=== PATIENT | female | born 1960 | race Caucasian/White ===

== ENCOUNTER 2018-05-27 09:40 | Emergency (ER) | payer OTHER, SELFPAY ==
[2018-05-27 09:40] VITALS: BP 164/82; PULSE 57; RESP 18; TEMP 36.4; O2SAT 99; BMI 40.3
--- NOTE | 2018-05-27 10:07 | ED.VISSUMM ---
- ER Visit Summary Date of Service: 05/27/18 Chief Complaint: Fall and closed head injury History of Present Illness: The patient is a 57 F walking up steps at work tripped and fell forward nor glass door striking with her head. She denies any LOC. She is not on blood thinners. She denies other injuries. She denies any significant headache or neck pain. Work wanted her to be checked out. Physical Examination: Well-appearing middle-aged female. Vital signs are stable afebrile. HEENT exam pupils round reactive light. Extra motions are intact. No facial trauma. There is no hematoma or laceration to her scalp. It is not tender. She struck it on the left top part of her head and there is no signs of trauma. C-spine nontender normal range of motion. Trachea midline. Lungs clear to auscultation bilaterally. Chest wall nontender. Heart regular rate and rhythm no murmur. Abdomen soft nontender normal bowel sounds. No peritoneal signs. Pelvic girdle intact. She is moving all 4 extremities. They are neurovascularly intact. Nontender. Normal range of motion. 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 Dorsi plantar flexion intact. Back is nontender. Spine is nontender. Neurologic exam is normal. GCS of 15. She can stand and ambulate without any difficulty. Fingertip to nose and heel bloom all within normal limits. Test Results: None patient meets no criteria at this time to need any type of brain imaging. Emergency Department Course and Treatment: Head injury instructions. Treatment Plan: Discharge. Head injury instructions. Patient deferred any Tylenol or Motrin at this time. Disposition: Discharge Impression: Fall at work Closed head injury Worker's comp This note was generated with [employer] dictation software. It may contain incorrect words, spelling, and punctuation that were not noted in review of the chart prior to signing ED Disposition - Plan for ED Patient: Chief Complaint: Fall
--- NOTE | 2018-05-27 10:10 | ED.DCSUM_ITS ---
- ER Visit Summary Date of Service: 05/27/18 Chief Complaint: Fall and closed head injury History of Present Illness: The patient is a 57 F walking up steps at work tripped and fell forward nor glass door striking with her head. She denies any LOC. She is not on blood thinners. She denies other injuries. She denies any significant headache or neck pain. Work wanted her to be checked out. Physical Examination: Well-appearing middle-aged female. Vital signs are stable afebrile. HEENT exam pupils round reactive light. Extra motions are intact. No facial trauma. There is no hematoma or laceration to her scalp. It is not tender. She struck it on the left top part of her head and there is no signs of trauma. C-spine nontender normal range of motion. Trachea midline. Lungs clear to auscultation bilaterally. Chest wall nontender. Heart regular rate and rhythm no murmur. Abdomen soft nontender normal bowel sounds. No peritoneal signs. Pelvic girdle intact. She is moving all 4 extremities. They are neurovascularly intact. Nontender. Normal range of motion. 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 Dorsi plantar flexion intact. Back is nontender. Spine is nontender. Neurologic exam is normal. GCS of 15. She can stand and ambulate without any difficulty. Fingertip to nose and heel bloom all within normal limits. Test Results: None patient meets no criteria at this time to need any type of brain imaging. Emergency Department Course and Treatment: Head injury instructions. Treatment Plan: Discharge. Head injury instructions. Patient deferred any Tylenol or Motrin at this time. Disposition: Discharge Impression: Fall at work Closed head injury Worker's comp This note was generated with [employer] dictation software. It may contain incorrect words, spelling, and punctuation that were not noted in review of the chart prior to signing ED Disposition - Plan for ED Patient: Chief Complaint: Fall
--- NOTE | 2018-05-27 10:10 | ED.DEP ---
ED Disposition - Plan for ED Patient: Disposition: Home or Assisted Living Chief Complaint: Fall Instructions: ED Mechanical Fall, ED Head Injury Closed Referrals: [facility] [GROUP OF PHYSICIANS] - Additional Instructions: Ice to all sore areas. Tylenol and Motrin for pain. Return if severe headache, vomiting or not acting herself.
== END 2018-05-27 10:36 | disposition home or self-care (01) ==
PROVIDERS: Emergency Provider Emergency Medicine; Family Provider Student in an Organized Health Care Education/Training Program; PCP Student in an Organized Health Care Education/Training Program
DX: S09.90XA Unspecified injury of head, initial encounter (principal); R40.2410 Glasgow coma scale score 13-15, unspecified time; W01.0XXA Fall on same level from slipping, tripping and stumbling without subsequent striking against object, initial encounter; Y93.01 Activity, walking, marching and hiking; Y92.9 Unspecified place or not applicable; I10 Essential (primary) hypertension; M19.90 Unspecified osteoarthritis, unspecified site; Z79.899 Other long term (current) drug therapy
CPT/HCPCS: 99282

== ENCOUNTER 2018-05-29 16:57 | Emergency (ER) | payer OTHER, SELFPAY ==
[2018-05-29 16:59] VITALS: BP 174/96; PULSE 58; RESP 16; TEMP 36.1; BMI 40.6
--- NOTE | 2018-05-29 19:11 | ED.VISSUMM ---
- ER Visit Summary Date of Service: 05/29/18 Chief Complaint: Head injury History of Present Illness: The patient is a 57 F who presents with a headache. She had a head injury 2 days ago. She slipped while walking up steps and hit her head into a door. She notes that this broke the door. There was no loss of consciousness. No amnesia. Since that time she complains of increased headache and blurry vision. She currently rates her pain a 7 out of 10. It is aching in nature. No vomiting. She is not anticoagulated. She became more concerned due to her worsening symptoms and returned requesting imaging. Physical Examination: Afebrile blood pressure 174/96 vitals otherwise normal No neck tenderness Heart regular rate and rhythm Lungs are clear Active full range of motion ?4 Alert and oriented with a GCS of 15 no focal or lateralizing neurological deficits Test Results: CT the head is normal Emergency Department Course and Treatment: I explained the patient that my clinical suspicion for skull fracture or intracranial hemorrhage is very low. I did advise that her symptoms are consistent with a concussion. She is requesting CT imaging. We did discuss risks and benefits of obtaining imaging including radiation exposure risk. She wishes to proceed. CT of the head is normal. She was advised on supportive care. She was instructed on signs and symptoms to monitor for, conditions under which to return to the emergency department. She discharged home in good condition. Treatment Plan: [] Disposition: Discharge Impression: Closed head injury with concussion This note was generated with [employer] dictation software. It may contain incorrect words, spelling, and punctuation that were not noted in review of the chart prior to signing ED Disposition - Plan for ED Patient: Chief Complaint: Head Injury Referrals: Ted Monroe DO [Primary Care Provider] -
--- NOTE | 2018-05-29 19:13 | ED.DEP ---
ED Disposition - Plan for ED Patient: Chief Complaint: Head Injury Instructions: ED Head Injury Closed, ED Concussion Referrals: Ted Monroe DO [Primary Care Provider] -
[2018-05-29 19:26] VITALS: BP 152/106; PULSE 55; RESP 18; O2SAT 96
== END 2018-05-29 19:26 | disposition home or self-care (01) ==
LOC: ED 17:54
PROVIDERS: Emergency Provider Emergency Medicine; Family Provider Student in an Organized Health Care Education/Training Program; PCP Student in an Organized Health Care Education/Training Program
DX: S06.0X0A Concussion without loss of consciousness, initial encounter (principal); R40.2410 Glasgow coma scale score 13-15, unspecified time; W01.0XXA Fall on same level from slipping, tripping and stumbling without subsequent striking against object, initial encounter; Y93.01 Activity, walking, marching and hiking; Y92.9 Unspecified place or not applicable; I10 Essential (primary) hypertension; Z86.39 Personal history of other endocrine, nutritional and metabolic disease; Z79.899 Other long term (current) drug therapy
CPT/HCPCS: 70450; 99282

== ENCOUNTER → 2018-09-13 06:58 | Outpatient (CLI) | payer OTHER, SELFPAY ==
--- NOTE | 2018-09-13 07:03 | CT_ITS ---
STUDY: CT ABDOMEN AND PELVIS WITH AND WITHOUT CONTRAST REASON FOR EXAM: Female, 58 years old. Microscopic hematuria and urinary urgency. RADIATION DOSAGE (If Supplied By Facility): CTDIvol = ( 30.17 ) mGy, DLP = ( 4190.57 ) mGycm TECHNIQUE: Transaxial images were obtained from the dome of the diaphragm to the symphysis pubis without oral contrast. 100 ml of Isovue 300 contrast was administered. Sagittal and coronal images were reconstructed. Individualized dose optimization techniques were used for this CT. COMPARISON: None. FINDINGS: The visualized lung bases are unremarkable. The visualized portions of the heart are within normal limits. There is decreased attenuation of the liver consistent with steatosis. Normal gallbladder and extrahepatic biliary system. Normal spleen. Normal pancreas. Normal bilateral adrenal glands. Normal right kidney. There is moderate cortical atrophy of the left kidney, consistent with chronic medical renal disease. Nonobstructive tiny calculus is seen in the mid pole calyx of the left kidney. Subcentimeter cyst in the lower pole of the left kidney. There is a 7.3 mm calculus in the distal portion of the left ureter just proximal to the left ureterovesical junction. Normal visualized stomach. Normal small intestine. Moderate amount of fecal material is seen in the colon. The appendix is visualized and appears normal. Normal abdominal aorta. Normal inferior vena cava. Normal retroperitoneum. The urinary bladder is only partially filled with contrast. There is a small umbilical hernia containing fat. Normal osseous structures. CT/CT Abd/Pelvis W/WO Contrast IMPRESSION: Moderate atrophy of the left kidney. 7.3 mm calculus in the distal portion of the left ureter just proximal to the ureterovesical junction. Diffuse fatty infiltration of the liver. Electronically Signed: Joe Lucero MD at 11:13 EST Tel [phone], Service support ,
== END ==
PROVIDERS: Family Provider Student in an Organized Health Care Education/Training Program; PCP Student in an Organized Health Care Education/Training Program; Referring Provider Urology; Visit Provider Urology
DX: R31.29 Other microscopic hematuria (principal)
CPT/HCPCS: 74178; Q9967; A4216

== ENCOUNTER 2018-09-27 11:24 | Day surgery (SDC) | payer OTHER, SELFPAY ==
[2018-09-23 12:43] LABS: Hematocrit 41.4 % (37-47); Hemoglobin 14.1 g/dl (12.0-15.0); Mean Corp Hgb Conc 34.1 g/gl (32-36); Mean Corpuscular Hgb 29.4 pg (27.0-32.0); Mean Corpuscular Volume 86.4 fL (81-99); Mean Platelet Vol. 11.4 fl (6.2-12.0); Platelet Count 174 K/mm3 (150-450); RBC Distribution Width CV 12.6 % (11.6-14.6); RBC Distribution Width SD 39.4 fl (35.1-43.9); Red Blood Count 4.79 M/mm3 (4.2-5.4); White Blood Count 7.2 K/mm3 (4.4-11.0)
[2018-09-23 12:56] LABS: Scan Indicated on CBC? Y/N NO
[2018-09-23 13:09] LABS: Prothrombin Time (Protime)PT. 13.1 SECONDS (11.7-14.9)
[2018-09-23 13:10] LABS: Partial Thromboplast Time 29.5 Seconds (24.1-36.2)
[2018-09-23 14:05] LABS: Pregnancy, Serum, hCG Quali. NEGATIVE Negative (0-9 Nonpreg)
[2018-09-27] VITALS (7 sets, daily range): BP systolic 125–144; BP diastolic 70–85; PULSE 55–65; RESP 14–18; TEMP 36.1–37.3; O2SAT 78–98; BMI 40.6
--- NOTE | 2018-09-27 12:47 | DCINST_ITS ---
You will use the following diet at home:: No restrictions Your food should be the consistency of: Regular Discharge Activity: Return to Normal Activity, May Drive, May not drive while taking narcotic pain medications., May Shower Return to work on:: 09/28/18 May shower in (days): 0 May resume sexual activity in: 3 weeks Call your doctor if your incision/area has: Sudden Increased Bleeding, Foul Smelling Discharge Call your doctor if you observe: Fever of 101 or Higher, Inability to urinate, Inability to have a bowel movement, Using more than one pad per hour, Shortness of breath, Chest pain, Calf discomfort, Uncontrolled pain Cleanse incision/area with: Soap & Water Allergies/Adverse Reactions: Allergies No Known Allergies Allergy (Verified 09/26/18 14:00) Medications to take at Discharge Celecoxib [Celebrex] 200 mg PO DAILY 10/10/13 Hydrochlorothiazide 12.5 mg PO DAILY 05/29/18 Metoprolol Succinate [Toprol Xl] 100 mg PO QHS 05/29/18 cholecalciferol (vitamin D3) 2,000 unit tablet 5,000 unit PO DAILY 90 Days #90 06/03/18 Estrogens, Conjugated [Premarin] 1 dose VAGINAL QODAY 09/26/18 Fluoxetine [Prozac] 20 mg PO DAILY 09/26/18 Multivitamins,Ther W-Minerals [Multivitamin With Minerals] 1 tablet PO DAILY 09/26/18 Ibuprofen 600 mg PO 4X/DAY #30 tab 09/27/18 The following prescriptions were given: Ibuprofen 600 mg PO 4X/DAY #30 tab Primary Care Physician: Ted Monroe DO [Primary Care Provider] - Test Results: Test results from this visit will be discussed in further detail at your follow- up appointment, if applicable. Please Follow Up With: Oh Irizarry MD When: one to two weeks Proposed Discharge Date: 09/27/18
--- NOTE | 2018-09-27 12:47 | PCM.OPRPT ---
Problem List (1) Postmenopausal bleeding Status: Chronic Report of Operation Date of Procedure: 09/27/18 Pre-Operative Diagnosis: Postmenopausal bleeding Post-Operative Diagnosis: Same Surgery/Procedure Performed:: Hysteroscopy, Dilation and Curettage, Endometrial polypectomy Description of Surgical Findings:: Normal appearing cervix. Uterine cavity normal contour. Lining not thickened except for small polyp located near fundus posteriorly postal superintendent: None Type of Anesthesia:: General Anesthesiologist: Darren Rodriguez Special Medications: none Specimen's removed: Endometrial curettings/polyp Drains: none Estimated Blood Loss (mL): 10cc Fluids Replaced: 500cc LR Description of Procedure: Ramona was taken to the OR with IV running. She was given two grams of Cefotetan intravenously for surgical prophylaxis. General anesthesia with LMA introduced without complication. She was then prepped and draped in the dorsal lithotomy position. The bladder was drained with a red rubber catheter. A weighted speculum was placed in the posterior vagina and the anterior lip of the cervix identified and grasped anteriorly with a single toothed tenaculum. The uterus sounded to 8 cm. The cervix was then serially dilated to 27 albanian. The hysteroscope was then placed into the endometrial cavity and findings were as mentioned above. A sharp curettage was then performed. Polyp forceps were used to dislodge the polyp. The hysteroscope was reintroduced to ensure complete removal of the polyp. All instruments were then removed from the vagina. Hemostasis was good. The remainder of the case was performed by Dr. Mccabe. Please see her dictation for the remainder of the case. Grafts/Implants Used: none - Complications none - Admit VTE Documentation VTE Present on Admission: No VTE Mechan Device Prophylaxis: SCD's VTE Pharm Prophylaxis ordered?: No
--- NOTE | 2018-09-27 12:52 | OP.PCM_ITS ---
Problem List (1) Postmenopausal bleeding Status: Chronic Report of Operation Date of Procedure: 09/27/18 Pre-Operative Diagnosis: Postmenopausal bleeding Post-Operative Diagnosis: Same Surgery/Procedure Performed:: Hysteroscopy, Dilation and Curettage, Endometrial polypectomy Description of Surgical Findings:: Normal appearing cervix. Uterine cavity normal contour. Lining not thickened except for small polyp located near fundus posteriorly professor of pathology: None Type of Anesthesia:: General Anesthesiologist: Darren Rodriguez Special Medications: none Specimen's removed: Endometrial curettings/polyp Drains: none Estimated Blood Loss (mL): 10cc Fluids Replaced: 500cc LR Description of Procedure: Ramona was taken to the OR with IV running. She was given two grams of Cefotetan intravenously for surgical prophylaxis. General anesthesia with LMA introduced without complication. She was then prepped and draped in the dorsal lithotomy position. The bladder was drained with a red rubber catheter. A weighted speculum was placed in the posterior vagina and the anterior lip of the cervix identified and grasped anteriorly with a single toothed tenaculum. The uterus sounded to 8 cm. The cervix was then serially dilated to 27 pashto. The hysteroscope was then placed into the endometrial cavity and findings were as mentioned above. A sharp curettage was then performed. Polyp forceps were used to dislodge the polyp. The hysteroscope was reintroduced to ensure complete removal of the polyp. All instruments were then removed from the vagina. Hemostasis was good. The remainder of the case was performed by Dr. Mccabe. Please see her dictation for the remainder of the case. Grafts/Implants Used: none - Complications none - Admit VTE Documentation VTE Present on Admission: No VTE Mechan Device Prophylaxis: SCD's VTE Pharm Prophylaxis ordered?: No
--- NOTE | 2018-09-27 13:05 | EMB_PTH ---
PATIENT: DECLAN VILLEGAS LOC: [facility] [place][id number] AGE/SX: 58/F ROOM: RE09/27/[address]: Dr. Berenice Mccabe MD : [id number] BED: DIS: 09/27/2018 SPEC #: [id number] RECD: 09/27/18 15:05 STATUS: RODRÍGUEZ REQ #: [id number] MARU: 09/27/18 13:[address]: Berenice Mccabe DEPT: SURGICAL PATHOLOGY RECD BY: Rayshawn Ren ENTERED: 09/28/18 10:18 SP TYPE: ENDOM BX/C OTHR DR: MD Dr. Ted Martins, Tissues: A - Endometrium, NOS B - CALCULI Procedures: Surgery Specimen Level I Surgery Specimen Level IV HEADER OPERATION: Hysteroscopy, dilation and curettage, polypectomy PRE-OP DIAGNOSIS: Postmenopausal bleeding TISSUE SUBMITTED: A - Endometrial curettings, B - Calculi for analysis MICROSCOPIC DIAGNOSIS A. Endometrium, curettings: Polypoid fragment of endometrium with mild disorder. Strips of benign superficial glandular and squamous mucosa. B. Left ureteral calculus, removal: Fragments of unremarkable calculi (gross diagnosis only). AM:bev 09/29/18 COMMENT A. The specimen may represent fragments of an endometrial polyp. B. The calculus is submitted in its entirety for chemical stone analysis. The results from this study will be reported separately. MICROSCOPIC DESCRIPTION Slides are reviewed. GROSS DESCRIPTION A - Received in fixative is one container labeled with the patient's name and designated endometrial curettings. The specimen consists of multiple irregular fragments of red-giles soft tissue that in aggregate measure 2.5 x 1.5 x 0.1 cm. The specimen is totally submitted in one cassette. B - Received in fixative is one container labeled with the patient's name and designated left ureteral stone. The specimen consists of two irregular dark giles calculi that in aggregate measure 0.5 x 0.3 x 0.2 cm. The calculi are submitted in their entirety for chemical stone analysis. / AM:bev 09/28/18 TC: 5 CPT: 27458, 01114
--- NOTE | 2018-09-27 14:53 | DCINST_ITS ---
Discharge Diet: No Restrictions Discharge Activity: Return to Normal Activity, May Drive, May not drive while taking narcotic pain medications., May Shower Return to work on:: 09/28/18 May shower in (days): 0 May resume sexual activity in: 3 weeks Call your doctor if your incision/area has: Sudden Increased Bleeding, Foul Smelling Discharge Call your doctor if you observe: Fever of 101 or Higher, Inability to urinate, Inability to have a bowel movement, Using more than one pad per hour, Shortness of breath, Chest pain, Calf discomfort, Uncontrolled pain Cleanse incision/area with: Soap & Water Allergies/Adverse Reactions: Allergies No Known Allergies Allergy (Verified 09/26/18 14:00) Medications to take at Discharge Celecoxib [Celebrex] 200 mg PO DAILY 10/10/13 Hydrochlorothiazide 12.5 mg PO DAILY 05/29/18 Metoprolol Succinate [Toprol Xl] 100 mg PO QHS 05/29/18 cholecalciferol (vitamin D3) 2,000 unit tablet 5,000 unit PO DAILY 90 Days #90 06/03/18 Estrogens, Conjugated [Premarin] 1 dose VAGINAL QODAY 09/26/18 Fluoxetine [Prozac] 20 mg PO DAILY 09/26/18 Multivitamins,Ther W-Minerals [Multivitamin With Minerals] 1 tablet PO DAILY 09/26/18 Ibuprofen 600 mg PO 4X/DAY #30 tab 09/27/18 The following prescriptions were given: Ibuprofen 600 mg PO 4X/DAY #30 tab Primary Care Physician: Ted Monroe DO [Primary Care Provider] - Test Results: Test results from this visit will be discussed in further detail at your follow- up appointment, if applicable. Please Follow Up With: Berenice Mccabe MD When: 4 weeks, call for appt Proposed Discharge Date: 09/27/18
--- NOTE | 2018-09-27 14:56 | PCM.OPRPT ---
Problem List (1) Left ureteral calculus Status: Acute Report of Operation Date of Procedure: 09/27/18 Pre-Operative Diagnosis: left ureteral calculus Post-Operative Diagnosis: Same Surgery/Procedure Performed:: Cystoscopy, left ureteroscopy holmium laser lithotripsy, stone basket extraction, left ureteral stent insertion Description of Surgical Findings:: Large impacted left distal ureteral calculus. Laser lithotripsy with stone basket extraction, followed by ureteroscopy to the proximal left ureter. Ureteral stent 6 x 24 cm. No complication. Type of Anesthesia:: General Anesthesiologist: Darren Rodriguez Special Medications: none Specimen's removed: Ureteral stone fragments Drains: none Estimated Blood Loss (mL): 5cc Description of Procedure: The patient is a 58-year-old female seen in the office for lower abdominal pain, frequency, urgency. I identified microscopic hematuria and evaluated with CT scan revealing a large 1 cm distal left ureteral calculus with atrophic left kidney. After discussing all the risks benefits and alternatives we agreed to proceed with surgical intervention. She was taken to the operating room and placed on the operating room table. Anesthesia monitored the head, neck, airway, IV access, vital signs throughout the case. Once anesthesia was appropriately administered the patient was prepped and draped in usual sterile fashion. Dr. Irizarry performed a D&C and hysteroscopy. At his conclusion I took over the procedure. I recleansed to the perineum including the urethral meatus. A cystourethroscopy was then performed revealing no evidence of mucosal abnormality. A 0.035 Glidewire was then inserted through the left ureteral orifice into the renal pelvis without difficulty. Fluoroscopic visualization confirmed appropriate placement. Using a semirigid ureteroscope, ureteroscopy was performed to the level of the stone. The stone was then fragmented into several small pieces many of which were basketed into the bladder and several were sent for analysis. The ureteral mucosa was significantly edematous likely due to the size and the fact that the stone was impacted. At this time following removal of the stone, ureteroscopy was performed all the way to the level of the proximal ureter as seen on fluoroscopy. No further stones were identified. At this time the guidewire was used to place a 6 x 24 cm double-J ureteral stent. There was curling achieved in the renal pelvis as well as the urinary bladder. The patient's bladder was emptied and the case was terminated. There were no complications. String was not left on the stent. Grafts/Implants Used: 6fr 24cm double J stent - Complications none - Admit VTE Documentation VTE Present on Admission: Yes VTE Mechan Device Prophylaxis: SCD's VTE Pharm Prophylaxis ordered?: No Reason prophylaxis not ordered:: Treatment Not Indicated
[2018-10-10 12:05] LABS: Ca Oxalate, Monohydrate 75 % (.); Calcium Phosphate 20 % (.)
--- OUTSIDE RECORDS SUMMARY | 2018-12-29 20:22 | XMS RPT_ITS ---
:1960 Author Organization OHIP Care Team Providers Name Role Phone DEIDRE GUERRERO Attending Unavailable DEIDRE GUERRERO Referring Unavailable PADMINI SPAULDING ([employer] SPECIALIST) Referring Unavailable PADMINI SPAULDING ([employer]RE[employer] SPECIALIST) Attending Unavailable PADMINI SPAULDING ([employer]RE[employer] SPECIALIST) Referring Unavailable PADMINI SPAULDING ([employer] DIRECTION SPECIALIST) Referring Unavailable JASSON PADMINI L ([employer] DIRECTION SPECIALIST) Referring Unavailable TARA OLVERA (PA) Attending Unavailable PADMINI SPAULDING ([employer] DIRECTION SPECIALIST) Referring Unavailable PADMINI SPAULDING ([employer]RECTION SPECIALIST) Attending Unavailable PADMINI SPAULDING ([employer]RE[employer] SPECIALIST) Referring Unavailable JESSIE OCASIO ([employer]RECTION SPECIALIST) Attending Unavailable MONROE, TED L Attending Unavailable JESSIE OCASIO ([facility]) Attending Unavailable JESISE OCASIO ([employer]RE[employer] SPECIALIST) Referring Unavailable PADMINI SPAULDING ([employer] DIRECTION SPECIALIST) Referring Unavailable MONROE, TED L Referring Unavailable MONROE, TED L Attending Unavailable MONROE, TED L Referring Unavailable MONROE, TED L Referring Unavailable MONROE, TED L Referring Unavailable MONROE, TED L Referring Unavailable MONROE, TED L Attending Unavailable MONROE, TED L Referring Unavailable Berenice Mccabe Attending Unavailable Berenice Mccabe Referring Unavailable Monroe, Ted Primary Care Unavailable Oh Irizarry Consulting Unavailable Shar Genao Attending Unavailable Shar Genao Referring Unavailable Monroe, Ted Primary Care Unavailable Monroe, Ted Primary Care Unavailable Luis Olvera Attending Unavailable Mendel Yost Attending Unavailable Monroe, Ted Referring Unavailable Monroe, Ted Primary Care Unavailable Berenice Mccabe Attending Unavailable Berenice Mccabe Referring Unavailable Monroe, Ted Primary Care Unavailable PROBLEMS PROBLEMS DATE TYPE CONDITION / CODE ATTENDING STATUS SOURCE 09/27/2018 Unknown N95.0 - Berenice Mccabe Active [facility] bleeding / Hospital N95.0(ICD-10) Repository 09/02/2018 Active Encounter for NA Active [facility] screening mammogram [facility] for malignant [place] neoplasm of breast / Repository Z12.31(ICD-10) 08/24/2018 Active Unspecified NA Active [facility] menopausal and [facility] perimenopausal [place] disorder / Repository N95.9(ICD-10) 08/24/2018 Active Postmenopausal NA Active [facility] bleeding / [facility] N95.0(ICD-10) [place] Repository 04/12/2018 Active Other urethritis / NA Active [facility] N34.2(ICD-10) [facility] [place] Repository 08/22/2018 Active Dysuria / NA Active [facility] R30.0(ICD-10) [facility] [place] Repository 08/22/2018 Active Pain in right knee / NA Active [facility] M25.561(ICD-10) [facility] [place] Repository 08/22/2018 Active Other chronic pain / NA Active [facility] G89.29(ICD-10) [facility] [place] Repository 08/22/2018 Active Unspecified injury NA Active [facility] of right lower leg, [facility] initial encounter / [place] S89.91XA(ICD-10) Repository 08/13/2018 Active Encounter for NA Active [facility] immunization / [facility] Z23(ICD-10) [place] Repository 04/12/2018 Active Other fatigue / NA Active [facility] R53.83(ICD-10) [facility] Main [place] Repository 04/12/2018 Active Deficiency of other NA Active [facility] specified B group [facility] vitamins / [place] E53.8(ICD-10) Repository 04/12/2018 Active Vitamin D NA Active [facility] deficiency, [facility] unspecified / [place] E55.9(ICD-10) Repository 06/03/2018 Unknown S09.90XA - Mendel Yost Active [place] Unspecified injury Community of head, initial Hospital encounter / Repository S09.90XA(ICD-10) 12/27/2015 Active Pure NA Active [facility] hypercholesterolemia [facility] , unspecified / [place] E78.00(ICD-10) Repository 04/15/2015 Active Impaired fasting NA Active [facility] glucose / [facility] R73.01(ICD-10) [place] Repository PROCEDURES PROCEDURES No Procedure Records FoundRESULTS RESULTS OBSOLETE Observed: 10/31/2018 Status: COMPLETED Source: [place] 12:00 AM [facility] REPOSITORY Refill (FAMPWS) RAMONA VILLEGAS ([id number]) 1960 F Date Time Provider Department 10/31/18 TED MONROE FAMPWS During your visit today, we recorded the following information about you: Tank Lucas LPN 10/31/2018 10:07 AM Signed Patient has been identified by name and date of : Yes Pharmacy phones for refill(s): Pending Prescriptions Disp Refills FLUOXETINE 20 MG CAPSULE 90 capsule 3 Sig: Take 1 capsule by mouth once daily. BOGDAN: No HYDROCHLOROTHIAZIDE 12.5 MG CAPSULE 90 capsule 3 Sig: Take 1 capsule by mouth once daily. BOGDAN: No Date of last office visit in primary care: 09/13/18 Last 2 Encounter Wt Readings: Date: Wt: 09/13/2018 113.4 kg (250 lb) 08/22/2018 115.2 kg (254 lb) Previous labs/tests for medication: Not applicable Please advise. Thank you. Tank Lucas LPN Allergies As of Date: 10/31/2018 (No Known Allergies) Date Reviewed: 09/13/2018 Reviewed by: Tank Lucas LPN - Fully Assessed Reason for Visit: Refill Request [94] Visit Diagnoses:Anxiety [F41.9] Essential hypertension [I10] Order(s):FLUoxetine (PROZAC) 20 mg capsuleTake 1 capsule by mouth once daily.Disp: 90 capsuleRfl: 3 Hydrochlorothiazide 12.5 mg capsuleTake 1 capsule by mouth once daily.Disp: 90 capsuleRfl: 3 Prescriptions as of 10/31/2018 Sig: FLUOXETINE 20 MG CAPSULE Take 1 capsule by mouth once * HYDROCHLOROTHIAZIDE 12.5 MG C* Take 1 capsule by mouth once * MIRABEGRON ER 50 MG TABLET,EX* Take 50 mg by mouth. CONJUGATED ESTROGENS 0.625 MG* 1 finger- tip sized applicati* CHOLECALCIFEROL (VITAMIN D3) * Take 1 capsule by mouth once * METOPROLOL SUCCINATE ER 100 M* TAKE 1 TABLET DAILY CELECOXIB 200 MG CAPSULE TAKE 1 CAPSULE DAILY CPAP Mask refitting when eligible,* CPAP 1 Device daily at bedtime. Au* PREDNISONE 10 MG TABLET Take 60mg x 3 days, 40mg x 3 * CPAP AutoPAP 10-20 cmH2O, suitable* Problem List As Of Date 10/31/2018 Noted Resolved Hypertension [I10] INVALID FOR* Anxiety [F41.9] INVALID FOR* ZEYNEP (obstructive sleep apnea) [G47.33] INVALID FOR* More... Obesity [E66.9] INVALID FOR* Hypersomnia [G47.10] INVALID FOR* Hypercholesterolemia [E78.00] INVALID FOR* Elevated serum creatinine [R79.89] INVALID FOR* Elevated fasting glucose [R73.01] INVALID FOR* Essential hypertension [I10] INVALID FOR* Urethritis [N34.2] INVALID FOR* Perimenopausal disorder [N95.9] INVALID FOR* Vitamin D deficiency [E55.9] INVALID FOR* Low vitamin B12 level [E53.8] INVALID FOR* Fatigue [R53.83] INVALID FOR* Post-menopausal bleeding [N95.0] INVALID FOR* Postmenopausal symptoms [N95.9] INVALID FOR* Injury of right knee [S89.91XA] INVALID FOR* Chronic pain of right knee [M25.561, G89.29] INVALID FOR* Dysuria [R30.0] INVALID FOR* Microhematuria [R31.29] INVALID FOR* Endometrial thickening on ultrasound [R93.89] INVALID FOR* Prescriptions ordered this encounter Disp Refills Start End FLUOXETINE 20 MG CAPSULE 90 c* 3 10/31/2018 Route: ORAL Sig: Take 1 capsule by mouth once daily. HYDROCHLOROTHIAZIDE 12.5 MG CAPSULE 90 c* 3 10/31/2018 Route: ORAL Sig: Take 1 capsule by mouth once daily. Medications Discontinued During This Encounter FLUoxetine (PROZAC) 20 mg capsule 90 c* 3 01/11/2018 10/31/2018 Route: ORAL Sig: Take 1 capsule by mouth once daily. Disc: Reason for discontinue is not on file. Hydrochlorothiazide 12.5 mg capsule 90 c* 3 08/25/2017 10/31/2018 Route: ORAL Sig: Take 1 capsule by mouth once daily. Disc: Reason for discontinue is not on file. Encounter Status:Closed by TED MONROE DO on 10/31/18 OPERATIVE REPORT Observed: 09/27/2018 Status: F Source: [place] 3:03 PM [facility] REPOSITORY [facility] Medical Records Department [address] [place] [address] Operative Report 09/27/18 1456 MR#: [id number] Acct: [id number] Name: RAMONA VILLEGAS Rep #: [id number] : 1960 58 From: Berenice Mccabe MD PCP: Ted Hinkle DO Status: REG SD Y Location: [place] [address] Problem List (1) Left ureteral calculus Status: Acute Report of Operation Date of Procedure: 09/27/18 Pre-Operative Diagnosis: left ureteral calculus Post-Operative Diagnosis: Same Surgery/Procedure Performed:: Cystoscopy, left ureteroscopy holmium laser lithotripsy, stone basket extraction, left ureteral stent insertion Description of Surgical Findings:: Large impacted left distal ureteral calculus. Laser lithotripsy with stone basket extraction, followed by ureteroscopy to the proximal left ureter. Ureteral stent 6 x 24 cm. No complication. Type of Anesthesia:: General Anesthesiologist: Darren Rodriguez Special Medications: none Specimen's removed: Ureteral stone fragments Drains: none Estimated Blood Loss (mL): 5cc Description of Procedure: The patient is a 58-year-old female seen in the office for lower abdominal pain, frequency, urgency. I identified microscopic hematuria and evaluated with CT scan revealing a large 1 cm distal left ureteral calculus with atrophic left kidney. After discussing all the risks benefits and alternatives we agreed to proceed with surgical intervention. She was taken to the operating room and placed on the operating room table. Anesthesia monitored the head, neck, airway, IV access, vital signs throughout the case. Once anesthesia was appropriately administered the patient was prepped and draped in usual sterile fashion. Dr. Irizarry performed a D AND C and hysteroscopy. At his conclusion I took over the procedure. I recleansed to the perineum including the urethral meatus. A cystourethroscopy was then performed revealing no evidence of mucosal abnormality. A 0.035 Glidewire was then inserted through the left ureteral orifice into the renal pelvis without difficulty. Fluoroscopic visualization confirmed appropriate placement. Using a semirigid ureteroscope, ureteroscopy was performed to the level of the stone. The stone was then fragmented into several small pieces many of which were basketed into the bladder and several were sent for analysis. The ureteral mucosa was significantly edematous likely due to the size and the fact that the stone was impacted. At this time following removal of the stone, ureteroscopy was performed all the way to the level of the proximal ureter as seen on fluoroscopy. No further stones were identified. At this time the guidewire was used to place a 6 x 24 cm double-J ureteral stent. There was curling achieved in the renal pelvis as well as the urinary bladder. The patient's bladder was emptied and the case was terminated. There were no complications. String was not left on the stent. Grafts/Implants Used: 6fr 24cm double J stent - Complications none - Admit VTE Documentation VTE Present on Admission: Yes VTE Mechan Device Prophylaxis: SCD's VTE Pharm Prophylaxis ordered?: No Reason prophylaxis not ordered:: Treatment Not Indicated 09/27/18 8279 <Electronically signed by Berenice Mccabe MD> Date Berenice Mccabe MD CC: Oh Irizarry MD; Berenice Mccabe MD; Ted Hinkle DO Signed DISCHARGE INSTRUCTION Observed: 09/27/2018 Status: F Source: [place] 2:53 PM [facility] REPOSITORY [facility] Medical Records Department [address] [place] [address] Instructions for Home/Discharge Instructions 09/27/18 1452 MR#: [id number] Acct: [id number] Name: RAMONA VILLEGAS Rep #: [id number] : 1960 58 From: Berenice Mccabe MD PCP: Ted Hinkle DO Status: REG SDC Discharge Diet: No Restrictions Discharge Activity: Return to Normal Activity, May Drive, May not drive while taking narcotic pain medications., May Shower Return to work on:: 09/28/18 May shower in (days): 0 May resume sexual activity in: 3 weeks Call your doctor if your incision/area has: Sudden Increased Bleeding, Foul Smelling Discharge Call your doctor if you observe: Fever of 101 or Higher, Inability to urinate, Inability to have a bowel movement, Using more than one pad per hour, Shortness of breath, Chest pain, Calf discomfort, Uncontrolled pain Cleanse incision/area with: Soap AND Water Allergies/Adverse Reactions: Allergies No Known Allergies Allergy (Verified 09/26/18 14:00) Medications to take at Discharge Celecoxib [Celebrex] 200 mg PO DAILY 10/10/13 Hydrochlorothiazide 12.5 mg PO DAILY 05/29/18 Metoprolol Succinate [Toprol Xl] 100 mg PO QHS 05/29/18 cholecalciferol (vitamin D3) 2,000 unit tablet 5,000 unit PO DAILY 90 Days #90 06/03/18 Estrogens, Conjugated [Premarin] 1 dose VAGINAL QODAY 09/26/18 Fluoxetine [Prozac] 20 mg PO DAILY 09/26/18 Multivitamins,Ther W-Minerals [Multivitamin With Minerals] 1 tablet PO DAILY 09/26/18 Ibuprofen 600 mg PO 4X/DAY #30 tab 09/27/18 The following prescriptions were given: Ibuprofen 600 mg PO 4X/DAY #30 tab Primary Care Physician: Ted Monroe DO [Primary Care Provider] - Test Results: Test results from this visit will be discussed in further detail at your follow-up appointment, if applicable. Please Follow Up With: Berenice Mccabe MD When: 4 weeks, call for appt Proposed Discharge Date: 09/27/18 09/27/18 1453 <Electronically signed by Berenice Mccabe MD> Date Berenice Mccabe MD CC: Oh Irizarry MD; Ted Hinkle DO CALCULI, URINARY W / Collected: 09/27/2018 Status: F Source: [place] 2:40 PM [facility] REPOSITORY Order Comment: Comments: Left Ureteral Stone TYPE CODE TESTS RESULT OUT OF RANGE REFERENCE UNITS LAB L3650.0200 . Normal COLOR Brown LAB L3650.0300 . mm Normal SIZE Comment Result Comment: Specimen received as fragments. LAB L3650.0400 . mg Normal WEIGHT 50.5 LAB L3650.0500 . Normal . Comment Result Comment: Percentage (Represents the % composition) LAB L3650.0600 . % CA OXAL DIHYDR 05 Normal LAB L3650.0700 . % CA OXAL 75 Normal [place] LAB L3650.0800 . % CA PHOSPHATE 20 Normal LAB L3650.0900 . MAG NONI PHOS Test not Normal performed LAB L3650.1000 . URIC ACID Test not Normal performed LAB L3650.1100 . URIC ACID Test not Normal DIHYD performed LAB L3650.1200 . AMM ACID URATE Test not Normal performed LAB L3650.1300 . NA ACID URATE Test not Normal performed LAB L3650.1400 . CA HYDROG PHOS Test not Normal performed LAB L3650.1500 . CYSTINE Test not Normal performed LAB L3650.1600 . CHOLESTEROL Test not Normal performed LAB L3650.1700 . CA Test not Normal BILIRUBINATE performed LAB L3650.1800 . CA CARBONATE Test not Normal performed LAB L3650.1900 . TRIAMTERENE Test not Normal performed LAB L3650.2000 . NEWBERYITE Test not Normal performed LAB L3650.2100 . DRIED BLOOD Test not Normal performed LAB L3650.2200 . CELL MATERIAL Test not Normal performed LAB L3650.2250 . NIDUS No Nidus Normal visualized LAB L3650.2325 . SHELL Test not Normal performed LAB L3650.2350 . SURFACE Test not Normal CRYSTAL performed LAB L3650.2400 . COMMENT Test not Normal performed LAB L3650.2500 . COMMENT Test not Normal performed LAB L3650.2600 . PHOTO Comment Normal Result Comment: Photograph will follow under separate cover. LAB L3650.2700 . Normal COMMENT Comment Result Comment: Physician questions regarding Calculi Analysis contact [employer] at: [phone]. LAB L3650.2800 . Normal COMMENT Comment Result Comment: Calculi report with photograph will follow via computer, mail or [employer] delivery. LAB L3650.2900 . Normal Disclaimer Comment Result Comment: This test was developed and its performance characteristics determined by [facility]. It has not been cleared or approved by the Food and Drug Administration. Performed at: [address] [id number] [employer]addle Dyeing Machine Operator: Chen Johnson MD, Phone: [phone] Performed By: #### L3650.0100 #### [facility] (refer to report for specific site) refer to report for address and phone number OPERATIVE REPORT Observed: 09/27/2018 Status: F Source: [place] 1:33 PM [facility] REPOSITORY [facility] Medical Records Department [address] [place] [address] Operative Report 09/27/18 1247 MR#: [id number] Acct: [id number] Name: RAMONA VILLEGAS Rep #: [id number] : 1960 58 From: Oh Irizarry MD PCP: Ted Hinkle DO Status: REG [place] Y Location: [place] [address] Problem List (1) Postmenopausal bleeding Status: Chronic Report of Operation Date of Procedure: 09/27/18 Pre-Operative Diagnosis: Postmenopausal bleeding Post-Operative Diagnosis: Same Surgery/Procedure Performed:: Hysteroscopy, Dilation and Curettage, Endometrial polypectomy Description of Surgical Findings:: Normal appearing cervix. Uterine cavity normal contour. Lining not thickened except for small polyp located near fundus posteriorly marina porter: None Type of Anesthesia:: General Anesthesiologist: Darren Rodriguez Special Medications: none Specimen's removed: Endometrial curettings/polyp Drains: none Estimated Blood Loss (mL): 10cc Fluids Replaced: 500cc LR Description of Procedure: Ramona was taken to the OR with IV running. She was given two grams of Cefotetan intravenously for surgical prophylaxis. General anesthesia with LMA introduced without complication. She was then prepped and draped in the dorsal lithotomy position. The bladder was drained with a red rubber catheter. A weighted speculum was placed in the posterior vagina and the anterior lip of the cervix identified and grasped anteriorly with a single toothed tenaculum. The uterus sounded to 8 cm. The cervix was then serially dilated to 27 romansh. The hysteroscope was then placed into the endometrial cavity and findings were as mentioned above. A sharp curettage was then performed. Polyp forceps were used to dislodge the polyp. The hysteroscope was reintroduced to ensure complete removal of the polyp. All instruments were then removed from the vagina. Hemostasis was good. The remainder of the case was performed by Dr. Mccabe. Please see her dictation for the remainder of the case. Grafts/Implants Used: none - Complications none - Admit VTE Documentation VTE Present on Admission: No VTE Mechan Device Prophylaxis: SCD's VTE Pharm Prophylaxis ordered?: No 09/27/18 1333 <Electronically signed by Oh Irizarry MD> Date Oh Irizarry MD CC: Oh Irizarry MD; Berenice Mccabe MD; Ted Hinkle DO Signed ENDOMETRIAL BX/CURETTINGS Observed: 09/27/2018 Status: F Source: [place] 1:05 PM [facility] REPOSITORY Patient: RAMONA VILLEGAS : 1960 (58/F) Acct Num: [id number] Phys: Berenice Mccabe MD Unit Num: [id number] Loc: [place] Specimen: [id number] Received: 09/27/18 - 1505 Spec Type: ENDOM BX/C TISSUES 1 TISSUES: A. Endometrium, NOS B. CALCULI COMMENT A. The specimen may represent fragments of an endometrial polyp. B. The calculus is submitted in its entirety for chemical stone analysis. The results from this study will be reported separately. GROSS DESCRIPTION A - Received in fixative is one container labeled with the patient's name and designated endometrial curettings. The specimen consists of multiple irregular fragments of red-giles soft tissue that in aggregate measure 2.5 x 1.5 x 0.1 cm. The specimen is totally submitted in one cassette. B - Received in fixative is one container labeled with the patient's name and designated left ureteral stone. The specimen consists of two irregular dark giles calculi that in aggregate measure 0.5 x 0.3 x 0.2 cm. The calculi are submitted in their entirety for chemical stone analysis. / AM:bev 09/28/18 TC: 5 CPT: 27065, 06016 HEADER OPERATION: Hysteroscopy, dilation and curettage, polypectomy PRE-OP DIAGNOSIS: Postmenopausal bleeding TISSUE SUBMITTED: A - Endometrial curettings, B - Calculi for analysis MICROSCOPIC DESCRIPTION Slides are reviewed. MICROSCOPIC DIAGNOSIS A. Endometrium, curettings: Polypoid fragment of endometrium with mild disorder. Strips of benign superficial glandular and squamous mucosa. B. Left ureteral calculus, removal: Fragments of unremarkable calculi (gross diagnosis only). AM:bev 09/29/18 Signed Derrick Love DO 09/29/18 <signature on file> Performed By: #### PEMB #### [facility] [address] [place], [address] DISCHARGE INSTRUCTION Observed: 09/27/2018 Status: F Source: [place] 12:47 PM [facility] REPOSITORY [facility] Medical Records Department [address] [facility] [place] [address] Instructions for Home/Discharge Instructions 09/27/18 1244 MR#: [id number] Acct: [id number] Name: RAMONA VILLEGAS Rep #: [id number] : 1960 58 From: Oh Irizarry MD PCP: Ted Hinkle DO Status: REG [place] You will use the following diet at home:: No restrictions Your food should be the consistency of: Regular Discharge Activity: Return to Normal Activity, May Drive, May not drive while taking narcotic pain medications., May Shower Return to work on:: 09/28/18 May shower in (days): 0 May resume sexual activity in: 3 weeks Call your doctor if your incision/area has: Sudden Increased Bleeding, Foul Smelling Discharge Call your doctor if you observe: Fever of 101 or Higher, Inability to urinate, Inability to have a bowel movement, Using more than one pad per hour, Shortness of breath, Chest pain, Calf discomfort, Uncontrolled pain Cleanse incision/area with: Soap AND Water Allergies/Adverse Reactions: Allergies No Known Allergies Allergy (Verified 09/26/18 14:00) Medications to take at Discharge Celecoxib [Celebrex] 200 mg PO DAILY 10/10/13 Hydrochlorothiazide 12.5 mg PO DAILY 05/29/18 Metoprolol Succinate [Toprol Xl] 100 mg PO QHS 05/29/18 cholecalciferol (vitamin D3) 2,000 unit tablet 5,000 unit PO DAILY 90 Days #90 06/03/18 Estrogens, Conjugated [Premarin] 1 dose VAGINAL QODAY 09/26/18 Fluoxetine [Prozac] 20 mg PO DAILY 09/26/18 Multivitamins,Ther W-Minerals [Multivitamin With Minerals] 1 tablet PO DAILY 09/26/18 Ibuprofen 600 mg PO 4X/DAY #30 tab 09/27/18 The following prescriptions were given: Ibuprofen 600 mg PO 4X/DAY #30 tab Primary Care Physician: Ted Monroe DO [Primary Care Provider] - Test Results: Test results from this visit will be discussed in further detail at your follow-up appointment, if applicable. Please Follow Up With: Oh Irizarry MD When: one to two weeks Proposed Discharge Date: 09/27/18 09/27/18 1247 <Electronically signed by Oh Irizarry MD> Date Oh Irizarry MD CC: Oh Irizarry MD; Ted Hinkle DO TYPE AND SCREEN Collected: 09/27/2018 Status: F Source: [place] 12:17 PM [facility] REPOSITORY Order Comment: Reason for Type AND Screen/Red Cells: SURGERY Surgery Date: 09/27/18 Time: 1200 Other - use comments: . Type of Surgery: OTHER TYPE CODE TESTS RESULT OUT OF RANGE REFERENCE UNITS LAB B10.0800 O Normal BLOOD TYPE GEL POSITIVE LAB B100.4000 Normal Antibody NEGATIVE Screen Performed By: #### B101.7450 #### [facility] [address], [address] CBC-COMPLETE BLOOD CNT Collected: 09/23/2018 Status: F Source: [place] NO DIFF 12:04 PM [facility] REPOSITORY TYPE CODE TESTS RESULT OUT OF RANGE REFERENCE UNITS LAB L100.1000 4.4-11.0 K/mm3 Normal WBC 7.2 LAB L100.1200 4.2-5.4 M/mm3 Normal RBC 4.79 LAB L100.1300 12.0-15.0 g/dl Normal HGB 14.1 LAB L100.1400 37-47 % Normal HCT 41.4 LAB L100.1500 81-99 fL Normal MCV 86.4 LAB L100.1600 27.0-32.0 pg Normal MCH 29.4 LAB L100.1700 32-36 g/gl Normal MCHC 34.1 LAB L100.1810 11.6-14.6 % Normal RDW CV 12.6 LAB L100.1820 35.1-43.9 fl Normal RDW SD 39.4 LAB L100.1900 150-450 K/mm3 Normal PLT 174 LAB L100.2000 6.2-12.0 fl Normal MPV 11.4 Performed By: #### L100.0500 #### [facility] [address] [place], [place], [address] PROTHROMBIN TIME W/INR Collected: 09/23/2018 Status: F Source: [place] 12:04 PM [facility] REPOSITORY TYPE CODE TESTS RESULT OUT OF RANGE REFERENCE UNITS LAB L300.4150 11.7-14.9 SECONDS Normal PROTIME 13.1 LAB L300.4200 Normal INR 1.0 Performed By: #### L300.3900, L300.4310 #### [facility] [address], [address] PARTIAL THROMBOPLAST Collected: 09/23/2018 Status: F Source: [place] TIME 12:04 PM [facility] REPOSITORY TYPE CODE TESTS RESULT OUT OF RANGE REFERENCE UNITS LAB L300.4310 24.1-36.2 Seconds Normal PTT 29.5 Performed By: #### L300.3900, L300.4310 #### [facility] [address] [place], [address] ,SERUM,HCG QUALI. Collected: Status: F Source: [place] 09/23/2018 12:04 PM [facility] REPOSITORY TYPE CODE TESTS RESULT OUT OF REFERENCE UNITS RANGE LAB L700.7000 0-9 Nonpreg Negative Normal HCGSQUAL NEGATIVE LAB L700.6700 =>Qualitative mIU/mL Normal HCG Qual 2 triggr Performed By: #### L700.6800 #### [facility] [address] [place], [address] PROGRESS Observed: 09/13/2018 Status: COMPLETED Source: [place] 12:07 PM [facility] REPOSITORY O ID: [id number] Author: Ted Monroe Service: (none) Author Type: Physician Type: Progress Notes Filed: 09/13/2018 12:09 PM Note Text: CC: Ramona Villegas is a 58 year old female who presents to the office for follow up HPI: Seen in office 3 weeks ago, at that time: HTN, has been well controlled, no concerns, denies any chest pains or dyspnea or dizziness/LH ? HPL, not on statin therapy, was trying to diet control ? Cholesterol, Total Date Value Ref Range Status 11/22/2017 247 (H) <200 mg/dL Final Comment: <200 mg/dL, Desirable 200-239 mg/dL, Borderline high >239 mg/dL, High ? HDL Cholesterol Date Value Ref Range Status 11/22/2017 51 >39 mg/dL Final Comment: 40-59 mg/dL, Acceptable >59 mg/dL, High: Negative risk factor for coronary heart disease <40 mg/dL, Low: Positive risk factor for coronary heart disease ? LDL Cholesterol Date Value Ref Range Status 11/22/2017 154 (H) <100 mg/dL Final Comment: <100 mg/dL, Optimal 100-129 mg/dL, Near optimal/above optimal 130-159 mg/dL, Borderline high 160-189 mg/dL, High >189 mg/dL, Very high Secondary prevention optimal LDL Cholesterol levels are recommended to be < 70 mg/dL ? Triglyceride Date Value Ref Range Status 11/22/2017 209 (H) <150 mg/dL Final Comment: <150 mg/dL, Normal 150-199 mg/dL, Borderline high 200-499 mg/dL, High >499 mg/dL, Very high ? ? Urinary urgency and frequency and pelvic pressure, mostly discomfort at area of urethra when urinating. symptoms x several months, thought improved with antibiotic given this summer and now present again, No fevers or chills or flank pain, no hx of kidney stones. ? Does admit to one day of bleeding vaginal that occurred 2 months ago, did not notify anyone in the office, bright red blood x 1 day, resolved. Did not get evaluated for this. No other symptoms. ? Right knee pain, started after a trip and fall that occurred in May, mostly right over the knee cap area medially by description, mostly with prolonged standing or walking up steps, no obvious swelling, area was bruised when tripped and fell going up steps and landed against knee cap area. No routine use of ice or heat or NSAIDs ? ZEYNEP, use of CPAP ? Anxiety, stable, use of Prozac as prescribed. No new changes Currently She has seen Urologist Dr. Mccabe and has been ordered CT kidney which she had today as well as order for Cystoscopy to evaluate her urinary urgency and pressure symptoms as well as microscopic hematuria. She also has been seen by Production Checker Dr. Irizarry at [place] [facility] office and will have an upcoming [facility] procedure for thickened endometrial lining that is present to further evaluate PAST MEDICAL HISTORY Diagnosis Date - Anxiety - Arthritis - Hypercholesteraemia - Hypertension - ZEYNEP (obstructive sleep apnea) 11/15/2013 [facility] for AutoPAP - Overweight(278.02) - Post-menopausal PAST SURGICAL HISTORY Procedure Laterality Date - COLONOSCOP W/ OR W/O BRSH SPEC 09/04/2013 Colonoscopy- 3 small polyps - COLONOSCOPY N/A 11/09/2016 Current Outpatient Prescriptions: mirabegron (MYRBETRIQ) 50 mg Tb24 Take 50 mg by mouth. conjugated estrogens (PREMARIN) vaginal cream 1 finger- tip sized application every other evening Cholecalciferol, Vitamin D3, 5,000 unit cap Take 1 capsule by mouth once daily. metoprolol succinate ER (TOPROL XL) 100 mg Tb24 TAKE 1 TABLET DAILY celecoxib (CELEBREX) 200 mg capsule TAKE 1 CAPSULE DAILY FLUoxetine (PROZAC) 20 mg capsule Take 1 capsule by mouth once daily. Hydrochlorothiazide 12.5 mg capsule Take 1 capsule by mouth once daily. CPAP AutoPAP 10-20 cmH2O, suitable mask, humidity, filters, chin strap. Lifetime supplies. Dx: 327.23. compliance rpt to Dr. Miller in 6 wks. CPAP Mask refitting when eligible, suitable mask per pt preference, chin strap, head gear, humidity, tubing, lifetime supplies. G47.33 Obstructive Sleep Apnea CPAP 1 Device daily at bedtime. Auto PAP with Settings 10- 20 cm H2O, suitable mask per pt preference, chin strap, head gear, humidity, tubing, lifetime supplies. G47.33 Obstructive Sleep Apnea. Current machine broken beyond repair. predniSONE (DELTASONE) 10 mg tablet Take 60mg x 3 days, 40mg x 3 days, 20mg x 3 days, 10mg x 3 days. Take with food. No current facility-administered medications for this visit. ALLERGIES No Known Allergies Social History Marital status: Single Spouse name: Years of education: Number of children: Social History Main Topics Smoking status: Never Smoker Smokeless tobacco: Never Used Alcohol use: Yes Comment: occasionally Drug use: No Social History Narrative Goes by Olesya DAVIS: See HPI PE: BP 120/60 Pulse 56 Temp (Src) 97.5 (Right Tympanic) Resp 20 Wt 250 lb (113.4kg) LMP 07/25/2015 Gen: AANDOX3, NAD, non-toxic appearing HEENT: PERRLA, EOMs intact b/l, nares without drainage, pharynx without erythema, exudate, lesions, or drainage. Uvula midline. Neck: No LAD, no thyromegaly, no meningismus. CV: RRR, no murmur Lungs: CTA b/l, no wheezing Skin: No rashes, lesions, or wounds on exposed skin. ASSESSMENT/PLAN: 1. Urethritis - ICD9: 597.80, ICD10: N34.2 (primary diagnosis) - follow up with testing per Dr. Mccabe Urologist 2. Microhematuria - ICD9: 599.72, ICD10: R31.29 - see above 3. Endometrial thickening on ultrasound - ICD9: 793.5, ICD10: R93.89 - f/u with [employer] for [facility] for next steps Ted Monroe DO Return if no improvement. Follow up with Ted Monroe DO. Discussed risks, benefits, alternatives, and potential side effects of medications. Patient/Guardian expressed understanding and agreed with the plan. See patient instructions. Ted Monroe DO [address] [place] [address] CNOV Observed: 09/13/2018 Status: COMPLETED Source: [place] 9:00 AM [facility] REPOSITORY Office Visit (FAMPWS) RAMONA VILLEGAS ([id number]) 1960 F Date Time Provider Department 09/13/18 9:00 AM TED MONROEWS During your visit today, we recorded the following information about you: Temperature Pulse Respiration Blood pressure 97.5 degrees 56/minute 20/minute 120/60 Weight 113.4 kg Ted Monroe DO 09/13/2018 9:41 AM Signed Interstitial cystitis diagnosis- potassium instillation into bladder. Celebrex - off of this for 5 days before [facility] with Dr. Mini Monroe DO 09/13/2018 12:09 PM Signed CC: Ramona Henrik Villegas is a 58 year old female who presents to the office for follow up HPI: Seen in office 3 weeks ago, at that time: HTN, has been well controlled, no concerns, denies any chest pains or dyspnea or dizziness/LH ? HPL, not on statin therapy, was trying to diet control ? Cholesterol, Total Date Value Ref Range Status 11/22/2017 247 (H) <200 mg/dL Final Comment: <200 mg/dL, Desirable 200-239 mg/dL, Borderline high >239 mg/dL, High ? HDL Cholesterol Date Value Ref Range Status 11/22/2017 51 >39 mg/dL Final Comment: 40-59 mg/dL, Acceptable >59 mg/dL, High: Negative risk factor for coronary heart disease <40 mg/dL, Low: Positive risk factor for coronary heart disease ? LDL Cholesterol Date Value Ref Range Status 11/22/2017 154 (H) <100 mg/dL Final Comment: <100 mg/dL, Optimal 100-129 mg/dL, Near optimal/above optimal 130-159 mg/dL, Borderline high 160-189 mg/dL, High >189 mg/dL, Very high Secondary prevention optimal LDL Cholesterol levels are recommended to be < 70 mg/dL ? Triglyceride Date Value Ref Range Status 11/22/2017 209 (H) <150 mg/dL Final Comment: <150 mg/dL, Normal 150-199 mg/dL, Borderline high 200-499 mg/dL, High >499 mg/dL, Very high ? ? Urinary urgency and frequency and pelvic pressure, mostly discomfort at area of urethra when urinating. symptoms x several months, thought improved with antibiotic given this summer and now present again, No fevers or chills or flank pain, no hx of kidney stones. ? Does admit to one day of bleeding vaginal that occurred 2 months ago, did not notify anyone in the office, bright red blood x 1 day, resolved. Did not get evaluated for this. No other symptoms. ? Right knee pain, started after a trip and fall that occurred in May, mostly right over the knee cap area medially by description, mostly with prolonged standing or walking up steps, no obvious swelling, area was bruised when tripped and fell going up steps and landed against knee cap area. No routine use of ice or heat or NSAIDs ? ZEYNEP, use of CPAP ? Anxiety, stable, use of Prozac as prescribed. No new changes Currently She has seen Urologist Dr. Mccabe and has been ordered CT kidney which she had today as well as order for Cystoscopy to evaluate her urinary urgency and pressure symptoms as well as microscopic hematuria. She also has been seen by Production Checker Dr. Irizarry at [place] [facility] office and will have an upcoming [facility] procedure for thickened endometrial lining that is present to further evaluate PAST MEDICAL HISTORY Diagnosis Date - Anxiety - Arthritis - Hypercholesteraemia - Hypertension - ZEYNEP (obstructive sleep apnea) 11/15/2013 [facility] for AutoPAP - Overweight(278.02) - Post-menopausal PAST SURGICAL HISTORY Procedure Laterality Date - COLONOSCOP W/ OR W/O BRSH SPEC 09/04/2013 Colonoscopy- 3 small polyps - COLONOSCOPY N/A 11/09/2016 Current Outpatient Prescriptions: mirabegron (MYRBETRIQ) 50 mg Tb24 Take 50 mg by mouth. conjugated estrogens (PREMARIN) vaginal cream 1 finger- tip sized application every other evening Cholecalciferol, Vitamin D3, 5,000 unit cap Take 1 capsule by mouth once daily. metoprolol succinate ER (TOPROL XL) 100 mg Tb24 TAKE 1 TABLET DAILY celecoxib (CELEBREX) 200 mg capsule TAKE 1 CAPSULE DAILY FLUoxetine (PROZAC) 20 mg capsule Take 1 capsule by mouth once daily. Hydrochlorothiazide 12.5 mg capsule Take 1 capsule by mouth once daily. CPAP AutoPAP 10-20 cmH2O, suitable mask, humidity, filters, chin strap. Lifetime supplies. Dx: 327.23. compliance rpt to Dr. Miller in 6 wks. CPAP Mask refitting when eligible, suitable mask per pt preference, chin strap, head gear, humidity, tubing, lifetime supplies. G47.33 Obstructive Sleep Apnea CPAP 1 Device daily at bedtime. Auto PAP with Settings 10- 20 cm H2O, suitable mask per pt preference, chin strap, head gear, humidity, tubing, lifetime supplies. G47.33 Obstructive Sleep Apnea. Current machine broken beyond repair. predniSONE (DELTASONE) 10 mg tablet Take 60mg x 3 days, 40mg x 3 days, 20mg x 3 days, 10mg x 3 days. Take with food. No current facility-administered medications for this visit. ALLERGIES No Known Allergies Social History Marital status: Single Spouse name: Years of education: Number of children: Social History Main Topics Smoking status: Never Smoker Smokeless tobacco: Never Used Alcohol use: Yes Comment: occasionally Drug use: No Social History Narrative Goes by Olesya ROS: See HPI PE: BP 120/60 Pulse 56 Temp (Src) 97.5 (Right Tympanic) Resp 20 Wt 250 lb (113.4kg) LMP 07/25/2015 Gen: AANDOX3, NAD, non-toxic appearing HEENT: PERRLA, EOMs intact b/l, nares without drainage, pharynx without erythema, exudate, lesions, or drainage. Uvula midline. Neck: No LAD, no thyromegaly, no meningismus. CV: RRR, no murmur Lungs: CTA b/l, no wheezing Skin: No rashes, lesions, or wounds on exposed skin. ASSESSMENT/PLAN: 1. Urethritis - ICD9: 597.80, ICD10: N34.2 (primary diagnosis) - follow up with testing per Dr. Mccabe Urologist 2. Microhematuria - ICD9: 599.72, ICD10: R31.29 - see above 3. Endometrial thickening on ultrasound - ICD9: 793.5, ICD10: R93.89 - f/u with [employer] for [facility] for next steps Ted Monroe DO Return if no improvement. Follow up with Ted Monroe DO. Discussed risks, benefits, alternatives, and potential side effects of medications. Patient/Guardian expressed understanding and agreed with the plan. See patient instructions. Ted Monroe DO [address] [place] [address] Referring Provider: TED MONROE [[id number]] Allergies As of Date: 09/13/2018 (No Known Allergies) Date Reviewed: 09/13/2018 Reviewed by: Tank Lucas LPN - Fully Assessed Reason for Visit: Follow Up [171] Cmt: 5 months Primary Visit Diagnosis:Urethritis [N34.2] Other Visit Diagnoses:Microhematuria [R31.29] Endometrial thickening on ultrasound [R93.89] Prescriptions as of 09/13/2018 Sig: MIRABEGRON ER 50 MG TABLET,EX* Take 50 mg by mouth. CONJUGATED ESTROGENS 0.625 MG* 1 finger- tip sized applicati* CHOLECALCIFEROL (VITAMIN D3) * Take 1 capsule by mouth once * METOPROLOL SUCCINATE ER 100 M* TAKE 1 TABLET DAILY CELECOXIB 200 MG CAPSULE TAKE 1 CAPSULE DAILY FLUOXETINE 20 MG CAPSULE Take 1 capsule by mouth once * HYDROCHLOROTHIAZIDE 12.5 MG C* Take 1 capsule by mouth once * CPAP AutoPAP 10-20 cmH2O, suitable* CPAP Mask refitting when eligible,* CPAP 1 Device daily at bedtime. Au* PREDNISONE 10 MG TABLET Take 60mg x 3 days, 40mg x 3 * Problem List As Of Date 09/13/2018 Noted Resolved Hypertension [I10] INVALID FOR* Anxiety [F41.9] INVALID FOR* ZEYNEP (obstructive sleep apnea) [G47.33] INVALID FOR* More... Obesity [E66.9] INVALID FOR* Hypersomnia [G47.10] INVALID FOR* Hypercholesterolemia [E78.00] INVALID FOR* Elevated serum creatinine [R79.89] INVALID FOR* Elevated fasting glucose [R73.01] INVALID FOR* Essential hypertension [I10] INVALID FOR* Urethritis [N34.2] INVALID FOR* Perimenopausal disorder [N95.9] INVALID FOR* Vitamin D deficiency [E55.9] INVALID FOR* Low vitamin B12 level [E53.8] INVALID FOR* Fatigue [R53.83] INVALID FOR* Post-menopausal bleeding [N95.0] INVALID FOR* Postmenopausal symptoms [N95.9] INVALID FOR* Injury of right knee [S89.91XA] INVALID FOR* Chronic pain of right knee [M25.561, G89.29] INVALID FOR* Dysuria [R30.0] INVALID FOR* Microhematuria [R31.29] INVALID FOR* Endometrial thickening on ultrasound [R93.89] INVALID FOR* Other instructions from your clinician: Interstitial cystitis diagnosis- potassium instillation into bladder. Celebrex - off of this for 5 days before [facility] with Dr. Morse Encounter Status:Closed by TED MONROE DO on 09/13/18 CT ABD/PELVIS W/WO Observed: 09/13/2018 Status: F Source: [place] CONTR[place] 7:03 AM [facility] REPOSITORY [facility] Imaging Services [address] [place], [place] [address] [address] CT Abd/Pelvis W/WO Contrast MR#: [id number] Acct: [id number] Name: RAMONA VILLEGAS Rep #: [id number] : 1960 F 58 From: Joe Lucero MD PCP: Ted Hinkle, DO Status: REG CLI Study: CT Abd/Pelvis W/WO Contrast Date of Exam: 09/13/18 Exam# [id number] Ordering Dr: Berenice Mccabe MD STUDY: CT ABDOMEN AND PELVIS WITH AND WITHOUT CONTRAST REASON FOR EXAM: Female, 58 years old. Microscopic hematuria and urinary urgency. RADIATION DOSAGE (If Supplied By Facility): CTDIvol = ( 30.17 ) mGy, DLP = ( 4190.57 ) mGycm TECHNIQUE: Transaxial images were obtained from the dome of the diaphragm to the symphysis pubis without oral contrast. 100 ml of Isovue 300 contrast was administered. Sagittal and coronal images were reconstructed. Individualized dose optimization techniques were used for this CT. COMPARISON: None. FINDINGS: The visualized lung bases are unremarkable. The visualized portions of the heart are within normal limits. There is decreased attenuation of the liver consistent with steatosis. Normal gallbladder and extrahepatic biliary system. Normal spleen. Normal pancreas. Normal bilateral adrenal glands. Normal right kidney. There is moderate cortical atrophy of the left kidney, consistent with chronic medical renal disease. Nonobstructive tiny calculus is seen in the mid pole calyx of the left kidney. Subcentimeter cyst in the lower pole of the left kidney. There is a 7.3 mm calculus in the distal portion of the left ureter just proximal to the left ureterovesical junction. Normal visualized stomach. Normal small intestine. Moderate amount of fecal material is seen in the colon. The appendix is visualized and appears normal. Normal abdominal aorta. Normal inferior vena cava. Normal retroperitoneum. The urinary bladder is only partially filled with contrast. There is a small umbilical hernia containing fat. Normal osseous structures. CT/CT Abd/Pelvis W/WO Contrast IMPRESSION: Moderate atrophy of the left kidney. 7.3 mm calculus in the distal portion of the left ureter just proximal to the ureterovesical junction. Diffuse fatty infiltration of the liver. Electronically Signed: Joe Lucero MD at 11:13 EST Tel [phone], Service support , CC: Berenice Mccabe MD; Ted Hinkle DO 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: Signed CNCO Observed: 09/02/2018 Status: COMPLETED Source: [place] 10:31 AM [facility] REPOSITORY HNO ID: [id number] Author: Mammography Coordinator Service: (none) Author Type: Physician Type: Letter Filed: 09/05/2018 11:31 PM Note Text: September 02, 2018 PID: [id number] Ramona Villegas [address] [place] [address] Dear Ms. Villegas, We are pleased to inform you that the results of your recent breast imaging exam on 09/02/2018 are normal. Your mammogram demonstrates that you have dense breast tissue, which could hide abnormalities. Dense breast tissue, in and of itself, is a relatively common condition. Therefore, this information is not provided to cause undue concern; rather, it is to raise your awareness and promote discussion with your health care provider regarding the presence of dense breast tissue in addition to other risk factors. Early detection of cancer is very important. We also understand recommendations regarding breast cancer screening are controversial. Please discuss with your primary care provider which strategy is best for you and whether a mammogram is right for you. Your imaging studies and report will be kept on file at [facility] as part of your permanent medical record and are available for your continuing care. Thank you for allowing us to help in meeting your health care needs. Sincerely, Dr. Jade Interpreting Radiologist [facility] (Normal over 40) [facility] SCREENING Observed: 09/02/2018 Status: F Source: [place] 9:44 AM [facility] REPOSITORY * * *Final Report* * * DATE OF EXAM: Sep 02 2018 9:44AM [facility] 0581 - [facility] SCREENING / PROCEDURE REASON: Visit for screening mammogram * * * * Physician Interpretation * * * * RESULT: #[id number] - [facility] SCREENING BILATERAL DIGITAL SCREENING MAMMOGRAM WITH CAD: 09/02/2018 HISTORY: Screening Mammogram - patient reports NO breast symptoms /priors available for comparison. RESULT: TECHNIQUE: The study was acquired using full field digital technology and interpreted from soft copy. Current study was also evaluated with a Computer Aided Detection (CAD). Comparison is made to exams dated: 08/25/2017 mammogram, 08/02/2013 mammogram - [facility], 02/09/2011 mammogram, and 09/19/2008 mammogram. The tissue of both breasts is heterogeneously dense. This may lower the sensitivity of mammography. There are benign calcifications in the left breast. No significant masses, calcifications, or other findings are seen in either breast. There has been no significant interval change. IMPRESSION: There is no mammographic evidence of malignancy. A 1 year screening mammogram is recommended. Vern Jade M.D. pt/colette:09/02/2018 10:31:42 Director Of Conservation(s): Carolynn Cochran RT(R)(M), [facility] letter sent: Normal over 40 Mammogram BI-RADS: 2 Benign finding Multiple national specialty organizations have released breast cancer screening guidelines for women at average risk for developing breast cancer - guidelines that are based on both evidence and opinion, yet differ on when to start and how often to screen for breast cancer. With representation from Breast Imaging, Internal Medicine, Women's Health, Family Medicine, and Medical/Surgical Oncology, the [facility] has carefully reviewed the data and reached the following consensus: 1) All women should engage in shared decision-making with their providers to decide when to start and how often to screen; 2) All women should have the opportunity to start screening mammography at age 40; 3) For women ages 45-55, we recommend annual screening mammograms; 4) For women ages 55 and over, we support both the transition from an annual to a biennial interval if this aligns more with patient's values and preferences, or continuation with annual screening; 5) All women should discuss with their providers when to stop screening mammograms. 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: Colette Transcribe Date/Time: Sep 02 2018 9:25A Dictated by: VERN JADE MD This examination was interpreted and the report reviewed and electronically signed by: VERN JADE MD on Sep 02 2018 10:31AM EST [id number] PROGRESS Observed: 09/02/2018 Status: COMPLETED Source: [place] 9:23 AM [facility] REPOSITORY HNO ID: [id number] Author: Sherron Ray Service: (none) Author Type: (none) Type: Progress Notes Filed: 09/02/2018 9:24 AM Note Text: Radiology Service Progress Note PATIENT NAME: Ramona Villegas DATE OF SERVICE: September 02, 2018 TIME: 9:23 AM PATIENT IDENTITY VERIFICATION COMPLETED USING TWO (2) METHODS: Patient confirmed name verbally and Date of . PATIENT GENDER DATA: Female. status: : No status: NO. PATIENT RELEVANT IMPLANT DATA REVIEWED: Not Applicable RADIOLOGY DEPARTMENT: [facility] PERIPHERAL IV DATA: Not applicable SIGNED BY: Sherron Ray September 02, 2018 9:23 AM PROGRESS Observed: 09/02/2018 Status: COMPLETED Source: [place] 9:22 AM [facility] REPOSITORY HNO ID: [id number] Author: Veronica Slade Service: (none) Author Type: County Manager Type: Progress Notes Filed: 09/02/2018 9:22 AM Note Text: Radiology Service Progress Note PATIENT NAME: Ramona Villegas DATE OF SERVICE: September 02, 2018 TIME: 9:22 AM PATIENT IDENTITY VERIFICATION COMPLETED USING TWO (2) METHODS: Patient confirmed name verbally and Date of . PATIENT GENDER DATA: Female. status: : No status: N/A PATIENT RELEVANT IMPLANT DATA REVIEWED: Not Applicable RADIOLOGY DEPARTMENT: Ultrasound PERIPHERAL IV DATA: Not applicable SIGNED BY: VERONICA SLADE RDMS Ankit September 02, 2018 9:22 AM US FEMALE PELVIS Observed: 09/02/2018 Status: F Source: [place] 9:21 AM [facility] REPOSITORY * * *Final Report* * * DATE OF EXAM: Sep 02 2018 9:21AM [facility] [id number] - US FEMALE PELVIS [employer]SNanole[employer] LTD / PROCEDURE REASON: multiple diagnoses * * * * Physician Interpretation * * * * EXAMINATION: TRANSVAGINAL AND LIMITED TRANSABDOMINAL PELVIC ULTRASOUND CLINICAL HISTORY: Postmenopausal bleeding TECHNIQUE: Sonography of the pelvis was performed by transvaginal and transabdominal (limited) techniques. Images were obtained and stored in a permanent archive. MQ: [id number] COMPARISON: None LIMITATIONS: Shadowing from bowel gas and patient body habitus RESULT: Uterus size: 8.4 x 7.0 x 4.8 cm -Orientation: Anteverted -Myometrium: Normal sonographic appearance. No focal masses -Endometrial echo complex: 9.5 mm transvaginally -Cervix: normal Right ovary: Not visualized. No adnexal masses. Left ovary: Not visualized. No adnexal masses Pelvis free fluid: None. IMPRESSION: No acute pelvic process. 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: [employer] Transcribe Date/Time: Sep 02 2018 12:25P Dictated by : TANNA RYAN MD This examination was interpreted and the report reviewed and electronically signed by: TANNA RYAN MD on Sep 02 2018 12:28PM EST [id number] US FEMALE PELVIS Observed: 09/02/2018 Status: F [facility] REPOSITORY * * *Final Report* * * DATE OF EXAM: Sep 02 2018 9:21AM WRU [id number] - US FEMALE PELVIS TRANSVAG / PROCEDURE REASON: multiple diagnoses * * * * Physician Interpretation * * * * EXAMINATION: TRANSVAGINAL AND LIMITED TRANSABDOMINAL PELVIC ULTRASOUND CLINICAL HISTORY: Postmenopausal bleeding TECHNIQUE: Sonography of the pelvis was performed by transvaginal and transabdominal (limited) techniques. Images were obtained and stored in a permanent archive. MQ: UFP_1 COMPARISON: None LIMITATIONS: Shadowing from bowel gas and patient body habitus RESULT: Uterus size: 8.4 x 7.0 x 4.8 cm -Orientation: Anteverted -Myometrium: Normal sonographic appearance. No focal masses -Endometrial echo complex: 9.5 mm transvaginally -Cervix: normal Right ovary: Not visualized. No adnexal masses. Left ovary: Not visualized. No adnexal masses Pelvis free fluid: None. IMPRESSION: No acute pelvic process. 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: [employer] Transcribe Date/Time: Sep 02 2018 12:25P Dictated by : TANNA RYAN MD This examination was interpreted and the report reviewed and electronically signed by: TANNA RYAN MD on Sep 02 2018 12:28PM EST [id number] PROGRESS Observed: 08/24/2018 Status: COMPLETED Source: [place] 6:54 AM [facility] REPOSITORY HNO ID: [id number] Author: Ted Monroe Service: (none) Author Type: Physician Type: Progress Notes Filed: 08/24/2018 7:01 AM Note Text: CC: Ramona Villegas is a 57 year old female who presents to the office for follow up HPI: HTN, has been well controlled, no concerns, denies any chest pains or dyspnea or dizziness/LH HPL, not on statin therapy, was trying to diet control Cholesterol, Total Date Value Ref Range Status 11/22/2017 247 (H) <200 mg/dL Final Comment: <200 mg/dL, Desirable 200-239 mg/dL, Borderline high >239 mg/dL, High HDL Cholesterol Date Value Ref Range Status 11/22/2017 51 >39 mg/dL Final Comment: 40-59 mg/dL, Acceptable >59 mg/dL, High: Negative risk factor for coronary heart disease <40 mg/dL, Low: Positive risk factor for coronary heart disease LDL Cholesterol Date Value Ref Range Status 11/22/2017 154 (H) <100 mg/dL Final Comment: <100 mg/dL, Optimal 100-129 mg/dL, Near optimal/above optimal 130-159 mg/dL, Borderline high 160-189 mg/dL, High >189 mg/dL, Very high Secondary prevention optimal LDL Cholesterol levels are recommended to be < 70 mg/dL Triglyceride Date Value Ref Range Status 11/22/2017 209 (H) <150 mg/dL Final Comment: <150 mg/dL, Normal 150-199 mg/dL, Borderline high 200-499 mg/dL, High >499 mg/dL, Very high Urinary urgency and frequency and pelvic pressure, mostly discomfort at area of urethra when urinating. symptoms x several months, thought improved with antibiotic given this summer and now present again, No fevers or chills or flank pain, no hx of kidney stones. Does admit to one day of bleeding vaginal that occurred 2 months ago, did not notify anyone in the office, bright red blood x 1 day, resolved. Did not get evaluated for this. No other symptoms. Right knee pain, started after a trip and fall that occurred in May, mostly right over the knee cap area medially by description, mostly with prolonged standing or walking up steps, no obvious swelling, area was bruised when tripped and fell going up steps and landed against knee cap area. No routine use of ice or heat or NSAIDs ZEYNEP, use of CPAP Anxiety, stable, use of Prozac as prescribed. No new changes PAST MEDICAL HISTORY Diagnosis Date - Anxiety - Arthritis - Hypercholesteraemia - Hypertension - ZEYNEP (obstructive sleep apnea) 11/15/2013 [facility] - Overweight(278.02) - Post-menopausal PAST SURGICAL HISTORY Procedure Laterality Date - COLONOSCOP W/ OR W/O [facility] SPEC 09/04/2013 Colonoscopy- 3 small polyps - COLONOSCOPY N/A 11/09/2016 Current Outpatient Prescriptions: conjugated estrogens (PREMARIN) vaginal cream 1 finger- tip sized application every other evening metoprolol succinate ER (TOPROL XL) 100 mg Tb24 TAKE 1 TABLET DAILY celecoxib (CELEBREX) 200 mg capsule TAKE 1 CAPSULE DAILY FLUoxetine (PROZAC) 20 mg capsule Take 1 capsule by mouth once daily. Hydrochlorothiazide 12.5 mg capsule Take 1 capsule by mouth once daily. ciprofloxacin HCl (CIPRO) 500 mg tablet Take 1 tablet by mouth twice daily for 10 days. Cholecalciferol, Vitamin D3, 5,000 unit cap Take 1 capsule by mouth once daily. CPAP Mask refitting when eligible, suitable mask per pt preference, chin strap, head gear, humidity, tubing, lifetime supplies. G47.33 Obstructive Sleep Apnea CPAP 1 Device daily at bedtime. Auto PAP with Settings 10- 20 cm H2O, suitable mask per pt preference, chin strap, head gear, humidity, tubing, lifetime supplies. G47.33 Obstructive Sleep Apnea. Current machine broken beyond repair. predniSONE (DELTASONE) 10 mg tablet Take 60mg x 3 days, 40mg x 3 days, 20mg x 3 days, 10mg x 3 days. Take with food. CPAP AutoPAP 10-20 cmH2O, suitable mask, humidity, filters, chin strap. Lifetime supplies. Dx: 327.23. compliance rpt to Dr. Miller in 6 wks. No current facility-administered medications for this visit. ALLERGIES No Known Allergies Social History Marital status: Single Spouse name: Years of education: Number of children: Social History Main Topics Smoking status: Never Smoker Smokeless tobacco: Never Used Alcohol use: Yes Comment: occasionally Drug use: No Social History Narrative Goes by Olesya SUSAN: See HPI PE: BP 136/86 Pulse 60 Temp (Src) 98 (Temporal Artery) Resp 20 Wt 254 lb (115.2kg) LMP 07/25/2015 Gen: AANDOX3, NAD, non-toxic appearing HEENT: PERRLA, EOMs intact b/l, nares without drainage, pharynx without erythema, exudate, lesions, or drainage. Uvula midline. Neck: No LAD, no thyromegaly, no meningismus. CV: RRR, no murmur Lungs: CTA b/l, no wheezing Skin: No rashes, lesions, or wounds on exposed skin. No edema, normal pulses Abd: obese, no CVA TTP, normal BS, no obvious masses Right knee with TTP over medial patella, otherwise normal exam, no swelling or skin color changes ASSESSMENT/PLAN: 1. Essential hypertension - ICD9: 401.9, ICD10: I10 (primary diagnosis) - good control - Continue current medication(s) - Encouraged dietary sodium restriction/DASH diet - Recommended regular aerobic exercise. - Recommend home blood pressure monitoring, to bring results in on next visit - Goal of BP <130/80 2. Visit for screening mammogram - ICD9: V76.12, ICD10: Z12.31 - Set up for mammogram, yearly mammogram recommended - Encouraged monthly BSE - JERALD SCREENING 3. Urethritis - ICD9: 597.80, ICD10: N34.2 - labs and Urine as ordered, chronic intermittent, needs to see Urologist for further work up - URINE CULTURE - URINALYSIS WITH MICROSCOPIC - CONSULT TO UROLOGY 4. Dysuria - ICD9: 788.1, ICD10: R30.0 - labs and Urine as ordered, chronic intermittent, needs to see Urologist for further work up - URINE CULTURE - URINALYSIS WITH MICROSCOPIC - CONSULT TO UROLOGY 5. Chronic pain of right knee - ICD9: 719.46, 338.29, ICD10: M25.561, G89.29 - xray as ordered, ice and NSAIDs as d/w her today - XR KNEE GENERAL 4V AP BOTH/PA BOTH/LAT/MERC RT 6. Injury of right knee, initial encounter - ICD9: 959.7, ICD10: S89.91XA - see above, occurred months ago - XR KNEE GENERAL 4V AP BOTH/PA BOTH/LAT/MERC RT 7. Vitamin D deficiency - ICD9: 268.9, ICD10: E55.9 - CHOLECALCIFEROL (VITAMIN D3) 5,000 UNIT CAPSULE 8. Postmenopausal symptoms - ICD9: 627.9, ICD10: N95.9 - she refuses pelvic examination today, US pelvis/uterus as ordered, 1 day of post menopausal bleeding several months ago - US FEMALE PELVIS TRANSABD LTD - US FEMALE PELVIS TRANSVAG 9. Post-menopausal bleeding - ICD9: 627.1, ICD10: N95.0 - she refuses pelvic examination today, US pelvis/uterus as ordered, 1 day of post menopausal bleeding several months ago - US FEMALE PELVIS TRANSABD LTD - US FEMALE PELVIS TRANSVAG 10. Fatigue, unspecified type - ICD9: 780.79, ICD10: R53.83 - labs as above 11. Hypercholesterolemia - ICD9: 272.0, ICD10: E78.00 - to be determined upon return of lab results - Encouraged following a low fat, low cholesterol diet. - Discussed the benefits of regular aerobic exercise and weight loss. 12. ZEYNEP (obstructive sleep apnea) - ICD9: 327.23, ICD10: G47.33 - continue CPAP 13. Anxiety - ICD9: 300.00, ICD10: F41.9 - continue Prozac Ted Monroe DO Return if no improvement. Follow up with Ted Monroe DO. Discussed risks, benefits, alternatives, and potential side effects of medications. Patient/Guardian expressed understanding and agreed with the plan. See patient instructions. Ted Monroe DO [address] [place] [address] URINALYSIS WITH Collected: 08/22/2018 Status: F Source: [facility] 3:51 PM [facility] REPOSITORY TYPE CODE TESTS RESULT OUT OF RANGE REFERENCE UNITS LAB UCOL Yellow Color Abnormal Aleisha Alert LAB [facility] Clear Clarity Clear LAB UGLUC Negative mg/dL Glucose, Urine Negative LAB UBIL Negative Bilirubin, Urine Negative LAB UKET Negative Ketones, Abnormal Urine Trace Alert LAB [facility] 1.005-1.030 Specific [place], Ur 1.025 LAB UHGB Negative Abnormal Hemoglobin/Blood, 1+ Alert Ur LAB UPH 4.5-8.0 pH 5.0 LAB UPROT Negative mg/dL Protein, Abnormal Urine 30 Alert LAB UUROB Normal Urobilinogen Normal LAB UNITR Negative Nitrites Abnormal Positive Alert LAB ULKEST Negative Leukest Negative LAB UCOM Comments SEE COMMENT Result Comment: N/A LAB [facility] Urine SEE Reinaldo Comment COMMENT Result Comment: Result rechecked. LAB UWBC 0-5 /HPF WBC 0-5 LAB URBC 0-3 /HPF Abnormal RBC Alert 11-25 LAB UEPI /HPF Epithelial Cells SEE COMMENT Result Comment: Few Squamous Epithelial Cells LAB UCRYS 0 /HPF Abnormal Alert Crystals SEE COMMENT Result Comment: Moderate Calcium Oxalate Crystal Performed By: #### UAWMIC #### [facility] [employer] [address] [place], [place] [address] Observed: 08/22/2018 Status: F Source: [place] URINE CULTURE 3:51 PM [facility] REPOSITORY Sp. Request/Comment: - Best Practice Alert: To ensure optimal transport conditions and accurate culture results transfer urine specimens to lemus top C and S preservative tube. Culture Result - 10,000 - <50,000 CFU/ml Normal urogenital sarah Performed By: #### URCUL #### [facility] [employer] [address] [place], [place] [address] XR KNEE 4V AP/PA Observed: 08/22/2018 Status: F Source: [place] BOTH+LAT/SEDRICK RT 10:29 AM [facility] REPOSITORY * * *Final Report* * * DATE OF EXAM: Aug 22 2018 10:29AM WOX [id number] - XR KNEE 4V AP/PA BOTH+LAT/SEDRICK RT / PROCEDURE REASON: multiple diagnoses * * * * Physician Interpretation * * * * EXAMINATION: XR KNEE 4V AP/PA BOTH+LAT/SEDRICK RT HISTORY: Pt. states Rt anterior knee pain for 1+ months after a fall. Chronic pain of right knee Chronic pain of right knee Injury of right knee, initial encounter . TECHNIQUE: XR KNEE 4V AP/PA BOTH+LAT/SEDRICK RT Laterality: RIGHT Number of different views (projections): 4 M: XB_1 COMPARISON: There are no prior knee studies for comparison RESULT: Standing frontal radiographs of the bilateral knees with bilateral PA flexion views, sunrise views and a lateral view the right knee show no acute osseous, articular or soft tissue process. Joint spaces are reasonably preserved and there is no abnormal joint fluid. Mild patellar spurring is noted bilaterally with preservation of the patellofemoral joint spaces.. IMPRESSION: No acute process. No significant degenerative change. Mild patellar spurring with preservation of the patellofemoral joint spaces. 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: [employer] Transcribe Date/Time: Aug 22 2018 11:12A Dictated by : TANNA RYAN MD This examination was interpreted and the report reviewed and electronically signed by: TANNA RYAN MD on Aug 22 2018 11:15AM EST [id number] PROGRESS Observed: 08/22/2018 Status: COMPLETED Source: [place] 10:17 AM [facility] REPOSITORY HNO ID: [id number] Author: Jr Beltran () Graciela De Dios Service: (none) Author Type: Form Setter Helper Type: Progress Notes Filed: 08/22/2018 10:30 AM Note Text: Radiology Service Progress Note PATIENT NAME: Ramona Villegas DATE OF SERVICE: August 22, 2018 TIME: 10:17 AM PATIENT IDENTITY VERIFICATION COMPLETED USING TWO (2) METHODS: Patient confirmed name verbally and Date of . PATIENT GENDER DATA: Female. status: : No status: NO. PATIENT RELEVANT IMPLANT DATA REVIEWED: Not Applicable RADIOLOGY DEPARTMENT: General X-ray: Exam(s) Completed: Lower Extremity X-Ray(s): Knee, AP / Lat / Tunne / Merchant Right and Wt. Bearing: PERIPHERAL IV DATA: Not applicable SIGNED BY: RT Humberto August 22, 2018 10:17 AM CNOV Observed: 08/22/2018 Status: COMPLETED Source: [place] 9:00 AM [facility] REPOSITORY Office Visit (FAMPWS) RAMONA VILLEGAS ([id number]) 1960 F Date Time Provider Department 08/22/18 9:00 AM JACKLYN TED Young BAINPWS During your visit today, we recorded the following information about you: Temperature Pulse Respiration Blood pressure 98 degrees 60/minute 20/minute 136/86 Weight 115.2 kg Ted Vidal Monroe, 08/22/2018 9:38 AM Addendum Hormone therapy - COMPUTER GAME TESTER UROLOGIST Berenice Mccabe MD [address] [place] [address] Ted Vidal Monroe, DO 08/24/2018 7:01 AM Signed CC: Ramona Villegas is a 57 year old female who presents to the office for follow up HPI: HTN, has been well controlled, no concerns, denies any chest pains or dyspnea or dizziness/LH HPL, not on statin therapy, was trying to diet control Cholesterol, Total Date Value Ref Range Status 11/22/2017 247 (H) <200 mg/dL Final Comment: <200 mg/dL, Desirable 200-239 mg/dL, Borderline high >239 mg/dL, High HDL Cholesterol Date Value Ref Range Status 11/22/2017 51 >39 mg/dL Final Comment: 40-59 mg/dL, Acceptable >59 mg/dL, High: Negative risk factor for coronary heart disease <40 mg/dL, Low: Positive risk factor for coronary heart disease LDL Cholesterol Date Value Ref Range Status 11/22/2017 154 (H) <100 mg/dL Final Comment: <100 mg/dL, Optimal 100-129 mg/dL, Near optimal/above optimal 130-159 mg/dL, Borderline high 160-189 mg/dL, High >189 mg/dL, Very high Secondary prevention optimal LDL Cholesterol levels are recommended to be < 70 mg/dL Triglyceride Date Value Ref Range Status 11/22/2017 209 (H) <150 mg/dL Final Comment: <150 mg/dL, Normal 150-199 mg/dL, Borderline high 200-499 mg/dL, High >499 mg/dL, Very high Urinary urgency and frequency and pelvic pressure, mostly discomfort at area of urethra when urinating. symptoms x several months, thought improved with antibiotic given this summer and now present again, No fevers or chills or flank pain, no hx of kidney stones. Does admit to one day of bleeding vaginal that occurred 2 months ago, did not notify anyone in the office, bright red blood x 1 day, resolved. Did not get evaluated for this. No other symptoms. Right knee pain, started after a trip and fall that occurred in May, mostly right over the knee cap area medially by description, mostly with prolonged standing or walking up steps, no obvious swelling, area was bruised when tripped and fell going up steps and landed against knee cap area. No routine use of ice or heat or NSAIDs ZEYNEP, use of CPAP Anxiety, stable, use of Prozac as prescribed. No new changes PAST MEDICAL HISTORY Diagnosis Date - Anxiety - Arthritis - Hypercholesteraemia - Hypertension - ZEYNEP (obstructive sleep apnea) 11/15/2013 [facility] - Overweight(278.02) - Post-menopausal PAST SURGICAL HISTORY Procedure Laterality Date - COLONOSCOP W/ OR W/O [facility] SPEC 09/04/2013 Colonoscopy- 3 small polyps - COLONOSCOPY N/A 11/09/2016 Current Outpatient Prescriptions: conjugated estrogens (PREMARIN) vaginal cream 1 finger- tip sized application every other evening metoprolol succinate ER (TOPROL XL) 100 mg Tb24 TAKE 1 TABLET DAILY celecoxib (CELEBREX) 200 mg capsule TAKE 1 CAPSULE DAILY FLUoxetine (PROZAC) 20 mg capsule Take 1 capsule by mouth once daily. Hydrochlorothiazide 12.5 mg capsule Take 1 capsule by mouth once daily. ciprofloxacin HCl (CIPRO) 500 mg tablet Take 1 tablet by mouth twice daily for 10 days. Cholecalciferol, Vitamin D3, 5,000 unit cap Take 1 capsule by mouth once daily. CPAP Mask refitting when eligible, suitable mask per pt preference, chin strap, head gear, humidity, tubing, lifetime supplies. G47.33 Obstructive Sleep Apnea CPAP 1 Device daily at bedtime. Auto PAP with Settings 10- 20 cm H2O, suitable mask per pt preference, chin strap, head gear, humidity, tubing, lifetime supplies. G47.33 Obstructive Sleep Apnea. Current machine broken beyond repair. predniSONE (DELTASONE) 10 mg tablet Take 60mg x 3 days, 40mg x 3 days, 20mg x 3 days, 10mg x 3 days. Take with food. CPAP AutoPAP 10-20 cmH2O, suitable mask, humidity, filters, chin strap. Lifetime supplies. Dx: 327.23. compliance rpt to Dr. Miller in 6 wks. No current facility-administered medications for this visit. ALLERGIES No Known Allergies Social History Marital status: Single Spouse name: Years of education: Number of children: Social History Main Topics Smoking status: Never Smoker Smokeless tobacco: Never Used Alcohol use: Yes Comment: occasionally Drug use: No Social History Narrative Goes by Olesya DAVIS: See HPI PE: BP 136/86 Pulse 60 Temp (Src) 98 (Temporal Artery) Resp 20 Wt 254 lb (115.2kg) LMP 07/25/2015 Gen: AANDOX3, NAD, non-toxic appearing HEENT: PERRLA, EOMs intact b/l, nares without drainage, pharynx without erythema, exudate, lesions, or drainage. Uvula midline. Neck: No LAD, no thyromegaly, no meningismus. CV: RRR, no murmur Lungs: CTA b/l, no wheezing Skin: No rashes, lesions, or wounds on exposed skin. No edema, normal pulses Abd: obese, no CVA TTP, normal BS, no obvious masses Right knee with TTP over medial patella, otherwise normal exam, no swelling or skin color changes ASSESSMENT/PLAN: 1. Essential hypertension - ICD9: 401.9, ICD10: I10 (primary diagnosis) - good control - Continue current medication(s) - Encouraged dietary sodium restriction/DASH diet - Recommended regular aerobic exercise. - Recommend home blood pressure monitoring, to bring results in on next visit - Goal of BP <130/80 2. Visit for screening mammogram - ICD9: V76.12, ICD10: Z12.31 - Set up for mammogram, yearly mammogram recommended - Encouraged monthly BSE - JERALD SCREENING 3. Urethritis - ICD9: 597.80, ICD10: N34.2 - labs and Urine as ordered, chronic intermittent, needs to see Urologist for further work up - URINE CULTURE - URINALYSIS WITH MICROSCOPIC - CONSULT TO UROLOGY 4. Dysuria - ICD9: 788.1, ICD10: R30.0 - labs and Urine as ordered, chronic intermittent, needs to see Urologist for further work up - URINE CULTURE - URINALYSIS WITH MICROSCOPIC - CONSULT TO UROLOGY 5. Chronic pain of right knee - ICD9: 719.46, 338.29, ICD10: M25.561, G89.29 - xray as ordered, ice and NSAIDs as d/w her today - XR KNEE GENERAL 4V AP BOTH/PA BOTH/LAT/MERC RT 6. Injury of right knee, initial encounter - ICD9: 959.7, ICD10: S89.91XA - see above, occurred months ago - XR KNEE GENERAL 4V AP BOTH/PA BOTH/LAT/MERC RT 7. Vitamin D deficiency - ICD9: 268.9, ICD10: E55.9 - CHOLECALCIFEROL (VITAMIN D3) 5,000 UNIT CAPSULE 8. Postmenopausal symptoms - ICD9: 627.9, ICD10: N95.9 - she refuses pelvic examination today, US pelvis/uterus as ordered, 1 day of post menopausal bleeding several months ago - US FEMALE PELVIS TRANSABD LTD - US FEMALE PELVIS TRANSVAG 9. Post-menopausal bleeding - ICD9: 627.1, ICD10: N95.0 - she refuses pelvic examination today, US pelvis/uterus as ordered, 1 day of post menopausal bleeding several months ago - US FEMALE PELVIS TRANSABD LTD - US FEMALE PELVIS TRANSVAG 10. Fatigue, unspecified type - ICD9: 780.79, ICD10: R53.83 - labs as above 11. Hypercholesterolemia - ICD9: 272.0, ICD10: E78.00 - to be determined upon return of lab results - Encouraged following a low fat, low cholesterol diet. - Discussed the benefits of regular aerobic exercise and weight loss. 12. ZEYNEP (obstructive sleep apnea) - ICD9: 327.23, ICD10: G47.33 - continue CPAP 13. Anxiety - ICD9: 300.00, ICD10: F41.9 - continue Prozac Ted Monroe DO Return if no improvement. Follow up with Ted Monroe DO. Discussed risks, benefits, alternatives, and potential side effects of medications. Patient/Guardian expressed understanding and agreed with the plan. See patient instructions. Ted Monroe DO [address] [place] [address] Referring Provider: SELF [200] Allergies As of Date: 08/22/2018 (No Known Allergies) Date Reviewed: 08/22/2018 Reviewed by: Tank Lucas LPN - Fully Assessed Reason for Visit: Follow Up [171] Primary Visit Diagnosis:Essential hypertension [I10] Other Visit Diagnoses:Visit for screening mammogram [Z12.31] Urethritis [N34.2] Dysuria [R30.0] Chronic pain of right knee [M25.561, G89.29] Injury of right knee, initial encounter [S89.91XA] Vitamin D deficiency [E55.9] Postmenopausal symptoms [N95.9] Post-menopausal bleeding [N95.0] Fatigue, unspecified type [R53.83] Hypercholesterolemia [E78.00] ZEYNEP (obstructive sleep apnea) [G47.33] Anxiety [F41.9] Order(s):JERALD SCREENING [[id number]] Order #: [id number] FUTURE conjugated estrogens (PREMARIN) vaginal cream1 finger- tip sized application every other eveningDisp: 3 TubeRfl: 3 URINE CULTURE [SQURCUL] Order #: [id number] FUTURE URINALYSIS WITH MICROSCOPIC [SQUAWMIC] Order #: [id number]. #:[id number] CONSULT TO UROLOGY [9097] Order #: [id number]: 1 XR KNEE GENERAL 4V AP BOTH/PA BOTH/LAT/MERC RT [[id number]] Order #: [id number] FUTURE Cholecalciferol, Vitamin D3, 5,000 unit capTake 1 capsule by mouth once daily.Disp: 90 capsuleRfl: 3 FEMALE PELVIS TRANSABD LTD [[id number]] Order #: [id number] FUTURE FEMALE PELVIS TRANSVAG [[id number]] Order #: [id number] FUTURE ciprofloxacin HCl (CIPRO) 500 mg tabletTake 1 tablet by mouth twice daily for 10 days.Disp: 20 tabletRfl: 0 Prescriptions as of 08/22/2018 Sig: CONJUGATED ESTROGENS 0.625 MG* 1 finger- tip sized applicati* METOPROLOL SUCCINATE ER 100 M* TAKE 1 TABLET DAILY CELECOXIB 200 MG CAPSULE TAKE 1 CAPSULE DAILY FLUOXETINE 20 MG CAPSULE Take 1 capsule by mouth once * HYDROCHLOROTHIAZIDE 12.5 MG C* Take 1 capsule by mouth once * CIPROFLOXACIN 500 MG TABLET Take 1 tablet by mouth twice * CHOLECALCIFEROL (VITAMIN D3) * Take 1 capsule by mouth once * CPAP Mask refitting when eligible,* CPAP 1 Device daily at bedtime. Au* PREDNISONE 10 MG TABLET Take 60mg x 3 days, 40mg x 3 * CPAP AutoPAP 10-20 cmH2O, suitable* Problem List As Of Date 08/22/2018 Noted Resolved Hypertension [I10] INVALID FOR* Anxiety [F41.9] INVALID FOR* ZEYNEP (obstructive sleep apnea) [G47.33] INVALID FOR* More... Obesity [E66.9] INVALID FOR* Hypersomnia [G47.10] INVALID FOR* Hypercholesterolemia [E78.00] INVALID FOR* Elevated serum creatinine [R79.89] INVALID FOR* Elevated fasting glucose [R73.01] INVALID FOR* Essential hypertension [I10] INVALID FOR* Urethritis [N34.2] INVALID FOR* Perimenopausal disorder [N95.9] INVALID FOR* Vitamin D deficiency [E55.9] INVALID FOR* Low vitamin B12 level [E53.8] INVALID FOR* Fatigue [R53.83] INVALID FOR* Other instructions from your clinician: Hormone therapy - COMPUTER GAME TESTER UROLOGIST Berenice Mccabe MD [address] [place] [address] Prescriptions ordered this encounter Disp Refills Start End CONJUGATED ESTROGENS 0.625 MG/GRAM V* 3 Tu* 3 08/22/2018 Si finger- tip sized application every other evening CHOLECALCIFEROL (VITAMIN D3) 5,000 U* 90 c* 3 08/22/2018 Route: ORAL Sig: Take 1 capsule by mouth once daily. CIPROFLOXACIN 500 MG TABLET 20 t* 0 08/23/2018 09/02/2018 Route: ORAL Sig: Take 1 tablet by mouth twice daily for 10 days. Medications Discontinued During This Encounter conjugated estrogens (PREMARIN) vagi* 1 Tu* 3 12/24/2017 08/22/2018 Si finger- tip sized application every other evening Disc: Reason for discontinue is not on file. cholecalciferol (VITAMIN D3) 2,000 u* 90 t* 3 11/26/2017 08/22/2018 Route: ORAL Sig: Take 1 tablet by mouth once daily. Disc: Reason for discontinue is not on file. Encounter Status:Closed by TED MONROE DO on 08/24/18 CNNURSE Observed: 08/13/2018 Status: COMPLETED Source: [facility] 8:40 AM [facility] REPOSITORY Nurse Visit (CORWST) RAMONA VILLEGAS ([id number]) 1960 F Date Time Provider Department 08/13/18 8:40 AM [facility] During your visit today, we recorded the following information about you: Chelo Avina CMA, J CARLOS 08/13/2018 8:46 AM Signed 57 year old female here for INACTIVATED INFLUENZA VACCINE. 3222-3191 Season Patient is identified by name and date of : Yes [] CONTRAINDICATIONS color enhanced section Age less than 6 months? No Allergy to eggs, chicken, chicken feathers, or chicken dander? No Allergy to thimerosal (a preservative) or formaldehyde, gelatin? No History of severe reaction to any vaccine component or a previous dose of influenza vaccination? No History of Guillain-[place] Syndrome within 6 weeks after a previous influenza vaccine? No Patient is not moderately or severely ill? No Current temperature greater or equal to 100.4F? No History of Bone Marrow Transplant prior 6 months or solid organ transplant in the past 3 months ? No History of fainting after a prior injection or medical procedure? No- ? If patient has fainted in the past, the CDC recommends sitting or lying down for 15 minutes after the vaccination. [] VERIFICATION color enhanced section Was the answer Yes for any of the above contraindications? No contraindications present. Acceptable to proceed with vaccine. Patient/guardian agrees the above answers are true to the best of their knowledge? Yes Flu vaccine information sheet given? Yes See immunization activity in [facility] for details of immunizations adminstered today. Patient age: [age] year old For The 8137-2808 Flu Season 6-35 months old: Fluzone 0.25 ml - IM (Preservative Free) 3 years of age: Fluzone 0.5 ml - IM (Preservative Free) 3 years and older: Fluzone 0.5 ml- IM-(with Preservatives) 65+ years old: 2-49 years old Fluzone High-Dose 0.5 ml - IM (Preservative Free) FLUMIST- intranasal REMEMBER: If patient is less than 9 years of age and this is the first vaccine of Influenza to be received in any flu season, they should receive a second dose in one months time. Referring Provider: SELF [200] Allergies As of Date: 08/13/2018 (No Known Allergies) Date Reviewed: 05/05/2018 Reviewed by: Jessie (Wafer Fab Operator) Amarjit - Fully Assessed Reason for Visit: Imm/Inj [58] Cmt: Flu Vaccine Primary Visit Diagnosis:Need for vaccination [Z23] Order(s):INFLUENZA VACCINE QUADRIVALENT AGE 3 YRS PLUS + IM [[id number]] Order #: [id number] Prescriptions as of 08/13/2018 Sig: METOPROLOL SUCCINATE ER 100 M* TAKE 1 TABLET DAILY CELECOXIB 200 MG CAPSULE TAKE 1 CAPSULE DAILY CPAP Mask refitting when eligible,* CPAP 1 Device daily at bedtime. Au* PREDNISONE 10 MG TABLET Take 60mg x 3 days, 40mg x 3 * FLUOXETINE 20 MG CAPSULE Take 1 capsule by mouth once * CONJUGATED ESTROGENS 0.625 MG* 1 finger- tip sized applicati* CHOLECALCIFEROL (VITAMIN D3) * Take 1 tablet by mouth once d* HYDROCHLOROTHIAZIDE 12.5 MG C* Take 1 capsule by mouth once * CPAP AutoPAP 10-20 cmH2O, suitable* Problem List As Of Date 08/13/2018 Noted Resolved Hypertension [I10] INVALID FOR* Anxiety [F41.9] INVALID FOR* ZEYNEP (obstructive sleep apnea) [G47.33] INVALID FOR* More... Obesity [E66.9] INVALID FOR* Hypersomnia [G47.10] INVALID FOR* Hypercholesterolemia [E78.00] INVALID FOR* Elevated serum creatinine [R79.89] INVALID FOR* Elevated fasting glucose [R73.01] INVALID FOR* Essential hypertension [I10] INVALID FOR* Urethritis [N34.2] INVALID FOR* Perimenopausal disorder [N95.9] INVALID FOR* Vitamin D deficiency [E55.9] INVALID FOR* Low vitamin B12 level [E53.8] INVALID FOR* Fatigue [R53.83] INVALID FOR* Encounter Status:Closed by CHELO AVINA CMA on 08/13/18 PROGRESS Observed: 08/09/2018 Status: COMPLETED Source: [place] 4:25 PM [facility] [place] REPOSITORY O ID: [id number] Author: Chelo Gillis) J CARLOS Avina Service: (none) Author Type: Work Station Support Specialist Type: Progress Notes Filed: 08/13/2018 8:46 AM Note Text: 57 year old female here for INACTIVATED INFLUENZA VACCINE. 3143-1403 Season Patient is identified by name and date of : Yes [] CONTRAINDICATIONS color enhanced section Age less than 6 months? No Allergy to eggs, chicken, chicken feathers, or chicken dander? No Allergy to thimerosal (a preservative) or formaldehyde, gelatin? No History of severe reaction to any vaccine component or a previous dose of influenza vaccination? No History of Guillain-[place] Syndrome within 6 weeks after a previous influenza vaccine? No Patient is not moderately or severely ill? No Current temperature greater or equal to 100.4F? No History of Bone Marrow Transplant prior 6 months or solid organ transplant in the past 3 months ? No History of fainting after a prior injection or medical procedure? No- ? If patient has fainted in the past, the CDC recommends sitting or lying down for 15 minutes after the vaccination. [] VERIFICATION color enhanced section Was the answer Yes for any of the above contraindications? No contraindications present. Acceptable to proceed with vaccine. Patient/guardian agrees the above answers are true to the best of their knowledge? Yes Flu vaccine information sheet given? Yes See immunization activity in [facility] for details of immunizations adminstered today. Patient age: [age] year old For The 1211-6304 Flu Season 6-35 months old: Fluzone 0.25 ml - IM (Preservative Free) 3 years of age: Fluzone 0.5 ml - IM (Preservative Free) 3 years and older: Fluzone 0.5 ml- IM-(with Preservatives) 65+ years old: 2-49 years old Fluzone High-Dose 0.5 ml - IM (Preservative Free) FLUMIST- intranasal REMEMBER: If patient is less than 9 years of age and this is the first vaccine of Influenza to be received in any flu season, they should receive a second dose in one months time. VITAMIN B6 PLASMA Collected: 08/06/2018 Status: F Source: [place] 11:10 AM [facility] REPOSITORY TYPE CODE TESTS RESULT OUT OF REFERENCE UNITS RANGE LAB VITB6 20.0-125.0 nmol/L Vitamin B6 40.7 Plasma Result Comment: (NOTE) INTERPRETIVE INFORMATION: Vitamin B6 (Pyridoxal 5-Phosphate) Pyridoxal 5'-phosphate measured in a specimen collected following an 8-hour or overnight fast accurately indicates vitamin B6 nutritional status. Non-fasting specimen concentration reflects recent vitamin intake. Test developed and characteristics determined by [facility]. See Compliance Statement B: [employer]/ Performed by [facility], [address] [place] [id number] [email or web address], Franck Chavarria MD, Lab. Director Performed By: #### VITB6 #### [facility] [address] [place] [phone] VITAMIN D 25 HYDROXY Collected: 08/03/2018 Status: F Source: [place] 3:23 PM [facility] REPOSITORY TYPE CODE TESTS RESULT OUT OF REFERENCE UNITS RANGE LAB VITD 31.0-80.0 ng/mL Low Vitamin D 25 21.2 Hydroxy Result Comment: Classification of 25 [place] Vitamin D status: Insufficiency/Moderate Deficiency: < or = 30 ng/mL Sufficiency/Optimal Levels: 31 to 80 ng/mL Toxicity: > 100 ng/mL Test performed by chemiluminescent immunoassay. Performed By: #### VITD, CBC, B12, PROG, TSH, FTESTO, MMA #### [place] [address] [place] [phone] #### VITB2 #### [address] [address] [phone] CBC Collected: 08/03/2018 Status: F Source: [place] 3:23 PM [facility] REPOSITORY TYPE CODE TESTS RESULT OUT OF REFERENCE UNITS RANGE LAB WBC 3.70-11.00 k/uL WBC 9.25 LAB RBC 3.90-5.20 m/uL RBC 4.69 LAB HGB 11.5-15.5 g/dL Hemoglobin 14.1 LAB HCT 36.0-46.0 % Hematocrit 41.2 LAB MCV 80.0-100.0 fL MCV 87.8 LAB MCH 26.0-34.0 pG MCH 30.1 LAB MCHC 30.5-36.0 g/dL MCHC 34.2 LAB RDWCV 11.5-15.0 % RDW-CV 12.8 LAB PLTCT 150-400 k/uL Platelet Count 182 LAB MPV 9.0-12.7 fL MPV 12.6 LAB ABSNUC <0.01 k/uL Absolute nRBC <0.01 Performed By: #### VITD, CBC, B12, PROG, TSH, FTESTO, MMA #### [place] [address] [place] [address] #### VITB2 #### [address] [phone] VITAMIN B12 Collected: 08/03/2018 Status: F Source: [place] 3:23 PM [facility] REPOSITORY TYPE CODE TESTS RESULT OUT OF REFERENCE UNITS RANGE LAB B12 232-1245 pg/mL Vitamin B12 344 Performed By: #### VITD, CBC, B12, PROG, TSH, FTESTO, MMA #### [place] [address] [place] [address] #### VITB2 #### [facility] [address] [place] [address] [phone] PROGESTERONE Collected: 08/03/2018 Status: F Source: [place] 3:23 PM [facility] REPOSITORY TYPE CODE TESTS RESULT OUT OF REFERENCE UNITS RANGE LAB PROG ng/mL Progesterone 0.3 Result Comment: Menstrual Cycle Progesterone Reference Ranges: Follicular:<1.0 ng/mL Ovulation:<12.1 ng/mL Luteal:1.8 to 23.9 ng/mL Progesterone Reference Ranges vary by gestational period: First Trimester:11.0 to 44.3 ng/mL Second Trimester:25.4 to >60.0 ng/mL Third Trimester:58.7 to >60.0 ng/mL Post menopausal Progesterone:<0.5 ng/mL Reference: 1. Progesterone (Progesterone III) [package insert V 1.0 [place]]. [employer], [place], [place]. July 2015. Performed By: #### VITD, CBC, B12, PROG, TSH, FTESTO, MMA #### [facility] [address] [place] [phone] #### VITB2 #### [address] [address] [phone] TSH Collected: 08/03/2018 Status: F Source: [place] 3: [facility] REPOSITORY TYPE CODE TESTS RESULT OUT OF RANGE REFERENCE UNITS LAB TSH 0.400-5.500 uU/mL TSH 1.400 Performed By: #### VITD, CBC, B12, PROG, TSH, FTESTO, MMA #### [place] [address] [place] [phone] #### VITB2 #### [facility] [address] [place] [address] [phone] FREE TESTOSTERONE Collected: 08/03/2018 Status: F Source: [place] 3:23 PM [facility] REPOSITORY TYPE CODE TESTS RESULT OUT OF REFERENCE UNITS RANGE LAB TESTO <40 ng/dL Testosterone 33 LAB FREE 0.8-2.3 % Free High Testosterone % 2.7 LAB FRTSTO 1.8-10.4 pg/mL Free Testosterone 9.0 Result Comment: This test was developed and its performance characteristics determined by [facility] ([facility]). It has not been cleared or approved by the FDA. [facility] is regulated under CLIA as qualified to perform high-complexity testing. This test is used for clinical purposes. It should not be regarded as investigational or for research. Performed By: #### VITD, CBC, B12, PROG, TSH, FTESTO, MMA #### [facility] [address] [place] [phone] #### VITB2 #### [address] [address] [phone] METHYLMALONIC ACID Collected: 08/03/2018 Status: F Source: [place] 3:23 PM [facility] REPOSITORY TYPE CODE TESTS RESULT OUT OF REFERENCE UNITS RANGE LAB MMA 79-376 nmol/L Methylmalonic High Acid 874 Result Comment: This test was developed and its performance characteristics determined by [facility] ([facility]). It has not been cleared or approved by the FDA. [facility] is regulated under CLIA as qualified to perform high-complexity testing. This test is used for clinical purposes. It should not be regarded as investigational or for research. Performed By: #### VITD, CBC, B12, PROG, TSH, FTESTO, MMA #### [place] [address] [place] [address] #### VITB2 #### [facility] [address] [address] [phone] VITAMIN B2 Collected: 08/03/2018 Status: F Source: [place] 3:23 PM [facility] REPOSITORY TYPE CODE TESTS RESULT OUT OF REFERENCE UNITS RANGE LAB VITB2 5-50 nmol/L Vitamin B2 6 Result Comment: (NOTE) INTERPRETIVE INFORMATION: Vitamin B2, Plasma Test developed and characteristics determined by [facility]. See Compliance Statement B: [employer]/[facility] Performed by [facility], [address] [place] [address] [phone] [email or web address], Franck Chavarria MD, Lab. Director Performed By: #### VITD, CBC, B12, PROG, TSH, FTESTO, MMA #### [facility] [address] [place], [place] [address] #### VITB2 #### [facility] [address] [place] [address] [phone] URGENT CARE VISIT Observed: 06/03/2018 Status: F Source: [place] 5:23 PM [facility] REPOSITORY [facility] [address] [place] [address] [address] [place] [address] OFFICE VISIT Date of Service: 06/03/18 MR#: [id number] Acct: [id number] Name: RAMONA VILLEGAS Rep #: [id number] : 1960 Provider: Mendel CONLEY Age/Sex: 57/F Location: [email or web address] Status: Signed Intake Vital Signs06/03/18 Height 5 ft 6 in Intake Visit Reasons: ED follow up Allergies No Known Allergies Allergy (Verified 06/03/18 16:54) Medications Celecoxib [Celebrex] 200 mg PO DAILY 10/10/13 [History Confirmed 06/03/18] Hydrochlorothiazide [Hydrochlorothiazide] 12.5 mg PO DAILY 05/29/18 [History Confirmed 06/03/18] Metoprolol Succinate [Toprol Xl] 100 mg PO DAILY 05/29/18 [History Confirmed 06/03/18] cholecalciferol (vitamin D3) 2,000 unit tablet PO 90 Days #90 06/03/18 [History Confirmed 06/03/18] PFSH Medical History Arthritis (Acute) Back pain (Acute) Fatigue (Acute) Migraines (Acute) HTN (hypertension) (Chronic) Social History Smoking Status: Never smoker HPI HPI Details: RAMONA VILLEGAS, is a 57 F who presents to the office today for follow-up of a work-related injury which occurred on 05/27/2018. On that date the patient was seen at [facility] ED after falling up a set of stairs and hitting her head on a door. She was diagnosed with a closed head injury. Patient states that her headaches have improved and are nearly completely remedied with Tylenol. She denies any loss of consciousness, syncopal/near syncopal episodes or vision change. She denies any neck pain or stiffness or other associated symptoms. ROS Const Constitutional: No chills, fever(s), fatigue or abnormal sleep pattern Eyes Eyes: No blurry vision or change in vision Musc Musculoskeletal: No back pain, abnormal walking, numbness, stiffness or tingling Skin Skin: No wounds or lesions Neuro Neurology: No behavioral changes, confusion, abnormal walking, numbness or tingling Psych Psychiatric: No behavioral changes, No confusion, No abnormal sleep pattern Endo Endocrine: No fatigue Exam Const General: cooperative, healthy appearing Eyes General: appearance normal, both eyes and all related structures Visual Murphy: normal visual murphy by confrontation Alignment and Position: alignment normal Eyelids: eyelids normal Conjunctivae: conjunctivae normal Pupils: PERRL EOM: EOM intact bilaterally Neck Neck: normal visual inspection, full ROM Skin General: no rashes or lesions noted Neuro General: alert, CN's II-XI intact bilaterally Cognition: normal cognition Speech: speech normal Gait: normal gait Motor: muscle tone normal throughout Sensory Exam: no sensory deficits noted Psych Appearance: grossly normal Mental Status: mental status grossly normal Assessment AND Plan Problems 1. Injury of head, initial encounter S09.90XA Status Acute Plan [employer] 14 filled out releasing patient back to work today without restrictions. Advised to continue with Tylenol as needed for headaches. Advised of potential red flags and when appropriate report to the ED. Advised she no longer needs to follow-up with this office unless she should have an exacerbation of symptoms or new concerns. Coding Level of Care Code Off vis,new,level 3 Diagnoses Injury of head, initial encounter S09.90XA Encounter type: initial encounter 06/03/18 1723 <Electronically signed by Mendel CONLEY> Date Mendel Graciaigner Signature: Date (if applicable) CC: DISCHARGE INSTRUCTION Observed: 05/29/2018 Status: F Source: [place] 7:14 PM [facility] REPOSITORY [facility] Medical Records Department [address] [place] [address] Discharge Instruction 05/29/181912 MR#: [id number] Acct: [id number] Name: RAMONA VILLEGAS Rep #: [id number] : 1960 57 From: Luis Olvera MD PCP: Ted Hinkle DO Status: REG ER ED Disposition - Plan for ED Patient: Chief Complaint: Head Injury Instructions: ED Head Injury Closed, ED Concussion Referrals: Ted Monroe DO [Primary Care Provider] - What to do if you have Problems For any increased pain, shortness of breath, bleeding, nausea or vomiting, chest pain, or any unexpected problems, contact your Primary Care Provider. Call [facility] ([phone]) or report to the closest Emergency Room. Call 911 if necessary. 05/29/181913 <Electronically signed by Luis Olvera MD> Date Luis Olvera MD Cosigner Signature (If Indicated): Date CC: Ted Hinkle DO EMERGENCY DEPARTMENT Observed: 05/29/2018 Status: F Source: [place] 7:13 PM [facility] REPOSITORY [facility] Medical Records Department [address] [place] [address] Emergency Department Summary 05/29/181910 MR#: [id number] Acct: [id number] Name: RAMONA VILLEGAS Rep #: [id number] : 1960 57 From: Luis Olvera MD PCP: Ted Hinkle DO Status: REG ER - ER Visit Summary Date of Service: 05/29/18 Chief Complaint: Head injury History of Present Illness: The patient is a 57 F who presents with a headache. She had a head injury 2 days ago. She slipped while walking up steps and hit her head into a door. She notes that this broke the door. There was no loss of consciousness. No amnesia. Since that time she complains of increased headache and blurry vision. She currently rates her pain a 7 out of 10. It is aching in nature. No vomiting. She is not anticoagulated. She became more concerned due to her worsening symptoms and returned requesting imaging. Physical Examination: Afebrile blood pressure 174/96 vitals otherwise normal No neck tenderness Heart regular rate and rhythm Lungs are clear Active full range of motion 4 Alert and oriented with a GCS of 15 no focal or lateralizing neurological deficits Test Results: CT the head is normal Emergency Department Course and Treatment: I explained the patient that my clinical suspicion for skull fracture or intracranial hemorrhage is very low. I did advise that her symptoms are consistent with a concussion. She is requesting CT imaging. We did discuss risks and benefits of obtaining imaging including radiation exposure risk. She wishes to proceed. CT of the head is normal. She was advised on supportive care. She was instructed on signs and symptoms to monitor for, conditions under which to return to the emergency department. She discharged home in good condition. Treatment Plan: [] Disposition: Discharge Impression: Closed head injury with concussion This note was generated with [employer] dictation software. It may contain incorrect words, spelling, and punctuation that were not noted in review of the chart prior to signing ED Disposition - Plan for ED Patient: Chief Complaint: Head Injury Referrals: Ted Monroe, DO [Primary Care Provider] - What to do if you have Problems For any increased pain, shortness of breath, bleeding, nausea or vomiting, chest pain, or any unexpected problems, contact your Primary Care Provider. Call [facility] ([phone]) or report to the closest Emergency Room. Call 911 if necessary. 05/29/181912 <Electronically signed by Luis Olvera MD> Date Luis Olvera MD Cosigner Signature (If Indicated): Date CC: Ted Hinkle DO BRAIN/HEAD WITHOUT Observed: 05/29/2018 Status: F Source: [place] CONTR[place] 6:03 PM [facility] REPOSITORY [facility] Imaging Services [address] [place] [address] Brain/Head without Contrast MR#: [id number] Acct: [id number] Name: RAMONA VILLEGAS Rep #: [id number] : 1960 F 57 From: Maryse Anderson MD PCP: Ted Hinkle DO Status: REG ER Study: Brain/Head without Contrast Date of Exam: 05/29/18 Exam# [id number] Ordering Dr: Luis Olvera MD STUDY: CT BRAIN WITHOUT CONTRAST REASON FOR EXAM: Female, 57 years old. Concussion. RADIATION DOSAGE (If Supplied By Facility): CTDIvol = ( 44.99 ) mGy, DLP = ( 745.49 ) mGycm TECHNIQUE: Transaxial CT imaging of the brain was performed without administration of intravenous contrast material. Individualized dose optimization techniques were used for this CT. COMPARISON: None. FINDINGS: Normal soft tissue structures. Normal calvarium. Normal size ventricles and extra-axial spaces for the patient's age. Normal white matter tracts of the cerebral hemispheres. Normal basal ganglia and thalami. Normal brainstem. Normal cerebellum. There is no intracranial hemorrhage. There are no findings of an acute ischemic infarction. Normal visualized paranasal sinuses. CT/Brain/Head without Contrast IMPRESSION: Normal unenhanced CT scan of the brain. Electronically Signed: Maryse Anderson MD at 18:59 EDT Tel , Service support , CC: Ted Hinkle DO; Luis Olvera MD 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: Signed EMERGENCY DEPARTMENT Observed: 05/27/2018 Status: F Source: [place] 4:35 PM [facility] REPOSITORY [facility] Medical Records Department [address] [place] [address] Emergency Department Summary 05/27/18 1007 MR#: [id number] Acct: [id number] Name: RAMONA VILLEGAS Rep #: [id number] : 1960 57 From: Shar Genao MD PCP: Ted Hinkle DO Status: DEP ER - ER Visit Summary Date of Service: 05/27/18 Chief Complaint: Fall and closed head injury History of Present Illness: The patient is a 57 F walking up steps at work tripped and fell forward nor glass door striking with her head. She denies any LOC. She is not on blood thinners. She denies other injuries. She denies any significant headache or neck pain. Work wanted her to be checked out. Physical Examination: Well-appearing middle-aged female. Vital signs are stable afebrile. HEENT exam pupils round reactive light. Extra motions are intact. No facial trauma. There is no hematoma or laceration to her scalp. It is not tender. She struck it on the left top part of her head and there is no signs of trauma. C-spine nontender normal range of motion. Trachea midline. Lungs clear to auscultation bilaterally. Chest wall nontender. Heart regular rate and rhythm no murmur. Abdomen soft nontender normal bowel sounds. No peritoneal signs. Pelvic girdle intact. She is moving all 4 extremities. They are neurovascularly intact. Nontender. Normal range of motion. Normal layout designer strength. Dorsi plantar flexion intact. Back is nontender. Spine is nontender. Neurologic exam is normal. GCS of 15. She can stand and ambulate without any difficulty. Fingertip to nose and heel bloom all within normal limits. Test Results: None patient meets no criteria at this time to need any type of brain imaging. Emergency Department Course and Treatment: Head injury instructions. Treatment Plan: Discharge. Head injury instructions. Patient deferred any Tylenol or Motrin at this time. Disposition: Discharge Impression: Fall at work Closed head injury Worker's comp This note was generated with [employer] dictation software. It may contain incorrect words, spelling, and punctuation that were not noted in review of the chart prior to signing ED Disposition - Plan for ED Patient: Chief Complaint: Fall What to do if you have Problems For any increased pain, shortness of breath, bleeding, nausea or vomiting, chest pain, or any unexpected problems, contact your Primary Care Provider. Call [facility] ([phone]) or report to the closest Emergency Room. Call 911 if necessary. 05/27/181634 <Electronically signed by Shar Genao MD> Date Shar Genao MD Cosigner Signature (If Indicated): Date CC: Ted Hinkle DO DISCHARGE INSTRUCTION Observed: 05/27/2018 Status: F Source: [place] 4:35 PM [facility] RE[facility]ITORY [facility] Medical Records Department [address] [place] [address] Discharge Instruction 05/27/18 1010 MR#: [id number] Acct: [id number] Name: RAMONA VILLEGAS Rep #: [id number] : 1960 57 From: Shar Genao MD PCP: Ted Hinkle DO Status: [facility] ED Disposition - Plan for ED Patient: Disposition: Home or Assisted Living Chief Complaint: Fall Instructions: ED Mechanical Fall, ED Head Injury Closed Referrals: [facility] [GROUP OF PHYSICIANS] - Additional Instructions: Ice to all sore areas. Tylenol and Motrin for pain. Return if severe headache, vomiting or not acting herself. What to do if you have Problems For any increased pain, shortness of breath, bleeding, nausea or vomiting, chest pain, or any unexpected problems, contact your Primary Care Provider. Call [facility] ([phone]) or report to the closest Emergency Room. Call 911 if necessary. 05/27/18 1637 <Electronically signed by Shar Genao MD> Date Shar Garcia Signature (If Indicated): Date CC: Ted Hinkle DO PROGRESS Observed: 05/05/2018 Status: COMPLETED Source: [place] 3:51 PM [facility] REPOSITORY HNO ID: [id number] Author: Shelley Montgomery LPN Service: (none) Author Type: (none) Type: Progress Notes Filed: 05/05/2018 4:14 PM Note Text: will send recall letter to follow up in 1 year . CNOV Observed: 05/05/2018 Status: COMPLETED Source: [place] 3:00 PM [facility] REPOSITORY Office Visit ([place]) RAMONA VILLEGAS ([id number]) 1960 F Date Time Provider Department 05/05/18 3:00 PM JESSIE OCASIO (FIONA) DANYELLE During your visit today, we recorded the following information about you: Pulse Respiration Blood pressure 60/minute 16/minute 122/58 Jessie Ocasio APRN.CNP 05/05/2018 4:21 PM Addendum Reason for Today's [facility] Visit at [place]: JORDYN 03/02/18 Plan: - Will start Auto CPAP 10-20 cmH2O with a Full face mask. - I will have a prescription sent to a [place] (durable medical equipment) company [employer] who will be calling you in the next 1-2 weeks or so. Please call them directly or us if you do not hear from them in this time frame. - You should be eligible for new supplies approximately every 3-6 months, depending on your insurance coverage. - If your mask doesn't fit well, call the [place] company before 30 days are up to get a new mask without an additional charge. - Insurance requires regular usage and periodic office follow ups for PAP therapy, to continue to cover supplies. ? [facility] REQUIREMENTS: - Your insurance requires a [id number] follow up visit within a 31-90 day period after starting CPAP. - Your insurance requires compliance with CPAP, which is at least 4 hours per night for 70% of the time. This must be done over a 30 day period and must occur within the initial 31-90 day period after starting CPAP. - Your insurance also requires at least yearly follow ups to continue to pay for CPAP supplies. ? ? Follow up in 2 month(s). ? ? ? This visit occurred of a group-based Shared Medical Activity, which included brief education and facilitated group interaction principally to enhance the understanding of and compliance with PAP therapy. This education emphasizes the benefits to daily functioning (Reduced Sleepiness, Improved Energy, Reduced Fatigue, and Reduced Irritability) that may accrue to many patients, but especially emphasizes the importance of adverse cardiovascular and metabolic outcomes (Heart attacks, strokes, hypertension, and worsening diabetes) that compliance to PAP therapy is intended to forestall or delay. This activity is directed at problems pertinent to CPAP mask therapy, and includes DME providers who were also available for immediate contact and intervention. ? ? eJssie Ocasio CNP SLEEP APNEA Sleep apnea type : ZEYNEP, Treatment : PAP therapy DME: [facility] [place] PAP History: Uses AutoPAP for 7 nights per week. Current PAP settin-20 cm H2O. Difficulties with AutoPAP: None Objective PAP compliance data: 04/05/18 to 05/04/18 Compliance download: 98%% >=4 hours 90/95th percentile pressure: 12.5 Leaks 68.0, residual AHI 4.4 Mask type: Full face mask Mask issues: Air leak Uses chin strap: No Uses ramp function: Yes Uses humidity: Yes There is a perceived benefit by the patient: No daytime sleepiness, cannot sleep or function without therapy Observers report abolition of snoring and respiratory events with AutoPAP use. ALLERGIES No Known Allergies PAST MEDICAL HISTORY Diagnosis Date - Anxiety - Arthritis - Hypercholesteraemia - Hypertension - ZEYNEP (obstructive sleep apnea) 11/15/2013 [facility] for AutoPAP - Overweight(278.02) - Post-menopausal PAST SURGICAL HISTORY Procedure Laterality Date - COLONOSCOP W/ OR W/O [facility] SPEC 09/04/2013 Colonoscopy- 3 small polyps - COLONOSCOPY N/A 11/09/2016 ACTIVE PROBLEM LIST Hypertension Anxiety Zeynep (Obstructive Sleep Apnea) Obesity Hypersomnia Hypercholesterolemia Elevated Serum Creatinine Elevated Fasting Glucose Essential Hypertension Urethritis Perimenopausal Disorder Vitamin D Deficiency Low Vitamin B12 Level Fatigue ? Diagnostic Conclusions: Obstructive Sleep Apnea Other conditions targeted directly or indirectly by intervention: hypersomnia, HTN, HLD, anxiety and obesity ? Self-reports: Reports a leak that is not bothersome to use Doing well on therapy with nightly use and perceived benefits Shared with the group positive aspects of using PAP therapy Actions Taken Reviewed reasons for treating sleep apnea in group format Individual review of patient's ZEYNEP status and treatment regimen. Reviewed compliance report Reviewed mask liner, different options available Provided REMZZZ mask liner sample Reviewed other mask options- Air fit F 20 may be suitable Education materials provided ? Objective Data Compliance: Machine-downloaded PAP compliance data: see above Healthy appearing, good comprehension, normal gait, speech logical and goal directed Pleasant demeanor and attire appropriate to season ? Vital signs: BP 122/58 (BP Site: Right Arm, BP Position: Sitting, BP Cuff Size: Large Adult) Pulse 60 Resp 16 LMP 07/25/2015 Plan: - Continue Auto CPAP at 10-20 cmH2O. - Order sent for supplies and new mask when eligible - Remember to clean your mask and equipment regularly, as directed. - You should be eligible for new supplies approximately every 3-6 months, depending on your insurance coverage. Contact your Durable Medical Equipment (DME) company for new supplies as needed. Follow up in 1 year(s). This visit occurred of a group-based Shared Medical Activity, which included brief education and facilitated group interaction principally to enhance the understanding of and compliance with PAP therapy. This education emphasizes the benefits to daily functioning (Reduced Sleepiness, Improved Energy, Reduced Fatigue, and Reduced Irritability) that may accrue to many patients, but especially emphasizes the importance of adverse cardiovascular and metabolic outcomes (Heart attacks, strokes, hypertension, and worsening diabetes) that compliance to PAP therapy is intended to forestall or delay. This activity is directed at problems pertinent to CPAP mask therapy, and includes DME providers who were also available for immediate contact and intervention. Jessie Montgomery LPN 05/05/2018 4:14 PM Signed will send recall letter to follow up in 1 year . Jessie Ocasio APRN.FIONA 05/05/2018 4:25 PM Signed Addended by: JESSIE OCASIO on: 05/05/2018 04:25 PM Modules accepted: Orders Jessie Ocasio APRN.CNP 05/05/2018 4:26 PM Signed Addended by: JESSIE OCASIO on: 05/05/2018 04:26 PM Modules accepted: Orders, SmartSet Referring Provider: JESSIE OCASIO) [[id number]] Allergies As of Date: 05/05/2018 (No Known Allergies) Date Reviewed: 05/05/2018 Reviewed by: Jessie Barr) Amarjit - Fully Assessed Reason for Visit: Established Patient [175] Cmt: compliance follow up Primary Visit Diagnosis:ZEYNEP (obstructive sleep apnea) [G47.33] Other Visit Diagnosis:Essential hypertension [I10] Order(s):CPAPMask refitting when eligible, suitable mask per pt preference, chin strap, head gear, humidity, tubing, lifetime supplies. G47.33 Obstructive Sleep ApneaDisp: 1 DeviceRfl: 0 Prescriptions as of 05/05/2018 Sig: CPAP Mask refitting when eligible,* CPAP 1 Device daily at bedtime. Au* PREDNISONE 10 MG TABLET Take 60mg x 3 days, 40mg x 3 * FLUOXETINE 20 MG CAPSULE Take 1 capsule by mouth once * CONJUGATED ESTROGENS 0.625 MG* 1 finger- tip sized applicati* CHOLECALCIFEROL (VITAMIN D3) * Take 1 tablet by mouth once d* HYDROCHLOROTHIAZIDE 12.5 MG C* Take 1 capsule by mouth once * CELECOXIB 200 MG CAPSULE Take 1 capsule by mouth once * METOPROLOL SUCCINATE ER 100 M* Take 1 tablet by mouth once d* CPAP AutoPAP 10-20 cmH2O, suitable* Problem List As Of Date 05/05/2018 Noted Resolved Hypertension [I10] INVALID FOR* Anxiety [F41.9] INVALID FOR* ZEYNEP (obstructive sleep apnea) [G47.33] INVALID FOR* More... Obesity [E66.9] INVALID FOR* Hypersomnia [G47.10] INVALID FOR* Hypercholesterolemia [E78.00] INVALID FOR* Elevated serum creatinine [R79.89] INVALID FOR* Elevated fasting glucose [R73.01] INVALID FOR* Essential hypertension [I10] INVALID FOR* Urethritis [N34.2] INVALID FOR* Perimenopausal disorder [N95.9] INVALID FOR* Vitamin D deficiency [E55.9] INVALID FOR* Low vitamin B12 level [E53.8] INVALID FOR* Fatigue [R53.83] INVALID FOR* Prescriptions ordered this encounter Disp Refills Start End CPAP 1 De* 0 05/05/2018 Class: Print RX Sig: Mask refitting when eligible, suitable mask per pt preference, chin strap, head gear, humidity, tubing, lifetime supplies. G47.33 Obstructive Sleep Apnea Encounter Status:Closed by JESSIE OCASIO on 05/05/18 PROGRESS Observed: 05/05/2018 Status: COMPLETED Source: [place] 12:21 PM [facility] REPOSITORY HNO ID: [id number] Author: Jessie (Wafer Fab Operator) Amarjit Service: (none) Author Type: Nurse Practitioner Type: Progress Notes Filed: 05/05/2018 4:21 PM Note Text: Reason for Today's [facility] Clinic Visit at [place]: JORDYN 03/02/18 Plan: - Will start Auto CPAP 10-20 cmH2O with a Full face mask. - I will have a prescription sent to a [place] ([place] medical [employer]) company - [employer] who will be calling you in the next 1-2 weeks or so. Please call them directly or us if you do not hear from them in this time frame. - You should be eligible for new supplies approximately every 3-6 months, depending on your insurance coverage. - If your mask doesn't fit well, call the [employer] company before 30 days are up to get a new mask without an additional charge. - Insurance requires regular usage and periodic office follow ups for PAP therapy, to continue to cover supplies. ? CMS REQUIREMENTS: - Your insurance requires a [id number] follow up visit within a 31-90 day period after starting CPAP. - Your insurance requires compliance with CPAP, which is at least 4 hours per night for 70% of the time. This must be done over a 30 day period and must occur within the initial 31-90 day period after starting CPAP. - Your insurance also requires at least yearly follow ups to continue to pay for CPAP supplies. ? ? Follow up in 2 month(s). ? ? ? This visit occurred of a group-based Shared Medical Activity, which included brief education and facilitated group interaction principally to enhance the understanding of and compliance with PAP therapy. This education emphasizes the benefits to daily functioning (Reduced Sleepiness, Improved Energy, Reduced Fatigue, and Reduced Irritability) that may accrue to many patients, but especially emphasizes the importance of adverse cardiovascular and metabolic outcomes (Heart attacks, strokes, hypertension, and worsening diabetes) that compliance to PAP therapy is intended to forestall or delay. This activity is directed at problems pertinent to CPAP mask therapy, and includes DME providers who were also available for immediate contact and intervention. ? ? Jessie Ocasio CNP SLEEP APNEA Sleep apnea type : ZEYNEP, Treatment : PAP therapy DME: [facility] [place] PAP History: Uses AutoPAP for 7 nights per week. Current PAP settin-20 cm H2O. Difficulties with AutoPAP: None Objective PAP compliance data: 04/05/18 to 05/04/18 Compliance download: 98%% >=4 hours 90/95th percentile pressure: 12.5 Leaks 68.0, residual AHI 4.4 Mask type: Full face mask Mask issues: Air leak Uses chin strap: No Uses ramp function: Yes Uses humidity: Yes There is a perceived benefit by the patient: No daytime sleepiness, cannot sleep or function without therapy Observers report abolition of snoring and respiratory events with AutoPAP use. ALLERGIES No Known Allergies PAST MEDICAL HISTORY Diagnosis Date - Anxiety - Arthritis - Hypercholesteraemia - Hypertension - ZEYNEP (obstructive sleep apnea) 11/15/2013 [facility] for AutoPAP - Overweight(278.02) - Post-menopausal PAST SURGICAL HISTORY Procedure Laterality Date - COLONOSCOP W/ OR W/O [facility] SPEC 09/04/2013 Colonoscopy- 3 small polyps - COLONOSCOPY N/A 11/09/2016 ACTIVE PROBLEM LIST Hypertension Anxiety Zeynep (Obstructive Sleep Apnea) Obesity Hypersomnia Hypercholesterolemia Elevated Serum Creatinine Elevated Fasting Glucose Essential Hypertension Urethritis Perimenopausal Disorder Vitamin D Deficiency Low Vitamin B12 Level Fatigue ? Diagnostic Conclusions: Obstructive Sleep Apnea Other conditions targeted directly or indirectly by intervention: hypersomnia, HTN, HLD, anxiety and obesity ? Self-reports: Reports a leak that is not bothersome to use Doing well on therapy with nightly use and perceived benefits Shared with the group positive aspects of using PAP therapy Actions Taken Reviewed reasons for treating sleep apnea in group format Individual review of patient's ZEYNEP status and treatment regimen. Reviewed compliance report Reviewed mask liner, different options available Provided REMZZZ mask liner sample Reviewed other mask options- Air fit F 20 may be suitable Education materials provided ? Objective Data Compliance: Machine-downloaded PAP compliance data: see above Healthy appearing, good comprehension, normal gait, speech logical and goal directed Pleasant demeanor and attire appropriate to season ? Vital signs: BP 122/58 (BP Site: Right Arm, BP Position: Sitting, BP Cuff Size: Large Adult) Pulse 60 Resp 16 LMP 07/25/2015 Plan: - Continue Auto CPAP at 10-20 cmH2O. - Order sent for supplies and new mask when eligible - Remember to clean your mask and equipment regularly, as directed. - You should be eligible for new supplies approximately every 3-6 months, depending on your insurance coverage. Contact your Durable Medical Equipment (DME) company for new supplies as needed. Follow up in 1 year(s). This visit occurred of a group-based Shared Medical Activity, which included brief education and facilitated group interaction principally to enhance the understanding of and compliance with PAP therapy. This education emphasizes the benefits to daily functioning (Reduced Sleepiness, Improved Energy, Reduced Fatigue, and Reduced Irritability) that may accrue to many patients, but especially emphasizes the importance of adverse cardiovascular and metabolic outcomes (Heart attacks, strokes, hypertension, and worsening diabetes) that compliance to PAP therapy is intended to forestall or delay. This activity is directed at problems pertinent to CPAP mask therapy, and includes DME providers who were also available for immediate contact and intervention. Jessie Ocasio CNP PROGRESS Observed: 04/12/2018 Status: COMPLETED Source: [place] 9:42 AM [facility] REPOSITORY O ID: [id number] Author: Ted Monroe Service: (none) Author Type: Physician Type: Progress Notes Filed: 04/12/2018 9:46 AM Note Text: CC: Ramona Villegas is a 57 year old female who presents to the office for follow up. HPI: Fatigue, seems to be consistently severe, difficulty with feeling motivated to do much, doesn't feel depressed or anxious, no chest pains or dyspnea, but does often feel worn out. Hx of low normal vitamin B12, hx of vitamin d deficiency- taking a 2,000 IU supplement. No hx of cardiac disease in the past HPL, long standing Cholesterol, Total Date Value Ref Range Status 11/22/2017 247 (H) <200 mg/dL Final Comment: <200 mg/dL, Desirable 200-239 mg/dL, Borderline high >239 mg/dL, High HDL Cholesterol Date Value Ref Range Status 11/22/2017 51 >39 mg/dL Final Comment: 40-59 mg/dL, Acceptable >59 mg/dL, High: Negative risk factor for coronary heart disease <40 mg/dL, Low: Positive risk factor for coronary heart disease LDL Cholesterol Date Value Ref Range Status 11/22/2017 154 (H) <100 mg/dL Final Comment: <100 mg/dL, Optimal 100-129 mg/dL, Near optimal/above optimal 130-159 mg/dL, Borderline high 160-189 mg/dL, High >189 mg/dL, Very high Secondary prevention optimal LDL Cholesterol levels are recommended to be < 70 mg/dL Triglyceride Date Value Ref Range Status 11/22/2017 209 (H) <150 mg/dL Final Comment: <150 mg/dL, Normal 150-199 mg/dL, Borderline high 200-499 mg/dL, High >499 mg/dL, Very high ZEYNEP, wearing CPAP faithfully each night and for intermittent naps HTN, well controlled, taking medications as prescribed urethritis, use of estrogen, estrogen deficiency post menopausal, intermittent discomfort, no other symptoms PAST MEDICAL HISTORY Diagnosis Date - Anxiety - Arthritis - Hypercholesteraemia - Hypertension - ZEYNEP (obstructive sleep apnea) 11/15/2013 on CPAP - Overweight(278.02) - Post-menopausal PAST SURGICAL HISTORY Procedure Laterality Date - COLONOSCOP W/ OR W/O [facility] SPEC 09/04/2013 Colonoscopy- 3 small polyps - COLONOSCOPY N/A 11/09/2016 Current Outpatient Prescriptions: FLUoxetine (PROZAC) 20 mg capsule Take 1 capsule by mouth once daily. conjugated estrogens (PREMARIN) vaginal cream 1 finger- tip sized application every other evening cholecalciferol (VITAMIN D3) 2,000 unit tablet Take 1 tablet by mouth once daily. Hydrochlorothiazide 12.5 mg capsule Take 1 capsule by mouth once daily. celecoxib (CELEBREX) 200 mg capsule Take 1 capsule by mouth once daily. metoprolol succinate ER (TOPROL XL) 100 mg Tb24 Take 1 tablet by mouth once daily. CPAP AutoPAP 10-20 cmH2O, suitable mask, humidity, filters, chin strap. Lifetime supplies. Dx: 327.23. compliance rpt to Dr. Miller in 6 wks. nitrofurantoin monohydrate and macrocrystal (MACROBID) 100 mg capsule Take 1 capsule by mouth twice daily with meals for 5 days. CPAP 1 Device daily at bedtime. Auto PAP with Settings 10- 20 cm H2O, suitable mask per pt preference, chin strap, head gear, humidity, tubing, lifetime supplies. G47.33 Obstructive Sleep Apnea. Current machine broken beyond repair. predniSONE (DELTASONE) 10 mg tablet Take 60mg x 3 days, 40mg x 3 days, 20mg x 3 days, 10mg x 3 days. Take with food. No current facility-administered medications for this visit. ALLERGIES No Known Allergies Social History Marital status: Single Spouse name: Years of education: Number of children: Social History Main Topics Smoking status: Never Smoker Smokeless tobacco: Never Used Alcohol use: Yes Comment: occasionally Drug use: No Social History Narrative Goes by Olesya ROS: See HPI PE: BP 130/80 Pulse 60 Temp (Src) 98.2 (Left Tympanic) Resp 16 Wt 248 lb (112.5kg) LMP 07/25/2015 Gen: AANDOX3, NAD, non-toxic appearing HEENT: PERRLA, EOMs intact b/l, wearing glasses, nares without drainage, pharynx without erythema, exudate, lesions, or drainage. Uvula midline. Neck: No LAD, no thyromegaly, no meningismus. CV: RRR, no murmur, normal s1s2 Lungs: CTA b/l, no wheezing Skin: No rashes, lesions, or wounds on exposed skin. Trace leg edema ASSESSMENT/PLAN: 1. Fatigue, unspecified type - ICD9: 780.79, ICD10: R53.83 (primary diagnosis) - labs as below, continue CPAP, if not improved then would recommend stress testing and echo due to concerns for possibility of cardiac related symptoms with HTN and HPL as well. - VITAMIN D 25 HYDROXY - VITAMIN B12 BLOOD - VITAMIN B6/PYRIDOXIN - VITAMIN B2/RIBOFLAV - METHYLMALONIC ACID - CBC - TSH BLD 2. Low vitamin B12 level - ICD9: 266.2, ICD10: E53.8 - recheck labs as ordered - VITAMIN B12 BLOOD - VITAMIN B6/PYRIDOXIN - VITAMIN B2/RIBOFLAV - METHYLMALONIC ACID 3. Vitamin D deficiency - ICD9: 268.9, ICD10: E55.9 - restart supplement, recheck labs - VITAMIN D 25 HYDROXY 4. Perimenopausal disorder - ICD9: 627.9, ICD10: N95.9 - recheck labs, okay for prn Macrobid - PROGESTERONE BLD - TESTOSTERONE, FREE AND TOTAL - NITROFURANTOIN MONOHYDRATE AND MACROCRYSTAL 100 MG ORAL CAP 5. Urethritis - ICD9: 597.80, ICD10: N34.2 - see above, f/u in office prn, continue topical estrogen - NITROFURANTOIN MONOHYDRATE AND MACROCRYSTAL 100 MG ORAL CAP 6. Hypercholesterolemia - ICD9: 272.0, ICD10: E78.00 - suboptimal control - Encouraged following a low fat, low cholesterol diet. - Discussed the benefits of regular aerobic exercise and weight loss. 7. Essential hypertension - ICD9: 401.9, ICD10: I10 - good control - Continue current medication(s) - Encouraged dietary sodium restriction/DASH diet - Recommended regular aerobic exercise. - Recommend home blood pressure monitoring, to bring results in on next visit - Goal of BP <130/80 8. ZEYNEP (obstructive sleep apnea) - ICD9: 327.23, ICD10: G47.33 - continue CPAP 9. Anxiety - ICD9: 300.00, ICD10: F41.9 - stable on Prozac, no new symptoms Ted Monroe DO Return if no improvement. Follow up with Ted Monroe DO. To ER if develops chest pain, shortness of breath, Discussed risks, benefits, alternatives, and potential side effects of medications. Patient/Guardian expressed understanding and agreed with the plan. See patient instructions. Ted Monroe DO [address] [place] [address] CNOV Observed: 04/12/2018 Status: COMPLETED Source: [place] 9:00 AM [facility] REPOSITORY [facility] RAM[facility] VIL[facility] ([id number]) 1960 F Date Time Provider Department 04/12/18 9:00 AM [facility] During your visit today, we recorded the following information about you: Temperature Pulse Respiration Blood pressure 98.2 degrees 60/minute 16/minute 130/80 Weight 112.5 kg Ted Monroe DO 04/12/2018 9:46 AM Signed CC: Ramona Villegas is a 57 year old female who presents to the office for follow up. HPI: Fatigue, seems to be consistently severe, difficulty with feeling motivated to do much, doesn't feel depressed or anxious, no chest pains or dyspnea, but does often feel worn out. Hx of low normal vitamin B12, hx of vitamin d deficiency- taking a 2,000 IU supplement. No hx of cardiac disease in the past HPL, long standing Cholesterol, Total Date Value Ref Range Status 11/22/2017 247 (H) <200 mg/dL Final Comment: <200 mg/dL, Desirable 200-239 mg/dL, Borderline high >239 mg/dL, High HDL Cholesterol Date Value Ref Range Status 11/22/2017 51 >39 mg/dL Final Comment: 40-59 mg/dL, Acceptable >59 mg/dL, High: Negative risk factor for coronary heart disease <40 mg/dL, Low: Positive risk factor for coronary heart disease LDL Cholesterol Date Value Ref Range Status 11/22/2017 154 (H) <100 mg/dL Final Comment: <100 mg/dL, Optimal 100-129 mg/dL, Near optimal/above optimal 130-159 mg/dL, Borderline high 160-189 mg/dL, High >189 mg/dL, Very high Secondary prevention optimal LDL Cholesterol levels are recommended to be < 70 mg/dL Triglyceride Date Value Ref Range Status 11/22/2017 209 (H) <150 mg/dL Final Comment: <150 mg/dL, Normal 150-199 mg/dL, Borderline high 200-499 mg/dL, High >499 mg/dL, Very high ZEYNEP, wearing CPAP faithfully each night and for intermittent naps HTN, well controlled, taking medications as prescribed urethritis, use of estrogen, estrogen deficiency post menopausal, intermittent discomfort, no other symptoms PAST MEDICAL HISTORY Diagnosis Date - Anxiety - Arthritis - Hypercholesteraemia - Hypertension - ZEYNEP (obstructive sleep apnea) 11/15/2013 on CPAP - Overweight(278.02) - Post-menopausal PAST SURGICAL HISTORY Procedure Laterality Date - COLONOSCOP W/ OR W/O [facility] SPEC 09/04/2013 Colonoscopy- 3 small polyps - COLONOSCOPY N/A 11/09/2016 Current Outpatient Prescriptions: FLUoxetine (PROZAC) 20 mg capsule Take 1 capsule by mouth once daily. conjugated estrogens (PREMARIN) vaginal cream 1 finger- tip sized application every other evening cholecalciferol (VITAMIN D3) 2,000 unit tablet Take 1 tablet by mouth once daily. Hydrochlorothiazide 12.5 mg capsule Take 1 capsule by mouth once daily. celecoxib (CELEBREX) 200 mg capsule Take 1 capsule by mouth once daily. metoprolol succinate ER (TOPROL XL) 100 mg Tb24 Take 1 tablet by mouth once daily. CPAP AutoPAP 10-20 cmH2O, suitable mask, humidity, filters, chin strap. Lifetime supplies. Dx: 327.23. compliance rpt to Dr. Miller in 6 wks. nitrofurantoin monohydrate and macrocrystal (MACROBID) 100 mg capsule Take 1 capsule by mouth twice daily with meals for 5 days. CPAP 1 Device daily at bedtime. Auto PAP with Settings 10- 20 cm H2O, suitable mask per pt preference, chin strap, head gear, humidity, tubing, lifetime supplies. G47.33 Obstructive Sleep Apnea. Current machine broken beyond repair. predniSONE (DELTASONE) 10 mg tablet Take 60mg x 3 days, 40mg x 3 days, 20mg x 3 days, 10mg x 3 days. Take with food. No current facility-administered medications for this visit. ALLERGIES No Known Allergies Social History Marital status: Single Spouse name: Years of education: Number of children: Social History Main Topics Smoking status: Never Smoker Smokeless tobacco: Never Used Alcohol use: Yes Comment: occasionally Drug use: No Social History Narrative Goes by Olesya DAVIS: See HPI PE: BP 130/80 Pulse 60 Temp (Src) 98.2 (Left Tympanic) Resp 16 Wt 248 lb (112.5kg) LMP 07/25/2015 Gen: AANDOX3, NAD, non-toxic appearing HEENT: PERRLA, EOMs intact b/l, wearing glasses, nares without drainage, pharynx without erythema, exudate, lesions, or drainage. Uvula midline. Neck: No LAD, no thyromegaly, no meningismus. CV: RRR, no murmur, normal s1s2 Lungs: CTA b/l, no wheezing Skin: No rashes, lesions, or wounds on exposed skin. Trace leg edema ASSESSMENT/PLAN: 1. Fatigue, unspecified type - ICD9: 780.79, ICD10: R53.83 (primary diagnosis) - labs as below, continue CPAP, if not improved then would recommend stress testing and echo due to concerns for possibility of cardiac related symptoms with HTN and HPL as well. - VITAMIN D 25 HYDROXY - VITAMIN B12 BLOOD - VITAMIN B6/PYRIDOXIN - VITAMIN B2/RIBOFLAV - METHYLMALONIC ACID - CBC - TSH BLD 2. Low vitamin B12 level - ICD9: 266.2, ICD10: E53.8 - recheck labs as ordered - VITAMIN B12 BLOOD - VITAMIN B6/PYRIDOXIN - VITAMIN B2/RIBOFLAV - METHYLMALONIC ACID 3. Vitamin D deficiency - ICD9: 268.9, ICD10: E55.9 - restart supplement, recheck labs - VITAMIN D 25 HYDROXY 4. Perimenopausal disorder - ICD9: 627.9, ICD10: N95.9 - recheck labs, okay for prn Macrobid - PROGESTERONE BLD - TESTOSTERONE, FREE AND TOTAL - NITROFURANTOIN MONOHYDRATE AND MACROCRYSTAL 100 MG ORAL CAP 5. Urethritis - ICD9: 597.80, ICD10: N34.2 - see above, f/u in office prn, continue topical estrogen - NITROFURANTOIN MONOHYDRATE AND MACROCRYSTAL 100 MG ORAL CAP 6. Hypercholesterolemia - ICD9: 272.0, ICD10: E78.00 - suboptimal control - Encouraged following a low fat, low cholesterol diet. - Discussed the benefits of regular aerobic exercise and weight loss. 7. Essential hypertension - ICD9: 401.9, ICD10: I10 - good control - Continue current medication(s) - Encouraged dietary sodium restriction/DASH diet - Recommended regular aerobic exercise. - Recommend home blood pressure monitoring, to bring results in on next visit - Goal of BP <130/80 8. ZEYNEP (obstructive sleep apnea) - ICD9: 327.23, ICD10: G47.33 - continue CPAP 9. Anxiety - ICD9: 300.00, ICD10: F41.9 - stable on Prozac, no new symptoms Ted Monroe DO Return if no improvement. Follow up with Ted Monroe DO. To ER if develops chest pain, shortness of breath, Discussed risks, benefits, alternatives, and potential side effects of medications. Patient/Guardian expressed understanding and agreed with the plan. See patient instructions. Ted Monroe DO [address] [place] [address] Allergies As of Date: 04/12/2018 (No Known Allergies) Date Reviewed: 04/12/2018 Reviewed by: Tank Lucas LPN - Fully Assessed Reason for Visit: Follow Up [171] Cmt: 3 months Primary Visit Diagnosis:Fatigue, unspecified type [R53.83] Other Visit Diagnoses:Low vitamin B12 level [E53.8] Vitamin D deficiency [E55.9] Perimenopausal disorder [N95.9] Urethritis [N34.2] Hypercholesterolemia [E78.00] Essential hypertension [I10] ZEYNEP (obstructive sleep apnea) [G47.33] Anxiety [F41.9] Order(s):VITAMIN D 25 HYDROXY [SQVITD] Order #: [id number] FUTURE VITAMIN B12 BLOOD [SQB12] Order #: [id number] FUTURE VITAMIN B6/PYRIDOXIN [SQVITB6] Order #: [id number] FUTURE VITAMIN B2/RIBOFLAV [SQVITB2] Order #: [id number] FUTURE METHYLMALONIC ACID [SQMMA] Order #: [id number] FUTURE CBC [SQCBC] Order #: [id number] FUTURE TSH BLD [SQTSH] Order #: [id number] FUTURE PROGESTERONE BLD [SQPROG] Order #: [id number] FUTURE TESTOSTERONE, FREE AND TOTAL [SQFTESTO] Order #: [id number] FUTURE nitrofurantoin monohydrate and macrocrystal (MACROBID) 100 mg capsuleTake 1 capsule by mouth twice daily with meals for 5 days.Disp: 10 capsuleRfl: 3 Prescriptions as of 04/12/2018 Sig: FLUOXETINE 20 MG CAPSULE Take 1 capsule by mouth once * CONJUGATED ESTROGENS 0.625 MG* 1 finger- tip sized applicati* CHOLECALCIFEROL (VITAMIN D3) * Take 1 tablet by mouth once d* HYDROCHLOROTHIAZIDE 12.5 MG C* Take 1 capsule by mouth once * CELECOXIB 200 MG CAPSULE Take 1 capsule by mouth once * METOPROLOL SUCCINATE ER 100 M* Take 1 tablet by mouth once d* CPAP AutoPAP 10-20 cmH2O, suitable* NITROFURANTOIN MONOHYDRATE AND * Take 1 capsule by mouth twice* CPAP 1 Device daily at bedtime. Au* PREDNISONE 10 MG TABLET Take 60mg x 3 days, 40mg x 3 * Medication notes this encounter PREDNISONE 10 MG TABLET >> Tank Lucas LPN 04/12/2018 8:58 AM >> TANK LUCAS LPN e Apr 12, 2018 8:58 AM Finished Problem List As Of Date 04/12/2018 Noted Resolved Hypertension [I10] INVALID FOR* Anxiety [F41.9] INVALID FOR* ZEYNEP (obstructive sleep apnea) [G47.33] INVALID FOR* More... Obesity [E66.9] INVALID FOR* Hypersomnia [G47.10] INVALID FOR* Hypercholesterolemia [E78.00] INVALID FOR* Elevated serum creatinine [R79.89] INVALID FOR* Elevated fasting glucose [R73.01] INVALID FOR* Essential hypertension [I10] INVALID FOR* Urethritis [N34.2] INVALID FOR* Perimenopausal disorder [N95.9] INVALID FOR* Vitamin D deficiency [E55.9] INVALID FOR* Low vitamin B12 level [E53.8] INVALID FOR* Fatigue [R53.83] INVALID FOR* Prescriptions ordered this encounter Disp Refills Start End NITROFURANTOIN MONOHYDRATE AND MACROCR* 10 c* 3 04/12/2018 04/17/2018 Class: Print RX Route: ORAL Sig: Take 1 capsule by mouth twice daily with meals for 5 days. Encounter Status:Closed by TED MONROE DO on 04/12/18 CNOV Observed: 03/02/2018 Status: COMPLETED Source: [place] 3:00 PM [facility] REPOSITORY Office Visit ([facility]) RAMONA VILLEGAS ([id number]) 1960 F Date Time Provider Department 03/02/18 3:00 PM JESSIE OCASIO CNP During your visit today, we recorded the following information about you: Pulse Blood pressure 60/minute 129/83 Jessie Ocasio APRN.CNP 03/02/2018 4:20 PM Signed Reason for Today's [facility] Clinic Visit at [place]: PAP machine broken beyond repair. [facility] does not service this type of machine ([employer]) and they told her because the poor quality of machine she qualifies for a new machine. SLEEP APNEA Sleep apnea type : ZEYNEP, Most Recent Apnea-Hypopnea Index (AHI): severe per pt Treatment : PAP therapy DME: [facility] ([facility]) PAP History: Uses AutoPAP 7 nights per week. Current PAP settin-20 cm H2O. Difficulties with AutoPAP: None Objective PAP compliance data: not able to download, machine broken beyond repair Mask type: full face mask Mask issues: nasal dryness Uses humidity: Yes There is a perceived benefit by the patient: More alert, does not fall asleep during the day, does not snore, and overall refreshed with therapy. Observers report abolition of snoring with AutoPAP use. ALLERGIES No Known Allergies PAST MEDICAL HISTORY Diagnosis Date - Anxiety - Arthritis - Hypercholesteraemia - Hypertension - ZEYNEP (obstructive sleep apnea) 11/15/2013 on CPAP - Overweight(278.02) - Post-menopausal PAST SURGICAL HISTORY Procedure Laterality Date - COLONOSCOP W/ OR W/O BRSH SPEC 09/04/2013 Colonoscopy- 3 small polyps - COLONOSCOPY N/A 11/09/2016 ACTIVE PROBLEM LIST Hypertension Anxiety Zeynep (Obstructive Sleep Apnea) Obesity Hypersomnia Hypercholesterolemia Elevated Serum Creatinine Elevated Fasting Glucose ? Diagnostic Conclusions: Obstructive Sleep Apnea Other conditions targeted directly or indirectly by intervention: hypersomnia, HTN, HLD, anxiety and obesity ? Self-reports: Has been on therapy for 10 years Uses when she naps Has a [employer] PAP machine and it is broken beyond repair [facility] does not service this type of machine and states because the poor quality she qualifies for a new machine Reports many benefits from therapy as listed above and cannot sleep without it Reports dry nose and mouth Actions Taken Reviewed reasons for treating sleep apnea in group format Individual review of patient's ZEYNEP status and treatment regimen. Unable to review download, machine broken beyond repair Provided list of common PAP issues and resolutions ? Objective Data Compliance: Machine-downloaded PAP compliance data: Unable to review download, machine broken beyond repair Healthy appearing, good comprehension, normal gait, speech logical and goal directed Pleasant demeanor and attire appropriate to season ? Vital signs: BP 129/83 (BP Site: Left Arm, BP Position: Sitting, BP Cuff Size: Large Adult) Pulse 60 LMP 07/25/2015 SpO2 97% ? Plan: - Will start Auto CPAP 10-20 cmH2O with a Full face mask. - I will have a prescription sent to a [place] [employer] company - [facility] who will be calling you in the next 1-2 weeks or so. Please call them directly or us if you do not hear from them in this time frame. - You should be eligible for new supplies approximately every 3-6 months, depending on your insurance coverage. - If your mask doesn't fit well, call the [employer] [place] company before 30 days are up to get a new mask without an additional charge. - Insurance requires regular usage and periodic office follow ups for PAP therapy, to continue to cover supplies. CMS REQUIREMENTS: - Your insurance requires a [id number] follow up visit within a 31-90 day period after starting CPAP. - Your insurance requires compliance with CPAP, which is at least 4 hours per night for 70% of the time. This must be done over a 30 day period and must occur within the initial 31-90 day period after starting CPAP. - Your insurance also requires at least yearly follow ups to continue to pay for CPAP supplies. Follow up in 2 month(s). This visit occurred of a group-based Shared Medical Activity, which included brief education and facilitated group interaction principally to enhance the understanding of and compliance with PAP therapy. This education emphasizes the benefits to daily functioning (Reduced Sleepiness, Improved Energy, Reduced Fatigue, and Reduced Irritability) that may accrue to many patients, but especially emphasizes the importance of adverse cardiovascular and metabolic outcomes (Heart attacks, strokes, hypertension, and worsening diabetes) that compliance to PAP therapy is intended to forestall or delay. This activity is directed at problems pertinent to CPAP mask therapy, and includes DME providers who were also available for immediate contact and intervention. Jessie Tompkins Ma 03/02/2018 2:48 PM Signed Patient presents with: [facility] Gerri Tompkins Ma 03/03/2018 7:54 AM Signed Order for new/replacement device and OV notes from 03/02/18 faxed to DME; [facility] fax #[phone] phone# [phone]. Patient to have machine DL at [facility] for compliance. Confirmed and filed. Gerri Tompkins Ma Referring Provider: SELF [200] Allergies As of Date: 03/02/2018 (No Known Allergies) Date Reviewed: 03/02/2018 Reviewed by: Gerri Tompkins Ma - Fully Assessed Reason for Visit: [facility] [Other] Primary Visit Diagnosis:ZEYNEP (obstructive sleep apnea) [G47.33] Other Visit Diagnosis:Hypertension, unspecified type [I10] Order(s):CPAP1 Device daily at bedtime. Auto PAP with Settings 10-20 cm H2O, suitable mask per pt preference, chin strap, head gear, humidity, tubing, lifetime supplies. G47.33 Obstructive Sleep Apnea. Current machine broken beyond repair.Disp: 1 DeviceRfl: 0 Prescriptions as of 03/02/2018 Sig: PREDNISONE 10 MG TABLET Take 60mg x 3 days, 40mg x 3 * FLUOXETINE 20 MG CAPSULE Take 1 capsule by mouth once * CONJUGATED ESTROGENS 0.625 MG* 1 finger- tip sized applicati* CHOLECALCIFEROL (VITAMIN D3) * Take 1 tablet by mouth once d* HYDROCHLOROTHIAZIDE 12.5 MG C* Take 1 capsule by mouth once * CELECOXIB 200 MG CAPSULE Take 1 capsule by mouth once * METOPROLOL SUCCINATE ER 100 M* Take 1 tablet by mouth once d* CPAP AutoPAP 10-20 cmH2O, suitable* CPAP 1 Device daily at bedtime. Au* Problem List As Of Date 03/02/2018 Noted Resolved Hypertension [I10] INVALID FOR* Anxiety [F41.9] INVALID FOR* ZEYNEP (obstructive sleep apnea) [G47.33] INVALID FOR* More... Obesity [E66.9] INVALID FOR* Hypersomnia [G47.10] INVALID FOR* Hypercholesterolemia [E78.00] INVALID FOR* Elevated serum creatinine [R79.89] INVALID FOR* Elevated fasting glucose [R73.01] INVALID FOR* Visit Notes: >> Gerri Tompkins Ma Wed March 02, 2018 2:47 PM Status: Signed Patient presents with: [facility] clinic >> Gerri Tompkins Ma Jennifer March 03, 2018 7:52 AM Status: Signed Order for new/replacement device and OV notes from 03/02/18 faxed to DME; [facility] Ch[facility] fax #[phone] phone# [phone]. Patient to have machine DL at [facility] for compliance. Confirmed and filed. Gerri Tompkins Ma Prescriptions ordered this encounter Disp Refills Start End CPAP 1 De* 0 03/02/2018 Class: Print RX Route: OTHER Si Device daily at bedtime. Auto PAP with Settings 10- 20 cm H2O, suitable mask per pt preference, chin strap, head gear, humidity, tubing, lifetime supplies. G47.33 Obstructive Sleep Apnea. Current machine broken beyond repair. Encounter Status:Closed by JESSIE OCASIO on 03/02/18 PROGRESS Observed: 03/02/2018 Status: COMPLETED Source: [place] 2:43 PM [facility] REPOSITORY HNO ID: [id number] Author: Jessie (Fiona) Amarjit Service: (none) Author Type: Nurse Practitioner Type: Progress Notes Filed: 03/02/2018 4:20 PM Note Text: Reason for Today's [facility] Clinic Visit at [place]: PAP machine broken beyond repair. [facility] does not service this type of machine ([employer]) and they told her because the poor quality of machine she qualifies for a new machine. SLEEP APNEA Sleep apnea type : ZEYNEP, Most Recent Apnea-Hypopnea Index (AHI): severe per pt Treatment : PAP therapy DME: [facility] ([facility]) PAP History: Uses AutoPAP 7 nights per week. Current PAP settin-20 cm H2O. Difficulties with AutoPAP: None Objective PAP compliance data: not able to download, machine broken beyond repair Mask type: full face mask Mask issues: nasal dryness Uses humidity: Yes There is a perceived benefit by the patient: More alert, does not fall asleep during the day, does not snore, and overall refreshed with therapy. Observers report abolition of snoring with AutoPAP use. ALLERGIES No Known Allergies PAST MEDICAL HISTORY Diagnosis Date - Anxiety - Arthritis - Hypercholesteraemia - Hypertension - ZEYNEP (obstructive sleep apnea) 11/15/2013 on CPAP - Overweight(278.02) - Post-menopausal PAST SURGICAL HISTORY Procedure Laterality Date - COLONOSCOP W/ OR W/O BRSH SPEC 09/04/2013 Colonoscopy- 3 small polyps - COLONOSCOPY N/A 11/09/2016 ACTIVE PROBLEM LIST Hypertension Anxiety Zeynep (Obstructive Sleep Apnea) Obesity Hypersomnia Hypercholesterolemia Elevated Serum Creatinine Elevated Fasting Glucose ? Diagnostic Conclusions: Obstructive Sleep Apnea Other conditions targeted directly or indirectly by intervention: hypersomnia, HTN, HLD, anxiety and obesity ? Self-reports: Has been on therapy for 10 years Uses when she naps Has a [employer] PAP machine and it is broken beyond repair [facility] does not service this type of machine and states because the poor quality she qualifies for a new machine Reports many benefits from therapy as listed above and cannot sleep without it Reports dry nose and mouth Actions Taken Reviewed reasons for treating sleep apnea in group format Individual review of patient's ZEYNEP status and treatment regimen. Unable to review download, machine broken beyond repair Provided list of common PAP issues and resolutions ? Objective Data Compliance: Machine-downloaded PAP compliance data: Unable to review download, machine broken beyond repair Healthy appearing, good comprehension, normal gait, speech logical and goal directed Pleasant demeanor and attire appropriate to season ? Vital signs: BP 129/83 (BP Site: Left Arm, BP Position: Sitting, BP Cuff Size: Large Adult) Pulse 60 LMP 07/25/2015 SpO2 97% ? Plan: - Will start Auto CPAP 10-20 cmH2O with a Full face mask. - I will have a prescription [facility] [employer] [facility] will be [facility] you in the next 1-2 weeks or so. Please call them directly or us if you do not hear from them in this time frame. - You should be eligible for new supplies approximately every 3-6 months, depending on your insurance coverage. - If your mask doesn't fit well, call the [employer] [place] company before 30 days are up to get a new mask without an additional charge. - Insurance requires regular usage and periodic office follow ups for PAP therapy, to continue to cover supplies. CMS REQUIREMENTS: - Your insurance requires a [id number] follow up visit within a 31-90 day period after starting CPAP. - Your insurance requires compliance with CPAP, which is at least 4 hours per night for 70% of the time. This must be done over a 30 day period and must occur within the initial 31-90 day period after starting CPAP. - Your insurance also requires at least yearly follow ups to continue to pay for CPAP supplies. Follow up in 2 month(s). This visit occurred of a group-based Shared Medical Activity, which included brief education and facilitated group interaction principally to enhance the understanding of and compliance with PAP therapy. This education emphasizes the benefits to daily functioning (Reduced Sleepiness, Improved Energy, Reduced Fatigue, and Reduced Irritability) that may accrue to many patients, but especially emphasizes the importance of adverse cardiovascular and metabolic outcomes (Heart attacks, strokes, hypertension, and worsening diabetes) that compliance to PAP therapy is intended to forestall or delay. This activity is directed at problems pertinent to CPAP mask therapy, and includes DME providers who were also available for immediate contact and intervention. Jessie Ocasio CNP PROGRESS Observed: 01/11/2018 Status: COMPLETED Source: [place] 9:02 AM [facility] REPOSITORY HNO ID: [id number] Author: Padmini Vidal (Wafer [employer] Operator) Jasson Service: (none) Author Type: Nurse Practitioner Type: Progress Notes Filed: 01/11/2018 9:08 AM Note Text: HPI/CC: Ramona Villegas is a 57 year old female who presents for 6 week follow up. Was seen in Urology and Dx with atrophic vaginosis. Started on AZO and topical estrogen with progressive improvement of symptoms. Continues to struggle with mood. Currently taking 10mg Prozac daily w/o SE. Reports new symptom of upper back and left arm numbness and tingling x 2 weeks. No injury but may have over strained it while opening a can. Was seen in for the same and given Flexeril. Flexeril was only slightly helpful but made patient feel out of it. ROS as above, otherwise non-contributory. Reviewed PMHx, PSHx, social Hx, medications and allergies. PHYSICAL EXAMINATION: BP 130/80 Pulse 60 Resp 12 Wt 114.3 kg (252 lb) LMP 07/25/2015 BMI 40.67 kg/m2 General appearance: Well appearing, alert, in no acute distress, well-hydrated, well nourished. Skin: Skin color, texture, turgor normal, no suspicious rashes or lesions Back: Normal exam Lungs: Lungs clear to auscultation. No wheezing, rhonchi, rales Heart: RRR without murmur, gallop, or rubs. No ectopy Ext: LUE with FROM, no pain. No edema in LE bilaterally, no joint deformities ASSESSMENT/PLAN: 1. Upper back pain - ICD9: 724.5, ICD10: M54.9 (primary diagnosis) 2. Numbness and tingling - ICD9: 782.0, ICD10: R20.0, R20.2 - PREDNISONE 10 MG TABLET 3. Anxiety - ICD9: 300.00, ICD10: F41.9 - FLUOXETINE 20 MG CAPSULE- increased from 10 mg to 20 mg - f/u in 3 months Padmini Spaulding APRN.CNP CNOV Observed: 01/11/2018 Status: COMPLETED Source: [place] 8:40 AM [facility] REPOSITORY [facility]IL[facility] ([id number]) 1960 F Date Time Provider Department 01/11/18 8:40 AM PADMINI SPAULDING ([facility]) [facility] During your visit today, we recorded the following information about you: Pulse Respiration Blood pressure Weight 60/minute 12/minute 130/80 114.3 kg Padmini Spaulding APRN.CNP 01/11/2018 9:08 AM Signed HPI/CC: Ramona Villegas is a 57 year old female who presents for 6 week follow up. Was seen in Urology and Dx with atrophic vaginosis. Started on AZO and topical estrogen with progressive improvement of symptoms. Continues to struggle with mood. Currently taking 10mg Prozac daily w/o SE. Reports new symptom of upper back and left arm numbness and tingling x 2 weeks. No injury but may have over strained it while opening a can. Was seen in UC for the same and given Flexeril. Flexeril was only slightly helpful but made patient feel ANDquot;out of itANDquot;. ROS as above, otherwise non-contributory. Reviewed PMHx, PSHx, social Hx, medications and allergies. PHYSICAL EXAMINATION: BP 130/80 Pulse 60 Resp 12 Wt 114.3 kg (252 lb) LMP 07/25/2015 BMI 40.67 kg/m2 General appearance: Well appearing, alert, in no acute distress, well-hydrated, well nourished. Skin: Skin color, texture, turgor normal, no suspicious rashes or lesions Back: Normal exam Lungs: Lungs clear to auscultation. No wheezing, rhonchi, rales Heart: RRR without murmur, gallop, or rubs. No ectopy Ext: LUE with FROM, no pain. No edema in LE bilaterally, no joint deformities ASSESSMENT/PLAN: 1. Upper back pain - ICD9: 724.5, ICD10: M54.9 (primary diagnosis) 2. Numbness and tingling - ICD9: 782.0, ICD10: R20.0, R20.2 - PREDNISONE 10 MG TABLET 3. Anxiety - ICD9: 300.00, ICD10: F41.9 - FLUOXETINE 20 MG CAPSULE- increased from 10 mg to 20 mg - f/u in 3 months Padmini Spaulding APRN.[facility] Referring Provider: PADMNII SPAULDING ([facility]) [[id number]] Allergies As of Date: 01/11/2018 (No Known Allergies) Date Reviewed: 01/11/2018 Reviewed by: Lili Grider LPN - Fully Assessed Reason for Visit: Recheck [92] Cmt: 6 week follow up Primary Visit Diagnosis:Upper back pain [M54.9] Other Visit Diagnoses:Numbness and tingling [R20.0, R20.2] Anxiety [F41.9] Order(s):predniSONE (DELTASONE) 10 mg tabletTake 60mg x 3 days, 40mg x 3 days, 20mg x 3 days, 10mg x 3 days. Take with food.Disp: 39 tabletRfl: 0 FLUoxetine (PROZAC) 20 mg capsuleTake 1 capsule by mouth once daily.Disp: 90 capsuleRfl: 3 Prescriptions as of 01/11/2018 Sig: FLUOXETINE 20 MG CAPSULE Take 1 capsule by mouth once * CONJUGATED ESTROGENS 0.625 MG* 1 finger- tip sized applicati* CHOLECALCIFEROL (VITAMIN D3) * Take 1 tablet by mouth once d* HYDROCHLOROTHIAZIDE 12.5 MG C* Take 1 capsule by mouth once * CELECOXIB 200 MG CAPSULE Take 1 capsule by mouth once * METOPROLOL SUCCINATE ER 100 M* Take 1 tablet by mouth once d* CPAP AutoPAP 10-20 cmH2O, suitable* PREDNISONE 10 MG TABLET Take 60mg x 3 days, 40mg x 3 * Problem List As Of Date 01/11/2018 Noted Resolved Hypertension [I10] INVALID FOR* Anxiety [F41.9] INVALID FOR* ZEYNEP (obstructive sleep apnea) [G47.33] INVALID FOR* More... Obesity [E66.9] INVALID FOR* Hypersomnia [G47.10] INVALID FOR* Hypercholesterolemia [E78.00] INVALID FOR* Elevated serum creatinine [R79.89] INVALID FOR* Elevated fasting glucose [R73.01] INVALID FOR* Prescriptions ordered this encounter Disp Refills Start End PREDNISONE 10 MG TABLET 39 t* 0 01/11/2018 Sig: Take 60mg x 3 days, 40mg x 3 days, 20mg x 3 days, 10mg x 3 days. Take with food. FLUOXETINE 20 MG CAPSULE 90 c* 3 01/11/2018 Route: ORAL Sig: Take 1 capsule by mouth once daily. Medications Discontinued During This Encounter buPROPion XL (WELLBUTRIN XL) 150 mg * 90 t* 3 07/27/2017 01/11/2018 Route: ORAL Sig: Take 1 tablet by mouth once daily. Disc: Reason for discontinue is not on file. FLUoxetine (PROZAC) 10 mg capsule 30 c* 3 11/25/2017 01/11/2018 Route: ORAL Sig: Take 1 capsule by mouth once daily. Disc: Reason for discontinue is not on file. potassium chloride (K-TAB) 10 mEq ta* 30 t* 0 04/15/2017 01/11/2018 Sig: TAKE 1 TABLET DAILY WITH BREAKFAST Disc: Reason for discontinue is not on file. cyclobenzaprine (FLEXERIL) 10 mg tab* 15 t* 0 01/02/2018 01/11/2018 Route: ORAL Sig: Take 1 tablet by mouth three times daily as needed for Muscle Spasm for up to 5 days. Disc: Reason for discontinue is not on file. Encounter Status:Closed by PADMINI SPAULDING CNP on 01/11/18 PROGRESS Observed: 01/02/2018 Status: COMPLETED Source: [place] 9:55 AM [facility] REPOSITORY HNO ID: [id number] Author: Olesya (Fiona) SHEELA Pickett.FIONA Service: (none) Author Type: Nurse Practitioner Type: Progress Notes Filed: 01/02/2018 10:13 AM Note Text: Subjective HPI Ramona Villegas is a 57 year old female who presents with a stiff left shoulder for the past 5 days. She woke up with the pain and stiffness, has used heat and ice at home, and has been taking celebrex and tylenol at home. She states the pain is getting worse and now radiating down her left arm. She rates the pain an 8/ 10 and cannot sleep due to pain. She has some tingling in the left upper arm. Review of Systems Constitutional: Negative. Negative for chills, diaphoresis and fever. Cardiovascular: Negative. Negative for chest pain. Gastrointestinal: Negative. Negative for nausea and vomiting. Musculoskeletal: Positive for neck pain. Negative for falls. Neurological: Positive for tingling (left upper arm). BP 130/80 Pulse 76 Temp 36.2 ?C (97.2 ?F) (Left Tympanic) Resp 18 Wt 114.3 kg (252 lb) LMP 07/25/2015 BMI 40.67 kg/m2 PAST MEDICAL HISTORY Diagnosis Date - Anxiety - Arthritis - Hypercholesteraemia - Hypertension - ZEYNEP (obstructive sleep apnea) 11/15/2013 on CPAP - Overweight(278.02) - Post-menopausal PAST SURGICAL HISTORY Procedure Laterality Date - COLONOSCOP W/ OR W/O [facility] SPEC 09/04/2013 Colonoscopy- 3 small polyps - COLONOSCOPY N/A 11/09/2016 ALLERGIES Review of patient's allergies indicates no known allergies. MEDICATIONS conjugated estrogens (PREMARIN) vaginal cream 1 finger- tip sized application every other evening cholecalciferol (VITAMIN D3) 2,000 unit tablet Take 1 tablet by mouth once daily. FLUoxetine (PROZAC) 10 mg capsule Take 1 capsule by mouth once daily. Hydrochlorothiazide 12.5 mg capsule Take 1 capsule by mouth once daily. buPROPion XL (WELLBUTRIN XL) 150 mg 24 hr tablet Take 1 tablet by mouth once daily. celecoxib (CELEBREX) 200 mg capsule Take 1 capsule by mouth once daily. metoprolol succinate ER (TOPROL XL) 100 mg Tb24 Take 1 tablet by mouth once daily. potassium chloride (K-TAB) 10 mEq tablet TAKE 1 TABLET DAILY WITH BREAKFAST CPAP AutoPAP 10-20 cmH2O, suitable mask, humidity, filters, chin strap. Lifetime supplies. Dx: 327.23. compliance rpt to Dr. Miller in 6 wks. FAMILY HISTORY Problem Relation Age of Onset - Arthritis Mother - Hypertension Mother - Hypertension Father - Heart Father - Cancer Father melanoma - Lipids Father - Hypertension Maternal Grandmother - Hypertension Maternal Grandfather - Cancer Maternal Grandmother uterine - Hypertension Paternal Grandmother - Osteoporosis Paternal Grandmother - Osteoporosis Paternal Grandfather - Breast Cancer Paternal Grandmother Social History Substance Use Topics - Smoking status: Never Smoker - Smokeless tobacco: Never Used - Alcohol use Yes Comment: occasionally Objective Physical Exam Constitutional: She is well-developed, well-nourished, and in no distress. HENT: Head: Normocephalic and atraumatic. Neck: Decreased range of motion (due to muscle stiffness) present. Cardiovascular: Normal rate, regular rhythm and normal heart sounds. Pulmonary/Chest: Effort normal and breath sounds normal. No respiratory distress. She has no wheezes. She has no rales. Musculoskeletal: Left shoulder: She exhibits tenderness and pain. She exhibits normal range of motion, no bony tenderness, no swelling, no effusion, no crepitus, no deformity, normal pulse and normal strength. Arms: Neurological: She is alert. Skin: Skin is warm and dry. No rash noted. No erythema. Nursing note and vitals reviewed. ASSESSMENT/PLAN: 1. Muscle spasm - ICD9: 728.85, ICD10: M62.838 - CYCLOBENZAPRINE 10 MG TABLET - MASSAGE THERAPY - continue Celbrex - recommend heat application TID - Follow-up with your PCP in 3-5 days if symptoms have not improved or sooner if symptoms worsen - Discussed red flags and need for immediate medical evaluation if any occur. - Discussed supportive care treatment with fluids, rest and analgesia. - Discussed expected course of illness Olesya Pickett APRN.[employer]IST CNOV Observed: 01/02/2018 Status: COMPLETED Source: [place] 9:45 AM [facility] REPOSITORY Office Visit (UCWSTR) RAMONA VILLEGAS ([id number]) 1960 F Date Time Provider Department 01/02/18 9:45 AM OLESYA PICKETT) [facility] During your visit today, we recorded the following information about you: Temperature Pulse Respiration Blood pressure 97.2 degrees 76/minute 18/minute 130/80 Weight 114.3 kg Olesya Pickett APRN.XIMENA MONROY 01/02/2018 10:13 AM Signed Subjective HPI Ramona Villegas is a 57 year old female who presents with a stiff left shoulder for the past 5 days. She woke up with the pain and stiffness, has used heat and ice at home, and has been taking celebrex and tylenol at home. She states the pain is getting worse and now radiating down her left arm. She rates the pain an 8/ 10 and cannot sleep due to pain. She has some tingling in the left upper arm. Review of Systems Constitutional: Negative. Negative for chills, diaphoresis and fever. Cardiovascular: Negative. Negative for chest pain. Gastrointestinal: Negative. Negative for nausea and vomiting. Musculoskeletal: Positive for neck pain. Negative for falls. Neurological: Positive for tingling (left upper arm). BP 130/80 Pulse 76 Temp 36.2 ?C (97.2 ?F) (Left Tympanic) Resp 18 Wt 114.3 kg (252 lb) LMP 07/25/2015 BMI 40.67 kg/m2 PAST MEDICAL HISTORY Diagnosis Date - Anxiety - Arthritis - Hypercholesteraemia - Hypertension - ZEYNEP (obstructive sleep apnea) 11/15/2013 on CPAP - Overweight(278.02) - Post-menopausal PAST SURGICAL HISTORY Procedure Laterality Date - COLONOSCOP W/ OR W/O [facility] SPEC 09/04/2013 Colonoscopy- 3 small polyps - COLONOSCOPY N/A 11/09/2016 ALLERGIES Review of patient's allergies indicates no known allergies. MEDICATIONS conjugated estrogens (PREMARIN) vaginal cream 1 finger- tip sized application every other evening cholecalciferol (VITAMIN D3) 2,000 unit tablet Take 1 tablet by mouth once daily. FLUoxetine (PROZAC) 10 mg capsule Take 1 capsule by mouth once daily. Hydrochlorothiazide 12.5 mg capsule Take 1 capsule by mouth once daily. buPROPion XL (WELLBUTRIN XL) 150 mg 24 hr tablet Take 1 tablet by mouth once daily. celecoxib (CELEBREX) 200 mg capsule Take 1 capsule by mouth once daily. metoprolol succinate ER (TOPROL XL) 100 mg Tb24 Take 1 tablet by mouth once daily. potassium chloride (K-TAB) 10 mEq tablet TAKE 1 TABLET DAILY WITH BREAKFAST CPAP AutoPAP 10-20 cmH2O, suitable mask, humidity, filters, chin strap. Lifetime supplies. Dx: 327.23. compliance rpt to Dr. Miller in 6 wks. FAMILY HISTORY Problem Relation Age of Onset - Arthritis Mother - Hypertension Mother - Hypertension Father - Heart Father - Cancer Father melanoma - Lipids Father - Hypertension Maternal Grandmother - Hypertension Maternal Grandfather - Cancer Maternal Grandmother uterine - Hypertension Paternal Grandmother - Osteoporosis Paternal Grandmother - Osteoporosis Paternal Grandfather - Breast Cancer Paternal Grandmother Social History Substance Use Topics - Smoking status: Never Smoker - Smokeless tobacco: Never Used - Alcohol use Yes Comment: occasionally Objective Physical Exam Constitutional: She is well-developed, well-nourished, and in no distress. HENT: Head: Normocephalic and atraumatic. Neck: Decreased range of motion (due to muscle stiffness) present. Cardiovascular: Normal rate, regular rhythm and normal heart sounds. Pulmonary/Chest: Effort normal and breath sounds normal. No respiratory distress. She has no wheezes. She has no rales. Musculoskeletal: Left shoulder: She exhibits tenderness and pain. She exhibits normal range of motion, no bony tenderness, no swelling, no effusion, no crepitus, no deformity, normal pulse and normal strength. Arms: Neurological: She is alert. Skin: Skin is warm and dry. No rash noted. No erythema. Nursing note and vitals reviewed. ASSESSMENT/PLAN: 1. Muscle spasm - ICD9: 728.85, ICD10: M62.838 - CYCLOBENZAPRINE 10 MG TABLET - MASSAGE THERAPY - continue Celbrex - recommend heat application TID - Follow-up with your PCP in 3-5 days if symptoms have not improved or sooner if symptoms worsen - Discussed red flags and need for immediate medical evaluation if any occur. - Discussed supportive care treatment with fluids, rest and analgesia. - Discussed expected course of illness XIMENA Roca APRN.CNP, APRN.CNP 01/02/2018 10:05 AM Signed Muscle spasm: Recommend muscle relaxant as prescribed, heat application three times daily, and massage therapy. Referring Provider: SELF [[id number]] Allergies As of Date: 01/02/2018 (No Known Allergies) Date Reviewed: 01/02/2018 Reviewed by: Olesya (Fiona) XIMENA Pickett - Fully Assessed Reason for Visit: stiff neck [Other] Primary Visit Diagnosis:Muscle spasm [M62.838] Order(s):cyclobenzaprine (FLEXERIL) 10 mg tabletTake 1 tablet by mouth three times daily as needed for Muscle Spasm for up to 5 days.Disp: 15 tabletRfl: 0 MASSAGE THERAPY [[id number]] Order #: [id number] Prescriptions as of 01/02/2018 Sig: CYCLOBENZAPRINE 10 MG TABLET Take 1 tablet by mouth three * CONJUGATED ESTROGENS 0.625 MG* 1 finger- tip sized applicati* CHOLECALCIFEROL (VITAMIN D3) * Take 1 tablet by mouth once d* FLUOXETINE 10 MG CAPSULE Take 1 capsule by mouth once * HYDROCHLOROTHIAZIDE 12.5 MG C* Take 1 capsule by mouth once * BUPROPION XL 150 MG TAB Take 1 tablet by mouth once d* CELECOXIB 200 MG CAPSULE Take 1 capsule by mouth once * METOPROLOL SUCCINATE ER 100 M* Take 1 tablet by mouth once d* POTASSIUM CHLORIDE ER 10 MEQ * TAKE 1 TABLET DAILY WITH LOY* CPAP AutoPAP 10-20 cmH2O, suitable* Problem List As Of Date 01/02/2018 Noted Resolved Hypertension [I10] INVALID FOR* Anxiety [F41.9] INVALID FOR* ZEYNEP (obstructive sleep apnea) [G47.33] INVALID FOR* More... Obesity [E66.9] INVALID FOR* Hypersomnia [G47.10] INVALID FOR* Hypercholesterolemia [E78.00] INVALID FOR* Elevated serum creatinine [R79.89] INVALID FOR* Elevated fasting glucose [R73.01] INVALID FOR* Other instructions from your clinician: Muscle spasm: Recommend muscle relaxant as prescribed, heat application three times daily, and massage therapy. Prescriptions ordered this encounter Disp Refills Start End CYCLOBENZAPRINE 10 MG TABLET 15 t* 0 01/02/2018 01/07/2018 Route: ORAL Sig: Take 1 tablet by mouth three times daily as needed for Muscle Spasm for up to 5 days. Encounter Status:Closed by OLESYA PICKETT on 01/02/18 PROGRESS Observed: 12/24/2017 Status: COMPLETED Source: [place] 3:09 PM [facility] [place] REPOSITORY HNO ID: [id number] Author: Tara Steele) [place] Service: (none) Author Type: Physician Jackscrew Worker Type: Progress Notes Filed: 12/24/2017 6:44 PM Note Text: [facility] PATIENT INFO: Ramona Villegas 57 year old PCP: Ted Monroe DO Referred by: Padmini Spaulding ([facility]) Consult: A consultation requested by Padmini Spaulding ([facility]) for an opinion regarding Urinary urgency and frequency My final recommendations communicated back to the requesting physician by way of shared Medical record. CHIEF COMPLAINT: Urinary urgency and frequency HPI: This is a 57 year old female, who has Urinary urgency and frequency , which started in 2014, and involves the Urine, Bladder Patient states this moderate in severity and moderate in quality, and is happening constantly Aggravating factors: No , Alleviating Factors: No . And the patient denies having Fever, Chills, Rigors, Nausea and Vomiting VOIDING SYMPTOMS: NTF: 0-1 Times Small Amounts DTF: Q 30 min to 1 HOURS FOS: Average Hesitancy: No Straining: No Intermittency: No Urgency: Yes Frequency: Yes Dysuria: Yes Gross Hematuria: No U/A Dipstick Positive Blood - Only No Incomplete Voiding: Yes Double Voiding: No Post Void Dribbling: No Incontinence: No REVIEW OF SYSTEMS: General: General: Well developed, well nourished. No acute distress HEENT: Negative for sore throat, difficulty swallowing. Negative for frequent or significant headaches, changes in vision or hearing. Cardiovascular: No history of cardiovascular symtoms or problems. No history of angina, CHF, OK, cardiac surgery of stents. Respiratory: Negative for current cough, dyspnea. No hx of pneumonia in the past six weeks Gastrointestinal: No history of GERD, PUD, abd pain, difficulty swallowing, GI bleed. Renal: Negative for renal failure and No history of dialysis Musculoskeletal: Negative for joint pain or swelling, back pain or muscle pain. Skin: Negative for lesions, rash and itching. Psychological: No history of psychiatric symptoms or problems. Neurologic: No history of TIA's, stroke, SHE[employer]ING SUPERVISOR tumor, impaired sensorium, hemiplegia, paraplegia or quadriplegia. No neurological symptoms or problems. Hematology/Oncology: No history of bleeding or clotting disorder. Pt is not taking anti-coagulation or platelet medications. No history of hematological symptoms or problems. Endocrine: No history of endocrinological symtoms or problems No history of DM; has not taken steroids w/in past 30 days. Negative for excessive sweating, thirst or hunger PHYSICAL EXAMINATION: General Appearance/ Constitutional: Well developed, well nourished, and in no apparent distress HEENT: Not examined Neck: Lymph Nodes: Not examined Cardiac: Normal Breast: Not examined Pulmonary: Ascultation: Normal Effort: Normal GI: Soft and Non-tender Peripheral Vascular: Not examined Extremities: Cyanosis absent, Clubbing absent and Edema absent Skin: Normal Neurologic: Grossly non-focal, Alert and oriented and Affect appropriate [facility] Recurrent UTI Step Prevention Program: Takes 6 months before it is fully ineffect! This is not a treatment program for each time you may get a breakthrough infection in the future or while you are waiting for the prevention program to take effect over the next 6 months. Your primary care team will treat any breakthrough infections or provide refills for any of my suggestions below. The following is the recommended treatment to PREVENT recurrent urinary tract infections. 1) Topical estrogen cream for atrophic vaginitis: estrace cream fingertip application every other night 2) Probiotics: take any brand once daily: Try the brand Align but change brands every 6 months 3) A good bowel regimen to promote a BM each day or by every 3rd day 4) For break through infections over the next 6 months, use a 3 day course of Macrobid in which you use 1 pill 2 x a day for 3 days; if symptoms persists and you think you have a UTI, contact your PCP provider. 5) You may use AZO as directed as an OTC bladder pain relief when you have a breakthrough UTI; I think aspirin or Motrin/Aleve OTC is useful as well during an active infection Patient Information: Topical estrogen cream is recommended to restore the vaginal epithelium to its pre menopausal state. With a decrease in estrogen after menopause, the vaginal environment changes. This can lead to increased itchiness, dryness, and irritation. The environment becomes more basic/alkaline to a pH of 6.0 to 7.5. Normally the pH level is around 3.5 to 4.5. A different bacterial sarah then begins to colonize the vagina which can lead to increased urinary tract infections. In order to re- establish the good bacteria sarah, it is important to get the vaginal epithelium back to its pre menopausal state. This can be done with topical estrogen cream. A pea sized amount on the tip of the finger used every other night can do this. It takes about six months for the environment to become hospitable to good bacteria. During this time your doctor may or may not also prescribe a low dose daily antibiotic to decrease your chance of infections. Side effects of topical estrogen use include breast tenderness, vaginal bleeding or spotting, nonphysiologic discharge, vaginal irritation, burning and itching. If you have a history of deep vein thrombosis, pulmonary embolism, uterine cancer or estrogen receptor positive breast cancer, you may want to discuss this with your doctor prior to starting topical estrogen use. Histology slides of vaginal epithelium without estrogen then with estrogen supplementation. Epi stands for epithelium. Progress and Prospects in Treating Postmenopausal Vaginal atrophy. Clinical pharmacology AND Therapeutics, Vol 89 Number 1, October 2010 Probiotics also helps in re-establishing the good bacteria in the vaginal sarah. Numerous probiotics are available over the counter to use. This can also help with establishing a good bowel regimen. Given the bowel's close proximity to both the vagina and urethra/bladder, it is important to have regular bowel movements to decrease voiding symptoms and also decrease the risk of urinary tract infections. A good bowel regimen help with decreasing colonic sarah in the perineal area. This can be done with stool softeners available over the counter to gentle laxatives such as miralax. We would suggest avoiding fdc use of laxatives though and if you would like a consult with gastroenterology for additional evaluation please ask. Along with these three strategies to prevent recurrent infections, your doctor may add additional strategies tailored to your situation. We are commonly asked whether taking cranberry extract will prevent urinary tract infections. Based on the most recent [place] Review evaluating cranberries and the prevention of urinary tract infections, there is no clear evidence to suggest that cranberries effectively prevents urinary tract infections. Supplements with cranberry extracts have not been studied in a standardized fashion to suggest a benefit to using these daily. As such, we do not include using cranberry extract as part of our regimen to decreasing recurrent urinary tract infections. ADDITIONAL DATA REVIEWED: Most recent imaging Most recent labs Results for orders placed or performed in visit on 12/24/17 UA DIP, URINE (POC) Result Value Ref Range GLUCOSE UA (POCT) Negative Neg mg/dL BILIRUBIN UA (POCT) Negative Neg KETONE UA (POCT) Negative Neg mg/dL SPECIFIC GRAVITY UA (POCT) 1.025 1.005 - 1.030 HEMOGLOBIN/BLOOD UA (POCT) Small (A) Neg PH UA (POCT) 6.5 4.5 - 8 PROTEIN UA (POCT) Negative Neg mg/dL UROBILINOGEN UA (POCT) 0.2 Normal(<1.1) E.U./dL NITRITE UA (POCT) Negative Neg LEUKOCYTES UA (POCT) Negative Neg COLOR UA (POCT) Yellow CLARITY UA (POCT) Clear RADIOLOGY: N/A Risk of complication and/or Morbidity or Mortality: LOW DISEASE SPECIFICITY: Diagnosis: Atrophic Vaginitis Acuity: Chronic Severity: Mild Anatomic Site: Bladder, Laterality: N/A Urethra, Laterality: Not applicable Vagina, Laterality: N/A Underlying Condition/Causal Agent: Primary Associated Conditions/Manifestations: S/p Hysterectomy and decreased Estrogen IMPRESSION / PLAN: > History of Urinary urgency and Frequency > Negative for UTI - ve culture > Lots of Pressure not really painful > s/p Hysterectomy > Possible atrophic Vaginitis > Trial of UTI Prevention protocol as above > Rx for Premarin escripted > AZO ok I spent approximately 40 minutes in this visit, with more than 50% of the time devoted to patient discussion, counseling, review of records and/or coordination of care. ANNE Maynard, [place], PAYuki PATEL Observed: 12/24/2017 Status: COMPLETED Source: [place] 2:30 PM [facility] REPOSITORY Office Visit (UROLWS) RAMONA VILLEGAS ([id number]) 1960 F Date Time Provider Department 12/24/17 2:30 PM TARA OLVERA) [facility] During your visit today, we recorded the following information about you: Pulse Blood pressure Weight Height 64/minute 144/78 114.8 kg 1.676 m JARVIS Cain 12/24/2017 6:44 PM Signed [facility] PATIENT INFO: Ramona Villegas 57 year old PCP: Ted Monroe DO Referred by: Padmini Spaulding ([facility]) Consult: A consultation requested by Padmini Spaulding ([facility]) for an opinion regarding Urinary urgency and frequency My final recommendations communicated back to the requesting physician by way of shared Medical record. CHIEF COMPLAINT: Urinary urgency and frequency HPI: This is a 57 year old female, who has Urinary urgency and frequency , which started in 2014, and involves the Urine, Bladder Patient states this moderate in severity and moderate in quality, and is happening constantly Aggravating factors: No , Alleviating Factors: No . And the patient denies having Fever, Chills, Rigors, Nausea and Vomiting VOIDING SYMPTOMS: NTF: 0-1 Times Small Amounts DTF: Q 30 min to 1 HOURS FOS: Average Hesitancy: No Straining: No Intermittency: No Urgency: Yes Frequency: Yes Dysuria: Yes Gross Hematuria: No U/A Dipstick Positive Blood - Only No Incomplete Voiding: Yes Double Voiding: No Post Void Dribbling: No Incontinence: No REVIEW OF SYSTEMS: General: General: Well developed, well nourished. No acute distress HEENT: Negative for sore throat, difficulty swallowing. Negative for frequent or significant headaches, changes in vision or hearing. Cardiovascular: No history of cardiovascular symtoms or problems. No history of angina, CHF, OK, cardiac surgery of stents. Respiratory: Negative for current cough, dyspnea. No hx of pneumonia in the past six weeks Gastrointestinal: No history of GERD, PUD, abd pain, difficulty swallowing, GI bleed. Renal: Negative for renal failure and No history of dialysis Musculoskeletal: Negative for joint pain or swelling, back pain or muscle pain. Skin: Negative for lesions, rash and itching. Psychological: No history of psychiatric symptoms or problems. Neurologic: No history of TIA's, stroke, [employer] SU[employer]VISOR tumor, impaired sensorium, hemiplegia, paraplegia or quadriplegia. No neurological symptoms or problems. Hematology/Oncology: No history of bleeding or clotting disorder. Pt is not taking anti-coagulation or platelet medications. No history of hematological symptoms or problems. Endocrine: No history of endocrinological symtoms or problems No history of DM; has not taken steroids w/in past 30 days. Negative for excessive sweating, thirst or hunger PHYSICAL EXAMINATION: General Appearance/ Constitutional: Well developed, well nourished, and in no apparent distress HEENT: Not examined Neck: Lymph Nodes: Not examined Cardiac: Normal Breast: Not examined Pulmonary: Ascultation: Normal Effort: Normal GI: Soft and Non-tender Peripheral Vascular: Not examined Extremities: Cyanosis absent, Clubbing absent and Edema absent Skin: Normal Neurologic: Grossly non-focal, Alert and oriented and Affect appropriate [facility] Recurrent UTI Step Prevention Program: Takes 6 months before it is fully ineffect! This is not a treatment program for each time you may get a breakthrough infection in the future or while you are waiting for the prevention program to take effect over the next 6 months. Your primary care team will treat any breakthrough infections or provide refills for any of my suggestions below. The following is the recommended treatment to PREVENT recurrent urinary tract infections. 1) Topical estrogen cream for atrophic vaginitis: estrace cream fingertip application every other night 2) Probiotics: take any brand once daily: Try the brand Align but change brands every 6 months 3) A good bowel regimen to promote a BM each day or by every 3rd day 4) For break through infections over the next 6 months, use a 3 day course of Macrobid in which you use 1 pill 2 x a day for 3 days; if symptoms persists and you think you have a UTI, contact your PCP provider. 5) You may use AZO as directed as an OTC bladder pain relief when you have a breakthrough UTI; I think aspirin or Motrin/Aleve OTC is useful as well during an active infection Patient Information: Topical estrogen cream is recommended to restore the vaginal epithelium to its pre menopausal state. With a decrease in estrogen after menopause, the vaginal environment changes. This can lead to increased itchiness, dryness, and irritation. The environment becomes more basic/alkaline to a pH of 6.0 to 7.5. Normally the pH level is around 3.5 to 4.5. A different bacterial sarah then begins to colonize the vagina which can lead to increased urinary tract infections. In order to re-establish the good bacteria sarah, it is important to get the vaginal epithelium back to its pre menopausal state. This can be done with topical estrogen cream. A pea sized amount on the tip of the finger used every other night can do this. It takes about six months for the environment to become hospitable to good bacteria. During this time your doctor may or may not also prescribe a low dose daily antibiotic to decrease your chance of infections. Side effects of topical estrogen use include breast tenderness, vaginal bleeding or spotting, nonphysiologic discharge, vaginal irritation, burning and itching. If you have a history of deep vein thrombosis, pulmonary embolism, uterine cancer or estrogen receptor positive breast cancer, you may want to discuss this with your doctor prior to starting topical estrogen use. Histology slides of vaginal epithelium without estrogen then with estrogen supplementation. Epi stands for epithelium. Progress and Prospects in Treating Postmenopausal Vaginal atrophy. Clinical pharmacology ANDamp; Therapeutics, Vol 89 Number 1, October 2010 Probiotics also helps in re-establishing the good bacteria in the vaginal sarah. Numerous probiotics are available over the counter to use. This can also help with establishing a good bowel regimen. Given the bowel's close proximity to both the vagina and urethra/bladder, it is important to have regular bowel movements to decrease voiding symptoms and also decrease the risk of urinary tract infections. A good bowel regimen help with decreasing colonic sarah in the perineal area. This can be done with stool softeners available over the counter to gentle laxatives such as miralax. We would suggest avoiding ocean transportation intermediary use of laxatives though and if you would like a consult with gastroenterology for additional evaluation please ask. Along with these three strategies to prevent recurrent infections, your doctor may add additional strategies tailored to your situation. We are commonly asked whether taking cranberry extract will prevent urinary tract infections. Based on the most recent [place] Review evaluating cranberries and the prevention of urinary tract infections, there is no clear evidence to suggest that cranberries effectively prevents urinary tract infections. Supplements with cranberry extracts have not been studied in a standardized fashion to suggest a benefit to using these daily. As such, we do not include using cranberry extract as part of our regimen to decreasing recurrent urinary tract infections. ADDITIONAL DATA REVIEWED: Most recent imaging Most recent labs Results for orders placed or performed in visit on 12/24/17 UA DIP, URINE (POC) Result Value Ref Range GLUCOSE UA (POCT) Negative Neg mg/dL BILIRUBIN UA (POCT) Negative Neg KETONE UA (POCT) Negative Neg mg/dL SPECIFIC GRAVITY UA (POCT) 1.025 1.005 - 1.030 HEMOGLOBIN/BLOOD UA (POCT) Small (A) Neg PH UA (POCT) 6.5 4.5 - 8 PROTEIN UA (POCT) Negative Neg mg/dL UROBILINOGEN UA (POCT) 0.2 Normal(ANDlt;1.1) E.U./dL NITRITE UA (POCT) Negative Neg LEUKOCYTES UA (POCT) Negative Neg COLOR UA (POCT) Yellow CLARITY UA (POCT) Clear RADIOLOGY: N/A Risk of complication and/or Morbidity or Mortality: LOW DISEASE SPECIFICITY: Diagnosis: Atrophic Vaginitis Acuity: Chronic Severity: Mild Anatomic Site: Bladder, Laterality: N/A Urethra, Laterality: Not applicable Vagina, Laterality: N/A Underlying Condition/Causal Agent: Primary Associated Conditions/Manifestations: S/p Hysterectomy and decreased Estrogen IMPRESSION / PLAN: ANDgt; History of Urinary urgency and Frequency ANDgt; Negative for UTI - ve culture ANDgt; Lots of Pressure not really painful ANDgt; s/p Hysterectomy ANDgt; Possible atrophic Vaginitis ANDgt; Trial of UTI Prevention protocol as above ANDgt; Rx for Premarin escripted ANDgt; AZO ok I spent approximately 40 minutes in this visit, with more than 50% of the time devoted to patient discussion, counseling, review of records and/or coordination of care. Tara Olvera, NGAS, MT, PA-C Referring Provider: PADMINI SPAULDING ([facility]) [[id number]] Allergies As of Date: 12/24/2017 (No Known Allergies) Date Reviewed: 12/24/2017 Reviewed by: Maryse Gould Ma - Fully Assessed Reason for Visit: New Patient [172] Urinary Frequency [1086] Primary Visit Diagnosis:Atrophic vaginitis [N95.2] Other Visit Diagnosis:Urinary frequency [R35.0] Order(s):UA DIP, URINE (POC) [8490913] Order #: [id number] #:[id number] conjugated estrogens (PREMARIN) vaginal cream1 finger- tip sized application every other eveningDisp: 1 TubeRfl: 3 Prescriptions as of 12/24/2017 Sig: CHOLECALCIFEROL (VITAMIN D3) * Take 1 tablet by mouth once d* FLUOXETINE 10 MG CAPSULE Take 1 capsule by mouth once * HYDROCHLOROTHIAZIDE 12.5 MG C* Take 1 capsule by mouth once * CELECOXIB 200 MG CAPSULE Take 1 capsule by mouth once * METOPROLOL SUCCINATE ER 100 M* Take 1 tablet by mouth once d* CPAP AutoPAP 10-20 cmH2O, suitable* CONJUGATED ESTROGENS 0.625 MG* 1 finger- tip sized applicati* BUPROPION XL 150 MG TAB Take 1 tablet by mouth once d* POTASSIUM CHLORIDE ER 10 MEQ * TAKE 1 TABLET DAILY WITH LOY* Problem List As Of Date 12/24/2017 Noted Resolved Hypertension [I10] INVALID FOR* Anxiety [F41.9] INVALID FOR* ZEYNPE (obstructive sleep apnea) [G47.33] INVALID FOR* More... Obesity [E66.9] INVALID FOR* Hypersomnia [G47.10] INVALID FOR* Hypercholesterolemia [E78.00] INVALID FOR* Elevated serum creatinine [R79.89] INVALID FOR* Elevated fasting glucose [R73.01] INVALID FOR* Prescriptions ordered this encounter Disp Refills Start End CONJUGATED ESTROGENS 0.625 MG/GRAM V* 1 Tu* 3 12/24/2017 12/24/2017 Route: VAGINAL Sig: Use 0.5 g vaginally once daily. CONJUGATED ESTROGENS 0.625 MG/GRAM V* 1 Tu* 3 12/24/2017 Si finger- tip sized application every other evening Medications Discontinued During This Encounter conjugated estrogens (PREMARIN) vagi* 1 Tu* 3 12/24/2017 12/24/2017 Route: VAGINAL Sig: Use 0.5 g vaginally once daily. Disc: Reason for discontinue is not on file. Disposition: Return in about 3 months (around 03/26/2018). Follow-up and Disposition History Recorded Encounter Status:Closed by TARA OLVERA PA-C on 12/24/17 PROGRESS Observed: 11/25/2017 Status: COMPLETED Source: [place] 9:57 [facility] REPOSITORY HNO ID: [id number] Author: Padmini Vidal (Wafer Fab Operator) FIONA Spaulding Service: (none) Author Type: Nurse Practitioner Type: Progress Notes Filed: 11/25/2017 10:12 AM Note Text: HPI/CC: Ramona Villegas is a 57 year old female who presents for F/U 3 Month. Continues to have lower abdominal pressure that worsens at HS, + urinary frequency since Nov. Was seen by COMPUTER GAME TESTER w/u completed. Recommended elimination diet for interstitial cystitis. BP: reports elevated BP at home. Taking BP almost daily. Denies CP,SOB, palpitations, headaches, change in urination, blurred vision, dizziness, lightheadedness. BPs at home [id number] DBP 61-94. Concerned that her BP cuff may not be correct. Anxiety: Continues to have decreased energy. Taking all meds at HS. Denies SE of medications. ROS as above, otherwise non-contributory. Reviewed labs with patient: Component Latest Ref Rng AND Units 11/22/2017 Protein, Total 6.3 - 8.0 g/dL 7.4 Albumin 3.9 - 4.9 g/dL 4.2 Calcium 8.5 - 10.2 mg/dL 8.5 Bilirubin, Total 0.2 - 1.3 mg/dL 0.7 Alkaline Phosphatase 32 - 117 U/L 84 AST 13 - 35 U/L 23 Glucose 74 - 99 mg/dL 92 BUN 7 - 21 mg/dL 16 Creatinine 0.58 - 0.96 mg/dL 1.14 (H) Sodium 136 - 144 mmol/L 144 Potassium 3.7 - 5.1 mmol/L 3.3 (L) Chloride 97 - 105 mmol/L 103 CO2 22 - 30 mmol/L 25 Anion Gap 9 - 18 mmol/L 16 ALT 7 - 38 U/L 28 eGFR- 60 eGFR-All Other Races . 49 Cholesterol, Total <200 mg/dL 247 (H) Triglyceride <150 mg/dL 209 (H) HDL Cholesterol >39 mg/dL 51 LDL Cholesterol <100 mg/dL 154 (H) Non HDL Cholesterol <130 mg/dL 196 (H) Fasting Time hrs 4 VLDL Cholesterol <30 mg/dL 42 (H) TC:HDL Ratio <5.10 4.84 LDL:HDL Ratio <2.54 3.02 (H) Hemoglobin A1C 4.3 - 5.6 % 5.2 Estimated Average Glucose mg/dL 103 Reviewed PMHx, PSHx, social Hx, medications and allergies. PHYSICAL EXAMINATION: BP 110/70 (BP Site: Left Arm, BP Position: Sitting, BP Cuff Size: Large Adult) Pulse 60 Resp 18 Wt 113.9 kg (251 lb) LMP 07/25/2015 BMI 40.51 kg/m2 General appearance: Well appearing, alert, in no acute distress, well-hydrated, well nourished., Obese Skin: Skin color, texture, turgor normal, no suspicious rashes or lesions ASSESSMENT/PLAN: 1. Anxiety - ICD9: 300.00, ICD10: F41.9 (primary diagnosis) - FLUOXETINE 10 MG CAPSULE- change from paxil to prozac 2. Urinary frequency - ICD9: 788.41, ICD10: R35.0 3. Interstitial cystitis - ICD9: 595.1, ICD10: N30.10 - CONSULT TO UROLOGY 4. Essential hypertension - ICD9: 401.9, ICD10: I10 - suboptimal control - Recommended regular aerobic exercise. - Recommend home blood pressure monitoring, to bring results in on next visit - Needs NV for BP cuff validation - Goal of BP <140/90 5. Fatigue, unspecified type - ICD9: 780.79, ICD10: R53.83 - VITAMIN D 25 HYDROXY - TSH BLD - T4 FREE/FREE THYROX - T3 BLD - f/u in 4-6 weeks Padmini Spaulding CNP VITAMIN D 25 HYDROXY Collected: 11/25/2017 Status: F Source: [place] 9:29 AM [facility] REPOSITORY TYPE CODE TESTS RESULT OUT OF REFERENCE UNITS RANGE LAB VITD 31.0-80.0 ng/mL Low Vitamin D 25 22.7 Hydroxy Result Comment: Classification of 25 [place] Vitamin D status: Insufficiency/Moderate Deficiency: < or = 30 ng/mL Sufficiency/Optimal Levels: 31 to 80 ng/mL Toxicity: > 100 ng/mL Test performed by chemiluminescent immunoassay. Performed By: #### VITD, FT4, T3, TSH #### [facility] [address] [place], [place] [address] FREE T4 Collected: 11/25/2017 Status: F Source: [place] 9:29 AM [facility] REPOSITORY TYPE CODE TESTS RESULT OUT OF RANGE REFERENCE UNITS LAB FT4 0.9-1.7 ng/dL Free T4 1.0 Performed By: #### VITD, FT4, T3, TSH #### [facility] [address] [place], [place] [address] T3 Collected: 11/25/2017 Status: F Source: [facility] 9:29 AM [facility] REPOSITORY TYPE CODE TESTS RESULT OUT OF RANGE REFERENCE UNITS LAB T3 79-165 ng/dL T3 85 Performed By: #### VITD, FT4, T3, TSH #### [facility] [address] [place], [place] [address] TSH Collected: 11/25/2017 Status: F Source: [place] 9:29 AM [facility] REPOSITORY TYPE CODE TESTS RESULT OUT OF RANGE REFERENCE UNITS LAB TSH 0.400-5.500 uU/mL TSH 1.550 Performed By: #### VITD, FT4, T3, TSH #### [place] [address] COMP METABOLIC PANEL Collected: 11/22/2017 Status: F Source: [place] 5:25 PM [facility] REPOSITORY TYPE CODE TESTS RESULT OUT OF REFERENCE UNITS RANGE LAB TP 6.3-8.0 g/dL Protein, Total 7.4 LAB ALB 3.9-4.9 g/dL Albumin 4.2 LAB CA 8.5-10.2 mg/dL Calcium, Total 8.5 LAB TBIL 0.2-1.3 mg/dL Bilirubin, Total 0.7 LAB ALKP 32-117 U/L Alkaline Phosphatase 84 LAB AST 13-35 U/L AST 23 LAB GLU 74-99 mg/dL Glucose 92 Result Comment: The [place] Diabetes Association (ADA) provides guidance for cutoff values for fasting glucose and random glucose. The ADA defines fasting as no caloric intake for at least 8 hours. Fas ting plasma glucose results between 100 to 125 mg/dL indicate increased risk for diabetes (prediabetes). Fasting plasma glucose results greater than or equal to 126 mg/dL meet the criteria for diagnosis of diabetes. In the absence of unequivocal hyperglycemia, results should be confirmed by repeat testing. In a patient with classic symptoms of hyperglycemia or hyperglycemic crisis, random plasma glucose results greater than or equal to 200 mg/dL meet the criteria for diagnosis of diabetes. Reference: Standards of Medical Care in Diabetes 2016, [place] Diabetes Association. Diabetes Care. 2016.39(Suppl 1). LAB BUN 7-21 mg/dL BUN 16 LAB CRET 0.58-0.96 mg/dL Creatinine High 1.14 LAB NA 136-144 mmol/L Sodium 144 LAB K 3.7-5.1 mmol/L Low Potassium 3.3 LAB CL 97-105 mmol/L Chloride 103 LAB CO2 22-30 mmol/L CO2 25 LAB AGAP 9-18 mmol/L Anion Gap 16 LAB ALT 7-38 U/L ALT 28 LAB GFRAA eGFR- Amer. 60 LAB GFRNAA . eGFR-All Other Races 49 Result Comment: eGFR (Estimated GFR) Units of measure: mL/min/1.73 meters squared eGFR is derived from the reexpressed MDRD Study equation using the following parameters: serum creatinine, age, gender and race. The creatinine assay has been calibrated to be traceable to IDMS. An eGFR <60 mL/min/1.73m2 for >3 months is consistent with chronic kidney disease. Refer to KDOQI guidelines for clinical interpretation. In patients with unstable renal function, e.g. those with acute kidney injury, the eGFR may not accurately reflect actual GFR. Performed By: #### CMP, LIPB, HBA1C #### [facility] [address] [place], [place] [address] LIPID PANEL, BASIC Collected: 11/22/2017 Status: F Source: [place] 5:25 PM [facility] REPOSITORY TYPE CODE TESTS RESULT OUT OF REFERENCE UNITS RANGE LAB CHOL <200 mg/dL Cholesterol High 247 Result Comment: <200 mg/dL, Desirable 200-239 mg/dL, Borderline high >239 mg/dL, High LAB TRIGLY <150 mg/dL Triglyceride High 209 Result Comment: <150 mg/dL, Normal 150-199 mg/dL, Borderline high 200-499 mg/dL, High >499 mg/dL, Very high LAB HDL >39 mg/dL HDL-Cholesterol 51 Result Comment: 40-59 mg/dL, Acceptable >59 mg/dL, High: Negative risk factor for coronary heart disease <40 mg/dL, Low: Positive risk factor for coronary heart disease LAB LDL <100 mg/dL LDL-Cholesterol High 154 Result Comment: <100 mg/dL, Optimal 100-129 mg/dL, Near optimal/above optimal 130-159 mg/dL, Borderline high 160-189 mg/dL, High >189 mg/dL, Very high Secondary prevention optimal LDL Cholesterol levels are recommended to be < 70 mg/dL LAB NONHDL <130 mg/dL Non HDL High Cholesterol 196 Result Comment: <130 mg/dL, Optimal 130-159 mg/dL, Near optimal/above optimal 160-189 mg/dL, Borderline high 190-219 mg/dL, High >219 mg/dL, Very high Secondary prevention optimal non HDL Cholesterol levels are recommended to be < 100 mg/dL LAB FT hrs Fasting Time 4 LAB VLDL <30 mg/dL High VLDL Cholesterol 42 LAB TCHDL <5.10 TC:HDL Ratio 4.84 LAB LDLHDL <2.54 High LDL:HDL Ratio 3.02 Result Comment: Reference: 1. National Cholesterol Education Program ATP III Guideline At-A-Glance Quick Desk Reference: National Heart, Lung, and Blood Gordon. National Institutes of Health. 2001: NIH Publication No. 01-3305. 2. An International Atherosclerosis Society position paper: global recommendations for the management of dyslipidemia: executive summary, Atherosclerosis. 2014: 232(2):410-413. Performed By: #### CMP, LIPB, HBA1C #### [facility] [address] [place] [address] HEMOGLOBIN A1C Collected: 11/22/2017 Status: F Source: [place] 5:25 PM [facility] REPOSITORY TYPE CODE TESTS RESULT OUT OF REFERENCE UNITS RANGE LAB HGBA1C 4.3-5.6 % Hemoglobin A1c 5.2 LAB HBA0 mg/dL Est. Average Glucose 103 Result Comment: eAG: (Estimated average glucose) is a calculated value from HgbA1c and is medical field representative of the average blood glucose level in the last 2-3 month period. Performed By: #### CMP, LIPB, HBA1C #### [facility] [address] [place], [place] [address] SURGICAL PATHOLOGY Observed: 11/03/2017 Status: F Source: [place] 10:37 AM [facility] REPOSITORY Specimen originated from [facility] Specimen #: [id number] Submitting Physician: DEIDRE WILSON MD FINAL DIAGNOSIS Endometrium, biopsy - Segments of benign superficial endometrial epithelium. - Segments of benign endocervix with squamous metaplasia. Sanam Holley M.D. (Electronic Signature) SPECIMEN SUBMITTED A: ENDOMETRIAL, BIOPSY CLINICAL DATA thickened endometrium GROSS DESCRIPTION A. Received in formalin are multiple giles, soft feathery segments of tissue aggregating to 2.2 x 1.0 x 0.1 cm. Totally submitted in one cassette. Gross examination performed at [facility], [address] [place] [address] MM 11/03/2017 10:28:55 PM Date of Report: 11/04/2017 Date of Procedure: 11/03/2017 Date of Receipt: 11/03/2017 Submitted by: DEIDRE WILSON MD Location: [facility] Diagnostic interpretation performed at [facility], [address] [place] [address]. CNOV Observed: 11/03/2017 Status: COMPLETED Source: [place] 10:20 AM [facility] REPOSITORY Office Visit (WOOB) RAMONA VILLEGAS ([id number]) 1960 F Date Time Provider Department 11/03/17 10:20 AM DEIDRE GUERRERO WOKEIRA During your visit today, we recorded the following information about you: Blood pressure Weight 134/90 112.9 kg Deidre Nickerson MD 11/03/2017 10:37 AM Signed Ramona Villegas is a 57 year old female who presents today for an endometrial biopsy for thickening of endometrial lining pelvic pain test: n/a UNIVERSAL PROTOCOL / SAFETY CHECKLIST Procedure to be performed: EMB Sign in Communication: Completed Time Out: Team Confirms the Correct Patient, Correct Procedure, Correct Site and Site Marking, Correct Position (if applicable), Prep and Dry Time (if applicable). Time: 10:32 Affirmation of Time Out: YES Sign Out Discussion: Completed PROCEDURE: EXTERNAL GENITALIA: Normal in appearance without lesions VAGINA: Normal in appearance without lesions BIOPSY: Speculum placed into the vagina with excellent visualization of the cervix. Cervix cleaned with betadine. Uterus sounded to 8.5 cm. Pipelle inserted into the uterus without difficulty and endometrial biopsy obtained. Specimen labeled and sent to pathology. Hemostasis achieved. Procedure Summary: Patient tolerated procedure well. ASSESSMENT: thickening of endometrial lining, pelvic pain PLAN: Specimens labeled and sent to Pathology. Will notify patient of results in 1-2 weeks. MD Mer Barnard Ma 11/03/2017 10:16 AM Signed YOUR RECOVERY After your biopsy you may have: ? Vaginal bleeding (less than a normal menstrual period) ? Mild cramping Do NOT put anything in the vagina for 1 week after your endometrial biopsy. This includes: ? tampons ? douches ? and refraining from having sexual intercourse If you have any discomfort, you may take an over the counter pain medication (motrin, advil, ibuprofen, tylenol, etc). If this does not relieve your discomfort, contact the office. It is okay to wear a sanitary pad until the discharge and spotting stops. RISKS Although problems seldom occur with endometrial biopsies, there can be some complications. You may feel faint during and shortly after the procedure as well as have some bleeding after the procedure. There is also a risk of infection after the procedure. These complications are rare and can be easily treated. You should contact you doctor is you have any of the following: ? Heavy bleeding (more than your normal period) ? Bleeding with clots ? Severe abdominal pain ? Fever (more than 100.4F) ? Foul smelling vaginal discharge RESULTS We will have the results of your biopsy in 1-2 weeks. If you do not hear the results of your biopsy after 2 weeks, please contact the office for the results. If you have any additional questions or concerns please do not hesitate to contact the office. Referring Provider: DEIDRE GUERRERO [[id number]] Allergies As of Date: 11/03/2017 (No Known Allergies) Date Reviewed: 11/03/2017 Reviewed by: Mer Falcon Ma - Fully Assessed Reason for Visit: Endometrial Biopsy [7501] Primary Visit Diagnosis:Thickened endometrium [R93.8] Order(s):ENDOMETRIAL BIOPSY [[id number]] Order #: [id number] SURGICAL PATHOLOGY [[id number]] Order #: [id number] Prescriptions as of 11/03/2017 Sig: PAROXETINE 10 MG TABLET TAKE 1 TABLET DAILY (TAPERING* MISOPROSTOL 200 MCG TABLET Take 2 tab PO night before pr* PAROXETINE 10 MG TABLET Take 1 tablet by mouth once d* HYDROCHLOROTHIAZIDE 12.5 MG C* Take 1 capsule by mouth once * BUPROPION XL 150 MG TAB Take 1 tablet by mouth once d* CELECOXIB 200 MG CAPSULE Take 1 capsule by mouth once * METOPROLOL SUCCINATE ER 100 M* Take 1 tablet by mouth once d* POTASSIUM CHLORIDE ER 10 MEQ * TAKE 1 TABLET DAILY WITH LOY* CPAP AutoPAP 10-20 cmH2O, suitable* Problem List As Of Date 11/03/2017 Noted Resolved Hypertension [I10] INVALID FOR* Anxiety [F41.9] INVALID FOR* ZEYNEP (obstructive sleep apnea) [G47.33] INVALID FOR* More... Obesity [E66.9] INVALID FOR* Hypersomnia [G47.10] INVALID FOR* Hypercholesterolemia [E78.00] INVALID FOR* Elevated serum creatinine [R79.89] INVALID FOR* Elevated fasting glucose [R73.01] INVALID FOR* Other instructions from your clinician: YOUR RECOVERY After your biopsy you may have: ? Vaginal bleeding (less than a normal menstrual period) ? Mild cramping Do NOT put anything in the vagina for 1 week after your endometrial biopsy. This includes: ? tampons ? douches ? and refraining from having sexual intercourse If you have any discomfort, you may take an over the counter pain medication (motrin, advil, ibuprofen, tylenol, etc). If this does not relieve your discomfort, contact the office. It is okay to wear a sanitary pad until the discharge and spotting stops. RISKS Although problems seldom occur with endometrial biopsies, there can be some complications. You may feel faint during and shortly after the procedure as well as have some bleeding after the procedure. There is also a risk of infection after the procedure. These complications are rare and can be easily treated. You should contact you doctor is you have any of the following: ? Heavy bleeding (more than your normal period) ? Bleeding with clots ? Severe abdominal pain ? Fever (more than 100.4F) ? Foul smelling vaginal discharge RESULTS We will have the results of your biopsy in 1-2 weeks. If you do not hear the results of your biopsy after 2 weeks, please contact the office for the results. If you have any additional questions or concerns please do not hesitate to contact the office. Encounter Status:Closed by DEIDRE WILSON MD on 11/03/17 PROGRESS Observed: 11/03/2017 Status: COMPLETED Source: [place] 10:16 AM [facility] REPOSITORY O ID: [id number] Author: Deidre Wilson Service: (none) Author Type: Physician Type: Progress Notes Filed: 11/03/2017 10:37 AM Note Text: Ramona Villegas is a 57 year old female who presents today for an endometrial biopsy for thickening of endometrial lining pelvic pain test: n/a UNIVERSAL PROTOCOL / SAFETY CHECKLIST Procedure to be performed: EMB Sign in Communication: Completed Time Out: Team Confirms the Correct Patient, Correct Procedure, Correct Site and Site Marking, Correct Position (if applicable), Prep and Dry Time (if applicable). Time: 10:32 Affirmation of Time Out: YES Sign Out Discussion: Completed PROCEDURE: EXTERNAL GENITALIA: Normal in appearance without lesions VAGINA: Normal in appearance without lesions BIOPSY: Speculum placed into the vagina with excellent visualization of the cervix. Cervix cleaned with betadine. Uterus sounded to 8.5 cm. Pipelle inserted into the uterus without difficulty and endometrial biopsy obtained. Specimen labeled and sent to pathology. Hemostasis achieved. Procedure Summary: Patient tolerated procedure well. ASSESSMENT: thickening of endometrial lining, pelvic pain PLAN: Specimens labeled and sent to Pathology. Will notify patient of results in 1-2 weeks. Deirde Nickerson MD ALLERGIES ALLERGIES DATE TYPE / CODE NAME / CODE REACTION SEVERITY SOURCE 09/26/2018 Drug No Known Unknown [facility] Allergy/416 Allergies/[id number] Hospital [id number](SNOM 0388(RXNORM) Repository ED CT) Drug NO KNOWN [facility] Class/17348 ALLERGIES [place] 1003(SNOMED Repository CT) ENCOUNTERS ENCOUNTERS ADMIT/DISCHARGE ACCOUNT ADMITTING ENCOUNTER LOCATION SOURCE NUMBER CLASS 09/27/2018/09/27/20 [id number] Ambulatory [address] ing:SDCRoom: Repository AC07 09/13/2018/09/14/20 [id number] Ambulatory [address] [place] Repository 09/13/2018 [id number] Ambulatory [facility] ing:CT Repository 09/02/2018/09/02/20 [id number] Ambulatory [address] [place] Repository 09/02/2018/09/02/20 [id number] Ambulatory [address] [place] Repository 08/22/2018/08/22/20 [id number] Ambulatory [address] [place] Repository 08/22/2018/08/22/20 [id number] Ambulatory [address] [place] Repository 08/22/2018/08/24/20 [id number] Ambulatory [address] [place] Repository 08/13/2018/09/03/20 [id number] Ambulatory [address] [place] Repository 08/06/2018/08/06/20 [id number] Ambulatory [address] [place] Repository 08/03/2018/08/03/20 [id number] Ambulatory [place] [facility] [place] Repository 06/03/2018/06/03/20 [id number] Ambulatory B[place]Building:[place] Repository 05/29/2018/05/29/20 [id number] Emergency [address] ing:ED Repository 05/27/2018/05/27/20 [id number] Emergency [address] ing:ED Repository 05/05/2018/05/06/20 [id number] Ambulatory [address] [place] Repository 04/12/2018/04/14/20 [id number] Ambulatory [address] [place] Repository 03/02/2018/03/04/20 [id number] Ambulatory [address] [place] Repository 01/11/2018/01/13/20 [id number] Ambulatory [address] [place] Repository 01/02/2018/01/03/20 [id number] Ambulatory [address] [place] Repository 12/24/2017/03/02/20 [id number] Ambulatory [address] [place] Repository 12/04/2017/12/04/19 [id number] Ambulatory [address] [place] Repository 11/25/2017/11/25/19 [id number] Ambulatory [address] [place] Repository 11/25/2017/11/25/19 [id number] Ambulatory [address] [place] Repository 11/22/2017/11/22/19 [id number] Ambulatory [address] Repository 11/03/2017/11/16/19 [id number] Ambulatory [address] Repository PAYERS PAYERS ENCOUNTER GUARANTOR PAYER SUBSCRIBER SOURCE 09/27/2018 RAMONA Porter Primary RAMONA J Oswaldo [id number] Insurance:[employer]ES[employer]P YODERDOB: [facility] Number: [id number] [place], [place] [id number] Repository [id number]: [phone]) Date:3864-35-33AK [phone] () [address] [place] [address]MA: 09/27/2018 Secondary NOT GIVENUNK [place] Insurance:SELF PAY [facility] Number: Effective Repository Date:2018-09-21 09/13/2018 RAMONA Porter Primary RAMONA J [place] [id number] [facility]: [facility] Number: [id number] [place], [place] [id number] Repository [address]Itd: ([phone]) Date:0478-28-41XG [phone] () [address] [place] [address]TI: 09/13/2018 Secondary NOT GIVENUNK Oswaldo Insurance:SELF PAY [facility] Number: Effective Repository Date:2018-09-07 06/03/2018 RAMONA J Primary RAMONA J [place] [id number] Insurance:[employer] YODERDOB: [facility] [id number] [place], [place] Number: Repository [id number]: [phone] [id number] [phone] (HP) Date:0464-81-33EJ [address], [place] [address]SX: 06/03/2018 Secondary NOT GIVENUNK [place] Insurance:SELF PAY [facility] Number: Effective Repository Date:2018-06-02 05/29/2018 RAMONA J Primary RAMONA J [place] [id number] Insurance:[employer] YODERDOB: [facility] [id number] [place], [place] Number: Repository [id number]: [phone] [id number] [phone] (HP) Date:6174-77-83DM [address]DUBLAYNEWest [place], [place] [address]ON: 05/29/2018 Secondary NOT GIVENUNK [place] Insurance:SELF PAY [facility] Number: Effective Repository Date:2018-05-29 05/27/2018 RAMONA J Primary RAMONA J [place] [id number] Insurance:[employer] YODERDOB: [facility] [id number] [place], [place] Number: Repository [id number]: [phone] [id number] [phone] (HP) Date:9692-84-44CU [address]UB[place], [place] [address]JH: 05/27/2018 Secondary NOT GIVENUNK Oswaldo Insurance:SELF PAY [facility] Number: Effective Repository Date:2018-05-27
== END 2018-09-27 17:39 | disposition home or self-care (01) ==
LOC: SDC 11:25 → AC 11:27
PROVIDERS: Obstetrics & Gynecology; Family Provider Student in an Organized Health Care Education/Training Program; PCP Student in an Organized Health Care Education/Training Program; Referring Provider Urology; Visit Provider Urology
PROC: 0TJ98ZZ Inspection of Ureter, Via Natural or Artificial Opening Endoscopic (ICD-10-PCS; CPT 52352; principal; 2018-09-27 12:55)
PROC: 0UDB8ZZ Extraction of Endometrium, Via Natural or Artificial Opening Endoscopic (ICD-10-PCS; CPT 58558; 2018-09-27 12:55)
DX: N95.0 Postmenopausal bleeding (principal); N20.1 Calculus of ureter; F41.9 Anxiety disorder, unspecified; F32.9 Major depressive disorder, single episode, unspecified; Z79.899 Other long term (current) drug therapy; I10 Essential (primary) hypertension; M19.90 Unspecified osteoarthritis, unspecified site; R39.15 Urgency of urination
CPT/HCPCS: 52356; 58558; 36415; 76000; 82360; 84703; 85027; 85610; 85730; 86850; 86900; 88300; 88305; J7120; C1769; C2617; J2405

== ENCOUNTER → 2019-05-24 | Outpatient (CLI) | payer OTHER, SELFPAY ==
[2018-09-27 11:50] VITALS: BMI 40.6
--- NOTE | 2019-05-24 06:48 | CT_ITS ---
STUDY: CT ABDOMEN AND PELVIS WITHOUT CONTRAST REASON FOR EXAM: Female, 58 years old. History of kidney stones. Lithotripsy on the left. Back pain x3 weeks RADIATION DOSAGE (If Supplied By Facility): CTDIvol = ( 26.73 ) mGy, DLP = ( 1409.08 ) mGycm TECHNIQUE: Transaxial images were obtained from the dome of the diaphragm to the symphysis pubis without oral contrast, and without intravenous contrast. Sagittal and coronal images were reconstructed. Individualized dose optimization techniques were used for this CT. COMPARISON: September 13, 2018 FINDINGS: The visualized lung bases are unremarkable. The visualized portions of the heart are within normal limits. There is decreased attenuation of the liver consistent with steatosis. Normal gallbladder and extrahepatic biliary system. Normal spleen. Normal pancreas. Normal bilateral adrenal glands. Normal right kidney. There is moderate cortical atrophy of the left kidney, consistent with chronic medical renal disease. No evidence of obstruction or stones bilaterally There is a small hiatal hernia. Normal small intestine. Normal colon. The appendix is visualized and appears normal. Normal abdominal aorta. Normal inferior vena cava. Normal retroperitoneum. Normal urinary bladder. Normal visualized uterus. There is a small umbilical hernia containing fat. There are diffuse degenerative changes of the visualized lumbar spine. CT/Abdomen/Pelvis without Cont IMPRESSION: Moderate atrophy of the left kidney, unchanged from exam in 2018. No evidence of stones or hydronephrosis bilaterally. Electronically Signed: Adam Steel DO at 13:55 EDT Tel , Service support ,
== END | disposition home or self-care (01) ==
LOC: CT 06:45
PROVIDERS: Family Provider Student in an Organized Health Care Education/Training Program; PCP Student in an Organized Health Care Education/Training Program; Referring Provider Urology; Visit Provider Urology
DX: N20.0 Calculus of kidney (principal)
CPT/HCPCS: 74176

== ENCOUNTER → 2020-04-18 16:04 | Outpatient (CLI) | payer OTHER, SELFPAY ==
[2018-09-27 11:50] VITALS: BMI 40.6
== END ==
PROVIDERS: PCP Student in an Organized Health Care Education/Training Program; Referring Provider Urology; Visit Provider Urology
DX: R30.0 Dysuria (principal)
CPT/HCPCS: 87086; 87088

== ENCOUNTER → 2020-09-12 | Outpatient (CLI) | payer OTHER, SELFPAY ==
[2018-09-27 11:50] VITALS: BMI 40.6
[2020-09-18 15:52] LABS: HPV Reflexed? NOT INDICATED
== END | disposition home or self-care (01) ==
LOC: LABSPEC 14:44
PROVIDERS: PCP Student in an Organized Health Care Education/Training Program; Visit Provider Obstetrics & Gynecology
DX: Z12.4 Encounter for screening for malignant neoplasm of cervix (principal)
CPT/HCPCS: 88175; G0145

== ENCOUNTER → 2023-04-28 | Outpatient (CLI) | payer OTHER, SELFPAY ==
[2023-05-03 13:13] LABS: HPV APTIMA, High Risk Negative (Negative)
== END | disposition home or self-care (01) ==
LOC: LABSPEC 15:45
PROVIDERS: PCP Student in an Organized Health Care Education/Training Program; Visit Provider Obstetrics & Gynecology
DX: Z12.4 Encounter for screening for malignant neoplasm of cervix (principal)
CPT/HCPCS: 87624; 88175; G0145

== ENCOUNTER 2023-11-15 17:52 | Observation (INO) | payer OTHER, SELFPAY ==
[2023-11-15 17:54] VITALS: BP 157/67; PULSE 62; RESP 18; TEMP 37.4; O2SAT 99
--- NOTE | 2023-11-15 18:00 | RAD_ITS ---
RAD/Knee 3 Views IMPRESSION: No acute abnormalities. Minimal, patellofemoral compartment predominant, tricompartmental degenerative arthrosis of the knee. Electronically Signed: Luis More MD at 18:36 EST ,
--- OUTSIDE RECORDS SUMMARY | 2023-11-15 21:45 | XMS RPT_ITS | CCD ---
Author Name Unknown Address [address] [facility] [address] [place] [address] Organization [facility] Care Team Providers Care Interior Design Faculty Member Name Role Phone Ted Monroe DO Primary Care Provider [phone] Ted Monroe DO Primary Care Provider Ismael JOHNSON MD, Jacoby Unavailable PROVIDER, UNKNOWN Referring Unavailable PROVIDER, UNKNOWN Primary Care Unavailable PROVIDER, UNKNOWN Primary Care Unavailable PROVIDER, UNKNOWN Referring Unavailable PROVIDER, UNKNOWN Primary Care Unavailable PROVIDER, UNKNOWN Referring Unavailable HARPER LOPEZ Referring Unavailable TED MONROE Primary Care Unavailable MASCI, ANDREW A Referring Unavailable JESSICA ANDREW A Attending Unavailable TED MONROE Primary Care Unavailable TED MONROE Primary Care Unavailable TED MONROE Referring Unavailable CORWIN DUPREE Attending Unavailable TED MONROE Primary Care Unavailable TED MONROE Referring Unavailable CORWIN DUPREE Attending Unavailable TED MONROE Primary Care Unavailable HAREPR LOPEZ Referring Unavailable MARIA VICTORIA CAMILO Attending Unavailable TED MONROE Primary Care Unavailable JACOBY GUEVARA MD Referring Unavailable JACOBY GUEVARA MD Attending Unavailable MONROETED SILVERMAN Primary Care Unavailable LESLEE, MARIA VICTORIA Referring Unavailable MONROETED SILVERMAN Primary Care Unavailable LESLEE, MARIA VICTORIA Referring Unavailable TED MONROE Primary Care Unavailable TED MONROE Primary Care Unavailable KEYANNA RAMIREZ Referring Unavailable TED MONROE Primary Care Unavailable KEYANNA RAMIREZ Referring Unavailable JM MCGUIRE Referring Unavailable TED MONROE Primary Care Unavailable DOUGLAS CAMILOCY Referring Unavailable TED MONROE Primary Care Unavailable HARPER LOPEZ Attending Unavailable TED MONROE Primary Care Unavailable TED MONROE Primary Care Unavailable DIANNE ALVARENGA Referring Unavailable JOHN, HARPER A Referring Unavailable JACOBY GUEVARA MD Attending Unavailable MONROE, TED Vidal Primary Care Unavailable JOHN, HARPER A Referring Unavailable MASCI, ANDREW Beltran Attending Unavailable MONROETED Primary Care Unavailable ROBLEDO, AMPARO Referring Unavailable MONROE, TED Vidal Primary Care Unavailable ROBLEDO, AMPARO Attending Unavailable MONROE, TED Vidal Primary Care Unavailable MARIA VICTORIA CAMILO Attending Unavailable MONROETED Primary Care Unavailable STANLEY PRESCOTT Referring Unavailable MONROE, TED Vidal Primary Care Unavailable MONROETED Primary Care Unavailable MONROETED Referring Unavailable MASCANDREW Wong Referring Unavailable MASCANDREW Wong Attending Unavailable MONROETED Primary Care Unavailable MASCI, ANDREW Beltran Referring Unavailable MONROE, TED Vidal Primary Care Unavailable MONROE, TED Vidal Primary Care Unavailable CORWIN DUPREE Referring Unavailable MONROE, TED Vidal Primary Care Unavailable CORWIN DUPREE Attending Unavailable MONROETED Primary Care Unavailable MONROETED Referring Unavailable MONROETED Primary Care Unavailable MARIA VICTORIA CAMILO Referring Unavailable MONROETED Primary Care Unavailable JOHN, HARPER A Attending Unavailable MONROETED Referring Unavailable MONROETED Primary Care Unavailable SARAH LINK Attending Unavailable JOHN, HARPER A Referring Unavailable MONROE, TED Vidal Primary Care Unavailable MARIA VICTORIA CAMILO Referring Unavailable JOHN, HARPER A Attending Unavailable JOHN, HARPER A Admitting Unavailable Medications Current Medications Medication Drug Class(es) Dates Sig (Normalized) Sig (Original) CPAP/BIPAP/OTHER (20 sources) Start: 12-31-2022 End: 05-17-2050 CPAP/BIPAP/OTHER Type .CPAPSettings into a note to see current settings/supplies/DM E information. 1 Each 0 12/31/2022 05/17/2050 Active Completed/Discontinued Medications Medication Drug Class(es) Dates Sig (Normalized) Sig (Original) amitriptyline hydrochloride 10 mg oral tablet (18 sources) Tricyclic Antidepressant Start: 06-04-2021 take 1 tablet by mouth once daily at bedtime amitriptyline (ELAVIL) 10 mg tablet Indications: Chronic mixed headache syndrome , Tension headache Take 1 tablet by mouth daily at bedtime. 90 tablet 1 06/04/2021 Active Problems Active Problems Problem Classification Problem Date Documented Date Episodic/Chronic Anxiety disorders (20 sources) Anxiety; Translations: [Anxiety disorder, unspecified] Onset: 3 08-01-2013 Chronic Cancer of breast (20 sources) Malignant neoplasm of upper-outer quadrant of female breast; Translations: [Malignant neoplasm of upper-outer quadrant of left female breast] Onset: 3 08-27-2023 Chronic Coagulation and hemorrhagic disorders (1 source) Hemorrhagic condition, unspecified; Translations: [Bleeding diathesis (HCC)] Onset: 4 Episodic Disorders of lipid metabolism (20 sources) Hypercholesterolemia; Translations: [Pure hypercholesterolemia, unspecified] Onset: 5 12-27-2015 Chronic Essential hypertension (20 sources) Hypertensive disorder; Translations: [Essential (primary) hypertension] Onset: 3 08-01-2013 Chronic Headache; including migraine (20 sources) Tension-type headache; Translations: [Tension-type headache, unspecified, not intractable] Onset: 1 06-04-2021 Chronic Menopausal disorders (20 sources) Perimenopausal disorder; Translations: [Unspecified menopausal and perimenopausal disorder] Onset: 8 04-12-2018 Chronic Miscellaneous mental health disorders (1 source) Not getting enough sleep; Translations: [Insufficient sleep syndrome] Chronic Nonmalignant breast conditions (20 sources) Mammographic microcalcification of breast; Translations: [Mammographic microcalcification found on diagnostic imaging of breast] Onset: 3 08-11-2023 Episodic Nutritional deficiencies (20 sources) Vitamin D deficiency; Translations: [Vitamin D deficiency, unspecified] Onset: 8 04-12-2018 Chronic Other injuries and conditions due to external causes (1 source) Other injury of unspecified body region, initial encounter; Translations: [Hematoma] Onset: 3 Episodic Other nervous system disorders (1 source) Other acute postprocedural pain; Translations: [Acute postoperative pain] Onset: 3 Episodic Other nutritional; endocrine; and metabolic disorders (20 sources) Obesity; Translations: [Obesity, unspecified] Onset: 4 11-15-2013 Chronic Other nutritional; endocrine; and metabolic disorders (6 sources) Severe obesity; Translations: [Morbid (severe) obesity due to excess calories] Onset: 4 09-20-2023 Chronic Other nutritional; endocrine; and metabolic disorders (1 source) Morbid (severe) obesity due to excess calories; Translations: [Class 3 severe obesity due to excess calories with serious comorbidity and body mass index (BMI) of 45.0 to 49.9 in adult (HCC)] Onset: 3 Chronic Other nutritional; endocrine; and metabolic disorders (1 source) Body mass index (BMI) 45.0-49.9, adult; Translations: [Class 3 severe obesity due to excess calories with serious comorbidity and body mass index (BMI) of 45.0 to 49.9 in adult (HCC)] Onset: 3 Chronic Other screening for suspected conditions (not mental disorders or infectious disease) (20 sources) Endometrium thickened; Translations: [Abnormal findings on diagnostic imaging of other specified body structures] Onset: 8 09-13-2018 Chronic Other screening for suspected conditions (not mental disorders or infectious disease) (20 sources) Patient encounter status; Translations: [Encounter for screening for malignant neoplasm of colon] Onset: 5 Episodic Residual codes; unclassified (20 sources) Obstructive sleep apnea syndrome; Translations: [Obstructive sleep apnea (adult) (pediatric)] Onset: 4 03-01-2018 Chronic Residual codes; unclassified (20 sources) Hypersomnia; Translations: [Hypersomnia, unspecified] Onset: 4 11-15-2013 Chronic Residual codes; unclassified (2 sources) Obstructive sleep apnea (adult) (pediatric); Translations: [Obstructive sleep apnea (adult) (pediatric)] Onset: 8 Chronic Residual codes; unclassified (1 source) Sleep deprivation; Translations: [Sleep deprivation] Episodic Residual codes; unclassified (1 source) At risk of lymphedema; Translations: [Other specified personal risk factors, not elsewhere classified] 09-04-2023 Episodic Residual codes; unclassified (5 sources) Estrogen receptor positive status [ER+]; Translations: [Malignant neoplasm of upper-outer quadrant of left breast in female, estrogen receptor positive (HCC) (HCC)] Onset: 3 Episodic Secondary malignancies (2 sources) Secondary and unspecified malignant neoplasm of axilla and upper limb lymph nodes; 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)] Onset: 4 Chronic Spondylosis; intervertebral disc disorders; other back problems (20 sources) Cervical spondylosis; Translations: [Other spondylosis with myelopathy, cervical region] Onset: 1 06-04-2021 Chronic Unclassified (1 source) Headaches; Translations: [Headaches] Onset: 3 Past or Other Problems Problem Classification Problem Date Documented Da te Episodic/Chronic Diabetes mellitus without complication (20 sources) Hyperglycemia; Translations: [Impaired fasting glucose] Onset: 04-15-2015 04-15-2015 Episodic Genitourinary symptoms and ill-defined conditions (20 sources) Dysuria; Translations: [Dysuria] Onset: 08-24-2018 08-24-2018 Episodic Headache; including migraine (20 sources) Chronic mixed headache syndrome; Translations: [Other headache syndrome] Onset: 06-04-2021 06-04-2021 Episodic Malaise and fatigue (20 sources) Fatigue; Translations: [Other fatigue] Onset: 04-12-2018 04-12-2018 Episodic Nutritional deficiencies (20 sources) Decreased vitamin B12 level; Translations: [Deficiency of other specified B group vitamins] Onset: 04-12-2018 04-12-2018 Episodic Other injuries and conditions due to external causes (20 sources) Injury of right knee; Translations: [Unspecified injury of right lower leg, initial encounter] Onset: 08-24-2018 08-24-2018 Episodic Other non-traumatic joint disorders (20 sources) Pain in right knee; Translations: [Pain in joint, lower leg] Onset: 08-24-2018 08-24-2018 Episodic Urinary tract infections (20 sources) Urethritis; Translations: [Other urethritis] Onset: 04-12-2018 04-12-2018 Episodic Results Test Name Value Interpretation Reference Range Facil ity Vital Signs Date Time Vital Sign Value Performing Clinician Faci lity 09-20-2023 13:58-0500 Body height 167.6 cm [facility] 1 Work Phone: [facility] 09-20-2023 13:58-0500 Body temperature 97.11 [degF] Pacc 1 Work Phone: [facility] 09-20-2023 13:58-0500 Body weight 130.64 kg Pacc 1 Work Phone: [facility] 09-20-2023 13:58-0500 Diastolic blood pressure 72 mm[Hg] Pacc 1 Work Phone: [facility] 09-20-2023 13:58-0500 Heart rate 64 /min Pacc 1 Work Phone: [facility] 09-20-2023 13:58-0500 Respiratory rate 16 /min Pacc 1 Work Phone: [facility] 09-20-2023 13:58-0500 SaO2% (BldA) [Mass fraction] 94 % Pacc 1 Work Phone: [facility] 09-20-2023 13:58-0500 Systolic blood pressure 128 mm[Hg] Pacc 1 Work Phone: [facility] 09-20-2023 09:37-0500 Body temperature 97.59 [degF] Jacoby Guevara MD, MD Work Phone: [facility] 09-20-2023 09:37-0500 Body weight 130.86 kg Jacoby Guevara MD, MD Work Phone: [facility] 09-20-2023 09:37-0500 Diastolic blood pressure 76 mm[Hg] Jacoby Guevara MD, MD Work Phone: [facility] 09-20-2023 09:37-0500 Heart rate 52 /min Jacoby Guevara MD, MD Work Phone: [facility] 09-20-2023 09:37-0500 Respiratory rate 15 /min Jacoby Guevara MD, MD Work Phone: [facility] 09-20-2023 09:37-0500 SaO2% (BldA) [Mass fraction] 96 % Jacoby Guevara MD, MD Work Phone: [facility] 09-20-2023 09:37-0500 Systolic blood pressure 137 mm[Hg] Jacoby Guevara MD, MD Work Phone: [facility] 08-27-2023 13:00-0500 Body weight 130.3 kg Harper Lopez DO Work Phone: [facility] 03-23-2022 11:32-0400 Diastolic blood pressure 71 mm[Hg] Corwin Dupree MD Work Phone: [facility] 03-23-2022 11:32-0400 Heart rate 54 /min Corwin Dupree MD Work Phone: [facility] 03-23-2022 11:32-0400 Respiratory rate 16 /min Corwin Dupree MD Work Phone: [facility] 03-23-2022 11:32-0400 SaO2% (BldA) [Mass fraction] 95 % Corwin Dupree MD Work Phone: [facility] 03-23-2022 11:32-0400 Systolic blood pressure 133 mm[Hg] Corwin Dupree MD Work Phone: [facility] 03-23-2022 09:56-0400 Body temperature 98.49 [degF] Corwin Dupree MD Work Phone: [facility] 03-23-2022 09:56-0400 Body weight 120.2 kg Corwin Dupree MD Work Phone: [facility] Encounters Encounter Date Encounter Type Care Provider Facility Start: 11-09-2023 End: 11-09-2023 ambulatory ANDREW LOPEZ Facility:[facility] Start: 11-03-2023 ambulatory UNKNOWN PROVIDER Facili ty:[facility] Start: 11-03-2023 ambulatory UNKNOWN PROVIDER Facili ty:[facility] Start: 11-01-2023 End: 11-01-2023 ambulatory MARIA VICTORIA CAMILO Facility:[facility] Start: 10-28-2023 End: 10-28-2023 ambulatory JACOBY GUEVARA MD Facility:[facility] Start: 10-20-2023 End: 10-20-2023 ambulatory HARPER LOPEZ Facility:[facility] Start: 10-19-2023 End: 10-20-2023 ambulatory ANDREW Devin QUEZADAJudith Facility:[facility] Start: 10-13-2023 End: 10-13-2023 ambulatory MARIA VICTORIA DURONN Facility:[facility] Start: 10-07-2023 End: 10-10-2023 ambulatory TED Young MONROE Facility:[facility] Start: 09-30-2023 End: 09-30-2023 ambulatory Sanam Brenda MADDOX Work Phone: [facility] Procedures Date Procedure Procedure Detail Performing Clinician Start: 10-08-2023 Antibody screen TED MONROE Plan of Treatment Date Care Activity Detail Author Start: 03-23-2032 Colonoscopy COLONOSCOPY [facility] Start: 03-23-2032 COLORECTAL CANCER SCREENING COLORECTAL CANCER SCREENING [facility] Start: 03-23-2032 Screening for malign ant neoplasm of colon [facility] Start: 08-02-2029 Urine microalbumin profile [facility] Start: 04-28-2028 PAP TESTING PAP TESTING [facility] Start: 04-28-2028 Screening for malign ant neoplasm of cervix Pap Testing [facility] Start: 11-14-2027 Lipid 1996 panel - S dharmesh or Plasma Lipid Screening [facility] Start: 11-14-2027 Lipid panel Lipid Screening [facility] Start: 11-14-2027 LIPID SCREEN LIPID SCREEN [facility] Start: 03-23-2027 Colonoscopy COLONOSCOPY [facility] Start: 03-23-2027 COLORECTAL CANCER SCREENING COLORECTAL CANCER SCREENING [facility] Start: 09-23-2026 Diabetes Screening Diabetes Screenin g [facility] Start: 09-20-2026 Diabetes Screening Diabetes Screenin g [facility] Start: 05-22-2026 LIPID SCREEN LIPID SCREEN [facility] Start: 11-14-2025 DIABETES SCREEN DIABETES SCREEN [facility] Start: 11-14-2025 Diabetes Screening Diabetes Screenin g [facility] Start: 09-12-2025 PAP TESTING PAP TESTING [facility] Start: 09-20-2024 BP Controlled (<130/80) BP Controlle d (<130/80) [facility] Start: 08-03-2024 Mammography Mammogram Screening [facility] Start: 08-03-2024 Screening for malign ant neoplasm of breast Mammogram Screening [facility] Start: 07-02-2024 Mammography Mammogram Screening [facility] Start: 05-22-2024 DIABETES SCREEN DIABETES SCREEN [facility] Start: 12-03-2023 ANNUAL PCP TEAM STOCK ANALYST JAZMINE DISEASE VISIT ANNUAL PCP TEAM CHRONIC DISEASE VISIT [facility] Start: 12-03-2023 BP CONTROLLED (<130/80) BP CONTROLLE D (<130/80) [facility] Start: 12-03-2023 COVID-19 VACCINE (4 - Booster for Pfizer series) COVID-19 VACCINE (4 - Booster for Pfizer series) [facility] Immunizations Immunization Date Immunization Notes Care Provider Jeri aceves 08-24-2019 influenza virus vaccine, unspecified formulation Milly Hodge [employer]ING WORKER.[facility] Work Phone: [facility] 08-02-2019 tetanus toxoid, redu asif diphtheria toxoid, and acellular pertussis vaccine, adsorbed Beth Maguire CASING WORKER.[employer] Work Phone: [facility] 08-13-2018 influenza, injectabl e, quadrivalent, contains preservative Beth Maguire CASING WORKER.[employer] Work Phone: [facility] 07-27-2017 influenza, injectabl e, quadrivalent, contains preservative Beth Maguire CASING WORKER.[employer] Work Phone: [facility] 2016 tetanus toxoid, redu asif diphtheria toxoid, and acellular pertussis vaccine, adsorbed Beth Maguire CASING WORKER.[employer] Work Phone: [facility] 08-11-2016 influenza, injectabl e, quadrivalent, contains preservative Beth Maguire CASING WORKER.[employer] Work Phone: [facility] 07-06-2013 influenza virus vaccine, unspecified formulation Beth Maguire CASING WORKER.[facility] Work Phone: [facility] Work Phone: Payers Date Payer Category Payer Unknown [id number] 2020 Unknown [facility] [employer] [id number] 2020-Present [phone] [address] [place] [address] PPO [id number] 2020 Unknown [id number] Social History Date Type Detail Facility Tobacco smoking stat [facility] Never smoked tobacco [facility] Work Phone: Start: 02-11-2022 End: 09-20-2023 Alcohol intake Current drinker of alcohol (finding) [facility] Start: 05-31-2021 End: 12-03-2022 History SDOH Alcohol Frequency 2 [facility] Start: 05-31-2021 End: 12-03-2022 History SDOH Alcohol Std Drinks 1 [facility] Start: 05-31-2021 End: 12-03-2022 History SDOH Social Connections Phone 5 [facility] Start: 05-31-2021 History SDOH Social Connections Get Together 4 [facility] Start: 05-31-2021 End: 12-03-2022 History SDOH Physical Activity DPW 0 [facility] Start: 05-15-2020 Education 18 [facility] Start: 1960 Sex Assigned At Female [facility] Start: 01-30-2022 End: 05-08-2022 Exposure to SARS-CoV-2 (event) Not sure [facility] Start: 11-12-2022 End: 12-03-2022 History SDOH Social Connections Get Together 3 [facility] Start: 12-03-2022 End: 08-11-2023 History of Social function [facility] Start: 12-03-2022 End: 08-11-2023 Social connection and isolation panel [facility] Do you belong to any clubs or organizations such as gnosticism groups, unions, fraternal or athletic groups, or school groups? Yes [facility] Are you now , , , , never or living with a partner? [facility] How often to you hav e a drink containing alcohol? Monthly or less [facility] How many standard dr inks containing alcohol do you have on a typical day? 1 or 2 [facility] How often do you hav e 6 or more drinks on 1 occasion? Never [facility] How hard is it for y ou to pay for the very basics like food, housing, medical care, and heating Not hard at all [facility] Do you feel stress - tense, restless, nervous, or anxious, or unable to sleep at night because your mind is troubled all the time - these days [OSQ] Only a little [facility] (I/We) worried wheth er (my/our) food would run out before (I/we) got money to buy more. Never true [facility] In the past 12 month s, was there a time when you were not able to pay the mortgage or rent on time? No [facility] Start: 03-10-2019 Gender identity Identifies as female gender (finding) [facility] Start: 03-10-2019 Sexual orientation Heterosexual (finding) [facility] Start: 08-27-2023 Alcohol Comment rare [facility] Medical Equipment Procedure Code Equipment Code Equipment Origin al Text Equipment Identifier Dates Start: 06-17-2021 End: 01-25-2023 Clinical Notes 02-11-2022 to 11-09-2023 Sanam Eller LPN - 09/30/2023 10:43 AM Keyanna Taylor APRN.CNP - 09/20/2023 2:15 PM ESTPatient InstructionsStJacquelin almaguer RN - 09/20/2023 9:39 AM ESTPatient Instructions Note Date & Type Note Facility 11-09-2023 Note HNO ID: [id number] Author: ANDREW LOPEZ, DO Service: ? Author Type: Physician Type: Progress Notes Filed: 11/09/2023 11:26 Note Text: Oncologic problem(s): 1) Breast cancer. 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 ; CPAP), elevated fasting glucose, prior low vitamin B12 (home B12 injections monthly) and recent diagnosis of breast cancer. Patient had screening mammogram 07/02/2023. On that study she was observed to have asymmetry in the left breast upper outer quadrant. There are also new calcifications in the right breast upper inner quadrant posterior depth. Diagnostic mammogram and ultrasound 07/06/2023 identified a 2 and half centimeter spiculated mass in the left breast at 1:00 located 3 cm from the nipple. The lymph nodes appeared normal. Underwent core needle biopsy. Pathology: A. Left breast, core biopsy: -Invasive ductal carcinoma with lobular features, provisional Rhiannon grade 1-2 (of 3), measuring almost 12 mm in this sampling. Estrogen Receptor (ER) Positive 91-100 % Stain intensity: moderate to strong Progesterone Receptor (NC) Positive 51-60 % Stain intensity: moderate to strong HER2 (ERBB2) IMMUNOHISTOCHEMISTRY ASSAY Interpretation: NEGATIVE for HER2 (ERBB2) Expression Score: 1+ Underwent stereotactic breast biopsy of right breast 08/13/2023. Pathology: A. Right breast, upper inner, calcifications, stereotactic-guided core needle biopsy with stoplight clip placement: - Breast tissue with usual ductal hyperplasia, microcysts, apocrine metaplasia, columnar cell change, and stromal fibrosis. - Microcalcifications present within the glands. MRI Breasts 09/16/2023: IMPRESSION: KNOWN BIOPSY PROVEN MALIGNANCY 1. 2.8 cm spiculated enhancing mass in the 1:00 middle depth left breast at site of biopsy-proven malignancy. There are two 5-6 mm satellite enhancing foci from the dominant mass by approximately 6-7 mm each, suspicious for adjacent satellite enhancing foci, which would increase the total measurement to approximately 3.8 cm. 2. 5 mm enhancing focus in the lateral retroareolar left breast is indeterminate. If the patient is considering breast conservation therapy, second look ultrasound would be recommended to further evaluate and facilitate possible ultrasound guided biopsy. If not seen sonographically, an MRI guided biopsy would be recommended/should be attempted, although the close proximity to the nipple may be challenging. 3. No MRI evidence of malignancy in the right breast. Small postbiopsy hematoma in the upper inner right breast at site of recent benign stereotactic biopsy of calcifications. 4. No lymphadenopathy. Presents for ongoing oncologic management. Interim history: Underwent left simple mastectomy along with sentinel lymph node mapping and biopsy on 10/07/2023. Pathology: A. Breast, left, mastectomy: ---Invasive ductal carcinoma, Rhiannon grade 2 (of 3), situated in the upper-inner quadrant, and measuring 35 mm in greatest dimension. ---Ductal carcinoma in-situ (DCIS), high and intermediate nuclear grades, with comedo necrosis. ---No definitive lymph-vascular invasion. ---The nipple and overlying skin are negative for carcinoma. ---The background breast shows biopsy site change, atypical lobular hyperplasia (ALH), flat epithelial atypia (FEA), fibroadenomatoid nodules, and fibrocystic changes including columnar cell change/hyperplasia. ---Microcalcifications are present within invasive carcinoma, DCIS, and benign breast. ---The final surgical margins are negative for carcinoma by greater than 2 mm. ---Please see synoptic template below. B. Lymph nodes, left, sentinel biopsy: ---Metastatic mammary carcinoma in multiple (3 of 4) lymph nodes. The largest metastatic focus measures 15 mm in greatest dimension. Extranodal extension into soft tissue is present, measuring 6 mm in greatest dimension. [3] C. Breast, left, lateral margin, excision: ---Negative for carcinoma. Synoptic Report INVASIVE CARCINOMA OF THE BREAST: Resection 8th Edition - Protocol posted: 12/30/2022 INVASIVE CARCINOMA OF THE BREAST: EXCISION - All Specimens SPECIMEN Procedure Total mastectomy Specimen Laterality Left TUMOR Tumor Site Upper inner quadrant Histologic Type Invasive carcinoma of no special type (ductal) Histologic Grade (Burket Histologic Score) Glandular (Acinar) / Tubular Differentiation Score 3 Nuclear Pleomorphism Score 2 Mitotic Rate Score 1 Overall Grade Grade 2 (scores of 6 or 7) Tumor Size Greatest dimension of largest invasive focus (Millimeters): 35 mm Tumor Focality Single focus of invasive carcinoma Ductal Carc (more content not included)... [facility] 11-03-2023 Note HNO ID: [id number] Author: MICHA HOYOS CNMT Service: Radiology Author Type: Technologist Type: Progress Notes Filed: 11/03/2023 11:01 Note Text: RADIOLOGY SERVICE PROGRESS NOTE SERVICE DATE: 11/03/2023 SERVICE TIME: 11:00 AM PATIENT IDENTITY VERIFICATION COMPLETED USING TWO (2) STANDARD IDENTIFIERS: Name and Date of confirmed by patient verbally and Name and Date of confirmed by identification band FALL SCREENING: Has the patient had 2 falls in the last year or 1 fall with injury or currently using an Ambulatory Assistive Device (Walker, Cane, Wheelchair, Crutches, etc.)? No PATIENT GENDER DATA: .female : No ALLERGIES: Reviewed and unchanged MEDICATIONS REVIEWED: Not applicable PATIENT RELEVANT IMPLANT DATA REVIEWED: Not Applicable CREATININE: Creatinine Date Value Ref Range Status 10/09/2023 1.40 (H) 0.58 - 0.96 mg/dL Final 10/08/2023 1.93 (H) 0.58 - 0.96 mg/dL Final 10/07/2023 1.53 (H) 0.58 - 0.96 mg/dL Final Estimated Glomerular Filtration Rate Date Value Ref Range Status 10/09/2023 43 (L) >=60 mL/min/1.73m? Final Comment: Estimated Glomerular Filtration Rate (eGFR) is calculated using the 2020 CKD-EPI creatinine equation. This equation utilizes serum creatinine, sex, and age as parameters. The creatinine assay has traceable calibration to isotope dilution-mass spectrometry. Refer to KDIGO guidelines for clinical interpretation. In patients with unstable renal function, e.g. those with acute kidney injury, the eGFR may not accurately reflect actual GFR. eGFR- Date Value Ref Range Status 05/22/2021 >60 Final P.O.C.T. RESULTS: N/A November 03, [address] PERFORMED: No IV SITE: Ambulatory: A peripheral IV was started in the Right hand with a Angio cath: 22 gauge. POST EXAM PIV STATUS: Discontinued PROCEDURE TYPE: NM INJECT: Whole Body Bone Scan. 22 mCi Tc99m MDP. No other medications given.. ADMINISTRATION TIME: 10:15 PATIENT DISCHARGED TO: Ambulatory patient, left MA department area. A Diagnostic radioactive procedure has taken place, with no further precautions necessary other than routine body substance precautions. More information regarding radiation safety can be found using this link: [email or web address] SIGNATURE: SUN Restrepo PATIENT NAME: Ramona Villegas DATE: November 03, 2023 TIME: 11:00 AM PAGER/CONTACT #: [facility] 11-01-2023 Note HNO ID: [id number] Author: JOY HUNT RT(R) Service: ? Author Type: Casket Coverer Type: Progress Notes Filed: 11/01/2023 13:44 Note Text: Radiology Service Progress Note DATE OF SERVICE: November 01, 2023 TIME: 1:44 PM PATIENT IDENTITY VERIFICATION COMPLETED USING TWO (2) STANDARD IDENTIFIERS: Name and Date of confirmed by patient verbally. FALL SCREENING: Has the patient had 2 falls in the last year or 1 fall with injury or currently using an Ambulatory Assistive Device (Walker, Cane, Wheelchair, Crutches, etc.)? No PATIENT GENDER DATA: Female. status: : No status: NO. PATIENT RELEVANT IMPLANT DATA REVIEWED: Yes ALLERGIES: Reviewed and unchanged CONTRAST ALLERGY: NO. EXAM: CT -CONTRAST INDUCED NEPHROPATHY RISK FACTORS: Patient age > 60 years CREATININE: Creatinine Date Value Ref Range Status 10/09/2023 1.40 (H) 0.58 - 0.96 mg/dL Final 10/08/2023 1.93 (H) 0.58 - 0.96 mg/dL Final 10/07/2023 1.53 (H) 0.58 - 0.96 mg/dL Final Estimated Glomerular Filtration Rate Date Value Ref Range Status 10/09/2023 43 (L) >=60 mL/min/1.73m? Final Comment: Estimated Glomerular Filtration Rate (eGFR) is calculated using the 2020 CKD-EPI creatinine equation. This equation utilizes serum creatinine, sex, and age as parameters. The creatinine assay has traceable calibration to isotope dilution-mass spectrometry. Refer to KDIGO guidelines for clinical interpretation. In patients with unstable renal function, e.g. those with acute kidney injury, the eGFR may not accurately reflect actual GFR. eGFR- Date Value Ref Range Status 05/22/2021 >60 Final P.O.C.T. RESULTS: POC done: Yes, See Lab Tab November 01, 2023 TREATMENT: N/A PERIPHERAL IV DATA: Ambulatory: A peripheral IV was started in the Right antecubital site with a Angio cath: 22 gauge. RADIOLOGY DEPARTMENT: CT; Exam(s) Completed: Chest Abdomen Pelvis SIGNATURE: RT Katarina(R) PATIENT NAME: Ramona Villegas DATE: November 01, 2023 TIME: 1:44 PM [facility] 10-29-2023 Note HNO ID: [id number] Author: JACOBY GUEVARA MD Service: ? Author Type: Physician Type: Progress Notes Filed: 10/29/2023 15:11 Note Text: Radiation Oncology - Follow Up Note PATIENT NAME: Ramona Villegas PATIENT DIAGNOSIS: Stage IB, pT2 pN2a (sn), grade 2 invasive ductal carcinoma of the left breast s/p left mastectomy and sentinel node biopsy. Positive extranodal extension. It's ER positive (91-100%, moderate to strong), NC positive (51-60%, moderate to strong) and Her2 1+. INTERVAL HISTORY: I saw her last month for newly diagnosed left breast cancer. Since then, she underwent left mastectomy and sentinel node biopsy on 10/07/23. Pathology showed grade 2 invasive ductal carcinoma in the upper inner quadrant measuring 35 mm. There was no LVI. There was high grade DCIS component with comedo necrosis. Surgical margins were negative with the closest margin greater than 2 mm. 3/4 sentinel nodes were involved with macrometastasis with the largest foci measuring 15 mm and positive extranodal extension into the soft tissue measuring 6 mm. She had hematoma after surgery requiring evacuation of hematoma on the same day. She is here to discuss radiation treatment. ALLERGIES No Known Allergies MEDICATIONS: PNV/ferrous sulfate/folic acid ( MULTIVIT WITH IRON ORAL) Take by mouth. acetaminophen (TYLENOL ORAL) Take by mouth. rosuvastatin (CRESTOR) 10 mg tablet Take 1 tablet by mouth daily at bedtime. FLUoxetine (PROZAC) 20 mg capsule Take 1 capsule by mouth once daily. hydroCHLOROthiazide 25 mg tablet take 1 tablet daily celecoxib (CELEBREX) 200 mg capsule Take 1 capsule by mouth once daily. metoprolol succinate ER (TOPROL XL) 100 mg Take 1 tablet by mouth once daily. Cholecalciferol, Vitamin D3, 125 mcg (5,000 unit) cap Take 1 capsule by mouth once daily. amLODIPine (NORVASC) 2.5 mg tablet Take 1 tablet by mouth once daily. cyanocobalamin 1,000 mcg/mL Inject 1 mL intramuscularly once every month. iv contrast (will be provided with radiology test) CT ABD/PEL -Inject, intravenously, once for 1 dose.No IV access, insert saline lock prior to the beginning of sedation, infusion, injection of imaging exam. Discontinue saline lock post exam. If Pt. has a central line or IVAD, may access for administration according to line specific nursing protocol. Once exam is complete flush line and de-access according to line specific nursing protocol in the CT contrast administration guidelines link. iv contrast (will be provided with radiology test) CT Chest W -Inject, intravenously, once for 1 dose.No IV access, insert saline lock prior to the beginning of sedation, infusion, injection of imaging exam. Discontinue saline lock post exam. If Pt. has a central line or IVAD, may access for administration according to line specific nursing protocol. Once exam is complete flush line and de-access according to line specific nursing protocol in the CT contrast administration guidelines link. Syringe with Needle, Safety 3 mL 23 gauge x 1 1 Each once every month. With B-12 injections [place] CPAP/BIPAP/OTHER Type .CPAPSettings into a note to see current settings/supplies/DME information. naproxen (NAPROSYN) 500 mg tablet Take 1 tablet by mouth twice daily as needed (for pain/inflammation). Take with food. (Patient not taking: Reported on 10/28/2023) CPAP/BIPAP/OTHER Type .CPAPSettings into a note to see current settings/supplies/DME information. CPAP Mask refitting when eligible, suitable mask per pt preference, chin strap, head gear, humidity, tubing, lifetime supplies. G47.33 Obstructive Sleep Apnea CPAP 1 Device daily at bedtime. Auto PAP with Settings 10-20 cm H2O, suitable mask per pt preference, chin strap, head gear, humidity, tubing, lifetime supplies. G47.33 Obstructive Sleep Apnea. Current machine broken beyond repair. CPAP AutoPAP 10-20 cmH2O, suitable mask, humidity, filters, chin strap. Lifetime supplies. Dx: 327.23. compliance rpt to Dr. Miller in 6 wks. PHYSICAL EXAM: VS: BP 134/77 Pulse (!) 56 Temp 36.1 ?C (96.9 ?F) (Temporal) Resp 16 Wt 128.6 kg (283 lb 8 oz) LMP 07/25/2015 BMI 45.76 kg/m? KPS: 90 General Appearance: Alert and oriented. No acute distress. ASSESSMENT AND PLAN: 63 year old woman with stage IB, pT2 pN2a (sn), grade 2 invasive ductal carcinoma of the left breast s/p left mastectomy and sentinel node biopsy. Positive extranodal extension. It's ER positive (91-100%, moderate to strong), NC positive (51-60%, moderate to strong) and Her2 1+. I recommend postmastectomy radiation treatment to the left chest wall and regional lymphatics as she has multiple positive nodes with extranodal extension. I understand that there will be tumor board discussion on indication of full axillary node dissection. She will also have staging scans and Oncotype DX testing. I explained the rationale, benefits, alternative management options and (more content not included)... [facility] 10-28-2023 Note HNO ID: [id number] Author: GLADYS MESSINA MD Service: ? Author Type: Physician Type: Progress Notes Filed: 10/29/2023 06:57 Note Text: The below documentation is based on a tumor board discussion amongst the multidisciplinary team and should NOT be used for insurance verification or coverage purposes or interpreted as the final plan of care: Date of Presentation: October 28, 2023 Presenter: Dr. Harper Lopez Team Members: Andrew Lopez MD and Ismael Dozier MD Primary reason for presentation: discussion of pt presentation / treatment options Anatomic stage: pathological prognostic stage IB ([id number]) invasive ductal carcinoma with ER+, NC+, HER2 negative status. Pathway discussed: Yes Clinical trial discussion: Yes, not applicable for pt presentation Genetics discussions: Yes, testing applicable / testing not completed: pending genetic counseling on 12/28/2023 Supportive services discussion: Yes, referrals to be considered: none Discussion / recommendations: After review and discussion of patient presentation, the following thoughts / recommendations were made. 63 year old lady with Pathological prognostic stage IB ([id number]) invasive ductal carcinoma with ER+, NC+, HER2 negative status Bleeding issues requiring evacuation mastectomy site hematoma 10/08/2023 and 2 PRBC transfusion support High BMI 45.76 increases risk for lymphedema 1) agree with staging CT CAP scans and bone scan 2) Oncotype Dx testing and consider Ki-67 3) decision on proceeding versus omitting axillary lymph node dissection pending at this time while awaiting Oncotype Dx testing and systemic imaging 4) adjuvant radiation therapy 5) adjuvant systemic therapy based on pending tests 6) adjuvant endocrine therapy This abstract and interpretation of the conversation at tumor board has been completed by Galdys Messina MD. The final recommendations / treatment plan will be made by the patient's primary health care team and patient, after full discussion as appropriate. [facility] 10-20-2023 Note HNO ID: [id number] Author: MARIA VICTORIA CAMILO PA-C Service: ? Author Type: Physician Loin Puller Type: Progress Notes Filed: 10/20/2023 15:27 Note Text: BREAST CANCER POST OPERATIVE FOLLOW-UP SERVICE DATE: 10/20/23 SURGERY DATE: 10/07/23 POSTOPERATIVE VISIT #1 SUBJECTIVE: Ramona Villegas is a 63 year old year old female who is s/p a LEFT simple mastectomy, LEFT sentinel lymph node mapping and biopsy performed by Dr. Lopez (Breast Surgeon) on 10/07/2024. Unfortunately, surgery was followed by evacuation of left sided breast hematoma on 10/08/2024. She was seen for a drain check last week with serous drainage in one of the two drains. She reports > 30ml of daily drainage output from the one of the drains for the past 2 days, but states the other drain is without any drainage at all. She denies any redness, bruising, swelling or discharge from the incision. She denies any fever or chills. Pain of the surgical site is reported as minimal and intermittent.. Patient followed-up with Dr. Lopez (Medical Oncologist) yesterday and discussed the pathology finding. OBJECTIVE: PHYSICAL EXAM: BREAST EXAMINATION: The patient was examined in the upright position. LEFT breast surgically absent, with resolving ecchymosis noted. No hematoma. No dominant chest wall masses, no skin changes. Two RODERICK drains in place. One drain removed without complications. Patient tolerated well. Second drain remains intact with serosanguineous fluid noted in bulb. The horizontal incision is healing well. C/D/I LEFT axilla no palpable lymphadenopathy, no evidence of lymphedema, and good range of motion. Regional Lymph Nodes: There is no concerning supraclavicular, infraclavicular or cervical lymphadenopathy. SURGICAL PATHOLOGY: FINAL DIAGNOSIS A. Breast, left, mastectomy: ---Invasive ductal carcinoma, Rhiannon grade 2 (of 3), situated in the upper-inner quadrant, and measuring 35 mm in greatest dimension. ---Ductal carcinoma in-situ (DCIS), high and intermediate nuclear grades, with comedo necrosis. ---No definitive lymph-vascular invasion. ---The nipple and overlying skin are negative for carcinoma. ---The background breast shows biopsy site change, atypical lobular hyperplasia (ALH), flat epithelial atypia (FEA), fibroadenomatoid nodules, and fibrocystic changes including columnar cell change/hyperplasia. ---Microcalcifications are present within invasive carcinoma, DCIS, and benign breast. ---The final surgical margins are negative for carcinoma by greater than 2 mm. ---Please see synoptic template below. B. Lymph nodes, left, sentinel biopsy: ---Metastatic mammary carcinoma in multiple (3 of 4) lymph nodes. The largest metastatic focus measures 15 mm in greatest dimension. Extranodal extension into soft tissue is present, measuring 6 mm in greatest dimension. [3] C. Breast, left, lateral margin, excision: ---Negative for carcinoma. Block for additional Biomarkers/Molecular studies A7 Synoptic Report INVASIVE CARCINOMA OF THE BREAST: Resection 8th Edition - Protocol posted: 12/30/2022 INVASIVE CARCINOMA OF THE BREAST: EXCISION - All Specimens SPECIMEN Procedure Total mastectomy Specimen Laterality Left TUMOR Tumor Site Upper inner quadrant Histologic Type Invasive carcinoma of no special type (ductal) Histologic Grade (Burket Histologic Score) Glandular (Acinar) / Tubular Differentiation Score 3 Nuclear Pleomorphism Score 2 Mitotic Rate Score 1 Overall Grade Grade 2 (scores of 6 or 7) Tumor Size Greatest dimension of largest invasive focus (Millimeters): 35 mm Tumor Focality Single focus of invasive carcinoma Ductal Carcinoma In Situ (DCIS) Present Negative for extensive intraductal component (EIC) Nuclear Grade Grade III (high) Necrosis Present, central (expansive comedo necrosis) Lobular Carcinoma In Situ (LCIS) Not identified Lymphatic and / or Vascular Invasion Not identified Dermal Lymphatic and / or Vascular Invasion Not identified Microcalcifications Present in DCIS Present in invasive carcinoma Present in non-neoplastic tissue Treatment Effect in the Breast No known presurgical therapy MARGINS Margin Status for Invasive Carcinoma All margins negative for invasive carcinoma Distance from Invasive Carcinoma to Closest Margin Greater than: 2 mm Margin Status for DCIS All margins negative for DCIS Distance from DCIS to Closest Margin Greater than: 2 mm REGIONAL LYMPH NODES Regional Lymph Node Status Tumor present in regional lymph node(s) Number of Lymph Nodes with Macrometastases 3 Number of Lymph Nodes with Micrometastases 0 Size of Largest [place] Metastatic Deposit 15 mm Extranodal Extension Present, greater than 2 mm Amount 6 mm Total Number of Lymph Nodes Examined (sentinel and non-sentinel) 4 Number of [place] Nodes Examined 4 pTNM CLASSIFICAT (more content not included)... [facility] 10-19-2023 Note HNO ID: [id number] Author: ANDREW LOPEZ, DO Service: ? Author Type: Physician Type: Progress Notes Filed: 10/19/2023 13:21 Note Text: Oncologic problem(s): 1) Breast cancer. 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 ; CPAP), elevated fasting glucose, prior low vitamin B12 (home B12 injections monthly) and recent diagnosis of breast cancer. Patient had screening mammogram 07/02/2023. On that study she was observed to have asymmetry in the left breast upper outer quadrant. There are also new calcifications in the right breast upper inner quadrant posterior depth. Diagnostic mammogram and ultrasound 07/06/2023 identified a 2 and half centimeter spiculated mass in the left breast at 1:00 located 3 cm from the nipple. The lymph nodes appeared normal. Underwent core needle biopsy. Pathology: A. Left breast, core biopsy: -Invasive ductal carcinoma with lobular features, provisional Burket grade 1-2 (of 3), measuring almost 12 mm in this sampling. Estrogen Receptor (ER) Positive 91-100 % Stain intensity: moderate to strong Progesterone Receptor (NC) Positive 51-60 % Stain intensity: moderate to strong HER2 (ERBB2) IMMUNOHISTOCHEMISTRY ASSAY Interpretation: NEGATIVE for HER2 (ERBB2) Expression Score: 1+ Underwent stereotactic breast biopsy of right breast 08/13/2023. Pathology: A. Right breast, upper inner, calcifications, stereotactic-guided core needle biopsy with stoplight clip placement: - Breast tissue with usual ductal hyperplasia, microcysts, apocrine metaplasia, columnar cell change, and stromal fibrosis. - Microcalcifications present within the glands. MRI Breasts 09/16/2023: IMPRESSION: KNOWN BIOPSY PROVEN MALIGNANCY 1. 2.8 cm spiculated enhancing mass in the 1:00 middle depth left breast at site of biopsy-proven malignancy. There are two 5-6 mm satellite enhancing foci from the dominant mass by approximately 6-7 mm each, suspicious for adjacent satellite enhancing foci, which would increase the total measurement to approximately 3.8 cm. 2. 5 mm enhancing focus in the lateral retroareolar left breast is indeterminate. If the patient is considering breast conservation therapy, second look ultrasound would be recommended to further evaluate and facilitate possible ultrasound guided biopsy. If not seen sonographically, an MRI guided biopsy would be recommended/should be attempted, although the close proximity to the nipple may be challenging. 3. No MRI evidence of malignancy in the right breast. Small postbiopsy hematoma in the upper inner right breast at site of recent benign stereotactic biopsy of calcifications. 4. No lymphadenopathy. Presents for ongoing oncologic management. Interim history: Underwent left simple mastectomy along with sentinel lymph node mapping and biopsy on 10/07/2023. Pathology: A. Breast, left, mastectomy: ---Invasive ductal carcinoma, Rhiannon grade 2 (of 3), situated in the upper-inner quadrant, and measuring 35 mm in greatest dimension. ---Ductal carcinoma in-situ (DCIS), high and intermediate nuclear grades, with comedo necrosis. ---No definitive lymph-vascular invasion. ---The nipple and overlying skin are negative for carcinoma. ---The background breast shows biopsy site change, atypical lobular hyperplasia (ALH), flat epithelial atypia (FEA), fibroadenomatoid nodules, and fibrocystic changes including columnar cell change/hyperplasia. ---Microcalcifications are present within invasive carcinoma, DCIS, and benign breast. ---The final surgical margins are negative for carcinoma by greater than 2 mm. ---Please see synoptic template below. B. Lymph nodes, left, sentinel biopsy: ---Metastatic mammary carcinoma in multiple (3 of 4) lymph nodes. The largest metastatic focus measures 15 mm in greatest dimension. Extranodal extension into soft tissue is present, measuring 6 mm in greatest dimension. [12/12] C. Breast, left, lateral margin, excision: ---Negative for carcinoma. Synoptic Report INVASIVE CARCINOMA OF THE BREAST: Resection 8th Edition - Protocol posted: 12/30/2022 INVASIVE CARCINOMA OF THE BREAST: EXCISION - All Specimens SPECIMEN Procedure Total mastectomy Specimen Laterality Left TUMOR Tumor Site Upper inner quadrant Histologic Type Invasive carcinoma of no special type (ductal) Histologic Grade (Burket Histologic Score) Glandular (Acinar) / Tubular Differentiation Score 3 Nuclear Pleomorphism Score 2 Mitotic Rate Score 1 Overall Grade Grade 2 (scores of 6 or 7) Tumor Size Greatest dimension of largest invasive focus (Millimeters): 35 mm Tumor Focality Single focus of invasive carcinoma Ductal Carc (more content not included)... [facility] 10-13-2023 Note HNO ID: [id number] Author: Maria Victoria Camilo PA-C Service: ? Author Type: Physician Loin Puller Type: Progress Notes Filed: 10/13/2023 11:25 AM Note Text: REASON FOR TODAY'S VISIT: Drain check HISTORY of PRESENT ILLNESS: Ramona Villegas is a 63 year old female who is s/p a left mastectomy performed on 10/07/2023. She returned to the OR for concerns of possible active bleeding on 10/08/2023. She was discharge home on 10/10/2023 She is here today concerned that one of the drain may not be working, but reports has had daily drainage for the second drain. Review of records shows a total of 515 cc on 10/11/2023 and 430 cc on 10/12/2023 and 170 cc overnight. Her son report he has been taking her vitals which have remained stable. She reports being tired in the morning, but this improves through out the day. No SOB, fever/chills, malaise, shortness of breath noted. Pain level is 3/10. Using OTC medications and continues taking antibiotic as prescribed. EXAMINATION: GEN alert and orientated, well nourished, calm Regional Lymph Nodes There is no concerning supraclavicular, infraclavicular or cervical lymphadenopathy. BREASTS: The patient was examined in the upright and supine position. LEFT breast surgically absent. Soft, resolving ecchymosis noted. Incision well approximated without sign of infection. C/D/I. Two RODERICK drains intact. Scant amount of dark blood in one drain with the other RODERICK bulb containing dark blood changing to serosanguineous fluid in tubing. No dominant masses, no NAC,. LEFT axilla no palpable axillary lymphadenopathy ABD soft, non-distended, non-tender, no organomegaly EXT ambulated independently, good ROM of upper extremities, no evidence of lymphedema IMPRESSION: Ramona Villegas is a 63 year old female who is s/p a left mastectomy performed on 10/07/2023. She returned to the OR for concerns of possible active bleeding on 10/08/2023. She was discharge home on 10/10/2023 Slowly healing,one drain patent PLAN: Reviewed case with Dr. Prado (Breast Surgeon). Patient will continue to use the MINERVA wrap as advised daily. Will continue with the antibiotics as prescribed Instructions were reviewed regarding the signs and symptoms of infection, seroma/hematoma development and wound management. The patient will continue to observe this area and contact the office with updates. Ms. Villegas will follow-up with us next week as scheduled (sooner if needed). She has our names and numbers to stay in touch if there are any questions, concerns or problems. Maria Victoria Camilo PA-C cc: Dr. Lopez (Breast Surgeon) Ted Monroe [address] [place] [address] [facility] 10-10-2023 Note HNO ID: [id number] Author: Valente Jesus Service: Pharmacy Author Type: ? Type: Plan of Care Filed: 10/13/2023 11:12 AM Note Text: PHARMACY BEDSIDE DELIVERY SERVICE Patient Name: Ramona Villegas The marked outpatient medications were filled at [facility] pharmacy and picked up at the pharmacy Medication List START taking these medications cefADROxil 500 mg capsule Commonly known as: DURICEF Take 1 capsule by mouth two times a day for 10 days. CONTINUE taking these medications amLODIPine 2.5 mg tablet Commonly known as: NORVASC Take 1 tablet by mouth once daily. celecoxib 200 mg capsule Commonly known as: CeleBREX Take 1 capsule by mouth once daily. Cholecalciferol (Vitamin D3) 125 mcg (5,000 unit) Cap Take 1 capsule by mouth once daily. CPAP AutoPAP 10-20 cmH2O, suitable mask, humidity, filters, chin strap. Lifetime supplies. Dx: 327.23. compliance rpt to Dr. Miller in 6 wks. CPAP 1 Device daily at bedtime. Auto PAP with Settings 10-20 cm H2O, suitable mask per pt preference, chin strap, head gear, humidity, tubing, lifetime supplies. G47.33 Obstructive Sleep Apnea. Current machine broken beyond repair. CPAP Mask refitting when eligible, suitable mask per pt preference, chin strap, head gear, humidity, tubing, lifetime supplies. G47.33 Obstructive Sleep Apnea CPAP/BIPAP/OTHER Type .CPAPSettings into a note to see current settings/supplies/DME information. CPAP/BIPAP/OTHER Type .CPAPSettings into a note to see current settings/supplies/DME information. cyanocobalamin 1,000 mcg/mL Inject 1 mL intramuscularly once every month. FLUoxetine 20 mg capsule Commonly known as: PROzac Take 1 capsule by mouth once daily. hydroCHLOROthiazide 25 mg tablet take 1 tablet daily metoprolol succinate ER 100 mg Commonly known as: TOPROL XL Take 1 tablet by mouth once daily. naproxen 500 mg tablet Commonly known as: NAPROSYN Take 1 tablet by mouth twice daily as needed (for pain/inflammation). Take with food. rosuvastatin 10 mg tablet Commonly known as: CRESTOR Take 1 tablet by mouth daily at bedtime. Syringe with Needle, Safety 3 mL 23 gauge x 1 1 Each once every month. With B-12 injections Luerlock You might also be taking other medications not listed above. If you have questions about any of your other medications, talk to the person who prescribed them or your Primary Care Provider. ASK your doctor about these medications oxyCODONE IR 5 mg immediate release tablet Commonly known as: ROXICODONE Take 1 tablet by mouth every 6 hours as needed for pain for up to 3 days. Ask about: Should I take this medication? Valente Jesus PAGER: [phone] October 13, 2023 11:11 AM [facility] 10-10-2023 Note HNO ID: [id number] Author: Shakir Ji MD Service: General Surgery Author Type: Resident Type: Progress Notes Filed: 10/10/2023 11:28 AM Note Text: GENERAL SURGERY PROGRESS NOTE NAME: Ramona Villegas 10/10/2023 7:50 AM 2 Days Post-Op Interval: 1u pRBC transfusion States she feels much better after transfusion, no further episodes of orthostasis Normotensive, Afebrile Hgb stable this AM at 8.1 JPs with 50 cc total dark thin old bloody output Pain well controlled Tolerating diet AANDP: Ramona Villegas is a 63 year old female with history of ZEYNEP, HTN, left breast CA who is s/p left simple mastectomy and sentinel lymph node mapping on 10/07. Course complicated by left breast hematoma now 2 Days Post-Op s/p left breast re-exploration and hematoma evacuation. Clinically stable and doing well after transfusion. PLAN - Orthostatics this AM - negative study - Repeat CBC this afternoon if symptomatic - Multimodal pain control - Regular diet, HLIV - Strict I/Os, monitor drain output - Please keep left arm elevated at all times - Dispo: home today if asymptomatic from anemia perspective Shakir Ji MD General Surgery PGY-2 [facility] (General Surgery) pager: [phone] Between 6p-6a or Sat/Sun, please page general surgery national sales trainer [phone] On exam: BP 139/56 Pulse 69 Temp 36.7 ?C (98.1 ?F) (Oral) Resp 20 Ht 167.6 cm (5' 6 ) LMP 07/25/2015 SpO2 95% BMI 46.48 kg/m? Gen: NAD CV: extremities warm and well perfused, pulse regular Pulm: no increased work of breathing on CPAP Non labored breathing Incisions: Well approximated, no evidence of hematoma. Some jaqueline-incisional ecchymosis. RODERICK x2 in place both SS Labs: CBC, BMP, MG, PHOS Recent Labs 10/10/23 0545 10/09/23 1427 10/09/23 0707 10/08/23 1535 10/08/23 0258 10/07/23 2215 10/07/23 2157 10/07/23 1150 09/23/23 1313 WBC 12.10* 15.21* 11.93* 12.44* < > -- < > -- -- HB 8.1* 8.5* 8.4* 8.8* < > -- < > -- -- HCT 23.9* 25.1* 24.9* 25.5* < > -- < > -- -- PLT 126* 143* 128* 139* < > -- < > -- -- NA -- -- 138 135* -- 136 -- -- 139 K -- -- 3.7 3.6* -- 3.4* -- 3.3* 3.3* CHLOR -- -- 103 100 -- 99 -- -- 102 CO2 -- -- 23 22 -- 20* -- -- 31* BUN -- -- 24* 27* -- 17 -- -- 14 CREAT -- -- 1.40* 1.93* -- 1.53* -- -- 1.14* GLUC -- -- 164* 129* -- 205* -- -- 90 CA -- -- 7.6* 7.8* -- 8.2* -- -- 9.6 < > = values in this interval not displayed. Liver Function, Amylase, AND Lipase Recent Labs 10/09/23 0707 10/08/23 1535 10/08/23 0055 10/07/23 2215 09/20/23 1445 TPROT 5.1* 5.3* -- 6.0* 7.2 ALB 3.1* 3.2* -- 3.6* 4.4 ALT 9 13 -- 21 27 AST 18 20 -- 24 21 ALKPHOS 40 43 -- 59 89 TBILI 0.8 0.8 -- 1.3 1.5* LACT -- -- 2.6* -- -- Coags Recent Labs 10/08/23 1535 INR 1.0 Cardiac Enzymes Intake and Output: Date 10/09/23 07 - 10/10/23 0659 10/10/23 07 - 10/11/23 0659 Shift 1355-6494 9397-4107 9203-3691 24 Hour Total 8247-0774 4195-3091 2529-4181 24 Hour Total INTAKE PO 504 675 0356 PO 600 065 7920 IV 950 950 Volume (mL) (lactated ringers iv infusion) 950 950 Shift Total 6427 561 2417 OUTPUT Urine 850 810 488 8584 Void (ml) 550 766 244 9498 Output ([REMOVED] Indwelling Urinary Catheter 10/08/23 1736 Greco 16 Fr 10/09/23 0739) 300 300 Tubes 392 50 40 482 Drain/Tube Output (Drain/Tube 10/08/23 1833 Eliazar Steve Left Lower Breast Drain #1) 0 0 0 0 Drain/Tube Output (Drain/Tube 10/08/23 1833 Eliazar Steve Left Lateral;Lower Breast Drain #2) 392 50 40 482 Shift Total 1242 061 061 4379 Weight (kg) Current Medications: Current Facility-Administered Medications Medication Dose Route Frequency NaCl 0.9% iv flush bag 20 mL INTRAVENOUS PRN acetaminophen 650 mg tab(s) (TYLENOL) 650 mg ORAL q 6 H PRN HYDROcodone 5 mg - acetaminophen 325 mg tablet (NORCO) 1 tablet ORAL q 6 H PRN morphine 2 mg injection 2 mg INTRAVENOUS q 4 H PRN ondansetron 4 mg tab(s) (ZOFRAN) 4 mg ORAL q 6 H PRN Or ondansetron (PF) 4 mg injection (ZOFRAN) 4 mg INTRAVENOUS q 6 H PRN metoprolol succinate ER 100 mg tab(s) (TOPROL XL) 100 mg ORAL DAILY FLUoxetine 20 mg cap(s) (PROzac) 20 mg ORAL DAILY lactated ringers iv infusion 50 mL/hr INTRAVENOUS CONTINUOUS white petrolatum-mineral oil ophthalmic ointment (Soothe Lubricant Eye Night Time Ointment) BOTH EYES PRN *A review of daily goals, interventions, and plan of care with the multidisciplinary team and patient has been conducted. The patient?s concerns have been addressed and he/she agrees to proceed with today?s plan of care. [facility] 10-09-2023 Note HNO ID: [id number] Author: Paulette Jade MD Service: General Surgery Author Type: Resident Type: Plan of Care Filed: 10/09/2023 8:14 PM Note Text: Plan of care: The follow-up patient's hemoglobin was stable at 8.5 at 2:27 p.m.. However the patient was still complaining of orthostatic hypotension, patient felt dizzy and lightheaded when she was trying to get to the bathroom. Urine output 550 following removal of Greco earlier today. So the decision was to transfuse 1 more unit of packed RBCs. Plan discussed with Dr. Lopez and Dr. Murphy (PGY 5 senior resident) Paulette Jade MD General Surgery Resident, PGY-1 [facility] 10-09-2023 Note HNO ID: [id number] Author: Brice Rivas MD Service: General Surgery Author Type: Fellow Type: Progress Notes Filed: 10/09/2023 9:21 AM Note Text: BREAST SURGICAL ONCOLOGY POSTOP PROGRESS NOTE SERVICE DATE: 10/09/2023 SERVICE TIME: 08:32 SUBJECTIVE: No acute events overnight. Yesterday patient returned to the OR for evacuation of left chest wall hematoma with washout. She tolerated the procedure well. She was also given 1 unit pRBC's for hypotensive episodes associated with her drop in hgb. This am patient is overall doing well- pain is well controlled, BP and UOP improved and no recurrent episodes of lightheadedness. Greco catheter was removed this am. No PO intake since OR but waiting for breakfast. Drain OP overnight about 80 ml but was able to milk the drain and an additional 180 mL was evacuated. Once this was removed, the drain OP slowed significantly. OBJECTIVE: BP: 122/47 Temp: 36.6 ?C (97.9 ?F) Temp src: Axillary Pulse: 80 Resp: 21 O2 Therapy: Continuous Positive Airway Pressure SpO2: 95 % Output by Drain (mL) 10/07/23 0700 - 10/07/23 1459 10/07/23 1500 - 10/07/23 2259 10/07/23 2300 - 10/08/23 0659 10/08/23 0700 - 10/08/23 1459 10/08/23 1500 - 10/08/23 2259 10/08/23 2300 - 10/09/23 0659 10/09/23 0700 - 10/09/23 0858 Patient has no LDAs of requested type attached. Gen: In bed, daughter at bedside, NAD HEENT: EOMI CVS: RRR RESP: no labored breathing, O2 SAT 95% RA CHEST: Left chest wall incision c/d/I with skin glue, no hematoma, no seroma, flaps viable, echymosis over the left upper outer flap towards the shoulder as seen previously, Cesar drain x [address]- with dark brown OP (stained from surgicel powder) -daily OP 260 mL ABD: soft : voiding well EXT: SCD's BLE ASSESSMENT: POD#2 s/p Left breast simple mastectomy and SLNB for IDC complicated but LEFT chest hematoma, POD #1 s/p take-back for hematoma evacuation and washout PLAN: Regular diet as tolerated Continue IV fluids until discharge. BUN/Cr down trending 27/1.9>24/1.4 Encouraged ample water intake for the first few days after discharge. Hgb 8.4 this am (from 8.8 pre-op) s/p 1 unit pRBC. Repeat this afternoon to confirm stability after OR. UOP improved overnight, now > .5mL/kg/hr. Greco catheter removed, trial void Continue multimodal pain control, limit narcotic use. Ice pack to left chest operative site Continue to monitor drain OP volume and character, maintain bulb suction Drain teaching Empiric IV Ancef, transition to PO Duricef after discharge SCD's OOB / Walk in halls as tolerated / Incentive spirometer Dispo: Likely d/c this afternoon if able to void, tolerate PO and repeat hgb demonstrates stability. SIGNATURE: Brice Rivas MD PATIENT NAME: Ramona Villegas DATE: October 09, 2023 TIME: 8:51 AM PAGER/CONTACT #: [phone] ETX#[id number] [facility] 10-09-2023 Note HNO ID: [id number] Author: Shakir Ji MD Service: General Surgery Author Type: Resident Type: Progress Notes Filed: 10/09/2023 9:21 AM Note Text: GENERAL SURGERY PROGRESS NOTE NAME: Ramona Villegas 10/09/2023 8:47 AM 1 Day Post-Op Interval: S/p left breast hematoma evacuation Has remained normotensive since surgery Hgb stable this AM JPs with 300cc SS with clots Pain well controlled AANDP: Ramona Villegas is a 63 year old female with history of ZEYNEP, HTN, left breast CA who is s/p left simple mastectomy and sentinel lymph node mapping on 10/07. Course complicated by left breast hematoma now 1 Day Post-Op s/p left breast re-exploration and hematoma evacuation. Clinically stable and doing well. PLAN - f/u PM labs - Multimodal pain control - Regular diet, will HLIV if tolerating - Strict I/Os, monitor drain output - Please keep left arm elevated at all times - Dispo: Possibly home today if tolerating diet and labs stable *Discussed with staff Dr. John Ji MD General Surgery PGY-2 [facility] (General Surgery) pager: [phone] Between 6p-6a or Sat/Sun, please page general surgery national sales trainer [phone] On exam: BP (!) 122/47 Pulse 80 Temp 36.6 ?C (97.9 ?F) (Axillary) Resp 21 Ht 167.6 cm (5' 6 ) LMP 07/25/2015 SpO2 95% BMI 46.48 kg/m? Gen: NAD CV: extremities warm and well perfused, pulse regular Pulm: no increased work of breathing on CPAP Non labored breathing Incisions: Well approximated, no evidence of hematoma. Some jaqueline-incisional ecchymosis. RODERICK x2 in place both SS Labs: CBC, BMP, MG, PHOS Recent Labs 10/09/23 0707 10/08/23 1535 10/08/23 1016 10/08/23 0258 10/07/235 10/07/23 2157 10/07/23 1150 09/23/23 1313 WBC -- 12.44* 12.31* 14.23* -- 19.66* -- -- HB -- 8.8* 8.7* 10.3* -- 11.9 -- -- HCT -- 25.5* 25.4* 30.3* -- 34.8* -- -- PLT -- 139* 141* 148* -- 224 -- -- NA 138 135* -- -- 136 -- -- 139 K 3.7 3.6* -- -- 3.4* -- 3.3* 3.3* CHLOR 103 100 -- -- 99 -- -- 102 CO2 23 22 -- -- 20* -- -- 31* BUN 24* 27* -- -- 17 -- -- 14 CREAT 1.40* 1.93* -- -- 1.53* -- -- 1.14* GLUC 164* 129* -- -- 205* -- -- 90 CA 7.6* 7.8* -- -- 8.2* -- -- 9.6 Liver Function, Amylase, AND Lipase Recent Labs 10/09/23 0707 10/08/23 1535 10/08/23 0055 10/07/23 2215 09/20/23 1445 TPROT 5.1* 5.3* -- 6.0* 7.2 ALB 3.1* 3.2* -- 3.6* 4.4 ALT 9 13 -- 21 27 AST 18 20 -- 24 21 ALKPHOS 40 43 -- 59 89 TBILI 0.8 0.8 -- 1.3 1.5* LACT -- -- 2.6* -- -- Coags Recent Labs 10/08/23 1535 INR 1.0 Cardiac Enzymes Intake and Output: Date 10/08/23 07 - 10/09/23 0659 10/09/23 07 - 10/10/23 0659 Shift 9408-9912 1151-7691 8038-9729 24 Hour Total 7776-6690 2205-0122 8250-8665 24 Hour Total INTAKE IV 3118 897 7998 950 950 Volume (mL) (lactated ringers 1,000 mL iv bolus) 1000 1000 Volume (mL) (ceFAZolin iv piggyback 2 g in D5W (iso-osmotic) 100 mL (ANCEF)) 100 100 Volume (mL) (lactated ringers iv infusion) 500 500 Volume (mL) (NaCl 0.9% iv infusion) 200 200 Volume (mL) (lactated ringers iv infusion) 950 950 Blood Products 350 350 Infusion Complete Volume (mL) (RBC Transfusion Instruction) 350 350 Shift Total 1100 1050 2150 950 950 OUTPUT Urine 200 7670 286 8282 300 300 Void (ml) 200 200 OR Urine Output 600 600 Output ([REMOVED] Indwelling Urinary Catheter 10/08/23 1736 Greco 16 Fr 10/09/23 0739) 508 364 6439 300 300 Tubes 310 75 385 260 260 Drain/Tube Output ([REMOVED] Drain/Tube 10/07/23 1532 [facility] Cesar Left Lower Breast Drain #1 10/08/23 174) 130 130 Drain/Tube Output ([REMOVED] Drain/Tube 10/07/23 1532 [facility] Cesar Left Breast Drain #2 10/08/23 174) 180 180 Drain/Tube Output (Drain/Tube 10/08/23 183 Eliazar Steve Left Lower Breast Drain #1) 15 15 0 0 Drain/Tube Output (Drain/Tube 10/08/23 1833 Eliazar Steve Left Lateral;Lower Breast Drain #2) 60 60 260 260 Blood 50 50 Estimated Blood loss 50 50 Shift Total 510 1053 222 3577 560 560 Weight (kg) Current Medications: Current Facility-Administered Medications Medication Dose Route Frequency NaCl 0.9% iv flush bag 20 mL INTRAVENOUS PRN acetaminophen 650 mg tab(s) (TYLENOL) 650 mg ORAL q 6 H PRN HYDROcodone 5 mg - acetaminophen 325 mg tablet (NORCO) 1 tablet ORAL q 6 H PRN morphine 2 mg injection 2 mg INTRAVENOUS q 4 H PRN ondansetron 4 mg tab(s) (ZOFRAN) 4 mg ORAL q 6 H PRN Or ondansetron (PF) 4 mg injection (ZOFRAN) 4 mg INTRAVENOUS q 6 H PRN metoprolol succinate ER 100 mg tab(s) (TOPROL XL) 100 mg ORAL DAILY FLUoxetine 20 mg cap(s) (PROzac) 20 mg ORAL DAILY ceFAZolin iv piggyback 2 g in D5W (iso-osmotic) 100 mL (ANCEF) 2 g INTRAVENOUS ONCE lactated ringers iv infusion 100 mL/hr INTRAVENOUS CONTINUOUS potassium chloride 40 mEq oral powder (KLOR-CON) 40 mEq ORAL ONCE *A review of daily goals, interventions, and plan of care with the multidisc (more content not included)... [facility] 10-08-2023 Note HNO ID: [id number] Author: Janie Castro APRN.AIR REDUCTION EQUIPMENT OPERATOR Service: Anesthesiology Author Type: Nurse Car Park Attendant Type: Anesthesia Procedure Notes Filed: 10/08/2023 5:47 PM Note Text: ANESTHESIOLOGY PROCEDURE NOTE PIV General Information Procedure Start Time/Medication Administration: 10/08/2023 5:39 PM Patient Location: OR Staffing Anesthesiologist: Sarah Jameson MD Performed by: anesthesiologist Preparation Sterility Preparation: hand hygiene performed prior to procedure, surgical cap used, mask used, skin prep agent completely dried prior to procedure Site Prep: Chloraprep Procedure Details Indication: need for IV access Needle Size/Type: 20 gauge angiocath Orientation: Left Location: Wrist Imaging Guidance Used: No SIGNATURE: Janie Floyd APRN.AIR REDUCTION EQUIPMENT OPERATOR PATIENT NAME: Ramona Villegas DATE: October 08, 2023 TIME: 5:47 PM CSN: [id number] [facility] 10-08-2023 Note HNO ID: [id number] Author: Janie Castro APRN.AIR REDUCTION EQUIPMENT OPERATOR Service: Anesthesiology Author Type: Nurse Car Park Attendant Type: Anesthesia Procedure Notes Filed: 10/08/2023 5:47 PM Note Text: ANESTHESIOLOGY PROCEDURE NOTE Airway General Information Procedure Start Time/Medication Administration: 10/08/2023 5:35 PM Patient location during procedure: OR Staffing AIR REDUCTION EQUIPMENT OPERATOR: Janie Castro APRN.AIR REDUCTION EQUIPMENT OPERATOR Performed by: ALIYA Indications and Patient Condition Indications for airway management: anesthesia Preoxygenated: yes anesthesia circuit Patient position: sniffing Method: asleep Difficult Mask: No Final Airway Details Final airway type: endotracheal airway Final Endotracheal Airway: ETT Cuffed: yes Successful intubation technique: direct laryngoscopy Devices used: Glidescope (poor neck ROM. short TMD. thick neck) Endotracheal tube insertion site: oral Blade size: #4 ETT size (mm): 7.5 Measured from: lips Measurement (cm): 22 Placement verified by: capnometry Cormack-Lehane Classification: grade I - full view of glottis Number of attempts at approach: 1 Airway not difficult SIGNATURE: Janie Floyd APRN.AIR REDUCTION EQUIPMENT OPERATOR PATIENT NAME: Ramona Villegas DATE: October 08, 2023 TIME: 5:46 PM CSN: [id number] [facility] 10-08-2023 Note HNO ID: [id number] Author: Harper Lopez DO Service: General Surgery Author Type: Physician Type: Progress Notes Filed: 10/08/2023 5:03 PM Note Text: I saw the patient this morning at 8:00a m when the resident called to state she had RODERICK output that was concerning. Events of overnight noted. Patient seen and examined. Mastectomy site at that time with a small amout of fluctuance medially. Wrapped with MINERVA wrap Ice applied. Labs noted. Vitals stable She has been monitored throughout the day. Low UOP. RODERICK drains noted EXAM now LEFT mastectomy site with moderate amount of fluctuance now. Discussed with patient and family. Will return to OR for hematoma washout and evaluation of potential bleeding site. Will transfuse 1 unit PRBC (Hg 14 to 8.8) pt symptomatic. Harper Lopez DO Breast Surgeon [facility] 10-08-2023 Note HNO ID: [id number] Author: Brice Rivas MD Service: General Surgery Author Type: Fellow Type: Plan of Care Filed: 10/08/2023 12:34 PM Note Text: BREAST SURGERY UPDATE Repeat hgb this morning 8.7 (down from a baseline of 14). Re-examined at bedside. BP improved to 140's. Left chest wall incision intact. Ecchymosis unchanged. Slight increase in swelling. MINERVA wrap replaced with fluff gauze for compression. Able to stand up with assistance without recurrence of lightheadedness as previously described. Patient able to void on the commode 200 mL. Cesar drain OP decreasing although still higher than expected: 90 cc/4 hr dark SS. PLAN: Maintain NPO at this time. Will re-check hgb at 15:00. If hgb continues to downtrend, will re-evaluate for take-back to OR Brice Rivas MD [facility] 10-08-2023 Note Education (BELEN) RAMONA VILLEGAS ([id number]) 1960 F Date Time Provider Department 10/08/23 EMY BURKETT Reason for Visit: Education Of Patient/family [[id number]] During your visit today, we recorded the following information about you: Allergies As of Date: 10/08/2023 (No Known Allergies) Date Reviewed: 10/08/2023 Reviewed by: Tara Hernandez, RN - Fully Assessed Prescriptions as of 10/08/2023 - oxyCODONE IR (ROXICODONE) 5 mg immediate release tablet Take 1 tablet by mouth every 6 hours as needed for pain for up to 3 days. - cefADROxil (DURICEF) 500 mg capsule Take 1 capsule by mouth two times a day for 10 days. - rosuvastatin (CRESTOR) 10 mg tablet Take 1 tablet by mouth daily at bedtime. - FLUoxetine (PROZAC) 20 mg capsule Take 1 capsule by mouth once daily. - hydroCHLOROthiazide 25 mg tablet take 1 tablet daily - Syringe with Needle, Safety 3 mL 23 gauge x 1 1 Each once every month. With B-12 injections Luerlock - CPAP/BIPAP/OTHER Type .CPAPSettings into a note to see current settings/supplies/DME information. - celecoxib (CELEBREX) 200 mg capsule Take 1 capsule by mouth once daily. - metoprolol succinate ER (TOPROL XL) 100 mg Take 1 tablet by mouth once daily. - Cholecalciferol, Vitamin D3, 125 mcg (5,000 unit) cap Take 1 capsule by mouth once daily. - naproxen (NAPROSYN) 500 mg tablet Take 1 tablet by mouth twice daily as needed (for pain/inflammation). Take with food. - amLODIPine (NORVASC) 2.5 mg tablet Take 1 tablet by mouth once daily. - cyanocobalamin 1,000 mcg/mL Inject 1 mL intramuscularly once every month. - CPAP/BIPAP/OTHER Type .CPAPSettings into a note to see current settings/supplies/DME information. - CPAP Mask refitting when eligible, suitable mask per pt preference, chin strap, head gear, humidity, tubing, lifetime supplies. G47.33 Obstructive Sleep Apnea - CPAP 1 Device daily at bedtime. Auto PAP with Settings 10-20 cm H2O, suitable mask per pt preference, chin strap, head gear, humidity, tubing, lifetime supplies. G47.33 Obstructive Sleep Apnea. Current machine broken beyond repair. - CPAP AutoPAP 10-20 cmH2O, suitable mask, humidity, filters, chin strap. Lifetime supplies. Dx: 327.23. compliance rpt to Dr. Miller in 6 wks. Facility-Administered Medications as of 10/08/2023 - lactated ringers 1,000 mL iv bolus - potassium chloride 40 mEq oral powder (KLOR-CON) - NaCl 0.9% iv flush bag - lactated ringers iv infusion - acetaminophen 650 mg tab(s) (TYLENOL) - HYDROcodone 5 mg - acetaminophen 325 mg tablet (NORCO) - morphine 2 mg injection - ondansetron 4 mg tab(s) (ZOFRAN) - ondansetron (PF) 4 mg injection (ZOFRAN) - ceFAZolin iv piggyback 2 g in D5W (iso-osmotic) 100 mL (ANCEF) - metoprolol succinate ER 100 mg tab(s) (TOPROL XL) - amLODIPine 2.5 mg tab(s) (NORVASC) - FLUoxetine 20 mg cap(s) (PROzac) - hydroCHLOROthiazide 25 mg tab(s) Meds Comments as of 09/13/2018: Stephanie haynesn by Dr. Mccabe Encounter Status:Closed by EMY BURKETT on 10/08/23 [facility] 10-08-2023 Note HNO ID: [id number] Author: Emy Burkett RN Service: ? Author Type: Registered Nurse Type: Progress Notes Filed: 10/08/2023 9:16 AM Note Text: Visit made to the bedside, patient resting in bed with daughter at bedside. Dr. Rivas, RN and aide present obtaining vitals. Education provided. Drain pouch provided, patient has gift bag. Patient is aware breast nurse navigator will call patient on Wednesday for post-op follow-up assessment. Emy Burkett RN [facility] 10-08-2023 Note HNO ID: [id number] Author: Raya Sosa MD Service: General Surgery Author Type: Resident Type: Progress Notes Filed: 10/08/2023 2:48 PM Note Text: GENERAL SURGERY PROGRESS NOTE NAME: Ramona Villegas 10/08/2023 2:42 PM 1 Day Post-Op Interval: low blood pressure overnight Steadily downtrending hemoglobin No ecchymosis or evidence of hematoma RODERICK frankly bloody Pain well controlled AANDP: Ramona Villegas is a 63 year old female with history of ZEYNEP, HTN who is now s/p left simple mastectomy and sentinel lymph node mapping on 10/07. PLAN: - NPO - Follow drain output - Serial breast exams to check for hematoma - Vitals q4 - FU CBC at 8am - Continue drains - Possible OR if continues to bleed Discussed with Dr Lopez Signature: Raya Barnett MD General Surgery Resident Date: 10/08/2023 Time: 2:42 PM On exam: BP 147/62 Pulse 80 Temp 36.8 ?C (98.2 ?F) (Oral) Resp 18 Ht 167.6 cm (5' 6 ) LMP 07/25/2015 SpO2 94% BMI 46.48 kg/m? Gen: NAD CV: extremities warm and well perfused, pulse regular Pulm: no increased work of breathing on CPAP Non labored breathing Incisions: clean and dry no ecchymosis or hematoma. RODERICK frankly bloody Labs: CBC, BMP, MG, PHOS Recent Labs 10/08/23 1016 10/08/23 0258 10/07/235 10/07/23 2157 10/07/23 1150 09/23/23 1313 09/20/23 1445 11/14/22 1027 WBC 12.31* 14.23* -- 19.66* -- -- 8.51 8.88 HB 8.7* 10.3* -- 11.9 -- -- 14.1 14.6 HCT 25.4* 30.3* -- 34.8* -- -- 40.5 42.6 PLT 141* 148* -- 224 -- -- 163 195 NA -- -- 136 -- -- 139 139 139 K -- -- 3.4* -- 3.3* 3.3* 2.9* 3.6* CHLOR -- -- 99 -- -- 102 100 102 CO2 -- -- 20* -- -- 31* 26 24 BUN -- -- 17 -- -- 14 18 15 CREAT -- -- 1.53* -- -- 1.14* 1.15* 1.01* GLUC -- -- 205* -- -- 90 125* 103* CA -- -- 8.2* -- -- 9.6 9.9 9.1 Liver Function, Amylase, AND Lipase Recent Labs 10/08/23 0055 10/07/23 2215 09/20/23 1445 11/14/22 1027 05/22/21 0932 TPROT -- 6.0* 7.2 6.9 7.0 ALB -- 3.6* 4.4 4.0 4.1 ALT -- 21 27 19 17 AST -- 24 21 21 21 ALKPHOS -- 59 89 78 69 TBILI -- 1.3 1.5* 0.9 1.1 LACT 2.6* -- -- -- -- Coags No results for input(s): APTT , PT , INR in the last 37563 hours. Cardiac Enzymes Intake and Output: Date 10/07/23 07 - 10/08/23 0659 10/08/23 07 - 10/09/23 0659 Shift 2203-7381 7307-4027 1997-9218 24 Hour Total 4572-7963 4271-3466 9815-3991 24 Hour Total INTAKE IV 210 1000 1210 1100 1100 Volume (mL) (lactated ringers 1,000 mL iv bolus) 1000 1000 Volume (mL) (magnesium sulfate 2 g in NaCl 0.9% 100 mL) 100 100 Volume (mL) (ceFAZolin iv piggyback 2 g in D5W (iso-osmotic) 100 mL (ANCEF)) 110 110 Volume (mL) (ceFAZolin iv piggyback 2 g in D5W (iso-osmotic) 100 mL (ANCEF)) 100 100 Volume (mL) (lactated ringers iv infusion) 200 200 Volume (mL) (lactated ringers iv infusion) 800 800 Shift Total 210 1000 1210 1100 1100 OUTPUT Urine 200 200 Void (ml) 200 200 Tubes 305 180 485 310 310 Drain/Tube Output (Drain/Tube 10/07/23 1532 [facility] Cesar Left Lower Breast Drain #1) 190 70 260 130 130 Drain/Tube Output (Drain/Tube 10/07/[address] [place] [address] Cesar Left Breast Drain #2) 115 110 225 180 180 Blood 30 30 Estimated Blood loss 30 30 Shift Total 335 180 515 510 510 Weight (kg) Current Medications: Current Facility-Administered Medications Medication Dose Route Frequency NaCl 0.9% iv flush bag 20 mL INTRAVENOUS PRN lactated ringers iv infusion 150 mL/hr INTRAVENOUS CONTINUOUS acetaminophen 650 mg tab(s) (TYLENOL) 650 mg ORAL q 6 H PRN HYDROcodone 5 mg - acetaminophen 325 mg tablet (NORCO) 1 tablet ORAL q 6 H PRN morphine 2 mg injection 2 mg INTRAVENOUS q 4 H PRN ondansetron 4 mg tab(s) (ZOFRAN) 4 mg ORAL q 6 H PRN Or ondansetron (PF) 4 mg injection (ZOFRAN) 4 mg INTRAVENOUS q 6 H PRN metoprolol succinate ER 100 mg tab(s) (TOPROL XL) 100 mg ORAL DAILY amLODIPine 2.5 mg tab(s) (NORVASC) 2.5 mg ORAL DAILY FLUoxetine 20 mg cap(s) (PROzac) 20 mg ORAL DAILY hydroCHLOROthiazide 25 mg tab(s) 25 mg ORAL DAILY *A review of daily goals, interventions, and plan of care with the multidisciplinary team and patient has been conducted. The patient?s concerns have been addressed and he/she agrees to proceed with today?s plan of care. [facility] 10-08-2023 Note HNO ID: [id number] Author: Chintan Emery MD Service: General Surgery Author Type: Resident Type: Plan of Care Filed: 10/08/2023 12:51 AM Note Text: General Surgery Plan of Care Paged for BP of 76/50. Evaluated patient at bedside. Was informed by nursing team that earlier in the night, the patient felt light-headed while standing up to go to the bathroom. She sat down which improved her light-headedness but this again worsened when she stood back up. A rapid response was called and the surgery team was not notified. During the rapid response, the patient was given a 500cc bolus after it was noted she had a soft BP with MAP >65. A CBC and CMP were ordered. Hgb was 11.9 from 14.1 two weeks ago. Cr increased to 1.5. Patient no longer feels light-headed because she is lying down but when she sits up she feels light-headed. Her L chest feels sore but is not overly tender. On exam, she has no hematoma and there is minimal bruising. The incision is clean, dry, and intact and the skin is soft. Her drains output is bloody and there has been 230cc and 205cc of output tonight from her two drains. Rechecked blood pressure and it was 87/39 with a normal HR of 73. Ordered a 1L LR bolus, tele, and a CBC recheck for 0200. Will have BP re-checked after bolus is complete. Chintan Emery MD General Surgery Resident, PGY-2 For team paging 6AM-6PM during weekdays: [facility] (Trauma, General Surgery): [phone] [facility] (Bariatrics, HPB) : [phone] [facility]: [phone] [facility]: [phone] [facility]: [phone] For team paging after 6PM or on weekend / holidays: [phone] [facility] 10-07-2023 Note HNO ID: [id number] Author: Digna Noel APRN.AIR REDUCTION EQUIPMENT OPERATOR Service: Nursing Author Type: Nurse Car Park Attendant Type: Anesthesia Procedure Notes Filed: 10/07/2023 2:34 PM Note Text: ANESTHESIOLOGY PROCEDURE NOTE Airway General Information Procedure Start Time/Medication Administration: 10/07/2023 1:57 PM Patient location during procedure: OR Patient identity confirmed: arm band and care steam cleaner Staffing Anesthesiologist: Sarah Jameson MD AIR REDUCTION EQUIPMENT OPERATOR: Digna Noel APRN.AIR REDUCTION EQUIPMENT OPERATOR Performed by: AIR REDUCTION EQUIPMENT OPERATOR Indications and Patient Condition Indications for airway management: anesthesia Preoxygenated: yes anesthesia circuit Patient position: ramp Method: sleep Difficult Mask: No Airway Accessory: oral airway Final Airway Details Final airway type: endotracheal airway Final Endotracheal Airway: ETT Cuffed: yes Successful intubation technique: video laryngoscopy Devices used: Glidescope and intubating stylet Endotracheal tube insertion site: oral Blade size: #4 ETT size (mm): 7.0 Measured from: lips Measurement (cm): 22 Placement verified by: chest auscultation and capnometry Cormack-Lehane Classification: grade IIa - partial view of glottis Number of attempts at approach: 1 Airway not difficult Comments Dentition same as preop SIGNATURE: Digna Noel APRN.AIR REDUCTION EQUIPMENT OPERATOR PATIENT NAME: Ramona Villegas DATE: October 07, 2023 TIME: 2:32 PM CSN: [id number] [facility] 10-07-2023 Note HNO ID: [id number] Author: Michael Mosley, Nuclear Tech Service: Nuclear Medicine Author Type: Casket Coverer Type: Progress Notes Filed: 10/07/2023 2:11 PM Note Text: RADIOLOGY SERVICE PROGRESS NOTE SERVICE DATE: 10/07/2023 SERVICE TIME: 2:09 PM PATIENT IDENTITY VERIFICATION COMPLETED USING TWO (2) STANDARD IDENTIFIERS: Name and Date of confirmed by patient verbally FALL SCREENING: Has the patient had 2 falls in the last year or 1 fall with injury or currently using an Ambulatory Assistive Device (Walker, Cane, Wheelchair, Crutches, etc.)? No PATIENT GENDER DATA: .female : No ALLERGIES: Reviewed and unchanged MEDICATIONS REVIEWED: Yes PATIENT RELEVANT IMPLANT DATA REVIEWED: Yes CREATININE: Creatinine Date Value Ref Range Status 09/23/2023 1.14 (H) 0.58 - 0.96 mg/dL Final 09/20/2023 1.15 (H) 0.58 - 0.96 mg/dL Final 11/14/2022 1.01 (H) 0.58 - 0.96 mg/dL Final Estimated Glomerular Filtration Rate Date Value Ref Range Status 09/23/2023 55 (L) >=60 mL/min/1.73m? Final Comment: Estimated Glomerular Filtration Rate (eGFR) is calculated using the 2020 CKD-EPI creatinine equation. This equation utilizes serum creatinine, sex, and age as parameters. The creatinine assay has traceable calibration to isotope dilution-mass spectrometry. Refer to KDIGO guidelines for clinical interpretation. In patients with unstable renal function, e.g. those with acute kidney injury, the eGFR may not accurately reflect actual GFR. eGFR- Date Value Ref Range Status 05/22/2021 >60 Final P.O.C.T. RESULTS: N/A October 07, [address] PERFORMED: No IV SITE: Ambulatory: Not applicable POST EXAM PIV STATUS: Not applicable PROCEDURE TYPE: NM INJECT: SENTINEL LYMPH NODE INJECTION TO LEFT BREAST BY DR. LOPEZ. 500 microcuries Tc99m Lymphoseek. No other medications given.. ADMINISTRATION TIME: 1400 PATIENT DISCHARGED TO: Ambulatory patient, left NM department area. A Diagnostic radioactive procedure has taken place, with no further precautions necessary other than routine body substance precautions. More information regarding radiation safety can be found using this link: [email or web address] SIGNATURE: Michael Mosley [place] PATIENT NAME: Ramona Villegas DATE: October 07, 2023 TIME: 2:09 PM PAGER/CONTACT #: [facility] 10-07-2023 Note Education ([facility]) RAMONA VILLEGAS ([id number]) 1960 F Date Time Provider Department 10/07/23 EMY BURKETT Reason for Visit: Education Of Patient/family [904] During your visit today, we recorded the following information about you: Allergies As of Date: 10/07/2023 (No Known Allergies) Date Reviewed: 09/30/2023 Reviewed by: Sanam Eller LPN - Fully Assessed Prescriptions as of 10/07/2023 - rosuvastatin (CRESTOR) 10 mg tablet Take 1 tablet by mouth daily at bedtime. - FLUoxetine (PROZAC) 20 mg capsule Take 1 capsule by mouth once daily. - hydroCHLOROthiazide 25 mg tablet take 1 tablet daily - Syringe with Needle, Safety 3 mL 23 gauge x 1 1 Each once every month. With B-12 injections Luerlock - CPAP/BIPAP/OTHER Type .CPAPSettings into a note to see current settings/supplies/DME information. - celecoxib (CELEBREX) 200 mg capsule Take 1 capsule by mouth once daily. - metoprolol succinate ER (TOPROL XL) 100 mg Take 1 tablet by mouth once daily. - Cholecalciferol, Vitamin D3, 125 mcg (5,000 unit) cap Take 1 capsule by mouth once daily. - naproxen (NAPROSYN) 500 mg tablet Take 1 tablet by mouth twice daily as needed (for pain/inflammation). Take with food. - amLODIPine (NORVASC) 2.5 mg tablet Take 1 tablet by mouth once daily. - cyanocobalamin 1,000 mcg/mL Inject 1 mL intramuscularly once every month. - CPAP/BIPAP/OTHER Type .CPAPSettings into a note to see current settings/supplies/DME information. - CPAP Mask refitting when eligible, suitable mask per pt preference, chin strap, head gear, humidity, tubing, lifetime supplies. G47.33 Obstructive Sleep Apnea - CPAP 1 Device daily at bedtime. Auto PAP with Settings 10-20 cm H2O, suitable mask per pt preference, chin strap, head gear, humidity, tubing, lifetime supplies. G47.33 Obstructive Sleep Apnea. Current machine broken beyond repair. - CPAP AutoPAP 10-20 cmH2O, suitable mask, humidity, filters, chin strap. Lifetime supplies. Dx: 327.23. compliance rpt to Dr. Miller in 6 wks. Meds Comments as of 09/13/2018: Stephanie prn by Dr. Mccabe Encounter Status:Closed by EMY BURKETT on 10/07/23 [facility] 10-07-2023 Note HNO ID: [id number] Author: Emy Burkett, RN Service: ? Author Type: Registered Nurse Type: Progress Notes Filed: 10/07/2023 10:57 AM Note Text: BREAST HEALTH NURSE POST-OPERATIVE DISCHARGE INSTRUCTIONS Prior to the patient's discharge from the hospital, the breast health nurse initiated post-op education with the patient. Gift bag was placed in pre-op area, nursing staff will place in patient locker when she arrives. Breast nurse navigator will follow-up tomorrow for post-op follow-up assessment. The patient was given the following: Heart shaped pillow -Yes Meditative book -Yes Support group information -Yes Patient will be contacted by phone to evaluate for further educational and emotional support needs. Emy Burkett RN [facility] 09-30-2023 [facility] RAMONA VILLEGAS ([id number]) 1960 F Date Time Provider Department 09/30/23 SANAM ELLER [facility] Reason for Visit: Patient Education [91] Cmt: LEFT mastectomy with SN bx/mapping Visit Notes: >> Sanam Eller LPN Jennifer Sep 30, 2023 10:43 AM Status: Signed AMBULATORY PATIENT EDUCATION NOTE TOPIC: LEFT mastectomy with SN bx/mapping READINESS TO LEARN COGNITIVE ABILITY: Alert and oriented MOTIVATION TO LEARN: Interested FAMILY SUPPORT: Low - Inconsistent family involvement INSTRUCTION PROVIDED TO: Patient PATIENT LEARNS BEST BY: Multiple Methods FACTORS AFFECTING LEARNING: None PHYSICAL LIMITATIONS AFFECTING LEARNING: None LEARNING RESPONSE DIAGNOSIS: C50.412 METHOD OF INSTRUCTION: Individual instruction Written instruction - handouts Verbal instruction PATIENT / FAMILY RESPONSE: Verbalizes understanding of: DRAIN CARE- Correct procedure to perform drain care INFECTION MANAGEMENT-Signs and symptoms of an infection and importance of contacting the physician MEDICATION PRESCRIBED-Accurate knowledge of prescribed medication prior to discharge MEDICATION ROUTE-Correct route for administration of the prescribed medication MEDICATION SIDE EFFECTS-Side effects associated with the medication that warrant a call to the physician PAIN MANAGEMENT-Effective strategies to manage pain in addition to pain medication PHYSICAL RESTRICTIONS-Physical restrictions and recommendations after discharge from the hospital POST-OPERATIVE INSTRUCTIONS-Correct actions to take to reduce postoperative complications PRE-OPERATIVE INSTRUCTIONS-Correct action to take to follow pre-operative instructions PATIENT SAFETY PRINCIPLES SYMPTOM MANAGEMENT-Correct actions to take to manage symptoms associated with his/her disease/illness VTE prevention measures WORSENING CONDITION-Signs and symptoms of a worsening condition that warrant a call to the physician WOUND CARE-Correct procedure to perform wound care FOLLOW-UP PLAN: Patient instructed to call with any further issues SUPPLEMENTAL MATERIAL: Your Surgical Guide for [facility] REFERRAL (RECOMMENDATION): None Electronically Signed By: Sanam Eller LPN In Department: [facility] Time spent on patient education: 20 minutes. Primary Visit Diagnosis:Malignant neoplasm of upper-outer quadrant of left breast in female, estrogen receptor positive (HCC) (HCC) [C50.412, Z17.0] During your visit today, we recorded the following information about you: Allergies As of Date: 09/30/2023 (No Known Allergies) Date Reviewed: 09/30/2023 Reviewed by: Sanam Eller LPN - Fully Assessed Prescriptions as of 09/30/2023 - rosuvastatin (CRESTOR) 10 mg tablet Take 1 tablet by mouth daily at bedtime. - FLUoxetine (PROZAC) 20 mg capsule Take 1 capsule by mouth once daily. - hydroCHLOROthiazide 25 mg tablet take 1 tablet daily - Syringe with Needle, Safety 3 mL 23 gauge x 1 1 Each once every month. With B-12 injections Luerlock - CPAP/BIPAP/OTHER Type .CPAPSettings into a note to see current settings/supplies/DME information. - celecoxib (CELEBREX) 200 mg capsule Take 1 capsule by mouth once daily. - metoprolol succinate ER (TOPROL XL) 100 mg Take 1 tablet by mouth once daily. - Cholecalciferol, Vitamin D3, 125 mcg (5,000 unit) cap Take 1 capsule by mouth once daily. - naproxen (NAPROSYN) 500 mg tablet Take 1 tablet by mouth twice daily as needed (for pain/inflammation). Take with food. - amLODIPine (NORVASC) 2.5 mg tablet Take 1 tablet by mouth once daily. - cyanocobalamin 1,000 mcg/mL Inject 1 mL intramuscularly once every month. - CPAP/BIPAP/OTHER Type .CPAPSettings into a note to see current settings/supplies/DME information. - CPAP Mask refitting when eligible, suitable mask per pt preference, chin strap, head gear, humidity, tubing, lifetime supplies. G47.33 Obstructive Sleep Apnea - CPAP 1 Device daily at bedtime. Auto PAP with Settings 10-20 cm H2O, suitable mask per pt preference, chin strap, head gear, humidity, tubing, lifetime supplies. G47.33 Obstructive Sleep Apnea. Current machine broken beyond repair. - CPAP AutoPAP 10-20 cmH2O, suitable mask, humidity, filters, chin strap. Lifetime supplies. Dx: 327.23. compliance rpt to Dr. Miller in 6 wks. Meds Comments as of 09/13/2018: Stephanie haynesn by Dr. Mccabe Encounter Status:Closed by SANAM ELLER on 09/30/23 [facility] 09-30-2023 Nurse Note AMBULATORY PATIENT EDUCATION NOTE TOPIC: LEFT mastectomy with SN bx/mapping READINESS TO LEARN COGNITIVE ABILITY: Alert and oriented MOTIVATION TO LEARN: Interested FAMILY SUPPORT: Low - Inconsistent family involvement INSTRUCTION PROVIDED TO: Patient PATIENT LEARNS BEST BY: Multiple Methods FACTORS AFFECTING LEARNING: None PHYSICAL LIMITATIONS AFFECTING LEARNING: None LEARNING RESPONSE DIAGNOSIS: C50.412 METHOD OF INSTRUCTION: Individual instruction Written instruction - handouts Verbal instruction PATIENT / FAMILY RESPONSE: Verbalizes understanding of: DRAIN CARE- Correct procedure to perform drain care INFECTION MANAGEMENT-Signs and symptoms of an infection and importance of contacting the physician MEDICATION PRESCRIBED-Accurate knowledge of prescribed medication prior to discharge MEDICATION ROUTE-Correct route for administration of the prescribed medication MEDICATION SIDE EFFECTS-Side effects associated with the medication that warrant a call to the physician PAIN MANAGEMENT-Effective strategies to manage pain in addition to pain medication PHYSICAL RESTRICTIONS-Physical restrictions and recommendations after discharge from the hospital POST-OPERATIVE INSTRUCTIONS-Correct actions to take to reduce postoperative complications PRE-OPERATIVE INSTRUCTIONS-Correct action to take to follow pre-operative instructions PATIENT SAFETY PRINCIPLES SYMPTOM MANAGEMENT-Correct actions to take to manage symptoms associated with his/her disease/illness VTE prevention measures WORSENING CONDITION-Signs and symptoms of a worsening condition that warrant a call to the physician WOUND CARE-Correct procedure to perform wound care FOLLOW-UP PLAN: Patient instructed to call with any further issues SUPPLEMENTAL MATERIAL: Your Surgical Guide for [facility] REFERRAL (RECOMMENDATION): None Electronically Signed By: Sanam Eller LPN In Department: [facility] Time spent on patient education: 20 minutes. documented in this encounter [facility] 09-20-2023 History and physical note HISTORY AND PHYSICAL EXAMINATION SERVICE DATE: 09/20/2023 SERVICE TIME: 3:26 PM PRIMARY CARE PHYSICIAN: Ted Monroe DO Assessment Patient has the following medical conditions which may affect jaqueline-operative course: Anxiety Assessment: stable on rx per pt Chronic mixed headache syndrome Assessment: otc analgesics as needed Essential hypertension Assessment: controlled on rx Last 14 BP Last 14 Encounter BP Readings: Date: BP: 09/20/2023 128/72 09/20/2023 137/76 09/20/2023 137/76 08/20/2023 146/84 08/03/2023 118/88 12/03/2022 108/64 03/23/2022 133/71 06/04/2021 128/78 06/25/2020 130/76 11/02/2019 132/90 03/17/2019 138/80 09/13/2018 120/60 08/22/2018 136/86 05/05/2018 122/58 Hypercholesterolemia Assessment: c/w statin ZEYNEP (obstructive sleep apnea) Assessment: c/w CPAP, severe per pt, pulse ox will drop when lying prone Osteoarthritis of cervical spine with myelopathy Assessment: on rx, denies any surgical interventions Elevated serum creatinine Assessment: hx Creatinine Date Value Ref Range Status 11/14/2022 1.01 (H) 0.58 - 0.96 mg/dL Final 05/22/2021 1.02 (H) 0.58 - 0.96 mg/dL Final 05/25/2020 1.01 (H) 0.58 - 0.96 mg/dL Final 03/07/2019 1.08 (H) 0.58 - 0.96 mg/dL Final Elevated fasting glucose Assessment: hx, diet controlled Hemoglobin A1C (%) Date Value 11/14/2022 5.1 05/22/2021 5.3 Fatigue Assessment: +chronic Class 3 severe obesity due to excess calories with serious comorbidity and body mass index (BMI) of 45.0 to 49.9 in adult (HCC) Assessment: Body mass index is 46.48 kg/m . Vee Activity Status Index: METS: Climb a flight of stairs or walk up a hill (5.50 METs) DASI Score: 5.5 Patient denies any chest pain or undue shortness of breath with the above physical activity. Clinical Frailty Scale: 3. Well, with treated comorbid disease STOP-Bang Score: Snores loudly Often feels tired, fatigued, or sleepy during the daytime Has been observed to stop breathing or choking/gasping during sleep Has or is being treated for high blood pressure BMI greater than 35 kg/m^2 Patient over 50 years old Has a large neck Non-male patient STOP-Bang Score: 7 [id number] Score: Age: <65 Sex: female CHF history: No Hypertension history: Yes Stroke/TIA/thromboembolism history: No Vascular disease history: No Diabetes history: No [id number] Score: 2 ARISCAT Score: Age: 51-80 Preoperative SpO2: 91-95% Respiratory infection in the last month: No Preoperative anemia: No Surgical incision: peripheral Duration of surgery: 2-3 hrs Emergency procedure: No ARISCAT Score: 27 ANESTHESIA FINDINGS: Intubation History: No history of difficult intubation Significant Anesthesia Considerations: none Airway History: No history of difficult airway I - PHYSICAL EVALUATION AIRWAY Patient intubated: No. Tracheostomy tube not present Mallampati: III. TM distance: >3 FB. Neck ROM: full ROM without neurological symptoms. Mouth opening: adequate. Short neck: no. Thick neck: yes Liao present: no Lip Bite Test: I Microretrognathia/Micronagthia/Rec essed Chin: No DENTAL Dental findings: teeth intact. II - ANESTHESIA PLAN Anesthetic Plan: other Beta Prabhakar Monitoring Plan Post Procedure Analgesic Plan Informed Consent Anesthetic risks, benefits, alternatives, personnel and consent discussed: yes. Patient / Responsible Democrat agrees to proceed: yes Patient / Surrogate agrees to blood products: blood products not planned Discussed the possibility of lip / dental damage: yes REASON FOR VISIT: Ramona Villegas is a 63 year old female who is scheduled for Procedure(s) with comments: MASTECTOMY SIMPLE (Left) INTRAOPERATIVE ID OF SENTINEL LYMPH NODE(S) INCL'D INJECTION OF NON-RAD DYE WHEN PERFORMED (Left) - mapping BIOPSY NODE SENTINEL AXILLARY (Left) - 12:[address] Lopez in OR INJECTION PROCEDURE RADIOACTIVE TRACER FOR IDENTIFICATION OF SENTINEL NODE (Left) at the request of Dr. Harper Lopez for consultation. My final recommendation will be communicated back to the requesting physician by way of shared medical record or letter. Subjective The patient has the following: ACTIVE PROBLEM LIST Hypertension Anxiety Zeynep (Obstructive Sleep Apnea) Class 3 Severe Obesity Due to Excess Calories With Serious Comorbidity and Body Mass Index (Bmi) of 45.0 to 49.9 in Adult (Hcc) Hypersomnia Hypercholesterolemia Elevated Serum Creatinine Elevated Fasting Glucose Essential Hypertension Urethritis Perimenopausal Disorder Vitamin D Deficiency Low Vitamin B12 Level Fatigue Post-Menopausal Bleeding Postmenopausal Symptoms Injury of Right Knee Chronic Pain of Right Knee Dysuria Microhematuria Endometrial Thickening On Ultrasound Osteoarthritis of Cervical Spine With Myelopathy Tension Headache Chronic Mixed Headache Syndrome Wellness Examination Malignant Neoplasm of Upper-Outer Quadrant of Left Breast in Female, Estrogen Receptor Positive (Hcc) Abnormal Mammogram With Microcalcification COVID-19 Immunization Status Overdue - Covid-19 Vaccine () Overdue since 06/11/2023 12/03/2022 Postponed until 12/03/2023 by Vivian Ames LPN (Declined at this time) 07/18/2021 Imm Admin: COVID-19 original vaccine, age 12+ yr, monovalent (PFIZER-BIONTECH - PURPLE TOP) 01/18/2021 Imm Admin: COVID-19 original vaccine, age 12+ yr, monovalent (PFIZER-BIONTECH - PURPLE TOP) Only the first 3 history entries have been loaded, but more history exists. CHIEF COMPLAINT: Pre-op exam HPI: Ramona Villegas is a 63 year old seen for PAC due to scheduled above surgery because of breast cancer. 09/16/2023, Dr. Lopez HISTORY of PRESENT ILLNESS: Ramona Villegas is a 63 year old female who I initially saw in the office 08/27/23 with a LEFT breast 2.5 cm x 2.4 cm x 1.5 cm mass @ 1:00, [address] appear normal. ER+NC+HER2- [id number] RIGHT breast cluster of calcifications upper inner aspect, posterior depth, stereo bx recommended - performed on 09/09/23, benign and concordant - 6 month MMG recommended to demonstrate stability Breast MRI was performed yesterday Patient is here to review the findings and to discuss her surgical options. Presents with her son REVIEW OF SYSTEMS: General: No weight loss, malaise or fevers. Neurological: +chronic fatigue Positive for: headaches (+chronic CURRY's, otc analgesics as needed). Negative for: cerebral palsy, ACCOUNTS RECEIVABLE COLLECTOR tumor, multiple sclerosis, Parkinson's disease, peripheral neuropathy, seizures, TIA and strokes. Respiratory: Positive for: obstructive sleep apnea (severe, oxygen drops when lying prone) and CPAP/BiPAP compliant. Negative for: asthma, COPD, pneumonia within 6 weeks, tobacco use and URI < 2 weeks. Cardiovascular: Positive for: hyperlipidemia (on rx) and hypertension (on rx) Negative for: anticoagulation therapy, arrhythmia, atrial fibrillation, CAD, chest pain, CHF, congenital heart defect, DVT/PE, recent MA, murmur/valvular heart disease, PVD, open heart surgery and valve surgery. GI: No history of GI symptoms or problems. No history of esophageal varices, recent ascites, or ETOH greater than 2 drinks per day. : Positive for: nephrolithiasis (hx stones, s/p lithotripsy). Negative for: urinary incontinence, renal failure and urinary tract infection. CONSUMER LOAN PROCESSOR: Negative for abnormal vaginal bleeding, abnormal vaginal discharge. Endocrine: No history of diabetes. Has not taken steroids within the past 30 days. No history of endocrinological symptoms or problems. Hematology: No history of bleeding or clotting disorder. Patient is not taking anti-coagulation or platelet medications. No history of hematological symptoms or problems. Oncology: See HPI. Musculoskeletal: Positive for: joint pain (generalized). Skin: Negative for lesions, rash and itching. PAST MEDICAL HISTORY Diagnosis Date Anxiety Anxiety Arthritis Hypercholesteraemia Hypertension ZEYNEP (obstructive sleep apnea) 11/15/2013 [facility] [employer] for AutoPAP Overweight(278.02) Post-menopausal PAST SURGICAL HISTORY Procedure Laterality Date COLONOSCOPY N/A 11/09/2016 COLONOSCOPY 03/23/2022 repeat in 5 years COLONOSCOPY FLX DX W/COLLJ SPEC WHEN PFRMD 09/04/2013 Colonoscopy- 3 small polyps HYSTEROSCOPY 09/27/2018 Dr. Oh Irizarry; W/ D&C and endometrial polypectomy PAST SURGICAL HISTORY OF 09/2018 Kidney stones removed PAST SURGICAL HISTORY OF N/A 1984 wisdom teeth extraction FAMILY HISTORY Problem Relation Age of Onset Arthritis Mother Hypertension Mother Hypertension Father Heart Father Lipids Father Melanoma Father No Known Problems Brother Hypertension Maternal Grandmother Uterine Cancer Maternal Grandmother Hypertension Maternal Grandfather Hypertension Paternal Grandmother Osteoporosis Paternal Grandmother Breast Cancer Paternal Grandmother Osteoporosis Paternal Grandfather Multiple Sclerosis Paternal Grandfather Breast Cancer Paternal Aunt Social History Tobacco Use Smoking status: Never Smokeless tobacco: Never Vaping Use Vaping Use: Never used Substance Use Topics Alcohol use: Yes Comment: rare Drug use: No Prior to Admission medications as of 09/20/23 1415 Medication Sig Last Dose Taking rosuvastatin (CRESTOR) 10 mg tablet Take 1 tablet by mouth daily at bedtime. Taking Yes FLUoxetine (PROZAC) 20 mg capsule Take 1 capsule by mouth once daily. Taking Yes hydroCHLOROthiazide 25 mg tablet take 1 tablet daily Taking Yes celecoxib (CELEBREX) 200 mg capsule Take 1 capsule by mouth once daily. Taking Yes metoprolol succinate ER (TOPROL XL) 100 mg Take 1 tablet by mouth once daily. Taking Yes Cholecalciferol, Vitamin D3, 125 mcg (5,000 unit) cap Take 1 capsule by mouth once daily. Taking Yes naproxen (NAPROSYN) 500 mg tablet Take 1 tablet by mouth twice daily as needed (for pain/inflammation). Take with food. Taking Yes amLODIPine (NORVASC) 2.5 mg tablet Take 1 tablet by mouth once daily. Taking Yes cyanocobalamin 1,000 mcg/mL Inject 1 mL intramuscularly once every month. Taking Yes Syringe with Needle, Safety 3 mL 23 gauge x 1 1 Each once every month. With B-12 injections Luerlock CPAP/BIPAP/OTHER Type .CPAPSettings into a note to see current settings/supplies/DME information. CPAP/BIPAP/OTHER Type .CPAPSettings into a note to see current settings/supplies/DME information. CPAP Mask refitting when eligible, suitable mask per pt preference, chin strap, head gear, humidity, tubing, lifetime supplies. G47.33 Obstructive Sleep Apnea CPAP 1 Device daily at bedtime. Auto PAP with Settings 10-20 cm H2O, suitable mask per pt preference, chin strap, head gear, humidity, tubing, lifetime supplies. G47.33 Obstructive Sleep Apnea. Current machine broken beyond repair. CPAP AutoPAP 10-20 cmH2O, suitable mask, humidity, filters, chin strap. Lifetime supplies. Dx: 327.23. compliance rpt to Dr. Miller in 6 wks. Medication Comments documented by Ted Monroe DO on 09/13/2018 at 0939. Uribel prn by Dr. Mccabe ALLERGIES No Known Allergies Objective PHYSICAL EXAM: General: alert and oriented (x3), healthy appearance and morbidly obese. Pertinent negatives noted - not distressed. Skin: normal color, no rash or lesions. HEENT: EOM intact and pupils equal round. Pertinent negatives noted - no carotid bruit. Cardiovascular: regular rate and rhythm, normal S1 and S2, no rub, murmurs, or gallop. Respiratory: normal breath sounds, no wheezes or crackles. No chest wall deformity or tenderness. Abdomen: soft. Pertinent negatives noted - not tender. Extremities: no deformity, no edema or tenderness, no joint swelling or clubbing. Neurological: normal cognition and motor skills. Gait normal. No weakness or sensory deficit. PAIN ASSESSMENT: VITALS: BP 128/72 Pulse 64 Temp (Src) 97.1 (Temporal) Resp 16 Ht 5' 6 (1.68m) Wt 288 lb (130.6kg) SpO2 94% LMP 07/25/2015 BMI 46.51 kg/(m^2). Diagnostic tests reviewed for today's visit: Lab Value Units Date High Low HB 14.1 g/dL 09/20/2023 15.5 11.5 HCT 40.5 % 09/20/2023 46.0 36.0 WBC 8.51 k/uL 09/20/2023 11.00 3.70 PLT 163 k/uL 09/20/2023 400 150 NA No results within date range. K No results within date range. GLUC No results within date range. BUN No results within date range. CREAT No results within date range. PTSEC No results within date range. INR No results within date range. APTT No results within date range. ALT No results within date range. AST No results within date range. TBILI No results within date range. TSH No results within date range. Lab Value Units Date High Low HCGQT No results within date range. UHCG No results within date range. HCG, BODY* No results within date range. Lab Value Units Date High Low ABORHD No results within date range. ABSCREEN No results within date range. Hemoglobin A1C (%) Date Value 11/14/2022 5.1 05/22/2021 5.3 05/25/2020 5.4 03/09/2019 5.2 11/22/2017 5.2 06/06/2016 5.6 No results found for this or any previous visit (from the past 8760 hour(s)). No results found for this or any previous visit (from the past 18088 hour(s)). Prepared for Surgery: optimally prepared for surgery, pending [see comment]. labs CONSULTS: Patient does not require consults for optimization at this time Planned Anesthetic: other anesthesia choice The Following Tests/Procedures Have Been Initiated: Orders Placed This Encounter >CBC + AUTO DIFF Standing Status: Future Number of Occurrences: 1 Standing Expiration Date: 12/20/2023 >CMP Standing Status: Future Number of Occurrences: 1 Standing Expiration Date: 12/20/2023 Instructions Given to Patient: Instructions located in the after visit summary. Patient given verbal and written preop instructions and voices comprehension and compliance. SIGNATURE: Keyanna Ramirez APRN.CNP PATIENT NAME: Ramona Villegas DATE: September 20, 2023 TIME: 2:15 PM PAGER/CONTACT #: documented in this encounter [facility] 09-20-2023 Instructions Keyanna Ramirez APRN.CNP - 09/20/2023 2:15 PM EST PATIENT PREOPERATIVE INSTRUCTIONS Harper Lopez DO has scheduled you for your procedure at this surgery center: [facility]: [phone] --[id number] [address]. Please check in on the 1st floor at registration desk 6. Please read below carefully for your personalized instructions. Dietary Restrictions: - No solid food after midnight. - You may have 12 ounces of clear liquids (water, clear juices such as apple juice or gatorade, carbonated beverages, clear tea, black coffee, jello) until 2 hours before scheduled arrival at facility. No red/purple coloring and no creamer/sugar Medications: Unless instructed differently below, stay on all of your medications until your surgery. If you start any new medications after today's visit, please contact your surgeon. Pre-Surgery Med Instructions Medication Instructions rosuvastatin (CRESTOR) 10 mg tablet Take the day of surgery with a small sip of water FLUoxetine (PROZAC) 20 mg capsule Take the day of surgery with a small sip of water hydroCHLOROthiazide 25 mg tablet Do not take the day of surgery celecoxib (CELEBREX) 200 mg capsule Stop 7 days before surgery metoprolol succinate ER (TOPROL XL) 100 mg Take the day of surgery with a small sip of water Cholecalciferol, Vitamin D3, 125 mcg (5,000 unit) cap Stop 7 days before surgery naproxen (NAPROSYN) 500 mg tablet Stop 7 days before surgery amLODIPine (NORVASC) 2.5 mg tablet Take the day of surgery with a small sip of water cyanocobalamin 1,000 mcg/mL Stop 7 days before surgery If you start any new medications after today's visit, please contact the surgeon's office. Blood Thinning Medications: - Stop NSAIDS (Ibuprofen, Advil, Aleve, Motrin, Celebrex, Mobic, etc.) 7 days before surgery, as directed by your surgeon. - Stop Aspirin 7 days before surgery, as directed by your surgeon. - Stop Vitamin E, ALL multi-vitamins, herbals and dietary supplements 7 days before surgery. - You may take Tylenol (Acetaminophen) or any of your pain medications that do not contain aspirin or NSAIDS as needed. Important Reminders: - Candy, mints, and tobacco products are NOT permitted the morning of surgery. - Hearing aids, dentures and glasses may be worn the morning of surgery. - NO jewelry, body piercings, makeup, hairpins or contacts are to be worn the day of surgery. If you develop symptoms such as a fever, cold, or flu, or have other changes to your health within TWO DAYS of scheduled surgery or the morning of surgery, please contact the surgery center above. Personal Belongings: -Please have photo ID and insurance cards. -If you do not have a copy of advance directives on file with us, please bring a copy with you on the day of surgery. - Leave ALL valuables and money at home or with family members. For Outpatient Procedures: - YOU MUST HAVE A RESPONSIBLE RESEARCH INVESTIGATOR TAKE YOU HOME. A SAFE AND VAULT SERVICE MECHANIC OR STENOTYPIST CANNOT BE MADE A RESPONSIBLE RESEARCH INVESTIGATOR. - We recommend that a responsible person stays with you overnight to take care of you. - You cannot stay in a hotel alone after outpatient surgery. You will not be permitted to have your surgery, if you do not have someone to take care of you. Arrival Time for Surgery: - The Surgery Center or hospital where you are having surgery will call the afternoon before surgery (or Wednesday for Wednesday surgery) with a scheduled arrival time. - If you have not heard by 4 pm, please contact the surgery center above. Please be aware that emergency situations arise, which may delay or change your surgical time. If this happens, we will notify you as soon as possible and regret any inconvenience. If you already have an Advance Directive, please fax a copy to [phone] or email to for it to be added to your chart. If you do not have an Advance Directive, you can find the appropriate form and more information at [email or web address]. We recommend that you complete the Advance Directive form found on the website and bring it with you the day of your surgery. It can be witnessed and scanned into your chart that day. Keaynna Ramirez APRN.CNP documented in this encounter [facility] 09-20-2023 Note HNO ID: [id number] Author: Andrew Lopez, DO Service: ? Author Type: Physician Type: Progress Notes Filed: 09/20/2023 12:21 PM Note Text: Patient referred by Dr. Lopez for breast cacer. The impression and plan will be communicated by way of the shared electronic record or faxed under separate cover letter. 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 ; CPAP), elevated fasting glucose, prior low vitamin B12 (home B12 injections monthly) and recent diagnosis of breast cancer. Patient had screening mammogram 07/02/2023. On that study she was observed to have asymmetry in the left breast upper outer quadrant. There are also new calcifications in the right breast upper inner quadrant posterior depth. Diagnostic mammogram and ultrasound 07/06/2023 identified a 2 and half centimeter spiculated mass in the left breast at 1:00 located 3 cm from the nipple. The lymph nodes appeared normal. Underwent core needle biopsy. Pathology: A. Left breast, core biopsy: -Invasive ductal carcinoma with lobular features, provisional Burket grade 1-2 (of 3), measuring almost 12 mm in this sampling. Estrogen Receptor (ER) Positive 91-100 % Stain intensity: moderate to strong Progesterone Receptor (NC) Positive 51-60 % Stain intensity: moderate to strong HER2 (ERBB2) IMMUNOHISTOCHEMISTRY ASSAY Interpretation: NEGATIVE for HER2 (ERBB2) Expression Score: 1+ Underwent stereotactic breast biopsy of right breast 08/13/2023. Pathology: A. Right breast, upper inner, calcifications, stereotactic-guided core needle biopsy with stoplight clip placement: - Breast tissue with usual ductal hyperplasia, microcysts, apocrine metaplasia, columnar cell change, and stromal fibrosis. - Microcalcifications present within the glands. MRI Breasts 09/16/2023: IMPRESSION: KNOWN BIOPSY PROVEN MALIGNANCY 1. 2.8 cm spiculated enhancing mass in the 1:00 middle depth left breast at site of biopsy-proven malignancy. There are two 5-6 mm satellite enhancing foci from the dominant mass by approximately 6-7 mm each, suspicious for adjacent satellite enhancing foci, which would increase the total measurement to approximately 3.8 cm. 2. 5 mm enhancing focus in the lateral retroareolar left breast is indeterminate. If the patient is considering breast conservation therapy, second look ultrasound would be recommended to further evaluate and facilitate possible ultrasound guided biopsy. If not seen sonographically, an MRI guided biopsy would be recommended/should be attempted, although the close proximity to the nipple may be challenging. 3. No MRI evidence of malignancy in the right breast. Small postbiopsy hematoma in the upper inner right breast at site of recent benign stereotactic biopsy of calcifications. 4. No lymphadenopathy. Dyspnea with stairs. No h/o VTE. PAST MEDICAL HISTORY Diagnosis Date Anxiety Anxiety Arthritis Hypercholesteraemia Hypertension ZEYNEP (obstructive sleep apnea) 11/15/2013 DME [employer] for AutoPAP Overweight(278.02) Post-menopausal PAST SURGICAL HISTORY Procedure Laterality Date COLONOSCOPY N/A 11/09/2016 COLONOSCOPY 03/23/2022 repeat in 5 years COLONOSCOPY FLX DX W/COLLJ SPEC WHEN PFRMD 09/04/2013 Colonoscopy- 3 small polyps HYSTEROSCOPY 09/27/2018 Dr. Oh Irizarry; W/ DANDC and endometrial polypectomy PAST SURGICAL HISTORY OF 09/2018 Kidney stones removed PAST SURGICAL HISTORY OF N/A 1983 wisdom teeth extraction ALLERGIES No Known Allergies Current Outpatient Medications Medication Sig rosuvastatin (CRESTOR) 10 mg tablet Take 1 tablet by mouth daily at bedtime. FLUoxetine (PROZAC) 20 mg capsule Take 1 capsule by mouth once daily. hydroCHLOROthiazide 25 mg tablet take 1 tablet daily CPAP/BIPAP/OTHER Type .CPAPSettings into a note to see current settings/supplies/DME information. celecoxib (CELEBREX) 200 mg capsule Take 1 capsule by mouth once daily. metoprolol succinate ER (TOPROL XL) 100 mg Take 1 tablet by mouth once daily. Cholecalciferol, Vitamin D3, 125 mcg (5,000 unit) cap Take 1 capsule by mouth once daily. naproxen (NAPROSYN) 500 mg tablet Take 1 tablet by mouth twice daily as needed (for pain/inflammation). Take with food. amLODIPine (NORVASC) 2.5 mg tablet Take 1 tablet by mouth once daily. cyanocobalamin 1,000 mcg/mL Inject 1 mL intramuscularly once every month. CPAP/BIPAP/OTHER Type .CPAPSettings into a note to see current settings/supplies/DME information. CPAP Mask refitting when eligible, suitable mask per pt preference, chin strap, head gear, humidity, tubing, lifetime supplies. G47.33 Obstructive Sleep Apnea CPAP 1 Device daily at bedti (more content not included)... [facility] 09-20-2023 Note HNO ID: [id number] Author: Jacoby Guevara MD, MD Service: ? Author Type: Physician Type: Progress Notes Filed: 09/21/2023 2:35 PM Note Text: Radiation Oncology - New Patient/Consult Note PATIENT NAME: Ramona Villegas PATIENT REQUESTING PROVIDER: Dr. Harper Lopez DIAGNOSIS: Stage IB, cT2 cN0, grade 1-2 invasive ductal carcinoma of the left breast. It's ER positive (91-100%, moderate to strong), NC positive (51-60%, moderate to strong) and Her2 1+. HPI: 63 year old female who presents with above diagnosis, for an opinion regarding the role of radiation therapy in the management of the patient's disease. Final recommendations will be communicated back to the requesting physician by way of the shared medical record, or letter to requesting physician via [place] mail. 63 year old woman who had an abnormal screening mammogram on 07/05/23. It showed a focal asymmetry in the left breast upper outer aspect posterior depth and grouped calcifications in the right breast upper inner aspect posterior depth. Diagnostic mammogram and US on 08/03/23 showed a 2.5 cm irregular mass in the left breast at 1 o'clock middle depth highly suggestive of malignancy. US showed a 2.5 cm x 2.4 cm x 1.5 cm irregular solid mass with a spiculated margin in the left breast at 1 o'clock middle depth 3 cm from the nipple.The clustered heterogeneous punctate calcifications in the right breast upper inner aspect posterior depth are at moderate suspicion for malignancy. Core biopsy of the left breast lesion on 08/11/23 showed grade 1-2 invasive ductal carcinoma with lobular features measuring 12 mm in the sampling. It's ER positive (91-100%, moderate to strong), NC positive (51-60%, moderate to strong) and Her2 1+. Stereotactic biopsy of the right breast microcalcification lesion on 09/09/23 showed breast tissue with usual ductal hyperplasia, microcysts, apocrine metaplasia, columnar cell change, and stromal fibrosis. Microcalcifications present within the glands. MRI breasts on 09/16/23 showed a 2.8 cm spiculated enhancing mass in the 1:00 middle depth left breast at site of biopsy-proven malignancy. There are two 5-6 mm satellite enhancing foci from the dominant mass by approximately 6-7 mm each, suspicious for adjacent satellite enhancing foci, which would increase the total measurement to approximately 3.8 cm. 5 mm enhancing focus in the lateral retroareolar left breast is indeterminate. No MRI evidence of malignancy in the right breast. No lymphadenopathy. ALLERGIES No Known Allergies Current Outpatient Medications on File Prior to Visit Medication Sig rosuvastatin (CRESTOR) 10 mg tablet Take 1 tablet by mouth daily at bedtime. FLUoxetine (PROZAC) 20 mg capsule Take 1 capsule by mouth once daily. hydroCHLOROthiazide 25 mg tablet take 1 tablet daily celecoxib (CELEBREX) 200 mg capsule Take 1 capsule by mouth once daily. metoprolol succinate ER (TOPROL XL) 100 mg Take 1 tablet by mouth once daily. Cholecalciferol, Vitamin D3, 125 mcg (5,000 unit) cap Take 1 capsule by mouth once daily. naproxen (NAPROSYN) 500 mg tablet Take 1 tablet by mouth twice daily as needed (for pain/inflammation). Take with food. amLODIPine (NORVASC) 2.5 mg tablet Take 1 tablet by mouth once daily. cyanocobalamin 1,000 mcg/mL Inject 1 mL intramuscularly once every month. Syringe with Needle, Safety 3 mL 23 gauge x 1 1 Each once every month. With B-12 injections Luerlock CPAP/BIPAP/OTHER Type .CPAPSettings into a note to see current settings/supplies/DME information. CPAP/BIPAP/OTHER Type .CPAPSettings into a note to see current settings/supplies/DME information. peg 3350-Electrolytes (GOLYTELY) 236-22.74-6.74 -5.86 gram suspension Refer to printed prep instructions from your provider. tiZANidine HCl 2 mg capsule Take 1 capsule by mouth three times daily as needed. CPAP Mask refitting when eligible, suitable mask per pt preference, chin strap, head gear, humidity, tubing, lifetime supplies. G47.33 Obstructive Sleep Apnea CPAP 1 Device daily at bedtime. Auto PAP with Settings 10-20 cm H2O, suitable mask per pt preference, chin strap, head gear, humidity, tubing, lifetime supplies. G47.33 Obstructive Sleep Apnea. Current machine broken beyond repair. CPAP AutoPAP 10-20 cmH2O, suitable mask, humidity, filters, chin strap. Lifetime supplies. Dx: 327.23. compliance rpt to Dr. Miller in 6 wks. No current facility-administered medications on file prior to visit. PAST MEDICAL HISTORY Diagnosis Date Anxiety Anxiety Arthritis Hypercholesteraemia Hypertension ZEYNEP (obstructive sleep apnea) 11/15/2013 [facility] Overweight(278.02) Post-menopausal Prior radiation therapy, collagen vascular disease, or inflammatory bowel disease: No Any implanted or external electric devices? No status: Post-menopausal. PAST SURGICAL HISTORY Procedure Laterality (more content not included)... [facility] 09-20-2023 Nurse Note Radiation Therapy - Nursing Note (Consult) PATIENT NAME: Ramona Villegas PATIENT September 20, 2023 [facility] FACILITY/LOCATION: [place] Chief Complaint: consult Reason for visit: Consult. Referring physician: Internal provider Dr Lopez Subjective Data: no complaints Additional Data Do you want to see a Hydraulic Boom Operator? No Are you interested in information about fertility? No Status: Post-menopausal Stress Scale: On a scale of 0 to 10, what number best describes how much distress you have experienced in the past week?(0 being no distress and 10 being extreme distress) 1 Social work notified: no SIGNED by: Jacquelin Moseley RN documented in this encounter [facility] 09-20-2023 History of Present illness Narrative Radiation Oncology - New Patient/Consult Note PATIENT NAME: Ramona Villegas PATIENT REQUESTING PROVIDER: Dr. Harper Lopez DIAGNOSIS: Stage IB, cT2 cN0, grade 1-2 invasive ductal carcinoma of the left breast. It's ER positive (91-100%, moderate to strong), NC positive (51-60%, moderate to strong) and Her2 1+. HPI: 63 year old female who presents with above diagnosis, for an opinion regarding the role of radiation therapy in the management of the patient's disease. Final recommendations will be communicated back to the requesting physician by way of the shared medical record, or letter to requesting physician via [place] mail. 63 year old woman who had an abnormal screening mammogram on 07/05/23. It showed a focal asymmetry in the left breast upper outer aspect posterior depth and grouped calcifications in the right breast upper inner aspect posterior depth. Diagnostic mammogram and US on 08/03/23 showed a 2.5 cm irregular mass in the left breast at 1 o'clock middle depth highly suggestive of malignancy. US showed a 2.5 cm x 2.4 cm x 1.5 cm irregular solid mass with a spiculated margin in the left breast at 1 o'clock middle depth 3 cm from the nipple.The clustered heterogeneous punctate calcifications in the right breast upper inner aspect posterior depth are at moderate suspicion for malignancy. Core biopsy of the left breast lesion on 08/11/23 showed grade 1-2 invasive ductal carcinoma with lobular features measuring 12 mm in the sampling. It's ER positive (91-100%, moderate to strong), NC positive (51-60%, moderate to strong) and Her2 1+. Stereotactic biopsy of the right breast microcalcification lesion on 09/09/23 showed breast tissue with usual ductal hyperplasia, microcysts, apocrine metaplasia, columnar cell change, and stromal fibrosis. Microcalcifications present within the glands. MRI breasts on 09/16/23 showed a 2.8 cm spiculated enhancing mass in the 1:00 middle depth left breast at site of biopsy-proven malignancy. There are two 5-6 mm satellite enhancing foci from the dominant mass by approximately 6-7 mm each, suspicious for adjacent satellite enhancing foci, which would increase the total measurement to approximately 3.8 cm. 5 mm enhancing focus in the lateral retroareolar left breast is indeterminate. No MRI evidence of malignancy in the right breast. No lymphadenopathy. ALLERGIES No Known Allergies Current Outpatient Medications on File Prior to Visit Medication Sig rosuvastatin (CRESTOR) 10 mg tablet Take 1 tablet by mouth daily at bedtime. FLUoxetine (PROZAC) 20 mg capsule Take 1 capsule by mouth once daily. hydroCHLOROthiazide 25 mg tablet take 1 tablet daily celecoxib (CELEBREX) 200 mg capsule Take 1 capsule by mouth once daily. metoprolol succinate ER (TOPROL XL) 100 mg Take 1 tablet by mouth once daily. Cholecalciferol, Vitamin D3, 125 mcg (5,000 unit) cap Take 1 capsule by mouth once daily. naproxen (NAPROSYN) 500 mg tablet Take 1 tablet by mouth twice daily as needed (for pain/inflammation). Take with food. amLODIPine (NORVASC) 2.5 mg tablet Take 1 tablet by mouth once daily. cyanocobalamin 1,000 mcg/mL Inject 1 mL intramuscularly once every month. Syringe with Needle, Safety 3 mL 23 gauge x 1 1 Each once every month. With B-12 injections Luerlock CPAP/BIPAP/OTHER Type .CPAPSettings into a note to see current settings/supplies/DME information. CPAP/BIPAP/OTHER Type .CPAPSettings into a note to see current settings/supplies/DME information. peg 3350-Electrolytes (GOLYTELY) 236-22.74-6.74 -5.86 gram suspension Refer to printed prep instructions from your provider. tiZANidine HCl 2 mg capsule Take 1 capsule by mouth three times daily as needed. CPAP Mask refitting when eligible, suitable mask per pt preference, chin strap, head gear, humidity, tubing, lifetime supplies. G47.33 Obstructive Sleep Apnea CPAP 1 Device daily at bedtime. Auto PAP with Settings 10-20 cm H2O, suitable mask per pt preference, chin strap, head gear, humidity, tubing, lifetime supplies. G47.33 Obstructive Sleep Apnea. Current machine broken beyond repair. CPAP AutoPAP 10-20 cmH2O, suitable mask, humidity, filters, chin strap. Lifetime supplies. Dx: 327.23. compliance rpt to Dr. Miller in 6 wks. No current facility-administered medications on file prior to visit. PAST MEDICAL HISTORY Diagnosis Date Anxiety Anxiety Arthritis Hypercholesteraemia Hypertension ZEYNEP (obstructive sleep apnea) 11/15/2013 DME [facility] for AutoPAP Overweight(278.02) Post-menopausal Prior radiation therapy, collagen vascular disease, or inflammatory bowel disease: No Any implanted or external electric devices? No status: Post-menopausal. PAST SURGICAL HISTORY Procedure Laterality Date COLONOSCOPY N/A 11/09/2016 COLONOSCOPY 03/23/2022 repeat in 5 years COLONOSCOPY FLX DX W/COLLJ SPEC WHEN PFRMD 09/04/2013 Colonoscopy- 3 small polyps HYSTEROSCOPY 09/27/2018 Dr. Oh Irizarry; W/ D&C and endometrial polypectomy PAST SURGICAL HISTORY OF 09/2018 Kidney stones removed FAMILY HISTORY Problem Relation Age of Onset Hypertension Father Heart Father Lipids Father Melanoma Father Arthritis Mother Hypertension Mother Hypertension Maternal Grandfather Hypertension Maternal Grandmother Uterine Cancer Maternal Grandmother Osteoporosis Paternal Grandfather Hypertension Paternal Grandmother Osteoporosis Paternal Grandmother Breast Cancer Paternal Grandmother Breast Cancer Paternal Aunt Social History Tobacco Use Smoking status: Never Smokeless tobacco: Never Vaping Use Vaping Use: Never used Substance Use Topics Alcohol use: Yes Comment: rare Drug use: No COMPLETE REVIEW OF SYSTEMS: GENERAL: feeling well without fatigue, no recent change in weight HEENT: denies CURRY, change in hearing or vision, no other ENT complaints NECK: denies swelling or pain in neck RESPIRATORY: no cough, no wheezing or shortness of breath CARDIOVASCULAR: no chest pain, no palpitations GI: normal appetite, tolerating PO well, BMs normal, and no abdominal pain : urination is normal MUSCULOSKELETAL: denies any painful or swollen joints, no muscle aches SKIN: no rash HEMATOLOGY/LYMPHOLOGY: negative for prolonged bleeding, no swollen lymph nodes NEURO: chronic numbness/tingling in arms since neck injury years ago. PHYSICAL EXAM: VS: BP 137/76 Pulse (!) 52 Temp 36.4 C (97.6 F) (Temporal) Resp 15 Wt 130.9 kg (288 lb 8 oz) LMP 07/25/2015 SpO2 96% BMI 46.57 kg/m KPS: 100 General Appearance: Alert and oriented. No acute distress. HEENT: NCAT. Sclera anicteric. EOMI. Neck: Normal ROM. Chest: No respiratory distress. Breasts: There is a 2 cm tender mass deep left upper outer breast. Abdomen: Soft. Nontender. Nondistended. Musculoskeletal: No edema. Normal ROM in extremities. Neuro: Speech fluent. Gait normal. No focal deficits. Skin: No rashes noted Lymphatics: No palpable cervical or supraclavicular or axillary adenopathy. Hematologic: No signs of active bleeding. RADIOLOGY/LABORATORY DATA: see HPI ASSESSMENT AND PLAN: 63 year old woman with stage IB, cT2 cN0, grade 1-2 invasive ductal carcinoma of the left breast. It's ER positive (91-100%, moderate to strong), NC positive (51-60%, moderate to strong) and Her2 1+. I discussed local therapy of early stage breast cancer, breast conserving therapy vs. mastectomy. I also discussed the role of radiation treatment. I explained the rationale, benefits, alternative management options and potential complications of radiation treatment to the patient and she understands. She has chosen to pursue mastectomy and is scheduled on 10/07/23. I will see her next month to go over surgical pathology report with respect to indication of radiation treatment. Thank you very much for allowing us to participate in her care. Signed by: Jacoby Guevara MD cc: Ted Monroe [address] [place] [address] Harper Lopez [id number] [address] [facility] [id number] documented in this encounter [facility] 09-17-2023 Miscellaneous Notes Spoke to patient, confirmed her surgery date and appointments related to her procedure with Dr. Lopez on 10/07 . documented in this encounter [facility] 09-16-2023 Miscellaneous Notes PT calling to inform she would like to proceed with a Mastectomy with the tentative date given of 10/07. She will cancel her biopsy appt on October 20 . Sanam Eller LPN documented in this encounter [facility] 09-16-2023 Note HNO ID: [id number] Author: Harper Lopez, DO Service: ? Author Type: Physician Type: Progress Notes Filed: 09/18/2023 10:06 AM Note Text: REASON FOR TODAY'S VISIT: Patient presents with: Established Patient: regroup HISTORY of PRESENT ILLNESS: Ramona Villegas is a 63 year old female who I initially saw in the office 08/27/23 with a LEFT breast 2.5 cm x 2.4 cm x 1.5 cm mass @ 1:00, [address] appear normal. ER+NC+HER2- [id number] RIGHT breast cluster of calcifications upper inner aspect, posterior depth, stereo bx recommended - performed on 09/09/23, benign and concordant - 6 month MMG recommended to demonstrate stability Breast MRI was performed yesterday Patient is here to review the findings and to discuss her surgical options. Presents with her son IMAGIN09/09/23 Correlation is made to exams dated: 08/03/2023 ultrasound and 08/03/2023 mammogram - [facility]. A stereotactic guided biopsy was performed for the concerning area of grouped calcifications located in the right breast lower inner aspect. This was described on the previous mammography report. The skin was prepped in the usual manner. Local anesthetic was administered to the access site. A skin darlin was made in the breast. The abnormality was approached from the medial aspect using a prone table. A 9 gauge biopsy needle was placed adjacent to the abnormality under computer guidance and confirmatory stereotactic mammography images were obtained to document needle placement. Once the needle was documented to be in the correct location, twelve specimens were obtained using the EyeSpot system. The patient received additional local anesthetic during the procedure. A stop light clip was inserted into the biopsy cavity. A skin closure strip and a sterile dressing were applied to the access site. Post procedure digital mammographic imaging demonstrates the location device at the targeted area. The specimens were sent to the laboratory for pathological analysis. IMPRESSION: STEREOTACTIC GUIDED BIOPSY BENIGN Stereotactic guided biopsy of the area of grouped calcifications in the right breast lower inner aspect with placement of a clip was successful with no apparent post procedure complications. The imaged specimens includes the calcifications. Pathology indicates benign finding. Pathology results are concordant with biopsy findings. A follow-up mammogram in 6 months is recommended to demonstrate stability. SUMMARY: FINAL DIAGNOSIS A. Right breast, upper inner, calcifications, stereotactic-guided core needle biopsy with stoplight clip placement: - Breast tissue with usual ductal hyperplasia, microcysts, apocrine metaplasia, columnar cell change, and stromal fibrosis. - Microcalcifications present within the glands. Electronically signed by Bre Mauricio MD The patient will be notified of the concordant pathology results by the Breast imaging navigator. She should return in six months for imaging follow up. Emma Martinez M.D. BREAST MRI OF BOTH BREASTS: 09/15/2023 HISTORY: Invasive Ductal Carcinoma Of Breast, Female, Left (Hcc). RESULT: Comparison is made to exams dated: 09/09/2023 stereotactic biopsy - [facility], 08/11/2023 mammogram, 08/03/2023 ultrasound, 08/03/2023 mammogram, 07/02/2023 mammogram, and 06/12/2022 mammogram - [facility]. MRI images were obtained with a dedicated breast coil. TECHNIQUE: Axial STIR and axial T1 weighted imaging was carried out follow by axial T1- with fat saturation imaging both before and after IV administration of 20 ml of Dotarem. Subsequently, complex volumetric analysis requiring post processing performed using a semi-automated software Preventiceacad, on an independent workstation by the physician, with images created reviewed and archived. INDICATION: Recent biopsy-proven invasive ductal carcinoma with lobular features in the 1:00 left breast. Recent benign stereotactic biopsy of calcifications in the upper inner right breast. Evaluate extent of disease prior to treatment. FINDINGS: No axillary or internal mammary chain lymphadenopathy. The breast tissue is heterogeneously dense. Mild, symmetric background parenchymal enhancement of the breast tissue bilaterally. The visualized intra-abdominal and intrathoracic soft tissues are unremarkable. There are postbiopsy changes with a small hematoma measuring approximately 2.6 cm in the upper inner right breast, at site of recent benign stereotactic biopsy. No suspicious enhancing masses or areas of abnormal masslike enhancement in the right breast. In the 1:00 middle depth left breast there is a spiculated enhancing mass measuring 2.9 x 2.5 x 2.3 cm on series 100 image 196 and series 10 image 81. This contains a biopsy marking clip and corresponds with the known biopsy-proven malignancy. Located approximately 6 mm anterior and slightly medi (more content not included)... [facility] 09-16-2023 History of Present illness Narrative REASON FOR TODAY'S VISIT: Patient presents with: Established Patient: regroup HISTORY of PRESENT ILLNESS: Ramona Villegas is a 63 year old female who I initially saw in the office 08/27/23 with a LEFT breast 2.5 cm x 2.4 cm x 1.5 cm mass @ 1:00, [address] appear normal. ER+NC+HER2- [id number] RIGHT breast cluster of calcifications upper inner aspect, posterior depth, stereo bx recommended - performed on 09/09/23, benign and concordant - 6 month MMG recommended to demonstrate stability Breast MRI was performed yesterday Patient is here to review the findings and to discuss her surgical options. Presents with her son IMAGIN09/09/23 Correlation is made to exams dated: 08/03/2023 ultrasound and 08/03/2023 mammogram - [facility]. A stereotactic guided biopsy was performed for the concerning area of grouped calcifications located in the right breast lower inner aspect. This was described on the previous mammography report. The skin was prepped in the usual manner. Local anesthetic was administered to the access site. A skin darlin was made in the breast. The abnormality was approached from the medial aspect using a prone table. A 9 gauge biopsy needle was placed adjacent to the abnormality under computer guidance and confirmatory stereotactic mammography images were obtained to document needle placement. Once the needle was documented to be in the correct location, twelve specimens were obtained using the EyeSpot system. The patient received additional local anesthetic during the procedure. A stop light clip was inserted into the biopsy cavity. A skin closure strip and a sterile dressing were applied to the access site. Post procedure digital mammographic imaging demonstrates the location device at the targeted area. The specimens were sent to the laboratory for pathological analysis. IMPRESSION: STEREOTACTIC GUIDED BIOPSY BENIGN Stereotactic guided biopsy of the area of grouped calcifications in the right breast lower inner aspect with placement of a clip was successful with no apparent post procedure complications. The imaged specimens includes the calcifications. Pathology indicates benign finding. Pathology results are concordant with biopsy findings. A follow-up mammogram in 6 months is recommended to demonstrate stability. SUMMARY: FINAL DIAGNOSIS A. Right breast, upper inner, calcifications, stereotactic-guided core needle biopsy with stoplight clip placement: - Breast tissue with usual ductal hyperplasia, microcysts, apocrine metaplasia, columnar cell change, and stromal fibrosis. - Microcalcifications present within the glands. Electronically signed by Bre Mauricio MD The patient will be notified of the concordant pathology results by the Breast imaging navigator. She should return in six months for imaging follow up. Emma Martinez M.D. BREAST MRI OF BOTH BREASTS: 09/15/2023 HISTORY: Invasive Ductal Carcinoma Of Breast, Female, Left (Hcc). RESULT: Comparison is made to exams dated: 09/09/2023 stereotactic biopsy - [facility], 08/11/2023 mammogram, 08/03/2023 ultrasound, 08/03/2023 mammogram, 07/02/2023 mammogram, and 06/12/2022 mammogram - [facility]. MRI images were obtained with a dedicated breast coil. TECHNIQUE: Axial STIR and axial T1 weighted imaging was carried out follow by axial T1- with fat saturation imaging both before and after IV administration of 20 ml of Dotarem. Subsequently, complex volumetric analysis requiring post processing performed using a semi-automated software Preventiceacad, on an independent workstation by the physician, with images created reviewed and archived. INDICATION: Recent biopsy-proven invasive ductal carcinoma with lobular features in the 1:00 left breast. Recent benign stereotactic biopsy of calcifications in the upper inner right breast. Evaluate extent of disease prior to treatment. FINDINGS: No axillary or internal mammary chain lymphadenopathy. The breast tissue is heterogeneously dense. Mild, symmetric background parenchymal enhancement of the breast tissue bilaterally. The visualized intra-abdominal and intrathoracic soft tissues are unremarkable. There are postbiopsy changes with a small hematoma measuring approximately 2.6 cm in the upper inner right breast, at site of recent benign stereotactic biopsy. No suspicious enhancing masses or areas of abnormal masslike enhancement in the right breast. In the 1:00 middle depth left breast there is a spiculated enhancing mass measuring 2.9 x 2.5 x 2.3 cm on series 100 image 196 and series 10 image 81. This contains a biopsy marking clip and corresponds with the known biopsy-proven malignancy. Located approximately 6 mm anterior and slightly medial to the malignancy/dominant mass, there is an additional 6 x 5 x 6 mm small enhancing mass on series 10 image 74 and series 100 image 188. An additional enhancing focus is seen just lateral and inferior to the dominant mass as seen on series 10 image 69 and series 100 image 206 measuring 5 x 5 x 5 mm and from the main mass by approximately 6 to 7 mm. When including these 2 enhancing foci with the dominant mass, this would increase the maximum measurement to approximately 3.8 cm. In the slightly lateral retroareolar left breast, there is a 5 x 4 x 5 mm enhancing focus as seen on series 10 image 58 and series 100 image 204. This is indeterminate. It is from the dominant mass by 5.5 cm. If the patient is considering breast conservation therapy, biopsy would be recommended. The mass demonstrates mostly persistent and partial plateau enhancement kinetics. The enhancing foci demonstrate persistent enhancement kinetics. IMPRESSION IMPRESSION: KNOWN BIOPSY PROVEN MALIGNANCY 1. 2.8 cm spiculated enhancing mass in the 1:00 middle depth left breast at site of biopsy-proven malignancy. There are two 5-6 mm satellite enhancing foci from the dominant mass by approximately 6-7 mm each, suspicious for adjacent satellite enhancing foci, which would increase the total measurement to approximately 3.8 cm. 2. 5 mm enhancing focus in the lateral retroareolar left breast is indeterminate. If the patient is considering breast conservation therapy, second look ultrasound would be recommended to further evaluate and facilitate possible ultrasound guided biopsy. If not seen sonographically, an MRI guided biopsy would be recommended/should be attempted, although the close proximity to the nipple may be challenging. 3. No MRI evidence of malignancy in the right breast. Small postbiopsy hematoma in the upper inner right breast at site of recent benign stereotactic biopsy of calcifications. 4. No lymphadenopathy. Dianne Alvarenga M.D. LIMITED ULTRASOUND OF LEFT BREAST: 09/16/2023 HISTORY: 2nd look ultrasound to evaluate MRI finding in the left lateral retroareolar breast. RESULT: Comparison is made to exam dated: 09/15/2023 breast MRI - [facility]. Color flow and real-time ultrasound of the left breast retroareolar were performed. Armendariz scale images of the real-time examination were reviewed. There is a 0.4 cm x 0.3 cm x 0.5 cm oval mass in the left breast at 3 o'clock in the retroareolar region. This oval mass is hypoechoic. This correlates with breast MRI findings. Color flow imaging demonstrates that there is increased vascularity. A benign cyst/focally dilated duct is visualized at the 12 o'clock axis, subareolar region. IMPRESSION: SUSPICIOUS FINDING - BIOPSY SHOULD BE CONSIDERED The 0.4 cm x 0.3 cm x 0.5 cm oval mass in the left breast has a differential diagnosis of a papilloma and is suspicious of malignancy. An ultrasound guided biopsy is recommended. This finding likely corresponsd to the enhancing focus in the lateral retroareolar left breast described on the MRI dated 09/15/2023. Post-biopsy T1-weighted MRI is recommended to confirm clip correlation. PATHOLOGY: 09/09/2023 FINAL DIAGNOSIS A. Right breast, upper inner, calcifications, stereotactic-guided core needle biopsy with stoplight clip placement: - Breast tissue with usual ductal hyperplasia, microcysts, apocrine metaplasia, columnar cell change, and stromal fibrosis. - Microcalcifications present within the glands. EXAMINATION: GEN alert and orientated, well nourished, calm Regional Lymph Nodes There is no concerning supraclavicular, infraclavicular or cervical lymphadenopathy. BREASTS: The patient was examined in the upright and supine position. RIGHT breast soft, ecchymosis from recent bx RIGHT axilla no palpable axillary lymphadenopathy LEFT breast soft, no dominant masses, nipple everted, no discharge, no skin changes LEFT axilla no palpable axillary lymphadenopathy ABD soft, non-distended, non-tender, no organomegaly EXT ambulated independently, good ROM of upper extremities, no evidence of lymphedema IMPRESSION: Ramona Villegas is a 63 year old female who I initially saw in the office 08/27/23 with a LEFT breast 2.9 cm IDC @ 1:00, 3 cm FN, at least 2 satellite lesions giving to span of disease 3.8 cm in size. There is also a 5 mm intraductal mass @ 3:00 retroareolar - bx has been recommended. LN appear normal. ER+NC+HER2- [id number] PLAN: We reviewed the imaging and recommendation for a biopsy of the area (likely papilloma). Reviewed lumpectomy and radiation and span of disease. Also discussed mastectomy with or without reconstruction. She states she will discuss her options given this new information on her MRI and ultrasound today with her son and daughter and get back to me. She would like surgery on 10/07/23 She has our names and numbers to stay in touch if she has any questions, concerns or problems in the interim. Harper Lopez DO Breast Surgeon Future Appointments Date Time Provider Department Center 09/20/2023 9:30 AM Jacoby Guevara MD, RADTWS [facility] 09/20/2023 11:10 AM Andrew Lopez DO HEMAWS [facility] 10/20/2023 12:30 PM PROCEDURE MAMMO MAIN RADMN [facility] 12/28/2023 10:45 AM Dianne Toledo [facility] 12/28/2023 2:40 PM Ted Monroe DO [facility] cc: Ted Monroe [address] [place] [address] documented in this encounter [facility] 09-16-2023 Nurse Note Regroup Did patient bring outside records to appt today? : No Last mammogram on: 08/03/23 bilateral Results: see report Is the patient active on MyChart Yes Electronically Signed By: Sanam Eller LPN In Department: [facility] REVIEW OF PATIENT HISTORY: OB History T2 L2 SAB0 IAB0 Ectopic0 Multiple0 Live Births0 FAMILY HISTORY Problem Relation Age of Onset Hypertension Father Heart Father Lipids Father Melanoma Father Arthritis Mother Hypertension Mother Hypertension Maternal Grandfather Hypertension Maternal Grandmother Uterine Cancer Maternal Grandmother Osteoporosis Paternal Grandfather Hypertension Paternal Grandmother Osteoporosis Paternal Grandmother Breast Cancer Paternal Grandmother Breast Cancer Paternal Aunt PAST MEDICAL HISTORY Diagnosis Date Anxiety Anxiety Arthritis Hypercholesteraemia Hypertension ZEYNEP (obstructive sleep apnea) 11/15/2013 DME [facility] for AutoPAP Overweight(278.02) Post-menopausal PAST SURGICAL HISTORY Procedure Laterality Date COLONOSCOPY N/A 11/09/2016 COLONOSCOPY 03/23/2022 repeat in 5 years COLONOSCOPY FLX DX W/COLLJ SPEC WHEN PFRMD 09/04/2013 Colonoscopy- 3 small polyps HYSTEROSCOPY 09/27/2018 Dr. Oh Irizarry; W/ D&C and endometrial polypectomy PAST SURGICAL HISTORY OF 09/2018 Kidney stones removed Social History Tobacco Use Smoking status: Never Smokeless tobacco: Never Vaping Use Vaping Use: Never used Substance Use Topics Alcohol use: Yes Comment: rare Drug use: No documented in this encounter [facility] 09-15-2023 Note HNO ID: [id number] Author: Sandra Bennett RT(R) Service: Radiology Author Type: Technologist Type: Progress Notes Filed: 09/15/2023 11:10 AM Note Text: Radiology Service Progress Note DATE OF SERVICE: September 15, 2023 TIME: 11:09 AM PATIENT IDENTITY VERIFICATION COMPLETED USING TWO (2) STANDARD IDENTIFIERS: Name and Date of confirmed by patient verbally and Name and Date of confirmed by identification band. FALL SCREENING: Has the patient had 2 falls in the last year or 1 fall with injury or currently using an Ambulatory Assistive Device (Walker, Cane, Wheelchair, Crutches, etc.)? No PATIENT GENDER DATA: Female. status: : No status: NO. PATIENT RELEVANT IMPLANT DATA REVIEWED: Yes ALLERGIES: Reviewed and unchanged CONTRAST ALLERGY: NO. EXAM: MRI - CONTRAST TYPE: GROUP II PERIPHERAL IV DATA: Ambulatory: A peripheral IV was started in the Right hand with a Angio cath: 22 gauge. RADIOLOGY DEPARTMENT: MR; Exam(s) Completed: Chest: Breast SIGNATURE: RT Diane(R) PATIENT NAME: Ramona Villegas DATE: September 15, 2023 TIME: 11:09 AM [facility] 09-15-2023 History of Present illness Narrative Radiology Service Progress Note DATE OF SERVICE: September 15, 2023 TIME: 11:09 AM PATIENT IDENTITY VERIFICATION COMPLETED USING TWO (2) STANDARD IDENTIFIERS: Name and Date of confirmed by patient verbally and Name and Date of confirmed by identification band. FALL SCREENING: Has the patient had 2 falls in the last year or 1 fall with injury or currently using an Ambulatory Assistive Device (Walker, Cane, Wheelchair, Crutches, etc.)? No PATIENT GENDER DATA: Female. status: : No status: NO. PATIENT RELEVANT IMPLANT DATA REVIEWED: Yes ALLERGIES: Reviewed and unchanged CONTRAST ALLERGY: NO. EXAM: MRI - CONTRAST TYPE: GROUP II PERIPHERAL IV DATA: Ambulatory: A peripheral IV was started in the Right hand with a Angio cath: 22 gauge. RADIOLOGY DEPARTMENT: MR; Exam(s) Completed: Chest: Breast SIGNATURE: RT Diane(R) PATIENT NAME: Ramona Villegas DATE: September 15, 2023 TIME: 11:09 AM documented in this encounter [facility] 09-13-2023 Miscellaneous Notes Called patient to notify the breast pathology results were benign per Dr. Martinez. Informed patient a 6 month follow up is recommended. Also to continue follow up with Dr. Lopez. Patient agrees with the plan. documented in this encounter [facility] 09-09-2023 Note HNO ID: [id number] Author: Destiney Mckinney, RT(R) Service: ? Author Type: Technologist Type: Patient Education Filed: 09/09/2023 10:31 AM Note Text: Written post procedure instructions were given to the patient. [facility] 09-08-2023 Miscellaneous Notes Spoke with pt and scheduled both apts as directed Per Dr. Guevara Telephone Enouncter: Jacoby Guevara MD, Wstr Hem/Onc Psr 46 minutes ago (8:59 AM) Please schedule her for consult with me. She may prefer to come in on the same day when she sees medical oncology (Please see Dr. Lopez's phone note). Dx is breast cancer and referring physician is Dr. Harper Lopez. Thanks! When patient calls, please schedule with both Dr. Lopez & Dr. Guevara. Harper Emerson 1st attempt: LM & sent MC due to pt's vm requesting a text Dr. Lopez referring this patient for new diagnosis of breast cancer. Next new with either me or Dr. Eduardo. Andrew Lopez DO documented in this encounter [facility] 09-06-2023 Miscellaneous Notes Patient has been identified by name and date of : Yes Requested Prescriptions Pending Prescriptions Disp Refills rosuvastatin (CRESTOR) 10 mg tablet 90 tablet 0 Sig: Take 1 tablet by mouth daily at bedtime. RX INSTRUCTIONS: Patient aware RX will be sent to pharmacy. No need to notify patient. J CARLOS Tijerina 11/2022 Aug 1312/2022 Last refill: 06/2023 documented in this encounter [facility] 09-06-2023 Miscellaneous Notes Images from the original note were not included. Jacoby Guevara MD, MD Wstr Hem/Onc Psr 46 minutes ago (8:59 AM) Please schedule her for consult with me. She may prefer to come in on the same day when she sees medical oncology (Please see Dr. Lopez's phone note). Dx is breast cancer and referring physician is Dr. Harper Lopez. Thanks! Please see TE under Dr. Lopez. Harper Emerson documented in this encounter [facility] 08-27-2023 Note HNO ID: [id number] Author: Sarah Link MD Service: ? Author Type: Physician Type: Progress Notes Filed: 08/27/2023 3:03 PM Note Text: Assessment interrupted by medical provider, unable to complete nursing assessment. Itzel Hanna MA [facility] 08-27-2023 Note HNO ID: [id number] Author: Sarah Link MD Service: ? Author Type: Physician Type: Progress Notes Filed: 08/27/2023 3:03 PM Note Text: BREAST RECONSTRUCTION EVALUATION CC: Ramona Villegas is a 62 year old that presents today for breast reconstruction evaluation. HPI: Pt referred by Dr Lopez re: left breast reconstruction s/p left breast cancer Prior breast procedures: Mammogram in Jul and then left breast biopsy on 08/11 Results [facility] by means of stereotactic core biopsy of Left breast on. The pathology report showed Infiltrating Ductal Carcinoma Grade I- II, ER positive, NC positive, HER2 non-amplified. Still unsure of lumpectomy vs mastectomy. Waiting on MRI results. This still needs to be scheduled. Radiation Therapy: Unknown Chemotherapy: unknown PAIN : No: 0 on a scale of 0 to 10 Bra Size: C Desired Bra Size: happy with her current size OB HISTORY: Para: 2 : Patient did breastfeed: approximate length of time 14 months for each child Plan for future pregnancies: No HISTORY OF BREAST DISEASE: No patient history of previous breast disease FAMILY HISTORY OF BREAST CANCER: Yes: paternal grandmother and paternal aunt PMH: PAST MEDICAL HISTORY Diagnosis Date Anxiety Anxiety Arthritis Hypercholesteraemia Hypertension ZEYNEP (obstructive sleep apnea) 11/15/2013 DME [facility] for AutoPAP Overweight(278.02) Post-menopausal PSH: PAST SURGICAL HISTORY Procedure Laterality Date COLONOSCOPY N/A 11/09/2016 COLONOSCOPY 03/23/2022 repeat in 5 years COLONOSCOPY FLX DX W/COLLJ SPEC WHEN PFRMD 09/04/2013 Colonoscopy- 3 small polyps HYSTEROSCOPY 09/27/2018 Dr. Oh Irizarry; W/ DANDC and endometrial polypectomy PAST SURGICAL HISTORY OF 09/2018 Kidney stones removed MEDS: Current Outpatient Medications on File Prior to Visit Medication Sig FLUoxetine (PROZAC) 20 mg capsule Take 1 capsule by mouth once daily. hydroCHLOROthiazide 25 mg tablet take 1 tablet daily rosuvastatin (CRESTOR) 10 mg tablet Take 1 tablet by mouth daily at bedtime. Syringe with Needle, Safety 3 mL 23 gauge x 1 1 Each once every month. With B-12 injections Luerlock CPAP/BIPAP/OTHER Type .CPAPSettings into a note to see current settings/supplies/DME information. celecoxib (CELEBREX) 200 mg capsule Take 1 capsule by mouth once daily. metoprolol succinate ER (TOPROL XL) 100 mg Take 1 tablet by mouth once daily. Cholecalciferol, Vitamin D3, 125 mcg (5,000 unit) cap Take 1 capsule by mouth once daily. naproxen (NAPROSYN) 500 mg tablet Take 1 tablet by mouth twice daily as needed (for pain/inflammation). Take with food. amLODIPine (NORVASC) 2.5 mg tablet Take 1 tablet by mouth once daily. cyanocobalamin 1,000 mcg/mL Inject 1 mL intramuscularly once every month. CPAP/BIPAP/OTHER Type .CPAPSettings into a note to see current settings/supplies/DME information. peg 3350-Electrolytes (GOLYTELY) 236-22.74-6.74 -5.86 gram suspension Refer to printed prep instructions from your provider. tiZANidine HCl 2 mg capsule Take 1 capsule by mouth three times daily as needed. CPAP Mask refitting when eligible, suitable mask per pt preference, chin strap, head gear, humidity, tubing, lifetime supplies. G47.33 Obstructive Sleep Apnea CPAP 1 Device daily at bedtime. Auto PAP with Settings 10-20 cm H2O, suitable mask per pt preference, chin strap, head gear, humidity, tubing, lifetime supplies. G47.33 Obstructive Sleep Apnea. Current machine broken beyond repair. CPAP AutoPAP 10-20 cmH2O, suitable mask, humidity, filters, chin strap. Lifetime supplies. Dx: 327.23. compliance rpt to Dr. Miller in 6 wks. No current facility-administered medications on file prior to visit. 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 Back Exam: no scar; latissimus dorsi muscle function appears to be intact Abdominal Exam: soft, non-tender, obese, BS+, non-distended Breast Exam: Extremity Lymphedema n/a Asymmetry: L>R slightly Masses: none palpable Axillary Lymphadenopathy: no Scars: none Note: measurements are in centimeters SN to NIPPLE: R: 29 L: 29 WIDTH: R: 19 L: 19 MIDLINE to NIPPLE: R: 14 L: 15 IMF to NIPPLE: R: 10 L: 11 PTOSIS: R: Grade III L: Grade III MEDIALLY DISPLACED NIPPLE: None Appoximate Implant Size: 600 cc Type of Implant: Tissue Stock Worker And Deliverer Assessment: She is a candidate for left breast oncoplastic reduction or implant based via tissue belt fixer to permanent implant She is also considering only a left breast lumpectomy or mastectomy with no additional reconstruction Both reconstruction options were reviewed with the patient - including no plastics reconstruction Ph (more content not included)... [facility] 08-27-2023 Note HNO ID: [id number] Author: Harper Lopez, DO Service: ? Author Type: Physician Type: Progress Notes Filed: 09/04/2023 5:25 AM Note Text: NEW BREAST CANCER - INITIAL SURGICAL VISIT SERVICE DATE: 08/27/2023 REFERRING PROVIDER: Dr. King Monroe [address] [facility] [place] [address] Consult requested for an opinion regarding the evaluation and treatment of breast cancer. My final impression and recommendations will be communicated back to the requesting physician by way of the shared medical record or letter via US mail. SUBJECTIVE: REASON FOR TODAY'S VISIT: Breast Cancer Evaluation HISTORY of PRESENT ILLNESS: Ramona Villegas is a 62 year old female who presents for an evaluation of a new diagnosis of LEFT breast cancer. She had a screening MMG 07/02/23 which identified a developing new asymmetry in the LEFT breast upper outer quadrant. Also new calcifications in her RIGHT breast upper inner posterior depth. Diagnostic MMG and US 07/06/23 identified a 2.5 cm spiculated mass in the LEFT breast @ 1:00, [address] appeared normal. Core bx performed by Dr. Dupree showed showed Infiltrating Ductal Carcinoma with lobular features, Grade I- II, ER positive, NC positive, HER2 non-amplified. RIGHT breast calcifications scheduled for stereo bx on 09/09/23 She has a BMI for 46 Non-smoker Last HgA1c 5.1 Presents with her daughter today to learn about her treatment and surgical options PAST MEDICAL HISTORY: PAST MEDICAL HISTORY Diagnosis Date Anxiety Anxiety Arthritis Hypercholesteraemia Hypertension ZEYNEP (obstructive sleep apnea) 11/15/2013 DME [facility] for AutoPAP Overweight(278.02) Post-menopausal PAST SURGICAL HISTORY: PAST SURGICAL HISTORY Procedure Laterality Date COLONOSCOPY N/A 11/09/2016 COLONOSCOPY 03/23/2022 repeat in 5 years COLONOSCOPY FLX DX W/COLLJ SPEC WHEN PFRMD 09/04/2013 Colonoscopy- 3 small polyps HYSTEROSCOPY 09/27/2018 Dr. Oh Irizarry; W/ NIKKI and endometrial polypectomy PAST SURGICAL HISTORY OF 09/2018 Kidney stones removed OBSTETRIC RELATED HISTORY: Patient did breast feed. Age at of First Child: 30 years of age. Age at Onset of Menses: 15 years of age. Age at Menopause: 61 years of age. Ovaries: both intact Uterus: intact P: 2 Patient's last menstrual period was 10/11/20 Exogenous Hormone Use: Oral Contraceptives Estrogen Progesterone FAMILY HISTORY: FAMILY HISTORY Problem Relation Age of Onset Hypertension Father Heart Father Lipids Father Melanoma Father Arthritis Mother Hypertension Mother Hypertension Maternal Grandfather Hypertension Maternal Grandmother Uterine Cancer Maternal Grandmother Osteoporosis Paternal Grandfather Hypertension Paternal Grandmother Osteoporosis Paternal Grandmother Breast Cancer Paternal Grandmother Breast Cancer Paternal Aunt The patient is not of Ashkenazic Ancestry. 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 Social History Tobacco Use Smoking status: Never Smokeless tobacco: Never Vaping Use Vaping Use: Never used Substance Use Topics Alcohol use: Yes Comment: rare Drug use: No ACTIVE PROBLEM LIST Malignant Neoplasm of Upper-Outer Quadrant of Left Breast in Female, Estrogen Receptor Positive (Hcc) - 08/27/2023 Abnormal Mammogram With Microcalcification - 08/27/2023 Comment: RIGHT Osteoarthritis of Cervical Spine With Myelopathy - 06/04/2021 Tension Headache - 06/04/2021 Chronic Mixed Headache Syndrome - 06/04/2021 Wellness Examination - 06/04/2021 Microhematuria - 09/13/2018 Endometrial Thickening On Ultrasound - 09/13/2018 Post-Menopausal Bleeding - 08/24/2018 Postmenopausal Symptoms - 08/24/2018 Injury of Right Knee - 08/24/2018 Chronic Pain of Right Knee - 08/24/2018 Dysuria - 08/24/2018 Essential Hypertension - 04/12/2018 Urethritis - 04/12/2018 Perimenopausal Disorder - 04/12/2018 Vitamin D Deficiency - 04/12/2018 Low Vitamin B12 Level - 04/12/2018 Fatigue - 04/12/2018 Elevated Serum Creatinine - 04/15/2015 Elevated Fasting Glucose - 04/15/2015 Hypercholesterolemia - 04/08/2015 Zeynep (Obstructive Sleep Apnea) - 11/15/2013 Comment: CHAVO Chacon fax #[phone] phone# [phone] PSG done 2005 - AHI 38.4 Titration done 2006 - reports scanned into Epic Obesity - 11/15/2013 Hypersomnia - 11/15/2013 Hypertension - 08/01/2013 Anxiety - 08/01/2013 CURRENT MEDICATIONS: FLUoxetine (PROZAC) 20 mg capsule Take 1 capsule by mouth once daily. hydroCHLOROthiazide 25 mg tablet take 1 tablet daily rosuvastatin (CRESTOR) 10 mg tablet Take 1 tablet by mouth daily at bedtime. Syringe with Needle, Safety 3 mL 23 gauge x 1 1 Each once every month. With B-12 injections Luerlock CPAP/BIPAP/OTH (more content not included)... [facility] 08-27-2023 History of Present illness Narrative Assessment interrupted by medical provider, unable to complete nursing assessment. Itzel Hanna MA Images from the original note were not included. BREAST RECONSTRUCTION EVALUATION CC: Ramona Villegas is a 62 year old that presents today for breast reconstruction evaluation. HPI: Pt referred by Dr Lopez re: left breast reconstruction s/p left breast cancer Prior breast procedures: Mammogram in Jul and then left breast biopsy on 08/11 Results [facility] by means of stereotactic core biopsy of Left breast on. The pathology report showed Infiltrating Ductal Carcinoma Grade I- II, ER positive, NC positive, HER2 non-amplified. Still unsure of lumpectomy vs mastectomy. Waiting on MRI results. This still needs to be scheduled. Radiation Therapy: Unknown Chemotherapy: unknown PAIN : No: 0 on a scale of 0 to 10 Bra Size: C Desired Bra Size: happy with her current size OB HISTORY: Para: 2 : Patient did breastfeed: approximate length of time 14 months for each child Plan for future pregnancies: No HISTORY OF BREAST DISEASE: No patient history of previous breast disease FAMILY HISTORY OF BREAST CANCER: Yes: paternal grandmother and paternal aunt PMH: PAST MEDICAL HISTORY Diagnosis Date Anxiety Anxiety Arthritis Hypercholesteraemia Hypertension ZEYNEP (obstructive sleep apnea) 11/15/2013 DME [facility] for AutoPAP Overweight(278.02) Post-menopausal PSH: PAST SURGICAL HISTORY Procedure Laterality Date COLONOSCOPY N/A 11/09/2016 COLONOSCOPY 03/23/2022 repeat in 5 years COLONOSCOPY FLX DX W/COLLJ SPEC WHEN PFRMD 09/04/2013 Colonoscopy- 3 small polyps HYSTEROSCOPY 09/27/2018 Dr. Oh Irizarry; W/ D&C and endometrial polypectomy PAST SURGICAL HISTORY OF 09/2018 Kidney stones removed MEDS: Current Outpatient Medications on File Prior to Visit Medication Sig FLUoxetine (PROZAC) 20 mg capsule Take 1 capsule by mouth once daily. hydroCHLOROthiazide 25 mg tablet take 1 tablet daily rosuvastatin (CRESTOR) 10 mg tablet Take 1 tablet by mouth daily at bedtime. Syringe with Needle, Safety 3 mL 23 gauge x 1 1 Each once every month. With B-12 injections Luerlock CPAP/BIPAP/OTHER Type .CPAPSettings into a note to see current settings/supplies/DME information. celecoxib (CELEBREX) 200 mg capsule Take 1 capsule by mouth once daily. metoprolol succinate ER (TOPROL XL) 100 mg Take 1 tablet by mouth once daily. Cholecalciferol, Vitamin D3, 125 mcg (5,000 unit) cap Take 1 capsule by mouth once daily. naproxen (NAPROSYN) 500 mg tablet Take 1 tablet by mouth twice daily as needed (for pain/inflammation). Take with food. amLODIPine (NORVASC) 2.5 mg tablet Take 1 tablet by mouth once daily. cyanocobalamin 1,000 mcg/mL Inject 1 mL intramuscularly once every month. CPAP/BIPAP/OTHER Type .CPAPSettings into a note to see current settings/supplies/DME information. peg 3350-Electrolytes (GOLYTELY) 236-22.74-6.74 -5.86 gram suspension Refer to printed prep instructions from your provider. tiZANidine HCl 2 mg capsule Take 1 capsule by mouth three times daily as needed. CPAP Mask refitting when eligible, suitable mask per pt preference, chin strap, head gear, humidity, tubing, lifetime supplies. G47.33 Obstructive Sleep Apnea CPAP 1 Device daily at bedtime. Auto PAP with Settings 10-20 cm H2O, suitable mask per pt preference, chin strap, head gear, humidity, tubing, lifetime supplies. G47.33 Obstructive Sleep Apnea. Current machine broken beyond repair. CPAP AutoPAP 10-20 cmH2O, suitable mask, humidity, filters, chin strap. Lifetime supplies. Dx: 327.23. compliance rpt to Dr. Miller in 6 wks. No current facility-administered medications on file prior to visit. 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 Back Exam: no scar; latissimus dorsi muscle function appears to be intact Abdominal Exam: soft, non-tender, obese, BS+, non-distended Breast Exam: Extremity Lymphedema n/a Asymmetry: L>R slightly Masses: none palpable Axillary Lymphadenopathy: no Scars: none Note: measurements are in centimeters SN to NIPPLE: R: 29 L: 29 WIDTH: R: 19 L: 19 MIDLINE to NIPPLE: R: 14 L: 15 IMF to NIPPLE: R: 10 L: 11 PTOSIS: R: Grade III L: Grade III MEDIALLY DISPLACED NIPPLE: None Appoximate Implant Size: 600 cc Type of Implant: Tissue Stock Worker And Deliverer Assessment: She is a candidate for left breast oncoplastic reduction or implant based via tissue belt fixer to permanent implant She is also considering only a left breast lumpectomy or mastectomy with no additional reconstruction Both reconstruction options were reviewed with the patient - including no plastics reconstruction Photographs have been taken and will be sent to the insurance company as necessary. Plan: The patient is still considering her options and has not chosen from the reconstruction options listed Our plan will be coordinated with Dr. Lopez She will contact our office with her decision on reconstruction Follow up after decision on reconstruction This visit lasted for more than 30 minutes and greater than 50% of the visit was involved in the discussion of the options for treatment. Consultation requested by Dr. Lopez for an opinion regarding breast reconstruction. My final recommendations will be communicated back to the requesting physician by way of shared Medical record or letter to requesting physician via [place] mail. The patient was seen with Dr. Link who performed the Review of Systems and Past/Family/Social History. I have reviewed these and agree with her findings. The History and Physical as taken by me are documented above and/or dictated below. By signing my name below, I, Nitza Bundy, attest that this documentation has been prepared under the direction and in the presence of Dr. Link Electronically signed, Makeda Bhagat August 27, 2023 2:55 PM Provider Attestation: ISarah MD, personally performed the services described in this documentation. All medical record entries made by the [email or web address] were at my direction and in my presence. I have reviewed the chart and discharge instructions (if applicable) and agree that the record reflects my personal performance and is accurate and complete. Dr. Sarah Link MD August 27, 2023 3:03 PM documented in this encounter [facility] 08-27-2023 History of Present illness Narrative NEW BREAST CANCER - INITIAL SURGICAL VISIT SERVICE DATE: 08/27/2023 REFERRING PROVIDER: Dr. King Monroe [address] [facility] [place] [address] Consult requested for an opinion regarding the evaluation and treatment of breast cancer. My final impression and recommendations will be communicated back to the requesting physician by way of the shared medical record or letter via US mail. SUBJECTIVE: REASON FOR TODAY'S VISIT: Breast Cancer Evaluation HISTORY of PRESENT ILLNESS: Ramona Villegas is a 62 year old female who presents for an evaluation of a new diagnosis of LEFT breast cancer. She had a screening MMG 07/02/23 which identified a developing new asymmetry in the LEFT breast upper outer quadrant. Also new calcifications in her RIGHT breast upper inner posterior depth. Diagnostic MMG and US 07/06/23 identified a 2.5 cm spiculated mass in the LEFT breast @ 1:00, [address] appeared normal. Core bx performed by Dr. Dupree showed showed Infiltrating Ductal Carcinoma with lobular features, Grade I- II, ER positive, NC positive, HER2 non-amplified. RIGHT breast calcifications scheduled for stereo bx on 09/09/23 She has a BMI for 46 Non-smoker Last HgA1c 5.1 Presents with her daughter today to learn about her treatment and surgical options PAST MEDICAL HISTORY: PAST MEDICAL HISTORY Diagnosis Date Anxiety Anxiety Arthritis Hypercholesteraemia Hypertension ZEYNEP (obstructive sleep apnea) 11/15/2013 DME [facility] for AutoPAP Overweight(278.02) Post-menopausal PAST SURGICAL HISTORY: PAST SURGICAL HISTORY Procedure Laterality Date COLONOSCOPY N/A 11/09/2016 COLONOSCOPY 03/23/2022 repeat in 5 years COLONOSCOPY FLX DX W/COLLJ SPEC WHEN PFRMD 09/04/2013 Colonoscopy- 3 small polyps HYSTEROSCOPY 09/27/2018 Dr. Oh Irizarry; W/ D&C and endometrial polypectomy PAST SURGICAL HISTORY OF 09/2018 Kidney stones removed OBSTETRIC RELATED HISTORY: Patient did breast feed. Age at of First Child: 30 years of age. Age at Onset of Menses: 15 years of age. Age at Menopause: 61 years of age. Ovaries: both intact Uterus: intact P: 2 Patient's last menstrual period was 10/11/20 Exogenous Hormone Use: Oral Contraceptives Estrogen Progesterone FAMILY HISTORY: FAMILY HISTORY Problem Relation Age of Onset Hypertension Father Heart Father Lipids Father Melanoma Father Arthritis Mother Hypertension Mother Hypertension Maternal Grandfather Hypertension Maternal Grandmother Uterine Cancer Maternal Grandmother Osteoporosis Paternal Grandfather Hypertension Paternal Grandmother Osteoporosis Paternal Grandmother Breast Cancer Paternal Grandmother Breast Cancer Paternal Aunt The patient is not of Ashkenazic Ancestry. 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 Social History Tobacco Use Smoking status: Never Smokeless tobacco: Never Vaping Use Vaping Use: Never used Substance Use Topics Alcohol use: Yes Comment: rare Drug use: No ACTIVE PROBLEM LIST Malignant Neoplasm of Upper-Outer Quadrant of Left Breast in Female, Estrogen Receptor Positive (Hcc) - 08/27/2023 Abnormal Mammogram With Microcalcification - 08/27/2023 Comment: RIGHT Osteoarthritis of Cervical Spine With Myelopathy - 06/04/2021 Tension Headache - 06/04/2021 Chronic Mixed Headache Syndrome - 06/04/2021 Wellness Examination - 06/04/2021 Microhematuria - 09/13/2018 Endometrial Thickening On Ultrasound - 09/13/2018 Post-Menopausal Bleeding - 08/24/2018 Postmenopausal Symptoms - 08/24/2018 Injury of Right Knee - 08/24/2018 Chronic Pain of Right Knee - 08/24/2018 Dysuria - 08/24/2018 Essential Hypertension - 04/12/2018 Urethritis - 04/12/2018 Perimenopausal Disorder - 04/12/2018 Vitamin D Deficiency - 04/12/2018 Low Vitamin B12 Level - 04/12/2018 Fatigue - 04/12/2018 Elevated Serum Creatinine - 04/15/2015 Elevated Fasting Glucose - 04/15/2015 Hypercholesterolemia - 04/08/2015 Zeynep (Obstructive Sleep Apnea) - 11/15/2013 Comment: [facility] Chacon fax #[phone] phone# [phone] PSG done 2005 - AHI 38.4 Titration done 2006 - reports scanned into Epic Obesity - 11/15/2013 Hypersomnia - 11/15/2013 Hypertension - 08/01/2013 Anxiety - 08/01/2013 CURRENT MEDICATIONS: FLUoxetine (PROZAC) 20 mg capsule Take 1 capsule by mouth once daily. hydroCHLOROthiazide 25 mg tablet take 1 tablet daily rosuvastatin (CRESTOR) 10 mg tablet Take 1 tablet by mouth daily at bedtime. Syringe with Needle, Safety 3 mL 23 gauge x 1 1 Each once every month. With B-12 injections Luerlock CPAP/BIPAP/OTHER Type .CPAPSettings into a note to see current settings/supplies/DME information. celecoxib (CELEBREX) 200 mg capsule Take 1 capsule by mouth once daily. metoprolol succinate ER (TOPROL XL) 100 mg Take 1 tablet by mouth once daily. Cholecalciferol, Vitamin D3, 125 mcg (5,000 unit) cap Take 1 capsule by mouth once daily. naproxen (NAPROSYN) 500 mg tablet Take 1 tablet by mouth twice daily as needed (for pain/inflammation). Take with food. amLODIPine (NORVASC) 2.5 mg tablet Take 1 tablet by mouth once daily. cyanocobalamin 1,000 mcg/mL Inject 1 mL intramuscularly once every month. CPAP/BIPAP/OTHER Type .CPAPSettings into a note to see current settings/supplies/DME information. peg 3350-Electrolytes (GOLYTELY) 236-22.74-6.74 -5.86 gram suspension Refer to printed prep instructions from your provider. tiZANidine HCl 2 mg capsule Take 1 capsule by mouth three times daily as needed. CPAP Mask refitting when eligible, suitable mask per pt preference, chin strap, head gear, humidity, tubing, lifetime supplies. G47.33 Obstructive Sleep Apnea CPAP 1 Device daily at bedtime. Auto PAP with Settings 10-20 cm H2O, suitable mask per pt preference, chin strap, head gear, humidity, tubing, lifetime supplies. G47.33 Obstructive Sleep Apnea. Current machine broken beyond repair. CPAP AutoPAP 10-20 cmH2O, suitable mask, humidity, filters, chin strap. Lifetime supplies. Dx: 327.23. compliance rpt to Dr. Miller in 6 wks. ALLERGIES No Known Allergies REVIEW OF SYSTEMS: GENERAL: No weight loss, malaise or fevers HEENT: Negative for frequent or significant headaches, No changes in hearing or vision RESPIRATORY: Negative for cough, wheezing, or shortness of breath CARDIOVASCULAR: Negative for chest pain, leg swelling, or heart palpitations MUSCULOSKELETAL: Negative for joint pain or swelling, back pain or muscle pain, no upper extremity swelling or lymphedema ABD: no abdominal pain INTEGUMENTARY: Denies Scleroderma or Lupus. Denies chronic skin conditions. BREASTS:She denies any new palpable breast masses, skin changes, nipple discharge, nipple retraction, breast pain or masses in her axilla. All other reviewed and negative other than HPI. OBJECTIVE: PHYSICAL EXAM: Ht: 5'6 Wt: 285 lb BMI: 46 kg/m GENERAL:well-nourished, healthy, alert and oriented x 3, calm SKIN:warm, dry, skin color, texture, turgor normal HEAD/EYES:normocephalic, atraumatic, and anicteric NECK: supple, symmetrical, no thyromegaly RESPIRATORY: Respirations regular & non-labored ABDOMEN: soft, nondistended. No hepatomegaly., No masses MUSCULOSKELETAL: No observed limitations in range of motion of upper extremities. Patient ambulates independently BREASTS: The Patient was examined in the upright and supine positions. Breasts are symmetric. There are no significant fibrocystic changes. Patient's cup size is C/D grade III ptosis RIGHT breast soft, no dominant masses, nipple everted, no discharge, no skin changes RIGHT axilla no palpable axillary lymphadenopathy LEFT breast soft, no dominant masses appreciated on exam, nipple everted, no discharge, no skin changes LEFT axilla no palpable axillary lymphadenopathy Regional Lymph Nodes: There is no concerning supraclavicular, infraclavicular or cervical lymphadenopathy. IMAGING TO DATE: BILATERAL DIGITAL SCREENING MAMMOGRAM WITH CAD: 07/02/2023 HISTORY: Encounter For Screening Mammogram For Malignant Neoplasm Of Breast /Screening Mammogram - patient reports NO breast symptoms /priors available for comparison. RESULT: TECHNIQUE: The study was acquired using full field digital technology and interpreted from soft copy. Current study was also evaluated with a Computer Aided Detection (CAD). Comparison is made to exams dated: 06/12/2022 mammogram, 05/27/2021 mammogram, and 09/02/2018 mammogram - [facility]. The breasts are heterogeneously dense, which may obscure small masses. There are grouped calcifications in the right breast upper inner aspect posterior depth. There is a focal asymmetry in the left breast upper outer aspect posterior depth. No other significant masses or calcifications are seen in either breast. IMPRESSION: INCOMPLETE: NEEDS ADDITIONAL IMAGING EVALUATION The grouped calcifications in the right breast upper inner aspect posterior depth are indeterminate. Magnification views as well as a diagnostic mammogram are recommended. The focal asymmetry in the left breast upper outer aspect posterior depth is indeterminate. Additional views are recommended. BILATERAL DIGITAL DIAGNOSTIC MAMMOGRAM TOMOSYNTHESIS WITH CAD: 08/03/2023 HISTORY: / Call back/abnormal mamm: Right / Call back/abnormal mamm: Left /priors available for comparison Abnormality Of Both Breasts On Screening Mammogram Abnormality Of Both Breasts On Screening Mammogram. RESULT: TECHNIQUE: The study was acquired using full field digital technology and interpreted from soft copy. Digital Breast Tomosynthesis (DBT) images were obtained and used to assist in the interpretation of this examination. Current study was also evaluated with a Computer Aided Detection (CAD). Comparison is made to exams dated: 07/02/2023 mammogram, 06/12/2022 mammogram, and 05/27/2021 mammogram - [facility]. The breasts are heterogeneously dense, which may obscure small masses. There are clustered heterogeneous punctate calcifications in the right breast upper inner aspect posterior depth. There is a 2.5 cm irregular mass with a spiculated margin in the left breast at 1 o'clock middle depth. No other significant masses or calcifications are seen in either breast. IMPRESSION: HIGHLY SUGGESTIVE OF MALIGNANCY - APPROPRIATE ACTION SHOULD BE TAKEN The clustered heterogeneous punctate calcifications in the right breast upper inner aspect posterior depth are at a moderate suspicion for malignancy. A stereotactic biopsy is recommended. The 2.5 cm irregular mass in the left breast at 1 o'clock middle depth is highly suggestive of malignancy. An ultrasound is recommended. LIMITED ULTRASOUND OF LEFT BREAST AND AXILLA: 08/03/2023 RESULT: Comparison is made to exams dated: 07/02/2023 mammogram, 06/12/2022 mammogram, and 05/27/2021 mammogram - [facility]. Color flow and real-time ultrasound of the left breast upper outer quadrant and axilla regions were performed. Armendariz scale images of the real-time examination were reviewed. There is a 2.5 cm x 2.4 cm x 1.5 cm irregular solid mass with a spiculated margin in the left breast at 1 o'clock middle depth 3 cm from the nipple. This irregular solid mass is hypoechoic. This correlates with mammography findings. Color flow imaging demonstrates that there is no vascularity present. No significant abnormalities were seen sonographically in the left axilla. IMPRESSION: HIGHLY SUGGESTIVE OF MALIGNANCY - APPROPRIATE ACTION SHOULD BE TAKEN The 2.5 cm x 2.4 cm x 1.5 cm irregular solid mass in the left breast resembles carcinoma and is highly suggestive of malignancy. PATHOLOGY RESULTS: 08/11/23 FINAL DIAGNOSIS A. Left breast, core biopsy: - Invasive ductal carcinoma with lobular features, provisional Rhiannon grade 1-2 (of 3), measuring almost 12 mm in this sampling BREAST BIOMARKER Breast Biomarkers RESULTS: Estrogen Receptor (ER) Positive 91-100 % Progesterone Receptor (NC) Positive 51-60 % HER2 (ERBB2) IMMUNOHISTOCHEMISTRY ASSAY Interpretation: NEGATIVE for HER2 (ERBB2) Expression Score: 1+ GENETIC TESTING: discussed that consult to be placed. SOZO LEFT arm 0.9 ASSESSMENT: Ramona Villegas is a 62 year old female with a LEFT breast 2.5 cm x 2.4 cm x 1.5 cm mass @ 1:00, [address] appear normal. ER+NC+HER2- [id number] RIGHT breast cluster of calcifications upper inner aspect, posterior depth, stereo bx recommended - scheduled for 09/09/23 PLAN: DIAGNOSIS: (C50.412, Z17.0) Malignant neoplasm of upper-outer quadrant of left breast in female, estrogen receptor positive (HCC) (primary encounter diagnosis) (R92.0) Abnormal mammogram with microcalcification I have examined Ms. Villegas and reviewed the physical findings, imaging and pathology reports with her. A discussion was held with the patient regarding the local-regional, as well as systemic treatment of her Breast Cancer. We discussed role of breast conservation surgery or mastectomy, indications and risks of sentinel lymph node biopsy, possibility of axillary lymph node dissection, breast reconstruction, and role of systemic and radiation therapy. Discussed that on review of her imaging with radiology today, due to breast density and lobular features, suggestion for breast MRI to better delineate the extent of disease. MRI scheduled for 09/15/23 - (first available) REFERRAL(S) for breast cancer treatment planning considerations: Medical oncology consultation (Dr. Lopez), Radiation oncology consultation (Dr. Guevara), plastic surgery (Dr. Link), genetics Discussed indications for radiation if she chose a lumpectomy or had positive lymph nodes - will see rad onc Discussed indications for adjuvant systemic therapy, oncotype, endocrine therapy - will see med onc Discussed indications, pros and cons of sentinel lymph node biopsy. The patient had a basseline L-Dex SOZO measurement which I reviewed today, as noted above in the health record. We reviewed that bioimpedance spectroscopy helps identify the early onset of lymphedema in an arm or leg before patients experience noticeable swelling. Research has shown that 92% of patients with early detection of lymphedema using L-Dex combined with breast rehab intervention do not progress to chronic lymphedema. Whenever possible, patients are tested for baseline L-Dex score before cancer treatment begins and then are reassessed during regular follow-up visits using the SOZO device. If the patient's L-Dex score increases above normal levels, that is a sign that lymphedema is developing and a referral is made to physical therapy for further evaluation and early compression treatment. Lymphedema assessment with the SOZO L-Dex score is recommended to be done at baseline prior to surgery and at follow-up survivorship visits to screen for lymphedema per NCCN guidelines of breast cancer survivorship. Discussed surgical times and recovery times All questions were answered and the patient had no further concerns at this time Ms. Villegas was given our contact information if she has any further questions or concerns. Harper Lopez DO, [facility] Breast Surgeon [facility] Cc: DO Dr. Jessica Tavera Dr., Dr. documented in this encounter [facility] 08-25-2023 Miscellaneous Notes Tristian, Called patient to offer an appointment with Dr. Lopez on 08/27/2023, patient accepted, scheduled. documented in this encounter [facility] 08-25-2023 Miscellaneous Notes Tristian, Received a call from the patient, she recently had a biopsy, and is diagnosed with breast cancer. She was requested by Dr. Dupree to schedule an appointment with us. Patient is scheduled to have a another biopsy on the other breast on 09/09/2023 (per patient, that was the soonest available. Is it OK to schedule the patient before the second biopsy or wait till we have the results. Thank you documented in this encounter [facility] 08-23-2023 Miscellaneous Notes I see that she is referred to the breast surgeons per preference/ recommendations from Dr. Dupree I am familiar with the breast center surgeons and she will have great care Please recommend Ted Monroe DO Images from the original note were not included. Please see pt [employer] message- Ramona Rivera Wstr [facility] My Chart Rx Pool (supporting Ted Monroe DO) 15 hours ago (7:09 PM) [place] After my recent bad mammogram I was sent to a general surgeon for a biopsy, and he plans to meet with me on Wednesday to go over the results. He told me to come with questions. My question for you is, who should I be consulting with? Would a breast surgeon be a better option? What about oncology? Who do you think would be a good fit? I'm feeling a little overwhelmed and could really use some good medical advise and a bit of hand holding. Is this something Dr. Dupree will do? My experience with general surgeons has been rather negative (see ex ). Is Dr Dupree a good option or should I explore others? Any help is appreciated. documented in this encounter [facility] 08-20-2023 Note HNO ID: [id number] Author: Corwin Dupree MD Service: ? Author Type: Physician Type: Progress Notes Filed: 08/20/2023 2:12 PM Note Text: Patient is status post ultrasound-guided needle core biopsy of her left breast for lesion in the upper inner quadrant. Mass on ultrasound is a greatest diameter of 2.5 cm pathology report came back as invasive ductal carcinoma with estrogen and progesterone receptors being positive and HER2/shailesh being negative. Patient also has an area of microcalcifications for which she is going to be getting a stereotactic breast biopsy done on the of this month. Objective:Blood pressure 146/84, pulse 61, temperature 36 ?C (96.8 ?F), temperature source Temporal, resp. rate 16, weight 129.7 kg (286 lb), last menstrual period 07/25/2015, SpO2 96 %. No exam done Assessment:Malignant neoplasm of upper-inner quadrant of left breast in female, estrogen receptor positive (hcc) (primary encounter diagnosis) Plan: I am going to be referring her to the breast surgeons up in [place]. [facility] 08-16-2023 Miscellaneous Notes Turned into KEYONNA Lombardo documented in this encounter [facility] 08-13-2023 Note HNO ID: [id number] Author: Jm Mcguire MD Service: ? Author Type: Physician Type: Progress Notes Filed: 08/13/2023 5:27 PM Note Text: Agree with recommendation for stereotactic biopsy of the heterogeneous calcifications in the right breast upper inner aspect posterior depth. An order has been placed. This is not a billable event. [facility] 08-13-2023 History of Present illness Narrative Agree with recommendation for stereotactic biopsy of the heterogeneous calcifications in the right breast upper inner aspect posterior depth. An order has been placed. This is not a billable event. documented in this encounter [facility] 08-13-2023 Note HNO ID: [id number] Author: Corwin Dupree MD Service: ? Author Type: Physician Type: Progress Notes Filed: 08/13/2023 1:40 PM Note Text: Preoperative diagnosis: Abnormal mammogram to left breast Postoperative diagnosis: The same Procedure: Ultrasound-guided needle core biopsy of abnormal mammogram to left breast Surgeon: Cierra Procedure: Ultrasound of the left breast in the upper outer quadrant revealed the lesion in question. I prepped the skin with Betadine. I injected 1% lidocaine plain. Under ultrasound guidance I directed local down towards the lesion. Under ultrasound guidance 2 needle core biopsies were obtained. Under ultrasound guidance a small titanium clip was placed. Patient tolerated the procedure sterile dressings were applied. [facility] 08-13-2023 History of Present illness Narrative Preoperative diagnosis: Abnormal mammogram to left breast Postoperative diagnosis: The same Procedure: Ultrasound-guided needle core biopsy of abnormal mammogram to left breast Surgeon: Cierra Procedure: Ultrasound of the left breast in the upper outer quadrant revealed the lesion in question. I prepped the skin with Betadine. I injected 1% lidocaine plain. Under ultrasound guidance I directed local down towards the lesion. Under ultrasound guidance 2 needle core biopsies were obtained. Under ultrasound guidance a small titanium clip was placed. Patient tolerated the procedure sterile dressings were applied. UNIVERSAL PROTOCOL / SAFETY CHECKLIST Procedure to be Performed: Ultrasound Guided Needle Core Biopsy left breast Sign In: A Moment of CARE was completed. Personnel directly involved with the procedure wore the appropriate PPE (Personal Protective Equipment). Special equipment: Ultra clip breast biopsy and breast tissue marker. Patient/Surrogate Stated/Verified: PATIENT VERIFIED(optional for EMERGENT procedures): Patient name, Date of , Relevant allergies, and The intended procedure Time Out Communication: Intended patient and procedure match the source documents. Consent documented and matches the intended procedure. Relevant labs, photos, and/or imaging studies have been reviewed. Correct side/site marked and visible. Medications required for procedure verified. No fire risk assessment and interventions applicable. Implant(s) inserted: Correct implant(s) confirmed including size and side. and Expiration date(s) reviewed. Sign Out: SIGN OUT (optional for EMERGENT procedures): All specimen containers correctly labeled. No instruments, equipment or retained foreign bodies applicable. Post-procedure follow-up management communicated and Plan of Care Visit completed when applicable. Jessi Adams RN documented in this encounter [facility] 08-11-2023 Note HNO ID: [id number] Author: Halley Queen, [email or web address] Service: ? Author Type: Casket Coverer Type: Progress Notes Filed: 08/11/2023 1:41 PM Note Text: Radiology Service Progress Note PATIENT NAME: Ramona Villegas DATE OF SERVICE: August 11, 2023 TIME: 1:40 PM PATIENT IDENTITY VERIFICATION COMPLETED USING TWO (2) IDENTIFIERS: Name and Date of confirmed by patient verbally. FALL SCREENING: Has the patient had 2 falls in the last year or 1 fall with injury or currently using an Ambulatory Assistive Device (Walker, Cane, Wheelchair, Crutches, etc.)? No PATIENT GENDER DATA: Female. status: : No status: NO. PATIENT RELEVANT IMPLANT DATA REVIEWED: Not Applicable RADIOLOGY DEPARTMENT: Mammography PERIPHERAL IV DATA: Not applicable SIGNED BY: Halley Queen [email or web address] August 11, 2023 1:40 PM [facility] 08-11-2023 History of Present illness Narrative Radiology Service Progress Note PATIENT NAME: Ramona Villegas DATE OF SERVICE: August 11, 2023 TIME: 1:40 PM PATIENT IDENTITY VERIFICATION COMPLETED USING TWO (2) IDENTIFIERS: Name and Date of confirmed by patient verbally. FALL SCREENING: Has the patient had 2 falls in the last year or 1 fall with injury or currently using an Ambulatory Assistive Device (Walker, Cane, Wheelchair, Crutches, etc.)? No PATIENT GENDER DATA: Female. status: : No status: NO. PATIENT RELEVANT IMPLANT DATA REVIEWED: Not Applicable RADIOLOGY DEPARTMENT: Mammography PERIPHERAL IV DATA: Not applicable SIGNED BY: Halley Queen [employer] Graciela August 11, 2023 1:40 PM documented in this encounter [facility] 08-11-2023 Note HNO ID: [id number] Author: Jessi Adams RN Service: ? Author Type: Registered Nurse Type: Progress Notes Filed: 08/13/2023 1:40 PM Note Text: UNIVERSAL PROTOCOL / SAFETY CHECKLIST Procedure to be Performed: Ultrasound Guided Needle Core Biopsy left breast Sign In: A Moment of CARE was completed. Personnel directly involved with the procedure wore the appropriate PPE (Personal Protective Equipment). Special equipment: Ultra clip breast biopsy and breast tissue marker. Patient/Surrogate Stated/Verified: PATIENT VERIFIED(optional for EMERGENT procedures): Patient name, Date of , Relevant allergies, and The intended procedure Time Out Communication: Intended patient and procedure match the source documents. Consent documented and matches the intended procedure. Relevant labs, photos, and/or imaging studies have been reviewed. Correct side/site marked and visible. Medications required for procedure verified. No fire risk assessment and interventions applicable. Implant(s) inserted: Correct implant(s) confirmed including size and side. and Expiration date(s) reviewed. Sign Out: SIGN OUT (optional for EMERGENT procedures): All specimen containers correctly labeled. No instruments, equipment or retained foreign bodies applicable. Post-procedure follow-up management communicated and Plan of Care Visit completed when applicable. Jessi Adams RN [facility] 08-11-2023 Instructions Jessi Adams RN - 08/11/2023 12:23 PM EDT The following instructions are important for you related to your office visit today with the [facility]. Instructions After OFFICE BASED BREAST BIOPSY Please do not take aspirin or other blood thinners for the next few days. After the procedure, Steri-Strips and a dressing will be placed on your small incision. The dressing may be removed in three to five days after the procedure. The Steri-Strips should be left in place until they fall off, usually 10-14 days. You may shower with the dressing in place, it is waterproof. You may also shower with the Steri-strips in place, just do not scrub over the area. If you have bleeding from the biopsy site, hold pressure with a clean gauze. If the bleeding continues, contact our office immediately. I recommend taking Advil or Tylenol for the discomfort. You should wear a comfortable but somewhat tight fitting bra. If you have significant bruising, an ice pack may improve your discomfort. No tub bathing, swimming or hot tubs. If you note any additional difficulties, questions, or concerns, you should contact our office immediately @ [phone] and ask to be transferred to the General Surgery department. documented in this encounter [facility] 08-05-2023 Miscellaneous Notes Patient was scheduled with general surgery for evaluation of abnormal mammogram. Stanley Prescott PA-C documented in this encounter [facility] 08-03-2023 Note HNO ID: [id number] Author: Corwin Dupree MD Service: ? Author Type: Physician Type: Progress Notes Filed: 08/09/2023 1:14 PM Note Text: HISTORY AND PHYSICAL - BREAST COMPLAINT Ramona Villegas 1960 REFERRING PHYSICIAN: Ted Monroe DO CHIEF COMPLAINT: Abnormal mammogram (primary encounter diagnosis) HPI: The patient is a 62 year old female with a complaint of an abnormal mammogram. The patient had a mammogram with ultrasound on 08/03/23 which demonstrated : IMPRESSION: HIGHLY SUGGESTIVE OF MALIGNANCY - APPROPRIATE ACTION SHOULD BE TAKEN The clustered heterogeneous punctate calcifications in the right breast upper inner aspect posterior depth are at a moderate suspicion for malignancy. A stereotactic biopsy is recommended. The 2.5 cm irregular mass in the left breast at 1 o'clock middle depth is highly suggestive of malignancy. An ultrasound is recommended. The patient denies a history of breast masses. She does perform a self breast exam routinely. She notes no skin changes. She denies nipple discharge. She notes no axillary masses. She notes no family history of breast problems. She notes no significant breast trauma or breast difficulties in the past. The patient is being seen by me today at the request of Dr. Ted Monroe DO for my opinion and advice regarding Abnormal mammogram (primary encounter diagnosis). PAST MEDICAL HISTORY Diagnosis Date Anxiety Anxiety Arthritis Hypercholesteraemia Hypertension ZEYNEP (obstructive sleep apnea) 11/15/2013 [facility] Overweight(278.02) Post-menopausal PAST SURGICAL HISTORY Procedure Laterality Date COLONOSCOPY N/A 11/09/2016 COLONOSCOPY 03/23/2022 repeat in 5 years COLONOSCOPY FLX DX W/COLLJ SPEC WHEN PFRMD 09/04/2013 Colonoscopy- 3 small polyps HYSTEROSCOPY 09/27/2018 Dr. Oh Irizarry; W/ NIKKI and endometrial polypectomy PAST SURGICAL HISTORY OF 09/2018 Kidney stones removed Current Outpatient Medications Medication Sig Dispense Refill hydroCHLOROthiazide 25 mg tablet take 1 tablet daily 90 tablet 1 rosuvastatin (CRESTOR) 10 mg tablet Take 1 tablet by mouth daily at bedtime. 90 tablet 0 FLUoxetine (PROZAC) 20 mg capsule Take 1 capsule by mouth once daily. 90 capsule 0 Syringe with Needle, Safety 3 mL 23 gauge x 1 1 Each once every month. With B-12 injections Luerlock 12 Each 0 CPAP/BIPAP/OTHER Type .CPAPSettings into a note to see current settings/supplies/DME information. 1 Each 0 celecoxib (CELEBREX) 200 mg capsule Take 1 capsule by mouth once daily. 90 capsule 3 metoprolol succinate ER (TOPROL XL) 100 mg Take 1 tablet by mouth once daily. 90 tablet 3 Cholecalciferol, Vitamin D3, 125 mcg (5,000 unit) cap Take 1 capsule by mouth once daily. 90 capsule 3 naproxen (NAPROSYN) 500 mg tablet Take 1 tablet by mouth twice daily as needed (for pain/inflammation). Take with food. 60 tablet 0 amLODIPine (NORVASC) 2.5 mg tablet Take 1 tablet by mouth once daily. 90 tablet 0 cyanocobalamin 1,000 mcg/mL Inject 1 mL intramuscularly once every month. 3 mL 3 CPAP/BIPAP/OTHER Type .CPAPSettings into a note to see current settings/supplies/DME information. 1 Each 0 CPAP Mask refitting when eligible, suitable mask per pt preference, chin strap, head gear, humidity, tubing, lifetime supplies. G47.33 Obstructive Sleep Apnea 1 Device 0 CPAP 1 Device daily at bedtime. Auto PAP with Settings 10-20 cm H2O, suitable mask per pt preference, chin strap, head gear, humidity, tubing, lifetime supplies. G47.33 Obstructive Sleep Apnea. Current machine broken beyond repair. 1 Device 0 CPAP AutoPAP 10-20 cmH2O, suitable mask, humidity, filters, chin strap. Lifetime supplies. Dx: 327.23. compliance rpt to Dr. Miller in 6 wks. 1 Device 0 peg 3350-Electrolytes (GOLYTELY) 236-22.74-6.74 -5.86 gram suspension Refer to printed prep instructions from your provider. (Patient not taking: Reported on 08/03/2023) 4000 mL 0 tiZANidine HCl 2 mg capsule Take 1 capsule by mouth three times daily as needed. (Patient not taking: Reported on 08/03/2023) 30 capsule 1 No current facility-administered medications for this visit. ALLERGIES: Patient has no known allergies. PERSONAL HISTORY: Social History Tobacco Use Smoking status: Never Smokeless tobacco: Never Vaping Use Vaping Use: Never used Substance Use Topics Alcohol use: Yes Comment: occasionally Drug use: No FAMILY HISTORY: FAMILY HISTORY Problem Relation Age of Onset Arthritis Mother Hypertension Mother Hypertension Father Heart Father Cancer Father melanoma Lipids Father Hypertension Maternal Grandmother Cancer Maternal Grandmother uterine Hypertension Maternal Grandfather Hypertension Paternal Grandmother Osteoporosis Paternal Grandmother Breast Cancer Paternal Grandmother Osteoporosis Paternal Grandfather REVIEW OF SYMPTOMS: The review of systems data was entered by the nurse (more content not included)... [facility] 08-03-2023 Note HNO ID: [id number] Author: Veronica Ulloa RDMS Service: ? Author Type: B2B Sales Manager Type: Progress Notes Filed: 08/03/2023 1:26 PM Note Text: Radiology Service Progress Note PATIENT NAME: Ramona Villegas DATE OF SERVICE: August 03, 2023 TIME: 1:25 PM PATIENT IDENTITY VERIFICATION COMPLETED USING TWO (2) IDENTIFIERS: Name and Date of confirmed by patient verbally. FALL SCREENING: Has the patient had 2 falls in the last year or 1 fall with injury or currently using an Ambulatory Assistive Device (Walker, Cane, Wheelchair, Crutches, etc.)? No PATIENT GENDER DATA: Female. status: : No status: NO. PATIENT RELEVANT IMPLANT DATA REVIEWED: Not Applicable RADIOLOGY DEPARTMENT: Ultrasound PERIPHERAL IV DATA: Not applicable SIGNED BY: Veronica Ulloa RDMS RVT August 03, 2023 1:25 PM [facility] 08-03-2023 Note HNO ID: [id number] Author: Darshana White [email or web address] Service: ? Author Type: Casket Coverer Type: Progress Notes Filed: 08/03/2023 9:45 AM Note Text: Radiology Service Progress Note PATIENT NAME: Ramona Villegas DATE OF SERVICE: August 03, 2023 TIME: 8:54 AM PATIENT IDENTITY VERIFICATION COMPLETED USING TWO (2) IDENTIFIERS: Name and Date of confirmed by patient verbally. FALL SCREENING: Has the patient had 2 falls in the last year or 1 fall with injury or currently using an Ambulatory Assistive Device (Walker, Cane, Wheelchair, Crutches, etc.)? No PATIENT GENDER DATA: Female. status: : No status: NO. PATIENT RELEVANT IMPLANT DATA REVIEWED: Not Applicable RADIOLOGY DEPARTMENT: Mammography PERIPHERAL IV DATA: Not applicable SIGNED BY: Eddie Powers August 03, 2023 8:54 AM [facility] 08-03-2023 History of Present illness Narrative Radiology Service Progress Note PATIENT NAME: Ramona Villegas DATE OF SERVICE: August 03, 2023 TIME: 1:25 PM PATIENT IDENTITY VERIFICATION COMPLETED USING TWO (2) IDENTIFIERS: Name and Date of confirmed by patient verbally. FALL SCREENING: Has the patient had 2 falls in the last year or 1 fall with injury or currently using an Ambulatory Assistive Device (Walker, Cane, Wheelchair, Crutches, etc.)? No PATIENT GENDER DATA: Female. status: : No status: NO. PATIENT RELEVANT IMPLANT DATA REVIEWED: Not Applicable RADIOLOGY DEPARTMENT: Ultrasound PERIPHERAL IV DATA: Not applicable SIGNED BY: Veronica Ulloa RDMS RVT August 03, 2023 1:25 PM documented in this encounter [facility] 08-03-2023 History of Present illness Narrative Radiology Service Progress Note PATIENT NAME: Ramona Villegas DATE OF SERVICE: August 03, 2023 TIME: 8:54 AM PATIENT IDENTITY VERIFICATION COMPLETED USING TWO (2) IDENTIFIERS: Name and Date of confirmed by patient verbally. FALL SCREENING: Has the patient had 2 falls in the last year or 1 fall with injury or currently using an Ambulatory Assistive Device (Walker, Cane, Wheelchair, Crutches, etc.)? No PATIENT GENDER DATA: Female. status: : No status: NO. PATIENT RELEVANT IMPLANT DATA REVIEWED: Not Applicable RADIOLOGY DEPARTMENT: Mammography PERIPHERAL IV DATA: Not applicable SIGNED BY: Josefina Powerso Graciela August 03, 2023 8:54 AM documented in this encounter [facility] 07-22-2023 Miscellaneous Notes The following approved medication requests have been transmitted electronically. Requested Prescriptions Signed Prescriptions Disp Refills hydroCHLOROthiazide 25 mg tablet 90 tablet 1 Sig: take 1 tablet daily Authorizing Provider: SHAR BOLANOS MD Patient last visit 12/03/2022 Follow up appointment scheduled 12/28/2023 Xena Dawson Ma documented in this encounter [facility] 07-02-2023 Note HNO ID: [id number] Author: Darshana White Mammo Tech Service: ? Author Type: Casket Coverer Type: Progress Notes Filed: 07/02/2023 8:27 AM Note Text: Radiology Service Progress Note PATIENT NAME: Ramona Villegas DATE OF SERVICE: July 02, 2023 TIME: 8:09 AM PATIENT IDENTITY VERIFICATION COMPLETED USING TWO (2) IDENTIFIERS: Name and Date of confirmed by patient verbally. FALL SCREENING: Has the patient had 2 falls in the last year or 1 fall with injury or currently using an Ambulatory Assistive Device (Walker, Cane, Wheelchair, Crutches, etc.)? No PATIENT GENDER DATA: Female. status: : No status: NO. PATIENT RELEVANT IMPLANT DATA REVIEWED: Not Applicable RADIOLOGY DEPARTMENT: Mammography PERIPHERAL IV DATA: Not applicable SIGNED BY: Eddie Powers July 02, 2023 8:09 AM [facility] 07-02-2023 Miscellaneous Notes Patient active MyChart. Patient notified via [employer] message to the previous [employer] message. Kimberly Rosas MA Called and left a detailed voicemail notifying patient of providers message. Hospital phone number was left for patient to call and either set up exam with Dr Monroe or get a referral to [facility]. Padmini Guidry, RN I am okay with helping manage her Pap/pelvic exams or she can be seen by [facility], whichever she is more comfortable. Not sure when she is due for her next pap etc Ted Monroe DO Due to [place] [facility] closing., patient is transferring [facility] records to [facility]. Is patient to establish with a [facility] or okay to follow PCP? Please advise & place referral if needed to establish with specialty. Kimberly Rosas MA documented in this encounter [facility] 07-02-2023 History of Present illness Narrative Radiology Service Progress Note PATIENT NAME: Ramona Villegas DATE OF SERVICE: July 02, 2023 TIME: 8:09 AM PATIENT IDENTITY VERIFICATION COMPLETED USING TWO (2) IDENTIFIERS: Name and Date of confirmed by patient verbally. FALL SCREENING: Has the patient had 2 falls in the last year or 1 fall with injury or currently using an Ambulatory Assistive Device (Walker, Cane, Wheelchair, Crutches, etc.)? No PATIENT GENDER DATA: Female. status: : No status: NO. PATIENT RELEVANT IMPLANT DATA REVIEWED: Not Applicable RADIOLOGY DEPARTMENT: Mammography PERIPHERAL IV DATA: Not applicable SIGNED BY: Eddie Powers July 02, 2023 8:09 AM documented in this encounter [facility] 06-23-2023 Miscellaneous Notes Patient phones requesting refills as follows: Requested Prescriptions Pending Prescriptions Disp Refills rosuvastatin (CRESTOR) 10 mg tablet 90 tablet 0 Sig: Take 1 tablet by mouth daily at bedtime. BAHMAN-2/23/23 Labs-11/14/22 NOV-12/28/23 Please review and advise. Sherron Villegas LPN documented in this encounter [facility] 05-25-2023 Miscellaneous Notes Mammogram ordered. Danilo order pended Mignon Lombardo documented in this encounter [facility] 03-11-2023 Miscellaneous Notes Bahman--12/03/22 Nov--nothing scheduled Last refill--12/03/22 90 with 0 refills Last refill--11/14/22 documented in this encounter [facility] 01-27-2023 Miscellaneous Notes [facility]. Amparo Robledo APRN.SAFETY SPEC Patient phones requesting refills as follows: Requested Prescriptions Pending Prescriptions Disp Refills Syringe with Needle, Safety 3 mL 23 gauge x 1 12 Each 0 Si Each once every month. With B-12 injections Luerlock BAHMAN-12/03/22 Labs-11/17/22 NOV-none Please review and advise. Sherron Villegas LPN documented in this encounter [facility] 01-25-2023 Miscellaneous Notes Patient phones requesting refills as follows: Requested Prescriptions Pending Prescriptions Disp Refills hydroCHLOROthiazide 25 mg tablet 30 tablet 0 Sig: Take 1 tablet by mouth once daily. BAHMAN-12/03/22 Labs-11/14/22 NOV-none Please review and advise. Sherron Villegas LPN Patient comment: ge from [facility]: Order Placed: Jan 22, 2023 Shipment has been canceled and will not be sent to you Prescription Icon Hydrochlorothiazide Tabs 25 mg 30 qty 30-day supply Rx Number [id number]# [id number] Prescription details Prescriber: Amparo Greene New Fill Canceled Alert Icon Your prescriber is requesting that you call their office before we fill your HYDROCHLOROTHIAZIDE TABS 25MG prescription. Please contact your prescriber to discuss and ask them to e - prescrib documented in this encounter [facility] 01-01-2023 Miscellaneous Notes Faxed order, office notes, demographics, and sleep study to: DME name: [facility] fax: [phone] DME ph: documented in this encounter [facility] 12-31-2022 Miscellaneous Notes Orders faxed to [facility] in [place] via [employer]. Cassidy Gordon LPN Order completed per request. Order pended for Auto Pap. Please review and advise. Thank you. NORBERT Baldwin TC to patient with results, verbalized understanding, states she has been using [facility] in [place] and would like orders sent there. fax #[phone] Cassidy Gordon LPN ----- Message from Jefry Bertrand Jr., MD sent at 12/25/2022 9:10 PM EDT ----- Please let pt know that we would like to order her an autopap device based on results of sleep study. If ok with this, we can then place order. As I may be out of the office, please advise LINSEY that what is needed is an Auto PAP 15-20 cmH2O with humidity and small res med mirage quattro full face mask with lifetime supplies. Jefry Bertrand MD documented in this encounter [facility] 12-30-2022 Miscellaneous Notes TC to pt and she states she already received this information. See TE dated 12/28/22. Veronica Robison LPN ----- Message from Jefry Bertrand Jr., MD sent at 12/25/2022 9:10 PM EDT ----- Please let pt know that we would like to order her an autopap device based on results of sleep study. If ok with this, we can then place order. As I may be out of the office, please advise LINSEY that what is needed is an Auto PAP 15-20 cmH2O with humidity and small res med mirage quattro full face mask with lifetime supplies. Jefry Bertrand MD documented in this encounter [facility] 12-21-2022 Note HNO ID: [id number] Author: Naima DuttonT Service: ? Author Type: ? Type: Progress Notes Filed: 12/21/2022 6:37 AM Note Text: Sleep Study Check-In Documentation Date: December 21, 2022 Name: Ramona Villegas Patient was accompanied by Self. Location: [place] Latex allergy: No Tape allergy: No Current medications were reviewed with the patient:Yes Sleep aid taken by patient for the sleep study: Independence of sleep aid: Not Applicable Procedure was explained to the patient and all questions were answered. PAP treatment discussed and shown to patient: Yes If PAP used enter mask info: Mask Name Mirage Quattro Air Make Resmed MaskTypeFull Face Mask SizeSmall Chin Sharp Used No ------- Knowledge Program (KP): KP was not completed in Ring by patient and accepted Study type: PAP titration Adverse Event: No (If yes create a new abstract) Comments: Patient was advised to follow up with their ordering provider regarding test results Naima Fong-Ankit [facility] 12-21-2022 History of Present illness Narrative Sleep Study Check-In Documentation Date: December 21, 2022 Name: Ramona Villegas Patient was accompanied by Self. Location: [place] Latex allergy: No Tape allergy: No Current medications were reviewed with the patient:Yes Sleep aid taken by patient for the sleep study: Independence of sleep aid: Not Applicable Procedure was explained to the patient and all questions were answered. PAP treatment discussed and shown to patient: Yes If PAP used enter mask info: Mask Name Mirage Quattro Air Make Resmed MaskTypeFull Face Mask SizeSmall Chin Sharp Used No Knowledge Program (KP): KP was not completed in Ring by patient and accepted Study type: PAP titration Adverse Event: No (If yes create a new abstract) Comments: Patient was advised to follow up with their ordering provider regarding test results Naima Perezummie Poly-T documented in this encounter [facility] 12-10-2022 Miscellaneous Notes The following approved medication requests have been transmitted electronically. Requested Prescriptions Signed Prescriptions Disp Refills Syringe with Needle, Safety 3 mL 23 gauge x 1 12 Each 0 Si Each once every month. With B-12 injections Luerlock Authorizing Provider: AMPARO ROBLEDO APRN.ELIANA Hermes from [facility] calls and states that with syringe with Needle safety 3 mL 23 gauge x 1 prescription order provider must clarify which needle (Integra, eclipse or luerlock). Can just resend prescription with new clarification. Harper Archibald RN documented in this encounter [facility] 12-03-2022 Note HNO ID: [id number] Author: Amparo Robledo APRN.ELIANA Service: ? Author Type: Nurse Practitioner Type: Progress Notes Filed: 12/03/2022 3:29 PM Note Text: Chief Complaint Patient presents with: Physical HPI Ramona Villegas is a 62 year old female who presents here today for Above Complaints.. Olesya is an established patient of Dr. Fer DO. She is a new patient to me today. Concerns today.. HTN -- Amlodipin 2.5 mg daily, metorprolol 100 mg daily, and HCTZ 25 mg daily. She states compliant with current blood pressure medication(s). She does not check BP at home. She denies chest pain, shortness of breath, palpitations, dizziness, leg edema, headaches, or vision changes. Last 14 Encounter BP Readings: Date: BP: 12/03/2022 108/64 03/23/2022 133/71 06/04/2021 128/78 06/25/2020 130/76 11/02/2019 132/90 03/17/2019 138/80 09/13/2018 120/60 08/22/2018 136/86 05/05/2018 122/58 04/12/2018 130/80 03/02/2018 129/83 01/11/2018 130/80 01/02/2018 130/80 12/24/2017 144/78 Anxiety/depression -- Prozac 20 mg daily. Stable. Well controlled. Notices a huge difference when she forgets to take it for a day or two. Tension headaches -- Elavil daily --- not taking this anymore. Did not seem to help. Has tizanidine prn but tries to save this for back pain when needed. Has relief with ibuprofen normally. Reports headaches have worsened since recent COVID infection 2-3 weeks ago. Osteoarthritis -- Celebrex daily and tizanidine prn. Stable. Well controlled. Recent lab work drawn on 11/14 and reviewed. HLD -- No current medication regimen. Willing to start statin. Tries to watch diet but admits she is not able to change diet much more. Component Latest Ref Rng AND Units 05/25/2020 05/22/2021 11/14/2022 Cholesterol, Total <200 mg/dL 236 (H) 243 (H) 261 (H) Triglyceride <150 mg/dL 181 (H) 215 (H) 153 (H) HDL Cholesterol >39 mg/dL 44 38 (L) 46 LDL Cholesterol <100 mg/dL 156 (H) 162 (H) 184 (H) Non HDL Cholesterol <130 mg/dL 192 (H) 205 (H) 215 (H) Fasting Time hrs 12 12 14 VLDL Cholesterol <30 mg/dL 36 (H) 43 (H) 31 (H) TC:HDL Ratio <5.10 5.36 (H) 6.39 (H) 5.67 (H) LDL:HDL Ratio <2.54 3.55 (H) 4.26 (H) 4.00 (H) Past medical history, appointments, medications, allergies reviewed. Previous Medical History PAST MEDICAL HISTORY Diagnosis Date Anxiety Anxiety Arthritis Hypercholesteraemia Hypertension ZEYNEP (obstructive sleep apnea) 11/15/2013 [facility] for AutoP[facility] Overweight(278.02) Post-menopausal Previous Surgical History PAST SURGICAL HISTORY Procedure Laterality Date COLONOSCOPY N/A 11/09/2016 COLONOSCOPY 03/23/2022 repeat in 5 years COLONOSCOPY FLX DX W/COLLJ SPEC WHEN PFRMD 09/04/2013 Colonoscopy- 3 small polyps HYSTEROSCOPY 09/27/2018 Dr. Oh Irizarry; W/ NIKKI and endometrial polypectomy PAST SURGICAL HISTORY OF 09/2018 Kidney stones removed Family History FAMILY HISTORY Problem Relation Age of Onset Arthritis Mother Hypertension Mother Hypertension Father Heart Father Cancer Father melanoma Lipids Father Hypertension Maternal Grandmother Cancer Maternal Grandmother uterine Hypertension Maternal Grandfather Hypertension Paternal Grandmother Osteoporosis Paternal Grandmother Breast Cancer Paternal Grandmother Osteoporosis Paternal Grandfather Patient Allergies ALLERGIES No Known Allergies Current Medications Current Outpatient Medications on File Prior to Visit Medication Sig FLUoxetine (PROZAC) 20 mg capsule Take 1 capsule by mouth once daily. hydroCHLOROthiazide (HYDRODIURIL, ESIDRIX) 25 mg tablet TAKE 1 TABLET DAILY celecoxib (CELEBREX) 200 mg capsule Take 1 capsule by mouth once daily. Syringe with Needle, Safety 3 mL 23 gauge x 1 1 Each once every month. With B-12 injections metoprolol succinate ER (TOPROL XL) 100 mg Take 1 tablet by mouth once daily. Cholecalciferol, Vitamin D3, 125 mcg (5,000 unit) cap Take 1 capsule by mouth once daily. cyanocobalamin 1,000 mcg/mL Inject 1 mL intramuscularly once every month. CPAP/BIPAP/OTHER Type .CPAPSettings into a note to see current settings/supplies/DME information. peg 3350-Electrolytes (GOLYTELY) 236-22.74-6.74 -5.86 gram suspension Refer to printed prep instructions from your provider. amLODIPine (NORVASC) 5 mg tablet TAKE 1 TABLET DAILY WITH BREAKFAST amitriptyline (ELAVIL) 10 mg tablet Take 1 tablet by mouth daily at bedtime. tiZANidine HCl 2 mg capsule Take 1 capsule by mouth three times daily as needed. CPAP Mask refitting when eligible, suitable mask per pt preference, chin strap, head gear, humidity, tubing, lifetime supplies. G47.33 Obstructive Sleep Apnea CPAP 1 Device daily at bedtime. Auto PAP with Settings 10-20 cm H2O, suitable mask per pt preference, chin strap, head gear, humidity, tubing, lifetime supplies. G47.33 Obstructive Sleep Apnea. Current machine broken beyond repair. CPAP AutoPAP 10-20 cmH2O (more content not included)... [facility] 11-13-2022 Miscellaneous Notes Patient active MyChart. Patient notified via Rem[employer]At message. Kimberly Rosas MA Will proceed with in lab titration. Jefry Bertrand MD documented in this encounter [facility] 11-09-2022 Miscellaneous Notes FLUoxetine (PROZAC) 20 mg capsule [Amparo Robledo] Patient Comment: Prescription runs out the same time as sceduled appointment, but I worry about a break while waiting for the mail. Can I have a stop-gap supply prescribed? documented in this encounter [facility] 11-02-2022 History of Present illness Narrative Sleep Study Check-In Documentation Date: November 02, 2022 Name: Ramona Villegas Comments: HST was returned in working order with all sleep questionnaires Diana Liz PSS Nomad# [id number] Mail out date:10/26/22 [employer] Shipping #:[id number] [employer] Return #:[id number] October 26, 2022 An order has been received for Home Sleep Apnea Test (HSAT) from [facility] Staff/[employer] Staff Orders. Visit prep complete - Please refer to the sleep study order (under procedures tab) for protocol details and special instructions. The sleep study is scheduled for 10/27/22. Insurance: Payor: [facility] / Plan: [place] [employer] / Product Type: PPO / Payer/Plan Subscr Sex Relation Sub. Ins. ID Effective Group Num 1. [employer] RAMONA WINN 1960 Female Self [id number] 10/11/21 [address], [facility] [address] Maddi Fleming documented in this encounter [facility] 10-19-2022 Miscellaneous Notes Please clarify as to why this order was not completed through the [facility] sleep dept. Jefry Bertrand MD Clarified with [facility], needs new HSAT order. Pended new order. Please file. Kimberly Rosas MA documented in this encounter [facility] 10-15-2022 Miscellaneous Notes Pt notified of such. Lab orders placed. Please let patient know. Thank you, Amparo De Leon APRN.CNP Spoke with pt we booked a physical appointment for November she is asking if you could place labs so she can do them prior. PCP team has not seen patient in over 1.5 years. Needs routine appointment. Will refill x 1 month only right now until appointment is scheduled. Thank you, Amparo De Leon APRN.CNP The following approved medication requests have been transmitted electronically. Requested Prescriptions Signed Prescriptions Disp Refills hydroCHLOROthiazide (HYDRODIURIL, ESIDRIX) 25 mg tablet 30 tablet 0 Sig: TAKE 1 TABLET DAILY Authorizing Provider: AMPARO DE LEON APRN.ELIANA Patient has been identified by name and date of : Yes,Patient phones for refill(s): Requested Prescriptions Pending Prescriptions Disp Refills hydroCHLOROthiazide (HYDRODIURIL, ESIDRIX) 25 mg tablet [Pharmacy Med Name: HYDROCHLOROTHIAZIDE TABS 25MG] 90 tablet 3 Sig: TAKE 1 TABLET DAILY Date of last office visit in primary care: 06/04/21 Last 2 Encounter Wt Readings: Date: Wt: 03/23/2022 120.2 kg (264 lb 15.9 oz) 06/04/2021 120.2 kg (265 lb) Previous labs/tests for medication: Not applicable Please advise. Thank you. Jeannie Turk LPN documented in this encounter [facility] 10-15-2022 Miscellaneous Notes Another phone note with med refill was sent to schedule for appt needed. Patient needs appt Ted Monroe DO Patient phones requesting refills as follows: Patient comment: Last time [facility] let me know they didn't have the particular kind of syringe you prescribed and to request something else. Requested Prescriptions Pending Prescriptions Disp Refills Syringe with Needle, Safety 3 mL 23 gauge x 1 12 Each 0 Si Each once every month. With B-12 injections BAHMAN-06/04/21 Labs-05/22/21 NOV-none Please review and advise. Sherron Villegas LPN documented in this encounter [facility] 06-12-2022 Miscellaneous Notes June 12, 2022 PID: [id number] Ramona Villegas [address] [place] [address] Dear Ms. Villegas, We are pleased to inform you that the results of your recent breast imaging exam on 06/12/2022 are normal. Your mammogram demonstrates that you [...] report will be kept on file at [facility] as part of your permanent medical record and are available for your continuing care. Thank you for allowing us to help in meeting your health care needs. Sincerely, Dr. Aguilar Interpreting Radiologist [facility] (Normal over 40) documented in this encounter [facility] 05-25-2022 Miscellaneous Notes The following approved medication requests have been transmitted electronically. Requested Prescriptions Signed Prescriptions Disp Refills metoprolol succinate ER (TOPROL XL) 100 mg 90 tablet 3 Sig: Take 1 tablet by mouth once daily. Authorizing Provider: AMPARO DE LEON Cholecalciferol, Vitamin D3, 125 mcg (5,000 unit) cap 90 capsule 3 Sig: Take 1 capsule by mouth once daily. Authorizing Provider: AMPARO DE LEON APRN.SAFETY SPEC Last Office Visit: 06/04/2021 Future Office Visit: Non3 Last Medication Refill: Cholecalciferol 06/04/2021 90 cap 3 refill Metoprolol 06/04/2021 90 cap 3 refill Date of Last Labs: 05/31/2021 documented in this encounter [facility] 05-04-2022 Miscellaneous Notes Patient phones requesting refills as follows: Pending Prescriptions Disp Refills CYANOCOBALAMIN (VIT B-12) 1,000 MCG/ML INJECTION SOLUTION 3 mL 3 Sig: Inject 1 mL intramuscularly once every month. BOGDAN: No BAHMAN-06/04/21 NOV-05/22/21 NOV-none med filled 07/08/21 Please review and advise. Sherron Villegas LPN documented in this encounter [facility] 03-30-2022 Miscellaneous Notes Please call patient - colonoscopy was normal - I recommend repeat colonoscopy in 10 years - her last two were normal. Please change colonoscopy screening from 5 to 10 years Beth Maguire APRN.SAFETY SPEC documented in this encounter [facility] 03-25-2022 Instructions Madonna Romero MD - 03/25/2022 11:56 AM EDT Continue PAP Therapy - Continue Auto CPAP at 10-20 cmH2O. -We ordered a home sleep test to evaluate your sleep apnea and to qualify you for CPAP supplies. Please make sure you make an appointment for your home sleep test and we will send a new order to your DME company for new supplies and a new machine as soon as we have the results back. -Please make sure you sleep 7 to 9 hours every day and avoid taking naps during the weekends so he can build enough sleep pressure to sleep nearly at night. - Remember to clean your mask and equipment regularly, as directed. - You should be eligible for new supplies approximately every 3-6 months, depending on your insurance coverage. Contact your Durable Medical Equipment (DME) company for new supplies as needed. - Follow up in [address] Bertrand or our sleep nurse practitioner. documented in this encounter [facility] 03-24-2022 Note HNO ID: [id number] Author: Jefry Bertrand Jr., MD Service: ? Author Type: Physician Type: Progress Notes Filed: 04/06/2022 11:45 AM Note Text: [facility] New Patient Evaluation PATIENT NAME: Ramona Villegas DATE OF SERVICE: March 24, 2022 CONSULTING PROVIDER: Ted Monroe [address] [facility] [address] REASON FOR CONSULT: Ted Monroe sends the patient for an opinion about sleep apnea. My findings and recommendations will be transmitted electronically via shared medical record to the consulting provider. HPI: Ramona Villegas is a 61 year old female with past medical history of morbid obesity, hypertension, hypercholesterolemia, anxiety, obstructive sleep apnea on CPAP treatment since 2005. Previous sleep study: PSG done 08/24/06 before weight gain, had AHI of 31.3, and went to subsequent user of AUtopap at 10-10 cm water. Please refer to records. The patient moved from [place] to [place]. The patient current machine was both in 2013, and her machine from her insurance was broken in 2013 and she bought a new machine [id number]. chine CPAP information: Machine name : Pankaj DME company: [employer] [place] Mask: Fullface mask The patient compliance report was reviewed from Maya Ocasio, our nurse sleep practitioner from the last visit: PAP History: Uses AutoPAP for 7 nights per week. Current PAP settin-20 cm H2O. Difficulties with AutoPAP: None Objective PAP compliance data: 04/05/18 to 05/04/18 Compliance download: 98%%?>=4 hours 90/95th percentile pressure: 12.5 Leaks 68.0,?residual AHI 4.4 ? Mask type: Full face mask Mask issues: Air leak Uses chin strap: No Uses ramp function: Yes Uses humidity: Yes Patient is experiencing some leaks from the mask and also she think that the machine is not working well for her and it has been a while since she had a new machine. The patient is a still using her CPAP machine every night and she cannot sleep without it. Sleep-related history: SLEEP-WAKE SCHEDULE Bedtime: 10-11 PM. She does not have a hard time falling asleep. 15 mins to fall asleep. Once to go bathroom 6:30 AM satisfied with her sleep. Wake time: 6-6:30 AM, with an alarm. After falling asleep: she does not usually wake up during the night. Naps during the weekends, 1-3 hours. On weekends, she maintains the same sleep schedule. 8 hours Average total sleep time (in a 24 hour period): 6 hours. SLEEP-RELATED DETAILS Preferred sleep position: side Breathing disturbances and other behaviors during sleep: snoring, stopping breathing during sleep and moving around a lot. If she is not using the machine Bruxism: No GERD or aspiration: No Waking up with heart pounding or racing: No Anxiety or rumination: No She does not report having an urge to move the legs in the evening (when resting) that is accompanied or caused by uncomfortable and/or unpleasant sensations in the legs. She has not been told that she has leg kicking during sleep. She denies any history of parasomnias. Daytime sleepiness is not a problem. She does not report sleep paralysis or sleep-related hallucinations or cataplexy . 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 Yes, She denies falling asleep or dozing off when driving. She does take naps during the weekends 1 to 2 hours. She does not drink caffeinated beverages. Tea, 4 cups There has not been a recent change in weight. Gained 20 pounds in the last year Patient Questionnaires Sleep Scores PHQ-9 04/12/2018 08/22/2018 03/17/2019 Score 6 9 13 PROMIS Global Health - (T-Scores - the mean of general population = 50. Five points is a clinically meaningful difference.) 03/17/2019 05/15/2020 06/03/2021 Physical T-Score 26.7 32.4 26.7 Mental T-Score 31.3 41.1 41.1 PAST TREATMENTS: None PRIOR SLEEP STUDIES: PSG on 2005. OTHER RELEVANT LABS AND STUDIES: PAST MEDICAL HISTORY Diagnosis Date - Anxiety - Anxiety - Arthritis - Hypercholesteraemia - Hypertension - ZEYNEP (obstructive sleep apnea) 11/15/2013 DME [employer] for AutoPAP - Overweight(278.02) - Post-menopausal PAST SURGICAL HISTORY Procedure Laterality Date - COLONOSCOPY N/A 11/09/2016 - COLONOSCOPY FLX DX W/COLLJ SPEC WHEN PFRMD 09/04/2013 Colonoscopy- 3 small polyps - HYSTEROSCOPY 09/27/2018 Dr. Oh Irizarry; W/ DANDC and endometrial polypectomy - PAST SURGICAL HISTORY OF 09/2018 Kidney stones removed ACTIVE PROBLEM LIST Hypertension Anxiety Zeynep (Obstructive Sleep Apnea) Obesity Hypersomnia Hypercholesterolemia Elevated Serum Creatinine Elevated Fasting Glucose Essential Hypertension Urethritis Perimenopausal Disorder Vitamin D Deficiency Low Vitamin B12 Level Fatigue Post-Menopausal Bleeding Postmenopausal Symptoms Injury of Right (more content not included)... [facility] 03-24-2022 History of Present illness Narrative Images from the original note were not included. [facility] New Patient Evaluation PATIENT NAME: Ramona Villegas DATE OF SERVICE: March 24, 2022 CONSULTING PROVIDER: Ted Monroe [address] [facility] [address] REASON FOR CONSULT: Ted Monroe sends the patient for an opinion about sleep apnea. My findings and recommendations will be transmitted electronically via shared medical record to the consulting provider. HPI: Ramona Villegas is a 61 year old female with past medical history of morbid obesity, hypertension, hypercholesterolemia, anxiety, obstructive sleep apnea on CPAP treatment since 2005. Previous sleep study: PSG done 08/24/06 before weight gain, had AHI of 31.3, and went to subsequent user of AUtopap at 10-10 cm water. Please refer to records. The patient moved from [place] to [place]. The patient current machine was both in 2013, and her machine from her insurance was broken in 2013 and she bought a new machine [id number]. chine CPAP information: Machine name : Sarika DME company: [employer] [place] Mask: Fullface mask The patient compliance report was reviewed from Maya Ocasio, our nurse sleep practitioner from the last visit: PAP History: Uses AutoPAP for 7 nights per week. Current PAP settin-20 cm H2O. Difficulties with AutoPAP: None Objective PAP compliance data: 04/05/18 to 05/04/18 Compliance download: 98%% >=4 hours 90/95th percentile pressure: 12.5 Leaks 68.0, residual AHI 4.4 Mask type: Full face mask Mask issues: Air leak Uses chin strap: No Uses ramp function: Yes Uses humidity: Yes Patient is experiencing some leaks from the mask and also she think that the machine is not working well for her and it has been a while since she had a new machine. The patient is a still using her CPAP machine every night and she cannot sleep without it. Sleep-related history: SLEEP-WAKE SCHEDULE Bedtime: 10-11 PM. She does not have a hard time falling asleep. 15 mins to fall asleep. Once to go bathroom 6:30 AM satisfied with her sleep. Wake time: 6-6:30 AM, with an alarm. After falling asleep: she does not usually wake up during the night. Naps during the weekends, 1-3 hours. On weekends, she maintains the same sleep schedule. 8 hours Average total sleep time (in a 24 hour period): 6 hours. SLEEP-RELATED DETAILS Preferred sleep position: side Breathing disturbances and other behaviors during sleep: snoring, stopping breathing during sleep and moving around a lot. If she is not using the machine Bruxism: No GERD or aspiration: No Waking up with heart pounding or racing: No Anxiety or rumination: No She does not report having an urge to move the legs in the evening (when resting) that is accompanied or caused by uncomfortable and/or unpleasant sensations in the legs. She has not been told that she has leg kicking during sleep. She denies any history of parasomnias. Daytime sleepiness is not a problem. She does not report sleep paralysis or sleep-related hallucinations or cataplexy . 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 Yes, She denies falling asleep or dozing off when driving. She does take naps during the weekends 1 to 2 hours. She does not drink caffeinated beverages. Tea, 4 cups There has not been a recent change in weight. Gained 20 pounds in the last year Patient Questionnaires Sleep Scores PHQ-9 04/12/2018 08/22/2018 03/17/2019 Score 6 9 13 PROMIS Global Health - (T-Scores - the mean of general population = 50. Five points is a clinically meaningful difference.) 03/17/2019 05/15/2020 06/03/2021 Physical T-Score 26.7 32.4 26.7 Mental T-Score 31.3 41.1 41.1 PAST TREATMENTS: None PRIOR SLEEP STUDIES: PSG on 2005. OTHER RELEVANT LABS AND STUDIES: PAST MEDICAL HISTORY Diagnosis Date Anxiety Anxiety Arthritis Hypercholesteraemia Hypertension ZEYNEP (obstructive sleep apnea) 11/15/2013 DME [employer] for AutoPAP Overweight(278.02) Post-menopausal PAST SURGICAL HISTORY Procedure Laterality Date COLONOSCOPY N/A 11/09/2016 COLONOSCOPY FLX DX W/COLLJ SPEC WHEN PFRMD 09/04/2013 Colonoscopy- 3 small polyps HYSTEROSCOPY 09/27/2018 Dr. Oh Irizarry; W/ D&C and endometrial polypectomy PAST SURGICAL HISTORY OF 09/2018 Kidney stones removed ACTIVE PROBLEM LIST Hypertension Anxiety Zeynep (Obstructive Sleep Apnea) Obesity Hypersomnia Hypercholesterolemia Elevated Serum Creatinine Elevated Fasting Glucose Essential Hypertension Urethritis Perimenopausal Disorder Vitamin D Deficiency Low Vitamin B12 Level Fatigue Post-Menopausal Bleeding Postmenopausal Symptoms Injury of Right Knee Chronic Pain of Right Knee Dysuria Microhematuria Endometrial Thickening On Ultrasound Osteoarthritis of Cervical Spine With Myelopathy Tension Headache Chronic Mixed Headache Syndrome Wellness Examination Allergies As of Date: 03/24/2022 (No Known Allergies) Fully Assessed 03/23/2022 CURRENT MEDICATIONS: CPAP/BIPAP/OTHER Type .CPAPSettings into a note to see current settings/supplies/DME information. peg 3350-Electrolytes (GOLYTELY) 236-22.74-6.74 -5.86 gram suspension Refer to printed prep instructions from your provider. amLODIPine (NORVASC) 5 mg tablet TAKE 1 TABLET DAILY WITH BREAKFAST FLUoxetine (PROZAC) 20 mg capsule Take 1 capsule by mouth once daily. hydroCHLOROthiazide (HYDRODIURIL, ESIDRIX) 25 mg tablet TAKE 1 TABLET DAILY cyanocobalamin 1,000 mcg/mL Inject 1 mL intramuscularly once every month. Syringe with Needle, Safety 3 mL 23 gauge x 1 1 Each once every month. With B-12 injections celecoxib (CELEBREX) 200 mg capsule Take 1 capsule by mouth once daily. Cholecalciferol, Vitamin D3, 125 mcg (5,000 unit) cap Take 1 capsule by mouth once daily. metoprolol succinate ER (TOPROL XL) 100 mg Take 1 tablet by mouth once daily. amitriptyline (ELAVIL) 10 mg tablet Take 1 tablet by mouth daily at bedtime. tiZANidine HCl 2 mg capsule Take 1 capsule by mouth three times daily as needed. CPAP Mask refitting when eligible, suitable mask per pt preference, chin strap, head gear, humidity, tubing, lifetime supplies. G47.33 Obstructive Sleep Apnea CPAP 1 Device daily at bedtime. Auto PAP with Settings 10-20 cm H2O, suitable mask per pt preference, chin strap, head gear, humidity, tubing, lifetime supplies. G47.33 Obstructive Sleep Apnea. Current machine broken beyond repair. CPAP AutoPAP 10-20 cmH2O, suitable mask, humidity, filters, chin strap. Lifetime supplies. Dx: 327.23. compliance rpt to Dr. Miller in 6 wks. Prior Hypersomnia/Narcolepsy Medications (20 years) Some values may be hidden. Unless noted otherwise, only the newest values recorded on each date are displayed. Hypersomnia/Narcolepsy Medications No data to display. Prior RLS Medications (last 20 years) Some values may be hidden. Unless noted otherwise, only the newest values recorded on each date are displayed. RLS Medications No data to display. Prior Insomnia Medications (last 20 years) Some values may be hidden. Unless noted otherwise, only the newest values recorded on each date are displayed. Insomnia Medications amitriptyline (ELAVIL) 10 mg tablet Dose: 10 mg AT BEDTIME Starting date: 06/04/2021 (active) FLUoxetine (PROZAC) 10 mg capsule Dose: 10 mg DAILY Starting date: 11/25/2017 Ending date: 01/11/2018 (Discontinued) FLUoxetine (PROZAC) 20 mg capsule Dose: 20 mg DAILY Starting date: 01/11/2018 Ending date: 10/31/2018 (Discontinued) FLUoxetine (PROZAC) 20 mg capsule Dose: 20 mg DAILY Starting date: 10/31/2018 Ending date: 11/21/2019 (Discontinued) FLUoxetine (PROZAC) 20 mg capsule Dose: 20 mg DAILY Starting date: 11/21/2019 Ending date: 10/30/2020 (Discontinued) FLUoxetine (PROZAC) 20 mg capsule Dose: 20 mg DAILY Starting date: 10/30/2020 Ending date: 11/11/2021 (Discontinued) FLUoxetine (PROZAC) 20 mg capsule Dose: 20 mg DAILY Starting date: 11/12/2021 (active) midazolam (PF) injection (VERSED) Dose: Starting date: 07/02/2020 Ending date: 07/02/2020 (Discontinued) midazolam (PF) 1-5 mg injection (VERSED) Dose: 1-5 mg As Directed DOSING DIRECTED BY PHYSICIAN FOR PROCEDURAL SEDATION ONLY Starting date: 03/23/2022 Ending date: 03/23/2022 PARoxetine (PAXIL) 10 mg tablet Dose: 10 mg DAILY TAPERING OFF Starting date: 07/22/2017 Ending date: 07/27/2017 (Discontinued) PARoxetine (PAXIL) 10 mg tablet Dose: 10 mg DAILY TAPERING OFF Starting date: 07/27/2017 Ending date: 07/27/2017 (Discontinued) PARoxetine (PAXIL) 10 mg tablet Dose: 10 mg DAILY TAPERING OFF Starting date: 07/27/2017 Ending date: 08/25/2017 (Discontinued) PARoxetine (PAXIL) 10 mg tablet Dose: 10 mg DAILY Starting date: 08/25/2017 Ending date: 11/25/2017 (Discontinued) PARoxetine (PAXIL) 10 mg tablet Dose: TAKE 1 TABLET DAILY (TAPERING OFF) Starting date: 11/01/2017 Ending date: 11/25/2017 (Discontinued) PARoxetine (PAXIL) 20 mg tablet Dose: 20 mg DAILY Starting date: 08/01/2013 Ending date: 12/04/2013 (Discontinued) PARoxetine (PAXIL) 20 mg tablet Dose: 20 mg DAILY Starting date: 12/04/2013 Ending date: 12/22/2013 (Discontinued) PARoxetine (PAXIL) 20 mg tablet Dose: 20 mg DAILY Starting date: 12/22/2013 Ending date: 10/12/2014 (Discontinued) PARoxetine (PAXIL) 20 mg tablet Dose: 20 mg DAILY Starting date: 10/12/2014 Ending date: 02/27/2015 (Discontinued) PARoxetine (PAXIL) 20 mg tablet Dose: 20 mg DAILY Starting date: 02/27/2015 Ending date: 10/19/2015 (Discontinued) PARoxetine (PAXIL) 20 mg tablet Dose: 20 mg DAILY Starting date: 10/21/2015 Ending date: 01/03/2016 (Discontinued) PARoxetine (PAXIL) 20 mg tablet Dose: 20 mg DAILY Starting date: 01/03/2016 Ending date: 08/11/2016 (Discontinued) PARoxetine (PAXIL) 20 mg tablet Dose: 20 mg DAILY Starting date: 08/12/2016 Ending date: 2016 (Discontinued) PARoxetine (PAXIL) 20 mg tablet Dose: 20 mg DAILY Starting date: 2016 Ending date: 01/31/2017 (Discontinued) PARoxetine (PAXIL) 20 mg tablet Dose: TAKE 1 TABLET DAILY Starting date: 02/02/2017 Ending date: 04/14/2017 (Discontinued) PARoxetine (PAXIL) 20 mg tablet Dose: TAKE 1 TABLET DAILY Starting date: 04/15/2017 Ending date: 05/17/2017 (Discontinued) PARoxetine (PAXIL) 20 mg tablet Dose: 20 mg DAILY TAPERING OFF Starting date: 05/17/2017 Ending date: 07/22/2017 (Discontinued) Medication marked as long-term Review of Systems SOCIAL HISTORY: Social History Tobacco Use Smoking status: Never Smoker Smokeless tobacco: Never Used Substance Use Topics Alcohol use: Yes Comment: occasionally Drug use: No FAMILY HISTORY: FAMILY HISTORY Problem Relation Age of Onset Arthritis Mother Hypertension Mother Hypertension Father Heart Father Cancer Father melanoma Lipids Father Hypertension Maternal Grandmother Cancer Maternal Grandmother uterine Hypertension Maternal Grandfather Hypertension Paternal Grandmother Osteoporosis Paternal Grandmother Breast Cancer Paternal Grandmother Osteoporosis Paternal Grandfather There is no family history of sleep disorders. PHYSICAL EXAMINATION: Vital Signs: LMP 07/25/2015 GENERAL: well appearing, alert, in no acute distress PULMONARY: breathing comfortably on room air , no coughing noted and no wheezing noted SKIN: no rashes, lesions or skin changes IMPRESSION/PLAN: Ramona Villegas is a 61 year old female with past medical history of morbid obesity, hypertension, hypercholesterolemia, anxiety, obstructive sleep apnea on CPAP treatment since 2005. The patient is here today to reestablish care with sleep medicine and to get a new machine since she is experiencing leaks and some issues with her old device that she pulled by herself back in 2013. The patient is also sleeping on average 6 hours and she is doing naps during the day which makes her fatigued and sleepy sometimes during the weekdays. The patient was recommended to continue using her CPAP machine until we get her a new CPAP device. We ordered a new home sleep test to reevaluate the patient sleep apnea since she gained more than 20 pounds in the last 2 years and it has been more than 10 years since she had had a sleep study. We also recommend the patient avoid napping during the day and try to sleep 7 to 9 hours every day so she do not need to take any long naps during the weekends. We also recommend the patient use a nasal mask to minimize the leaks and to make sure that her nasal allergies are well treated so she can tolerate the nasal mask. G47.33 ZEYNEP (obstructive sleep apnea) (primary encounter diagnosis) Z72.820 Sleep deprivation 1. Obstructive sleep apnea: - Continue Auto CPAP at 10-20 cmH2O for with her current device. -We ordered a new home sleep test to reevaluate the patient sleep apnea since she gained 20 pounds in the last few years and it has been more than 10 years since she had her sleep test. -The patient was recommended to use a nasal mask to minimize the leak that she is experiencing at night and she was showed different nasal mask from different companies and was asked to call her DME company to see which meds they will cover for her. - Remember to clean your mask and equipment regularly, as directed. - You should be eligible for new supplies approximately every 3-6 months, depending on your insurance coverage. Contact your Durable Medical Equipment (DME) company for new supplies as needed. 2. Chronic sleep deprivation -The patient was recommended to sleep 7 to 9 hours daily since she is chronically sleep deprived because she sleeps 6 hours only when she is trying to compensate for his sleep loss during the weekend. -The patient was strongly advised against taking naps during the day even during the weekends so she can build enough sleep pressure to sleep easily at night. -The patient was recommended to avoid staying on bed while she is not asleep and limit her sleep only during her time on bed. Follow-up after [address] Bertrand. The plan was discussed with the sleep staff physician Dr. Bertrand. Madonna Romero MD Sleep Fellow [facility] STAFF PHYSICIAN NOTE OF PERSONAL INVOLVEMENT IN CARE I have reviewed the progress note obtained and documented by Madonna Romero MD and I personally participated in the queen components. I have discussed the case and management of the patient's care. The following comments revise or confirm relevant queen components of the note. For this virtual visit, the patient has been identified by name and (N and photo identification as well if available). Those taking part in visit: Patient and Physician and Fellow via [employer]. Consent for this visit received from patient. Patient is a pleasant 61 year old right handed female with past medical history of htn, obesity, anxiety. Known dx of ZEYNEP and on PAP therapy since 2005. The patient underwent PSG in 2005 showing AHI of 31.3. Currently on AutoPAP 10-20 cmH2O with her receiving her last PAP device in 2013. Denies pressure or mask issues. Her current sleep schedule as above does result in some degree of sleep loss. That said pt is avg 6 hours of sleep nightly. No definite s/s of ZEYNEP while using PAP. Of note, pt has gained at least 20 pounds since last study. I do not have an updated PAP data download for review. Exam as above and appears (limited by video) that pt has Kaba IV. Discussed with patient. She is in need of a new PAP device with her's being now 8 years old As it has been even more years since her last sleep study will get HSAT to confirm dx. Goal will then to place patient back on AutoPAP unless severity of ZEYNEP significantly worse than before or significant O2 desaturations. In such case, will encourage an in lab PAP titration to determine appropriate PAP setting to normalize AHI. Discussed with patient: the physiology of OSAS, medical conditions associated with OSAS (DM, HTN, CAD, Depression, Stroke, Headache...) and treatment options (UPPP, Dental appliances, CPAP...). Advised patient to avoid activities that could harm self or others when tired/sleepy, including driving and/or operating heavy machinery. Encouraged weight loss, and continued compliance with other medications. Discussed importance of good sleep hygiene and encouraged pt to avoid naps during the day and thus, consolidate sleep at night. Also encouraged patient to increase sleep times on weekdays and not attempt to compensate for decreased sleep efficiency during weekdays, by sleeping in on weekends.. Pt agrees with plan. Jefry Bertrand MD I spent a total of 35 minutes on the date of the service which included preparing to see the patient, [id number] patient care, completing clinical documentation, obtaining and/or reviewing separately obtained history, performing a medically appropriate examination, counseling and educating the patient/family/caregiver, ordering medications, tests, or procedures, communicating with other HCPs (not separately reported) and communicating results to the patient/family/caregiver. documented in this encounter [facility] 03-23-2022 Miscellaneous Notes We have yet to see the patient in office. Jefry Bertrand MD Called and spoke to Abena with [employer] and she stated that the pt has a [employer] machine and they will need the physical machine to download reports. Pt received her machine 12/08/13 and is eligible for a new machine where it can transmit automatically. Forwarding to provider so that he is aware prior to appt, please advise if there is anything else that I can do. Fortino Parekh CMA Second attempt to reach [facility], on hold for 10+ minutes will try again later. Spoke to Mary with [employer] regarding pt's 30 day CPAP compliance report, awaiting fax. Fortino Parekh CMA documented in this encounter [facility] 03-23-2022 Nurse Note Patient passing flatus at intervals. Patient denies pain or discomfort. Sitting in bed partaking of post-procedure snack. Roselyn Miranda RN Arrived in phase II via cart. Left lateral position. Sedated, but responds to verbal stimuli. Color normal; skin warm and dry. Respirations wnl and unlabored. Abdomen soft and with + bowel sounds in quads X 4. Patient resting comfortably. Dr. Dupree at bedside to review procedure and recommendations. Roselyn Miranda RN documented in this encounter [facility] 03-23-2022 History and physical note NEW VIRTUAL VISIT I had a virtual visit with Ms. Villegas today for evaluation of colon cancer screening. Ms. Villegas has a past medical history of anxiety, arthritis, hypercholesteremia, HTN, ZEYNEP. To walk much colonoscopy History : 09/04/2013 3 small polyps were found : Entire examined colon was normal no specimens were collected repeat colonoscopy 5 years for surveillance recommended HISTORY: The patient denies change in bowel habits,denies black stool, rectal bleeding or abdominal pain. Having a bowel movement daily and denies constipation Lactose seem to bother her little As she is getting older and reports she just will take lactacid if she is going to eat Ice Cream. PAST MEDICAL HISTORY PAST MEDICAL HISTORY Diagnosis Date Anxiety Arthritis Hypercholesteraemia Hypertension ZEYNEP (obstructive sleep apnea) 11/15/2013 [facility] for AutoPAP Overweight(278.02) Post-menopausal PAST SURGICAL HISTORY PAST SURGICAL HISTORY Procedure Laterality Date [facility] Colonoscopy- 3 small polyps COLONOSCOPY N/A 11/09/2016 HYSTEROSCOPY 09/27/2018 Dr. Oh Irizarry; W/ D&C and endometrial polypectomy PAST SURGICAL HISTORY OF 09/2018 Kidney stones removed FAMILY HISTORY FAMILY HISTORY Problem Relation Age of Onset Arthritis Mother Hypertension Mother Hypertension Father Heart Father Cancer Father melanoma Lipids Father Hypertension Maternal Grandmother Cancer Maternal Grandmother uterine Hypertension Maternal Grandfather Hypertension Paternal Grandmother Osteoporosis Paternal Grandmother Breast Cancer Paternal Grandmother Osteoporosis Paternal Grandfather SOCIAL HISTORY Social History Tobacco Use Smoking status: Never Smoker Smokeless tobacco: Never Used Substance Use Topics Alcohol use: Yes Comment: occasionally Drug use: No CURRENT MEDICATIONS Current Outpatient Medications Medication Sig Dispense Refill amLODIPine (NORVASC) 5 mg tablet TAKE 1 TABLET DAILY WITH BREAKFAST 90 tablet 3 FLUoxetine (PROZAC) 20 mg capsule Take 1 capsule by mouth once daily. 90 capsule 3 hydroCHLOROthiazide (HYDRODIURIL, ESIDRIX) 25 mg tablet TAKE 1 TABLET DAILY 90 tablet 3 cyanocobalamin 1,000 mcg/mL Inject 1 mL intramuscularly once every month. 3 mL 3 celecoxib (CELEBREX) 200 mg capsule Take 1 capsule by mouth once daily. 90 capsule 3 Cholecalciferol, Vitamin D3, 125 mcg (5,000 unit) cap Take 1 capsule by mouth once daily. 90 capsule 3 metoprolol succinate ER (TOPROL XL) 100 mg Take 1 tablet by mouth once daily. 90 tablet 3 amitriptyline (ELAVIL) 10 mg tablet Take 1 tablet by mouth daily at bedtime. 90 tablet 1 tiZANidine HCl 2 mg capsule Take 1 capsule by mouth three times daily as needed. 30 capsule 1 Syringe with Needle, Safety 3 mL 23 gauge x 1 1 Each once every month. With B-12 injections 12 Each 0 CPAP Mask refitting when eligible, suitable mask per pt preference, chin strap, head gear, humidity, tubing, lifetime supplies. G47.33 Obstructive Sleep Apnea 1 Device 0 CPAP 1 Device daily at bedtime. Auto PAP with Settings 10-20 cm H2O, suitable mask per pt preference, chin strap, head gear, humidity, tubing, lifetime supplies. G47.33 Obstructive Sleep Apnea. Current machine broken beyond repair. 1 Device 0 CPAP AutoPAP 10-20 cmH2O, suitable mask, humidity, filters, chin strap. Lifetime supplies. Dx: 327.23. compliance rpt to Dr. Miller in 6 wks. 1 Device 0 Current Facility-Administered Medications Medication Dose Route Frequency Provider Last Rate Last Admin cyanocobalamin 1,000 mcg injection 1,000 mcg INTRAMUSCULAR q 4 WEEKS Ted Monroe DO 1,000 mcg at 07/08/21 1108 ALLERGIES ALLERGIES No Known Allergies PHYSICAL FINDINGS OF NOTE: General Normal, healthy, cooperative, in no acute distress Able to interact verbally by video conference Psych ORIENTATION: normal to time place, person and situation Mood/Affect: AFFECT AND MOOD: Normal Head/Neuro Normal size and shape Facial appearance normal Pulmonary respiratory effort normal Abdominal Not performed Skin abnormal lesions not visualized Motor patient seen sitting with Normal appearing strength and coordination IMPRESSION No diagnosis found. RECOMMENDATION: Assessment/Plan (Z12.11) Screening for colon cancer 1. Screening for colon cancer - CONSULT TO GASTROENTEROLOGY - peg 3350-Electrolytes (GOLYTELY) 236-22.74-6.74 -5.86 gram suspension; Refer to printed prep instructions from your provider. Dispense: 4000 mL; Refill: 0 - COLONOSCOPY SCREENING; Future Follow up in office 3 months/PRN. Recommended to please call office/go to ER if fever, chills, chest pain, SOB, diarrhea, nausea, emesis, worsening abdominal pain, dehydration occurs I spent 30 minutes in the visit, with more than 50% of the total [id number]-iv-[id number] time of the visit in counseling / coordination of care. I have confirmed and edited as necessary, the PFSH and ROS obtained by others. Beth Maguire APRN.SAFETY SPEC UPDATED HISTORY AND PHYSICAL EXAMINATION SERVICE DATE: 03/23/2022 SERVICE TIME: 10:41 AM PHYSICAL EXAM MUST BE COMPLETED ON ADMISSION The History and Physical (completed in the past 30 days) has been reviewed and the patient has been examined. The contents accurately reflect the patient's condition with the following additions or revisions since the H&P was completed. Examination indicates no changes. This H&P can be found in the attached. SIGNATURE: Corwin Dupree III, MD PATIENT NAME: Ramona Villegas DATE: March 23, 2022 TIME: 10:41 AM documented in this encounter [facility] 03-23-2022 Miscellaneous Notes NEW VIRTUAL VISIT I had a virtual visit with Ms. Villegas today for evaluation of colon cancer screening. Ms. Villegas has a past medical history of anxiety, arthritis, hypercholesteremia, HTN, ZEYNEP. To walk much colonoscopy History : 09/04/2013 3 small polyps were found : Entire examined colon was normal no specimens were collected repeat colonoscopy 5 years for surveillance recommended HISTORY: The patient denies change in bowel habits,denies black stool, rectal bleeding or abdominal pain. Having a bowel movement daily and denies constipation Lactose seem to bother her little As she is getting older and reports she just will take lactacid if she is going to eat Ice Cream. PAST MEDICAL HISTORY PAST MEDICAL HISTORY Diagnosis Date Anxiety Arthritis Hypercholesteraemia Hypertension ZEYNEP (obstructive sleep apnea) 11/15/2013 [facility] for AutoPAP Overweight(278.02) Post-menopausal PAST SURGICAL HISTORY PAST SURGICAL HISTORY Procedure Laterality Date COLONOSCOP W/ OR W/O [facility] SPEC 09/04/2013 Colonoscopy- 3 small polyps COLONOSCOPY N/A 11/09/2016 HYSTEROSCOPY 09/27/2018 Dr. Oh Irizarry; W/ D&C and endometrial polypectomy PAST SURGICAL HISTORY OF 09/2018 Kidney stones removed FAMILY HISTORY FAMILY HISTORY Problem Relation Age of Onset Arthritis Mother Hypertension Mother Hypertension Father Heart Father Cancer Father melanoma Lipids Father Hypertension Maternal Grandmother Cancer Maternal Grandmother uterine Hypertension Maternal Grandfather Hypertension Paternal Grandmother Osteoporosis Paternal Grandmother Breast Cancer Paternal Grandmother Osteoporosis Paternal Grandfather SOCIAL HISTORY Social History Tobacco Use Smoking status: Never Smoker Smokeless tobacco: Never Used Substance Use Topics Alcohol use: Yes Comment: occasionally Drug use: No CURRENT MEDICATIONS Current Outpatient Medications Medication Sig Dispense Refill amLODIPine (NORVASC) 5 mg tablet TAKE 1 TABLET DAILY WITH BREAKFAST 90 tablet 3 FLUoxetine (PROZAC) 20 mg capsule Take 1 capsule by mouth once daily. 90 capsule 3 hydroCHLOROthiazide (HYDRODIURIL, ESIDRIX) 25 mg tablet TAKE 1 TABLET DAILY 90 tablet 3 cyanocobalamin 1,000 mcg/mL Inject 1 mL intramuscularly once every month. 3 mL 3 celecoxib (CELEBREX) 200 mg capsule Take 1 capsule by mouth once daily. 90 capsule 3 Cholecalciferol, Vitamin D3, 125 mcg (5,000 unit) cap Take 1 capsule by mouth once daily. 90 capsule 3 metoprolol succinate ER (TOPROL XL) 100 mg Take 1 tablet by mouth once daily. 90 tablet 3 amitriptyline (ELAVIL) 10 mg tablet Take 1 tablet by mouth daily at bedtime. 90 tablet 1 tiZANidine HCl 2 mg capsule Take 1 capsule by mouth three times daily as needed. 30 capsule 1 Syringe with Needle, Safety 3 mL 23 gauge x 1 1 Each once every month. With B-12 injections 12 Each 0 CPAP Mask refitting when eligible, suitable mask per pt preference, chin strap, head gear, humidity, tubing, lifetime supplies. G47.33 Obstructive Sleep Apnea 1 Device 0 CPAP 1 Device daily at bedtime. Auto PAP with Settings 10-20 cm H2O, suitable mask per pt preference, chin strap, head gear, humidity, tubing, lifetime supplies. G47.33 Obstructive Sleep Apnea. Current machine broken beyond repair. 1 Device 0 CPAP AutoPAP 10-20 cmH2O, suitable mask, humidity, filters, chin strap. Lifetime supplies. Dx: 327.23. compliance rpt to Dr. Miller in 6 wks. 1 Device 0 Current Facility-Administered Medications Medication Dose Route Frequency Provider Last Rate Last Admin cyanocobalamin 1,000 mcg injection 1,000 mcg INTRAMUSCULAR q 4 WEEKS Ted Monroe, DO 1,000 mcg at 07/08/21 1108 ALLERGIES ALLERGIES No Known Allergies PHYSICAL FINDINGS OF NOTE: General Normal, healthy, cooperative, in no acute distress Able to interact verbally by video conference Psych ORIENTATION: normal to time place, person and situation Mood/Affect: AFFECT AND MOOD: Normal Head/Neuro Normal size and shape Facial appearance normal Pulmonary respiratory effort normal Abdominal Not performed Skin abnormal lesions not visualized Motor patient seen sitting with Normal appearing strength and coordination IMPRESSION No diagnosis found. RECOMMENDATION: Assessment/Plan (Z12.11) Screening for colon cancer 1. Screening for colon cancer - CONSULT TO GASTROENTEROLOGY - peg 3350-Electrolytes (GOLYTELY) 236-22.74-6.74 -5.86 gram suspension; Refer to printed prep instructions from your provider. Dispense: 4000 mL; Refill: 0 - COLONOSCOPY SCREENING; Future Follow up in office 3 months/PRN. Recommended to please call office/go to ER if fever, chills, chest pain, SOB, diarrhea, nausea, emesis, worsening abdominal pain, dehydration occurs I spent 30 minutes in the visit, with more than 50% of the total aifq-vc-dheu time of the visit in counseling / coordination of care. I have confirmed and edited as necessary, the PFSH and ROS obtained by others. Beth Maguire APRN.SAFETY SPEC UPDATED HISTORY AND PHYSICAL EXAMINATION SERVICE DATE: 03/23/2022 SERVICE TIME: 10:40 AM PHYSICAL EXAM MUST BE COMPLETED ON ADMISSION The History and Physical (completed in the past 30 days) has been reviewed and the patient has been examined. The contents accurately reflect the patient's condition with the following additions or revisions since the H&P was completed. Examination indicates no changes. This H&P can be found in the attached. SIGNATURE: Corwin Dupree III, MD PATIENT NAME: Ramona Villegas DATE: March 23, 2022 TIME: 10:40 AM documented in this encounter [facility] 02-13-2022 Miscellaneous Notes Patient is scheduled at [facility] on 03/23/[address] Dupree for a colonoscopy. DX: Screening for colon cancer [Z12.11 (ICD-10-CM)] Verbal and written instructions given. documented in this encounter [facility] 02-11-2022 History of Present illness Narrative NEW VIRTUAL VISIT I had a virtual visit with Ms. Villegas today for evaluation of colon cancer screening. Ms. Villegas has a past medical history of anxiety, arthritis, hypercholesteremia, HTN, ZEYNEP. To walk much colonoscopy History : 09/04/2013 3 small polyps were found : Entire examined colon was normal no specimens were collected repeat colonoscopy 5 years for surveillance recommended HISTORY: The patient denies change in bowel habits,denies black stool, rectal bleeding or abdominal pain. Having a bowel movement daily and denies constipation Lactose seem to bother her little As she is getting older and reports she just will take lactacid if she is going to eat Ice Cream. PAST MEDICAL HISTORY Diagnosis Date Anxiety Arthritis Hypercholesteraemia Hypertension ZEYNEP (obstructive sleep apnea) 11/15/2013 [facility] [employer] for AutoPAP Overweight(278.02) Post-menopausal PAST SURGICAL HISTORY Procedure Laterality Date COLONOSCOP W/ OR W/O [facility] SPEC 09/04/2013 Colonoscopy- 3 small polyps COLONOSCOPY N/A 11/09/2016 HYSTEROSCOPY 09/27/2018 Dr. Oh Irizarry; W/ D&C and endometrial polypectomy PAST SURGICAL HISTORY OF 09/2018 Kidney stones removed FAMILY HISTORY Problem Relation Age of Onset Arthritis Mother Hypertension Mother Hypertension Father Heart Father Cancer Father melanoma Lipids Father Hypertension Maternal Grandmother Cancer Maternal Grandmother uterine Hypertension Maternal Grandfather Hypertension Paternal Grandmother Osteoporosis Paternal Grandmother Breast Cancer Paternal Grandmother Osteoporosis Paternal Grandfather Social History Tobacco Use Smoking status: Never Smoker Smokeless tobacco: Never Used Substance Use Topics Alcohol use: Yes Comment: occasionally Drug use: No Current Outpatient Medications Medication Sig Dispense Refill amLODIPine (NORVASC) 5 mg tablet TAKE 1 TABLET DAILY WITH BREAKFAST 90 tablet 3 FLUoxetine (PROZAC) 20 mg capsule Take 1 capsule by mouth once daily. 90 capsule 3 hydroCHLOROthiazide (HYDRODIURIL, ESIDRIX) 25 mg tablet TAKE 1 TABLET DAILY 90 tablet 3 cyanocobalamin 1,000 mcg/mL Inject 1 mL intramuscularly once every month. 3 mL 3 celecoxib (CELEBREX) 200 mg capsule Take 1 capsule by mouth once daily. 90 capsule 3 Cholecalciferol, Vitamin D3, 125 mcg (5,000 unit) cap Take 1 capsule by mouth once daily. 90 capsule 3 metoprolol succinate ER (TOPROL XL) 100 mg Take 1 tablet by mouth once daily. 90 tablet 3 amitriptyline (ELAVIL) 10 mg tablet Take 1 tablet by mouth daily at bedtime. 90 tablet 1 tiZANidine HCl 2 mg capsule Take 1 capsule by mouth three times daily as needed. 30 capsule 1 Syringe with Needle, Safety 3 mL 23 gauge x 1 1 Each once every month. With B-12 injections 12 Each 0 CPAP Mask refitting when eligible, suitable mask per pt preference, chin strap, head gear, humidity, tubing, lifetime supplies. G47.33 Obstructive Sleep Apnea 1 Device 0 CPAP 1 Device daily at bedtime. Auto PAP with Settings 10-20 cm H2O, suitable mask per pt preference, chin strap, head gear, humidity, tubing, lifetime supplies. G47.33 Obstructive Sleep Apnea. Current machine broken beyond repair. 1 Device 0 CPAP AutoPAP 10-20 cmH2O, suitable mask, humidity, filters, chin strap. Lifetime supplies. Dx: 327.23. compliance rpt to Dr. Miller in 6 wks. 1 Device 0 Current Facility-Administered Medications Medication Dose Route Frequency Provider Last Rate Last Admin cyanocobalamin 1,000 mcg injection 1,000 mcg INTRAMUSCULAR q 4 WEEKS Ted Monroe DO 1,000 mcg at 07/08/21 1108 ALLERGIES No Known Allergies PHYSICAL FINDINGS OF NOTE: General Normal, healthy, cooperative, in no acute distress Able to interact verbally by video conference Psych ORIENTATION: normal to time place, person and situation Mood/Affect: AFFECT AND MOOD: Normal Head/Neuro Normal size and shape Facial appearance normal Pulmonary respiratory effort normal Abdominal Not performed Skin abnormal lesions not visualized Motor patient seen sitting with Normal appearing strength and coordination IMPRESSION No diagnosis found. RECOMMENDATION: Assessment/Plan (Z12.11) Screening for colon cancer 1. Screening for colon cancer - CONSULT TO GASTROENTEROLOGY - peg 3350-Electrolytes (GOLYTELY) 236-22.74-6.74 -5.86 gram suspension; Refer to printed prep instructions from your provider. Dispense: 4000 mL; Refill: 0 - COLONOSCOPY SCREENING; Future Follow up in office 3 months/PRN. Recommended to please call office/go to ER if fever, chills, chest pain, SOB, diarrhea, nausea, emesis, worsening abdominal pain, dehydration occurs I spent 30 minutes in the visit, with more than 50% of the total [id number] time of the visit in counseling / coordination of care. I have confirmed and edited as necessary, the PFSH and ROS obtained by others. Beth Maguire APRN.CNP February 11, 2022 11:21 AM documented in this encounter [facility] 02-11-2022 Instructions Beth Maguire APRN.CNP - 02/11/2022 10:58 AM EDT Images from the original note were not included. Bowel Preparation Instructions for: Golytely, Nulytely, Trilyte or Colyte (polyethylene glycol 3350 and electrolytes) IF YOU DO NOT FOLLOW THESE DIRECTIONS, YOUR COLONOSCOPY WILL BE CANCELLED. [place] Instructions: Your bowel must be empty so that your doctor can clearly view your colon. Follow all of the instructions in this handout EXACTLY as they are written. Do NOT eat any solid food the ENTIRE day before your colonoscopy. Drink only clear liquids. Buy your bowel preparation at least 5 days before your colonoscopy. TRANSPORTATION on the Day of Your Exam A responsible person MUST be present with you at Check In prior to your colonoscopy and REMAIN in the endoscopy area until you are discharged. You are NOT ALLOWED to drive, take a taxi or bus, or leave the Endoscopy Center ALONE. If you do not have a responsible haul truck driver (family member or friend) with you to take you home, your exam cannot be done with sedation and will be cancelled. Please bring a list of all of your current medications, including any Over-the Counter medications with you. Medications If you take insulin, diabetic medications or blood thinners such as Coumadin (warfarin), Plavix (clopidogrel), Ticlid (ticlopidine hydrochloride), Agrylin (anagrelide), Xarelto (Rivaroxaban), Pradaxa (Dabigatran), Eliquis (Apixaban), and Effient (Prasugrel). You MUST call the doctors who orders those medicines for instructions on altering the dosage before your colonoscopy. All other medications should be taken the day of the exam with a sip of water including ASPIRIN. Five (5) Days Before Your Colonoscopy Do NOT take medicines that stop diarrhea - such as Imodium, Kaopectate, or Pepto Bismol. Do NOT take fiber supplements - such as Metamucil, Citrucel, or Perdiem. Do NOT take products that contain iron - such as multi-vitamins (the label lists what is in the products). Do NOT take Vitamin E. Buy the prescription bowel preparation solution at your local pharmacy or drugstore pharmacy. 09/2019 Bowel Preparation Instructions for: Golytely, Nulytely, Trilyte or Colyte (polyethylene glycol 3350 and electrolytes) Three (3) Days Before Your Colonoscopy Do NOT eat high-fiber foods - such as popcorn, beans, seeds (flax, sunflower, quinoa), multigrain bread, nuts, salad/vegetables, or fresh and dried fruit. One (1) Day Before Your Colonoscopy Only drink clear liquids the ENTIRE DAY before your colonoscopy. Do NOT eat any solid foods. Drink at least 8 ounces of clear liquids every hour after waking up. The clear liquids you can drink include: Clear Liquid (NO RED LIQUIDS) DO NOT DRINK Gatorade, Pedialyte or Powerade Clear broth or bouillon Coffee or tea (no milk or non-dairy creamer) Carbonated and non-carbonated soft drinks Chip-Aid or other fruit flavored drinks Strained fruit juices (no pulp) Jell-O, popsicles, hard candy Water Alcohol Milk or non-dairy creamers Noodles or vegetables in soup Juice with pulp Liquid you cannot see through The bowel preparation solution will be consumed in two parts. Mix the solution the evening before your colonoscopy and refrigerate before drinking. You may add the flavor pack that came with the bowel preparation. Do NOT add ice, sugar or any other flavorings to the solution. Part 1 At 6:00 PM - Evening before your colonoscopy Drink an 8-oz glass of bowel preparation every 10 minutes for a total of 8 glasses. You may continue to drink clear liquids until midnight. Part 2 On the day of your colonoscopy you may drink clear liquids up to (three) 3 hours before your procedure. 4 1/2 hours before your colonoscopy Drink an 8-oz glass of bowel preparation every 10 minutes for a total of 8 glasses. Fifteen (15) minutes later, drink an 8-oz glass of clear liquids every 15 minutes for a total of 2 glasses. You may continue to drink clear liquids up to (three) 3 hours before your exam. 3 09/2019 documented in this encounter [facility] Screening for colon cancer Special screening for malignant neoplasms, colon [facility] Diagnosis ZEYNEP (obstructive sleep apnea)- Primary Obstructive sleep apnea (adult) (pediatric) Sleep deprivation Problems related to lack of adequate sleep Behaviorally induced insufficient sleep syndrome Persistent disorder of initiating or maintaining wakefulness [facility] Diagnosis Vitamin B 12 deficiency Other B-complex deficiencies [facility] Diagnosis Essential hypertension Unspecified essential hypertension Vitamin D deficiency Unspecified vitamin D deficiency [facility] Diagnosis Vitamin B 12 deficiency Other B-complex deficiencies [facility] Diagnosis Vitamin D deficiency- Primary Unspecified vitamin D deficiency Essential hypertension Unspecified essential hypertension Wellness examination [facility] Diagnosis ZEYNEP (obstructive sleep apnea)- Primary Obstructive sleep apnea (adult) (pediatric) [facility] Diagnosis Anxiety Anxiety state, unspecified [facility] Diagnosis Obstructive sleep apnea (adult) (pediatric)- Primary [facility] Diagnosis Vitamin B 12 deficiency Other B-complex deficiencies [facility] Diagnosis ZEYNEP (obstructive sleep apnea)- Primary Obstructive sleep apnea (adult) (pediatric) [facility] Diagnosis Vitamin B 12 deficiency Other B-complex deficiencies [facility] Diagnosis Essential hypertension Unspecified essential hypertension [facility] Diagnosis Hyperlipidemia, mixed Mixed hyperlipidemia [facility] Diagnosis Encounter for screening mammogram for malignant neoplasm of breast- Primary Other screening mammogram [facility] Diagnosis Hyperlipidemia, mixed Mixed hyperlipidemia [facility] Diagnosis Essential hypertension Unspecified essential hypertension [facility] Diagnosis Abnormal mammogram- Primary Abnormal mammogram, unspecified Mammographic microcalcification found on diagnostic imaging of breast Mammographic microcalcification documented in this encounter [facility] note* Diagnosis Abnormal finding on radiological examination of breast- Primary Other (abnormal) findings on radiological examination of breast [facility] Diagnosis Abnormal mammogram Abnormal mammogram, unspecified [facility]* Diagnosis Abnormality of both breasts on screening mammogram [facility]* Diagnosis Abnormality of both breasts on screening mammogram [facility]* Diagnosis Encounter for screening mammogram for malignant neoplasm of breast Other screening mammogram [facility] Diagnosis Malignant neoplasm of upper-outer quadrant of left breast in female, estrogen receptor positive (HCC)- Primary [facility]* Diagnosis Invasive ductal carcinoma of breast, female, left (HCC)- Primary [facility]* Diagnosis Malignant neoplasm of upper-outer quadrant of left breast in female, estrogen receptor positive (HCC)- Primary Abnormal mammogram with microcalcification Mammographic microcalcification At risk for lymphedema Other specified conditions influencing health status [facility]* Diagnosis Hyperlipidemia, mixed Mixed hyperlipidemia [facility]* Diagnosis Invasive ductal carcinoma of breast, female, left (HCC) [facility]* Diagnosis Breast disorder- Primary Unspecified breast disorder [facility] Diagnosis Breast disorder- Primary Unspecified breast disorder [facility]* Diagnosis Malignant neoplasm of upper-outer quadrant of left breast in female, estrogen receptor positive (HCC)- Primary [facility]* Diagnosis Malignant neoplasm of upper-outer quadrant of left breast in female, estrogen receptor positive (HCC)- Primary Malignant neoplasm of upper-outer quadrant of left breast in female, estrogen receptor positive (HCC) [facility] Pre-operative examination- Primary Preoperative examination, unspecified Anxiety Anxiety state, unspecified Chronic mixed headache syndrome Other headache syndromes Essential hypertension Unspecified essential hypertension Hypercholesterolemia Pure hypercholesterolemia ZEYNEP (obstructive sleep apnea) Obstructive sleep apnea (adult) (pediatric) Osteoarthritis of cervical spine with myelopathy Elevated serum creatinine Other nonspecific findings on examination of blood Elevated fasting glucose Impaired fasting glucose Fatigue, unspecified type Class 3 severe obesity due to excess calories with serious comorbidity and body mass index (BMI) of 45.0 to 49.9 in adult (HCC) Malignant neoplasm of upper-outer quadrant of left breast in female, estrogen receptor positive (HCC) [facility] Diagnosis Malignant neoplasm of upper-outer quadrant of left breast in female, estrogen receptor positive (HCC) Abnormal mammogram with microcalcification Mammographic microcalcification Malignant neoplasm of upper-outer quadrant of left breast in female, estrogen receptor positive (HCC) [facility] Diagnosis Malignant neoplasm of upper-outer quadrant of left breast in female, estrogen receptor positive (HCC) (HCC)- Primary Malignant neoplasm of upper-outer quadrant of left breast in female, estrogen receptor positive (HCC) (HCC) documented in this encounter [facility] for referral (narrative)* Outpatient Procedure (Routine) - Pending Review Specialty Diagnoses / Procedures Referred By Laila bermudez Referred To Contact [facility] Diagnoses Screening for colon cancer Procedures COLONOSCOPY SCREENING COLONOSCOPY FLX DX W/COLLJ SPEC WHEN Beth Gonzalez APRN.CNP [address] [place] [id number] [facility] [address] [place] [address] Referral ID Status Reason Start Date Expiration Date Visits Requested Visits Authorized [id number] Pending Review Auto-Generat ed Referral 02/11/2022 02/11/2023 1 1 [facility] for referral (narrative)* Outpatient Procedure (Routine) - Closed Specialty Diagnoses / Procedures Referred By Contac t Referred To Contact [facility] Diagnoses Screening for colon cancer Procedures COLONOSCOPY SCREENING COLONOSCOPY SCREENING COLONOSCOPY FLX DX W/COLLJ SPEC WHEN Beth Gonzalez APRN.SAFETY SPEC [address] [place] [address] [facility] [address] [place] [address] Referral ID Status Reason Start Date Expiration Date V isits Requested Visits Authorized [id number] Closed Auto-Generate d Referral OON/Self Pay Override 02/11/2022 02/11/2023 1 1 [facility] for referral (narrative)* Diagnostic Procedure Only (Routine) - Authorized Specialty Diagnoses / Procedures Referred By Contac t Referred To Contact [facility] Diagnoses ZEYNEP (obstructive sleep apnea) Procedures HOME SLEEP APNEA TEST (HSAT) SLEEP STD AIRFLOW HRT RATE&O2 SAT EFFORT Jefry Figueroa Jr., MD [address] [place] [phone] [facility] [address] [place] [id number] Referral ID Status Reason Start Date Expiration Date Visits Requested Visits Authorized [id number] Authorized Auto-Generat ed Referral 10/11/2021 10/10/2022 1 1 T [facility] for referral (narrative)* Diagnostic Procedure Only (Routine) - Pending Review Specialty Diagnoses / Procedures Referred By Contac t Referred To Contact [facility] Diagnoses ZEYNEP (obstructive sleep apnea) Procedures HOME SLEEP APNEA TEST (HSAT) SLEEP STD AIRFLOW HRT RATE&O2 SAT EFFORT Jefry Figueroa Jr., MD [address] [place] [address] [facility] [address] [place] [address] Referral ID Status Reason Start Date Expiration Date Visits Requested Visits Authorized [id number] Pending Review Auto-Generat ed Referral 10/19/2022 10/19/2023 1 1 [facility] for referral (narrative)* Diagnostic Procedure Only (Routine) - Pending Review Specialty Diagnoses / Procedures Referred By Laila bermudez Referred To Contact [facility] Diagnoses Encounter for screening mammogram for malignant neoplasm of breast Procedures DANILO SCREENING SCREENING MAMMOGRAPHY BI 2-VIEW BREAST INC CAD Stanley Prescott PA-C [address] [place] [address] [facility] [address] [place] [address] Referral ID Status Reason Start Date Expiration Date Visits Requested Visits Authorized [id number] Pending Review Auto-Generat ed Referral 05/25/2023 06/22/2024 1 1 [facility] for referral (narrative)* Diagnostic Procedure Only (Routine) - Pending Review Specialty Diagnoses / Procedures Referred By Laila bermudez Referred To Contact [facility] Diagnoses Mammographic microcalcification found on diagnostic imaging of breast Procedures DANILO STEREO BX BREAST RIGHT BX BREAST W/DEVICE 1ST [facility]ES[facility] STEREOTACTIC GUID Corwin Dupree MD [address] [place] [address] [facility] [address] [place] [address] Referral ID Status Reason Start Date Expiration Date Visits Requested Visits Authorized [id number] Pending Review Auto-Generat ed Referral 08/11/2023 09/09/2024 1 1 * Diagnostic Procedure Only (Routine) - Closed Specialty Diagnoses / Procedures Referred By Laila bermudez Referred To Contact [facility] Diagnoses Abnormal mammogram Procedures DANILO DIAGNOSTIC LEFT DIAGNOSTIC MAMMOGRAPHY COMPUTER-AIDED DETCJ UNI Corwin Dupree MD [address] [place] [address] [facility] [address] [place] [address] Referral ID Status Reason Start Date Expiration Date V isits Requested Visits Authorized [id number] Closed Auto-Generate d Referral 08/11/2023 10/10/2023 1 1 [facility] for referral (narrative)* Diagnostic Procedure Only (Routine) - Pending Review Specialty Diagnoses / Procedures Referred By Contac t Referred To Contact [facility] Diagnoses Abnormal finding on radiological examination of breast Procedures DANILO STEREO BX BREAST RIGHT BX BREAST W/DEVICE 1ST [facility] STEREOTACTIC Jm Duff MD [address] [place] [address] [facility] [address] [place] [phone] Referral ID Status Reason Start Date Expiration Date Visits Requested Visits Authorized [id number] Pending Review Auto-Generat ed Referral 08/13/2023 09/11/2024 1 1 [facility] for referral (narrative)* Diagnostic Procedure Only (Routine) - Closed Specialty Diagnoses / Procedures Referred By Contac t Referred To Contact [facility] Diagnoses Abnormal mammogram Procedures DANILO DIAGNOSTIC LEFT DIAGNOSTIC MAMMOGRAPHY COMPUTER-AIDED DETCJ UNI Corwin Dupree MD [address] [place] [address] [facility] [address] [place] [phone] Referral ID Status Reason Start Date Expiration Date V isits Requested Visits Authorized [id number] Closed Auto-Generate d Referral 08/11/2023 10/10/2023 1 1 [facility] for referral (narrative)* Diagnostic Procedure Only (Routine) - Closed Specialty Diagnoses / Procedures Referred By Laila t Referred To Contact [facility] Diagnoses Abnormality of both breasts on screening mammogram Procedures US BREAST LTD LEFT US BREAST UNI REAL TIME WITH IMAGE LIMITED Ted Monroe, [address] [place] [address] [facility] [address] [place] [address] Referral ID Status Reason Start Date Expiration Date V isits Requested Visits Authorized [id number] Closed Auto-Generate d Referral 08/03/2023 10/10/2023 1 1 [facility] for referral (narrative)* Diagnostic Procedure Only (Routine) - Closed Specialty Diagnoses / Procedures Referred By Laila t Referred To Contact [facility] Diagnoses Encounter for screening mammogram for malignant neoplasm of breast Procedures DANILO SCREENING SCREENING MAMMOGRAPHY BI 2-VIEW BREAST INC CAD Stanley Prescott PA-C [address] [place] [address] [facility] [address] [place] [phone] Referral ID Status Reason Start Date Expiration Date V isits Requested Visits Authorized [id number] Closed Auto-Generate d Referral 07/02/2023 10/10/2023 1 1 T [facility] for referral (narrative)* Diagnostic Procedure Only (Routine) - Closed Specialty Diagnoses / Procedures Referred By Laila bermudez Referred To Contact [facility] Diagnoses Breast disorder Procedures US BREAST LTD LEFT US BREAST UNI REAL TIME WITH IMAGE LIMITED Dianne Alvarenga MD [address] [place] [address] [facility] [address] [place] [address] Referral ID Status Reason Start Date Expiration Date Visits Re quested Visits Authorized [id number] Closed 09/16/2023 10/10/2023 [address] [facility] for visit Narrative* Outpatient Procedure (Routine) - Closed Specialty Diagnoses / Procedures Referred By Laila bermudez Referred To Contact [facility] Diagnoses Screening for colon cancer Procedures COLONOSCOPY SCREENING COLONOSCOPY SCREENING COLONOSCOPY FLX DX W/COLLJ SPEC WHEN PFRMD Beth Maguire, SHEELA.SAFETY SPEC [address] [place] [address] [facility] [address] [place] [address] Referral ID Status Reason Start Date Expiration Date V isits Requested Visits Authorized [id number] Closed Auto-Generate d Referral OON/Self Pay Override 02/11/2022 02/11/2023 1 1 [facility] for visit Narrative* Diagnostic Procedure Only (Routine) - Closed Specialty Diagnoses / Procedures Referred By Laila bermudez Referred To Contact Radiology / [facility] Diagnoses mammo scrreen order pend Procedures MAMMOGRAM SCREENING Ted Monroe [address] [place] [address] Radio Mammo [facility] [address] [place] [address] Referral ID Status Reason Start Date Expiration Date Visits Re quested Visits Authorized [id number] Closed 06/12/2022 08/11/2022 1 1 [facility] for visit Narrative* Diagnostic Procedure Only (Routine) - Closed Specialty Diagnoses / Procedures Referred By Laila bermudez Referred To Contact [facility] Diagnoses Abnormal mammogram Procedures DANILO DIAGNOSTIC LEFT DIAGNOSTIC MAMMOGRAPHY COMPUTER-AIDED DETCJ Corwin Nugent MD [address] [place] [address] [facility] [address] [place] [address] Referral ID Status Reason Start Date Expiration Date V isits Requested Visits Authorized [id number] Closed Auto-Generate d Referral 08/11/2023 10/10/2023 1 1 [facility] for visit Narrative* Diagnostic Procedure Only (Routine) - Closed Specialty Diagnoses / Procedures Referred By Laila bermudez Referred To Contact [facility] Diagnoses Abnormality of both breasts on screening mammogram Procedures DANILO DIAGNOSTIC BILATERAL DIAGNOSTIC MAMMOGRAPHY COMPUTER-AIDED DETCJ BI Ted Monroe L, DO [address] [place] [address] [facility] [address] [place] [address] Referral ID Status Reason Start Date Expiration Date V isits Requested Visits Authorized [id number] Closed Auto-Generate d Referral 08/03/2023 10/10/2023 1 1 [facility] Diagnostic Procedure Only (Routine) - Closed Specialty Diagnoses / Procedures Referred By Contsveta t Referred To Contact [facility] Diagnoses Encounter for screening mammogram for malignant neoplasm of breast Procedures DANILO SCREENING SCREENING MAMMOGRAPHY BI 2-VIEW BREAST INC Stanley Mauricio PA-C [address] [place] [address] [facility] [address] [place] [address] Referral ID Status Reason Start Date Expiration Date V isits Requested Visits Authorized [id number] Closed Auto-Generate d Referral 07/02/2023 10/10/2023 1 1 [facility] Advance Directives No Advanced Directives Records FoundDocuments on File Type Date Recorded Patient Media Marketing Specialist Expl anation Advance Directive(s) 07/02/2020 12:48 PM Advance Directive(s) 06/28/2020 12:21 PM Advance Directive(s) 11/09/2016 12:42 PM Documents on File Type Date Recorded Patient Media Marketing Specialist Expl anation Advance Directive(s) 03/23/2022 9:24 AM Advance Directive(s) 07/02/2020 12:48 PM Advance Directive(s) 06/28/2020 12:21 PM Advance Directive(s) 11/09/2016 12:42 PM Documents on File Type Date Recorded Patient Media Marketing Specialist Expl anation Advance Directive(s) 03/23/2022 9:24 AM Advance Directive(s) 07/02/2020 12:48 PM Advance Directive(s) 06/28/2020 12:21 PM Advance Directive(s) 11/09/2016 12:42 PM Medications Administered Section Inactive Administered Medications - up to 3 most recent administrations Medication Order MAR Action Action Date Dose Rate Site diphenhydrAMINE 12.5-50 mg injection (BENADRYL) 12.5-50 mg, INTRAVENOUS, DIRECTED, Starting on 03/23/22 at 1100, Until Wed03/23/22 at 1459, DOSING DIRECTED BY PHYSICIAN FOR PROCEDURAL SEDATION ONLY, Intraprocedure Given 03/23/2022 10:42 AM EDT 50 mg fentaNYL 50 mcg/mL 25-100 mcg injection (SUBLIMAZE) 25-100 mcg, INTRAVENOUS, DIRECTED, Starting on Wed03/23/22 at 1100, Until Wed03/23/22 at 1459, DOSING DIRECTED BY PHYSICIAN FOR PROCEDURAL SEDATION ONLY, Intraprocedure Given 03/23/2022 10:48 AM EDT 50 mcg Summary Purpose Family History No Family History Records FoundNo Family History Records FoundNo Family History Records FoundNo Family History Records Found Reason for Referral Specialty Diagnoses / Procedures [facility] Diagnoses Invasive ductal carcinoma of breast, female, left (HCC) Procedures MRI 3D POST PROCESSING 3D RENDERING W/INTERP&POSTPROC DIFF WORK STATION Maria Victoria Camilo PA-C [address] [place] [id number] [facility]95 Referral ID Status Reason Start Date Expiration Date Visits Requested Visits Authorized [id number] Pending Review Auto-Generat ed Referral 3 09/25/2024 1 1 Specialty Diagnoses / Procedures [facility] Diagnoses Invasive ductal carcinoma of breast, female, left (HCC) Procedures MRI BREAST WO/W IVCON BILATERAL MRI BREAST WITHOUT&WITH CONTRAST W/CAD BILATERAL Maria Victoria Camilo PA-C [address] [place] [phone] [facility] Referral ID Status Reason Start Date Expiration Date Visits Requested Visits Authorized [id number] Pending Review Auto-Generat ed Referral 3 09/25/2024 1 1 Specialty Diagnoses / Procedures [facility] To Contact Diagnoses Malignant neoplasm of upper-outer quadrant of left breast in female, estrogen receptor positive (HCC) Procedures CONSULT TO MEDICAL GENETICS - CANCER MEDICAL GENETICS COUNSELING EACH [address] [place] [address] [place] [phone] [facility] [place] [facility] [place] [phone] Referral ID Status Reason Start Date Expiration Date Visits Requested Visits Authorized [id number] Pending Review PCP Requested Referral Auto-Generate d Referral 3 09/03/2024 1 1 Specialty Diagnoses / Procedures Referred By Contac t Referred To Contact Radiation Oncology Diagnoses Malignant neoplasm of upper-outer quadrant of left breast in female, estrogen receptor positive (HCC) Abnormal mammogram with microcalcification Procedures RAD/ONC CONSULT OFFICE/OUTPATIENT [facility] 60-[place] [address] [place] [address] Referral ID Status Reason Start Date Expiration Date Visits Requested Visits Authorized [id number] Pending Review PCP Requested Referral 3 09/03/2024 1 1 Specialty Diagnoses / Procedures Referred By Contac t Referred To Contact Diagnoses Malignant neoplasm of upper-outer quadrant of left breast in female, estrogen receptor positive (HCC) Abnormal mammogram with microcalcification Procedures CONSULT TO HEMATOLOGY/ONCOLOGY OFFICE/OUTPATIENT [facility] 60-[place] [address] [place] [address] Referral ID Status Reason Start Date Expiration Date Visits Requested Visits Authorized [id number] Pending Review PCP Requested Referral 3 12/03/2023 1 1 Specialty Diagnoses / Procedures Referred By Contac t Referred To Contact [facility] Diagnoses Breast disorder Procedures MRI CLIP PLACEMENT BREAST LEFT PERQ BREAST LOC DEVICE PLACEMT 1ST [place] [address] Referral ID Status Reason Start Date Expiration Date Visits Requested Visits Authorized [id number] Pending Review Auto-Generat ed Referral 09/16/2023 10/15/2024 1 1 Specialty Diagnoses / Procedures Referred By Contac t Referred To Contact [facility] Diagnoses Breast disorder Procedures US BIOPSY BREAST LEFT BX BREAST W/DEVICE 1ST LESION ULTRASOUND Lashell Borjas MD [facility] [address] [place] [address] Referral ID Status Reason Start Date Expiration Date Visits Requested Visits Authorized [id number] Pending Review Auto-Generat ed Referral 09/16/2023 10/15/2024 1 1 Additional Source Comments Source Comments (unrecognize d section and content) In the event this informatio n is protected by the Federal Confidentiality of Alcohol and Drug Abuse Patient Records regulations: The Federal rules restrict any use of the information to criminally investigate or prosecute any alcohol or drug abuse patient.[facility] event this information is protected by the Federal Confidentiality of Alcohol and Drug Abuse Patient Records regulations: The Federal rules restrict any use of the information to criminally investigate or prosecute any alcohol or drug abuse patient.[facility] the event this information is protected by the Federal Confidentiality of Alcohol and Drug Abuse Patient Records regulations: The Federal rules restrict any use of the information to criminally investigate or prosecute any alcohol or drug abuse patient.[facility] the event this information is protected by the Federal Confidentiality of Alcohol and Drug Abuse Patient Records regulations: The Federal rules restrict any use of the information to criminally investigate or prosecute any alcohol or drug abuse patient.[facility] the event this information is protected by the Federal Confidentiality of Alcohol and Drug Abuse Patient Records regulations: The Federal rules restrict any use of the information to criminally investigate or prosecute any alcohol or drug abuse patient.[facility] the event this information is protected by the Federal Confidentiality of Alcohol and Drug Abuse Patient Records regulations: The Federal rules restrict any use of the information to criminally investigate or prosecute any alcohol or drug abuse patient.[facility] the event this information is protected by the Federal Confidentiality of Alcohol and Drug Abuse Patient Records regulations: The Federal rules restrict any use of the information to criminally investigate or prosecute any alcohol or drug abuse patient.[facility] the event this information is protected by the Federal Confidentiality of Alcohol and Drug Abuse Patient Records regulations: The Federal rules restrict any use of the information to criminally investigate or prosecute any alcohol or drug abuse patient.[facility] the event this information is protected by the Federal Confidentiality of Alcohol and Drug Abuse Patient Records regulations: The Federal rules restrict any use of the information to criminally investigate or prosecute any alcohol or drug abuse patient.[facility] the event this information is protected by the Federal Confidentiality of Alcohol and Drug Abuse Patient Records regulations: The Federal rules restrict any use of the information to criminally investigate or prosecute any alcohol or drug abuse patient.[facility] the event this information is protected by the Federal Confidentiality of Alcohol and Drug Abuse Patient Records regulations: The Federal rules restrict any use of the information to criminally investigate or prosecute any alcohol or drug abuse patient.[facility] the event this information is protected by the Federal Confidentiality of Alcohol and Drug Abuse Patient Records regulations: The Federal rules restrict any use of the information to criminally investigate or prosecute any alcohol or drug abuse patient.[facility] the event this information is protected by the Federal Confidentiality of Alcohol and Drug Abuse Patient Records regulations: The Federal rules restrict any use of the information to criminally investigate or prosecute any alcohol or drug abuse patient.[facility] the event this information is protected by the Federal Confidentiality of Alcohol and Drug Abuse Patient Records regulations: The Federal rules restrict any use of the information to criminally investigate or prosecute any alcohol or drug abuse patient.[facility] the event this information is protected by the Federal Confidentiality of Alcohol and Drug Abuse Patient Records regulations: The Federal rules restrict any use of the information to criminally investigate or prosecute any alcohol or drug abuse patient.[facility] the event this information is protected by the Federal Confidentiality of Alcohol and Drug Abuse Patient Records regulations: The Federal rules restrict any use of the information to criminally investigate or prosecute any alcohol or drug abuse patient.[facility] the event this information is protected by the Federal Confidentiality of Alcohol and Drug Abuse Patient Records regulations: The Federal rules restrict any use of the information to criminally investigate or prosecute any alcohol or drug abuse patient.[facility] HospitalIn the event this information is protected by the Federal Confidentiality of Alcohol and Drug Abuse Patient Records regulations: The Federal rules restrict any use of the information to criminally investigate or prosecute any alcohol or drug abuse patient.[facility] HospitalIn the event this information is protected by the Federal Confidentiality of Alcohol and Drug Abuse Patient Records regulations: The Federal rules restrict any use of the information to criminally investigate or prosecute any alcohol or drug abuse patient.[facility] HospitalIn the event this information is protected by the Federal Confidentiality of Alcohol and Drug Abuse Patient Records regulations: The Federal rules restrict any use of the information to criminally investigate or prosecute any alcohol or drug abuse patient.[facility] HospitalIn the event this information is protected by the Federal Confidentiality of Alcohol and Drug Abuse Patient Records regulations: The Federal rules restrict any use of the information to criminally investigate or prosecute any alcohol or drug abuse patient.[facility] HospitalIn the event this information is protected by the Federal Confidentiality of Alcohol and Drug Abuse Patient Records regulations: The Federal rules restrict any use of the information to criminally investigate or prosecute any alcohol or drug abuse patient.[facility] HospitalIn the event this information is protected by the Federal Confidentiality of Alcohol and Drug Abuse Patient Records regulations: The Federal rules restrict any use of the information to criminally investigate or prosecute any alcohol or drug abuse patient.[facility] HospitalIn the event this information is protected by the Federal Confidentiality of Alcohol and Drug Abuse Patient Records regulations: The Federal rules restrict any use of the information to criminally investigate or prosecute any alcohol or drug abuse patient.[facility] HospitalIn the event this information is protected by the Federal Confidentiality of Alcohol and Drug Abuse Patient Records regulations: The Federal rules restrict any use of the information to criminally investigate or prosecute any alcohol or drug abuse patient.[facility] HospitalIn the event this information is protected by the Federal Confidentiality of Alcohol and Drug Abuse Patient Records regulations: The Federal rules restrict any use of the information to criminally investigate or prosecute any alcohol or drug abuse patient.[facility] HospitalIn the event this information is protected by the Federal Confidentiality of Alcohol and Drug Abuse Patient Records regulations: The Federal rules restrict any use of the information to criminally investigate or prosecute any alcohol or drug abuse patient.[facility] HospitalIn the event this information is protected by the Federal Confidentiality of Alcohol and Drug Abuse Patient Records regulations: The Federal rules restrict any use of the information to criminally investigate or prosecute any alcohol or drug abuse patient.[facility] HospitalIn the event this information is protected by the Federal Confidentiality of Alcohol and Drug Abuse Patient Records regulations: The Federal rules restrict any use of the information to criminally investigate or prosecute any alcohol or drug abuse patient.[facility] HospitalIn the event this information is protected by the Federal Confidentiality of Alcohol and Drug Abuse Patient Records regulations: The Federal rules restrict any use of the information to criminally investigate or prosecute any alcohol or drug abuse patient.[facility] HospitalIn the event this information is protected by the Federal Confidentiality of Alcohol and Drug Abuse Patient Records regulations: The Federal rules restrict any use of the information to criminally investigate or prosecute any alcohol or drug abuse patient.[facility] HospitalIn the event this information is protected by the Federal Confidentiality of Alcohol and Drug Abuse Patient Records regulations: The Federal rules restrict any use of the information to criminally investigate or prosecute any alcohol or drug abuse patient.[facility] HospitalIn the event this information is protected by the Federal Confidentiality of Alcohol and Drug Abuse Patient Records regulations: The Federal rules restrict any use of the information to criminally investigate or prosecute any alcohol or drug abuse patient.[facility] HospitalIn the event this information is protected by the Federal Confidentiality of Alcohol and Drug Abuse Patient Records regulations: The Federal rules restrict any use of the information to criminally investigate or prosecute any alcohol or drug abuse patient.[facility] HospitalIn the event this information is protected by the Federal Confidentiality of Alcohol and Drug Abuse Patient Records regulations: The Federal rules restrict any use of the information to criminally investigate or prosecute any alcohol or drug abuse patient.[facility] HospitalIn the event this information is protected by the Federal Confidentiality of Alcohol and Drug Abuse Patient Records regulations: The Federal rules restrict any use of the information to criminally investigate or prosecute any alcohol or drug abuse patient.[facility] HospitalIn the event this information is protected by the Federal Confidentiality of Alcohol and Drug Abuse Patient Records regulations: The Federal rules restrict any use of the information to criminally investigate or prosecute any alcohol or drug abuse patient.[facility] HospitalIn the event this information is protected by the Federal Confidentiality of Alcohol and Drug Abuse Patient Records regulations: The Federal rules restrict any use of the information to criminally investigate or prosecute any alcohol or drug abuse patient.[facility] HospitalIn the event this information is protected by the Federal Confidentiality of Alcohol and Drug Abuse Patient Records regulations: The Federal rules restrict any use of the information to criminally investigate or prosecute any alcohol or drug abuse patient.[facility] HospitalIn the event this information is protected by the Federal Confidentiality of Alcohol and Drug Abuse Patient Records regulations: The Federal rules restrict any use of the information to criminally investigate or prosecute any alcohol or drug abuse patient.[facility] HospitalIn the event this information is protected by the Federal Confidentiality of Alcohol and Drug Abuse Patient Records regulations: The Federal rules restrict any use of the information to criminally investigate or prosecute any alcohol or drug abuse patient.[facility] HospitalIn the event this information is protected by the Federal Confidentiality of Alcohol and Drug Abuse Patient Records regulations: The Federal rules restrict any use of the information to criminally investigate or prosecute any alcohol or drug abuse patient.[facility] HospitalIn the event this information is protected by the Federal Confidentiality of Alcohol and Drug Abuse Patient Records regulations: The Federal rules restrict any use of the information to criminally investigate or prosecute any alcohol or drug abuse patient.[facility] HospitalIn the event this information is protected by the Federal Confidentiality of Alcohol and Drug Abuse Patient Records regulations: The Federal rules restrict any use of the information to criminally investigate or prosecute any alcohol or drug abuse patient.[facility] HospitalIn the event this information is protected by the Federal Confidentiality of Alcohol and Drug Abuse Patient Records regulations: The Federal rules restrict any use of the information to criminally investigate or prosecute any alcohol or drug abuse patient.[facility] HospitalIn the event this information is protected by the Federal Confidentiality of Alcohol and Drug Abuse Patient Records regulations: The Federal rules restrict any use of the information to criminally investigate or prosecute any alcohol or drug abuse patient.[facility] HospitalIn the event this information is protected by the Federal Confidentiality of Alcohol and Drug Abuse Patient Records regulations: The Federal rules restrict any use of the information to criminally investigate or prosecute any alcohol or drug abuse patient.[facility] HospitalIn the event this information is protected by the Federal Confidentiality of Alcohol and Drug Abuse Patient Records regulations: The Federal rules restrict any use of the information to criminally investigate or prosecute any alcohol or drug abuse patient.[facility] HospitalIn the event this information is protected by the Federal Confidentiality of Alcohol and Drug Abuse Patient Records regulations: The Federal rules restrict any use of the information to criminally investigate or prosecute any alcohol or drug abuse patient.[facility] HospitalIn the event this information is protected by the Federal Confidentiality of Alcohol and Drug Abuse Patient Records regulations: The Federal rules restrict any use of the information to criminally investigate or prosecute any alcohol or drug abuse patient.[facility] HospitalIn the event this information is protected by the Federal Confidentiality of Alcohol and Drug Abuse Patient Records regulations: The Federal rules restrict any use of the information to criminally investigate or prosecute any alcohol or drug abuse patient.[facility] HospitalIn the event this information is protected by the Federal Confidentiality of Alcohol and Drug Abuse Patient Records regulations: The Federal rules restrict any use of the information to criminally investigate or prosecute any alcohol or drug abuse patient.[facility] HospitalIn the event this information is protected by the Federal Confidentiality of Alcohol and Drug Abuse Patient Records regulations: The Federal rules restrict any use of the information to criminally investigate or prosecute any alcohol or drug abuse patient.[facility] HospitalIn the event this information is protected by the Federal Confidentiality of Alcohol and Drug Abuse Patient Records regulations: The Federal rules restrict any use of the information to criminally investigate or prosecute any alcohol or drug abuse patient.[facility] HospitalIn the event this information is protected by the Federal Confidentiality of Alcohol and Drug Abuse Patient Records regulations: The Federal rules restrict any use of the information to criminally investigate or prosecute any alcohol or drug abuse patient.[facility] HospitalIn the event this information is protected by the Federal Confidentiality of Alcohol and Drug Abuse Patient Records regulations: The Federal rules restrict any use of the information to criminally investigate or prosecute any alcohol or drug abuse patient.[facility] HospitalIn the event this information is protected by the Federal Confidentiality of Alcohol and Drug Abuse Patient Records regulations: The Federal rules restrict any use of the information to criminally investigate or prosecute any alcohol or drug abuse patient.[facility] HospitalIn the event this information is protected by the Federal Confidentiality of Alcohol and Drug Abuse Patient Records regulations: The Federal rules restrict any use of the information to criminally investigate or prosecute any alcohol or drug abuse patient.[facility] HospitalIn the event this information is protected by the Federal Confidentiality of Alcohol and Drug Abuse Patient Records regulations: The Federal rules restrict any use of the information to criminally investigate or prosecute any alcohol or drug abuse patient.[facility] HospitalIn the event this information is protected by the Federal Confidentiality of Alcohol and Drug Abuse Patient Records regulations: The Federal rules restrict any use of the information to criminally investigate or prosecute any alcohol or drug abuse patient.[facility] HospitalIn the event this information is protected by the Federal Confidentiality of Alcohol and Drug Abuse Patient Records regulations: The Federal rules restrict any use of the information to criminally investigate or prosecute any alcohol or drug abuse patient.[facility] Reason for Visit (unrecogniz ed section and content) Specialty Diagnoses / Procedures Referred By Contact Referred To Contact Gastroenterology / GASTROENTEROLOGY Diagnoses Screening for colon cancer Procedures CONSULT TO GASTROENTEROLOGY OFFICE/OUTPATIENT NEW HIGH MDM 60-74 MINUTES Amparo De Leon APRN.SAFETY SPEC [address] [place] [address] If Gastroenterology Referral ID Status Reason Start Date Expiration Date V isits Requested Visits Authorized [id number] Closed Financial Clearance Not Required Patient Cleared - INN Insurance Found 12/10/2021 10/10/2022 1 1 Reason Comments CPAP Supplies Compliance report Reason Comments Opened In Error Reason Comments New Patient Specialty Diagnoses / Procedures Referred By Laila t Referred To Contact SLEEP DISORDERS Diagnoses ZEYNEP Procedures Consult to Sleep Medicine Ted Monroe, DO [address] [place] [address] Neur Sleep [facility] [address] [place] [address] Referral ID Status Reason Start Date Expiration Date Visits Requested Visits Authorized [id number] Pending Review OON/Self Pay Override 03/04/2022 06/02/2022 1 1 Reason Comments Procedure colonoscopy Reason Onset Date Comments Refill Request 05/02/2022 Reason Onset Date Comments Refill Request 05/25/2022 Reason Onset Date Comments Refill Request 10/12/2022 Reason Comments Refill Request Reason Comments HSAT Check In (Adult) Reason Onset Date Comments Refill Request 11/08/2022 Reason Comments Medication Problem Reason Comments Results Reason Comments PAP Rx Faxed DME: [facility] Reason Onset Date Comments Refill Request 01/25/2023 Refill Request 01/27/2023 Reason Onset Date Comments Refill Request 01/25/2023 Reason Onset Date Comments Refill Request 03/11/2023 Reason Onset Date Comments Refill Request 06/23/2023 Reason Comments Patient Question Reason Comments Procedure Ultrasound Guided Ne edle Core Biopsy left breast Specialty Diagnoses / Procedures Referred By Laila t Referred To Contact General Surgery / GENERAL SURGERY Diagnoses felicitas'd 30 min us left breast bx Procedures SURGERY 30 Self Corwin Dupree MD [address] [place] [address] Referral ID Status Reason Start Date Expiration Date Visits Re quested Visits Authorized [id number] Closed 08/11/2023 10/10/2023 1 1 Reason Comments Radio Imaging Study Comments Reason Comments Radiology US Specialty Diagnoses / Procedures Referred By Laila t Referred To Contact BR IMAGING Diagnoses Abnormality of both breasts on screening mammogram Procedures US BREAST LTD LEFT US BREAST UNI REAL TIME WITH IMAGE LIMITED Ted Monroe, DO [address] [place] [address] [facility] [address] [place] [address] Referral ID Status Reason Start Date Expiration Date V isits Requested Visits Authorized [id number] Closed Auto-Generate d Referral 08/03/2023 10/10/2023 1 1 Reason Comments Appointment Reason Comments Appointment Documentation purpos e. Reason Comments Well Child Reason Onset Date Comments Refill Request 09/04/2023 Reason Comments Radiology MRI Specialty Diagnoses / Procedures Referred By Contac t Referred To Contact MR IMAGING Diagnoses Invasive ductal carcinoma of breast, female, left (HCC) Procedures MRI BREAST WO/W IVCON BILATERAL MRI BREAST WITHOUT&WITH CONTRAST W/CAD BILATERAL Maria Victoria Camilo PA-C [address] [place] [address] [place] [address] Referral ID Status Reason Start Date Expiration Date V isits Requested Visits Authorized [id number] Closed Auto-Generate d Referral 09/15/2023 10/10/2023 1 1 Reason Comments Breast Problem Reason Comments Schedule Surgery Reason Comments Established Patient regroup Reason Comments Consult Specialty Diagnoses / Procedures Referred By Contac t Referred To Contact Radiation Oncology Diagnoses Malignant neoplasm of upper-outer quadrant of left breast in female, estrogen receptor positive (HCC) Abnormal mammogram with microcalcification Procedures RAD/ONC CONSULT OFFICE/OUTPATIENT [facility] 60-[place] [address] [place] [address] Referral ID Status Reason Start Date Expiration Date Visits Requested Visits Authorized [id number] Pending Review PCP Requested Referral 3 09/03/2024 1 1 Reason Comments Patient Education LEFT mastectomy with SN bx/mapping Care Teams (unrecognized sec tion and content) Interior Design Faculty Member Relationship Specialty Start Date End Date Ted Monroe DO [address] [place], [place] [address] PCP - General Family Practice 01/24/14 Interior Design Faculty Member Relationship Specialty Start Date End Date Ted Monroe DO [address] [place] [address] PCP - General Family Practice 01/24/14 Interior Design Faculty Member Relationship Specialty Start Date End Date Ted Monroe, DO [address] [place] [address] PCP - General Family Practice 01/24/14 Interior Design Faculty Member Relationship Specialty Start Date End Date Ted Monroe, DO [address] [place] [address] PCP - General Family Practice 01/24/14 Interior Design Faculty Member Relationship Specialty Start Date End Date Ted Monroe, DO [address] [place] [address] PCP - General Family Practice 01/24/14 Interior Design Faculty Member Relationship Specialty Start Date End Date Ted Monroe, DO [address] [facility] [place] [address] PCP - General Family Practice 01/24/14 Interior Design Faculty Member Relationship Specialty Start Date End Date Ted Monroe, DO [address] [place] [address] PCP - General Family Practice 01/24/14 Interior Design Faculty Member Relationship Specialty Start Date End Date Ted Monroe, DO [address] [place] [address] PCP - General Family Practice 01/24/14 Interior Design Faculty Member Relationship Specialty Start Date End Date Ted Monroe, DO [address] [place] [address] PCP - General Family Practice 01/24/14 Interior Design Faculty Member Relationship Specialty Start Date End Date Ted Monroe, DO [address] [place] [address] PCP - General Family Practice 01/24/14 Interior Design Faculty Member Relationship Specialty Start Date End Date Ted Monroe, DO [address] [place] [address] PCP - General Family Medicine 01/24/14 Interior Design Faculty Member Relationship Specialty Start Date End Date Ted Monroe, DO [address] [place] [address] PCP - General Family Medicine 01/24/14 Interior Design Faculty Member Relationship Specialty Start Date End Date Ted Monroe, DO [address] [place] [address] PCP - General Family Medicine 01/24/14 Interior Design Faculty Member Relationship Specialty Start Date End Date Ted Monroe, DO [address] [place] [address] PCP - General Family Medicine 01/24/14 Interior Design Faculty Member Relationship Specialty Start Date End Date Ted Monroe, DO [address] [place] [address] PCP - General Family Medicine 01/24/14 Interior Design Faculty Member Relationship Specialty Start Date End Date Ted Monroe, DO [address] [place] [address] PCP - General Family Medicine 01/24/14 Interior Design Faculty Member Relationship Specialty Start Date End Date Ted Monroe, DO [address] [place] [address] PCP - General Family Medicine 01/24/14 Interior Design Faculty Member Relationship Specialty Start Date End Date Ted Monroe, DO [address] [place] [address] PCP - General Family Medicine 01/24/14 Interior Design Faculty Member Relationship Specialty Start Date End Date Ted Monroe, DO [address] [place] [address] PCP - General Family Medicine 01/24/14 Interior Design Faculty Member Relationship Specialty Start Date End Date Ted Monroe DO [address] [place] [address] PCP - General Family Medicine 01/24/14 Interior Design Faculty Member Relationship Specialty Start Date End Date Ted Monroe DO [address] [place] [address] PCP - General Family Medicine 01/24/14 Interior Design Faculty Member Relationship Specialty Start Date End Date Ted Monroe DO [address] [place] [address] PCP - General Family Medicine 01/24/14 Interior Design Faculty Member Relationship Specialty Start Date End Date Ted Monroe DO [address] [place] [address] PCP - General Family Medicine 01/24/14 Interior Design Faculty Member Relationship Specialty Start Date End Date Ted Monroe DO [address] [place] [address] PCP - General Family Medicine 01/24/14 Interior Design Faculty Member Relationship Specialty Start Date End Date eTd Monroe DO [address] [place] [address] PCP - General Family Medicine 01/24/14 Interior Design Faculty Member Relationship Specialty Start Date End Date Ted Monroe DO [address] [place] [address] PCP - General Family Medicine 01/24/14 Interior Design Faculty Member Relationship Specialty Start Date End Date Ted Monroe DO [address] [place] [address] PCP - General Family Medicine 01/24/14 Interior Design Faculty Member Relationship Specialty Start Date End Date Ted Monroe, [address] [place] [address] PCP - General Family Medicine 01/24/14 Interior Design Faculty Member Relationship Specialty Start Date End Date Ted Monroe, [address] [place] [address] PCP - General Family Medicine 01/24/14 Interior Design Faculty Member Relationship Specialty Start Date End Date Ted Monroe, [address] [place] [address] PCP - General Family Medicine 01/24/14 Interior Design Faculty Member Relationship Specialty Start Date End Date Ted Monroe DO [address] [place] [address] PCP - General Family Medicine 01/24/14 Interior Design Faculty Member Relationship Specialty Start Date End Date Ted Monroe DO [address] [place] [address] PCP - General Family Medicine 01/24/14 Interior Design Faculty Member Relationship Specialty Start Date End Date Ted Monroe DO [address] [place] [address] PCP - General Family Medicine 01/24/14 Interior Design Faculty Member Relationship Specialty Start Date End Date Ted Monroe DO [address] [place] [address] PCP - General Family Medicine 01/24/14 Interior Design Faculty Member Relationship Specialty Start Date End Date Ted Monroe, [address] [place] [address] PCP - General Family Medicine 01/24/14 Interior Design Faculty Member Relationship Specialty Start Date End Date Ted Monroe DO [address] [place] [address] PCP - General Family Medicine 01/24/14 Interior Design Faculty Member Relationship Specialty Start Date End Date Ted Monroe DO [address] [place] [address] PCP - General Family Medicine 01/24/14 Interior Design Faculty Member Relationship Specialty Start Date End Date Ted Monroe DO [address] [place] [address] PCP - General Family Medicine 01/24/14 Interior Design Faculty Member Relationship Specialty Start Date End Date Ted Monroe DO [address] [place] [address] PCP - General Family Medicine 01/24/14 Jacoby Guevara MD, [address] [place] [address] Physician Radiation Oncology 09/09/23 Interior Design Faculty Member Relationship Specialty Start Date End Date Ted Monroe DO [address] [place] [address] PCP - General Family Medicine 01/24/14 Jacoby Guevara MD, [address] [place] [address] Physician Radiation Oncology 09/09/23 Interior Design Faculty Member Relationship Specialty Start Date End Date Ted Monroe DO [address] [place] [address] PCP - General Family Medicine 01/24/14 Jacoby Guevara MD, [address] [place] [address] Physician Radiation Oncology 09/09/23 Interior Design Faculty Member Relationship Specialty Start Date End Date Ted Monroe DO [address] [place] [address] PCP - General Family Medicine 01/24/14 Jacoby Guevara MD, [address] [place] [address] Physician Radiation Oncology 09/09/23 Interior Design Faculty Member Relationship Specialty Start Date End Date Ted Monroe DO [address] [place] [address] PCP - General Family Medicine 01/24/14 Jacoby Guevara MD, [address] [place] [address] Physician Radiation Oncology 09/09/23 Interior Design Faculty Member Relationship Specialty Start Date End Date Ted Monroe DO [address] [place] [address] PCP - General Family Medicine 01/24/14 Jacoby Guevara MD, [address] [place] [address] Physician Radiation Oncology 09/09/23 Interior Design Faculty Member Relationship Specialty Start Date End Date Ted Monroe DO [address] [place] [address] PCP - General Family Medicine 01/24/14 Jacoby Guevara MD, [address] [place] [address] Physician Radiation Oncology 09/09/23 Interior Design Faculty Member Relationship Specialty Start Date End Date Ted Monroe DO [address] [place] [address] PCP - General Family Medicine 01/24/14 Jacoby Guevara MD, [address] [place] [address] Physician Radiation Oncology 09/09/23 Interior Design Faculty Member Relationship Specialty Start Date End Date Ted Monroe DO [address] [place] [place] [address] PCP - General Family Medicine 01/24/14 Jacoby Guevara MD, [address] [place] [address] Physician Radiation Oncology 09/09/23 Interior Design Faculty Member Relationship Specialty Start Date End Date Ted Monroe DO [address] [place] [address] PCP - General Family Medicine 01/24/14 Jacoby Guevara MD, [address] [place] [address] Physician Radiation Oncology 09/09/23 Interior Design Faculty Member Relationship Specialty Start Date End Date Ted Monroe DO [address] [facility] [place] [address] PCP - General Family Medicine 01/24/14 Jacoby Guevara MD, [address] [place] [address] Physician Radiation Oncology 09/09/23 INFORMATION SOURCE (unrecogn ized section and content) DATE CREATED AUTHOR AUTHOR'S ORGANIZ ATION 11/04/2023 [facility] DATE CREATED AUTHOR AUTHOR'S ORGANIZ ATION 11/10/2023 [facility] DATE CREATED AUTHOR AUTHOR'S ORGANIZ ATION 11/13/2023 [facility] FOR RECORDS PERTAINING TO PATIENTS WHO ARE OR HAVE BEEN ENROLLED IN A CHEMICAL DEPENDENCY/SUBSTANCEABUSE PROGRAM, SOME INFORMATION MAY BE OMITTED. This clinical summary was aggregated from multiple sources. Caution should be exercised in using it in the provision of clinical care. This summary normalizes information from multiple sources, and as a consequence, information in this document may materially change the coding, format and clinical context of patient data. In addition, data may be omitted in some cases. CLINICAL DECISIONS SHOULD BE BASED ON THE PRIMARY CLINICAL RECORDS. [facility]. provides no warranty or guarantee of the accuracy or completeness of information in this document.
--- NOTE | 2023-11-15 22:04 | ED.VIS.LOWEX ---
HPI History of Present Illness Chief Complaint: Lower Extremity Injury Informant: patient Onset/Context/Timing Onset: Weeks (1) Context: Gradual Onset Timing: Continuous Quality of Pain: Aching Location: behind L knee Current Severity: Severe Maximum Severity: Severe Worsened by: bending, weight bearing Relieved by: rest and remaining still Associated Symptoms Associated Symptoms: Negative for Parasthesia, Weakness or Loss of Funtion Narrative Narrative: Patient states she has been having gradually worsening pain in the left knee/leg for the past week. She states it seemed to start around the time she discontinued Celebrex which she was taking daily for arthritis in the knee. However she states the pain is so severe today that it does not feel like arthritis that is something different. She states the majority of the pain seems to be in the popliteal fossa. It goes up to the distal thigh a little bit, but she has no pain mid thigh or proximal, nor in the lower leg/calf or foot. No numbness. She is concerned about a blood clot because she recently had a mastectomy for breast cancer, this was about 7 weeks ago she had a lot of bleeding and had to have another surgery as a result of this, all of which was done at [facility]. She still has a RODERICK drain in it and it is still draining about 60 or 70 cc/day. She is following with oncology here Dr. Lopez, she states she had some blood work scheduled for tomorrow to check her platelets. She does not have a history of thrombocytopenia but does have a history of bruising easily. She does not take any other antiplatelet or anticoagulant medications. She denies any chest pain or dyspnea even with exertion. No syncope or palpitations. No fevers or chills that she knows of. [facility] Medical History (Updated 11/16/23 @ 07:[address] Rama Su MD) Breast cancer HTN (hypertension) Migraines ZEYNEP (obstructive sleep apnea) Osteoarthritis Home Medications celecoxib 200 mg capsule 200 mg PO DAILY 10/10/13 [History Last Taken 09/21/18] hydrochlorothiazide 12.5 mg capsule 12.5 mg PO DAILY 05/29/18 [History Last Taken Unknown] metoprolol succinate 100 mg tablet,extended release 24 hr 100 mg PO QHS 05/29/18 [History Last Taken 09/26/18 20:30] cholecalciferol (vitamin D3) 50 mcg (2,000 unit) tablet 5,000 unit PO DAILY 90 days ##90 06/03/18 [History Last Taken Unknown] conjugated estrogens 0.625 mg/gram vaginal cream (Premarin) 1 dose vaginal QODAY 09/26/18 [History Last Taken Unknown] fluoxetine 20 mg capsule 20 mg PO DAILY 09/26/18 [History Last Taken Unknown] multivitamin,zr-[id number]-rrmuevsq 27 mg-0.4 mg tablet (Therems-M) 1 tab PO DAILY 09/26/18 [History Last Taken Unknown] ibuprofen 600 mg tablet 600 mg PO 4X/DAY pain or cramping #30 tabs 09/27/18 [Rx Last Taken Unknown] cephalexin 500 mg capsule 500 mg PO TID #30 caps 11/16/23 [Rx Last Taken Unknown] oxycodone-acetaminophen 5 mg-325 mg tablet 1 tab PO Q6H PRN PRN Pain 3 days #12 TABLETS 11/16/23 [Rx Last Taken Unknown] prednisone 20 mg tablet 40 mg (2 x 20 mg) PO DAILY #8 TABLETS 11/16/23 [Rx Last Taken Unknown] Allergy/AdvReac Type Severity Reaction Status Date / Time No Known Allergies Allergy Verified 11/15/23 17:54 Surgical History (Updated 11/16/23 @ 07:[address] Rama Su MD) History of left mastectomy Social History Smoking Status: Never smoker ROS ROS ED Constitutional Constitutional ED: Denies chills or fever(s) Cardiovascular Cardiovascular: Denies leg edema Musculoskeletal Musculoskeletal: Reports extremity pain; Denies neck pain Integumentary Denies Abrasions or rash Neurologic Neurologic: Denies paresthesias or weakness EXAM Physical Exam Const Vital Signs: 11/15/23 17:54 11/16/23 01:00 11/16/23 06:57 Temperature 99.3 F H Temperature Source Temporal Pulse Rate 62 75 56 L Respiratory Rate 18 16 18 Blood Pressure 157/67 H 136/65 H 131/65 H Blood Pressure Mean 97 88 87 Pulse Ox 99 98 95 Oxygen Delivery Method Room Air Room Air Room Air Positive well nourished and well developed General Appearance ED: well developed and NAD Neck full ROM and supple Back/Spine normal ROM and normal to inspection Extremity normal to inspection Extremity Narrative: Possibly mild effusion left knee. No increased warmth or erythema compared to the contralateral knee. No anterior lateral/medial tenderness, but she is tender in the popliteal fossa. There is no palpable cord. There is no edema bilaterally, her legs are symmetric appearing. Short arc range of motion to the left knee is without any pain, but when she gets to about 30-45 degrees she starts having pain and soon thereafter is limited. Extensor mechanism intact without difficulty. All ligaments stable with short endpoints, but there is pain w/ attempting to stress ACL & PCL, which are limited exams due to her inability to bend very far. Bounding distal pulses and foot/dorsalis pedis. All compartments soft and nondistended. Normal inspection of the LLE without signs of infection/cellulitis, although there is very slight erythema in the popliteal fossa but superficial palpation of the skin does not yield tenderness. Straight leg raise is negative yielding no radicular pain or increased pain at all. Mostly just hurts with bending and trying to bear weight. General Extremety ED: Yes weight-bearing difficulty General Extremity: weight-bearing difficulty Neuro oriented x3, no focal motor deficits and no sensory deficits noted Sensorium / Orientation: alert Psych mental status grossly normal and thought process normal Skin no wounds Rashes: no rashes MDM MDM MDM Narrative Medical decision making narrative: Venous eval Doppler ultrasound was obtained and negative for Feliciano's cyst, DVT, or other ultrasound-visible abnormality. She has excellent pulses distally and a warm leg, so I do not think she has an ischemic limb. She has a very mild nonspecific leukocytosis. Her coags and platelets are normal. The rest of her labs are normal except for uric acid which is high, arguing possibly this is gout but is not specific. She has never had gout before. Three-view x-ray series of the left knee is negative for any acute on my interpretation, and radiology was in agreement I reviewed their interpretation. The patient indicates that she absolutely cannot walk on this. She was given some pain medication, and she consented to performing an arthrocentesis which we did but I was only able to get a scant amount of joint fluid. This was sent for cell count and crystals as well as culture, but there was not enough to perform all of this testing. Since I only obtained less than half cc of fluid, she did not have significant improvement of her symptoms, although we discussed that might be a possibility if her knee had a lot of fluid in it, and it did seem like there would be some, as there was slight asymmetry on exam. With only a scant amount of fluid, this makes gout and septic arthritis much less likely. The patient was observed in the ER overnight and allowed to rest/sleep since family left and she did not have a ride home until the AM, and we did not have a clinical reason to admit her. In the end, I think she will end up needing an MRI if the pain does not resolve. Internal derangement such as ACL or PCL or meniscus injury are in the differential, I do not think this is acute ischemic pain or vascular-related, and there is very slight erythema to the back of the knee so I am considering erysipelas/cellulitis as well, but I would expect it to be much more prominent and visible if it had been going on for a week. Crystal-induced arthritis may also be in the differential, but I am not able to get crystals or cell counts tonight because I sent a very small amount of fluid. On that note, we asked the lab what tests they could run with a small amount of fluid that we were able to provide, and the robot technician refused to make that assessment and is leaving the fluid for the morning shift to decide and running no testing tonight (pt seen/tested over public information officer). Because of the postoperative wound and drainage she is having, separate from this problem, she is being asked to avoid NSAIDs, so my plan is to put her on a short course of prednisone to see if that helps her knee, without extending it long enough to affect her operative healing, as well as Keflex to empirically treat the possibility of erysipelas/early cellulitis of the affected area. The patient slept overnight because she did not have a ride home. Upon waking up to get Lobo wrap, crutches, mobilized in addition to initial doses of Keflex and prednisone, she is hurting even worse, she can barely move her leg, she cannot move to even try to stand. She states if it remains still, the pain is better. I reexamined her once again. There is no subcutaneous emphysema, no palpable cords, the erythema I saw earlier is gone, the area is nontender but she has severe pain with any little movement of the leg, with the pain being in the popliteal fossa and proximal calf. Asking hospitalist service to admit for further evaluation. Dr. Su agreeable. After this discussion the patient was helped on the bedside commode, she voluntarily tried to put weight on her leg in order to just mobilize back to the bed, which caused her to have such severe pain that she fell but luckily into the bed and did not injure herself. I reevaluated her, and her exam is unchanged compared with above. Lab Data Attestation: I reviewed the patient's lab results. Labs: Laboratory Results - last 24 hr 11/15/23 11/16/23 22:19 00:34 WBC 11.2 H RBC 4.49 Hgb 12.6 Hct 38.4 MCV 85.5 MCH 28.1 MCHC 32.8 RDW Std Deviation 40.3 RDW Coeff of Danilo 13.0 Plt Count 217 MPV 10.9 PT 13.7 INR 1.1 APTT 24.0 L Sodium 139 Potassium 3.0 L Chloride 105 Carbon Dioxide 24.0 Anion Gap 10 BUN 15 Creatinine 1.15 H Est GFR (MDRD) Af Amer 62 Est GFR (MDRD) Non-Af 51 L BUN/Creatinine Ratio 13.0 Glucose 107 H Uric Acid 7.3 H Calcium 9.5 Fluid Crystals Cancelled Fluid Crystal Source Cancelled Fl Crystal Path Review Cancelled Synovial Source Cancelled Synovial Color Cancelled Synovial Appearance Cancelled Synovial Volume Cancelled Synovial Viscosity Cancelled Synovial WBC Cancelled Synovial RBC Cancelled Synovial Tot Cell Ct Cancelled Synov Polynuclear WBCs Cancelled Synov Mononuclear WBCs Cancelled Synovial Neutrophils Cancelled Synovial Lymphocytes Cancelled Synovial Monocytes Cancelled Synovial Plasma Cells Cancelled Synovial Other Cells Cancelled Synovial Polynuclear % Cancelled Synovial Mononuclear % Cancelled Synovial Path Comment Cancelled Radiography Diagnostic Testing: Clinical Impression(s) from Imaging Studies Knee X-Ray 11/15/23 18:00 IMPRESSION: No acute abnormalities. Minimal, patellofemoral compartment predominant, tricompartmental degenerative arthrosis of the knee. Electronically Signed: Luis More MD at 18:36 EST , Venous Duplex 11/15/23 22:06 IMPRESSION: No sonographic evidence of deep venous thrombosis. Electronically Signed: Luis More MD at 23:05 EST , Management Discussion w/another healthcare provider: Hospitalist Procedures Other Procedures Procedure(s): Arthrocentesis left knee: After informed consent, perform local anesthesia with 1% 1 cc plain lidocaine medial aspect just below the patella, inserted an 18-gauge needle which she tolerated well but only a scant amount of fluid was able to be obtained. dressed w/ bacitracin afterwards. Discharge Plan Triage Chief Complaint: Lower Extremity Injury ED Provider: Bryan Vidal Dx/Rx/DC Orders Clinical Impression: Popliteal pain, Intractable pain, Unable to stand up Prescriptions: New cephalexin 500 mg capsule 500 mg PO TID Qty: 30 0RF prednisone 20 mg tablet 40 mg PO DAILY Qty: 8 0RF oxycodone-acetaminophen [oxycodone-acetaminophen] 5-325 mg tablet 1 tab PO Q6H PRN PRN (Reason: Pain) 3 Days Qty: 12 0RF No Action cholecalciferol (vitamin D3) 2,000 unit tablet 2,000 unit tablet 5,000 unit PO DAILY 90 Days Qty: 90 Patient Comments: celecoxib 200 MG capsule 200 mg PO DAILY Patient Comments: pain metoprolol succinate 100 MG tablet extended release 24 hr 100 mg PO QHS Patient Comments: hydrochlorothiazide 12.5 MG capsule 12.5 mg PO DAILY Patient Comments: conjugated estrogens [Premarin] 1 DOSE cream 1 dose vaginal QODAY fluoxetine 20 MG capsule 20 mg PO DAILY Therems-M 1 TABLET tablet 1 tab PO DAILY ibuprofen 600 MG tablet 600 mg PO 4X/DAY Qty: 30 1RF Primary Care Provider: Ted Monroe Disposition Disposition: Home, Self Care
--- NOTE | 2023-11-15 22:06 | US_ITS ---
INDICATION: POSTERIOR LT KNEE PAIN EXAMINATION: US Venous Duplex LE Unilat / Limited TECHNIQUE: Armendariz scale, pulse wave, and color flow Doppler imaging was performed of the lower extremity venous system. The left greater saphenous, common femoral, femoral, and popliteal veins were interrogated. COMPARISON: None. FINDINGS: There is normal compression, augmentation, and signal throughout the visualized deep lower extremity veins. No mass or fluid collection. US/Venous Duplex Imag/Limited/Uni IMPRESSION: No sonographic evidence of deep venous thrombosis. Electronically Signed: Luis More MD at 23:05 EST ,
[2023-11-15 22:26] LABS: Hematocrit 38.4 % (37-47); Hemoglobin 12.6 g/dL (12.0-15.0); Mean Corp Hgb Conc 32.8 g/dL (32-36); Mean Corpuscular Hgb 28.1 pg (27.0-32.0); Mean Corpuscular Volume 85.5 fL (81-99); Mean Platelet Vol. 10.9 fl (6.2-12.0); Platelet Count 217 K/mm3 (150-450); RBC Distribution Width SD 40.3 fl (35.1-43.9); Red Blood Count 4.49 M/mm3 (4.2-5.4); White Blood Count 11.2 K/mm3 (4.4-11.0)
[2023-11-15 22:43] LABS: International Normalized Ratio 1.1; Prothrombin Time (Protime)PT. 13.7 SECONDS (11.7-14.9)
[2023-11-15 22:55] LABS: Anion Gap 10 (5-15); BUN 15 mg/dL (7-18); Calcium,Total 9.5 mg/dL (8.5-10.1); Chloride 105 mmol/L (98-107); Creatinine, Serum 1.15 mg/dL (0.55-1.02); EST Glomerular Filtration Rate 51 mL/min (>60); Est Glom Filt Rate - Afr Amer 62 mL/min (>60); Glucose 107 mg/dL (74-106); Sodium Level 139 mmol/L (136-145)
[2023-11-16] VITALS (9 sets, daily range): BP systolic 124–139; BP diastolic 58–76; PULSE 56–75; RESP 16–18; TEMP 36.5–36.9; O2SAT 95–99; BMI 45.1
[2023-11-16 00:08] LABS: Uric Acid 7.3 mg/dL (2.6-6.0)
[2023-11-16] MEDS: Oxycodone/Apap 5/325 Tablet PO (01:07)
--- NOTE | 2023-11-16 06:30 | ED.RN ---
Attempted to wrap pt knee with MINERVA. Pt unable to lift leg expressing pain is worse not more than ever. CERTIFIED INDUSTRIAL HYGIENIST helf leg up for this nurse to wrap. Pt stating pain is worse and pain meds did not help much. Attempted to readjust leg/knee but pt expressing it making it worse. Dr. Vidal updated.
[2023-11-16] MEDS: predniSONE 20 MG Tablet 40 MG PO (06:39)
[2023-11-16] MEDS: Cephalexin 250 MG Capsule 500 MG PO (06:39)
--- NOTE | 2023-11-16 07:14 | HP.PCM.HOS_ITS ---
HPI - General General Date of Admission: 11/16/23 Date of Service: 11/16/23 Chief Complaint: Left knee pain, worsening, immobility. HPI Narrative The patient is a 63 y/o F w/ PMHx: Possible CKD stage III unclear subtype, Breast L sided CA s/p recent mastectomy at [facility] with RODERICK drain in place x 7 weeks (draining routinely 60 or 70 cc/day serosanguineous fluid), HTN, HLD, Chronic migraines, ZEYNEP on CPAP, Hx Nephrolithiasis, Anxiety and Depression who presents to the [facility] ED on 11/16/23 with 1 week history of left lower extremity progressively worsening discomfort specifically aching, behind the left knee, worse with weight bearing and being, improved with rest starting immediately after she stopped her celebrex secondary to concern for bleeding issues with thrombocytopenia per her Oncologist Dr. Loepz. She denies any recent fevers or viral type symptoms. She denies any redness or injury to the knee. She note pain with activity attempts 10/10 and severe difficulties even moving the knee. At rest pain is tolerable 2/10, more aching and more severe with movement. Workup in the ED included T99.3, heart rate 62, BP 157/67 with most recent repeat BP 131/65, respiratory rate 18, 99% on room air, CBC with a BC 11.2, hemoglobin 12 .6, platelets 217 without differential, coags with PTT 24 otherwise unremarkable, BMP with potassium 3.0, BUN/creatinine 15/1.15, glucose 107, uric acid 7.3, venous duplex ultrasound of the left lower extremity unremarkable, plain film of the left knee with minimal patellofemoral compartment predominant tricompartmental degenerative arthrosis of the knee with no acute findings otherwise. In the ED patient ministered prednisone 40 mg p.o. x 1, Percocet 1 tablet p.o. x 1, Solu-Medrol 60 mg IV x 1, Keflex 500 mg p.o. x 1. Arthrocentesis performed in the ED and fluid pending upon requested evaluation of patient but minimal fluid was obtained thus lab is uncertain if they will be able to obtain any labs with it; however, ED discussed case with lab and requesting at least culture be obtained. [facility] Medical History (Updated 11/16/23 @ 07:[address] Rama Su MD) Breast cancer, left History of nephrolithiasis HLD (hyperlipidemia) HTN (hypertension) Migraines ZEYNEP on CPAP Osteoarthritis Home Medications celecoxib 200 mg capsule 200 mg PO DAILY 10/10/13 [History Last Taken 09/21/18] hydrochlorothiazide 12.5 mg capsule 12.5 mg PO DAILY 05/29/18 [History Last Taken Unknown] metoprolol succinate 100 mg tablet,extended release 24 hr 100 mg PO QHS 05/29/18 [History Last Taken 09/26/18 20:30] cholecalciferol (vitamin D3) 50 mcg (2,000 unit) tablet 5,000 unit PO DAILY 90 days ##90 06/03/18 [History Last Taken Unknown] conjugated estrogens 0.625 mg/gram vaginal cream (Premarin) 1 dose vaginal QODAY 09/26/18 [History Last Taken Unknown] fluoxetine 20 mg capsule 20 mg PO DAILY 09/26/18 [History Last Taken Unknown] multivitamin,[id number]-htze-[id number] 27 mg-0.4 mg tablet (Therems-M) 1 tab PO DAILY 09/26/18 [History Last Taken Unknown] ibuprofen 600 mg tablet 600 mg PO 4X/DAY pain or cramping #30 tabs 09/27/18 [Rx Last Taken Unknown] cephalexin 500 mg capsule 500 mg PO TID #30 caps 11/16/23 [Rx Last Taken Unknown] oxycodone-acetaminophen 5 mg-325 mg tablet 1 tab PO Q6H PRN PRN Pain 3 days #12 TABLETS 11/16/23 [Rx Last Taken Unknown] prednisone 20 mg tablet 40 mg (2 x 20 mg) PO DAILY #8 TABLETS 11/16/23 [Rx Last Taken Unknown] Allergy/AdvReac Type Severity Reaction Status Date / Time No Known Allergies Allergy Verified 11/15/23 17:54 Family History (Updated 11/16/23 @ 07:[address] Rama Su MD) Mother Dementia Father Skin cancer (melanoma) Heart disease Hypertension CAD (coronary artery disease) Surgical History (Updated 11/16/23 @ 07:[address] Rama Su MD) History of dental surgery History of left mastectomy S/P cystoscopy with ureteral stent placement Social History (Updated 11/16/23 @ 07:[address] Rama Su MD) household members: none Smoking Status: Never smoker alcohol intake: never substance use type: does not use ROS ROS Narrative Admission Review of Systems: CONSTITUTIONAL: No weight loss, fever, chills, + weakness or fatigue. HEENT: Eyes: No visual loss, blurred vision, double vision or yellow sclerae. Ears, Nose, Throat: No hearing loss, sneezing, congestion, runny nose or sore throat. SKIN: No rash or itching, lesions, wounds, + left chest status postmastectomy with RODERICK drain still in place with ongoing serosanguineous drainage. CARDIOVASCULAR: No chest pain, chest pressure or chest discomfort, palpitations, edema, orthopnea, syncopal events. RESPIRATORY: No shortness of breath, cough or sputum, wheezing, hemoptysis. GASTROINTESTINAL: + Decreased oral intake recently. No nausea, vomiting or diarrhea, abdominal pain, melena, BRBPR. GENITOURINARY: No dysuria, frequency, urgency or retention. NEUROLOGICAL: No headache, dizziness, syncope, paralysis, ataxia, numbness or tingling in the extremities, focal weakness, change in bowel or bladder control, seizure. MUSCULOSKELETAL: + muscle, back pain, joint pain or stiffness. HEMATOLOGIC: No anemia. + Easy bleeding/bruising. LYMPHATICS: No enlarged nodes. No history of splenectomy. PSYCHIATRIC: + History of anxiety and depression. ENDOCRINOLOGIC: No reports of sweating, cold or heat intolerance. No polyuria or polydipsia. ALLERGIES: No history of asthma, hives, eczema or rhinitis. Vital Signs Vital Signs Vital Signs: 11/15/23 17:54 11/16/23 01:00 11/16/23 06:57 Temperature 99.3 F H Temperature Source Temporal Pulse Rate 62 75 56 L Respiratory Rate 18 16 18 Blood Pressure 157/67 H 136/65 H 131/65 H Blood Pressure Mean 97 88 87 Pulse Ox 99 98 95 Oxygen Delivery Method Room Air Room Air Room Air Physical Exam Narrative Physical Examination: General: Awake, alert, oriented x 3 and cooperative, seated upright in ED bed, notes knee discomfort improved currently if completely still and at rest. Skin: Normal color, normal turgor, no icterus, no cyanosis except for recent left-sided mastectomy several weeks out, RODERICK drain in place with serosanguineous fluid. HEENT: AT/NC, EOMI, PERRLA, dry MM, no carotid bruits or JVD noted; however difficult exam given thickened neck. Lungs: Mildly diminished, distant, appropriate breath sounds, no rales, ronchi or wheezing. Heart: Mildly bradycardic with regular rhythm; no gallop, rub audible. Abdomen: Soft, morbidly obese, NTTP, ND, distant mildly hyperactive BS, no appreciated HSM however habitus makes evaluation difficult. Extremities: No cyanosis, no clubbing, no marked peripheral edema, notable left knee discomfort with palpation but more so with any range of motion attempts, no evidence of any erythema. Neurological: Patient awake, alert, oriented as noted, cognitive function intact; pupils equally reactive to light and accommodation, cranial nerves II- XII grossly normal, moving all 4 extremities except extremely limited left knee movement given severity of pain, strength accordingly moderately to severely globally decreased. Psychiatric: Affect appears fatigued, no acute evidence of depressive or anxiety feelings but does have underlying history. Results Lab / Micro Data 11/15/23 22:19 11/15/23 22:19 Labs: Laboratory Results - last 24 hr 11/15/23 22:19: WBC 11.2 H, RBC 4.49, Hgb 12.6, Hct 38.4, MCV 85.5, MCH 28.1, MCHC 32.8, RDW Std Deviation 40.3, RDW Coeff of Danilo 13.0, Plt Count 217, MPV 10.9, PT 13.7, INR 1.1, APTT 24.0 L, Sodium 139, Potassium 3.0 L, Chloride 105, Carbon Dioxide 24.0, Anion Gap 10, BUN 15, Creatinine 1.15 H, Est GFR (MDRD) Af Amer 62, Est GFR (MDRD) Non-Af 51 L, BUN/Creatinine Ratio 13.0, Glucose 107 H, Uric Acid 7.3 H, Calcium 9.5 11/16/23 00:34: Fluid Crystals Cancelled, Fluid Crystal Source Cancelled, Fl Crystal Path Review Cancelled, Synovial Source Cancelled, Synovial Color Cancelled, Synovial Appearance Cancelled, Synovial Volume Cancelled, Synovial Viscosity Cancelled, Synovial WBC Cancelled, Synovial RBC Cancelled, Synovial Tot Cell Ct Cancelled, Synov Polynuclear WBCs Cancelled, Synov Mononuclear WBCs Cancelled, Synovial Neutrophils Cancelled, Synovial Lymphocytes Cancelled, Synovial Monocytes Cancelled, Synovial Plasma Cells Cancelled, Synovial Other Cells Cancelled, Synovial Polynuclear % Cancelled, Synovial Mononuclear % Cancelled, Synovial Path Comment Cancelled Imaging Radiology Impression Knee X-Ray 11/15/23 18:00 IMPRESSION: No acute abnormalities. Minimal, patellofemoral compartment predominant, tricompartmental degenerative arthrosis of the knee. Electronically Signed: Luis More MD at 18:36 EST , Venous Duplex 11/15/23 22:06 IMPRESSION: No sonographic evidence of deep venous thrombosis. Electronically Signed: Luis More MD at 23:05 EST , Assessment & Plan Assessment/Plan (1) Intractable pain: PLAN: Plan The patient is a 63 y/o F w/ PMHx: Possible CKD stage III unclear subtype, Breast L sided CA s/p recent mastectomy at [facility] with RODERICK drain in place x 7 weeks (draining routinely 60 or 70 cc/day serosanguineous fluid), HTN, HLD, Chronic migraines, ZEYNEP on CPAP, Hx Nephrolithiasis, Anxiety and Depression who presents to the [facility] ED on 11/16/23 with 1 week history of left lower extremity progressively worsening discomfort specifically aching, behind the left knee, worse with weight bearing and being, improved with rest starting immediately after she stopped her celebrex secondary to concern for bleeding issues with thrombocytopenia per her Oncologist Dr. Lopez. 1. Possible Acute L knee gout versus Acute Inflammatory Arthritis versus Possible Septic joint, Unclear etiology for Acute Left Knee Pain, low suspicion for infectious etiology but still uncertain: Will admit to [facility], maintain on IV Vanc and Cefepime pending culture, ESR and CRP requested, holding further steroids until assure not septic joint given concurrent concerns for gout as noted, plan repeat CBC in AM, continue affected extremity elevation above heart when seated and in bed, DVT US negative, will consult Orthopedic surgery to be cautious, PT/OT/CM consulted to be cautious. 2. Hypokalemia: Admission K+ 3.0, magnesium level requested, supplementation given, repeat level in AM. 3. Left sided breast cancer, unclear specific type: Patient is uncertain of type but states potentially ductal carcinoma, status post recent left mastectomy approximately 7 weeks prior with RODERICK drain in place with ongoing drainage approximately 60 to 70 cc of serosanguineous fluid daily, following with Dr. Fabiana high. She notes intention for further treatment however they are waiting the output from her drain to to melia. 4. Hypertension: Continue home regimen including metoprolol, hydrochlorothiazide, PRN hydralazine. 5. Chronic Kidney Disease Stage III, unclear subtype versus renal insufficiency, unclear given no available trending labs: Admission BUN/Cr 25/10.15, baseline renal function last noted 0.8-0.9 however GFR has decreased but unclear if this is new or chronic as no comparison labs recently, repeat BMP in AM. 6. Anxiety and depression: We will continue patient on fluoxetine regimen. 7. Obesity: Weight loss and lifestyle changes encouraged. 8. Chronic migraines: Per current list not on chronic regimen, if necessary may add. 9. Hyperlipidemia: Per current list on a regimen, defer to outpatient. 10. ZEYNEP: CPAP nightly. 11. DVT prophylaxis: SCDs, hold chemoprophylaxis given recent arthrocentesis and recent bleeding issues reported. 12. CODE status: Patient HCPOA is her children and living will is currently in place. Discussed CODE status at length including difference between FULL code, DNR-CCA and DNR-CC status. Following discussions about the differences in these status, requested Full Code status. Advanced Care Planning Face to Face Time: 16 minutes. Charges/Coding Visit Charges Inpatient E&M: 60126 Init Hosp L2 Procedures Hospitalists Procedures: 69127 Advncd Care Plan 30 Min
--- NOTE | 2023-11-16 07:18 | ED.RN ---
PT WAS ASSISTED TO BEDSIDE COMMODE, CALL LIGHT WAS LAID ON BED NEXT TO PT. AND PT. TOLD TO USE WHEN DONE. PT STATES SHE THOUGHT SHE COULD TRY TO STAND. HEARD YELLING FROM NURSES STATION. NURSES GO IN PT. LAYING SIDEWAYS ACROSS BED, BED SIDE COMMODE DUMPED ON FLOOR.
--- NOTE | 2023-11-16 07:24 | NURSING ---
MED SURG WHITE INTRACTABLE LLE PAIN, INABILITY TO WALK
--- OUTSIDE RECORDS SUMMARY | 2023-11-16 07:47 | XMS RPT_ITS | CCD ---
Author Name Unknown Address [address] [facility] [address] [place] [address] Organization [facility] Care Team Providers Care Load Tester Name Role Phone Ted Monroe DO Primary Care Provider Ted Monroe DO Primary Care Provider Ismael [...] Attending Unavailable TED MONROE Primary Care Unavailable HARPER LOPEZ Referring Unavailable MARIA VICTORIA CAMILO Attending Unavailable TED MONROE Primary Care Unavailable JACOYB GUEVARA MD Referring Unavailable JACOBY GUEVARA MD [...] lity 09-20-2023 13:58-0500 Body height 167.6 cm [facility] 1 Work Phone: [facility] 09-20-2023 13:58-0500 Body temperature 97.11 [degF] Pacc 1 Work Phone: [facility] 09-20-2023 13:58-0500 Body weight 130.64 kg Pacc 1 Work Phone: [facility] 09-20-2023 13:58-0500 Diastolic blood pressure 72 mm[Hg] Pacc 1 Work Phone: [facility] 09-20-2023 13:58-0500 Heart rate 64 /min Pacc 1 Work Phone: [facility] 09-20-2023 13:58-0500 Respiratory rate 16 /min Pacc 1 Work Phone: [facility] 09-20-2023 13:58-0500 SaO2% (BldA) [Mass fraction] 94 % Pacc 1 Work Phone: [facility] 09-20-2023 13:58-0500 Systolic blood pressure 128 mm[Hg] Pacc 1 Work Phone: [facility] 09-20-2023 09:37-0500 Body temperature 97.59 [degF] Jacoby Guevara MD, MD Work Phone: [facility] 09-20-2023 09:37-0500 Body weight 130.86 kg Jacoby Guevara MD, MD Work Phone: [facility] 09-20-2023 09:37-0500 Diastolic blood pressure 76 mm[Hg] Jacoby Guevara MD, MD Work Phone: [facility] 09-20-2023 09:37-0500 Heart rate 52 /min Jacoby Guevara MD, MD Work Phone: [facility] 09-20-2023 09:37-0500 Respiratory rate 15 /min Jacoby Guevara MD, MD Work Phone: [facility] 09-20-2023 09:37-0500 SaO2% (BldA) [Mass fraction] 96 % Jacoby Guevara MD, MD Work Phone: [facility] 09-20-2023 09:37-0500 Systolic blood pressure 137 mm[Hg] Jacoby Guevara MD, MD Work Phone: [facility] 08-27-2023 13:00-0500 Body weight 130.3 kg Harper Lopez DO Work Phone: [facility] 03-23-2022 11:32-0400 Diastolic blood pressure 71 mm[Hg] Corwin Dupree MD Work Phone: [facility] 03-23-2022 11:32-0400 Heart rate 54 /min Corwin Dupree MD Work Phone: [facility] 03-23-2022 11:32-0400 Respiratory rate 16 /min Corwin Dupree MD Work Phone: [facility] 03-23-2022 11:32-0400 SaO2% (BldA) [Mass fraction] 95 % Corwin Dupree MD Work Phone: [facility] 03-23-2022 11:32-0400 Systolic blood pressure 133 mm[Hg] Corwin Dupree MD Work Phone: [facility] 03-23-2022 09:56-0400 Body temperature 98.49 [degF] Corwin Dupree MD Work Phone: [facility] 03-23-2022 09:56-0400 Body weight 120.2 kg Corwin Dupree MD Work Phone: [facility] Encounters Encounter Date Encounter Type Care Provider Facility Start: 11-09-2023 End: 11-09-2023 ambulatory ANDREW LOPEZ Facility:[facility] Start: 11-03-2023 ambulatory UNKNOWN PROVIDER Facili ty:[facility] Start: 11-03-2023 ambulatory UNKNOWN PROVIDER Facili ty:[facility] Start: 11-01-2023 End: 11-01-2023 ambulatory MARIA VICTORIA CAMILO Facility:[facility] Start: 10-28-2023 End: 10-28-2023 ambulatory JACOBY GUEVARA MD Facility:[facility] Start: 10-20-2023 End: 10-20-2023 ambulatory HARPER LOPEZ Facility:[facility] Start: 10-19-2023 End: 10-20-2023 ambulatory ANDREW Devin QUEZADAJudith Facility:[facility] Start: 10-13-2023 End: 10-13-2023 ambulatory MARIA VICTORIA DURONN Facility:[facility] Start: 10-07-2023 End: 10-10-2023 ambulatory TED Young MONROE Facility:[facility] Start: 09-30-2023 End: 09-30-2023 ambulatory Sanam Brenda MADDOX Work Phone: [facility] Procedures Date Procedure Procedure Detail Performing Clinician Start: 10-08-2023 Antibody screen TED MONROE Plan of Treatment Date Care Activity Detail Author Start: 03-23-2032 Colonoscopy COLONOSCOPY [facility] Start: 03-23-2032 COLORECTAL CANCER SCREENING COLORECTAL CANCER SCREENING [facility] Start: 03-23-2032 Screening for malign ant neoplasm of colon [facility] Start: 08-02-2029 Urine microalbumin profile [facility] Start: 04-28-2028 PAP TESTING PAP TESTING [facility] Start: 04-28-2028 Screening for malign ant neoplasm of cervix Pap Testing [facility] Start: 11-14-2027 Lipid 1996 panel - S dharmesh or Plasma Lipid Screening [facility] Start: 11-14-2027 Lipid panel Lipid Screening [facility] Start: 11-14-2027 LIPID SCREEN LIPID SCREEN [facility] Start: 03-23-2027 Colonoscopy COLONOSCOPY [facility] Start: 03-23-2027 COLORECTAL CANCER SCREENING COLORECTAL CANCER SCREENING [facility] Start: 09-23-2026 Diabetes Screening Diabetes Screenin g [facility] Start: 09-20-2026 Diabetes Screening Diabetes Screenin g [facility] Start: 05-22-2026 LIPID SCREEN LIPID SCREEN [facility] Start: 11-14-2025 DIABETES SCREEN DIABETES SCREEN [facility] Start: 11-14-2025 Diabetes Screening Diabetes Screenin g [facility] Start: 09-12-2025 PAP TESTING PAP TESTING [facility] Start: 09-20-2024 BP Controlled (<130/80) BP Controlle d (<130/80) [facility] Start: 08-03-2024 Mammography Mammogram Screening [facility] Start: 08-03-2024 Screening for malign ant neoplasm of breast Mammogram Screening [facility] Start: 07-02-2024 Mammography Mammogram Screening [facility] Start: 05-22-2024 DIABETES SCREEN DIABETES SCREEN [facility] Start: 12-03-2023 ANNUAL PCP TEAM PRODUCE PRODUCTION TEAM MEMBER JAZMINE DISEASE VISIT ANNUAL PCP TEAM CHRONIC DISEASE VISIT [facility] Start: 12-03-2023 BP CONTROLLED (<130/80) BP CONTROLLE D (<130/80) [facility] Start: 12-03-2023 COVID-19 VACCINE (4 - Booster for Pfizer series) COVID-19 VACCINE (4 - Booster for Pfizer series) [facility] Immunizations Immunization Date Immunization Notes Care Provider Jeri aceves 08-24-2019 influenza virus vaccine, unspecified formulation Milly Hodge MEDICAL LAB SPECIALIST.[facility] Work Phone: [facility] 08-02-2019 tetanus toxoid, redu asif diphtheria toxoid, and acellular pertussis vaccine, adsorbed Beth Maguire MEDICAL LAB SPECIALIST.COUNTER CASER Work Phone: [facility] 08-13-2018 influenza, injectabl e, quadrivalent, contains preservative Beth Maguire MEDICAL LAB SPECIALIST.COUNTER CASER Work Phone: [facility] 07-27-2017 influenza, injectabl e, quadrivalent, contains preservative Beth Maguire MEDICAL LAB SPECIALIST.COUNTER CASER Work Phone: [facility] 2016 tetanus toxoid, redu asif diphtheria toxoid, and acellular pertussis vaccine, adsorbed Beth Maguire MEDICAL LAB SPECIALIST.COUNTER CASER Work Phone: [facility] 08-11-2016 influenza, injectabl e, quadrivalent, contains preservative Beth Maguire MEDICAL LAB SPECIALIST.COUNTER CASER Work Phone: [facility] 07-06-2013 influenza virus vaccine, unspecified formulation Beth Maguire MEDICAL LAB SPECIALIST.[facility] Work Phone: [facility] Work Phone: Payers Date Payer Category Payer Unknown [id number] 2020 Unknown [facility] PL[facility] [id number] 2020-Present [phone] [address] [place] [address] PPO [id number] 2020 Unknown [id number] Social History Date Type Detail Facility Tobacco smoking stat [facility] Never smoked tobacco [facility] Work Phone: Start: 02-11-2022 End: 09-20-2023 Alcohol intake Current drinker of alcohol (finding) [facility] Start: 05-31-2021 End: 12-03-2022 History SDOH Alcohol Frequency 2 [facility] Start: 05-31-2021 End: 12-03-2022 History SDOH Alcohol Std Drinks 1 [facility] Start: 05-31-2021 End: 12-03-2022 History SDOH Social Connections Phone 5 [facility] Start: 05-31-2021 History SDOH Social Connections Get Together 4 [facility] Start: 05-31-2021 End: 12-03-2022 History SDOH Physical Activity DPW 0 [facility] Start: 05-15-2020 Education 18 [facility] Start: 1960 Sex Assigned At Female [facility] Start: 01-30-2022 End: 05-08-2022 Exposure to SARS-CoV-2 (event) Not sure [facility] Start: 11-12-2022 End: 12-03-2022 History SDOH Social Connections Get Together 3 [facility] Start: 12-03-2022 End: 08-11-2023 History of Social function [facility] Start: 12-03-2022 End: 08-11-2023 Social connection and isolation panel [facility] Do you belong to any clubs or organizations such as restorationist groups, unions, fraternal or athletic groups, or school groups? Yes [facility] Are you now , , , , never or living with a partner? [facility] How often to you hav e a drink containing alcohol? Monthly or less [facility] How many standard dr inks containing alcohol do you have on a typical day? 1 or 2 [facility] How often do you hav e 6 or more drinks on 1 occasion? Never [facility] How hard is it for y ou to pay for the very basics like food, housing, medical care, and heating Not hard at all [facility] Do you feel stress - tense, restless, nervous, or anxious, or unable to sleep at night because your mind is troubled all the time - these days [OSQ] Only a little [facility] (I/We) worried wheth er (my/our) food would run out before (I/we) got money to buy more. Never true [facility] In the past 12 month s, was there a time when you were not able to pay the mortgage or rent on time? No [facility] Start: 03-10-2019 Gender identity Identifies as female gender (finding) [facility] Start: 03-10-2019 Sexual orientation Heterosexual (finding) [facility] Start: 08-27-2023 Alcohol Comment rare [facility] Medical Equipment Procedure Code Equipment Code Equipment Origin al Text Equipment Identifier Dates Start: 06-17-2021 End: 01-25-2023 Clinical Notes 02-11-2022 to 11-09-2023 Sanam Eller LPN - 09/30/2023 10:43 AM Keyanna Taylor APRN.CNP - 09/20/2023 2:15 PM ESTPatient InstructionsStJacquelin almaguer RN - 09/20/2023 9:39 AM ESTPatient Instructions Note Date & Type Note Facility 11-09-2023 Note HNO ID: [id number] Author: ANDREW LOPEZ, DO Service: ? Author [...] Stain intensity: moderate to strong Progesterone Receptor (AZ) Positive 51-60 % Stain intensity: moderate to [...] of no special type (ductal) Histologic Grade ([place] Histologic Score) Glandular (Acinar) / Tubular Differentiation Score 3 Nuclear Pleomorphism Score 2 Mitotic Rate Score 1 Overall Grade Grade 2 (scores of 6 or 7) Tumor Size Greatest dimension of largest invasive focus (Millimeters): 35 mm Tumor Focality Single focus of invasive carcinoma Ductal Carc (more content not included)... [facility] 11-03-2023 Note HNO ID: [id number] Author: MICHA HOYOS CNMT Service: Radiology Author [...] 10:15 PATIENT DISCHARGED TO: Ambulatory patient, left [place] department area. A Diagnostic radioactive procedure has taken place, with no further precautions necessary other than routine body substance precautions. More information regarding radiation safety can be found using this link: [email or web address] 20Diagnostic%20Nuclear%20Medicine% 20Procedures.pdf SIGNATURE: SUN Restrepo PATIENT NAME: Ramona Villegas DATE: November 03, 2023 TIME: 11:00 AM PAGER/CONTACT #: [facility] 11-01-2023 Note HNO ID: [id number] Author: JOY HUNT RT(R) Service: ? Author Type: Wire Tester Type: Progress Notes Filed: 11/01/2023 13:44 Note [...] DATE: November 01, 2023 TIME: 1:44 PM [facility] 10-29-2023 Note HNO ID: [id number] Author: JACOBY GUEVARA MD Service: ? Author Type: Physician Type: Progress Notes Filed: 10/29/2023 15:11 Note Text: Radiation Oncology - Follow Up Note PATIENT NAME: Ramona Villegas PATIENT DIAGNOSIS: Stage IB, pT2 pN2a (sn), grade 2 invasive ductal carcinoma of the left breast s/p left mastectomy and sentinel node biopsy. Positive extranodal extension. It's ER positive (91-100%, moderate to strong), AZ positive (51-60%, moderate to strong) and Her2 [...] It's ER positive (91-100%, moderate to strong), AZ positive (51-60%, moderate to strong) and Her2 [...] management options and (more content not included)... [facility] 10-28-2023 Note HNO ID: [id number] Author: GLADYS MESSINA MD Service: ? Author [...] options Anatomic stage: pathological prognostic stage IB ([id number]) invasive ductal carcinoma with ER+, AZ+, HER2 negative status. Pathway discussed: Yes Clinical [...] old lady with Pathological prognostic stage IB ([id number]) invasive ductal carcinoma with ER+, AZ+, HER2 negative status Bleeding issues requiring evacuation [...] at tumor board has been completed by Gladys Messina MD. The final recommendations / treatment plan will be made by the patient's primary health care team and patient, after full discussion as appropriate. [facility] 10-20-2023 Note HNO ID: [id number] Author: MARIA VICTORIA CAMILO PA-C Service: ? Author Type: Physician Crate Icer Type: Progress Notes Filed: 10/20/2023 15:27 Note [...] of no special type (ductal) Histologic Grade ([place] Histologic Score) Glandular (Acinar) / Tubular Differentiation [...] Examined (sentinel and non-sentinel) 4 Number of [place] Nodes Examined 4 pTNM CLASSIFICAT (more content not included)... [facility] 10-19-2023 Note HNO ID: [id number] Author: ANDREW LOPEZ, DO Service: ? Author [...] -Invasive ductal carcinoma with lobular features, provisional [place] grade 1-2 (of 3), measuring almost 12 mm in this sampling. Estrogen Receptor (ER) Positive 91-100 % Stain intensity: moderate to strong Progesterone Receptor (AZ) Positive 51-60 % Stain intensity: moderate to [...] of no special type (ductal) Histologic Grade ([place] Histologic Score) Glandular (Acinar) / Tubular Differentiation Score 3 Nuclear Pleomorphism Score 2 Mitotic Rate Score 1 Overall Grade Grade 2 (scores of 6 or 7) Tumor Size Greatest dimension of largest invasive focus (Millimeters): 35 mm Tumor Focality Single focus of invasive carcinoma Ductal Carc (more content not included)... [facility] 10-13-2023 Note HNO ID: [id number] Author: Maria Victoria Camilo PA-C Service: ? Author Type: Physician Crate Icer Type: Progress Notes Filed: 10/13/2023 11:25 AM [...] upper extremities, no evidence of lymphedema IMPRESSION: Rmaona Villegas is a 63 year old female [...] Dr. Lopez (Breast Surgeon) Ted Monroe [address] [place] [address] [facility] 10-10-2023 Note HNO ID: [id number] Author: Valente Jesus Service: Pharmacy Author Type: ? Type: Plan of Care Filed: 10/13/2023 11:12 AM Note Text: PHARMACY BEDSIDE DELIVERY SERVICE Patient Name: Ramona Villegas The marked outpatient medications were filled at [facility] pharmacy and picked up at the [...] I take this medication? Valente Jesus PAGER: [phone] October 13, 2023 11:11 AM [facility] 10-10-2023 Note HNO ID: [id number] Author: Shakir Ji MD Service: General Surgery [...] Surgery PGY-2 Nory Crocker (General Surgery) pager: [phone] Between 6p-6a or Sat/Sun, please page general surgery sap treasury consultant [phone] On exam: BP 139/56 Pulse 69 Temp [...] 0659 10/10/23 07 - 10/11/23 0659 Shift 0675-3945 8874-4526 3413-9763 24 Hour Total 4589-3677 2996-1931 5905-9547 24 Hour Total INTAKE PO 784 693 9498 PO 969 678 5692 IV 950 950 Volume (mL) (lactated ringers iv infusion) 950 950 Shift Total 5753 762 7954 OUTPUT Urine 850 359 750 2564 Void (ml) 550 568 532 7183 Output ([REMOVED] Indwelling Urinary Catheter 10/08/23 1736 Greco 16 Fr 10/09/23 0739) 300 300 Tubes 392 50 40 482 Drain/Tube Output (Drain/Tube 10/08/23 1833 Eliazar Steve Left Lower Breast Drain #1) 0 0 0 0 Drain/Tube Output (Drain/Tube 10/08/23 1833 Eliazar Steve Left Lateral;Lower Breast Drain #2) 392 50 40 482 Shift Total 1242 143 896 6823 Weight (kg) Current Medications: Current Facility-Administered Medications [...] to proceed with today?s plan of care. [facility] 10-09-2023 Note HNO ID: [id number] Author: Paulette Jade MD Service: General Surgery [...] Paulette Jade MD General Surgery Resident, PGY-1 [facility] 10-09-2023 Note HNO ID: [id number] Author: Brice Rivas MD Service: General Surgery [...] 09, 2023 TIME: 8:51 AM PAGER/CONTACT #: [phone] ETX#[id number] [facility] 10-09-2023 Note HNO ID: [id number] Author: Shakir Ji MD Service: General Surgery [...] Dr. John Ji MD General Surgery PGY-2 [facility] (General Surgery) pager: [phone] Between 6p-6a or Sat/Sun, please page general surgery sap treasury consultant [phone] On exam: BP (!) 122/47 Pulse 80 [...] 0659 10/09/23 07 - 10/10/23 0659 Shift 3585-3439 0781-6696 4825-9950 24 Hour Total 1387-9208 0546-4570 2451-2521 24 Hour Total INTAKE IV 2695 640 9603 950 950 Volume (mL) (lactated ringers 1,000 [...] 1050 2150 950 950 OUTPUT Urine 200 4599 544 7898 300 300 Void (ml) 200 200 OR Urine Output 600 600 Output ([REMOVED] Indwelling Urinary Catheter 10/08/23 1736 Greco 16 Fr 10/09/23 0739) 110 986 2362 300 300 Tubes 310 75 385 260 260 Drain/Tube Output ([REMOVED] Drain/Tube 10/07/23 1532 [facility] Cesar Left Lower Breast Drain #1 10/08/23 174) 130 130 Drain/Tube Output ([REMOVED] Drain/Tube 10/07/23 1532 [facility] Cesar Left Breast Drain #2 10/08/23 174) 180 180 Drain/Tube Output (Drain/Tube 10/08/23 183 Eliazar Steve Left Lower Breast Drain #1) 15 15 0 0 Drain/Tube Output (Drain/Tube 10/08/23 1833 Eliazar Steve Left Lateral;Lower Breast Drain #2) 60 60 260 260 Blood 50 50 Estimated Blood loss 50 50 Shift Total 510 5260 125 2784 560 560 Weight (kg) Current Medications: Current [...] with the multidisc (more content not included)... [facility] 10-08-2023 Note HNO ID: [id number] Author: Janie Castro APRN.MANAGER PRINTING Service: Anesthesiology Author Type: Nurse Counter Stitcher Type: Anesthesia Procedure Notes Filed: 10/08/2023 5:47 [...] Imaging Guidance Used: No SIGNATURE: Janie Floyd APRN.MANAGER PRINTING PATIENT NAME: Ramona Villegas DATE: October 08, 2023 TIME: 5:47 PM CSN: [id number] [facility] 10-08-2023 Note HNO ID: [id number] Author: Janie Castro APRN.MANAGER PRINTING Service: Anesthesiology Author Type: Nurse Counter Stitcher Type: Anesthesia Procedure Notes Filed: 10/08/2023 5:47 PM Note Text: ANESTHESIOLOGY PROCEDURE NOTE Airway General Information Procedure Start Time/Medication Administration: 10/08/2023 5:35 PM Patient location during procedure: OR Staffing MANAGER PRINTING: Janie Castro APRN.MANAGER PRINTING Performed by: ALIYA Indications and Patient Condition [...] 1 Airway not difficult SIGNATURE: Janie Floyd APRN.MANAGER PRINTING PATIENT NAME: Ramona Villegas DATE: October 08, 2023 TIME: 5:46 PM CSN: [id number] [facility] 10-08-2023 Note HNO ID: [id number] Author: Harper Lopez DO Service: General Surgery [...] pt symptomatic. Harper Lopez DO Breast Surgeon [facility] 10-08-2023 Note HNO ID: [id number] Author: Brice Rivas MD Service: General Surgery [...] for take-back to OR Brice Rivas MD [facility] 10-08-2023 Note Education (BELEN) RAMONA VILLEGAS ([id number]) 1960 F Date Time Provider Department 10/08/23 EMY BURKETT Reason for Visit: Education Of Patient/family [454] During your visit today, we recorded the [...] Encounter Status:Closed by EMY BURKETT on 10/08/23 [facility] 10-08-2023 Note HNO ID: [id number] Author: Emy Burkett RN Service: ? Author [...] for post-op follow-up assessment. Emy Burkett RN [facility] 10-08-2023 Note HNO ID: [id number] Author: Raya Sosa MD Service: General Surgery [...] 63 year old female with history of ZEYNPE, HTN who is now s/p left simple [...] , PT , INR in the last 51927 hours. Cardiac Enzymes Intake and Output: Date 10/07/23 07 - 10/08/23 0659 10/08/23 07 - 10/09/23 0659 Shift 7048-1095 8037-2374 8932-0563 24 Hour Total 2859-8302 2770-7007 5722-1625 24 Hour Total INTAKE IV 210 1000 [...] 310 310 Drain/Tube Output (Drain/Tube 10/07/23 1532 [facility] Cesar Left Lower Breast Drain #1) 190 70 260 130 130 Drain/Tube Output (Drain/Tube 10/07/[address] [place] [address] Cesar Left Breast Drain #2) 115 110 [...] to proceed with today?s plan of care. [facility] 10-08-2023 Note HNO ID: [id number] Author: Chintan Emery MD Service: General Surgery [...] during weekdays: [facility] (Trauma, General Surgery): [phone] [facility] (Bariatrics, HPB) : [phone] [facility]: [phone] [facility]: [phone] [facility]: [phone] For team paging after 6PM or on weekend / holidays: [phone] [facility] 10-07-2023 Note HNO ID: [id number] Author: Digna Noel APRN.MANAGER PRINTING Service: Nursing Author Type: Nurse Counter Stitcher Type: Anesthesia Procedure Notes Filed: 10/07/2023 2:34 PM Note Text: ANESTHESIOLOGY PROCEDURE NOTE Airway General Information Procedure Start Time/Medication Administration: 10/07/2023 1:57 PM Patient location during procedure: OR 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 Staffing Anesthesiologist: Sarah Jameson MD MANAGER PRINTING: Digna Noel APRN.MANAGER PRINTING Performed by: MANAGER PRINTING Indications and Patient Condition Indications for airway [...] Dentition same as preop SIGNATURE: Digna Noel APRN.MANAGER PRINTING PATIENT NAME: Ramona Villegas DATE: October 07, 2023 TIME: 2:32 PM CSN: [id number] [facility] 10-07-2023 Note HNO ID: [id number] Author: Michael Mosley, Nuclear Tech Service: Nuclear Medicine Author Type: Wire Tester Type: Progress Notes Filed: 10/07/2023 2:11 PM [...] [email or web address]%20Pro tection %[email or web address]-%20Diagnostic%20Nuclear%20Medi cine%20Procedures.pdf SIGNATURE: Michael Mosley [employer] PATIENT NAME: Ramona Villegas DATE: October 07, 2023 TIME: 2:09 PM PAGER/CONTACT #: [facility] 10-07-2023 Note Education (GENSF) RAMONA VILLEGAS ([id number]) 1960 F Date Time Provider Department 10/07/23 [...] Encounter Status:Closed by EMY BURKETT on 10/07/23 [facility] 10-07-2023 Note HNO ID: [id number] Author: Emy Burkett, RN Service: ? Author [...] and emotional support needs. Emy Burkett RN [facility] 09-30-2023 Note [facility] RAM[facility] VILLEGAS ([id number]) 1960 F Date Time Provider Department 09/30/23 SANAM ELLER [facility] Reason for Visit: Patient Education [91] [...] Encounter Status:Closed by SANAM ELLER on 09/30/23 [facility] 09-30-2023 Nurse Note AMBULATORY PATIENT EDUCATION NOTE [...] By: Sanam Eller LPN In Department: [facility] Time spent on patient education: 20 minutes. documented in this encounter [facility] 09-20-2023 History and physical note HISTORY [...] large neck Non-male patient STOP-Bang Score: 7 [id number] Score: Age: <65 Sex: female CHF history: No Hypertension history: Yes Stroke/TIA/thromboembolism history: No Vascular disease history: No Diabetes history: No [id number] Score: 2 ARISCAT Score: Age: 51-80 Preoperative [...] and consent discussed: yes. Patient / Responsible Republican agrees to proceed: yes Patient / Surrogate [...] 1:00, [address] appear normal. ER+AZ+HER2- [id number] RIGHT breast cluster of calcifications upper inner [...] analgesics as needed). Negative for: cerebral palsy, UNDERWRITER SOLICITATION DIRECTOR tumor, multiple sclerosis, Parkinson's disease, peripheral neuropathy, [...] pain, CHF, congenital heart defect, DVT/PE, recent NH, murmur/valvular heart disease, PVD, open heart surgery and valve surgery. GI: No history of GI symptoms or problems. No history of esophageal varices, recent ascites, or ETOH greater than 2 drinks per day. : Positive for: nephrolithiasis (hx stones, s/p lithotripsy). Negative for: urinary incontinence, renal failure and urinary tract infection. ANIMAL BREEDER: Negative for abnormal vaginal bleeding, abnormal vaginal [...] or any previous visit (from the past 07102 hour(s)). Prepared for Surgery: optimally prepared for [...] PM PAGER/CONTACT #: documented in this encounter [facility] 09-20-2023 Instructions Keyanna Ramirez APRN.CNP - 09/20/2023 2:15 PM EST PATIENT PREOPERATIVE INSTRUCTIONS Harper Lopez DO has scheduled you for your procedure at this surgery center: [facility]: [phone] --[id number] [address]. Please check in on the 1st floor [...] Procedures: - YOU MUST HAVE A RESPONSIBLE SAFETY LEADER TAKE YOU HOME. A AUTO HEADLIGHT MECHANIC OR DISTRIBUTION SYSTEMS SUPERINTENDENT CANNOT BE MADE A RESPONSIBLE SAFETY LEADER. - We recommend that a responsible person [...] Advance Directive, please fax a copy to [phone] or email to for it to be [...] and scanned into your chart that day. Keyanna Ramirez APRN.CNP documented in this encounter [facility] 09-20-2023 Note HNO ID: [id number] Author: Andrew Lopez, DO Service: ? Author [...] -Invasive ductal carcinoma with lobular features, provisional [place] grade 1-2 (of 3), measuring almost 12 mm in this sampling. Estrogen Receptor (ER) Positive 91-100 % Stain intensity: moderate to strong Progesterone Receptor (AZ) Positive 51-60 % Stain intensity: moderate to [...] daily at bedti (more content not included)... [facility] 09-20-2023 Note HNO ID: [id number] Author: Jacoby Guevara MD, MD Service: ? Author Type: Physician Type: Progress Notes Filed: 09/21/2023 2:35 PM Note Text: Radiation Oncology - New Patient/Consult Note PATIENT NAME: Ramona Villegas PATIENT REQUESTING PROVIDER: Dr. Harper Lopez DIAGNOSIS: Stage IB, cT2 cN0, grade 1-2 invasive ductal carcinoma of the left breast. It's ER positive (91-100%, moderate to strong), AZ positive (51-60%, moderate to strong) and Her2 [...] It's ER positive (91-100%, moderate to strong), AZ positive (51-60%, moderate to strong) and Her2 [...] Hypertension ZEYNEP (obstructive sleep apnea) [facility] Overweight(278.02) Post-menopausal Prior radiation therapy, collagen vascular disease, or inflammatory bowel disease: No Any implanted or external electric devices? No status: Post-menopausal. PAST SURGICAL HISTORY Procedure Laterality (more content not included)... [facility] 09-20-2023 Nurse Note Radiation Therapy - Nursing Note (Consult) PATIENT NAME: Ramona Villegas PATIENT September 20, 2023 [facility] FACILITY/LOCATION: [place] Chief Complaint: consult Reason for visit: Consult. Referring physician: Internal provider Dr Lopez Subjective Data: no complaints Additional Data Do you want to see a Neckties Painter? No Are you interested in information about fertility? No Status: Post-menopausal Stress Scale: On a scale of 0 to 10, what number best describes how much distress you have experienced in the past week?(0 being no distress and 10 being extreme distress) 1 Social work notified: no SIGNED by: Jacquelin Moseley RN documented in this encounter [facility] 09-20-2023 History of Present illness Narrative Radiation Oncology - New Patient/Consult Note PATIENT NAME: Ramona Villegas PATIENT REQUESTING PROVIDER: Dr. Harper Lopez DIAGNOSIS: Stage IB, cT2 cN0, grade 1-2 invasive ductal carcinoma of the left breast. It's ER positive (91-100%, moderate to strong), AZ positive (51-60%, moderate to strong) and Her2 [...] It's ER positive (91-100%, moderate to strong), AZ positive (51-60%, moderate to strong) and Her2 [...] Hypertension ZEYNEP (obstructive sleep apnea) 11/15/2013 DME [facility] for AutoPAP Overweight(278.02) Post-menopausal Prior radiation therapy, [...] It's ER positive (91-100%, moderate to strong), AZ positive (51-60%, moderate to strong) and Her2 [...] by: Jacoby Guevara MD cc: Ted Monroe [address] [place] [address] Harper Lopez [address] [facility] [address] documented in this encounter [facility] 09-17-2023 Miscellaneous Notes Spoke to patient, confirmed her surgery date and appointments related to her procedure with Dr. Lopez on 10/07 . documented in this encounter [facility] 09-16-2023 Miscellaneous Notes PT calling to inform she would like to proceed with a Mastectomy with the tentative date given of 10/07. She will cancel her biopsy appt on October 20 . Sanam Eller LPN documented in this encounter [facility] 09-16-2023 Note HNO ID: [id number] Author: Harper Lopez, DO Service: ? Author [...] 1:00, [address] appear normal. ER+AZ+HER2- [id number] RIGHT breast cluster of calcifications upper inner aspect, posterior depth, stereo bx recommended - performed on 09/09/23, benign and concordant - 6 month MMG recommended to demonstrate stability Breast MRI was performed yesterday Patient is here to review the findings and to discuss her surgical options. Presents with her son IMAGIN09/09/23 Correlation is made to exams dated: 08/03/2023 ultrasound and 08/03/2023 mammogram - [facility]. A stereotactic guided biopsy was performed for [...] location, twelve specimens were obtained using the Silversky system. The patient received additional local anesthetic [...] to exams dated: 09/09/2023 stereotactic biopsy - [facility], 08/11/2023 mammogram, 08/03/2023 ultrasound, 08/03/2023 mammogram, 07/02/2023 mammogram, and 06/12/2022 mammogram - [facility]. MRI images were obtained with a dedicated breast coil. TECHNIQUE: Axial STIR and axial T1 weighted imaging was carried out follow by axial T1- with fat saturation imaging both before and after IV administration of 20 ml of Dotarem. Subsequently, complex volumetric analysis requiring post processing performed using a semi-automated software Patient-[employer] Institute[employer], on an independent workstation by the physician, [...] and slightly medi (more content not included)... [facility] 09-16-20[facility] History of Present illness Narrative REASON FOR TODAY'S VISIT: Patient presents with: Established Patient: regroup HISTORY of PRESENT ILLNESS: Ramona Villegas is a 63 year old female who I initially saw in the office 08/27/23 with a LEFT breast 2.5 cm x 2.4 cm x 1.5 cm mass @ 1:00, [address] appear normal. ER+AZ+HER2- [id number] RIGHT breast cluster of calcifications upper inner aspect, posterior depth, stereo bx recommended - performed on 09/09/23, benign and concordant - 6 month MMG recommended to demonstrate stability Breast MRI was performed yesterday Patient is here to review the findings and to discuss her surgical options. Presents with her son IMAGIN09/09/23 Correlation is made to exams dated: 08/03/2023 ultrasound and 08/03/2023 mammogram - [facility]. A stereotactic guided biopsy was performed for [...] location, twelve specimens were obtained using the Silversky system. The patient received additional local anesthetic [...] to exams dated: 09/09/2023 stereotactic biopsy - [facility], 08/11/2023 mammogram, 08/03/2023 ultrasound, 08/03/2023 mammogram, 07/02/2023 mammogram, and 06/12/2022 mammogram - [facility]. MRI images were obtained with a dedicated breast coil. TECHNIQUE: Axial STIR and axial T1 weighted imaging was carried out follow by axial T1- with fat saturation imaging both before and after IV administration of 20 ml of Dotarem. Subsequently, complex volumetric analysis requiring post processing performed using a semi-automated software Patient-Centered [employer], on an independent workstation by the physician, [...] bx has been recommended. LN appear normal. ER+AZ+HER2- [id number] PLAN: We reviewed the imaging and recommendation [...] 09/20/2023 9:30 AM Jacoby Guevara MD, RADTWS [facility] 09/20/2023 11:10 AM Andrew Lopez DO HEMAWS [facility] 10/20/2023 12:30 PM PROCEDURE MAMMO MAIN RADMN Mn A Bldg 12/28/2023 10:45 AM Dianne Toledo [facility] GMTAUS Mn CA Bldg 12/28/2023 2:40 PM Ted Monroe DO [facility] cc: Ted Monroe [address] [place] [address] documented in this encounter [facility] 09-16-2023 Nurse Note Regroup Did patient [...] Drug use: No documented in this encounter [facility] 09-15-2023 Note HNO ID: [id number] Author: Sandra Bennett RT(R) Service: Radiology Author [...] DATE: September 15, 2023 TIME: 11:09 AM [facility] 09-15-2023 History of Present illness Narrative Radiology [...] TIME: 11:09 AM documented in this encounter [facility] 09-13-2023 Miscellaneous Notes Called patient to notify the breast pathology results were benign per Dr. Martinez. Informed patient a 6 month follow up is recommended. Also to continue follow up with Dr. Lopez. Patient agrees with the plan. documented in this encounter [facility] 09-09-2023 Note HNO ID: [id number] Author: Destiney Mckinney, RT(R) Service: ? Author Type: Technologist Type: Patient Education Filed: 09/09/2023 10:31 AM Note Text: Written post procedure instructions were given to the patient. [facility] 09-08-2023 Miscellaneous Notes Spoke with pt and [...] Andrew Lopez DO documented in this encounter [facility] 09-06-2023 Miscellaneous Notes Patient has been [...] Last refill: 06/2023 documented in this encounter [facility] 09-06-2023 Miscellaneous Notes Images from the [...] Lopez. Harper Emerson documented in this encounter [facility] 08-27-2023 Note HNO ID: [id number] Author: Sarah Link MD Service: ? Author Type: Physician Type: Progress Notes Filed: 08/27/2023 3:03 PM Note Text: Assessment interrupted by medical provider, unable to complete nursing assessment. Itzel Hanna MA [facility] 08-27-2023 Note HNO ID: [id number] Author: Sarah Link MD Service: ? Author [...] then left breast biopsy on 08/11 Results [facility] by means of stereotactic core biopsy of Left breast on. The pathology report showed Infiltrating Ductal Carcinoma Grade I- II, ER positive, AZ positive, HER2 non-amplified. 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 [facility] 08-27-2023 Note HNO ID: [id number] Author: Harper Lopez, DO Service: ? Author Type: Physician Type: Progress Notes Filed: 09/04/2023 5:25 AM Note Text: NEW BREAST CANCER - INITIAL SURGICAL VISIT SERVICE DATE: 08/27/2023 REFERRING PROVIDER: Dr. King Monroe [address] [facility] [address] Consult requested for an opinion regarding the [...] lobular features, Grade I- II, ER positive, AZ positive, HER2 non-amplified. 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 [facility] 08-27-2023 History of Present illness Narrative [...] then left breast biopsy on 08/11 Results [facility] by means of stereotactic core biopsy of Left breast on. The pathology report showed Infiltrating Ductal Carcinoma Grade I- II, ER positive, AZ positive, HER2 non-amplified. 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 King Monroe [address] [facility] [address] Consult requested for an opinion regarding the [...] lobular features, Grade I- II, ER positive, AZ positive, HER2 non-amplified. 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 The breasts are heterogeneously dense, which may [...] mammogram, 06/12/2022 mammogram, and 05/27/2021 mammogram - [facility]. The breasts are heterogeneously dense, which may [...] mammogram, 06/12/2022 mammogram, and 05/27/2021 mammogram - [facility]. Color flow and real-time ultrasound of the [...] Receptor (ER) Positive 91-100 % Progesterone Receptor (AZ) Positive 51-60 % HER2 (ERBB2) IMMUNOHISTOCHEMISTRY ASSAY Interpretation: NEGATIVE for HER2 (ERBB2) Expression Score: 1+ GENETIC TESTING: discussed that consult to be placed. SOZO LEFT arm 0.9 ASSESSMENT: Ramona Villegas is a 62 year old female with a LEFT breast 2.5 cm x 2.4 cm x 1.5 cm mass @ 1:00, [address] appear normal. ER+AZ+HER2- [id number] RIGHT breast cluster of calcifications upper inner [...] further questions or concerns. Harper Lopez DO, [facility] Breast Surgeon [facility] Cc: DO Dr. Jessica Tavera Dr., Dr. documented in this encounter [facility] 08-25-2023 Miscellaneous Notes Tristian, Called patient to offer an appointment with Dr. Lopez on 08/27/2023, patient accepted, scheduled. documented in this encounter [facility] 08-25-2023 Miscellaneous Notes Tristian, Received a [...] results. Thank you documented in this encounter [facility] 08-23-2023 Miscellaneous Notes I see that she is referred to the breast surgeons per preference/ recommendations from Dr. Dupree I am familiar with the breast center surgeons and she will have great care Please recommend Ted Monroe DO Images from the original note were not included. Please see pt [employer] message- Ramona Rivera Wstr Famp My Chart Rx Pool (supporting Ted Monreo DO) 15 hours ago (7:09 PM) [place] [...] help is appreciated. documented in this encounter [facility] 08-20-2023 Note HNO ID: [id number] Author: Corwin Dupree MD Service: ? Author [...] her to the breast surgeons up in [place]. [facility] 08-16-2023 Miscellaneous Notes Turned into KEYONNA Lombardo documented in this encounter [facility] 08-13-2023 Note HNO ID: [id number] Author: Jm Mcguire MD Service: ? Author Type: Physician Type: Progress Notes Filed: 08/13/2023 5:27 PM Note Text: Agree with recommendation for stereotactic biopsy of the heterogeneous calcifications in the right breast upper inner aspect posterior depth. An order has been placed. This is not a billable event. [facility] 08-13-2023 History of Present illness Narrative Agree with recommendation for stereotactic biopsy of the heterogeneous calcifications in the right breast upper inner aspect posterior depth. An order has been placed. This is not a billable event. documented in this encounter [facility] 08-13-2023 Note HNO ID: [id number] Author: Corwin Dupree MD Service: ? Author [...] tolerated the procedure sterile dressings were applied. [facility] 08-13-2023 History of Present illness Narrative Preoperative [...] Jessi Adams RN documented in this encounter [facility] 08-11-2023 Note HNO ID: [id number] Author: Halley Queen, Geminare[employer] Terracotta Service: ? Author Type: Wire Tester Type: Progress Notes Filed: 08/11/2023 1:41 PM [...] DATA: Not applicable SIGNED BY: Halley Queen [employer] August 11, 2023 1:40 PM [facility] 08-11-2023 History of Present illness Narrative Radiology [...] DATA: Not applicable SIGNED BY: Halley Queen [employer] August 11, 2023 1:40 PM documented in this encounter [facility] 08-11-2023 Note HNO ID: [id number] Author: Jessi Adams RN Service: ? Author [...] Visit completed when applicable. Jessi Adams RN [facility] 08-11-2023 Instructions Jessi Adams RN - 08/11/2023 12:23 PM EDT The following instructions are important for you related to your office visit today with the [facility] General Surgeons. Instructions After OFFICE BASED BREAST [...] you should contact our office immediately @ [phone] and ask to be transferred to the General Surgery department. documented in this encounter [facility] 08-05-2023 Miscellaneous Notes Patient was scheduled with general surgery for evaluation of abnormal mammogram. Stanley Prescott PA-C documented in this encounter [facility] 08-03-2023 Note HNO ID: [id number] Author: Corwin Dupree MD Service: ? Author [...] Hypercholesteraemia Hypertension ZEYNEP (obstructive sleep apnea) 11/15/2013 [facility] for AutoPAP Overweight(278.02) Post-menopausal PAST SURGICAL HISTORY [...] by the nurse (more content not included)... [facility] 08-03-2023 Note HNO ID: [id number] Author: Veronica Ulloa RDMS Service: ? Author Type: Regional Vice President Life Sales Type: Progress Notes Filed: 08/03/2023 1:26 PM [...] RDMS RVT August 03, 2023 1:25 PM [facility] 08-03-2023 Note HNO ID: [id number] Author: Darshana White [employer] Service: ? Author Type: Wire Tester Type: Progress Notes Filed: 08/03/2023 9:45 AM [...] Eddie Powers August 03, 2023 8:54 AM [facility] 08-03-2023 History of Present illness Narrative [...] 2023 1:25 PM documented in this encounter [facility] 08-03-2023 History of Present illness Narrative [...] 2023 8:54 AM documented in this encounter [facility] 07-22-2023 Miscellaneous Notes The following approved medication requests have been transmitted electronically. Requested Prescriptions Signed Prescriptions Disp Refills hydroCHLOROthiazide 25 mg tablet 90 tablet 1 Sig: take 1 tablet daily Authorizing Provider: SHAR BOLANOS MD Patient last visit 12/03/2022 Follow up appointment scheduled 12/28/2023 Xena Dawson Ma documented in this encounter [facility] 07-02-2023 Note HNO ID: [id number] Author: Darshana White Mammo Tech Service: ? Author Type: Wire Tester Type: Progress Notes Filed: 07/02/2023 8:27 AM [...] Eddie Powers July 02, 2023 8:09 AM [facility] 07-02-2023 Miscellaneous Notes Patient active MyChart. Patient notified via [employer] message to the previous [employer] message. Kimberly Rosas MA Called and left a detailed voicemail notifying patient of providers message. Hospital phone number was left for patient to call and either set up exam with Dr Monroe or get a referral to ANIMAL BREEDER. Padmini Guidry, RN I am okay with helping manage her Pap/pelvic exams or she can be seen by ANIMAL BREEDER, whichever she is more comfortable. Not sure when she is due for her next pap etc Ted Monroe DO Due to [facility] closing., patient is transferring [facility] records to [facility]. Is patient to establish with a [facility]IMAL BREEDER or okay to follow PCP? Please advise & place referral if needed to establish with specialty. Kimberly Rosas MA documented in this encounter [facility] 07-02-2023 History of Present illness Narrative [...] 2023 8:09 AM documented in this encounter [facility] 06-23-2023 Miscellaneous Notes Patient phones requesting refills as follows: Requested Prescriptions Pending Prescriptions Disp Refills rosuvastatin (CRESTOR) 10 mg tablet 90 tablet 0 Sig: Take 1 tablet by mouth daily at bedtime. BAHMAN-2/23/23 Labs-11/14/22 NOV-12/28/23 Please review and advise. Sherron Vilelgas LPN documented in this encounter [facility] 05-25-2023 Miscellaneous Notes Mammogram ordered. Danilo order pended Mignon Lombardo documented in this encounter [facility] 03-11-2023 Miscellaneous Notes Bahman--12/03/22 Nov--nothing scheduled Last refill--12/03/22 90 with 0 refills Last refill--11/14/22 documented in this encounter [facility] 01-27-2023 Miscellaneous Notes Resent to [facility]. Amparo Robledo APRN.COUNTER CASER Patient phones requesting refills as follows: Requested Prescriptions Pending Prescriptions Disp Refills Syringe with Needle, Safety 3 mL 23 gauge x 1 12 Each 0 Si Each once every month. With B-12 injections Luerlock BAHMAN-12/03/22 Labs-11/17/22 NOV-none Please review and advise. Sherron Villegas LPN documented in this encounter [facility] 01-25-2023 Miscellaneous Notes Patient phones requesting [...] mg 30 qty 30-day supply Rx Number [id number]# [id number] Prescription details Prescriber: Amparo Greene New Fill Canceled Alert Icon Your prescriber is requesting that you call their office before we fill your HYDROCHLOROTHIAZIDE TABS 25MG prescription. Please contact your prescriber to discuss and ask them to e - prescrib documented in this encounter [facility] 01-01-2023 Miscellaneous Notes Faxed order, office notes, demographics, and sleep study to: DME name: [facility] fax: [phone] DME ph: documented in this encounter [facility] 12-31-2022 Miscellaneous Notes Orders faxed to [facility] [place] via [employer]. Cassidy Gordon LPN Order completed per request. Order pended for Auto Pap. Please review and advise. Thank you. NORBERT Baldwin TC to patient with results, verbalized understanding, states she has been using [facility] in [place] and would like orders sent there. fax #[phone] Cassidy Gordon LPN ----- Message from Jefry [...] Jefry Bertrand MD documented in this encounter [facility] 12-30-2022 Miscellaneous Notes TC to pt [...] Jefry Bertrand MD documented in this encounter [facility] 12-21-2022 Note HNO ID: [id number] Author: Naima DuttonT Service: ? Author Type: ? Type: Progress Notes Filed: 12/21/2022 6:37 AM Note Text: Sleep Study Check-In Documentation Date: December 21, 2022 Name: Ramona Villegas Patient was accompanied by Self. Location: [place] Latex allergy: No Tape allergy: No Current medications were reviewed with the patient:Yes Sleep aid taken by patient for the sleep study: [place] of sleep aid: Not Applicable Procedure was explained to the patient and all questions were answered. PAP treatment discussed and shown to patient: Yes If PAP used enter mask info: Mask Name Mirage Quattro Air Make Resmed MaskTypeFull Face Mask SizeSmall Chin Sharp Used No ------- Knowledge Program (KP): KP was not completed in sciencebite by patient and accepted Study type: PAP titration Adverse Event: No (If yes create a new abstract) Comments: Patient was advised to follow up with their ordering provider regarding test results [facility] 12-21-2022 History of Present illness Narrative Sleep Study Check-In Documentation Date: December 21, 2022 Name: Ramona Villegas Patient was accompanied by Self. Location: [place] Late[place] allergy: No Tape allergy: No Current medications were reviewed with the patient:Yes Sleep aid taken by patient for the sleep study: [place] of sleep aid: Not Applicable Procedure was explained to the patient and all questions were answered. PAP treatment discussed and shown to patient: Yes If PAP used enter mask info: Mask Name Mirage Quattro Air Make Resmed MaskTypeFull Face Mask SizeSmall Chin Sharp Used No Knowledge Program (KP): KP was not completed in sciencebite by patient and accepted Study type: PAP titration Adverse Event: No (If yes create a new abstract) Comments: Patient was advised to follow up with their ordering provider regarding test results Naima Perezummie Poly-T documented in this encounter [facility] 12-10-2022 Miscellaneous Notes The following approved [...] Harper Archibald RN documented in this encounter [facility] 12-03-2022 Note HNO ID: [id number] Author: Amparo Robledo APRN.ELIANA Service: ? Author Type: Nurse Practitioner Type: Progress Notes Filed: 12/03/2022 3:29 PM Note Text: Chief Complaint Patient presents with: Physical HPI Ramona Villegas is a 62 year old female who presents here today for Above Complaints.. Olesya is an established patient of Dr. eFr DO. She is a new patient to [...] Hypercholesteraemia Hypertension ZEYNEP (obstructive sleep apnea) 11/15/2013 [facility] for AutoPAP Overweight(278.02) Post-menopausal Previous Surgical History [...] AutoPAP 10-20 cmH2O (more content not included)... [facility] Miscellaneous Notes Patient active MyChart. Patient notified via SocialTaggt message. Kimberly Rosas MA Will proceed with in lab titration. Jefry Bertrand MD documented in this encounter [facility] 11-09-2022 Miscellaneous Notes FLUoxetine (PROZAC) 20 mg capsule [Amparo Robledo] Patient Comment: Prescription runs out the same time as sceduled appointment, but I worry about a break while waiting for the mail. Can I have a stop-gap supply prescribed? documented in this encounter [facility] 11-02-2022 History of Present illness Narrative Sleep Study Check-In Documentation Date: November 02, 2022 Name: Ramona Villegas Comments: HST was returned in working order with all sleep questionnaires Diana Lzi PSS Nomad# [id number] Mail out date:10/26/22 [employer] Shipping #:[id number] [employer] Return #:[id number] October 26, 2022 An order has been received for Home Sleep Apnea Test (HSAT) from [facility] Staff/Activity Aid Staff Orders. Visit prep complete - Please refer to the sleep study order (under procedures tab) for protocol details and special instructions. The sleep study is scheduled for 10/27/22. Insurance: Payor: [facility] / Plan: [place] P[place] CONNECT GENERIC / Product Type: PPO / Payer/Plan Subscr Sex Relation Sub. Ins. ID Effective Group Num 1. [place] [employer] RAMONA WINN 1960 Female Self [id number] 10/11/21 [address], [place] [address] Maddi Fleming documented in this encounter [facility] 10-19-2022 Miscellaneous Notes Please clarify as to why this order was not completed through the [facility] sleep dept. Jefry Berrtand MD Clarified with Christi Moreland, needs new HSAT order. Pended new order. Please file. Kimberly Rosas MA documented in this encounter [facility] 10-15-2022 Miscellaneous Notes Pt notified of [...] Jeannie Turk LPN documented in this encounter [facility] 10-15-2022 Miscellaneous Notes Another phone note [...] Sherron Villegas LPN documented in this encounter [facility] 06-12-2022 Miscellaneous Notes June 12, 2022 PID: [id number] Ramona Villegas [address] [place] [address] Dear Ms. Villegas, We are pleased to [...] report will be kept on file at [facility] as part of your permanent medical record and are available for your continuing care. Thank you for allowing us to help in meeting your health care needs. Sincerely, Dr. Aguilar Interpreting Radiologist [facility] (Normal over 40) documented in this encounter [facility] 05-25-2022 Miscellaneous Notes The following approved [...] once daily. Authorizing Provider: AMPARO DE LEON APRN.COUNTER CASER Last Office Visit: 06/04/2021 Future Office Visit: Non3 Last Medication Refill: Cholecalciferol 06/04/2021 90 cap 3 refill Metoprolol 06/04/2021 90 cap 3 refill Date of Last Labs: 05/31/2021 documented in this encounter [facility] 05-04-2022 Miscellaneous Notes Patient phones requesting refills as follows: Pending Prescriptions Disp Refills CYANOCOBALAMIN (VIT B-12) 1,000 MCG/ML INJECTION SOLUTION 3 mL 3 Sig: Inject 1 mL intramuscularly once every month. BOGDAN: No BAHMAN-06/04/21 NOV-05/22/21 NOV-none med filled 07/08/21 Please review and advise. Sherron Villegas LPN documented in this encounter [facility] 03-30-2022 Miscellaneous Notes Please call patient - colonoscopy was normal - I recommend repeat colonoscopy in 10 years - her last two were normal. Please change colonoscopy screening from 5 to 10 years Beth Maguire APRN.COUNTER CASER documented in this encounter [facility] 03-25-2022 Instructions Madonna Romero MD - [...] sleep nurse practitioner. documented in this encounter [facility] 03-24-2022 Note HNO ID: [id number] Author: Jefry Bertrand Jr., MD Service: ? Author Type: Physician Type: Progress Notes Filed: 04/06/2022 11:45 AM Note Text: [facility] New Patient Evaluation PATIENT NAME: Ramona Villegas DATE OF SERVICE: March 24, 2022 CONSULTING PROVIDER: Ted Monroe [address] [facility] [address] REASON FOR CONSULT: Ted Monroe sends the [...] refer to records. The patient moved from [place] to [place]. The patient current machine was both in 2013, and her machine from her insurance was broken in 2013 and she bought a new machine [id number]. chine CPAP information: Machine name : Pankaj DME company: [employer] [place] Mask: Fullface mask The patient compliance report [...] - ZEYNEP (obstructive sleep apnea) 11/15/2013 D[facility] [employer] for AutoPAP - Overweight(278.02) - Post-menopausal PAST [...] Injury of Right (more content not included)... [facility] 03-24-2022 History of Present illness Narrative Images from the original note were not included. [facility] New Patient Evaluation PATIENT NAME: Ramona Villegas DATE OF SERVICE: March 24, 2022 CONSULTING PROVIDER: Ted Monroe [address] [facility] [address] REASON FOR CONSULT: Ted Monroe sends the [...] refer to records. The patient moved from [place] to [place]. The patient current machine was both in 2013, and her machine from her insurance was broken in 2013 and she bought a new machine [id number]. chine CPAP information: Machine name : Sarika DME company: [employer] [place] Mask: Fullface mask The patient compliance [...] Dr. Bertrand. Madonna Romero MD Sleep Fellow [facility] STAFF PHYSICIAN NOTE OF PERSONAL INVOLVEMENT [...] visit: Patient and Physician and Fellow via [employer]. Consent for this visit received from patient. [...] which included preparing to see the patient, [id number] patient care, completing clinical documentation, obtaining and/or reviewing separately obtained history, performing a medically appropriate examination, counseling and educating the patient/family/caregiver, ordering medications, tests, or procedures, communicating with other HCPs (not separately reported) and communicating results to the patient/family/caregiver. documented in this encounter [facility] 03-23-2022 Miscellaneous Notes We have yet [...] Fortino Parekh CMA documented in this encounter [facility] 03-23-2022 Nurse Note Patient passing flatus [...] Roselyn Miranda RN documented in this encounter [facility] 03-23-2022 History and physical note NEW [...] Procedure Laterality Date [facility]2013 Colonoscopy- 3 small polyps COLONOSCOPY [...] with more than 50% of the total zxrv-jb-tiff time of the visit in counseling / coordination of care. I have confirmed and edited as necessary, the PFSH and ROS obtained by others. Beth Maguire APRN.COUNTER CASER UPDATED HISTORY AND PHYSICAL EXAMINATION SERVICE DATE: [...] TIME: 10:41 AM documented in this encounter [facility] 03-23-2022 Miscellaneous Notes NEW VIRTUAL VISIT [...] Hypercholesteraemia Hypertension ZEYNEP (obstructive sleep apnea) 11/15/2013 [facility] for AutoPAP Overweight(278.02) Post-menopausal PAST SURGICAL HISTORY PAST SURGICAL HISTORY Procedure Laterality Date COLONOSCOP W/ OR W/O [facility] SPEC 09/04/2013 Colonoscopy- 3 small [...] with more than 50% of the total tiqk-lj-uhrc time of the visit in counseling / coordination of care. I have confirmed and edited as necessary, the PFSH and ROS obtained by others. Beth Maguire APRN.COUNTER CASER UPDATED HISTORY AND PHYSICAL EXAMINATION SERVICE DATE: [...] TIME: 10:40 AM documented in this encounter [facility] 02-13-2022 Miscellaneous Notes Patient is scheduled at [facility] on 03/23/[address] Dupree for a colonoscopy. DX: Screening for colon cancer [Z12.11 (ICD-10-CM)] Verbal and written instructions given. documented in this encounter [facility] 02-11-2022 History of Present illness Narrative [...] with more than 50% of the total dbji-xb-mdvh time of the visit in counseling / coordination of care. I have confirmed and edited as necessary, the PFSH and ROS obtained by others. Beth Maguire APRN.CNP February 11, 2022 11:21 AM documented in this encounter [facility] 02-11-2022 Instructions Beth Maguire APRN.CNP - [...] If you do not have a responsible canal driver (family member or friend) with you [...] exam. 3 09/2019 documented in this encounter [facility] Diagnosis Screening for colon cancer Special screening for malignant neoplasms, colon [facility] Diagnosis ZEYNEP (obstructive sleep apnea)- Primary Obstructive sleep apnea (adult) (pediatric) Sleep deprivation Problems related to lack of adequate sleep Behaviorally induced insufficient sleep syndrome Persistent disorder of initiating or maintaining wakefulness [facility] Diagnosis Vitamin B 12 deficiency Other B-complex deficiencies [facility] Diagnosis Essential hypertension Unspecified essential hypertension Vitamin D deficiency Unspecified vitamin D deficiency [facility] Diagnosis Vitamin B 12 deficiency Other B-complex deficiencies [facility] Diagnosis Vitamin D deficiency- Primary Unspecified vitamin D deficiency Essential hypertension Unspecified essential hypertension Wellness examination [facility] Diagnosis ZEYNEP (obstructive sleep apnea)- Primary Obstructive sleep apnea (adult) (pediatric) [facility] Diagnosis Anxiety Anxiety state, unspecified [facility] Diagnosis Obstructive sleep apnea (adult) (pediatric)- Primary [facility] Diagnosis Vitamin B 12 deficiency Other B-complex deficiencies [facility] in [facility] Diagnosis ZEYNEP (obstructive sleep apnea)- Primary Obstructive sleep apnea (adult) (pediatric) [facility] Diagnosis Vitamin B 12 deficiency Other B-complex deficiencies [facility] Diagnosis Essential hypertension Unspecified essential hypertension [facility] Diagnosis Hyperlipidemia, mixed Mixed hyperlipidemia [facility] Diagnosis Encounter for screening mammogram for malignant neoplasm of breast- Primary Other screening mammogram [facility] Diagnosis Hyperlipidemia, mixed Mixed hyperlipidemia [facility] Diagnosis Essential hypertension Unspecified essential hypertension [facility]* Diagnosis Abnormal mammogram- Primary Abnormal mammogram, unspecified Mammographic microcalcification found on diagnostic imaging of breast Mammographic microcalcification documented in this encounter [facility] note* Diagnosis Abnormal finding on radiological examination of breast- Primary Other (abnormal) findings on radiological examination of breast [facility] Diagnosis Abnormal mammogram Abnormal mammogram, unspecified [facility] Diagnosis Abnormality of both breasts on screening mammogram [facility] Diagnosis Abnormality of both breasts on screening mammogram [facility]* Diagnosis Encounter for screening mammogram for malignant neoplasm of breast Other screening mammogram [facility] Diagnosis Malignant neoplasm of upper-outer quadrant of left breast in female, estrogen receptor positive (HCC)- Primary [facility]* Diagnosis Invasive ductal carcinoma of breast, female, left (HCC)- Primary [facility] Diagnosis Malignant neoplasm of upper-outer quadrant of left breast in female, estrogen receptor positive (HCC)- Primary Abnormal mammogram with microcalcification Mammographic microcalcification At risk for lymphedema Other specified conditions influencing health status [facility]* Diagnosis Hyperlipidemia, mixed Mixed hyperlipidemia [facility]* Diagnosis Invasive ductal carcinoma of breast, female, left (HCC) [facility] Diagnosis Breast disorder- Primary Unspecified breast disorder [facility] Diagnosis Breast disorder- Primary Unspecified breast disorder [facility] Diagnosis Malignant neoplasm of upper-outer quadrant of left breast in female, estrogen receptor positive (HCC)- Primary [facility] Diagnosis Malignant neoplasm of upper-outer quadrant of left breast in female, estrogen receptor positive (HCC)- Primary Malignant neoplasm of upper-outer quadrant of left breast in female, estrogen receptor positive (HCC) [facility] Diagnosis Pre-operative examination- Primary Preoperative [...] receptor positive (HCC) [facility] Diagnosis Malignant neoplasm of upper-outer quadrant of left breast in female, estrogen receptor positive (HCC) Abnormal mammogram with microcalcification Mammographic microcalcification Malignant neoplasm of upper-outer quadrant of left breast in female, estrogen receptor positive (HCC) [facility] Diagnosis Malignant neoplasm of upper-outer quadrant of left breast in female, estrogen receptor positive (HCC) (HCC)- Primary Malignant neoplasm of upper-outer quadrant of left breast in female, estrogen receptor positive (HCC) (HCC) documented in this encounter [facility] for referral (narrative)* Outpatient Procedure (Routine) - Pending Review Specialty Diagnoses / Procedures Referred By Laila bermudez Referred To Contact [facility] Diagnoses Screening for colon cancer Procedures COLONOSCOPY SCREENING COLONOSCOPY FLX DX W/COLLJ SPEC WHEN Beth Gonzalez APRN.CNP [address] [place] [address] [facility] [address] [place] [address] Referral ID Status Reason Start Date Expiration Date Visits Requested Visits Authorized [id number] Pending Review Auto-Generat ed Referral 02/11/2022 02/11/2023 1 1 [facility] for referral (narrative)* Outpatient Procedure (Routine) - Closed Specialty Diagnoses / Procedures Referred By Contac t Referred To Contact [facility] Diagnoses Screening for colon cancer Procedures COLONOSCOPY SCREENING COLONOSCOPY SCREENING COLONOSCOPY FLX DX W/COLLJ SPEC WHEN Beth Gonzalez APRN.COUNTER CASER [address] [place] [address] [facility] [address] [place] [address] Referral ID Status Reason Start Date Expiration Date V isits Requested Visits Authorized [id number] Closed Auto-Generate d Referral OON/Self Pay Override 02/11/2022 02/11/2023 1 1 [facility] for referral (narrative)* Diagnostic Procedure Only (Routine) - Authorized Specialty Diagnoses / Procedures Referred By Contac t Referred To Contact [facility] Diagnoses ZEYNEP (obstructive sleep apnea) Procedures HOME SLEEP APNEA TEST (HSAT) SLEEP STD AIRFLOW HRT RATE&O2 SAT EFFORT Jefry Figueroa Jr., MD [address] [place] [phone] [facility] [address] [place] [address] Referral ID Status Reason Start Date Expiration Date Visits Requested Visits Authorized [id number] Authorized Auto-Generat ed Referral 10/11/2021 10/10/2022 1 1 T [facility] for referral (narrative)* Diagnostic Procedure Only (Routine) - Pending Review Specialty Diagnoses / Procedures Referred By Contac t Referred To Contact [facility] Diagnoses ZEYNEP (obstructive sleep apnea) Procedures HOME SLEEP APNEA TEST (HSAT) SLEEP STD AIRFLOW HRT RATE&O2 SAT EFFORT Jefry Figueroa Jr., MD [address] [place] [address] [facility] [address] [place] [address] Referral ID Status Reason Start Date Expiration Date Visits Requested Visits Authorized [id number] Pending Review Auto-Generat ed Referral 10/19/2022 10/19/2023 1 1 [facility] for referral (narrative)* Diagnostic Procedure Only (Routine) - Pending Review Specialty Diagnoses / Procedures Referred By Laila bermudez Referred To Contact [facility] Diagnoses Encounter for screening mammogram for malignant neoplasm of breast Procedures DANILO SCREENING SCREENING MAMMOGRAPHY BI 2-VIEW BREAST INC CAD Stanley Prescott PA-C [address] [place] [address] [facility] [address] [place] [address] Referral ID Status Reason Start Date Expiration Date Visits Requested Visits Authorized [id number] Pending Review Auto-Generat ed Referral 05/25/2023 06/22/2024 1 1 [facility] for referral (narrative)* Diagnostic Procedure Only (Routine) - Pending Review Specialty Diagnoses / Procedures Referred By Laila bermudez Referred To Contact [facility] Diagnoses Mammographic microcalcification found on diagnostic imaging of breast Procedures DANILO STEREO BX BREAST RIGHT BX BREAST W/DEVICE 1ST [facility] STEREOTACTIC GUID Corwin Dupree MD [address] [place] [address] [facility] [address] [place] [address] Referral ID Status Reason Start Date Expiration Date Visits Requested Visits Authorized [id number] Pending Review Auto-Generat ed Referral 08/11/2023 09/09/2024 1 1 * Diagnostic Procedure Only (Routine) - Closed Specialty Diagnoses / Procedures Referred By Laila bermudez Referred To Contact [facility] Diagnoses Abnormal mammogram Procedures DANILO DIAGNOSTIC LEFT DIAGNOSTIC MAMMOGRAPHY COMPUTER-AIDED DETCJ UNI Corwin Dupree MD [address] [place] [address] [facility] [address] [place] [address] Referral ID Status Reason Start Date Expiration Date V isits Requested Visits Authorized [id number] Closed Auto-Generate d Referral 08/11/2023 10/10/2023 1 1 [facility] for referral (narrative)* Diagnostic Procedure Only (Routine) - Pending Review Specialty Diagnoses / Procedures Referred By Contac t Referred To Contact [facility] Diagnoses Abnormal finding on radiological examination of breast Procedures DANILO STEREO BX BREAST RIGHT BX BREAST W/DEVICE 1ST [facility] STEREOTACTIC Jm Duff MD [address] [place] [address] [facility] [address] [place] [phone] Referral ID Status Reason Start Date Expiration Date Visits Requested Visits Authorized [id number] Pending Review Auto-Generat ed Referral 08/13/2023 09/11/2024 1 1 [facility] for referral (narrative)* Diagnostic Procedure Only (Routine) - Closed Specialty Diagnoses / Procedures Referred By Contac t Referred To Contact [facility] Diagnoses Abnormal mammogram Procedures DANILO DIAGNOSTIC LEFT DIAGNOSTIC MAMMOGRAPHY COMPUTER-AIDED DETCJ UNI Corwin Dupree MD [address] [place] [address] [facility] [address] [place] [phone] Referral ID Status Reason Start Date Expiration Date V isits Requested Visits Authorized [id number] Closed Auto-Generate d Referral 08/11/2023 10/10/2023 1 1 [facility] [facility] ([facility]ative[facility] Diagnostic Procedure Only (Routine) - Closed Specialty Diagnoses / Procedures Referred By Laila t Referred To Contact [facility] Diagnoses Abnormality of both breasts on screening mammogram Procedures US BREAST LTD LEFT US BREAST UNI REAL TIME WITH IMAGE LIMITED Ted Monroe, [address] [place] [address] [facility] [address] [place] [address] Referral ID Status Reason Start Date Expiration Date V isits Requested Visits Authorized [id number] Closed Auto-Generate d Referral 08/03/2023 10/10/2023 1 1 [facility] for referral (narrative)* Diagnostic Procedure Only (Routine) - Closed Specialty Diagnoses / Procedures Referred By Laila t Referred To Contact [facility] Diagnoses Encounter for screening mammogram for malignant neoplasm of breast Procedures DANILO SCREENING SCREENING MAMMOGRAPHY BI 2-VIEW BREAST INC CAD Stanley Prescott PA-C [address] [place] [address] [facility] Imaging [address] [place] [id number] Referral ID Status Reason Start Date Expiration Date V isits Requested Visits Authorized [id number] Closed Auto-Generate d Referral 07/02/2023 10/10/2023 1 1 T [facility] for referral (narrative)* Diagnostic Procedure Only (Routine) - Closed Specialty Diagnoses / Procedures Referred By Laila bermudez Referred To Contact [facility] Diagnoses Breast disorder Procedures US BREAST LTD LEFT US BREAST UNI REAL TIME WITH IMAGE LIMITED Dianne Alvarenga MD [address] [place] [address] [facility] [address] [place] [address] Referral ID Status Reason Start Date Expiration Date Visits Re quested Visits Authorized [id number] Closed 09/16/2023 10/10/2023 1 1 [facility] for visit Narrative* Outpatient Procedure (Routine) - Closed Specialty Diagnoses / Procedures Referred By Laila bermudez Referred To Contact [facility] Diagnoses Screening for colon cancer Procedures COLONOSCOPY SCREENING COLONOSCOPY SCREENING COLONOSCOPY FLX DX W/COLLJ SPEC WHEN PFRMD Beth Maguire, SHEELA.COUNTER CASER [address] [place] [address] [facility] [address] [place] [address] Referral ID Status Reason Start Date Expiration Date V isits Requested Visits Authorized [id number] Closed Auto-Generate d Referral OON/Self Pay Override 02/11/2022 02/11/2023 1 1 [facility] for visit Narrative* Diagnostic Procedure Only (Routine) - Closed Specialty Diagnoses / Procedures Referred By Laila bermudez Referred To Contact Radiology / [facility] Diagnoses mammo scrreen order pend Procedures MAMMOGRAM SCREENING Ted Monroe [address] [place] [address] Radio Mammo [facility] [address] [place] [address] Referral ID Status Reason Start Date Expiration Date Visits Re quested Visits Authorized [id number] Closed 06/12/2022 08/11/2022 1 1 [facility] for visit Narrative* Diagnostic Procedure Only (Routine) - Closed Specialty Diagnoses / Procedures Referred By Laila bermudez Referred To Contact [facility] Diagnoses Abnormal mammogram Procedures DANILO DIAGNOSTIC LEFT DIAGNOSTIC MAMMOGRAPHY COMPUTER-AIDED DETCJ Corwin Nugent MD [address] [place] [address] [facility] [address] [place] [address] Referral ID Status Reason Start Date Expiration Date V isits Requested Visits Authorized [id number] Closed Auto-Generate d Referral 08/11/2023 10/10/2023 1 1 [facility] for visit Narrative* Diagnostic Procedure Only (Routine) - Closed Specialty Diagnoses / Procedures Referred By Laila bermudez Referred To Contact [facility] Diagnoses Abnormality of both breasts on screening mammogram Procedures DANILO DIAGNOSTIC BILATERAL DIAGNOSTIC MAMMOGRAPHY COMPUTER-AIDED DETCJ BI Ted Monroe L, DO [address] [place] [address] [facility] [address] [place] [address] Referral ID Status Reason Start Date Expiration Date V isits Requested Visits Authorized [id number] Closed Auto-Generate d Referral 08/03/2023 10/10/2023 1 1 [facility] Procedure Only (Routine) - Closed Specialty Diagnoses / Procedures Referred By Contsveta t Referred To Contact [facility] Diagnoses Encounter for screening mammogram for malignant neoplasm of breast Procedures DANILO SCREENING SCREENING MAMMOGRAPHY BI 2-VIEW BREAST INC Stanley Mauricio PA-C [address] [place] [address] [facility] [address] [place] [address] Referral ID Status Reason Start Date Expiration Date V isits Requested Visits Authorized [id number] Closed Auto-Generate d Referral 07/02/2023 10/10/2023 1 1 [facility] Advance Directives No Advanced Directives Records FoundDocuments on File Type Date Recorded Patient Slasher Tender Expl anation Advance Directive(s) 07/02/2020 12:48 PM Advance Directive(s) 06/28/2020 12:21 PM Advance Directive(s) 11/09/2016 12:42 PM Documents on File Type Date Recorded Patient Slasher Tender Expl anation Advance Directive(s) 03/23/2022 9:24 AM Advance Directive(s) 07/02/2020 12:48 PM Advance Directive(s) 06/28/2020 12:21 PM Advance Directive(s) 11/09/2016 12:42 PM Documents on File Type Date Recorded Patient Slasher Tender Expl anation Advance Directive(s) 03/23/2022 9:24 AM [...] Referral Specialty Diagnoses / [facility] Diagnoses Invasive ductal carcinoma of breast, female, left (HCC) Procedures MRI 3D POST PROCESSING 3D RENDERING W/INTERP&POSTPROC DIFF WORK STATION Maria Victoria Camilo PA-C [address] [place] [id number] [facility] Referral ID Status Reason Start Date Expiration Date Visits Requested Visits Authorized [id number] Pending Review Auto-Generat ed Referral 3 09/25/2024 1 1 Specialty Diagnoses / [facility] Diagnoses Invasive ductal carcinoma of breast, female, left (HCC) Procedures MRI BREAST WO/W IVCON BILATERAL MRI BREAST WITHOUT&WITH CONTRAST W/CAD BILATERAL Maria Victoria Camilo PA-C [address] [address] [id number] [facility] Referral ID Status Reason Start Date Expiration Date Visits Requested Visits Authorized [id number] Pending Review Auto-Generat ed Referral 3 09/25/2024 1 1 Specialty Diagnoses / Procedures [facility] To Contact Diagnoses Malignant neoplasm of upper-outer quadrant of left breast in female, estrogen receptor positive (HCC) Procedures CONSULT TO MEDICAL GENETICS - CANCER MEDICAL GENETICS COUNSELING EACH [address] [place] [address] [place] [phone] [facility] [place] [facility] [place] [phone] Referral ID Status Reason Start Date Expiration Date Visits Requested Visits Authorized [id number] Pending Review PCP Requested Referral Auto-Generate d Referral 3 09/03/2024 1 1 Specialty Diagnoses / Procedures Referred By Contac t Referred To Contact Radiation Oncology Diagnoses Malignant neoplasm of upper-outer quadrant of left breast in female, estrogen receptor positive (HCC) Abnormal mammogram with microcalcification Procedures RAD/ONC CONSULT OFFICE/OUTPATIENT [facility] 60-[place] [address] [place] [address] Referral ID Status Reason Start Date Expiration Date Visits Requested Visits Authorized [id number] Pending Review PCP Requested Referral 3 09/03/2024 1 1 Specialty Diagnoses / Procedures Referred By Contac t Referred To Contact Diagnoses Malignant neoplasm of upper-outer quadrant of left breast in female, estrogen receptor positive (HCC) Abnormal mammogram with microcalcification Procedures CONSULT TO HEMATOLOGY/ONCOLOGY OFFICE/OUTPATIENT [facility] 60-[place] [address] [place] [address] Referral ID Status Reason Start Date Expiration Date Visits Requested Visits Authorized [id number] Pending Review PCP Requested Referral 3 12/03/2023 1 1 Specialty Diagnoses / Procedures Referred By Contac t Referred To Contact MR IMAGING Diagnoses Breast disorder Procedures MRI CLIP PLACEMENT BREAST LEFT PERQ BREAST LOC DEVICE PLACEMT 1ST LESIO [place] [address] Referral ID Status Reason Start Date Expiration Date Visits Requested Visits Authorized [id number] Pending Review Auto-Generat ed Referral 09/16/2023 10/15/2024 1 1 Specialty Diagnoses / Procedures Referred By Contac t Referred To Contact [facility] Diagnoses Breast disorder Procedures US BIOPSY BREAST LEFT BX BREAST W/DEVICE 1ST LESION ULTRASOUND Lashell Borjas MD [facility] [address] [place] [address] Referral ID Status Reason Start Date Expiration Date Visits Requested Visits Authorized [id number] Pending Review Auto-Generat ed Referral 09/16/2023 10/15/2024 1 1 Additional Source Comments Source Comments (unrecognize d section and content) In the event this informatio n is protected by the Federal Confidentiality of Alcohol and Drug Abuse Patient Records regulations: The Federal rules restrict any use of the information to criminally investigate or prosecute any alcohol or drug abuse patient.[facility] the event this information is protected by the Federal Confidentiality of Alcohol and Drug Abuse Patient Records regulations: The Federal rules restrict any use of the information to criminally investigate or prosecute any alcohol or drug abuse patient.[facility] the event this information is protected by the Federal Confidentiality of Alcohol and Drug Abuse Patient Records regulations: The Federal rules restrict any use of the information to criminally investigate or prosecute any alcohol or drug abuse patient.[facility] the event this information is protected by the Federal Confidentiality of Alcohol and Drug Abuse Patient Records regulations: The Federal rules restrict any use of the information to criminally investigate or prosecute any alcohol or drug abuse patient.[facility] the event this information is protected by the Federal Confidentiality of Alcohol and Drug Abuse Patient Records regulations: The Federal rules restrict any use of the information to criminally investigate or prosecute any alcohol or drug abuse patient.[facility] Hospital[facility] the event this information is protected by the Federal Confidentiality of Alcohol and Drug Abuse Patient Records regulations: The Federal rules restrict any use of the information to criminally investigate or prosecute any alcohol or drug abuse patient.[facility] Hospital[facility] the event this information is protected by the Federal Confidentiality of Alcohol and Drug Abuse Patient Records regulations: The Federal rules restrict any use of the information to criminally investigate or prosecute any alcohol or drug abuse patient.[facility] Hospital[facility] the event this information is protected by the Federal Confidentiality of Alcohol and Drug Abuse Patient Records regulations: The Federal rules restrict any use of the information to criminally investigate or prosecute any alcohol or drug abuse patient.[facility] Hospital[facility] the event this information is protected by the Federal Confidentiality of Alcohol and Drug Abuse Patient Records regulations: The Federal rules restrict any use of the information to criminally investigate or prosecute any alcohol or drug abuse patient.[facility] Hospital[facility] the event this information is protected by the Federal Confidentiality of Alcohol and Drug Abuse Patient Records regulations: The Federal rules restrict any use of the information to criminally investigate or prosecute any alcohol or drug abuse patient.[facility] Hospital[facility] the event this information is protected by the Federal Confidentiality of Alcohol and Drug Abuse Patient Records regulations: The Federal rules restrict any use of the information to criminally investigate or prosecute any alcohol or drug abuse patient.[facility] Hospital[facility] the event this information is protected by the Federal Confidentiality of Alcohol and Drug Abuse Patient Records regulations: The Federal rules restrict any use of the information to criminally investigate or prosecute any alcohol or drug abuse patient.[facility] Hospital[facility] the event this information is protected by the Federal Confidentiality of Alcohol and Drug Abuse Patient Records regulations: The Federal rules restrict any use of the information to criminally investigate or prosecute any alcohol or drug abuse patient.[facility] Hospital[facility] the event this information is protected by the Federal Confidentiality of Alcohol and Drug Abuse Patient Records regulations: The Federal rules restrict any use of the information to criminally investigate or prosecute any alcohol or drug abuse patient.[facility] Hospital[facility] the event this information is protected by the Federal Confidentiality of Alcohol and Drug Abuse Patient Records regulations: The Federal rules restrict any use of the information to criminally investigate or prosecute any alcohol or drug abuse patient.[facility] HospitalIn the event this information is protected by the Federal Confidentiality of Alcohol and Drug Abuse Patient Records regulations: The Federal rules restrict any use of the information to criminally investigate or prosecute any alcohol or drug abuse patient.[facility] HospitalIn the event this information is protected by the Federal Confidentiality of Alcohol and Drug Abuse Patient Records regulations: The Federal rules restrict any use of the information to criminally investigate or prosecute any alcohol or drug abuse patient.[facility] HospitalIn the event this information is protected by the Federal Confidentiality of Alcohol and Drug Abuse Patient Records regulations: The Federal rules restrict any use of the information to criminally investigate or prosecute any alcohol or drug abuse patient.[facility] HospitalIn the event this information is protected by the Federal Confidentiality of Alcohol and Drug Abuse Patient Records regulations: The Federal rules restrict any use of the information to criminally investigate or prosecute any alcohol or drug abuse patient.[facility] HospitalIn the event this information is protected by the Federal Confidentiality of Alcohol and Drug Abuse Patient Records regulations: The Federal rules restrict any use of the information to criminally investigate or prosecute any alcohol or drug abuse patient.[facility] HospitalIn the event this information is protected by the Federal Confidentiality of Alcohol and Drug Abuse Patient Records regulations: The Federal rules restrict any use of the information to criminally investigate or prosecute any alcohol or drug abuse patient.[facility] HospitalIn the event this information is protected by the Federal Confidentiality of Alcohol and Drug Abuse Patient Records regulations: The Federal rules restrict any use of the information to criminally investigate or prosecute any alcohol or drug abuse patient.[facility] HospitalIn the event this information is protected by the Federal Confidentiality of Alcohol and Drug Abuse Patient Records regulations: The Federal rules restrict any use of the information to criminally investigate or prosecute any alcohol or drug abuse patient.[facility] HospitalIn the event this information is protected by the Federal Confidentiality of Alcohol and Drug Abuse Patient Records regulations: The Federal rules restrict any use of the information to criminally investigate or prosecute any alcohol or drug abuse patient.[facility] HospitalIn the event this information is protected by the Federal Confidentiality of Alcohol and Drug Abuse Patient Records regulations: The Federal rules restrict any use of the information to criminally investigate or prosecute any alcohol or drug abuse patient.[facility] HospitalIn the event this information is protected by the Federal Confidentiality of Alcohol and Drug Abuse Patient Records regulations: The Federal rules restrict any use of the information to criminally investigate or prosecute any alcohol or drug abuse patient.[facility] HospitalIn the event this information is protected by the Federal Confidentiality of Alcohol and Drug Abuse Patient Records regulations: The Federal rules restrict any use of the information to criminally investigate or prosecute any alcohol or drug abuse patient.[facility] HospitalIn the event this information is protected by the Federal Confidentiality of Alcohol and Drug Abuse Patient Records regulations: The Federal rules restrict any use of the information to criminally investigate or prosecute any alcohol or drug abuse patient.[facility] HospitalIn the event this information is protected by the Federal Confidentiality of Alcohol and Drug Abuse Patient Records regulations: The Federal rules restrict any use of the information to criminally investigate or prosecute any alcohol or drug abuse patient.[facility] HospitalIn the event this information is protected by the Federal Confidentiality of Alcohol and Drug Abuse Patient Records regulations: The Federal rules restrict any use of the information to criminally investigate or prosecute any alcohol or drug abuse patient.[facility] HospitalIn the event this information is protected by the Federal Confidentiality of Alcohol and Drug Abuse Patient Records regulations: The Federal rules restrict any use of the information to criminally investigate or prosecute any alcohol or drug abuse patient.[facility] HospitalIn the event this information is protected by the Federal Confidentiality of Alcohol and Drug Abuse Patient Records regulations: The Federal rules restrict any use of the information to criminally investigate or prosecute any alcohol or drug abuse patient.[facility] HospitalIn the event this information is protected by the Federal Confidentiality of Alcohol and Drug Abuse Patient Records regulations: The Federal rules restrict any use of the information to criminally investigate or prosecute any alcohol or drug abuse patient.[facility] HospitalIn the event this information is protected by the Federal Confidentiality of Alcohol and Drug Abuse Patient Records regulations: The Federal rules restrict any use of the information to criminally investigate or prosecute any alcohol or drug abuse patient.[facility] HospitalIn the event this information is protected by the Federal Confidentiality of Alcohol and Drug Abuse Patient Records regulations: The Federal rules restrict any use of the information to criminally investigate or prosecute any alcohol or drug abuse patient.[facility] HospitalIn the event this information is protected by the Federal Confidentiality of Alcohol and Drug Abuse Patient Records regulations: The Federal rules restrict any use of the information to criminally investigate or prosecute any alcohol or drug abuse patient.[facility] HospitalIn the event this information is protected by the Federal Confidentiality of Alcohol and Drug Abuse Patient Records regulations: The Federal rules restrict any use of the information to criminally investigate or prosecute any alcohol or drug abuse patient.[facility] HospitalIn the event this information is protected by the Federal Confidentiality of Alcohol and Drug Abuse Patient Records regulations: The Federal rules restrict any use of the information to criminally investigate or prosecute any alcohol or drug abuse patient.[facility] HospitalIn the event this information is protected by the Federal Confidentiality of Alcohol and Drug Abuse Patient Records regulations: The Federal rules restrict any use of the information to criminally investigate or prosecute any alcohol or drug abuse patient.[facility] HospitalIn the event this information is protected by the Federal Confidentiality of Alcohol and Drug Abuse Patient Records regulations: The Federal rules restrict any use of the information to criminally investigate or prosecute any alcohol or drug abuse patient.[facility] HospitalIn the event this information is protected by the Federal Confidentiality of Alcohol and Drug Abuse Patient Records regulations: The Federal rules restrict any use of the information to criminally investigate or prosecute any alcohol or drug abuse patient.[facility] HospitalIn the event this information is protected by the Federal Confidentiality of Alcohol and Drug Abuse Patient Records regulations: The Federal rules restrict any use of the information to criminally investigate or prosecute any alcohol or drug abuse patient.[facility] HospitalIn the event this information is protected by the Federal Confidentiality of Alcohol and Drug Abuse Patient Records regulations: The Federal rules restrict any use of the information to criminally investigate or prosecute any alcohol or drug abuse patient.[facility] HospitalIn the event this information is protected by the Federal Confidentiality of Alcohol and Drug Abuse Patient Records regulations: The Federal rules restrict any use of the information to criminally investigate or prosecute any alcohol or drug abuse patient.[facility] HospitalIn the event this information is protected by the Federal Confidentiality of Alcohol and Drug Abuse Patient Records regulations: The Federal rules restrict any use of the information to criminally investigate or prosecute any alcohol or drug abuse patient.[facility] HospitalIn the event this information is protected by the Federal Confidentiality of Alcohol and Drug Abuse Patient Records regulations: The Federal rules restrict any use of the information to criminally investigate or prosecute any alcohol or drug abuse patient.[facility] HospitalIn the event this information is protected by the Federal Confidentiality of Alcohol and Drug Abuse Patient Records regulations: The Federal rules restrict any use of the information to criminally investigate or prosecute any alcohol or drug abuse patient.[facility] HospitalIn the event this information is protected by the Federal Confidentiality of Alcohol and Drug Abuse Patient Records regulations: The Federal rules restrict any use of the information to criminally investigate or prosecute any alcohol or drug abuse patient.[facility] HospitalIn the event this information is protected by the Federal Confidentiality of Alcohol and Drug Abuse Patient Records regulations: The Federal rules restrict any use of the information to criminally investigate or prosecute any alcohol or drug abuse patient.[facility] HospitalIn the event this information is protected by the Federal Confidentiality of Alcohol and Drug Abuse Patient Records regulations: The Federal rules restrict any use of the information to criminally investigate or prosecute any alcohol or drug abuse patient.[facility] HospitalIn the event this information is protected by the Federal Confidentiality of Alcohol and Drug Abuse Patient Records regulations: The Federal rules restrict any use of the information to criminally investigate or prosecute any alcohol or drug abuse patient.[facility] HospitalIn the event this information is protected by the Federal Confidentiality of Alcohol and Drug Abuse Patient Records regulations: The Federal rules restrict any use of the information to criminally investigate or prosecute any alcohol or drug abuse patient.[facility] HospitalIn the event this information is protected by the Federal Confidentiality of Alcohol and Drug Abuse Patient Records regulations: The Federal rules restrict any use of the information to criminally investigate or prosecute any alcohol or drug abuse patient.[facility] the event this information is protected by the Federal Confidentiality of Alcohol and Drug Abuse Patient Records regulations: The Federal rules restrict any use of the information to criminally investigate or prosecute any alcohol or drug abuse patient.[facility] Hospital[facility] the event this information is protected by the Federal Confidentiality of Alcohol and Drug Abuse Patient Records regulations: The Federal rules restrict any use of the information to criminally investigate or prosecute any alcohol or drug abuse patient.[facility] the event this information is protected by the Federal Confidentiality of Alcohol and Drug Abuse Patient Records regulations: The Federal rules restrict any use of the information to criminally investigate or prosecute any alcohol or drug abuse patient.[facility] HospitalIn the event this information is protected by the Federal Confidentiality of Alcohol and Drug Abuse Patient Records regulations: The Federal rules restrict any use of the information to criminally investigate or prosecute any alcohol or drug abuse patient.[facility] HospitalIn the event this information is protected by the Federal Confidentiality of Alcohol and Drug Abuse Patient Records regulations: The Federal rules restrict any use of the information to criminally investigate or prosecute any alcohol or drug abuse patient.[facility] HospitalIn the event this information is protected by the Federal Confidentiality of Alcohol and Drug Abuse Patient Records regulations: The Federal rules restrict any use of the information to criminally investigate or prosecute any alcohol or drug abuse patient.[facility] HospitalIn the event this information is protected by the Federal Confidentiality of Alcohol and Drug Abuse Patient Records regulations: The Federal rules restrict any use of the information to criminally investigate or prosecute any alcohol or drug abuse patient.[facility] HospitalIn the event this information is protected by the Federal Confidentiality of Alcohol and Drug Abuse Patient Records regulations: The Federal rules restrict any use of the information to criminally investigate or prosecute any alcohol or drug abuse patient.[facility] Reason for Visit (unrecogniz ed section and content) Specialty Diagnoses / Procedures Referred By Contact Referred To Contact Gastroenterology / GASTROENTEROLOGY Diagnoses Screening for colon cancer Procedures CONSULT TO GASTROENTEROLOGY OFFICE/OUTPATIENT NEW HIGH MDM 60-74 MINUTES Amparo De Leon APRN.COUNTER CASER [address] [place] [address] If Gastroenterology Referral ID Status Reason Start Date Expiration Date V isits Requested Visits Authorized [id number] Closed Financial Clearance Not Required Patient Cleared - INN Insurance Found 12/10/2021 10/10/2022 1 1 Reason Comments CPAP Supplies Compliance report Reason Comments Opened In Error Reason Comments New Patient Specialty Diagnoses / Procedures Referred By Laila t Referred To Contact SLEEP DISORDERS Diagnoses ZEYNEP Procedures Consult to Sleep Medicine Ted Monroe, DO [address] [place] [address] Neur Sleep Formerly [facility] [address] [place] [address] Referral ID Status Reason Start Date Expiration Date Visits Requested Visits Authorized [id number] Pending Review OON/Self Pay Override 03/04/2022 06/02/2022 [...] Self Corwin Dupree MD [address] [place] [address] Referral ID Status Reason Start Date Expiration Date Visits Re quested Visits Authorized [id number] Closed 08/11/2023 10/10/2023 1 1 Reason Comments Radio Imaging Study Comments Reason Comments Radiology US Specialty Diagnoses / Procedures Referred By Laial t Referred To Contact BR IMAGING Diagnoses Abnormality of both breasts on screening mammogram Procedures US BREAST LTD LEFT US BREAST UNI REAL TIME WITH IMAGE LIMITED Ted Monroe, DO [address] [place] [address] Br Imaging [address] [place] [address] Referral ID Status Reason Start Date Expiration Date V isits Requested Visits Authorized [id number] Closed Auto-Generate d Referral 08/03/2023 10/10/2023 1 [...] CONTRAST W/CAD BILATERAL Maria Victoria Camilo PA-C [address] [place] [address] [place] [address] Referral ID Status Reason Start Date Expiration Date V isits Requested Visits Authorized [id number] Closed Auto-Generate d Referral 09/15/2023 10/10/2023 1 1 Reason Comments Breast Problem Reason Comments Schedule Surgery Reason Comments Established Patient regroup Reason Comments Consult Specialty Diagnoses / Procedures Referred By Contac t Referred To Contact Radiation Oncology Diagnoses Malignant neoplasm of upper-outer quadrant of left breast in female, estrogen receptor positive (HCC) Abnormal mammogram with microcalcification Procedures RAD/ONC CONSULT OFFICE/OUTPATIENT SELECT AT [place] 60-[place] [address] [place] [address] Referral ID Status Reason Start Date Expiration Date Visits Requested Visits Authorized [id number] Pending Review PCP Requested Referral 3 09/03/2024 1 1 Reason Comments Patient Education LEFT mastectomy with SN bx/mapping Care Teams (unrecognized sec tion and content) Load Tester Relationship Specialty Start Date End Date Ted Monroe DO [address] [place], [place] [address] PCP - General Family Practice 01/24/14 Load Tester Relationship Specialty Start Date End Date Ted Monroe DO [address] [place] [address] PCP - General Family Practice 01/24/14 Load Tester Relationship Specialty Start Date End Date Ted Monroe, DO [address] [place] [address] PCP - General Family Practice 01/24/14 Load Tester Relationship Specialty Start Date End Date Ted Monroe, DO [address] [place] [address] PCP - General Family Practice 01/24/14 Load Tester Relationship Specialty Start Date End Date Ted Monroe, DO [address] [place] [address] PCP - General Family Practice 01/24/14 Load Tester Relationship Specialty Start Date End Date Ted Monroe, DO [address] [place] [address] PCP - General Family Practice 01/24/14 Load Tester Relationship Specialty Start Date End Date Ted Monroe, DO [address] [place] [address] PCP - General Family Practice 01/24/14 Load Tester Relationship Specialty Start Date End Date Ted Monroe, DO [address] [place] [address] PCP - General Family Practice 01/24/14 Load Tester Relationship Specialty Start Date End Date Ted Monroe, DO [address] [place] [address] PCP - General Family Practice 01/24/14 Load Tester Relationship Specialty Start Date End Date Ted Monroe, DO [address] [place] [address] PCP - General Family Practice 01/24/14 Load Tester Relationship Specialty Start Date End Date Ted Monroe, DO [address] [place] [address] PCP - General Family Medicine 01/24/14 Load Tester Relationship Specialty Start Date End Date Ted Monroe, DO [address] [place] [address] PCP - General Family Medicine 01/24/14 Load Tester Relationship Specialty Start Date End Date Ted Monroe, DO [address] [place] [address] PCP - General Family Medicine 01/24/14 Load Tester Relationship Specialty Start Date End Date Ted Monroe, DO [address] [place] [address] PCP - General Family Medicine 01/24/14 Load Tester Relationship Specialty Start Date End Date Ted Monroe, DO [address] [place] [address] PCP - General Family Medicine 01/24/14 Load Tester Relationship Specialty Start Date End Date Ted Monroe, DO [address] [place] [address] PCP - General Family Medicine 01/24/14 Load Tester Relationship Specialty Start Date End Date Ted Monroe, DO [address] [place] [address] PCP - General Family Medicine 01/24/14 Load Tester Relationship Specialty Start Date End Date Ted Monroe, DO [address] [place] [address] PCP - General Family Medicine 01/24/14 Load Tester Relationship Specialty Start Date End Date Ted Monroe, DO [address] [place] [address] PCP - General Family Medicine 01/24/14 Load Tester Relationship Specialty Start Date End Date Ted Monroe DO [address] [facility] [place] [address] PCP - General Family Medicine 01/24/14 Load Tester Relationship Specialty Start Date End Date Ted Monroe DO [address] [facility] [place] [address] PCP - General Family Medicine 01/24/14 Load Tester Relationship Specialty Start Date End Date Ted Monroe DO [address] [facility] [place] [address] PCP - General Family Medicine 01/24/14 Load Tester Relationship Specialty Start Date End Date Ted Monroe DO [address] [place] [address] PCP - General Family Medicine 01/24/14 Load Tester Relationship Specialty Start Date End Date Ted Monroe DO [address] [facility] [place] [address] PCP - General Family Medicine 01/24/14 Load Tester Relationship Specialty Start Date End Date Ted Monroe DO [address] [place] [address] PCP - General Family Medicine 01/24/14 Load Tester Relationship Specialty Start Date End Date Ted Monroe DO [address] [place] [address] PCP - General Family Medicine 01/24/14 Load Tester Relationship Specialty Start Date End Date Ted Monroe DO [address] [place] [address] PCP - General Family Medicine 01/24/14 Load Tester Relationship Specialty Start Date End Date Ted Monroe, [address] [place] [address] PCP - General Family Medicine 01/24/14 Load Tester Relationship Specialty Start Date End Date Ted Monroe, [address] [place] [address] PCP - General Family Medicine 01/24/14 Load Tester Relationship Specialty Start Date End Date Ted Monroe, [address] [place] [address] PCP - General Family Medicine 01/24/14 Load Tester Relationship Specialty Start Date End Date Ted Monroe DO [address] [place] [address] PCP - General Family Medicine 01/24/14 Load Tester Relationship Specialty Start Date End Date Ted Monroe DO [address] [place] [address] PCP - General Family Medicine 01/24/14 Load Tester Relationship Specialty Start Date End Date Ted Monroe DO [address] [place] [address] PCP - General Family Medicine 01/24/14 Load Tester Relationship Specialty Start Date End Date Ted Monroe DO [address] [place] [address] PCP - General Family Medicine 01/24/14 Load Tester Relationship Specialty Start Date End Date Ted Monroe, [address] [place] [address] PCP - General Family Medicine 01/24/14 Load Tester Relationship Specialty Start Date End Date Ted Monroe DO [address] [place] [address] PCP - General Family Medicine 01/24/14 Load Tester Relationship Specialty Start Date End Date Ted Monroe DO [address] [place] [address] PCP - General Family Medicine 01/24/14 Load Tester Relationship Specialty Start Date End Date Ted Monroe DO [address] [place] [address] PCP - General Family Medicine 01/24/14 Load Tester Relationship Specialty Start Date End Date Ted Monroe DO [address] [place] [address] PCP - General Family Medicine 01/24/14 Jacoby Guevara MD, [address] [place] [address] Physician Radiation Oncology 09/09/23 Load Tester Relationship Specialty Start Date End Date Ted Monroe DO [address] [place] [address] PCP - General Family Medicine 01/24/14 Jacoby Guevara MD, [address] [place] [address] Physician Radiation Oncology 09/09/23 Load Tester Relationship Specialty Start Date End Date Ted Monroe DO [address] [place] [address] PCP - General Family Medicine 01/24/14 Jacoby Guevara MD, [address] [place] [address] Physician Radiation Oncology 09/09/23 Load Tester Relationship Specialty Start Date End Date Ted Monroe DO [address] [place] [address] PCP - General Family Medicine 01/24/14 Jacoby Guevara MD, [address] [place] [address] Physician Radiation Oncology 09/09/23 Load Tester Relationship Specialty Start Date End Date Ted Monroe DO [address] [place] [address] PCP - General Family Medicine 01/24/14 Jacoby Guevara MD, [address] [place] [address] Physician Radiation Oncology 09/09/23 Load Tester Relationship Specialty Start Date End Date Ted Monroe DO [address] [place] [address] PCP - General Family Medicine 01/24/14 Jacoby Guevara MD, [address] [place] [address] Physician Radiation Oncology 09/09/23 Load Tester Relationship Specialty Start Date End Date eTd oMnroe DO [address] [place] [address] PCP - General Family Medicine 01/24/14 Jacoby Guevara MD, [address] [place] [address] Physician Radiation Oncology 09/09/23 Load Tester Relationship Specialty Start Date End Date Ted Monroe DO [address] [place] [address] PCP - General Family Medicine 01/24/14 Jacoby Guevara MD, [address] [place] [address] Physician Radiation Oncology 09/09/23 Load Tester Relationship Specialty Start Date End Date Ted Monroe DO [address] [place] [address] PCP - General Family Medicine 01/24/14 Jacoby Guevara MD, [address] [place] [address] Physician Radiation Oncology 09/09/23 Load Tester Relationship Specialty Start Date End Date Ted Monroe DO [address] [place] [address] PCP - General Family Medicine 01/24/14 Jacoby Guevara MD, [address] [place] [address] Physician Radiation Oncology 09/09/23 Load Tester Relationship Specialty Start Date End Date Ted Monroe DO [address] [place] [address] PCP - General Family Medicine 01/24/14 Jacoby Guevara MD, [address] [place] [address] Physician Radiation Oncology 09/09/23 INFORMATION SOURCE (unrecogn ized section and content) DATE CREATED AUTHOR AUTHOR'S ORGANIZ ATION 11/04/2023 [facility] DATE CREATED AUTHOR AUTHOR'S ORGANIZ ATION 11/10/2023 [facility] DATE CREATED AUTHOR AUTHOR'S ORGANIZ ATION 11/13/2023 [facility] FOR RECORDS PERTAINING TO PATIENTS WHO ARE [...] BE BASED ON THE PRIMARY CLINICAL RECORDS. [employer] [facility]. provides no warranty or guarantee of the accuracy or completeness of information in this document.
[2023-11-16 07:52] LABS: Erythrocyte Sedimentation Rate 35 mm/hr (0-30)
[2023-11-16] MEDS: 0.9% Normal Saline (1000mL) 1,000 ML 100 ML IV (09:11)
[2023-11-16 09:21] LABS: Phosphorus 3.5 mg/dL (2.5-4.9)
[2023-11-16] MEDS: Cefepime HCl 2 GM in 0.9% Normal Saline (100mL MB+) 100 ML IV (10:05)
[2023-11-16] MEDS: 0.9% Saline Lock 10 ML Syringe IV (10:05)
[2023-11-16] MEDS: Vancomycin HCl 2,000 MG in 0.9% Normal Saline (500mL Bag) 500 ML 250 MG IV (10:40)
--- NOTE | 2023-11-16 10:52 | PCM.RX.CS ---
Consult Antibiotic Management Pharmacy has been consulted to manage selected antibiotic: Vancomycin Type of Intervention Type of Consult: New start Suspected Infection Suspected Infection: Other (SEPTIC JOINT) Prior Doses of Antibiotics Prior Doses of Antibiotics Received/Current Regimen: Vancomycin 2000 mg IV given 11/16/23 @ 1040 Labs Labs: Sodium 139 mmol/L (136-145) 11/15/23 22:19 Potassium 3.0 mmol/L (3.5-5.1) L 11/15/23 22:19 Chloride 105 mmol/L (98-107) 11/15/23 22:19 Carbon Dioxide 24.0 mmol/L (21.0-32.0) 11/15/23 22:19 Anion Gap 10 (5-15) 11/15/23 22:19 BUN 15 mg/dL (7-18) 11/15/23 22:19 Creatinine 1.15 mg/dL (0.55-1.02) H 11/15/23 22:19 Est GFR (MDRD) Af Amer 62 mL/min (>60) 11/15/23 22:19 Est GFR (MDRD) Non-Af 51 mL/min (>60) L 11/15/23 22:19 BUN/Creatinine Ratio 13.0 RATIO (10-20) 11/15/23 22:19 Glucose 107 mg/dL (74-106) H 11/15/23 22:19 Dosing Weight Weight used for dosin.7 kg Estimated Creatinine Clearance Estimated Creatinine Clearance: ~70 Goal Trough Goal Trough: 15-20 mcg/mL Pharmacy Plan for Drug Dosing Pharmacy Plan for Drug Dosing: Vancomycin 2000 mg IV x 1 given 11/16/23 @ 1040, subsequent dosing 1750 mg PO Q12H. Pharmacy Service will continue to monitor and adjust dosing as required. Follow-Up Labs Follow-Up Labs: Trough: Vancomycin Date/Time Labs Ordered Labs to be done on [date and time ordered]: 11/17/23 @ 2230
--- NOTE | 2023-11-16 12:24 | CON.PCM_ITS ---
Assessment & Plan Assessment/Plan (1) Left knee pain: QUALIFIERS: Chronicity: acute Qualified Code(s): M25.562 - Pain in left knee (2) Gout of left knee: QUALIFIERS: Gout etiology: due to renal impairment Chronicity: acute Qualified Code(s): M10.362 - Gout due to renal impairment, left knee PLAN: Plan Morbidly obese female with history of chronic kidney disease acute onset knee pain without injury. Aspiration performed by the emergency room department low volume aspirate was sent for Gram stain which did not demonstrate any organisms white blood cells, there was insufficient volume to check for crystal analysis, however patient has elevated uric acid, she is able to arc the knee from 0 to 100 degrees without significant pain. Presentation consistent with acute gout left knee. Recommend steroids, pain control. No acute orthopedic surgical intervention warranted here. HPI Consult Data Date of Consult: 11/16/23 HPI Narrative HPI Narrative: DECLAN VILLEGAS, is a 63 F who has known chronic kidney disease who was discontinued on her Celebrex 1 week ago this is about the time when her left knee started to bother her and became present progressively worse. No injury to the left lower extremity no prior problems. She did have an aspiration in the emergency room which did not show any white blood cells or organisms and was very low volume. X-rays were taken and are nonconcerning. She complains of pain mostly in the posterior popliteal fossa she did have a Doppler ultrasound which was negative. [facility] Medical History (Updated 11/16/23 @ 12:[address] Osmin Bo, ) Breast cancer, left History of nephrolithiasis HLD (hyperlipidemia) HTN (hypertension) Migraines ZEYNEP on CPAP Osteoarthritis Home Medications celecoxib 200 mg capsule 200 mg PO DAILY 10/10/13 [History Last Taken 09/21/18] hydrochlorothiazide 12.5 mg capsule 12.5 mg PO DAILY 05/29/18 [History Last Taken Unknown] metoprolol succinate 100 mg tablet,extended release 24 hr 100 mg PO QHS 05/29/18 [History Last Taken 09/26/18 20:30] cholecalciferol (vitamin D3) 50 mcg (2,000 unit) tablet 5,000 unit PO DAILY 90 days ##90 06/03/18 [History Last Taken Unknown] fluoxetine 20 mg capsule 20 mg PO DAILY 09/26/18 [History Last Taken Unknown] multivitamin,sr-ftss-zvksyfgb 27 mg-0.4 mg tablet (Therems-M) 1 tab PO DAILY 09/26/18 [History Last Taken Unknown] ibuprofen 600 mg tablet 600 mg PO 4X/DAY pain or cramping #30 tabs 09/27/18 [Rx Last Taken Unknown] amlodipine 2.5 mg tablet 2.5 mg PO DAILY 11/16/23 [History Last Taken Unknown] cephalexin 500 mg capsule 500 mg PO TID #30 caps 11/16/23 [Rx Last Taken Unknown] cholecalciferol (vitamin D3) 125 mcg (5,000 unit) capsule 125 mcg PO DAILY 11/16/23 [History Last Taken Unknown] oxycodone-acetaminophen 5 mg-325 mg tablet 1 tab PO Q6H PRN PRN Pain 3 days #12 TABLETS 11/16/23 [Rx Last Taken Unknown] prednisone 20 mg tablet 40 mg (2 x 20 mg) PO DAILY #8 TABLETS 11/16/23 [Rx Last Taken Unknown] rosuvastatin 10 mg tablet 10 mg PO QHS 11/16/23 [History Last Taken Unknown] Allergy/AdvReac Type Severity Reaction Status Date / Time No Known Allergies Allergy Verified 11/15/23 17:54 Family History (Updated 11/16/23 @ 07:[address] Rama Su MD) Mother Dementia Father Skin cancer (melanoma) Heart disease Hypertension CAD (coronary artery disease) Surgical History (Updated 11/16/23 @ 07:[address] Rama Su MD) History of dental surgery History of left mastectomy S/P cystoscopy with ureteral stent placement Social History (Updated 11/16/23 @ 07:[address] Rama Su MD) household members: none Smoking Status: Never smoker alcohol intake: never substance use type: does not use Physical Exam Const alert, oriented x3 and no apparent distress General Appearance: cooperative Extremity Extremity Narrative: Left knee she is able to perform straight leg raise off the bed with intact extensor mechanism no tenderness around her quad or patellar tendon no cruciate or collateral ligament instability, there is no joint effusion she does have synovial hypertrophy there is no erythema no calf tenderness no significant swelling in the leg compartments are soft compressible she is neurovascular intact. No significant groin pain with hip range of motion range of motion 0- 100 0 to 90 degrees does not cause significant pain she is able to do this on her own. No significant swelling in the leg. [facility] 11/15/23 22:19 11/15/23 22:19 Labs: Laboratory Results - last 24 hr 11/15/23 22:19: WBC 11.2 H, RBC 4.49, Hgb 12.6, Hct 38.4, MCV 85.5, MCH 28.1, MCHC 32.8, RDW Std Deviation 40.3, RDW Coeff of Danilo 13.0, Plt Count 217, MPV 10.9, ESR 35 H, PT 13.7, INR 1.1, APTT 24.0 L, Sodium 139, Potassium 3.0 L, Chloride 105, Carbon Dioxide 24.0, Anion Gap 10, BUN 15, Creatinine 1.15 H, Est GFR (MDRD) Af Amer 62, Est GFR (MDRD) Non-Af 51 L, BUN/Creatinine Ratio 13.0, Glucose 107 H, Uric Acid 7.3 H, Calcium 9.5, Phosphorus 3.5, Magnesium 2.0, C-React Prot Ext Range 16.60 H 11/16/23 00:34: Fluid Crystals Cancelled, Fluid Crystal Source Cancelled, Fl Crystal Path Review Cancelled, Synovial Source Cancelled, Synovial Color Cancelled, Synovial Appearance Cancelled, Synovial Volume Cancelled, Synovial Viscosity Cancelled, Synovial WBC Cancelled, Synovial RBC Cancelled, Synovial Tot Cell Ct Cancelled, Synov Polynuclear WBCs Cancelled, Synov Mononuclear WBCs Cancelled, Synovial Neutrophils Cancelled, Synovial Lymphocytes Cancelled, Synovial Monocytes Cancelled, Synovial Plasma Cells Cancelled, Synovial Other C ells Cancelled, Synovial Polynuclear % Cancelled, Synovial Mononuclear % Cancelled, Synovial Path Comment Cancelled Micro: Microbiology 11/16/23 00:34 Fluid - Synovial (joint) Gram Stain - Final Imaging Radiology Impression Knee X-Ray 11/15/23 18:00 IMPRESSION: No acute abnormalities. Minimal, patellofemoral compartment predominant, tricompartmental degenerative arthrosis of the knee. Electronically Signed: Luis More MD at 18:36 EST , Venous Duplex 11/15/23 22:06 IMPRESSION: No sonographic evidence of deep venous thrombosis. Electronically Signed: Luis More MD at 23:05 EST ,
--- NOTE | 2023-11-16 15:07 | CASEMGMT ---
Discharge Planning A list of?HH and SNF providers including quality and resource use data and consistent with the patient's preferred geographic region, medical needs, and insurance network was created in [employer] Guide.? This list was provided to the RN ELENA. Linnea Fisher, Discharge Planning Asst.
--- NOTE | 2023-11-16 15:10 | CASEMGMT ---
TOD CM Face to Face with patient for initial transition planning/care coordination assessment. RN CM introduced self and role at [facility]. Patient lying in bed, alert and oriented. Patient willing to participate in assessment and is able to answer all questions appropriately. Care providers, pharmacy, and demographics verified. Patient wishes to discharge home, will monitor progress with therapy. RN CM reviewed therapy eval today with patient requiring min assist x2 to walk 7 feet. RN CM discussed levels of care at discharge and provided SNF and HHC list. Patient states she has no further needs or concerns at this time. CM to follow for discharge planning needs that may arise. PCP: Fer Specialists: Balta, surgeon [facility]; Jessica, oncologist; Jillian, radiologist; Preferred Pharmacy: [facility]: yes Living Will/HPOA: yes, daughter Lindsay Chen LNOK: daughter, brother, parents. Living Arrangements: Patient lives alone in a 2 story home with bed and bath on first floor, 2 steps and railing to enter the home. Patient is independent at home. Transportation: self, parents DME/HHC: Patient has raised toilet, cane, walker, grab bars, and cpap at home. No previous HHC or SNF Disposition Plan: TBD, anticipate Outpatient vs HHC vs SNF pending progress with therapy. Janie LOYD, RN, CM
[2023-11-16] MEDS: Acetaminophen 325 MG Tablet 650 MG PO (20:42)
[2023-11-16] MEDS: Metoprolol(XL)Succ 100 MG Tablet PO (20:44)
[2023-11-16] MEDS: FLUoxetine 20 MG Capsule PO (20:45)
[2023-11-16] MEDS: Atorvastatin Calcium 20 MG Tablet PO (20:45)
[2023-11-16] MEDS: hydroCHLOROthiazide 12.5mg 12.5 MG PO (20:49)
[2023-11-17 03:34] VITALS: BP 151/70; PULSE 67; RESP 16; TEMP 36.7; O2SAT 96
--- NOTE | 2023-11-17 06:19 | PCM.PN.HOSP ---
Reason for Visit Reason for Visit: Diagnoses Gout due to renal impairment, left knee (11/16/23) Pain in left knee (11/16/23) Pain in unspecified limb (11/16/23) Pain, unspecified (11/16/23) Subjective Subjective Patient with DC RODERICK the day prior without issue, transitioned to steroids, improved and getting up with assist. Orthopedic surgery also evaluated the patient yesterday and discussed again with patient that this is likely gout. She improved overnight and with staff has been up and moving using a walker. She notes having these devices already at home. She notes some serosanguineous drainage from the RODERICK sites but otherwise no complaints. She notes the discomfort and immobility of the knee has significantly improved. She is eager for discharge to home. Patient denies fevers, chills, nausea, emesis, abdominal pain, chest pain or dyspnea. Objective Data Objective Data Vital Signs: Vital Signs Temp Pulse Resp BP Pulse Ox O2 Del Method 98.1 F 67 16 151/70 H 96 CPAP 11/17/23 03:34 11/17/23 03:34 11/17/23 03:34 11/17/23 03:34 11/17/23 03:34 11/17/23 03:34 Oxygen Delivery Method CPAP Weight: 279 lb 5.211 oz Body Mass Index (BMI) 45.1 Intake & Output: Intake and Output for Last 24 Hours 11/15/23 11/16/23 11/17/23 23:59 23:59 23:59 Intake Total 641.67 / 641.67 1298.33 / 1298.33 Output Total 15 / 15 Balance 626.67 / 626.67 1298.33 / 1298.33 Lab / Micro Data 11/17/23 08:20 11/17/23 07:20 Labs: Laboratory Results - last 24 hr 11/15/23 22:19: ESR 35 H, Phosphorus 3.5, Magnesium 2.0, C-React Prot Ext Range 16.60 H Micro: Microbiology 11/16/23 00:34 Fluid - Synovial (joint) Gram Stain - Final Physical Exam Narrative Physical Examination: General: Awake, alert, oriented x 3 and cooperative, seated upright in MS bed, notes discomfort to the knee notably improved, moving it with greater ease. Skin: Normal color, normal turgor, no icterus, no cyanosis except for recent left-sided mastectomy several weeks out, status post RODERICK removal the day prior, some serosanguineous drainage noted. HEENT: AT/NC, EOMI, PERRLA, MMM. Lungs: Mildly diminished, distant, appropriate breath sounds, no rales, ronchi or wheezing. Heart: Mildly bradycardic with regular rhythm; no gallop, rub audible. Abdomen: Soft, morbidly obese, NTTP, no appreciated distention. Extremities: No cyanosis, no clubbing, no marked peripheral edema, left knee with improved range of motion, patient moving the bed lifting her leg. Neurological: Patient awake, alert, oriented as noted, cognitive function intact; pupils equally reactive to light and accommodation, cranial nerves grossly normal, moving all 4 extremities with left lower extremity movement improved, strength improving, mildly to moderately globally decreased. Psychiatric: Affect appears improved, normal, no acute evidence of depressive or anxiety feelings but does have underlying history. Assessment & Plan Assessment/Plan (1) Intractable pain: PLAN: Plan The patient is a 63 y/o F w/ PMHx: Possible CKD stage III unclear subtype, Breast L sided CA s/p recent mastectomy at [facility] with RODERICK drain in place x 7 weeks (draining routinely 60 or 70 cc/day serosanguineous fluid), HTN, HLD, Chronic migraines, ZEYNEP on CPAP, Hx Nephrolithiasis, Anxiety and Depression who presents to the [facility] ED on 11/16/23 with 1 week history of left lower extremity progressively worsening discomfort specifically aching, behind the left knee, worse with weight bearing and being, improved with rest starting immediately after she stopped her celebrex secondary to concern for bleeding issues with thrombocytopenia per her Oncologist Dr. Lopez. 1. Acute L knee gout flare: Admitted to NH, initially placed on IV Vanc and Cefepime, cultures returned unremarkable, DVT US negative, patient evaluated per Orthopedic surgery and recommended d/c abx, transition to steroids for Gout flare. Patient clinical improved overnight and was able to ambulate with assist devices. PT/OT/CM consulted to be cautious. 2. Hypokalemia: Admission K+ 3.0, magnesium level requested, supplementation given, repeat level 11/17/22 3.3, oral supplementation given. 3. Left sided breast cancer, unclear specific type: Patient is uncertain of type but states potentially ductal carcinoma, status post recent left mastectomy approximately 7 weeks prior with RODERICK drain in place with ongoing drainage approximately 60 to 70 cc of serosanguineous fluid daily but 11/16/23 only 20 cc out. Discussed patient's status with her surgeon who performed her mastectomy Dr. Harper Lopez [phone] who requested that patient's drain be removed given drainage over the last day since presentation totaled only 20 cc. Per recommendation and review with surgeon patient's RODERICK suture was removed and RODERICK drain was uncapped to remove pressure and the RODERICK drain was slowly pulled out. There was no marked fluid and gauze dressing was placed over this. Continued daily dressings to this region w/ follow-up planned with her surgeon in 1 to 2 weeks for reassessment and encouraged routine follow-up with Oncology as already arranged. 4. Hypertension: Continue home regimen including metoprolol, hydrochlorothiazide, PRN hydralazine. 5. Suspected Chronic Kidney Disease Stage III, unclear subtype: Admission BUN/Cr 15/1.15, baseline renal function last noted 0.8-0.9 however GFR has decreased, 11/17/23 BUN/Cr 17/0.12, GFR 53 noted thus suspect CKD stage III unclear subtype but recommended continued outpatient evaluation. 6. Anxiety and depression: We will continue patient on fluoxetine regimen. 7. Obesity: Weight loss and lifestyle changes encouraged. 8. Chronic migraines: Per current list not on chronic regimen, if necessary may add. 9. Hyperlipidemia: Per current list on a regimen, defer to outpatient. 10. ZEYNEP: CPAP nightly. 11. DVT prophylaxis: SCDs, hold chemoprophylaxis given recent arthrocentesis and recent bleeding issues reported. 12. CODE status: Patient SHEILA is her children and living will is currently in place. Full Code status. Charges/Coding Visit Charges Inpatient E&M: 89372 Subs Hosp L2
[2023-11-17 07:03] VITALS: O2SAT 95
[2023-11-17 07:58] VITALS: BP 120/57; PULSE 62; PULSE 63; RESP 12; TEMP 36.7; O2SAT 93
[2023-11-17] MEDS: Acetaminophen 325 MG Tablet 650 MG PO (08:08)
[2023-11-17] MEDS: FLUoxetine 20 MG Capsule PO (08:08)
[2023-11-17] MEDS: amLODIPine 2.5 MG Tablet PO (08:08)
[2023-11-17 08:34] LABS: Absolute Lymphocyte Count 1.32 X10^3/uL (0.83-4.51); Absolute Neutrophil Count 12.1 X10^3/uL (2.0-7.7); Basophil# 0.02 X10^3/uL; Basophil% 0.1 % (0-1); Hematocrit 36.8 % (37-47); Hemoglobin 12.1 g/dL (12.0-15.0); Lymphocyte # 1.32 X10^3/ul (0.83-4.51); Lymphocyte % 9.4 % (19-41); Mean Corp Hgb Conc 32.9 g/dL (32-36); Mean Corpuscular Hgb 27.9 pg (27.0-32.0); Mean Platelet Vol. 10.3 fl (6.2-12.0); Monocyte# 0.36 X10^3/uL; Monocyte% 2.6 % (0-10); NRBC Flagged by Analyzer 0 % (0-5); Neutrophil # 12.14 X10^3/uL (2.7-7.7); Platelet Count 264 K/mm3 (150-450); RBC Distribution Width CV 12.8 % (11.6-14.6); RBC Distribution Width SD 39.7 fl (35.1-43.9); Red Blood Count 4.33 M/mm3 (4.2-5.4)
[2023-11-17 08:46] LABS: ALB/GLOB Ratio 0.9 RATIO (0.9-2.4); AST(SGOT) 15 U/L (15-37); Alanine Aminotransfer ALT/SGPT 26 U/L (13-56); Albumin, Serum 3.2 g/dL (3.2-5.0); Alkaline Phosphatase 75 U/L (45-117); Anion Gap 6 (5-15); BUN 17 mg/dL (7-18); BUN/Creat Ratio 15.2 RATIO (10-20); Calcium,Total 8.8 mg/dL (8.5-10.1); Chloride 103 mmol/L (98-107); Creatinine, Serum 1.12 mg/dL (0.55-1.02); EST Glomerular Filtration Rate 53 mL/min (>60); Est Glom Filt Rate - Afr Amer 64 mL/min (>60); Estimated Creatinine Clearance 71.83 ml/min; Globulin 3.4 g/dL (2.2-4.2); Glucose 166 mg/dL (74-106); Potassium 3.3 mmol/L (3.5-5.1); Protein, Total 6.6 g/dL (6.4-8.2); Sodium Level 135 mmol/L (136-145)
--- NOTE | 2023-11-17 10:41 | DS.PCM_ITS ---
Providers Date of Admission: 11/16/23 Date of Discharge: 11/17/23 Primary Care Physician: Dr. Ted Monroe, Consultations 11/16/23 08:18 Consult: Orthopedics Routine Consulting Provider: Osmin Bo Reason for Consult: Intractable L Knee pain EMERGENT Consult: No MD Notified: Yes Date Notified: 11/16/23 Time Notified: 07:18 Method of Notification: Text Reason For Visit: INTRACTABLE L KNEE PAIN Diagnosis Discharge Diagnosis (1) Intractable pain: Status: Acute Code(s): R52 - Pain, unspecified Plan Discharge Diagnoses: 1. Acute L knee gout flare w/ intractable L knee pain 2. Hypokalemia 3. Left sided breast cancer, unclear specific type 4. Hypertension 5. Suspected Chronic Kidney Disease Stage III, unclear subtype 6. Anxiety and depression 7. Morbid Obesity 8. Chronic migraines 9. Hyperlipidemia 10. ZEYNEP on CPAP nightly. 11. CODE status: Patient SHEILA is her children and living will is currently in place. Full Code status. Medications at Discharge Home Medications celecoxib 200 mg capsule 200 mg PO DAILY 10/10/13 hydrochlorothiazide 12.5 mg capsule 12.5 mg PO DAILY 05/29/18 metoprolol succinate 100 mg tablet,extended release 24 hr 100 mg PO QHS 05/29/18 fluoxetine 20 mg capsule 20 mg PO DAILY 09/26/18 ibuprofen 600 mg tablet 600 mg PO 4X/DAY pain or cramping #30 tabs 09/27/18 amlodipine 2.5 mg tablet 2.5 mg PO DAILY 11/16/23 oxycodone-acetaminophen 5 mg-325 mg tablet 1 tab PO Q6H PRN PRN Pain 3 days #12 TABLETS 11/16/23 rosuvastatin 10 mg tablet 10 mg PO QHS 11/16/23 prednisone 20 mg tablet 40 mg (2 x 20 mg) PO DAILY 7 days #14 tabs 11/17/23 Hospital Course Procedures - (L breast RODERICK drain removed.) Summary of Care Provided Minutes Spent on Discharge: 35 Hospital Course: The patient is a 63 y/o F w/ PMHx: Possible CKD stage III unclear subtype, Breast L sided CA s/p recent mastectomy at [facility] with RODERICK drain in place x 7 weeks (draining routinely 60 or 70 cc/day serosanguineous fluid), HTN, HLD, Chronic migraines, ZEYNEP on CPAP, Hx Nephrolithiasis, Anxiety and Depression who presented to the [facility] ED on 11/16/23 with 1 week history of left lower extremity progressively worsening discomfort specifically aching, behind the left knee, worse with weight bearing and being, improved with rest starting immediately after she stopped her celebrex secondary to concern for bleeding issues with th rombocytopenia per her Oncologist Dr. Lopez. Admitted to [facility], initially placed on IV Vanc and Cefepime, cultures returned unremarkable, DVT US negative, patient evaluated per Orthopedic surgery and recommended d/c abx, transition to steroids for Gout flare. Patient clinical improved overnight and was able to ambulate with assist devices. PT/OT/CM consulted to be cautious with recommendation for outpatient/home therapies. Patient discharged to home on prednisone therapy. Patient was uncertain of type but states potentially ductal carcinoma, status post recent left mastectomy approximately 7 weeks prior with RODERICK drain in place with ongoing drainage approximately 60 to 70 cc of serosanguineous fluid daily but 11/16/23 only 20 cc out. Discussed patient's status with her surgeon who performed her mastectomy Dr. Harper Lopez [phone] who requested that patient's drain be removed given drainage over the last day since presentation totaled only 20 cc. Per recommendation and review with surgeon patient's RODERICK suture was removed and RODERICK drain was uncapped to remove pressure and the RODERICK drain was slowly pulled out. There was no marked fluid and gauze dressing was placed over this. Continued daily dressings to this region w/ follow-up planned with her surgeon in 1 to 2 weeks for reassessment and encouraged routine follow-up with Oncology as already arranged. Admission BUN/Cr 15/1.15, baseline renal function last noted 0.8-0.9 however GFR has decreased, 11/17/23 BUN/Cr 17/0.12, GFR 53 noted thus suspect CKD stage III unclear subtype but recommended continued outpatient evaluation. Patient given improvement discharged to home in stable improved condition. Weight / BMI Weight Weight: 279 lb 5.211 oz Body Mass Index (BMI) 45.1 ABG / Lab / Microbiology Data 11/17/23 08:20 11/17/23 07:20 Laboratory: Laboratory Results - last 24 hr 11/17/23 07:20: Sodium 135 L, Potassium 3.3 L, Chloride 103, Carbon Dioxide 26.0, Anion Gap 6, BUN 17, Creatinine 1.12 H, Estim Creat Clear Calc 71.83, Est GFR (MDRD) Af Amer 64, Est GFR (MDRD) Non-Af 53 L, BUN/Creatinine Ratio 15.2, Glucose 166 H, Calcium 8.8, Total Bilirubin 0.80, AST 15, ALT 26, Alkaline Phosphatase 75, Total Protein 6.6, Albumin 3.2, Globulin 3.4, Albumin/Globulin Ratio 0.9 11/17/23 08:20: WBC 14.0 H, RBC 4.33, Hgb 12.1, Hct 36.8 L, MCV 85.0, MCH 27.9, MCHC 32.9, RDW Std Deviation 39.7, RDW Coeff of Danilo 12.8, Plt Count 264, MPV 10.3, Immature Gran % (Auto) 0.900, Neut % (Auto) 87.0 H, Lymph % (Auto) 9.4 L, [place] % (Auto) 2.6, Eos % (Auto) 0.0, Baso % (Auto) 0.1, Absolute Neuts (auto) 12.1 H, Absolute Lymphs (auto) 1.32, Nucleated RBC % 0 Microbiology: Microbiology 11/16/23 00:34 Fluid - Synovial (joint) Gram Stain - Final D/C Instructions Discharge Diet: Low fat / Low cholesterol May resume sexual activity in: - (Once knee pain has resolved.) Weight Bearing Status: Weight bearing as tolerated Call your doctor if you observe: Fever of 101 or Higher, Numbness or Tingling, Inability to urinate, Shortness of breath, Dizziness, Swelling in the ankles, Chest pain, Increased palpitations (irregular heartbeat), Calf discomfort and Uncontrolled pain Meaningful Use Info Meaningful Use Diagnoses (Choose all that apply): None applicable Discharge Plan Admission Admit Date/Time: 11/16/23 07:16 Primary Reason for Your Visit: Acute Left Knee Gouty Flare Attending Provider: Rama Su Primary Care Provider: Ted Monroe Consulting Providers: Osmin Bo Instructions Additional Instructions / Restrictions: ADDITIONAL DISCHARGE INFORMATION: --RODERICK drain removed during admission per your surgeon request. Please follow-up as recommended. In the interim, place dressings as needed and daily to this region. If any concerns arise contact your surgeon. --Please complete your steroid regimen and follow-up with your primary care physician and you may also follow-up with Orthopedic surgery. Please continue the prednisone 40 mg daily for the next 7 days and then discuss tapering with your primary care physician. Discharge Orders/Prescriptions Prescriptions: New oxycodone-acetaminophen [oxycodone-acetaminophen] 5-325 mg tablet 1 tab PO Q6H PRN PRN (Reason: Pain) 3 Days Qty: 12 0RF prednisone 20 mg tablet 40 mg PO DAILY 7 Days Qty: 14 0RF Rx Instructions: Please discuss tapering following this regimen with your primary care. Continued metoprolol succinate 100 MG tablet extended release 24 hr 100 mg PO QHS Patient Comments: hydrochlorothiazide 12.5 MG capsule 12.5 mg PO DAILY Patient Comments: fluoxetine 20 MG capsule 20 mg PO DAILY amlodipine 2.5 mg tablet 2.5 mg PO DAILY rosuvastatin 10 mg tablet 10 mg PO QHS Held celecoxib 200 MG capsule 200 mg PO DAILY Hold Instructions: Resume on 12/15/23. Please continue to hold this until allowed to resume per Oncology instruction. Patient Comments: pain ibuprofen 600 MG tablet 600 mg PO 4X/DAY Qty: 30 1RF Hold Instructions: Resume on 12/15/23. May hold until cleared to resume per Oncology. Discontinued cholecalciferol (vitamin D3) 2,000 unit tablet 2,000 unit tablet 5,000 unit PO DAILY 90 Days Qty: 90 Patient Comments: Therems-M 1 TABLET tablet 1 tab PO DAILY cholecalciferol (vitamin D3) 125 mcg (5,000 unit) capsule 125 mcg PO DAILY Referrals / Follow Up: Dr. Harper Lopez [Other] (Please follow-up in 1-2 weeks for re-evaluation following recent RODERICK drain removal.) Osmin Bo DO [Med Staff - Active Staff] - (Follow-up in 2-4 weeks for re-evaluation, may see TRANSPORTATION REFRIGERATION TECHNICIAN.) Ted Monroe DO [Primary Care Provider] - (Please follow-up in 3-5 days to review admission, consider taper after the burst steroid regimen.) Disposition Disposition (needs filled in before D/C Order can be placed): Home Health Service Charges/Coding Visit Charges Inpatient E&M: 31421 Disch Hosp >30min
--- NOTE | 2023-11-17 11:50 | CASEMGMT ---
Patient has order for discharge. Therapy recommending outpatient therapy when in room to discuss needs at discharge. Patient is not sure if she will need outpatient therapy but will take script if she would like to schedule at center of her choice. Patient denied needs at discharge, has walker. Patient states she has friend that will be staying with her. Script received for outpatient therapy and placed in discharge packet. Patient had no further questions or concerns.
--- NOTE | 2023-11-17 11:55 | PHA.DC_ITS ---
Pharmacy [facility] has performed discharge medication reconciliation and counseling for this patient. Percocet sent to [facility] retail, prednisone sent to [facility]. 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 1. OXYCODONE 5/325MG 1T PO Q6H PRN PAIN 2. PREDNISONE 40MG PO DAILY X 7 DAYS - PT TO FOLLOW UP WITH PCP FOR TAPER The patient's discharge medication list was reviewed for discrepancies and discrepancies were resolved. The patient was counseled on the following discharge medications and changes in medications for homegoing were reviewed. The Reason for Use, instructions for use, and potential side effects were reviewed for all new medications. The patient's questions regarding all of their medications were answered. The patient was able to verbally demonstrate an understanding of their discharge medications. Patient counseled by pharmacy operations specialist, Venkat. Medications at Discharge Home Medications celecoxib 200 mg capsule 200 mg PO DAILY 10/10/13 hydrochlorothiazide 12.5 mg capsule 12.5 mg PO DAILY 05/29/18 metoprolol succinate 100 mg tablet,extended release 24 hr 100 mg PO QHS 05/29/18 fluoxetine 20 mg capsule 20 mg PO DAILY 09/26/18 ibuprofen 600 mg tablet 600 mg PO 4X/DAY pain or cramping #30 tabs 09/27/18 amlodipine 2.5 mg tablet 2.5 mg PO DAILY 11/16/23 oxycodone-acetaminophen 5 mg-325 mg tablet 1 tab PO Q6H PRN PRN Pain 3 days #12 TABLETS 11/16/23 rosuvastatin 10 mg tablet 10 mg PO QHS 11/16/23 prednisone 20 mg tablet 40 mg (2 x 20 mg) PO DAILY 7 days #14 tabs 11/17/23
[2023-11-17 12:26] VITALS: BP 135/66; PULSE 60; RESP 18; TEMP 36.4; O2SAT 97
[2023-11-17] MEDS: Potassium Chloride Oral Soln 20 MEQ/15 ML UDC 40 MEQ PO (14:06)
== END 2023-11-17 14:05 | disposition home health service (06) ==
LOC: ED 11-16 04:17 → MS3 11-16 07:23
PROVIDERS: Admitting Provider Family Medicine; Emergency Provider Emergency Medicine; PCP Student in an Organized Health Care Education/Training Program; Visit Provider Family Medicine
DX: M10.362 Gout due to renal impairment, left knee (principal); E66.01 Morbid (severe) obesity due to excess calories; C50.912 Malignant neoplasm of unspecified site of left female breast; N18.30 Chronic kidney disease, stage 3 unspecified; Z79.52 Long term (current) use of systemic steroids; G47.33 Obstructive sleep apnea (adult) (pediatric); I12.9 Hypertensive chronic kidney disease with stage 1 through stage 4 chronic kidney disease, or unspecified chronic kidney disease; M17.12 Unilateral primary osteoarthritis, left knee; E78.5 Hyperlipidemia, unspecified; E87.6 Hypokalemia; G43.709 Chronic migraine without aura, not intractable, without status migrainosus; Z79.899 Other long term (current) drug therapy; F32.A Depression, unspecified; F41.9 Anxiety disorder, unspecified; M79.605 Pain in left leg; Z86.2 Personal history of diseases of the blood and blood-forming organs and certain disorders involving the immune mechanism
CPT/HCPCS: 20610; 36415; 73562; 80048; 80053; 83735; 84100; 84550; 85025; 85027; 85610; 85652; 85730; 86140; 87070; 87075; 87205; 89050; 89051; 89060; 93971; 94668; 96361; 96365; 96366; 96367; 96375; 96376; 97162; 97166; 97530; 97535; 99221; 99283; J7030; J7040; A4216; G0378

== ENCOUNTER 2023-11-19 05:39 | Inpatient (IN) | payer OTHER, SELFPAY ==
[2023-11-19] VITALS (10 sets, daily range): BP systolic 105–161; BP diastolic 58–73; PULSE 57–75; RESP 16–28; TEMP 36.5–36.8; O2SAT 91–95; BMI 46.1
--- NOTE | 2023-11-19 06:17 | CT_ITS ---
EXAM: CT ANGIOGRAPHY CHEST WITHOUT AND WITH INTRAVENOUS CONTRAST CLINICAL INDICATION: SOB TECHNIQUE: Helically acquired angiography images were obtained of the chest without and with intravenous contrast. This CT exam was performed using one or more of the following dose reduction techniques: automated exposure control, adjustment of the mA and/or kV according to patient size, and/or use of iterative reconstruction technique. MIP reconstructed images were created and reviewed. CONTRAST: IV 100mL Isovue-370 RADIATION DOSE: CTDIvol = 17.42 mGy, DLP = 601.59 mGy-cm COMPARISON: No relevant prior studies available. FINDINGS: PULMONARY ARTERIES: Unremarkable. Normal in caliber. No evidence of pulmonary embolism. AORTA: Unremarkable. Normal in caliber. No evidence of dissection. GREAT VESSELS OF AORTIC ARCH: Unremarkable. Normal in caliber. No evidence of dissection. LUNGS AND PLEURAL SPACES: Unremarkable. No mass. No consolidation or edema. No pleural effusion or thickening. No pneumothorax. HEART: Unremarkable. Heart size is normal. No pericardial effusion. No significant coronary artery calcifications. MEDIASTINUM: Unremarkable. No mediastinal or hilar adenopathy. Esophagus is unremarkable. No hiatal hernia. THYROID: Unremarkable. No thyroid lesions. BONES/JOINTS: Unremarkable. No suspicious lytic or blastic abnormality. SOFT TISSUES: Postsurgical absence of the left breast. CT/CTA Chest W/WO Contrast IMPRESSION: Postsurgical absence of the left breast otherwise negative CTA chest.. Electronically Signed: Candido Graham MD at 8:14 EST ,
[2023-11-19 06:38] LABS: Absolute Lymphocyte Count 0.74 X10^3/uL (0.83-4.51); Absolute Neutrophil Count 6.8 X10^3/uL (2.0-7.7); Basophil# 0.01 X10^3/uL; Basophil% 0.1 % (0-1); Eosinophil# 0.04 X10^3/uL; Eosinophils% 0.5 % (0-5); Hematocrit 34.3 % (37-47); Hemoglobin 11.2 g/dL (12.0-15.0); Lymphocyte # 0.74 X10^3/ul (0.83-4.51); Lymphocyte % 8.6 % (19-41); Mean Corp Hgb Conc 32.7 g/dL (32-36); Mean Corpuscular Hgb 28.1 pg (27.0-32.0); Mean Platelet Vol. 11.9 fl (6.2-12.0); Monocyte# 1.03 X10^3/uL; Monocyte% 11.9 % (0-10); NRBC Flagged by Analyzer 0 % (0-5); Neutrophil # 6.76 X10^3/uL (2.7-7.7); Neutrophil % 78.3 % (47-70); POSITIVE COUNT YES; RBC Distribution Width CV 13.4 % (11.6-14.6); RBC Distribution Width SD 42.5 fl (35.1-43.9); Red Blood Count 3.99 M/mm3 (4.2-5.4); White Blood Count 8.6 K/mm3 (4.4-11.0)
--- OUTSIDE RECORDS SUMMARY | 2023-11-19 06:45 | XMS RPT_ITS | CCD ---
Author Name Unknown Address [address] [place] [address] Organization [facility] Care Team Providers Care Surveyor Helper Rod Name Role Phone Ted Monroe DO Primary Care Provider Ted Monroe DO Primary Care Provider Ismael JOHNSON MD, Jacoby Unavailable PROVIDER, UNKNOWN Referring Unavailable PROVIDER, UNKNOWN Primary Care Unavailable PROVIDER, UNKNOWN Primary Care Unavailable PROVIDER, UNKNOWN Referring Unavailable PROVIDER, UNKNOWN Primary Care Unavailable PROVIDER, UNKNOWN Referring Unavailable Jacoby Guevara MD Unavailable TED MONROE Primary Care Unavailable LESLEE, MARIA VICTORIA Referring Unavailable MONROE TED Young Primary Care Unavailable HARPER LOPEZ A Attending Unavailable TED MONROE Referring Unavailable MONROE, TED Young Primary Care Unavailable SARAH LINK Attending Unavailable HARPER LOPEZ A Referring Unavailable MONROETED Primary Care Unavailable LESLEE, MARIA VICTORIA Referring Unavailable JOHN HARPER A Attending Unavailable JOHN HARPER A Admitting Unavailable ANDREW LOPEZ Referring Unavailable MONROETED Primary Care Unavailable JOHN, HARPER Referring Unavailable LESLEE, MARIA VICTORIA Attending Unavailable FER TED Young Primary Care Unavailable ISMAEL DAYVESUNG Referring Unavailable JACOBY GUEVARA Attending Unavailable MONROETED SILVERMAN Primary Care Unavailable LESLEEDOUGLASCY Attending Unavailable MONROE TED Young Primary Care Unavailable JOHN, HARPER Referring Unavailable MONROE, TED L Primary Care Unavailable AMPARO ROBLEDO Attending Unavailable MONROETED Primary Care Unavailable STANLEY PRESCOTT Referring Unavailable MONROE, TED Vidal Primary Care Unavailable JM MCGUIRE Referring Unavailable MONROE, TED Vidal Primary Care Unavailable LESLEE, MARIA VICTORIA Referring Unavailable MONROE, TED L Primary Care Unavailable JOON, CORWIN P Attending Unavailable MONROE, TED L Primary Care Unavailable LESLEE, MARIA VICTORIA Referring Unavailable MONROE, TED L Primary Care Unavailable LESLEE, MARIA VICTORIA Referring Unavailable MONROE, TED L Primary Care Unavailable MASCI, ANDREW A Referring Unavailable MASCI, ANDREW A Attending Unavailable MONROE, TED L Primary Care Unavailable JOON, CORWIN P Attending Unavailable MONROE, TED L Primary Care Unavailable MONROE, TED L Referring Unavailable JOON, CORWIN P Attending Unavailable MONROE, TED L Primary Care Unavailable MONROE, TED L Referring Unavailable JOON, CORWIN P Referring Unavailable MONROE, TED L Primary Care Unavailable MONROE, TED L Primary Care Unavailable KEYANNA RAMIREZ Referring Unavailable MONROE, TED L Primary Care Unavailable KEYANNA RAMIREZ Referring Unavailable MONROE, TED L Primary Care Unavailable JOHN, HARPER Attending Unavailable MONROE, TED L Primary Care Unavailable MONROE, TED L Primary Care Unavailable DIANNE ALVARENGA Referring Unavailable JOHN, HARPER Referring Unavailable JACOBY GUEVARA Attending Unavailable MONROE, TED L Primary Care Unavailable JOHN, HARPER Referring Unavailable MASCI, ANDREW A Attending Unavailable MONROE, TED L Primary Care Unavailable MONROE, TED L Primary Care Unavailable MONROE, TED L Referring Unavailable MONROE, TED L Primary Care Unavailable MONROE, TED L Referring Unavailable MASCI, ANDREW A Referring Unavailable MASCI, ANDREW A Attending Unavailable MONROE, TED L Primary Care Unavailable Medications Current Medications Medication Drug Class(es) Dates Sig (Normalized) Sig (Original) CPAP/BIPAP/OTHER (20 sources) Start: 12-31-2022 End: 05-17-2050 CPAP/BIPAP/OTHER Type .CPAPSettings into a note to see current settings/supplies/DM E information. 1 Each 0 12/31/2022 05/17/2050 Active Completed/Discontinued Medications Medication Drug Class(es) Dates Sig (Normalized) Sig (Original) Acetaminophen (4 sources) take 2 tablets by mo uth every eight hours as needed acetaminophen (TYLENOL ORAL) Take 2 tablets by mouth every 8 hours as needed. 0 Active Problems Active Problems Problem Classification Problem [...] Chronic Other nutritional; endocrine; and metabolic disorders (10 sources) Severe obesity; Translations: [Morbid (severe) obesity due to excess calories] Onset: 4 09-20-2023 Chronic Other nutritional; endocrine; and metabolic disorders (1 source) Morbid (severe) obesity due to excess calories; Translations: [Class 3 severe obesity due to excess calories with serious comorbidity and body mass index (BMI) of 45.0 to 49.9 in adult (FORMERLY [facility])] Onset: 3 Chronic Other nutritional; endocrine; and metabolic disorders (1 source) Body mass index (BMI) 45.0-49.9, adult; Translations: [Class 3 severe obesity due to excess calories with serious comorbidity and body mass index (BMI) of 45.0 to 49.9 in adult (FORM[facility]LY [facility])] Onset: 3 Chronic Other screening for suspected conditions (not mental disorders or infectious disease) (20 sources) Endometrium thickened; Translations: [Abnormal findings on diagnostic imaging of other specified body structures] Onset: 8 09-13-2018 Chronic Residual codes; unclassified (20 sources) Obstructive sleep [...] breast in female, estrogen receptor positive (HCC) (FORMERLY [facility])] Onset: 3 Episodic Secondary malignancies (2 sources) Secondary and unspecified malignant neoplasm of axilla and upper limb lymph nodes; 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FORM[facility]LY [facility])] Onset: 4 Chronic Spondylosis; intervertebral disc disorders; [...] joint, lower leg] Onset: 08-24-2018 08-24-2018 Episodic Other screening for suspected conditions (not mental disorders or infectious disease) (20 sources) Patient encounter status; Translations: [Encounter for screening for malignant neoplasm of colon] Onset: 04-15-2015 Episodic Urinary tract infections (20 sources) Urethritis; Translations: [Other urethritis] Onset: 04-12-2018 04-12-2018 Episodic Results Test Name Value Interpretation Reference Range Facil ity Vital Signs Date Time Vital Sign Value Performing Clinician Faci rockyy 09-20-2023 13:58-0500 Body height 167.6 cm Pacc 1 Work Phone: [facility] 09-20-2023 13:58-0500 Body temperature 97.11 [degF] Pac 1 Work Phone: [facility] 09-20-2023 13:58-0500 Body weight 130.64 kg Pacc 1 Work Phone: [facility] 09-20-2023 13:58-0500 Diastolic blood pressure 72 mm[Hg] Pacc 1 Work Phone: [facility] 09-20-2023 13:58-0500 Heart rate 64 /min Pacc 1 Work Phone: [facility] 09-20-2023 13:58-0500 Respiratory rate 16 /min Pacc 1 Work Phone: [facility] 09-20-2023 13:58-0500 SaO2% (BldA) [Mass fraction] 94 % Pacc 1 Work Phone: [facility] 09-20-2023 13:58-0500 Systolic blood pressure 128 mm[Hg] Pacc 1 Work Phone: [facility] 09-20-2023 09:37-0500 Body temperature 97.59 [degF] Jacoby Guevara MD, MD Work Phone: [facility] 09-20-2023 09:37-0500 Body weight 130.86 kg Jacoby Guevara MD, MD Work Phone: [facility] 09-20-2023 09:37-0500 Diastolic blood pressure 76 mm[Hg] Jacoby Guevara MD, MD Work Phone: [facility] 09-20-2023 09:37-0500 Heart rate 52 /min Jacoby Guevara MD, MD Work Phone: [facility] 09-20-2023 09:37-0500 Respiratory rate 15 /min Jacoby Guevara MD, MD Work Phone: [facility] 09-20-2023 09:37-0500 SaO2% (BldA) [Mass fraction] 96 % Jacoby Guevara MD, MD Work Phone: [facility] 09-20-2023 09:37-0500 Systolic blood pressure 137 mm[Hg] Jacoby Guevara MD, MD Work Phone: [facility] 08-27-2023 13:00-0500 Body weight 130.3 kg Harper Lopez DO Work Phone: [facility] 03-23-2022 11:32-0400 Diastolic blood pressure 71 mm[Hg] Corwin Norton MD Work Phone: [facility] 03-23-2022 11:32-0400 Heart rate 54 /min Corwin Norton MD Work Phone: [facility] 03-23-2022 11:32-0400 Respiratory rate 16 /min Corwin Norton MD Work Phone: [facility] 03-23-2022 11:32-0400 SaO2% (BldA) [Mass fraction] 95 % Corwin Norton MD Work Phone: [facility] 03-23-2022 11:32-0400 Systolic blood pressure 133 mm[Hg] Corwin Norton MD Work Phone: [facility] 03-23-2022 09:56-0400 Body temperature 98.49 [degF] Corwin Norton MD Work Phone: [facility] 03-23-2022 09:56-0400 Body weight 120.2 kg Corwin Norton MD Work Phone: [facility] Encounters Encounter Date Encounter Type Care Provider Facility Start: 11-18-2023 ambulatory Sanam Ese hurley LPN Work Phone: [facility] Procedures Date Procedure Procedure Detail Performing Clinician Start: 10-08-2023 Antibody screen TED MONROE Plan of Treatment Date Care Activity Detail Author Start: 03-23-2032 Colonoscopy COLONOSCOPY [facility] Start: 03-23-2032 COLORECTAL CANCER SCREENING COLORECTAL CANCER SCREENING [facility] Start: 03-23-2032 Screening for malign ant neoplasm of colon [facility] Start: 08-02-2029 Urine microalbumin profile [facility] Start: 04-28-2028 PAP TESTING PAP TESTING [facility] Start: 04-28-2028 Screening for malign ant neoplasm of cervix Pap Testing [facility] Start: 11-14-2027 Lipid 1996 panel - S dharmesh or Plasma Lipid Screening [facility] Start: 11-14-2027 Lipid panel Lipid Screening [facility] Start: 11-14-2027 LIPID SCREEN LIPID SCREEN [facility] Start: 03-23-2027 Colonoscopy COLONOSCOPY [facility] Start: 03-23-2027 COLORECTAL CANCER SCREENING COLORECTAL CANCER SCREENING [facility] Start: 10-09-2026 Diabetes Screening Diabetes Screenin g [facility] Start: 09-23-2026 Diabetes Screening Diabetes Screenin g [facility] Start: 09-20-2026 Diabetes Screening Diabetes Screenin g [facility] Start: 05-22-2026 LIPID SCREEN LIPID SCREEN [facility] Start: 11-14-2025 DIABET[facility]CRE[facility] Start: 11-14-2025 Diabetes Screening Diabetes Screenin g [facility] Start: 09-12-2025 PAP TESTING PAP TESTING [facility] Start: 09-20-2024 BP Controlled (<130/80) BP Controlle d (<130/80) [facility] Start: 08-03-2024 Mammography Mammogram Screening [facility] Start: 08-03-2024 Screening for malign ant neoplasm of breast Mammogram Screening [facility] Start: 07-02-2024 Mammography Mammogram Screening [facility] Start: 05-22-2024 DIABETES SCREEN DIABETES SCREEN [facility] Start: 12-03-2023 ANNUAL PCP TEAM WELL TENDER JAZMINE DISEASE VISIT ANNUAL PCP TEAM CHRONIC DISEASE VISIT [facility] Start: 12-03-2023 BP CONTROLLED (<130/80) BP CONTROLLE D (<130/80) [facility] Start: 12-03-2023 COVID-19 VACCINE (4 - Booster for Pfizer series) COVID-19 VACCINE (4 - Booster for Pfizer series) [facility] Immunizations Immunization Date Immunization Notes Care Provider Jeri aceves 08-24-2019 influenza virus vaccine, unspecified formulation Milly Hodge APRN.WAREHOUSE SHIPPING CLERK Work Phone: [facility] 08-02-2019 tetanus toxoid, redu asif diphtheria toxoid, and acellular pertussis vaccine, adsorbed Beth Maguire PLASTICS TOOLING ENGINEER.WAREHOUSE SHIPPING CLERK Work Phone: [facility] 08-13-2018 influenza, injectabl e, quadrivalent, contains preservative Beth Maguire PLASTICS TOOLING ENGINEER.WAREHOUSE SHIPPING CLERK Work Phone: [facility] 07-27-2017 influenza, injectabl e, quadrivalent, contains preservative Beth Maguire PLASTICS TOOLING ENGINEER.WAREHOUSE SHIPPING CLERK Work Phone: [facility] 2016 tetanus toxoid, redu asif diphtheria toxoid, and acellular pertussis vaccine, adsorbed Beth Maguire PLASTICS TOOLING ENGINEER.WAREHOUSE SHIPPING CLERK Work Phone: [facility] 08-11-2016 influenza, injectabl e, quadrivalent, contains preservative Beth Maguire PLASTICS TOOLING ENGINEER.WAREHOUSE SHIPPING CLERK Work Phone: [facility] 07-06-2013 influenza virus vaccine, unspecified formulation Beth Maguire PLASTICS TOOLING ENGINEER.WAREHOUSE SHIPPING CLERK Work Phone: [facility] Work Phone: Payers Date Payer Category Payer Unknown [id number] 2020 Unknown [facility] [employer] [id number] 2020-Present [phone] [address] [place] [address] PPO [id number] 2020 Unknown [id number] Social History Date Type Detail Facility Tobacco smoking stat [facility] Never smoked tobacco [facility] Work Phone: Start: 02-11-2022 End: 11-09-2023 Alcohol intake Current drinker of alcohol (finding) [facility] Start: 05-31-2021 End: 12-03-2022 History SDOH Alcohol Frequency 2 [facility] Start: 05-31-2021 End: 12-03-2022 History SDOH Alcohol Std Drinks 1 [facility] Start: 05-31-2021 End: 12-03-2022 History SDOH Social Connections Phone 5 [facility] Start: 05-31-2021 History SDOH Social Connections Get Together 4 [facility] Start: 05-31-2021 End: 12-03-2022 History SDOH Physical Activity DPW 0 [facility] Start: 05-15-2020 Education 18 [facility] Start: 1960 Sex Assigned At Female [facility] Start: 01-30-2022 End: 05-08-2022 Exposure to SARS-CoV-2 (event) Not sure [facility] Start: 11-12-2022 End: 12-03-2022 History SDOH Social Connections Get Together 3 [facility] Start: 12-03-2022 End: 08-11-2023 History of Social function [facility] Start: 12-03-2022 End: 08-11-2023 Social connection and isolation panel [facility] Do you belong to any clubs or organizations such as moravian groups, unions, fraternal or athletic groups, or school groups? Yes [facility] Are you now , , , , never or living with a partner? [facility] How often to you hav e a drink containing alcohol? Monthly or less [facility] How many standard dr inks containing alcohol do you have on a typical day? 1 or 2 [facility] How often do you hav e 6 or more drinks on 1 occasion? Never [facility] How hard is it for y ou to pay for the very basics like food, housing, medical care, and heating Not hard at all [facility] Do you feel stress - tense, restless, nervous, or anxious, or unable to sleep at night because your mind is troubled all the time - these days [OSQ] Only a little [facility] (I/We) worried wheth er (my/our) food would run out before (I/we) got money to buy more. Never true [facility] In the past 12 month s, was there a time when you were not able to pay the mortgage or rent on time? No [facility] Start: 03-10-2019 Gender identity Identifies as female gender (finding) [facility] Start: 03-10-2019 Sexual orientation Heterosexual (finding) [facility] Start: 08-27-2023 Alcohol Comment rare [facility] Medical Equipment Procedure Code Equipment Code Equipment Origin al Text Equipment Identifier Dates Start: 06-17-2021 End: 01-25-2023 Clinical Notes 02-11-2022 to 11-18-2023 Telephone Encounter - Harper Ortega RN - 11/18/2023 12:39 PM ESTTelephone Encounter - Vinod Rod - 11/16/2023 11:47 AM Sanam Hernandez LPN - 09/30/2023 10:43 AM ESTPatient Instructions Note Date & Type Note Facility 11-18-2023 Miscellaneous Notes Standard written order for machine supplies received, signed by Dr. Bertrand and faxed to [facility] [place]. Last office visit with Dr. Bertrand 03-24-2022. Routing to scheduling to assist patient with scheduling a follow up appointment. documented in this encounter [facility] 11-16-2023 Miscellaneous Notes Tristian, Patient returned Dr. Lopez's call. Per patient she missed it as she is in [facility] with legs complaint. Patient is requesting a call from Dr. Lopez, as she has access to her phone now. Thank you documented in this encounter [facility] 11-16-2023 Miscellaneous Notes Called and left message inquiring about her mastectomy drain and recent Oncotype results. John documented in this encounter [facility] 11-09-2023 Note HNO ID: [id number] Author: ANDREW LOPEZ DO Service: ? Author Type: Physician Type: [...] Stain intensity: moderate to strong Progesterone Receptor (ND) Positive 51-60 % Stain intensity: moderate to [...] A. Breast, left, mastectomy: ---Invasive ductal carcinoma, [place] grade 2 (of 3), situated in the [...] of no special type (ductal) Histologic Grade (Rhiannon Histologic Score) Glandular (Acinar) / Tubular Differentiation Score 3 Nuclear Pleomorphism Score 2 Mitotic Rate Score 1 Overall Grade Grade 2 (scores of 6 or 7) Tumor Size Greatest dimension of largest invasive focus (Millimeters): 35 mm Tumor Focality Single focus of invasive carcinoma Ductal Carc (more content not included)... [facility] 11-03-2023 Note HNO ID: [id number] Author: MICHA HOYOS CNMT Service: Radiology Author [...] 10:15 PATIENT DISCHARGED TO: Ambulatory patient, left [place] department area. A Diagnostic radioactive procedure has taken place, with no further precautions necessary other than routine body substance precautions. More information regarding radiation safety can be found using this link: [email or web address] SIGNATURE: SUN Restrepo PATIENT NAME: Ramona Villegas DATE: November 03, 2023 TIME: 11:00 AM PAGER/CONTACT #: [facility] 11-01-2023 Note HNO ID: [id number] Author: JOY HUNT RT(R) Service: ? Author Type: Lens Grinder Type: Progress Notes Filed: 11/01/2023 13:44 Note [...] DATE: November 01, 2023 TIME: 1:44 PM [facility] 10-29-2023 Note HNO ID: [id number] Author: JACOBY GUEVARA MD Service: ? Author Type: Physician Type: Progress Notes Filed: 10/29/2023 15:11 Note Text: Radiation Oncology - Follow Up Note PATIENT NAME: Ramona Villegas PATIENT DIAGNOSIS: Stage IB, pT2 pN2a (sn), grade 2 invasive ductal carcinoma of the left breast s/p left mastectomy and sentinel node biopsy. Positive extranodal extension. It's ER positive (91-100%, moderate to strong), ND positive (51-60%, moderate to strong) and Her2 [...] It's ER positive (91-100%, moderate to strong), ND positive (51-60%, moderate to strong) and Her2 [...] management options and (more content not included)... [facility] 10-28-2023 Note HNO ID: [id number] Author: GLADYS MESSINA MD Service: ? Author [...] options Anatomic stage: pathological prognostic stage IB ([id number]) invasive ductal carcinoma with ER+, ND+, HER2 negative status. Pathway discussed: Yes Clinical [...] old lady with Pathological prognostic stage IB ([id number]) invasive ductal carcinoma with ER+, ND+, HER2 negative status Bleeding issues requiring evacuation [...] and patient, after full discussion as appropriate. [facility] 10-20-2023 Note HNO ID: [id number] Author: MARIA VICTORIA CAMILO PA-C Service: ? Author Type: Physician Qc Chemist Type: Progress Notes Filed: 10/20/2023 15:27 Note [...] A. Breast, left, mastectomy: ---Invasive ductal carcinoma, [place] grade 2 (of 3), situated in the [...] of no special type (ductal) Histologic Grade ([place] Histologic Score) Glandular (Acinar) / Tubular Differentiation [...] Examined (sentinel and non-sentinel) 4 Number of Davidson Nodes Examined 4 pTNM CLASSIFICAT (more content not included)... [facility] 10-19-2023 Note HNO ID: [id number] Author: ANDREW LOPEZ, DO Service: ? Author [...] Stain intensity: moderate to strong Progesterone Receptor (ND) Positive 51-60 % Stain intensity: moderate to [...] of no special type (ductal) Histologic Grade (Rhiannon Histologic Score) Glandular (Acinar) / Tubular Differentiation Score 3 Nuclear Pleomorphism Score 2 Mitotic Rate Score 1 Overall Grade Grade 2 (scores of 6 or 7) Tumor Size Greatest dimension of largest invasive focus (Millimeters): 35 mm Tumor Focality Single focus of invasive carcinoma Ductal Carc (more content not included)... [facility] 10-13-2023 Note HNO ID: [id number] Author: Maria Victoria Camilo PA-C Service: ? Author Type: Physician Qc Chemist Type: Progress Notes Filed: 10/13/2023 11:25 AM [...] Dr. Lopez (Breast Surgeon) Ted Monroe [address] [place] [address] [facility] 10-10-2023 Note HNO ID: [id number] Author: Valente Jesus Service: Pharmacy Author Type: ? Type: Plan of Care Filed: 10/13/2023 11:12 AM Note Text: PHARMACY BEDSIDE DELIVERY SERVICE Patient Name: Ramona Villegas The marked outpatient medications were filled at [facility] pharmacy and picked up at the [...] I take this medication? Valente Jesus PAGER: [phone] October 13, 2023 11:11 AM [facility] 10-10-2023 Note HNO ID: [id number] Author: Shakir Ji MD Service: General Surgery [...] Surgery PGY-2 Nory Crocker (General Surgery) pager: [phone] Between 6p-6a or Sat/Sun, please page general surgery medical receptionist assistant [phone] On exam: BP 139/56 Pulse 69 Temp [...] 0659 10/10/23 07 - 10/11/23 0659 Shift 8404-6492 7400-4517 3858-4543 24 Hour Total 7359-1155 5288-3479 1725-5327 24 Hour Total INTAKE PO 168 850 5189 PO 599 085 4338 IV 950 950 Volume (mL) (lactated ringers iv infusion) 950 950 Shift Total 3761 894 4525 OUTPUT Urine 850 058 385 7749 Void (ml) 550 357 276 2997 Output ([REMOVED] Indwelling Urinary Catheter 10/08/23 1736 Greco 16 Fr 10/09/23 0739) 300 300 Tubes 392 50 40 482 Drain/Tube Output (Drain/Tube 10/08/23 1833 Eliazar Steve Left Lower Breast Drain #1) 0 0 0 0 Drain/Tube Output (Drain/Tube 10/08/23 1833 Eliazar Steve Left Lateral;Lower Breast Drain #2) 392 50 40 482 Shift Total 1242 650 804 7911 Weight (kg) Current Medications: Current Facility-Administered Medications [...] to proceed with today?s plan of care. [facility] 10-09-2023 Note HNO ID: [id number] Author: Paulette Jade MD Service: General Surgery [...] Paulette Jade MD General Surgery Resident, PGY-1 [facility] 10-09-2023 Note HNO ID: [id number] Author: Brice Rivas MD Service: General Surgery [...] 09, 2023 TIME: 8:51 AM PAGER/CONTACT #: [phone] [id number] [facility] 10-09-2023 Note HNO ID: [id number] Author: Shakir Ji MD Service: General Surgery [...] Dr. John Ji MD General Surgery PGY-2 [facility] (General Surgery) pager: [phone] Between 6p-6a or Sat/Sun, please page general surgery medical receptionist assistant [phone] On exam: BP (!) 122/47 Pulse 80 [...] Labs 10/09/23 0707 10/08/23 1535 10/08/23 0055 10/07/235 09/20/23 1445 TPROT 5.1* 5.3* -- 6.0* [...] 0659 10/09/23 07 - 10/10/23 0659 Shift 4645-2052 0595-4290 9827-8572 24 Hour Total 8870-9699 1048-1542 3290-6896 24 Hour Total INTAKE IV 2803 603 2264 950 950 Volume (mL) (lactated ringers 1,000 [...] 1050 2150 950 950 OUTPUT Urine 200 1268 461 3654 300 300 Void (ml) 200 200 OR Urine Output 600 600 Output ([REMOVED] Indwelling Urinary Catheter 10/08/23 1736 Greco 16 Fr 10/09/23 0739) 316 098 0071 300 300 Tubes 310 75 385 260 260 Drain/Tube Output ([REMOVED] Drain/Tube 10/07/23 1532 [facility] Cesar Left Lower Breast Drain #1 10/08/23 174) 130 130 Drain/Tube Output ([REMOVED] Drain/Tube 10/07/23 1532 [facility] Cesar Left Breast Drain #2 10/08/23 174) 180 180 Drain/Tube Output (Drain/Tube 10/08/23 183 Eliazar Steve Left Lower Breast Drain #1) 15 15 0 0 Drain/Tube Output (Drain/Tube 10/08/23 1833 Eliazar Steve Left Lateral;Lower Breast Drain #2) 60 60 260 260 Blood 50 50 Estimated Blood loss 50 50 Shift Total 510 4330 194 9396 560 560 Weight (kg) Current Medications: Current [...] with the multidisc (more content not included)... [facility] [place] 10-08-2023 Note HNO ID: [id number] Author: Janie Castro APRN.MEDICAL INFORMATION OFFICER Service: Anesthesiology Author Type: Nurse Unit Coordinator Type: Anesthesia Procedure Notes Filed: 10/08/2023 5:47 [...] Imaging Guidance Used: No SIGNATURE: Janie Floyd APRN.MEDICAL INFORMATION OFFICER PATIENT NAME: Ramona Villegas DATE: October 08, 2023 TIME: 5:47 PM CSN: [id number] [facility] [place] 10-08-2023 Note HNO ID: [id number] Author: Janie Castro APRN.CRNA Service: Anesthesiology Author Type: Nurse Unit Coordinator Type: Anesthesia Procedure Notes Filed: 10/08/2023 5:47 PM Note Text: ANESTHESIOLOGY PROCEDURE NOTE Airway General Information Procedure Start Time/Medication Administration: 10/08/2023 5:35 PM Patient location during procedure: OR Staffing MEDICAL INFORMATION OFFICER: Janie Castro APRN.MEDICAL INFORMATION OFFICER Performed by: ALIYA Indications and Patient Condition [...] 1 Airway not difficult SIGNATURE: Janie Floyd APRN.MEDICAL INFORMATION OFFICER PATIENT NAME: Ramona Villegas DATE: October 08, 2023 TIME: 5:46 PM CSN: [id number] [facility] [place] 10-08-2023 Note HNO ID: [id number] Author: Harper Lopez DO Service: General Surgery [...] pt symptomatic. Harper Lopez DO Breast Surgeon [facility] [place] 10-08-2023 Note HNO ID: [id number] Author: Brice Rivas MD Service: General Surgery [...] for take-back to OR Brice Rivas MD [facility] [place] 10-08-2023 Note Education (BELEN) RAMONA VILLEGAS ([id number]) 1960 F Date Time Provider Department 10/08/23 [...] Encounter Status:Closed by EMY BURKETT on 10/08/23 [facility] [place] 10-08-2023 Note HNO ID: [id number] Author: Emy Burkett RN Service: ? Author [...] for post-op follow-up assessment. Emy Burkett RN [facility] [place] 10-08-2023 Note HNO ID: [id number] Author: Raya Sosa MD Service: General Surgery [...] , PT , INR in the last 54805 hours. Cardiac Enzymes Intake and Output: Date 10/07/23 07 - 10/08/23 0659 10/08/23 07 - 10/09/23 0659 Shift 1723-7467 8637-5016 2471-9950 24 Hour Total 1440-8080 7545-8129 6916-6673 24 Hour Total INTAKE IV 210 1000 [...] 310 310 Drain/Tube Output (Drain/Tube 10/07/23 1532 [facility] Cesar Left Lower Breast Drain #1) 190 70 260 130 130 Drain/Tube Output (Drain/Tube 10/07/23 [facility] Cesar Left Breast Drain #2) 115 110 [...] to proceed with today?s plan of care. [facility] [place] 10-08-2023 Note HNO ID: [id number] Author: Chintan Emery MD Service: General Surgery [...] during weekdays: [facility] (Trauma, General Surgery): [phone] [facility] (Bariatrics, HPB) : [phone] [facility]: [phone] [facility]: [phone] [facility]: [id number] For team paging after 6PM or on weekend / holidays: [phone] [facility] [place] 10-07-2023 Note HNO ID: [id number] Author: Digna Noel APRN.MEDICAL INFORMATION OFFICER Service: Nursing Author Type: Nurse Unit Coordinator Type: Anesthesia Procedure Notes Filed: 10/07/2023 2:34 PM Note Text: ANESTHESIOLOGY PROCEDURE NOTE Airway General Information Procedure Start Time/Medication Administration: 10/07/2023 1:57 PM Patient location during procedure: OR 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 Staffing Anesthesiologist: Sarah Jameson MD MEDICAL INFORMATION OFFICER: Digna Noel APRN.MEDICAL INFORMATION OFFICER Performed by: MEDICAL INFORMATION OFFICER Indications and Patient Condition Indications for airway [...] Dentition same as preop SIGNATURE: Digna Noel APRN.MEDICAL INFORMATION OFFICER PATIENT NAME: Ramona Villegas DATE: October 07, 2023 TIME: 2:32 PM CSN: [id number] [facility] [place] 10-07-2023 Note HNO ID: [id number] Author: Michael Mosley [employer] Service: Nuclear Medicine Author Type: Lens Grinder Type: Progress Notes Filed: 10/07/2023 2:11 PM [...] onmental/radiation/files/Rad%20Pro tection %20-%20Diagnostic%20Nuclear%20Medi cine%20Procedures.pdf SIGNATURE: Michael Mosley [employer] PATIENT NAME: Ramona Villegas DATE: October 07, 2023 TIME: 2:09 PM PAGER/CONTACT #: [facility] [place] 10-07-2023 Note Education (GENSF) RAMONA VILLEGAS ([id number]) 1960 F Date Time Provider Department 10/07/23 [...] Encounter Status:Closed by EMY BURKETT on 10/07/23 [facility] [place] 10-07-2023 Note HNO ID: [id number] Author: Emy Burkett, RN Service: ? Author [...] and emotional support needs. Emy Burkett RN [facility] [place] 09-30-2023 Note [facility] RAM[facility] VILLE[facility] ([id number]) 1960 F Date Time Provider Department 09/30/23 SAANM ELLER [facility] Reason for Visit: Patient Education [91] Cmt: [...] Encounter Status:Closed by SANAM ELLER on 09/30/23 [facility] 09-30-2023 Nurse Note AMBULATORY PATIENT EDUCATION [...] By: Sanam Eller LPN In Department: [facility] Time spent on patient education: 20 minutes. documented in this encounter [facility] 09-20-2023 History and physical note HISTORY [...] large neck Non-male patient STOP-Bang Score: 7 [id number] Score: Age: <65 Sex: female CHF history: No Hypertension history: Yes Stroke/TIA/thromboembolism history: No Vascular disease history: No Diabetes history: No [id number] Score: 2 ARISCAT Score: Age: 51-80 Preoperative [...] 1:00, [address] appear normal. ER+ND+HER2- [id number] RIGHT breast cluster of calcifications upper inner [...] analgesics as needed). Negative for: cerebral palsy, CITY DRIVER tumor, multiple sclerosis, Parkinson's disease, peripheral neuropathy, [...] pain, CHF, congenital heart defect, DVT/PE, recent MT, murmur/valvular heart disease, PVD, open heart surgery and valve surgery. GI: No history of GI symptoms or problems. No history of esophageal varices, recent ascites, or ETOH greater than 2 drinks per day. : Positive for: nephrolithiasis (hx stones, s/p lithotripsy). Negative for: urinary incontinence, renal failure and urinary tract infection. MANAGER OF PROGRAM: Negative for abnormal vaginal bleeding, abnormal vaginal [...] Prior to Admission medications as of 09/20/23 4905 Medication Sig Last Dose Taking rosuvastatin (CRESTOR) [...] or any previous visit (from the past 38810 hour(s)). Prepared for Surgery: optimally prepared for [...] #: documented in this encounter [facility] 09-20-2023 Instructions Keyanna Ramirez APRN.CNP - 09/20/2023 2:15 PM EST PATIENT PREOPERATIVE INSTRUCTIONS Harper Lopez DO has scheduled you for your procedure at this surgery center: [facility] [place]: [phone] --[id number] [place] [address]. Please check in on the 1st floor [...] Procedures: - YOU MUST HAVE A RESPONSIBLE OFFICE HELPER CLERICAL TAKE YOU HOME. A LOCOMOTIVE FIRER OR COMMERCIAL LINES ACCOUNT MANAGER CANNOT BE MADE A RESPONSIBLE OFFICE HELPER CLERICAL. - We recommend that a responsible person [...] Advance Directive, please fax a copy to [phone] or email to for it to be [...] APRN.CNP documented in this encounter [facility] 09-20-2023 Note HNO ID: [id number] Author: Andrew Lopez, DO Service: ? Author [...] -Invasive ductal carcinoma with lobular features, provisional [place] grade 1-2 (of 3), measuring almost 12 mm in this sampling. Estrogen Receptor (ER) Positive 91-100 % Stain intensity: moderate to strong Progesterone Receptor (ND) Positive 51-60 % Stain intensity: moderate to [...] daily at bedti (more content not included)... [facility] 09-20-2023 Note HNO ID: [id number] Author: Jacoby Guevara MD, MD Service: ? Author Type: Physician Type: Progress Notes Filed: 09/21/2023 2:35 PM Note Text: Radiation Oncology - New Patient/Consult Note PATIENT NAME: Ramona Villegas PATIENT REQUESTING PROVIDER: Dr. Harper Lopez DIAGNOSIS: Stage IB, cT2 cN0, grade 1-2 invasive ductal carcinoma of the left breast. It's ER positive (91-100%, moderate to strong), ND positive (51-60%, moderate to strong) and Her2 [...] It's ER positive (91-100%, moderate to strong), ND positive (51-60%, moderate to strong) and Her2 [...] Hypertension ZEYNEP (obstructive sleep apnea) [facility]15/2013 [facility] Overweight(278.02) Post-menopausal Prior radiation therapy, collagen vascular disease, or inflammatory bowel disease: No Any implanted or external electric devices? No status: Post-menopausal. PAST SURGICAL HISTORY Procedure Laterality (more content not included)... [facility] 09-20-2023 Nurse Note Radiation Therapy - Nursing Note (Consult) PATIENT NAME: Ramona Villegas PATIENT September 20, 2023 [facility] FACILITY/LOCATION: [place] Chief Complaint: consult Reason for visit: Consult. Referring physician: Internal provider Dr Lopez Subjective Data: no complaints Additional Data Do you want to see a Curriculum Assistant? No Are you interested in information about fertility? No Status: Post-menopausal Stress Scale: On a scale of 0 to 10, what number best describes how much distress you have experienced in the past week?(0 being no distress and 10 being extreme distress) 1 Social work notified: no SIGNED by: Jacquelin Moseley RN documented in this encounter [facility] 09-20-2023 History of Present illness Narrative Radiation Oncology - New Patient/Consult Note PATIENT NAME: Ramona Villegas PATIENT REQUESTING PROVIDER: Dr. Harper Lopez DIAGNOSIS: Stage IB, cT2 cN0, grade 1-2 invasive ductal carcinoma of the left breast. It's ER positive (91-100%, moderate to strong), ND positive (51-60%, moderate to strong) and Her2 [...] It's ER positive (91-100%, moderate to strong), ND positive (51-60%, moderate to strong) and Her2 [...] Hypertension ZEYNEP (obstructive sleep apnea) 11/15/2013 DME [facility] for AutoPAP Overweight(278.02) Post-menopausal Prior radiation therapy, [...] It's ER positive (91-100%, moderate to strong), ND positive (51-60%, moderate to strong) and Her2 [...] by: Jacoby Guevara MD cc: Ted Monroe [address] [place] [address] Harper Lopez [id number] [facility] [id number] documented in this encounter [facility] 09-17-2023 Miscellaneous Notes Spoke to patient, confirmed her surgery date and appointments related to her procedure with Dr. Lopez on 10/07 . documented in this encounter [facility] 09-16-2023 Miscellaneous Notes PT calling to inform she would like to proceed with a Mastectomy with the tentative date given of 10/07. She will cancel her biopsy appt on October 20 . Sanam Eller LPN documented in this encounter [facility] 09-16-2023 Note HNO ID: [id number] Author: Harper Lopez, DO Service: ? Author [...] 1:00, [address] appear normal. ER+ND+HER2- [id number] RIGHT breast cluster of calcifications upper inner aspect, posterior depth, stereo bx recommended - performed on 09/09/23, benign and concordant - 6 month MMG recommended to demonstrate stability Breast MRI was performed yesterday Patient is here to review the findings and to discuss her surgical options. Presents with her son IMAGIN09/09/23 Correlation is made to exams dated: 08/03/2023 ultrasound and 08/03/2023 mammogram - . A stereotactic guided biopsy was performed for [...] location, twelve specimens were obtained using the Gecko Audio system. The patient received additional local anesthetic [...] to exams dated: 09/09/2023 stereotactic biopsy - [facility], 08/11/2023 mammogram, 08/03/2023 ultrasound, 08/03/2023 mammogram, 07/02/2023 mammogram, and 06/12/2022 mammogram - . MRI images were obtained with a dedicated breast coil. TECHNIQUE: Axial STIR and axial T1 weighted imaging was carried out follow by axial T1- with fat saturation imaging both before and after IV administration of 20 ml of Dotarem. Subsequently, complex volumetric analysis requiring post processing performed using a semi-automated software [employer], on an independent workstation by the physician, [...] and slightly medi (more content not included)... [facility] 09-16-2023 History of Present illness Narrative REASON FOR TODAY'S VISIT: Patient presents with: Established Patient: regroup HISTORY of PRESENT ILLNESS: Ramona Villegas is a 63 year old female who I initially saw in the office 08/27/23 with a LEFT breast 2.5 cm x 2.4 cm x 1.5 cm mass @ 1:00, [address] appear normal. ER+ND+HER2- [id number] RIGHT breast cluster of calcifications upper inner aspect, posterior depth, stereo bx recommended - performed on 09/09/23, benign and concordant - 6 month MMG recommended to demonstrate stability Breast MRI was performed yesterday Patient is here to review the findings and to discuss her surgical options. Presents with her son IMAGIN09/09/23 Correlation is made to exams dated: 08/03/2023 ultrasound and 08/03/2023 mammogram - . A stereotactic guided biopsy was performed for [...] location, twelve specimens were obtained using the Gecko Audio system. The patient received additional local anesthetic [...] to exams dated: 09/09/2023 stereotactic biopsy - [facility], 08/11/2023 mammogram, 08/03/2023 ultrasound, 08/03/2023 mammogram, 07/02/2023 mammogram, and 06/12/2022 mammogram - . MRI images were obtained with a dedicated breast coil. TECHNIQUE: Axial STIR and axial T1 weighted imaging was carried out follow by axial T1- with fat saturation imaging both before and after IV administration of 20 ml of Dotarem. Subsequently, complex volumetric analysis requiring post processing performed using a semi-automated software [employer], on an independent workstation by the physician, [...] bx has been recommended. LN appear normal. ER+ND+HER2- [id number] PLAN: We reviewed the imaging and recommendation [...] 09/20/2023 9:30 AM Jacoby Guevara MD, RADTWS [facility] 09/20/2023 11:10 AM Andrew Lopez DO HEMAWS [facility] 10/20/2023 12:30 PM PROCEDURE MAMMO MAIN RADMN Mn A Bldg 12/28/2023 10:45 AM Dianne Toledo [facility] GMTAUS Mn CA Bldg 12/28/2023 2:40 PM Ted Monroe DO [facility] cc: Ted Monroe [address] [place] [address] documented in this encounter [facility] 09-16-2023 Nurse Note Regroup Did patient [...] No documented in this encounter [facility] 09-15-2023 Note HNO ID: [id number] Author: Sandra Bennett RT(R) Service: Radiology Author [...] DATE: September 15, 2023 TIME: 11:09 AM [facility] 09-15-2023 History of Present illness Narrative [...] AM documented in this encounter [facility] 09-13-2023 Miscellaneous Notes Called patient to notify the breast pathology results were benign per Dr. Martinez. Informed patient a 6 month follow up is recommended. Also to continue follow up with Dr. Lopez. Patient agrees with the plan. documented in this encounter [facility] 09-09-2023 Note HNO ID: [id number] Author: Destiney Mckinney, RT(R) Service: ? Author Type: Technologist Type: Patient Education Filed: 09/09/2023 10:31 AM Note Text: Written post procedure instructions were given to the patient. [facility] 09-08-2023 Miscellaneous Notes Spoke with pt [...] cancer and referring physician is Dr. Harper oLpez. Thanks! When patient calls, please schedule with both Dr. Lopez & Dr. Guevara. Harper Emerson 1st attempt: LM & sent MC due to pt's vm requesting a text Dr. Lopez referring this patient for new diagnosis of breast cancer. Next new with either me or Dr. Eduardo. Andrew Lopez DO documented in this encounter [facility] 09-06-2023 Miscellaneous Notes Patient has been [...] 06/2023 documented in this encounter [facility] 09-06-2023 Miscellaneous Notes Images from the [...] Emerson documented in this encounter [facility] 08-27-2023 Note HNO ID: [id number] Author: Sarah Link MD Service: ? Author Type: Physician Type: Progress Notes Filed: 08/27/2023 3:03 PM Note Text: Assessment interrupted by medical provider, unable to complete nursing assessment. Itzel Hanna MA [facility] [place] 08-27-2023 Note HNO ID: [id number] Author: Sarah Link MD Service: ? Author [...] breast biopsy on 08/11 Results [facility] by means of stereotactic core biopsy of Left breast on. The pathology report showed Infiltrating Ductal Carcinoma Grade I- II, ER positive, ND positive, HER2 non-amplified. 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 [facility] [place] 08-27-2023 Note HNO ID: [id number] Author: Harper Lopez, DO Service: ? Author Type: Physician Type: Progress Notes Filed: 09/04/2023 5:25 AM Note Text: NEW BREAST CANCER - INITIAL SURGICAL VISIT SERVICE DATE: 08/27/2023 REFERRING PROVIDER: Dr. King Monroe [address] [facility] [address] Consult requested for an opinion regarding the [...] appeared normal. Core bx performed by Dr. Norton showed showed Infiltrating Ductal Carcinoma with lobular features, Grade I- II, ER positive, ND positive, HER2 non-amplified. 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 [facility] [place] 08-27-2023 History of Present illness Narrative Assessment [...] breast biopsy on 08/11 Results [facility] by means of stereotactic core biopsy of Left breast on. The pathology report showed Infiltrating Ductal Carcinoma Grade I- II, ER positive, ND positive, HER2 non-amplified. 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 King Monroe [address] [facility] [address] Consult requested for an opinion regarding the [...] appeared normal. Core bx performed by Dr. Norton showed showed Infiltrating Ductal Carcinoma with lobular features, Grade I- II, ER positive, ND positive, HER2 non-amplified. 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 The breasts are heterogeneously dense, which may [...] mammogram, 06/12/2022 mammogram, and 05/27/2021 mammogram - . The breasts are heterogeneously dense, which may [...] mammogram, 06/12/2022 mammogram, and 05/27/2021 mammogram - . Color flow and real-time ultrasound of the [...] Invasive ductal carcinoma with lobular features, provisional [place] grade 1-2 (of 3), measuring almost 12 mm in this sampling BREAST BIOMARKER Breast Biomarkers RESULTS: Estrogen Receptor (ER) Positive 91-100 % Progesterone Receptor (ND) Positive 51-60 % HER2 (ERBB2) IMMUNOHISTOCHEMISTRY ASSAY Interpretation: NEGATIVE for HER2 (ERBB2) Expression Score: 1+ GENETIC TESTING: discussed that consult to be placed. SOZO LEFT arm 0.9 ASSESSMENT: Ramona Villegas is a 62 year old female with a LEFT breast 2.5 cm x 2.4 cm x 1.5 cm mass @ 1:00, [address] appear normal. ER+ND+HER2- [id number] RIGHT breast cluster of calcifications upper inner [...] further questions or concerns. Harper Lopez DO, [facility] Breast Surgeon [facility] Cc: DO Dr. Jessica Tavera Dr., Dr. documented in this encounter [facility] 08-25-2023 Miscellaneous Notes Tristian, Called patient to offer an appointment with Dr. Lopez on 08/27/2023, patient accepted, scheduled. documented in this encounter [facility] 08-25-2023 Miscellaneous Notes Tristian, Received a call from the patient, she recently had a biopsy, and is diagnosed with breast cancer. She was requested by Dr. Norton to schedule an appointment with us. Patient is scheduled to have a another biopsy on the other breast on 09/09/2023 (per patient, that was the soonest available. Is it OK to schedule the patient before the second biopsy or wait till we have the results. Thank you documented in this encounter [facility] 08-23-2023 Miscellaneous Notes I see that she is referred to the breast surgeons per preference/ recommendations from Dr. Norton I am familiar with the breast center surgeons and she will have great care Please recommend Ted Monroe DO Images from the original note were not included. Please see pt [employer] message- Ramona Rivera [facility] My Chart [...] of hand holding. Is this something Dr. Norton will do? My experience with general surgeons has been rather negative (see ex ). Is Dr Norton a good option or should I explore others? Any help is appreciated. documented in this encounter [facility] 08-20-2023 Note HNO ID: [id number] Author: Corwin Norton MD Service: ? Author Type: Physician Type: [...] her to the breast surgeons up in [place]. [facility] 08-16-2023 Miscellaneous Notes Turned into KEYONNA Lombardo documented in this encounter [facility] 08-13-2023 Note HNO ID: [id number] Author: Jm Mcguire MD Service: ? Author Type: Physician Type: Progress Notes Filed: 08/13/2023 5:27 PM Note Text: Agree with recommendation for stereotactic biopsy of the heterogeneous calcifications in the right breast upper inner aspect posterior depth. An order has been placed. This is not a billable event. [facility] 08-13-2023 History of Present illness Narrative Agree with recommendation for stereotactic biopsy of the heterogeneous calcifications in the right breast upper inner aspect posterior depth. An order has been placed. This is not a billable event. documented in this encounter [facility] 08-13-2023 Note HNO ID: [id number] Author: Corwin Norton MD Service: ? Author Type: Physician Type: Progress Notes Filed: 08/13/2023 1:40 PM Note Text: Preoperative diagnosis: Abnormal mammogram to left breast Postoperative diagnosis: The same Procedure: Ultrasound-guided needle core biopsy of abnormal mammogram to left breast Surgeon: Joon Procedure: Ultrasound of the left breast in the upper outer quadrant revealed the lesion in question. I prepped the skin with Betadine. I injected 1% lidocaine plain. Under ultrasound guidance I directed local down towards the lesion. Under ultrasound guidance 2 needle core biopsies were obtained. Under ultrasound guidance a small titanium clip was placed. Patient tolerated the procedure sterile dressings were applied. [facility] 08-13-2023 History of Present illness Narrative Preoperative diagnosis: Abnormal mammogram to left breast Postoperative diagnosis: The same Procedure: Ultrasound-guided needle core biopsy of abnormal mammogram to left breast Surgeon: Joon Procedure: Ultrasound of the left breast in [...] RN documented in this encounter [facility] 08-11-2023 Note HNO ID: [id number] Author: Halley Queen, [employer]vo [employer] Service: ? Author Type: Lens Grinder Type: Progress Notes Filed: 08/11/2023 1:41 PM [...] DATA: Not applicable SIGNED BY: Halley Queen Match[employer] August 11, 2023 1:40 PM [facility] 08-11-2023 History of Present illness Narrative [...] DATA: Not applicable SIGNED BY: Halley Queen [facility]i [facility] Graciela August 11, 2023 1:40 PM documented in this encounter [facility] 08-11-2023 Note HNO ID: [id number] Author: Jessi Adams RN Service: ? Author [...] Visit completed when applicable. Jessi Adams RN [facility] 08-11-2023 Instructions Jessi Adams RN - 08/11/2023 12:23 PM EDT The following instructions are important for you related to your office visit today with the [facility] General Surgeons. Instructions After OFFICE BASED BREAST [...] you should contact our office immediately @ [phone] and ask to be transferred to the General Surgery department. documented in this encounter [facility] 08-05-2023 Miscellaneous Notes Patient was scheduled with general surgery for evaluation of abnormal mammogram. Stanley Prescott PA-C documented in this encounter [facility] 08-03-2023 Note HNO ID: [id number] Author: Corwin Norton MD Service: ? Author Type: Physician Type: [...] Hypercholesteraemia Hypertension ZEYNEP (obstructive sleep apnea) 11/15/2013 [facility] for AutoPAP Overweight(278.02) Post-menopausal PAST SURGICAL HISTORY [...] by the nurse (more content not included)... [facility] 08-03-2023 Note HNO ID: [id number] Author: Veronica Ulloa RDMS Service: ? Author Type: Poultry Pathologist Type: Progress Notes Filed: 08/03/2023 1:26 PM [...] RDMS RVT August 03, 2023 1:25 PM [facility] 08-03-2023 Note HNO ID: [id number] Author: Darshana White [employer] Graciela Service: ? Author Type: Lens Grinder Type: Progress Notes Filed: 08/03/2023 9:45 AM [...] Eddie Powers August 03, 2023 8:54 AM [facility] 08-03-2023 History of Present illness Narrative [...] PM documented in this encounter [facility] 08-03-2023 History of Present illness Narrative [...] PERIPHERAL IV DATA: Not applicable SIGNED BY: Josfeina Powerso Graciela August 03, 2023 8:54 AM documented in this encounter [facility] 07-22-2023 Miscellaneous Notes The following approved medication requests have been transmitted electronically. Requested Prescriptions Signed Prescriptions Disp Refills hydroCHLOROthiazide 25 mg tablet 90 tablet 1 Sig: take 1 tablet daily Authorizing Provider: SHAR BOLANOS MD Patient last visit 12/03/2022 Follow up appointment scheduled 12/28/2023 Xena Dawson Ma documented in this encounter [facility] 07-02-2023 Note HNO ID: [id number] Author: Darshana White Mammo Tech Service: ? Author Type: Lens Grinder Type: Progress Notes Filed: 07/02/2023 8:27 AM [...] Eddie Powers July 02, 2023 8:09 AM [facility] 07-02-2023 Miscellaneous Notes Patient active MyChart. Patient notified via NetSparkhart message to the previous iwit message. Kimberly Rosas MA Called and left a detailed voicemail notifying patient of providers message. Hospital phone number was left for patient to call and either set up exam with Dr Monroe or get a referral to MANAGER OF PROGRAM. Padmini Guidry, RN I am okay with helping manage her Pap/pelvic exams or she can be seen by MANAGER OF PROGRAM, whichever she is more comfortable. Not sure when she is due for her next pap etc Ted Monroe DO Due to [facility] MANAGER OF PROGRAM closing., patient is transferring [facility]NA[facility] OF PROGRAM records to [facility]. Is patient to establish with a [facility] MANAGER OF PROGRAM or okay to follow PCP? Please advise & place referral if needed to establish with specialty. Kimberly Rosas MA documented in this encounter [facility] 07-02-2023 History of Present illness Narrative [...] AM documented in this encounter [facility] 06-23-2023 Miscellaneous Notes Patient phones requesting refills as follows: Requested Prescriptions Pending Prescriptions Disp Refills rosuvastatin (CRESTOR) 10 mg tablet 90 tablet 0 Sig: Take 1 tablet by mouth daily at bedtime. BAHMAN-2/23/23 Labs-11/14/22 NOV-12/28/23 Please review and advise. Sherron Villegas LPN documented in this encounter [facility] 05-25-2023 Miscellaneous Notes Mammogram ordered. Danilo order pended Mignon Lombardo documented in this encounter [facility] 03-11-2023 Miscellaneous Notes Bahman--12/03/22 Nov--nothing scheduled Last refill--12/03/22 90 with 0 refills Last refill--11/14/22 documented in this encounter [facility] 01-27-2023 Miscellaneous Notes [facility]ent to [facility]. Amparo Robledo APRN.WAREHOUSE SHIPPING CLERK Patient phones requesting refills as follows: Requested Prescriptions Pending Prescriptions Disp Refills Syringe with Needle, Safety 3 mL 23 gauge x 1 12 Each 0 Si Each once every month. With B-12 injections Luerlock BAHMAN-12/03/22 Labs-11/17/22 NOV-none Please review and advise. Sherron Villegas LPN documented in this encounter [facility] 01-25-2023 Miscellaneous Notes Patient phones requesting [...] mg 30 qty 30-day supply Rx Number [id number]# [id number] Prescription details Prescriber: Amparo Greene New Fill Canceled Alert Icon Your prescriber is requesting that you call their office before we fill your HYDROCHLOROTHIAZIDE TABS 25MG prescription. Please contact your prescriber to discuss and ask them to e - prescrib documented in this encounter [facility] 01-01-2023 Miscellaneous Notes Faxed order, office notes, demographics, and sleep study to: DME name: [facility] fax: [phone] DME ph: documented in this encounter [facility] 12-31-2022 Miscellaneous Notes Orders faxed to [facility] in [place] via [employer] Cassidy Gordon LPN Order completed per request. Order pended for Auto Pap. Please review and advise. Thank you. NORBERT Baldwin TC to patient with results, verbalized understanding, states she has been using [facility] in [place] and would like orders sent there. fax #[phone] Cassidy Gordon LPN ----- Message from Jefry [...] MD documented in this encounter [facility] 12-30-2022 Miscellaneous Notes TC to pt [...] MD documented in this encounter [facility] 12-21-2022 Note HNO ID: [id number] Author: Naima Henriquez Service: ? Author Type: ? Type: Progress Notes Filed: 12/21/2022 6:37 AM Note Text: Sleep Study Check-In Documentation Date: December 21, 2022 Name: Ramona Villegas Patient was accompanied by Self. Location: [place] Latex allergy: No Tape allergy: No Current medications were reviewed with the patient:Yes Sleep aid taken by patient for the sleep study: [place] of sleep aid: Not Applicable Procedure was explained to the patient and all questions were answered. PAP treatment discussed and shown to patient: Yes If PAP used enter mask info: Mask Name Mirage Quattro Air Make Resmed MaskTypeFull Face Mask SizeSmall Chin Sharp Used No ------- Knowledge Program (KP): KP was not completed in [employer] by patient and accepted Study type: PAP titration Adverse Event: No (If yes create a new abstract) Comments: Patient was advised to follow up with their ordering provider regarding test results Naima Fong-Ankit [facility] 12-21-2022 History of Present illness Narrative Sleep Study Check-In Documentation Date: December 21, 2022 Name: Ramona Villegas Patient was accompanied by Self. Location: [place] Latex allergy: No Tape allergy: No Current medications were reviewed with the patient:Yes Sleep aid taken by patient for the sleep study: [place] of sleep aid: Not Applicable Procedure was explained to the patient and all questions were answered. PAP treatment discussed and shown to patient: Yes If PAP used enter mask info: Mask Name Mirage Quattro Air Make Resmed MaskTypeFull Face Mask SizeSmall Chin Sharp Used No Knowledge Program (KP): KP was not completed in [facility] by patient and accepted Study type: PAP titration Adverse Event: No (If yes create a new abstract) Comments: Patient was advised to follow up with their ordering provider regarding test results Naima Perezummie Poly-T documented in this encounter [facility] 12-10-2022 Miscellaneous Notes The following approved medication requests have been transmitted electronically. Requested Prescriptions Signed Prescriptions Disp Refills Syringe with Needle, Safety 3 mL 23 gauge x 1 12 Each 0 Si Each once every month. With B-12 injections Luerlock Authorizing Provider: AMPARO ROBLEDO APRN.CNP Hermes from [facility] calls and states that with syringe with Needle safety 3 mL 23 gauge x 1 prescription order provider must clarify which needle (Integra, eclipse or luerlock). Can just resend prescription with new clarification. Harper Archibald RN documented in this encounter [facility] 12-03-2022 Note HNO ID: [id number] Author: Amparo Robledo APRN.ELIANA Service: ? Author [...] Hypercholesteraemia Hypertension ZEYNEP (obstructive sleep apnea) 11/15/2013 [facility] for AutoP[facility] Overweight(278.02) Post-menopausal Previous Surgical History [...] AutoPAP 10-20 cmH2O (more content not included)... [facility] 11-13-2022 Miscellaneous Notes Patient active MyChart. Patient notified via Happy Metrixt message. Kimberly Rosas MA Will proceed with in lab titration. Jefry Bertrand MD documented in this encounter [facility] 11-09-2022 Miscellaneous Notes FLUoxetine (PROZAC) 20 mg capsule [Amparo Robledo] Patient Comment: Prescription runs out the same time as sceduled appointment, but I worry about a break while waiting for the mail. Can I have a stop-gap supply prescribed? documented in this encounter [facility] 11-02-2022 History of Present illness Narrative Sleep Study Check-In Documentation Date: November 02, 2022 Name: Ramona Villegas Comments: HST was returned in working order with all sleep questionnaires Diana Liz PSS Nomad# [id number] Mail out date:10/26/22 [employer]Ex Shipping #:[id number] [employer] Return #:[id number] October 26, 2022 An order has been received for Home Sleep Apnea Test (HSAT) from [facility] Staff/[employer] Staff Orders. Visit prep complete - Please refer to the sleep study order (under procedures tab) for protocol details and special instructions. The sleep study is scheduled for 10/27/22. Insurance: Payor: [place] [employer] CHOICE [place] / Plan: [place] CONNECT GENERIC / Product Type: PPO / Payer/Plan Subscr Sex Relation Sub. Ins. ID Effective Group Num 1. [place] [employer] RAMONA WINN 1960 Female Self [id number] 10/11/21 [address], [facility] [address] Maddi Fleming documented in this encounter [facility] 10-19-2022 Miscellaneous Notes Please clarify as to why this order was not completed through the [facility] sleep dept. Jefry Bertrand MD Clarified with [facility], needs new HSAT order. Pended new order. Please file. Kimberly Rosas MA documented in this encounter [facility] 10-15-2022 Miscellaneous Notes Pt notified of [...] LPN documented in this encounter [facility] 10-15-2022 Miscellaneous Notes Another phone note [...] LPN documented in this encounter [facility] 06-12-2022 Miscellaneous Notes June 12, 2022 PID: [id number] Ramona Villegas [address] [place] [address] Dear Ms. Villegas, We are pleased to [...] be kept on file at [facility] as part of your permanent medical record and are available for your continuing care. Thank you for allowing us to help in meeting your health care needs. Sincerely, Dr. Aguilar Interpreting Radiologist (Normal over 40) documented in this encounter [facility] 05-25-2022 Miscellaneous Notes The following approved [...] once daily. Authorizing Provider: AMPARO DE LEON APRN.WAREHOUSE SHIPPING CLERK Last Office Visit: 06/04/2021 Future Office Visit: Non3 Last Medication Refill: Cholecalciferol 06/04/2021 90 cap 3 refill Metoprolol 06/04/2021 90 cap 3 refill Date of Last Labs: 05/31/2021 documented in this encounter [facility] 05-04-2022 Miscellaneous Notes Patient phones requesting refills as follows: Pending Prescriptions Disp Refills CYANOCOBALAMIN (VIT B-12) 1,000 MCG/ML INJECTION SOLUTION 3 mL 3 Sig: Inject 1 mL intramuscularly once every month. BOGDAN: No BAHMAN-06/04/21 NOV-05/22/21 NOV-none med filled 07/08/21 Please review and advise. Sherron Villegas LPN documented in this encounter [facility] 03-30-2022 Miscellaneous Notes Please call patient - colonoscopy was normal - I recommend repeat colonoscopy in 10 years - her last two were normal. Please change colonoscopy screening from 5 to 10 years Beth Maguire APRN.WAREHOUSE SHIPPING CLERK documented in this encounter [facility] 03-25-2022 Instructions Madonna Romero MD - [...] practitioner. documented in this encounter [facility] 03-24-2022 Note HNO ID: [id number] Author: Jefry Bertrand Jr., MD Service: ? Author Type: Physician Type: Progress Notes Filed: 04/06/2022 11:45 AM Note Text: [facility] New Patient Evaluation PATIENT NAME: Ramona Villegas DATE OF SERVICE: March 24, 2022 CONSULTING PROVIDER: Ted Monroe [address] [facility] [address] REASON FOR CONSULT: Ted Monroe sends the [...] refer to records. The patient moved from [place] to [place]. The patient current machine was both in 2013, and her machine from her insurance was broken in 2013 and she bought a new machine [id number]. chine CPAP information: Machine name : Pankaj DME company: [employer] Mask: Fullface mask The patient compliance report [...] - ZEYNEP (obstructive sleep apnea) 11/15/2013 D[facility] [employer] for AutoPAP - Overweight(278.02) - Post-menopausal PAST [...] Injury of Right (more content not included)... [facility] 03-24-2022 History of Present illness Narrative Images from the original note were not included. [facility] New Patient Evaluation PATIENT NAME: Ramona Villegas DATE OF SERVICE: March 24, 2022 CONSULTING PROVIDER: Ted Monroe [address] [facility] [address] REASON FOR CONSULT: Ted Monroe sends the [...] refer to records. The patient moved from [place] to [place]. The patient current machine was both in 2013, and her machine from her insurance was broken in 2013 and she bought a new machine [id number]. chine CPAP information: Machine name : Sarika DME company: [employer] Mask: Fullface mask The patient compliance [...] rashes, lesions or skin changes IMPRESSION/PLAN: Ramona iVllegas is a 61 year old female with [...] Dr. Bertrand. Madonna Romero MD Sleep Fellow [facility] STAFF PHYSICIAN NOTE OF PERSONAL INVOLVEMENT IN [...] patient has been identified by name and (MRN and photo identification as well if available). Those taking part in visit: Patient and Physician and Fellow via iwit. Consent for this visit received from patient. [...] which included preparing to see the patient, [id number] patient care, completing clinical documentation, obtaining and/or reviewing separately obtained history, performing a medically appropriate examination, counseling and educating the patient/family/caregiver, ordering medications, tests, or procedures, communicating with other HCPs (not separately reported) and communicating results to the patient/family/caregiver. documented in this encounter [facility] 03-23-2022 Miscellaneous Notes We have yet [...] try again later. Spoke to Mary with [facility] regarding pt's 30 day CPAP compliance report, awaiting fax. Fortino Parekh CMA documented in this encounter [facility] 03-23-2022 Nurse Note Patient passing flatus at intervals. Patient denies pain or discomfort. Sitting in bed partaking of post-procedure snack. Roselyn Mirnada RN Arrived in phase II via cart. Left lateral position. Sedated, but responds to verbal stimuli. Color normal; skin warm and dry. Respirations wnl and unlabored. Abdomen soft and with + bowel sounds in quads X 4. Patient resting comfortably. Dr. Norton at bedside to review procedure and recommendations. Roselyn Miranda RN documented in this encounter [facility] 03-23-2022 History and physical note NEW [...] mcg INTRAMUSCULAR q 4 WEEKS Ted Monroe, 1,000 mcg at 07/08/21 1108 ALLERGIES ALLERGIES [...] with more than 50% of the total rfcz-vw-fbdo time of the visit in counseling / coordination of care. I have confirmed and edited as necessary, the PFSH and ROS obtained by others. Beth Maguire APRN.WAREHOUSE SHIPPING CLERK UPDATED HISTORY AND PHYSICAL EXAMINATION SERVICE DATE: [...] be found in the attached. SIGNATURE: Corwin Norton III, MD PATIENT NAME: Ramona Villegas DATE: March 23, 2022 TIME: 10:41 AM documented in this encounter [facility] 03-23-2022 Miscellaneous Notes NEW VIRTUAL VISIT [...] Hypercholesteraemia Hypertension ZEYNEP (obstructive sleep apnea) 11/15/2013 [facility] for AutoPAP Overweight(278.02) Post-menopausal PAST SURGICAL HISTORY PAST SURGICAL HISTORY Procedure Laterality Date COLONOSCOP W/ OR W/O [facility] SPEC 09/04/2013 Colonoscopy- 3 small polyps COLONOSCOPY [...] with more than 50% of the total kvlo-bj-laue time of the visit in counseling / coordination of care. I have confirmed and edited as necessary, the PFSH and ROS obtained by others. Beth Maguire APRN.WAREHOUSE SHIPPING CLERK UPDATED HISTORY AND PHYSICAL EXAMINATION SERVICE DATE: [...] be found in the attached. SIGNATURE: Corwin Norton III, MD PATIENT NAME: Ramona Villegas DATE: March 23, 2022 TIME: 10:40 AM documented in this encounter [facility] 02-13-2022 Miscellaneous Notes Patient is scheduled at [facility] on 03/23/[address] Norton for a colonoscopy. DX: Screening for colon cancer [Z12.11 (ICD-10-CM)] Verbal and written instructions given. documented in this encounter [facility] 02-11-2022 History of Present illness Narrative [...] Hypertension ZEYNEP (obstructive sleep apnea) 11/15/2013 [facility] for [facility] Overweight(278.02) Post-menopausal PAST SURGICAL HISTORY [...] with more than 50% of the total frco-kv-wppw time of the visit in counseling / coordination of care. I have confirmed and edited as necessary, the PFSH and ROS obtained by others. Beth Maguire APRN.CNP February 11, 2022 11:21 AM documented in this encounter [facility] 02-11-2022 Instructions Beth Maguire APRN.CNP - [...] If you do not have a responsible compressed air pile driver operator (family member or friend) with you to [...] 09/2019 documented in this encounter [facility] Diagnosis Screening for colon cancer Special screening for malignant neoplasms, colon [facility] Diagnosis ZEYNEP (obstructive sleep apnea)- Primary Obstructive sleep apnea (adult) (pediatric) Sleep deprivation Problems related to lack of adequate sleep Behaviorally induced insufficient sleep syndrome Persistent disorder of initiating or maintaining wakefulness [facility] Diagnosis Vitamin B 12 deficiency Other B-complex deficiencies [facility] Diagnosis Essential hypertension Unspecified essential hypertension Vitamin D deficiency Unspecified vitamin D deficiency [facility] Diagnosis Vitamin B 12 deficiency Other B-complex deficiencies [facility] Diagnosis Vitamin D deficiency- Primary Unspecified vitamin D deficiency Essential hypertension Unspecified essential hypertension Wellness examination [facility] Diagnosis ZEYNEP (obstructive sleep apnea)- Primary Obstructive sleep apnea (adult) (pediatric) [facility]* Diagnosis Anxiety Anxiety state, unspecified [facility] Diagnosis Obstructive sleep apnea (adult) (pediatric)- Primary [facility] Diagnosis Vitamin B 12 deficiency Other B-complex deficiencies [facility] Diagnosis ZEYNEP (obstructive sleep apnea)- Primary Obstructive sleep apnea (adult) (pediatric) [facility] Diagnosis Vitamin B 12 deficiency Other B-complex deficiencies [facility]* Diagnosis Essential hypertension Unspecified essential hypertension [facility]* Diagnosis Hyperlipidemia, mixed Mixed hyperlipidemia [facility] Diagnosis Encounter for screening mammogram for malignant neoplasm of breast- Primary Other screening mammogram [facility]* Diagnosis Hyperlipidemia, mixed Mixed hyperlipidemia documented in this encounter [facility] note* Diagnosis Essential hypertension Unspecified essential hypertension documented in this encounter [facility] note* Diagnosis Abnormal mammogram- Primary Abnormal mammogram, unspecified Mammographic microcalcification found on diagnostic imaging of breast Mammographic microcalcification documented in this encounter [facility] note* Diagnosis Abnormal finding on radiological examination of breast- Primary Other (abnormal) findings on radiological examination of breast documented in this encounter [facility] note* Diagnosis Abnormal mammogram Abnormal mammogram, unspecified [facility] Center note* Diagnosis Abnormality of both breasts on screening mammogram documented in this encounter [facility] note* Diagnosis Abnormality of both breasts on screening mammogram [facility] Diagnosis Encounter for screening mammogram for malignant neoplasm of breast Other screening mammogram [facility]* Diagnosis Malignant neoplasm of upper-outer quadrant of left breast in female, estrogen receptor positive (HCC)- Primary documented [facility]* Diagnosis Invasive ductal carcinoma of breast, female, left (HCC)- Primary [facility]* Diagnosis Malignant neoplasm of upper-outer quadrant of left breast in female, estrogen receptor positive (HCC)- Primary Abnormal mammogram with microcalcification Mammographic microcalcification At risk for lymphedema Other specified conditions influencing health status documented in this encounter [facility] note* Diagnosis Hyperlipidemia, mixed Mixed hyperlipidemia [facility] Diagnosis Invasive ductal carcinoma of breast, female, left (HCC) documented [facility]* Diagnosis Breast disorder- Primary Unspecified breast disorder [facility] Diagnosis Breast disorder- Primary Unspecified breast disorder documented [facility]* Diagnosis Malignant neoplasm of upper-outer quadrant of left breast in female, estrogen receptor positive (HCC)- Primary [facility]* Diagnosis Malignant neoplasm of upper-outer quadrant of left breast in female, estrogen receptor positive (HCC)- Primary Malignant neoplasm of upper-outer quadrant of left breast in female, estrogen receptor positive (HCC) documented [facility]* Diagnosis Pre-operative examination- Primary Preoperative examination, [...] (HCC) documented [facility]* Diagnosis Malignant neoplasm of upper-outer quadrant of left breast in female, estrogen receptor positive (HCC) Abnormal mammogram with microcalcification Mammographic microcalcification Malignant neoplasm of upper-outer quadrant of left breast in female, estrogen receptor positive (HCC) documented in this encounter [facility] note* Diagnosis Malignant neoplasm of upper-outer quadrant of left breast in female, estrogen receptor positive (HCC) (HCC)- Primary Malignant neoplasm of upper-outer quadrant of left breast in female, estrogen receptor positive (HCC) (HCC) documented in this encounter [facility] for referral (narrative)* Outpatient Procedure (Routine) - Pending Review Specialty Diagnoses / Procedures Referred By Laila bermudez Referred To Contact [facility] Diagnoses Screening for colon cancer Procedures COLONOSCOPY SCREENING COLONOSCOPY FLX DX W/COLLJ SPEC WHEN Beth Gonzalez APRN.CNP [address] [place] [address] [facility] [address] [place] [address] Referral ID Status Reason Start Date Expiration Date Visits Requested Visits Authorized [id number] Pending Review Auto-Generat ed Referral 02/11/2022 02/11/2023 1 1 [facility] for referral (narrative)* Outpatient Procedure (Routine) - Closed Specialty Diagnoses / Procedures Referred By Contac t Referred To Contact [facility] Diagnoses Screening for colon cancer Procedures COLONOSCOPY SCREENING COLONOSCOPY SCREENING COLONOSCOPY FLX DX W/COLLJ SPEC WHEN Beth Gonzalez APRN.WAREHOUSE SHIPPING CLERK [address] [place] [address] [facility] [address] [place] [address] Referral ID Status Reason Start Date Expiration Date V isits Requested Visits Authorized [id number] Closed Auto-Generate d Referral OON/Self Pay Override 02/11/2022 02/11/2023 1 1 [facility] for referral (narrative)* Diagnostic Procedure Only (Routine) - Authorized Specialty Diagnoses / Procedures Referred By Contac t Referred To Contact [facility] Diagnoses ZEYNEP (obstructive sleep apnea) Procedures HOME SLEEP APNEA TEST (HSAT) SLEEP STD AIRFLOW HRT RATE&O2 SAT EFFORT Jefry Figueroa Jr., MD [address] [place] [phone] [facility] [address] [address] Referral ID Status Reason Start Date Expiration Date Visits Requested Visits Authorized [id number] Authorized Auto-Generat ed Referral 10/11/2021 10/10/2022 1 1 T [facility] for referral (narrative)* Diagnostic Procedure Only (Routine) - Pending Review Specialty Diagnoses / Procedures Referred By Contac t Referred To Contact [facility] Diagnoses ZEYNEP (obstructive sleep apnea) Procedures HOME SLEEP APNEA TEST (HSAT) SLEEP STD AIRFLOW HRT RATE&O2 SAT EFFORT Jefry Figueroa Jr., MD [address] [place] [address] [facility] [address] [place] [address] Referral ID Status Reason Start Date Expiration Date Visits Requested Visits Authorized [id number] Pending Review Auto-Generat ed Referral 10/19/2022 10/19/2023 1 1 [facility] for referral (narrative)* Diagnostic Procedure Only (Routine) - Pending Review Specialty Diagnoses / Procedures Referred By Laila bermudez Referred To Contact [facility] Diagnoses Encounter for screening mammogram for malignant neoplasm of breast Procedures DANILO SCREENING SCREENING MAMMOGRAPHY BI 2-VIEW BREAST INC Stanley Mauricio PA-C [address] [place] [address] [facility] [address] [place] [address] Referral ID Status Reason Start Date Expiration Date Visits Requested Visits Authorized [id number] Pending Review Auto-Generat ed Referral 05/25/2023 06/22/2024 1 1 [facility] for referral (narrative)* Diagnostic Procedure Only (Routine) - Pending Review Specialty Diagnoses / Procedures Referred By Laila bermudez Referred To Contact [facility] Diagnoses Mammographic microcalcification found on diagnostic imaging of breast Procedures DANILO STEREO BX BREAST RIGHT BX BREAST W/DEVICE 1ST LESION STEREOTACTIC GUID Corwin Norton MD [address] [place] [address] [facility] [address] [place] [address] Referral ID Status Reason Start Date Expiration Date Visits Requested Visits Authorized [id number] Pending Review Auto-Generat ed Referral 08/11/2023 09/09/2024 1 1 * Diagnostic Procedure Only (Routine) - Closed Specialty Diagnoses / Procedures Referred By Laila bermudez Referred To Contact [facility] Diagnoses Abnormal mammogram Procedures DANILO DIAGNOSTIC LEFT DIAGNOSTIC MAMMOGRAPHY COMPUTER-AIDED DETCJ UNI Corwin Norton MD [address] [place] [address] [facility] [address] [place] [address] Referral ID Status Reason Start Date Expiration Date V isits Requested Visits Authorized [id number] Closed Auto-Generate d Referral 08/11/2023 10/10/2023 1 1 [facility] for referral (narrative)* Diagnostic Procedure Only (Routine) - Pending Review Specialty Diagnoses / Procedures Referred By Contac t Referred To Contact [facility] Diagnoses Abnormal finding on radiological examination of breast Procedures DANILO STEREO BX BREAST RIGHT BX BREAST W/DEVICE 1ST LESION STEREOTACTIC Jm Duff MD [address] [place] [address] [facility] [address] [place] [phone] Referral ID Status Reason Start Date Expiration Date Visits Requested Visits Authorized [id number] Pending Review Auto-Generat ed Referral 08/13/2023 09/11/2024 1 1 [facility] for referral (narrative)* Diagnostic Procedure Only (Routine) - Closed Specialty Diagnoses / Procedures Referred By Contac t Referred To Contact [facility] Diagnoses Abnormal mammogram Procedures DANILO DIAGNOSTIC LEFT DIAGNOSTIC MAMMOGRAPHY COMPUTER-AIDED DETCJ UNI Corwin Norton MD [address] [place] [address] [facility] [address] [place] [phone] Referral ID Status Reason Start Date Expiration Date V isits Requested Visits Authorized [id number] Closed Auto-Generate d Referral 08/11/2023 10/10/2023 1 1 [facility] for referral (narrative)* Diagnostic Procedure Only (Routine) - Closed Specialty Diagnoses / Procedures Referred By Laila t Referred To Contact [facility] Diagnoses Abnormality of both breasts on screening mammogram Procedures US BREAST LTD LEFT US BREAST UNI REAL TIME WITH IMAGE LIMITED Ted Monroe, [address] [place] [address] [facility] [address] [place] [address] Referral ID Status Reason Start Date Expiration Date V isits Requested Visits Authorized [id number] Closed Auto-Generate d Referral 08/03/2023 10/10/2023 1 1 [facility] for referral (narrative)* Diagnostic Procedure Only (Routine) - Closed Specialty Diagnoses / Procedures Referred By Alethaac t Referred To Contact [facility] Diagnoses Encounter for screening mammogram for malignant neoplasm of breast Procedures DANILO SCREENING SCREENING MAMMOGRAPHY BI 2-VIEW BREAST INC CAD Stanley Prescott PA-C [address] [place] [address] [facility] [address] [place] [address] Referral ID Status Reason Start Date Expiration Date V isits Requested Visits Authorized [id number] Closed Auto-Generate d Referral 07/02/2023 10/10/2023 1 1 [facility] for referral (narrative)* Diagnostic Procedure Only (Routine) - Closed Specialty Diagnoses / Procedures Referred By Laila t Referred To Contact [facility] Diagnoses Breast disorder Procedures US BREAST LTD LEFT US BREAST UNI REAL TIME WITH IMAGE LIMITED Dianne Alvarenga MD [address] [place] [address] [facility] [address] [place] [address] Referral ID Status Reason Start Date Expiration Date Visits Re quested Visits Authorized [id number] Closed 09/16/2023 10/10/2023 1 1 [facility] for visit Narrative* Outpatient Procedure (Routine) - Closed Specialty Diagnoses / Procedures Referred By Laila bermudez Referred To Contact [facility] Diagnoses Screening for colon cancer Procedures COLONOSCOPY SCREENING COLONOSCOPY SCREENING COLONOSCOPY FLX DX W/COLLJ SPEC WHEN PFRMD Beth Maguire, SHEELA.WAREHOUSE SHIPPING CLERK [address] [place] [address] [facility] [address] [place] [address] Referral ID Status Reason Start Date Expiration Date V isits Requested Visits Authorized [id number] Closed Auto-Generate d Referral OON/Self Pay Override 02/11/2022 02/11/2023 1 1 [facility] for visit Narrative* Diagnostic Procedure Only (Routine) - Closed Specialty Diagnoses / Procedures Referred By Laila bermudez Referred To Contact Radiology / [facility] Diagnoses mammo scrreen order pend Procedures MAMMOGRAM SCREENING Ted Monroe [address] [place] [address] Radio M[facility] [address] [place] [address] Referral ID Status Reason Start Date Expiration Date Visits Re quested Visits Authorized [id number] Closed 06/12/2022 08/11/2022 1 1 [facility] for visit Narrative* Diagnostic Procedure Only (Routine) - Closed Specialty Diagnoses / Procedures Referred By Laila t Referred To Contact [facility] Diagnoses Abnormal mammogram Procedures DANILO DIAGNOSTIC LEFT DIAGNOSTIC MAMMOGRAPHY COMPUTER-AIDED DETCJ Corwin Nugent MD [address] [place] [address] [facility] [address] [place] [address] Referral ID Status Reason Start Date Expiration Date V isits Requested Visits Authorized [id number] Closed Auto-Generate d Referral 08/11/2023 10/10/2023 1 1 [facility] for visit Narrative* Diagnostic Procedure Only (Routine) - Closed Specialty Diagnoses / Procedures Referred By Laila t Referred To Contact [facility] Diagnoses Abnormality of both breasts on screening mammogram Procedures DANILO DIAGNOSTIC BILATERAL DIAGNOSTIC MAMMOGRAPHY COMPUTER-AIDED DETCJ BI Ted Monroe L, DO [address] [place] [address] [facility] [address] [place] [address] Referral ID Status Reason Start Date Expiration Date V isits Requested Visits Authorized [id number] Closed Auto-Generate d Referral 08/03/2023 10/10/2023 1 1 [facility] Diagnostic Procedure Only (Routine) - Closed Specialty Diagnoses / Procedures Referred By Contsveta t Referred To Contact [facility] Diagnoses Encounter for screening mammogram for malignant neoplasm of breast Procedures DANILO SCREENING SCREENING MAMMOGRAPHY BI 2-VIEW BREAST INC CAD Stanley Prescott PA-C [address] [place] [address] [facility] [address] [place] [address] Referral ID Status Reason Start Date Expiration Date V isits Requested Visits Authorized [id number] Closed Auto-Generate d Referral 07/02/2023 10/10/2023 1 1 [facility] Advance Directives Documents on File Type Date Recorded Patient Shotblaster Expl anation Advance Directive(s) 07/02/2020 12:48 PM Advance Directive(s) 06/28/2020 12:21 PM Advance Directive(s) 11/09/2016 12:42 PM Documents on File Type Date Recorded Patient Shotblaster Expl anation Advance Directive(s) 03/23/2022 9:24 AM Advance Directive(s) 07/02/2020 12:48 PM Advance Directive(s) 06/28/2020 12:21 PM Advance Directive(s) 11/09/2016 12:42 PM Documents on File Type Date Recorded Patient Shotblaster Expl anation Advance Directive(s) 03/23/2022 9:24 AM Advance Directive(s) 07/02/2020 12:48 PM Advance Directive(s) 06/28/2020 12:21 PM Advance Directive(s) 11/09/2016 12:42 PM Medications Administered Section Inactive Administered Medications - up to 3 most recent administrations Medication Order MAR Action Action Date Dose Rate Site diphenhydrAMINE 12.5-50 mg injection (BENADRYL) 12.5-50 mg, INTRAVENOUS, DIRECTED, Starting on Wed03/23/22 at 1100, [...] Referral Specialty Diagnoses / Procedures Referred By Contac t Referred To Contact [facility] Diagnoses Invasive ductal carcinoma of breast, female, left (HCC) Procedures MRI 3D POST PROCESSING 3D RENDERING W/INTERP&POSTPROC DIFF WORK STATION Maria Victoria Camilo PA-C [address] [place] [id number] [id number] Referral ID Status Reason Start Date Expiration Date Visits Requested Visits Authorized [id number] Pending Review Auto-Generat ed Referral 3 09/25/2024 1 1 Specialty Diagnoses / Procedures Referred By Contac t Referred To Contact [facility] Diagnoses Invasive ductal carcinoma of breast, female, left (HCC) Procedures MRI BREAST WO/W IVCON BILATERAL MRI BREAST WITHOUT&WITH CONTRAST W/CAD BILATERAL Maria Victoria Camilo PA-C [address] [id number] Mr [id number] Referral ID Status Reason Start Date Expiration Date Visits Requested Visits Authorized [id number] Pending Review Auto-Generat ed Referral 3 09/25/2024 1 1 Specialty Diagnoses / Procedures Referred By Contac t Referred To Contact Diagnoses Malignant neoplasm of upper-outer quadrant of left breast in female, estrogen receptor positive (HCC) Procedures CONSULT TO MEDICAL GENETICS - CANCER MEDICAL GENETICS COUNSELING EACH [address] [place] [address] [address] [address] [id number] [place] [address] [place] [address] Referral ID Status Reason Start Date Expiration Date Visits Requested Visits Authorized [id number] Pending Review PCP Requested Referral Auto-Generate d Referral 3 09/03/2024 1 1 Specialty Diagnoses / Procedures Referred By Contac t Referred To Contact Radiation Oncology Diagnoses Malignant neoplasm of upper-outer quadrant of left breast in female, estrogen receptor positive (HCC) Abnormal mammogram with microcalcification Procedures RAD/ONC CONSULT OFFICE/OUTPATIENT [facility] 60-[place] [address] [place] [address] Referral ID Status Reason Start Date Expiration Date Visits Requested Visits Authorized [id number] Pending Review PCP Requested Referral 3 09/03/2024 1 1 Specialty Diagnoses / Procedures Referred By Contac t Referred To Contact Diagnoses Malignant neoplasm of upper-outer quadrant of left breast in female, estrogen receptor positive (HCC) Abnormal mammogram with microcalcification Procedures CONSULT TO HEMATOLOGY/ONCOLOGY OFFICE/OUTPATIENT [facility] 60-[place] [address] [place] [address] Referral ID Status Reason Start Date Expiration Date Visits Requested Visits Authorized [id number] Pending Review PCP Requested Referral 3 12/03/2023 1 1 Specialty Diagnoses / Procedures Referred By Contac t Referred To Contact [facility] Diagnoses Breast disorder Procedures MRI CLIP PLACEMENT BREAST LEFT PERQ BREAST LOC DEVICE PLACEMT 1ST LESIO [place] [address] Referral ID Status Reason Start Date Expiration Date Visits Requested Visits Authorized [id number] Pending Review Auto-Generat ed Referral 09/16/2023 10/15/2024 1 1 Specialty Diagnoses / Procedures Referred By Contac t Referred To Contact [facility] Diagnoses Breast disorder Procedures US BIOPSY BREAST LEFT BX BREAST W/DEVICE 1ST LESION ULTRASOUND Lashell Borjas MD [facility] [address] [place] [address] Referral ID Status Reason Start Date Expiration Date Visits Requested Visits Authorized [id number] Pending Review Auto-Generat ed Referral 09/16/2023 10/15/2024 1 1 Additional Source Comments Source Comments (unrecognize d section and content) In the event this informatio n is protected by the Federal Confidentiality of Alcohol and Drug Abuse Patient Records regulations: The Federal rules restrict any use of the information to criminally investigate or prosecute any alcohol or drug abuse patient.[facility] the event this information is protected by the Federal Confidentiality of Alcohol and Drug Abuse Patient Records regulations: The Federal rules restrict any use of the information to criminally investigate or prosecute any alcohol or drug abuse patient.[facility] the event this information is protected by the Federal Confidentiality of Alcohol and Drug Abuse Patient Records regulations: The Federal rules restrict any use of the information to criminally investigate or prosecute any alcohol or drug abuse patient.[facility] the event this information is protected by the Federal Confidentiality of Alcohol and Drug Abuse Patient Records regulations: The Federal rules restrict any use of the information to criminally investigate or prosecute any alcohol or drug abuse patient.[facility] the event this information is protected by the Federal Confidentiality of Alcohol and Drug Abuse Patient Records regulations: The Federal rules restrict any use of the information to criminally investigate or prosecute any alcohol or drug abuse patient.[facility] the event this information is protected by the Federal Confidentiality of Alcohol and Drug Abuse Patient Records regulations: The Federal rules restrict any use of the information to criminally investigate or prosecute any alcohol or drug abuse patient.[facility] the event this information is protected by the Federal Confidentiality of Alcohol and Drug Abuse Patient Records regulations: The Federal rules restrict any use of the information to criminally investigate or prosecute any alcohol or drug abuse patient.[facility] the event this information is protected by the Federal Confidentiality of Alcohol and Drug Abuse Patient Records regulations: The Federal rules restrict any use of the information to criminally investigate or prosecute any alcohol or drug abuse patient.[facility] the event this information is protected by the Federal Confidentiality of Alcohol and Drug Abuse Patient Records regulations: The Federal rules restrict any use of the information to criminally investigate or prosecute any alcohol or drug abuse patient.[facility] the event this information is protected by the Federal Confidentiality of Alcohol and Drug Abuse Patient Records regulations: The Federal rules restrict any use of the information to criminally investigate or prosecute any alcohol or drug abuse patient.[facility] the event this information is protected by the Federal Confidentiality of Alcohol and Drug Abuse Patient Records regulations: The Federal rules restrict any use of the information to criminally investigate or prosecute any alcohol or drug abuse patient.[facility] the event this information is protected by the Federal Confidentiality of Alcohol and Drug Abuse Patient Records regulations: The Federal rules restrict any use of the information to criminally investigate or prosecute any alcohol or drug abuse patient.[facility] the event this information is protected by the Federal Confidentiality of Alcohol and Drug Abuse Patient Records regulations: The Federal rules restrict any use of the information to criminally investigate or prosecute any alcohol or drug abuse patient.[facility] the event this information is protected by the Federal Confidentiality of Alcohol and Drug Abuse Patient Records regulations: The Federal rules restrict any use of the information to criminally investigate or prosecute any alcohol or drug abuse patient.[facility] the event this information is protected by the Federal Confidentiality of Alcohol and Drug Abuse Patient Records regulations: The Federal rules restrict any use of the information to criminally investigate or prosecute any alcohol or drug abuse patient.[facility] the event this information is protected by the Federal Confidentiality of Alcohol and Drug Abuse Patient Records regulations: The Federal rules restrict any use of the information to criminally investigate or prosecute any alcohol or drug abuse patient.[facility] the event this information is protected by the Federal Confidentiality of Alcohol and Drug Abuse Patient Records regulations: The Federal rules restrict any use of the information to criminally investigate or prosecute any alcohol or drug abuse patient.[facility] the event this information is protected by the Federal Confidentiality of Alcohol and Drug Abuse Patient Records regulations: The Federal rules restrict any use of the information to criminally investigate or prosecute any alcohol or drug abuse patient.[facility] the event this information is protected by the Federal Confidentiality of Alcohol and Drug Abuse Patient Records regulations: The Federal rules restrict any use of the information to criminally investigate or prosecute any alcohol or drug abuse patient.[facility] the event this information is protected by the Federal Confidentiality of Alcohol and Drug Abuse Patient Records regulations: The Federal rules restrict any use of the information to criminally investigate or prosecute any alcohol or drug abuse patient.[facility] the event this information is protected by the Federal Confidentiality of Alcohol and Drug Abuse Patient Records regulations: The Federal rules restrict any use of the information to criminally investigate or prosecute any alcohol or drug abuse patient.[facility] the event this information is protected by the Federal Confidentiality of Alcohol and Drug Abuse Patient Records regulations: The Federal rules restrict any use of the information to criminally investigate or prosecute any alcohol or drug abuse patient.[facility] HospitalIn the event this information is protected by the Federal Confidentiality of Alcohol and Drug Abuse Patient Records regulations: The Federal rules restrict any use of the information to criminally investigate or prosecute any alcohol or drug abuse patient.[facility] HospitalIn the event this information is protected by the Federal Confidentiality of Alcohol and Drug Abuse Patient Records regulations: The Federal rules restrict any use of the information to criminally investigate or prosecute any alcohol or drug abuse patient.[facility] HospitalIn the event this information is protected by the Federal Confidentiality of Alcohol and Drug Abuse Patient Records regulations: The Federal rules restrict any use of the information to criminally investigate or prosecute any alcohol or drug abuse patient.[facility] HospitalIn the event this information is protected by the Federal Confidentiality of Alcohol and Drug Abuse Patient Records regulations: The Federal rules restrict any use of the information to criminally investigate or prosecute any alcohol or drug abuse patient.[facility] HospitalIn the event this information is protected by the Federal Confidentiality of Alcohol and Drug Abuse Patient Records regulations: The Federal rules restrict any use of the information to criminally investigate or prosecute any alcohol or drug abuse patient.[facility] HospitalIn the event this information is protected by the Federal Confidentiality of Alcohol and Drug Abuse Patient Records regulations: The Federal rules restrict any use of the information to criminally investigate or prosecute any alcohol or drug abuse patient.[facility] HospitalIn the event this information is protected by the Federal Confidentiality of Alcohol and Drug Abuse Patient Records regulations: The Federal rules restrict any use of the information to criminally investigate or prosecute any alcohol or drug abuse patient.[facility] HospitalIn the event this information is protected by the Federal Confidentiality of Alcohol and Drug Abuse Patient Records regulations: The Federal rules restrict any use of the information to criminally investigate or prosecute any alcohol or drug abuse patient.[facility] HospitalIn the event this information is protected by the Federal Confidentiality of Alcohol and Drug Abuse Patient Records regulations: The Federal rules restrict any use of the information to criminally investigate or prosecute any alcohol or drug abuse patient.[facility] HospitalIn the event this information is protected by the Federal Confidentiality of Alcohol and Drug Abuse Patient Records regulations: The Federal rules restrict any use of the information to criminally investigate or prosecute any alcohol or drug abuse patient.[facility] HospitalIn the event this information is protected by the Federal Confidentiality of Alcohol and Drug Abuse Patient Records regulations: The Federal rules restrict any use of the information to criminally investigate or prosecute any alcohol or drug abuse patient.[facility] HospitalIn the event this information is protected by the Federal Confidentiality of Alcohol and Drug Abuse Patient Records regulations: The Federal rules restrict any use of the information to criminally investigate or prosecute any alcohol or drug abuse patient.[facility] HospitalIn the event this information is protected by the Federal Confidentiality of Alcohol and Drug Abuse Patient Records regulations: The Federal rules restrict any use of the information to criminally investigate or prosecute any alcohol or drug abuse patient.[facility] HospitalIn the event this information is protected by the Federal Confidentiality of Alcohol and Drug Abuse Patient Records regulations: The Federal rules restrict any use of the information to criminally investigate or prosecute any alcohol or drug abuse patient.[facility] HospitalIn the event this information is protected by the Federal Confidentiality of Alcohol and Drug Abuse Patient Records regulations: The Federal rules restrict any use of the information to criminally investigate or prosecute any alcohol or drug abuse patient.[facility] HospitalIn the event this information is protected by the Federal Confidentiality of Alcohol and Drug Abuse Patient Records regulations: The Federal rules restrict any use of the information to criminally investigate or prosecute any alcohol or drug abuse patient.[facility] HospitalIn the event this information is protected by the Federal Confidentiality of Alcohol and Drug Abuse Patient Records regulations: The Federal rules restrict any use of the information to criminally investigate or prosecute any alcohol or drug abuse patient.[facility] HospitalIn the event this information is protected by the Federal Confidentiality of Alcohol and Drug Abuse Patient Records regulations: The Federal rules restrict any use of the information to criminally investigate or prosecute any alcohol or drug abuse patient.[facility] HospitalIn the event this information is protected by the Federal Confidentiality of Alcohol and Drug Abuse Patient Records regulations: The Federal rules restrict any use of the information to criminally investigate or prosecute any alcohol or drug abuse patient.[facility] HospitalIn the event this information is protected by the Federal Confidentiality of Alcohol and Drug Abuse Patient Records regulations: The Federal rules restrict any use of the information to criminally investigate or prosecute any alcohol or drug abuse patient.[facility] HospitalIn the event this information is protected by the Federal Confidentiality of Alcohol and Drug Abuse Patient Records regulations: The Federal rules restrict any use of the information to criminally investigate or prosecute any alcohol or drug abuse patient.[facility] HospitalIn the event this information is protected by the Federal Confidentiality of Alcohol and Drug Abuse Patient Records regulations: The Federal rules restrict any use of the information to criminally investigate or prosecute any alcohol or drug abuse patient.[facility] HospitalIn the event this information is protected by the Federal Confidentiality of Alcohol and Drug Abuse Patient Records regulations: The Federal rules restrict any use of the information to criminally investigate or prosecute any alcohol or drug abuse patient.[facility] HospitalIn the event this information is protected by the Federal Confidentiality of Alcohol and Drug Abuse Patient Records regulations: The Federal rules restrict any use of the information to criminally investigate or prosecute any alcohol or drug abuse patient.[facility] HospitalIn the event this information is protected by the Federal Confidentiality of Alcohol and Drug Abuse Patient Records regulations: The Federal rules restrict any use of the information to criminally investigate or prosecute any alcohol or drug abuse patient.[facility] HospitalIn the event this information is protected by the Federal Confidentiality of Alcohol and Drug Abuse Patient Records regulations: The Federal rules restrict any use of the information to criminally investigate or prosecute any alcohol or drug abuse patient.[facility] HospitalIn the event this information is protected by the Federal Confidentiality of Alcohol and Drug Abuse Patient Records regulations: The Federal rules restrict any use of the information to criminally investigate or prosecute any alcohol or drug abuse patient.[facility] HospitalIn the event this information is protected by the Federal Confidentiality of Alcohol and Drug Abuse Patient Records regulations: The Federal rules restrict any use of the information to criminally investigate or prosecute any alcohol or drug abuse patient.[facility] HospitalIn the event this information is protected by the Federal Confidentiality of Alcohol and Drug Abuse Patient Records regulations: The Federal rules restrict any use of the information to criminally investigate or prosecute any alcohol or drug abuse patient.[facility] HospitalIn the event this information is protected by the Federal Confidentiality of Alcohol and Drug Abuse Patient Records regulations: The Federal rules restrict any use of the information to criminally investigate or prosecute any alcohol or drug abuse patient.[facility] HospitalIn the event this information is protected by the Federal Confidentiality of Alcohol and Drug Abuse Patient Records regulations: The Federal rules restrict any use of the information to criminally investigate or prosecute any alcohol or drug abuse patient.[facility] HospitalIn the event this information is protected by the Federal Confidentiality of Alcohol and Drug Abuse Patient Records regulations: The Federal rules restrict any use of the information to criminally investigate or prosecute any alcohol or drug abuse patient.[facility] HospitalIn the event this information is protected by the Federal Confidentiality of Alcohol and Drug Abuse Patient Records regulations: The Federal rules restrict any use of the information to criminally investigate or prosecute any alcohol or drug abuse patient.[facility] HospitalIn the event this information is protected by the Federal Confidentiality of Alcohol and Drug Abuse Patient Records regulations: The Federal rules restrict any use of the information to criminally investigate or prosecute any alcohol or drug abuse patient.[facility] HospitalIn the event this information is protected by the Federal Confidentiality of Alcohol and Drug Abuse Patient Records regulations: The Federal rules restrict any use of the information to criminally investigate or prosecute any alcohol or drug abuse patient.[facility] HospitalIn the event this information is protected by the Federal Confidentiality of Alcohol and Drug Abuse Patient Records regulations: The Federal rules restrict any use of the information to criminally investigate or prosecute any alcohol or drug abuse patient.[facility] HospitalIn the event this information is protected by the Federal Confidentiality of Alcohol and Drug Abuse Patient Records regulations: The Federal rules restrict any use of the information to criminally investigate or prosecute any alcohol or drug abuse patient.[facility] HospitalIn the event this information is protected by the Federal Confidentiality of Alcohol and Drug Abuse Patient Records regulations: The Federal rules restrict any use of the information to criminally investigate or prosecute any alcohol or drug abuse patient.[facility] HospitalIn the event this information is protected by the Federal Confidentiality of Alcohol and Drug Abuse Patient Records regulations: The Federal rules restrict any use of the information to criminally investigate or prosecute any alcohol or drug abuse patient.[facility] HospitalIn the event this information is protected by the Federal Confidentiality of Alcohol and Drug Abuse Patient Records regulations: The Federal rules restrict any use of the information to criminally investigate or prosecute any alcohol or drug abuse patient.[facility] HospitalIn the event this information is protected by the Federal Confidentiality of Alcohol and Drug Abuse Patient Records regulations: The Federal rules restrict any use of the information to criminally investigate or prosecute any alcohol or drug abuse patient.[facility] HospitalIn the event this information is protected by the Federal Confidentiality of Alcohol and Drug Abuse Patient Records regulations: The Federal rules restrict any use of the information to criminally investigate or prosecute any alcohol or drug abuse patient.[facility] HospitalIn the event this information is protected by the Federal Confidentiality of Alcohol and Drug Abuse Patient Records regulations: The Federal rules restrict any use of the information to criminally investigate or prosecute any alcohol or drug abuse patient.[facility] Reason for Visit (unrecogniz ed section and content) Specialty Diagnoses / Procedures Referred By Contact Referred To Contact Gastroenterology / GASTROENTEROLOGY Diagnoses Screening for colon cancer Procedures CONSULT TO GASTROENTEROLOGY OFFICE/OUTPATIENT [facility] MDM 60-74 MINUTES Amparo De Leon APRN.WAREHOUSE SHIPPING CLERK [address] [place] [address] If Gastroenterology Referral ID Status Reason Start Date Expiration Date V isits Requested Visits Authorized [id number] Closed Financial Clearance Not Required Patient Cleared - INN Insurance Found 12/10/2021 10/10/2022 1 1 Reason Comments CPAP Supplies Compliance report Reason Comments Opened In Error Reason Comments New Patient Specialty Diagnoses / Procedures Referred By Laila bermudez Referred To Contact SLEEP DISORDERS Diagnoses ZEYNEP Procedures Consult to Sleep Medicine Ted Monroe, DO [address] [place] [address] Neur Sleep [facility] [address] [place] [address] Referral ID Status Reason Start Date Expiration Date Visits Requested Visits Authorized [id number] Pending Review OON/Self Pay Override 03/04/2022 06/02/2022 [...] Referred By Laila bermudez Referred To Contact General Surgery / GENERAL SURGERY Diagnoses felicitas'd 30 min us left breast bx Procedures SURGERY 30 Self Corwin Norton MD [address] [place] [address] Referral ID Status Reason Start Date Expiration Date Visits Re quested Visits Authorized [id number] Closed 08/11/2023 10/10/2023 1 1 Reason Comments Radio Imaging Study Comments Reason Comments Radiology US Specialty Diagnoses / Procedures Referred By Laila bermudez Referred To Contact [facility] Diagnoses Abnormality of both breasts on screening mammogram Procedures US BREAST LTD LEFT US BREAST UNI REAL TIME WITH IMAGE LIMITED Monroe, Ted L, DO [address] [place] [address] [facility] [address] [place] [address] Referral ID Status Reason Start Date Expiration Date V isits Requested Visits Authorized [id number] Closed Auto-Generate d Referral 08/03/2023 10/10/2023 1 1 Reason Comments Appointment Reason Comments Appointment Documentation purpos e. Reason Comments Well Child Reason Onset Date Comments Refill Request 09/04/2023 Reason Comments Radiology MRI Specialty Diagnoses / Procedures Referred By Laila bermudez Referred To Contact [facility] Diagnoses Invasive ductal carcinoma of breast, female, left (HCC) Procedures MRI BREAST WO/W IVCON BILATERAL MRI BREAST WITHOUT&WITH CONTRAST W/CAD BILATERAL Maria Victoria Camilo PA-C [address] [place] [address] [place] [address] Referral ID Status Reason Start Date Expiration Date V isits Requested Visits Authorized [id number] Closed Auto-Generate d Referral 09/15/2023 10/10/2023 1 1 Reason Comments Breast Problem Reason Comments Schedule Surgery Reason Comments Established Patient regroup Reason Comments Consult Specialty Diagnoses / Procedures Referred By Laila bermudez Referred To Contact Radiation Oncology Diagnoses Malignant neoplasm of upper-outer quadrant of left breast in female, estrogen receptor positive (HCC) Abnormal mammogram with microcalcification Procedures RAD/ONC CONSULT OFFICE/OUTPATIENT NEW HIGH MDM 60-[place] [address] [place] [address] Referral ID Status Reason Start Date Expiration Date Visits Requested Visits Authorized [id number] Pending Review PCP Requested Referral 3 09/03/2024 1 1 Reason Comments Patient Education LEFT mastectomy with SN bx/mapping Reason Comments Returning Patient's Call Reason Comments Orders Care Teams (unrecognized sec tion and content) Surveyor Helper Rod Relationship Specialty Start Date End Date Ted Monroe, DO [address] [place] [address] PCP - General Family Practice 01/24/14 Surveyor Helper Rod Relationship Specialty Start Date End Date Ted Monroe, DO [address] [place] [address] PCP - General Family Practice 01/24/14 Surveyor Helper Rod Relationship Specialty Start Date End Date Ted Monroe, DO [address] [place] [address] PCP - General Family Practice 01/24/14 Surveyor Helper Rod Relationship Specialty Start Date End Date Ted Monroe, DO [address] [place] [address] PCP - General Family Practice 01/24/14 Surveyor Helper Rod Relationship Specialty Start Date End Date Ted Monroe, DO [address] [place] [address] PCP - General Family Practice 01/24/14 Surveyor Helper Rod Relationship Specialty Start Date End Date Ted Monroe, DO [address] [place] [address] PCP - General Family Practice 01/24/14 Surveyor Helper Rod Relationship Specialty Start Date End Date Ted Monroe, DO [address] [place] [address] PCP - General Family Practice 01/24/14 Surveyor Helper Rod Relationship Specialty Start Date End Date Ted Monroe, DO [address] [place] [address] PCP - General Family Practice 01/24/14 Surveyor Helper Rod Relationship Specialty Start Date End Date Ted Monroe, DO [address] [place] [address] PCP - General Family Practice 01/24/14 Surveyor Helper Rod Relationship Specialty Start Date End Date Ted Monroe, DO [address] [place] [address] PCP - General Family Practice 01/24/14 Surveyor Helper Rod Relationship Specialty Start Date End Date Ted Monroe, DO [address] [place] [address] PCP - General Family Medicine 01/24/14 Surveyor Helper Rod Relationship Specialty Start Date End Date Ted Monroe, DO [address] [place] [address] PCP - General Family Medicine 01/24/14 Surveyor Helper Rod Relationship Specialty Start Date End Date Ted Monroe, DO [address] [place] [address] PCP - General Family Medicine 01/24/14 Surveyor Helper Rod Relationship Specialty Start Date End Date Ted Monroe, DO [address] [place] [address] PCP - General Family Medicine 01/24/14 Surveyor Helper Rod Relationship Specialty Start Date End Date Ted Monroe, DO [address] [place] [address] PCP - General Family Medicine 01/24/14 Surveyor Helper Rod Relationship Specialty Start Date End Date Ted Monroe, DO [address] [place] [address] PCP - General Family Medicine 01/24/14 Surveyor Helper Rod Relationship Specialty Start Date End Date Ted Monroe, DO [address] [place] [address] PCP - General Family Medicine 01/24/14 Surveyor Helper Rod Relationship Specialty Start Date End Date Ted Monroe, DO [address] [place] [address] PCP - General Family Medicine 01/24/14 Surveyor Helper Rod Relationship Specialty Start Date End Date Ted Monroe, DO [address] [place] [address] PCP - General Family Medicine 01/24/14 Surveyor Helper Rod Relationship Specialty Start Date End Date Ted Monroe DO [address] [place] [address] PCP - General Family Medicine 01/24/14 Surveyor Helper Rod Relationship Specialty Start Date End Date Ted Monroe DO [address] [place] [address] PCP - General Family Medicine 01/24/14 Surveyor Helper Rod Relationship Specialty Start Date End Date Ted Monroe DO [address] [place] [address] PCP - General Family Medicine 01/24/14 Surveyor Helper Rod Relationship Specialty Start Date End Date Ted Monroe DO [address] [place] [address] PCP - General Family Medicine 01/24/14 Surveyor Helper Rod Relationship Specialty Start Date End Date Ted Monroe DO [address] [place] [address] PCP - General Family Medicine 01/24/14 Surveyor Helper Rod Relationship Specialty Start Date End Date Ted Monroe DO [address] [place] [address] PCP - General Family Medicine 01/24/14 Surveyor Helper Rod Relationship Specialty Start Date End Date Ted Monroe DO [address] [place] [address] PCP - General Family Medicine 01/24/14 Surveyor Helper Rod Relationship Specialty Start Date End Date Ted Monroe DO [address] [place] [address] PCP - General Family Medicine 01/24/14 Surveyor Helper Rod Relationship Specialty Start Date End Date Ted Monroe DO [address] [place] [address] PCP - General Family Medicine 01/24/14 Surveyor Helper Rod Relationship Specialty Start Date End Date Ted Monroe DO [address] [place] [address] PCP - General Family Medicine 01/24/14 Surveyor Helper Rod Relationship Specialty Start Date End Date Ted Monroe DO [address] [place] [address] PCP - General Family Medicine 01/24/14 Surveyor Helper Rod Relationship Specialty Start Date End Date Ted Monroe DO [address] [place] [address] PCP - General Family Medicine 01/24/14 Surveyor Helper Rod Relationship Specialty Start Date End Date Ted Monroe DO [address] [place] [address] PCP - General Family Medicine 01/24/14 Surveyor Helper Rod Relationship Specialty Start Date End Date Ted Monroe DO [address] [place] [address] PCP - General Family Medicine 01/24/14 Surveyor Helper Rod Relationship Specialty Start Date End Date Ted Monroe DO [address] [place] [address] PCP - General Family Medicine 01/24/14 Surveyor Helper Rod Relationship Specialty Start Date End Date Ted Monroe DO [address] [facility] [place] [address] PCP - General Family Medicine 01/24/14 Surveyor Helper Rod Relationship Specialty Start Date End Date Ted Monroe DO [address] [facility] [place] [address] PCP - General Family Medicine 01/24/14 Surveyor Helper Rod Relationship Specialty Start Date End Date Ted Monroe DO [address] [facility] [place] [address] PCP - General Family Medicine 01/24/14 Surveyor Helper Rod Relationship Specialty Start Date End Date Ted Monroe DO [address] [facility] [place] [address] PCP - General Family Medicine 01/24/14 Surveyor Helper Rod Relationship Specialty Start Date End Date Ted Monroe DO [address] [facility] [place] [address] PCP - General Family Medicine 01/24/14 Jacoby Guevara MD, MD [address] [place] [address] Physician Radiation Oncology 09/09/23 Surveyor Helper Rod Relationship Specialty Start Date End Date Ted Monroe DO [address] [facility] [place] [address] PCP - General Family Medicine 01/24/14 Jacoby Guevara MD, [address] [place] [address] Physician Radiation Oncology 09/09/23 Surveyor Helper Rod Relationship Specialty Start Date End Date Ted Monroe DO [address] [place] [address] PCP - General Family Medicine 01/24/14 Jacoby Guevara MD, MD [address] [place] [address] Physician Radiation Oncology 09/09/23 Surveyor Helper Rod Relationship Specialty Start Date End Date Ted Monroe DO [address] [place] [address] PCP - General Family Medicine 01/24/14 Jacoby Guevara MD, [address] [place] [address] Physician Radiation Oncology 09/09/23 Surveyor Helper Rod Relationship Specialty Start Date End Date Ted Monroe DO [address] [place] [address] PCP - General Family Medicine 01/24/14 Jacoby Guevara MD, [address] [place] [address] Physician Radiation Oncology 09/09/23 Surveyor Helper Rod Relationship Specialty Start Date End Date Ted Monroe DO [address] [place] [address] PCP - General Family Medicine 01/24/14 Jacoby Guevara MD, [address] [place] [address] Physician Radiation Oncology 09/09/23 Surveyor Helper Rod Relationship Specialty Start Date End Date Ted Monroe DO [address] [place] [address] PCP - General Family Medicine 01/24/14 Jacoby Guevara MD, [address] [place] [address] Physician Radiation Oncology 09/09/23 Surveyor Helper Rod Relationship Specialty Start Date End Date Ted Monroe DO [address] [place] [address] PCP - General Family Medicine 01/24/14 Jacoby Guevara MD, [address] [place] [address] Physician Radiation Oncology 09/09/23 Surveyor Helper Rod Relationship Specialty Start Date End Date Ted Monroe DO [address] [place] [address] PCP - General Family Medicine 01/24/14 Jacoby Guevara MD, [address] [place] [address] Physician Radiation Oncology 09/09/23 Surveyor Helper Rod Relationship Specialty Start Date End Date Ted Monroe DO [address] [place] [address] PCP - General Family Medicine 01/24/14 Jacoby Guevara MD, [address] [place] [address] Physician Radiation Oncology 09/09/23 Surveyor Helper Rod Relationship Specialty Start Date End Date Ted Monroe DO [address] [place] [address] PCP - General Family Medicine 01/24/14 Jacoby Guevara MD, [address] [place] [address] Physician Radiation Oncology 09/09/23 Surveyor Helper Rod Relationship Specialty Start Date End Date Ted Monroe DO [address] [place] [address] PCP - General Family Medicine 01/24/14 Jacoby Guevara MD [address] [place] [address] Physician Radiation Oncology 09/09/23 Surveyor Helper Rod Relationship Specialty Start Date End Date Ted Monroe DO [address] [place] [address] PCP - General Family Medicine 01/24/14 Jacoby Guevara MD [address] [place] [address] Physician Radiation Oncology 09/09/23 Surveyor Helper Rod Relationship Specialty Start Date End Date Ted Monroe DO [address] [place] [address] PCP - General Family Medicine 01/24/14 Jacoby Guevara MD [address] [place] [address] Physician Radiation Oncology 09/09/23 INFORMATION SOURCE (unrecogn ized section and content) DATE CREATED AUTHOR AUTHOR'S ORGANIZ ATION 11/04/2023 [facility] DATE CREATED AUTHOR AUTHOR'S ORGANIZ ATION 11/17/2023 [facility] DATE CREATED AUTHOR AUTHOR'S ORGANIZ ATION 11/18/2023 [facility] FOR RECORDS PERTAINING TO PATIENTS WHO ARE [...] BE BASED ON THE PRIMARY CLINICAL RECORDS. [facility] [facility]. provides no warranty or guarantee of the accuracy or completeness of information in this document.
[2023-11-19] MEDS: Ipratropium/Albuterol Sulfate 3 ML AMPUL.NEB INHALATION (06:47)
[2023-11-19 06:51] LABS: Differential Indicated SCAN CRITERIA MET
[2023-11-19 07:00] LABS: Anion Gap 8 (5-15); BUN 20 mg/dL (7-18); BUN/Creat Ratio 17.5 RATIO (10-20); Calcium,Total 8.7 mg/dL (8.5-10.1); Chloride 104 mmol/L (98-107); Creatinine, Serum 1.14 mg/dL (0.55-1.02); EST Glomerular Filtration Rate 52 mL/min (>60); Est Glom Filt Rate - Afr Amer 62 mL/min (>60); Estimated Creatinine Clearance 71.55 ml/min; Glucose 106 mg/dL (74-106); Magnesium 1.8 mg/dL (1.6-2.6); Potassium 2.6 mmol/L (3.5-5.1); Sodium Level 139 mmol/L (136-145)
[2023-11-19 07:38] LABS: Platelet Estimate MOD (ADEQ); Platelet Morphology CLUMPED
[2023-11-19] MEDS: Potassium Chloride 10mEq/100mL 10 MEQ/100 ML IV.SOLN. 100 MEQ IV BOLUS ×2 (07:49→08:52)
[2023-11-19 07:53] LABS: Lactic Acid 0.9 mmol/L (0.4-1.9)
[2023-11-19] MEDS: Potassium Chloride Oral Soln 20 MEQ/15 ML UDC 40 MEQ PO (07:54)
--- NOTE | 2023-11-19 08:23 | PCM.HP.STD ---
HPI - General General Date of Admission: 11/19/23 Date of Service: 11/19/23 Chief Complaint: Cough, headache, bodyaches, diarrhea, fatigue, fevers, dyspnea. HPI Narrative The patient is a 63 y/o F w/ PMHx: Possible CKD stage III unclear subtype, Breast L sided CA s/p recent mastectomy at [facility] following with Dr. Lopez with issues with bleeding (celebrex/IBU held) with recent admission RODERICK removal per her surgeon request, HTN, HLD, Chronic migraines, ZEYNEP on CPAP, Hx Nephrolithiasis, Anxiety and Depression, recent discharge 11/17/23 following evaluation for acute L knee pain/debility with gout flare diagnosis discharged to home on prednisone therapy who now re-presents to the [facility] ED on 11/19/23 with history of now 48 hours of throbbing headache, nonproductive cough, significant dyspnea worse with exertion, body aches, fevers, mild congestion as well as loose stools reporting that she had gone back to work and 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 Workup in the ED included T98.1, heart rate 75, BP initially 161/63 with most recent repeat 136/62, respiratory rate 16, 93% on room air with ambulation trial with patient dropping to 87% improving with supplemental oxygen and rest, CBC with a BC 8.6, hemoglobin 11.2, MCV 86, platelet count pending upon evaluation with lymphopenia, BMP with potassium 2.6 with noted magnesium 1.8 of note, BUN/creatinine 20/1.14, lactic acid 0.9, SARS COVID-negative, RSV PCR negative, influenza A positive as suspected, blood culture x 2 pending per ED, CTPA w/ postsurgical absence of the left breast otherwise negative CTA chest. In the ED patient supplemented with oral liquid potassium and IV potassium as well as administration of Tamiflu single dose 75 mg p.o. x 1. [facility] Medical History Breast cancer, left History of nephrolithiasis HLD (hyperlipidemia) HTN (hypertension) Migraines ZEYNEP on CPAP Osteoarthritis Home Medications celecoxib 200 mg capsule 200 mg PO DAILY 10/10/13 [History Last Taken 09/21/18] hydrochlorothiazide 12.5 mg capsule 12.5 mg PO DAILY 05/29/18 [History Last Taken Unknown] metoprolol succinate 100 mg tablet,extended release 24 hr 100 mg PO QHS 05/29/18 [History Last Taken 09/26/18 20:30] fluoxetine 20 mg capsule 20 mg PO DAILY 09/26/18 [History Last Taken Unknown] ibuprofen 600 mg tablet 600 mg PO 4X/DAY pain or cramping #30 tabs 09/27/18 [Rx Last Taken Unknown] amlodipine 2.5 mg tablet 2.5 mg PO DAILY 11/16/23 [History Last Taken Unknown] oxycodone-acetaminophen 5 mg-325 mg tablet 1 tab PO Q6H PRN PRN Pain 3 days #12 TABLETS 11/16/23 [Rx Last Taken Unknown] rosuvastatin 10 mg tablet 10 mg PO QHS 11/16/23 [History Last Taken Unknown] prednisone 20 mg tablet 40 mg (2 x 20 mg) PO DAILY 7 days #14 tabs 11/17/23 [Rx Last Taken Unknown] Allergy/AdvReac Type Severity Reaction Status Date / Time No Known Allergies Allergy Verified 11/15/23 17:54 Family History Mother Dementia Father Skin cancer (melanoma) Heart disease Hypertension CAD (coronary artery disease) Surgical History History of dental surgery History of left mastectomy S/P cystoscopy with ureteral stent placement Social History household members: none Smoking Status: Never smoker alcohol intake: never substance use type: does not use ROS ROS Narrative Admission Review of Systems: CONSTITUTIONAL: No weight loss, + fever, chills, weakness or fatigue. HEENT: + Congestion, rhinorrhea, mildly sore throat, sneezing. Eyes: No visual loss, blurred vision, double vision or yellow sclerae. Ears, Nose, Throat: No hearing loss. SKIN: No rash or itching, lesions, wounds. CARDIOVASCULAR: No chest pain, chest pressure or chest discomfort, palpitations, edema, orthopnea, syncopal events. RESPIRATORY: + Shortness of breath, cough without marked sputum. No wheezing, hemoptysis. GASTROINTESTINAL: + Anorexia, diarrhea. No nausea, vomiting, abdominal pain, melena, BRBPR. GENITOURINARY: No dysuria, frequency, urgency or retention. NEUROLOGICAL: No headache, dizziness, syncope, paralysis, ataxia, numbness or tingling in the extremities, focal weakness, change in bowel or bladder control, seizure. MUSCULOSKELETAL: + muscle, back pain, joint pain or stiffness. HEMATOLOGIC: + Anemia, easy bleeding and bruising. LYMPHATICS: No enlarged nodes. No history of splenectomy. PSYCHIATRIC: + History of anxiety and depression. ENDOCRINOLOGIC: + reports of sweating, cold or heat intolerance. No polyuria or polydipsia. ALLERGIES: No history of asthma, hives, eczema or rhinitis. Vital Signs Vital Signs Vital Signs: 11/19/23 05:40 11/19/23 06:47 11/19/23 07:56 Temperature 98.1 F Temperature Source Oral Pulse Rate 75 75 67 Respiratory Rate 16 20 H 16 Respiratory Pattern Tachypnea Blood Pressure 161/63 H 136/62 H Blood Pressure Mean 95 86 Pulse Ox 93 95 Oxygen Delivery Method Room Air Room Air Weight Weight: 285 lb 15.033 oz Body Mass Index (BMI) 46.1 Physical Exam Narrative Physical Examination: General: Awake, alert, oriented x 3 and cooperative, laying in the ED bed, fatigued, ill-appearing. Skin: Normal color, normal turgor, no icterus, no cyanosis except for occasional staged ecchymoses likely recent IVs and lab draws from recent admission, status post recent RODERICK drain removal well-appearing left lateral chest. HEENT: AT/NC, EOMI, PERRLA, dry MM, no carotid bruits or JVD noted; however, habitus with thick neck makes evaluation difficult. Lungs: Diminished, greater bases, mildly decreased effort, no evidence of any distress, no rales, ronchi or wheezing. Heart: Regular rate and rhythm; no gallop, rub audible. Abdomen: Soft, morbidly obese, NTTP, ND, hyperactive BS, difficult to discern HSM given habitus. Extremities: No cyanosis, no clubbing, no marked peripheral edema, left knee moving with greater ease since prior admission. Neurological: Patient awake, alert, oriented as noted, cognitive function intact; pupils equally reactive to light and accommodation, cranial nerves grossly normal, moving all 4 extremities, no focal deficits, strength moderately to severely globally decreased. Psychiatric: Affect appears flat, fatigued, ill-appearing, no acute evidence of depressive or anxiety feelings but does have underlying history. Results Lab / Micro Data 11/19/23 06:11 11/19/23 06:11 Labs: Laboratory Results - last 24 hr 11/19/23 06:11: WBC 8.6, RBC 3.99 L, Hgb 11.2 L, Hct 34.3 L, MCV 86.0, MCH 28.1, MCHC 32.7, RDW Std Deviation 42.5, RDW Coeff of Danilo 13.4, MPV 11.9, Immature Gran % (Auto) 0.600, Neut % (Auto) 78.3 H, Lymph % (Auto) 8.6 L, [place] % (Auto) 11.9 H, Eos % (Auto) 0.5, Baso % (Auto) 0.1, Absolute Neuts (auto) 6.8, Absolute Lymphs (auto) 0.74 L, Nucleated RBC % 0, Platelet Estimate MOD, Plt Morphology Comment CLUMPED, Sodium 139, Potassium 2.6 L*, Chloride 104, Carbon Dioxide 27.0, Anion Gap 8, BUN 20 H, Creatinine 1.14 H, Estim Creat Clear Calc 71.55, Est GFR (MDRD) Af Amer 62, Est GFR (MDRD) Non-Af 52 L, BUN/Creatinine Ratio 17.5, Glucose 106, Calcium 8.7, Magnesium 1.8 11/19/23 06:17: Lactic Acid 0.9 Micro: Microbiology 11/19/23 06:59 Mucosa - Nose SARS-CoV-2, Influenza & RSV (PCR) - Final Influenzae A Imaging Radiology Impression Chest CTA 11/19/23 06:17 IMPRESSION: Postsurgical absence of the left breast otherwise negative CTA chest.. Electronically Signed: Candido Graham MD at 8:14 EST , Assessment & Plan Assessment/Plan (1) Hypoxia: (2) Influenza A: PLAN: Plan The patient is a 63 y/o F w/ PMHx: Possible CKD stage III unclear subtype, Breast L sided CA s/p recent mastectomy at [facility] following with Dr. Lopez with issues with bleeding (celebrex/IBU held) with recent admission RODERICK removal per her surgeon request, HTN, HLD, Chronic migraines, ZEYNEP on CPAP, Hx Nephrolithiasis, Anxiety and Depression, recent discharge 11/17/23 following evaluation for acute L knee pain/debility with gout flare diagnosis discharged to home on prednisone therapy who now re-presents to the [facility] ED on 11/19/23 with history of now 48 hours of throbbing headache, nonproductive cough, significant dyspnea worse with exertion, body aches, fevers, mild congestion as well as loose stools reporting that she had gone back to work and 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 1. Acute Debility, Adult FTT, Acute Hypoxia (decreased to 87%) secondary to Acute Influenza A Viral Syndrome: Will admit to [facility], maintain on oxygen with wean as tolerated, continue ATC budesonide, PRN albuterol, HOB, IS parameters, maintain on tamiflu, continue supportive care, as needed cough regimen, antidiarrheal regimen as needed, PT/OT/CM consultation for discharge planning. 2. Hypokalemia: Admission K+ 2.6, magnesium level 1.8 per ED, supplementation given, repeat level this afternoon and in the AM. Will plan to start BID scheduled regimen as had hypokalemia prior admission also. 3. Recent L knee gout flare: Will continue fall precautions, maintain on prior prednisone regimen, continue PT/OT/CM consultation as noted above. 4. Left sided breast cancer, unclear specific type: Patient is uncertain of type but states potentially ductal carcinoma, status post recent left mastectomy approximately 7 weeks prior, RODERICK drain removed prior admission, continue dry dressings to region. Encouraged continued follow-up with Dr. Lopez and her surgeon. 5. Hypertension: Continue home regimen including metoprolol, will hold hydrochlorothiazide until 11/20/23, PRN hydralazine. 6. Suspected Chronic Kidney Disease Stage III, unclear subtype: Admission BUN/Cr 20/1.14, GFR 52, again consistent with CKD stage III as prior admission also, continue to trend, hydration given #1. 7. Anxiety and depression: We will continue patient on fluoxetine regimen. 8. Obesity: Weight loss and lifestyle changes encouraged. 9. Chronic migraines: Per current list not on chronic regimen, if necessary may add. 10. Hyperlipidemia: Per current list on a regimen, defer to outpatient. 11. ZEYNEP: CPAP nightly. 12. DVT prophylaxis: Lovenox. 13. CODE status: Patient SHEILA is her children and living will is currently in place. Full Code status. Charges/Coding Visit Charges Inpatient E&M: 02104 Init Hosp L3
--- NOTE | 2023-11-19 08:25 | EX.ED.DYSGE1 ---
HPI History of Present Illness Chief Complaint: Shortness of Breath Informant: patient and family Narrative Narrative: Patient is a 63-year-old with history of breast cancer requiring mastectomy which then led to hematoma and need for drain placement. She was then admitted to the hospital recently secondary to gout of the right knee with intractable pain and inability to ambulate. She was discharged home and over the last 2 days has developed fever up to 102 with loose stool cough congestion headache and shortness of breath. Secondary to these new symptoms she was brought in for evaluation [facility] Medical History (Updated 11/19/23 @ 08:[address] Shakir Turner DO) Breast cancer, left History of nephrolithiasis HLD (hyperlipidemia) HTN (hypertension) Migraines ZEYNEP on CPAP Osteoarthritis Home Medications celecoxib 200 mg capsule 200 mg PO DAILY 10/10/13 [History Last Taken 09/21/18] hydrochlorothiazide 12.5 mg capsule 12.5 mg PO DAILY 05/29/18 [History Last Taken Unknown] metoprolol succinate 100 mg tablet,extended release 24 hr 100 mg PO QHS 05/29/18 [History Last Taken 09/26/18 20:30] fluoxetine 20 mg capsule 20 mg PO DAILY 09/26/18 [History Last Taken Unknown] ibuprofen 600 mg tablet 600 mg PO 4X/DAY pain or cramping #30 tabs 09/27/18 [Rx Last Taken Unknown] amlodipine 2.5 mg tablet 2.5 mg PO DAILY 11/16/23 [History Last Taken Unknown] oxycodone-acetaminophen 5 mg-325 mg tablet 1 tab PO Q6H PRN PRN Pain 3 days #12 TABLETS 11/16/23 [Rx Last Taken Unknown] rosuvastatin 10 mg tablet 10 mg PO QHS 11/16/23 [History Last Taken Unknown] prednisone 20 mg tablet 40 mg (2 x 20 mg) PO DAILY 7 days #14 tabs 11/17/23 [Rx Last Taken Unknown] Allergy/AdvReac Type Severity Reaction Status Date / Time No Known Allergies Allergy Verified 11/15/23 17:54 Family History (Updated 11/16/23 @ 07:[address] Rama Su MD) Mother Dementia Father Skin cancer (melanoma) Heart disease Hypertension CAD (coronary artery disease) Surgical History (Updated 11/16/23 @ 07:[address] Rama Su MD) History of dental surgery History of left mastectomy S/P cystoscopy with ureteral stent placement Social History (Updated 11/16/23 @ 07:[address] Rama Su MD) household members: none Smoking Status: Never smoker alcohol intake: never substance use type: does not use ROS ROS ED Constitutional Constitutional ED: Reports chills and fever(s) ENT ENT ED: Reports rhinorrhea and sore throat Cardiovascular Cardiovascular: Denies chest pain Respiratory/Chest Respiratory/Chest: Reports cough and dyspnea Gastrointestinal Gastrointestinal: Reports diarrhea; Denies abdominal pain, nausea or vomiting Genitourinary Genitourinary ED: Denies dysuria Musculoskeletal Musculoskeletal: Reports myalgias Integumentary Denies rash Neurologic Neurologic: Reports headache(s) Hematologic/Lymphatic Hematologic/Lymphatic: Denies easy bleeding or easy bruising EXAM Physical Exam Const Vital Signs: 11/19/23 05:40 11/19/23 06:47 11/19/23 07:56 Temperature 98.1 F Temperature Source Oral Pulse Rate 75 75 67 Respiratory Rate 16 20 H 16 Respiratory Pattern Tachypnea Blood Pressure 161/63 H 136/62 H Blood Pressure Mean 95 86 Pulse Ox 93 95 Oxygen Delivery Method Room Air Room Air Positive well nourished, well developed and obese General Appearance ED: well developed Nutritional Appearance: obese HEENT HEENT Narrative: Cobblestoning is noted in the posterior pharynx consistent with sinus drainage without airway edema or compromise Eyes PERRL and EOMs intact bilaterally General Eye ED: Negative for scleral icterus Neck supple and no JVD Neck Narrative: No scleral icterus noted Chest Wall Chest Narrative: Postsurgical changes to the chest wall consistent with recent mastectomy without secondary changes to suggest infection or bleeding Resp Resp Narrative: Breath sounds are diminished throughout with diffuse expiratory wheeze and patient is tachypneic with mild accessory muscle use Cardio regular rate and regular rhythm GI non-tender and non-distended GI Narrative: Abdomen is soft nontender nondistended with hyperactive bowel sounds no voluntary guarding or rigidity or pulsatile mass Auscultation: hyperactive bowel sounds Palpation: soft Extremity normal to inspection Extremity Narrative: No asymmetric edema no pitting edema negative Homans' sign bilaterally Neuro oriented x3, CN's II-XII intact bilaterally and no sensory deficits noted Sensorium / Orientation: alert Motor Exam: strength 5/5 throughout Psych mental status grossly normal Skin no rashes or lesions noted MDM MDM MDM Narrative Medical decision making narrative: Patient presented to the ER afebrile and was satting in the low to mid 90s on room air but was breathing roughly 30 times a minute. With this she also had diffuse wheeze and accessory muscle use indicating there was potential pneumonia. Patient also has high risk for pulmonary embolus based on her recent surgery and hospitalization. Secondary to this basic blood work was obtained and a CTA was ordered to rule out pneumonia or PE. Labs revealed hypokalemia at 2.6 but otherwise no clinically significant findings. CT revealed no PE or pneumonia. However her influenza swab was positive for flu leg which correlates with her fever and symptoms. At this time the patient was ambulated on room air as she does not normally need oxygen and her pulse ox desatted to 87%. Therefore as patient desats with ambulation and does not have oxygen present at home to provide care she is not safe for discharge and will be admitted to the hospital for further care. Case was discussed with the hospitalist Dr. Su who recommends Tamiflu at this time as patient is at her second day of symptoms with influenza History & Record Review Discussion w/independent historian: Patient and Family Lab Data Labs: Laboratory Results - last 24 hr 11/19/23 11/19/23 06:11 06:17 WBC 8.6 RBC 3.99 L Hgb 11.2 L Hct 34.3 L MCV 86.0 MCH 28.1 MCHC 32.7 RDW Std Deviation 42.5 RDW Coeff of Danilo 13.4 MPV 11.9 Immature Gran % (Auto) 0.600 Neut % (Auto) 78.3 H Lymph % (Auto) 8.6 L [place] % (Auto) 11.9 H Eos % (Auto) 0.5 Baso % (Auto) 0.1 Absolute Neuts (auto) 6.8 Absolute Lymphs (auto) 0.74 L Nucleated RBC % 0 Platelet Estimate MOD Plt Morphology Comment CLUMPED Sodium 139 Potassium 2.6 L* Chloride 104 Carbon Dioxide 27.0 Anion Gap 8 BUN 20 H Creatinine 1.14 H Estim Creat Clear Calc 71.55 Est GFR (MDRD) Af Amer 62 Est GFR (MDRD) Non-Af 52 L BUN/Creatinine Ratio 17.5 Glucose 106 Lactic Acid 0.9 Calcium 8.7 Magnesium 1.8 Radiography Diagnostic Testing: Clinical Impression(s) from Imaging Studies Chest CTA 11/19/23 06:17 IMPRESSION: Postsurgical absence of the left breast otherwise negative CTA chest.. Electronically Signed: Candido Graham MD at 8:14 EST , Management Discussion w/another healthcare provider: Hospitalist Discharge Plan Dx/Rx/DC Orders Clinical Impression: Influenza A, Hypoxia, Acute hypokalemia Disposition Disposition: Acute Care Hospital [facility]
[2023-11-19] MEDS: Ketorolac 15 MG/ML Vial IV (08:51)
[2023-11-19] MEDS: Oseltamivir Phosphate 75 MG Capsule PO ×2 (08:51→20:55)
--- OUTSIDE RECORDS SUMMARY | 2023-11-19 09:16 | XMS RPT_ITS | CCD ---
Author Name Unknown Address [address] [place] [address] Organization [facility] Care Team Providers Care Motorboat Operator Name Role Phone Ted Monroe DO Primary [...] (BMI) of 45.0 to 49.9 in adult ([facility])] Onset: 3 Chronic Other nutritional; endocrine; and metabolic disorders (1 source) Body mass index (BMI) 45.0-49.9, adult; Translations: [Class 3 severe obesity due to excess calories with serious comorbidity and body mass index (BMI) of 45.0 to 49.9 in adult ([facility])] Onset: 3 Chronic Other screening for suspected [...] breast in female, estrogen receptor positive (HCC) ([facility])] Onset: 3 Episodic Secondary malignancies (2 sources) Secondary and unspecified malignant neoplasm of axilla and upper limb lymph nodes; 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[facility])] Onset: 4 Chronic Spondylosis; intervertebral disc disorders; [...] height 167.6 cm Pacc 1 Work Phone: [facility] 09-20-2023 13:58-0500 Body temperature 97.11 [degF] Pac 1 Work Phone: [facility] 09-20-2023 13:58-0500 Body weight 130.64 kg Pacc 1 Work Phone: [facility] 09-20-2023 13:58-0500 Diastolic blood pressure 72 mm[Hg] Pacc 1 Work Phone: [facility] 09-20-2023 13:58-0500 Heart rate 64 /min Pacc 1 Work Phone: [facility] 09-20-2023 13:58-0500 Respiratory rate 16 /min Pacc 1 Work Phone: [facility] 09-20-2023 13:58-0500 SaO2% (BldA) [Mass fraction] 94 % Pacc 1 Work Phone: [facility] 09-20-2023 13:58-0500 Systolic blood pressure 128 mm[Hg] Pacc 1 Work Phone: [facility] 09-20-2023 09:37-0500 Body temperature 97.59 [degF] Jacoby Guevara MD, MD Work Phone: [facility] 09-20-2023 09:37-0500 Body weight 130.86 kg Jacoby Guevara MD, MD Work Phone: [facility] 09-20-2023 09:37-0500 Diastolic blood pressure 76 mm[Hg] Jacoby Guevara MD, MD Work Phone: [facility] 09-20-2023 09:37-0500 Heart rate 52 /min Jacoby Guevara MD, MD Work Phone: [facility] 09-20-2023 09:37-0500 Respiratory rate 15 /min Jacoby Guevara MD, MD Work Phone: [facility] 09-20-2023 09:37-0500 SaO2% (BldA) [Mass fraction] 96 % Jacoby Guevara MD, MD Work Phone: [facility] 09-20-2023 09:37-0500 Systolic blood pressure 137 mm[Hg] Jacoby Guevara MD, MD Work Phone: [facility] 08-27-2023 13:00-0500 Body weight 130.3 kg Harper Lopez DO Work Phone: [facility] 03-23-2022 11:32-0400 Diastolic blood pressure 71 mm[Hg] Corwin Norton MD Work Phone: [facility] 03-23-2022 11:32-0400 Heart rate 54 /min Corwin Norton MD Work Phone: [facility] 03-23-2022 11:32-0400 Respiratory rate 16 /min Corwin Norton MD Work Phone: [facility] 03-23-2022 11:32-0400 SaO2% (BldA) [Mass fraction] 95 % Corwin Norton MD Work Phone: [facility] 03-23-2022 11:32-0400 Systolic blood pressure 133 mm[Hg] Corwin Norton MD Work Phone: [facility] 03-23-2022 09:56-0400 Body temperature 98.49 [degF] Corwin Norton MD Work Phone: [facility] 03-23-2022 09:56-0400 Body weight 120.2 kg Corwin Norton MD Work Phone: [facility] Encounters Encounter Date Encounter Type Care Provider Facility Start: 11-18-2023 ambulatory Sanam Ese hurley LPN Work Phone: [facility] Procedures Date Procedure Procedure Detail Performing Clinician Start: 10-08-2023 Antibody screen TED MONROE Plan of Treatment Date Care Activity Detail Author Start: 03-23-2032 Colonoscopy COLONOSCOPY [facility] Start: 03-23-2032 COLORECTAL CANCER SCREENING COLORECTAL CANCER SCREENING [facility] Start: 03-23-2032 Screening for malign ant neoplasm of colon [facility] Start: 08-02-2029 Urine microalbumin profile [facility] Start: 04-28-2028 PAP TESTING PAP TESTING [facility] Start: 04-28-2028 Screening for malign ant neoplasm of cervix Pap Testing [facility] Start: 11-14-2027 Lipid 1996 panel - S dharmesh or Plasma Lipid Screening [facility] Start: 11-14-2027 Lipid panel Lipid Screening [facility] Start: 11-14-2027 LIPID SCREEN LIPID SCREEN [facility] Start: 03-23-2027 Colonoscopy COLONOSCOPY [facility] Start: 03-23-2027 COLORECTAL CANCER SCREENING COLORECTAL CANCER SCREENING [facility] Start: 10-09-2026 Diabetes Screening Diabetes Screenin g [facility] Start: 09-23-2026 Diabetes Screening Diabetes Screenin g [facility] Start: 09-20-2026 Diabetes Screening Diabetes Screenin g [facility] Start: 05-22-2026 LIPID SCREEN LIPID SCREEN [facility] Start: 11-14-2025 DIABET[facility] Start: 11-14-2025 Diabetes Screening Diabetes Screenin g [facility] Start: 09-12-2025 PAP TESTING PAP TESTING [facility] Start: 09-20-2024 BP Controlled (<130/80) BP Controlle d (<130/80) [facility] Start: 08-03-2024 Mammography Mammogram Screening [facility] Start: 08-03-2024 Screening for malign ant neoplasm of breast Mammogram Screening [facility] Start: 07-02-2024 Mammography Mammogram Screening [facility] Start: 05-22-2024 DIABETES SCREEN DIABETES SCREEN [facility] Start: 12-03-2023 ANNUAL PCP TEAM LUBRICATION SERVICER JAZMINE DISEASE VISIT ANNUAL PCP TEAM CHRONIC DISEASE VISIT [facility] Start: 12-03-2023 BP CONTROLLED (<130/80) BP CONTROLLE D (<130/80) [facility] Start: 12-03-2023 COVID-19 VACCINE (4 - Booster for Pfizer series) COVID-19 VACCINE (4 - Booster for Pfizer series) [facility] Immunizations Immunization Date Immunization Notes Care Provider Jeri aceves 08-24-2019 influenza virus vaccine, unspecified formulation Milly Hodge APRN.PODIATRIC FOOT AND ANKLE SPECIALIST Work Phone: [facility] 08-02-2019 tetanus toxoid, redu asif diphtheria toxoid, and acellular pertussis vaccine, adsorbed Beth Maguire DRUG SAFETY SPECIALIST.PODIATRIC FOOT AND ANKLE SPECIALIST Work Phone: [facility] 08-13-2018 influenza, injectabl e, quadrivalent, contains preservative Beth Maguire DRUG SAFETY SPECIALIST.PODIATRIC FOOT AND ANKLE SPECIALIST Work Phone: [facility] 07-27-2017 influenza, injectabl e, quadrivalent, contains preservative Beth Maguire DRUG SAFETY SPECIALIST.PODIATRIC FOOT AND ANKLE SPECIALIST Work Phone: [facility] 2016 tetanus toxoid, redu asif diphtheria toxoid, and acellular pertussis vaccine, adsorbed Beth Maguire DRUG SAFETY SPECIALIST.PODIATRIC FOOT AND ANKLE SPECIALIST Work Phone: [facility] 08-11-2016 influenza, injectabl e, quadrivalent, contains preservative Beth Maguire DRUG SAFETY SPECIALIST.PODIATRIC FOOT AND ANKLE SPECIALIST Work Phone: [facility] 07-06-2013 influenza virus vaccine, unspecified formulation Beth Maguire DRUG SAFETY SPECIALIST.PODIATRIC FOOT AND ANKLE SPECIALIST Work Phone: [facility] Work Phone: Payers Date Payer Category Payer Unknown [id number] 2020 Unknown [facility] P[employer] [id number] 2020-Present [phone] [address] [place] [address] PPO [id number] 2020 Unknown [id number] Social History Date Type Detail Facility Tobacco smoking stat [facility] Never smoked tobacco [facility] Work Phone: Start: 02-11-2022 End: 11-09-2023 Alcohol intake Current drinker of alcohol (finding) [facility] Start: 05-31-2021 End: 12-03-2022 History SDOH Alcohol Frequency 2 [facility] Start: 05-31-2021 End: 12-03-2022 History SDOH Alcohol Std Drinks 1 [facility] Start: 05-31-2021 End: 12-03-2022 History SDOH Social Connections Phone 5 [facility] Start: 05-31-2021 History SDOH Social Connections Get Together 4 [facility] Start: 05-31-2021 End: 12-03-2022 History SDOH Physical Activity DPW 0 [facility] Start: 05-15-2020 Education 18 [facility] Start: 1960 Sex Assigned At Female [facility] Start: 01-30-2022 End: 05-08-2022 Exposure to SARS-CoV-2 (event) Not sure [facility] Start: 11-12-2022 End: 12-03-2022 History SDOH Social Connections Get Together 3 [facility] Start: 12-03-2022 End: 08-11-2023 History of Social function [facility] Start: 12-03-2022 End: 08-11-2023 Social connection and isolation panel [facility] Do you belong to any clubs or organizations such as jain groups, unions, fraternal or athletic groups, or school groups? Yes [facility] Are you now , , , , never or living with a partner? [facility] How often to you hav e a drink containing alcohol? Monthly or less [facility] How many standard dr inks containing alcohol do you have on a typical day? 1 or 2 [facility] How often do you hav e 6 or more drinks on 1 occasion? Never [facility] How hard is it for y ou to pay for the very basics like food, housing, medical care, and heating Not hard at all [facility] Do you feel stress - tense, restless, nervous, or anxious, or unable to sleep at night because your mind is troubled all the time - these days [OSQ] Only a little [facility] (I/We) worried wheth er (my/our) food would run out before (I/we) got money to buy more. Never true [facility] In the past 12 month s, was there a time when you were not able to pay the mortgage or rent on time? No [facility] Start: 03-10-2019 Gender identity Identifies as female gender (finding) [facility] Start: 03-10-2019 Sexual orientation Heterosexual (finding) [facility] Start: 08-27-2023 Alcohol Comment rare [facility] Medical Equipment Procedure Code Equipment Code [...] signed by Dr. Bertrand and faxed to [facility]. Last office visit with Dr. Bertrnad 03-24-2022. Routing to scheduling to assist patient with scheduling a follow up appointment. documented in this encounter [facility] 11-16-2023 Miscellaneous Notes Tristian, Patient returned Dr. Lopez's call. Per patient she missed it as she is in [facility] with legs complaint. Patient is requesting a call from Dr. Lopez, as she has access to her phone now. Thank you documented in this encounter [facility] 11-16-2023 Miscellaneous Notes Called and left message inquiring about her mastectomy drain and recent Oncotype results. John documented in this encounter [facility] 11-09-2023 Note HNO ID: [id number] Author: ANDREW LOPEZ DO Service: ? Author [...] Stain intensity: moderate to strong Progesterone Receptor (KS) Positive 51-60 % Stain intensity: moderate to [...] A. Breast, left, mastectomy: ---Invasive ductal carcinoma, [place] grade 2 (of 3), situated in the [...] carcinoma Ductal Carc (more content not included)... [facility] 11-03-2023 Note HNO ID: [id number] Author: MICHA HOYOS CNMT Service: Radiology Author [...] 10:15 PATIENT DISCHARGED TO: Ambulatory patient, left [place] department area. A Diagnostic radioactive procedure has taken place, with no further precautions necessary other than routine body substance precautions. More information regarding radiation safety can be found using this link: [email or web address] 20Diagnostic%20Nuclear%20Medicine% 20Procedures.pdf SIGNATURE: SUN Restrepo PATIENT NAME: Ramona Villegas DATE: November 03, 2023 TIME: 11:00 AM PAGER/CONTACT #: [facility] 11-01-2023 Note HNO ID: [id number] Author: JOY HUNT RT(R) Service: ? Author Type: Leather Whitener Type: Progress Notes Filed: 11/01/2023 13:44 Note [...] DATE: November 01, 2023 TIME: 1:44 PM [facility] 10-29-2023 Note HNO ID: [id number] Author: JACOBY GUEVARA MD Service: ? Author Type: Physician Type: Progress Notes Filed: 10/29/2023 15:11 Note Text: Radiation Oncology - Follow Up Note PATIENT NAME: Ramona Villegas PATIENT DIAGNOSIS: Stage IB, pT2 pN2a (sn), grade 2 invasive ductal carcinoma of the left breast s/p left mastectomy and sentinel node biopsy. Positive extranodal extension. It's ER positive (91-100%, moderate to strong), KS positive (51-60%, moderate to strong) and Her2 [...] It's ER positive (91-100%, moderate to strong), KS positive (51-60%, moderate to strong) and Her2 [...] management options and (more content not included)... [facility] 10-28-2023 Note HNO ID: [id number] Author: GLADYS MESSINA MD Service: ? Author [...] options Anatomic stage: pathological prognostic stage IB ([id number]) invasive ductal carcinoma with ER+, KS+, HER2 negative status. Pathway discussed: Yes Clinical [...] old lady with Pathological prognostic stage IB ([id number]) invasive ductal carcinoma with ER+, KS+, HER2 negative status Bleeding issues requiring evacuation [...] and patient, after full discussion as appropriate. [facility] 10-20-2023 Note HNO ID: [id number] Author: MARIA VICTORIA CAMILO PA-C Service: ? Author Type: Physician Homebound Teacher Type: Progress Notes Filed: 10/20/2023 15:27 Note [...] A. Breast, left, mastectomy: ---Invasive ductal carcinoma, En[place] grade 2 (of 3), situated in the [...] of no special type (ductal) Histologic Grade (Enoree Histologic Score) Glandular (Acinar) / Tubular Differentiation [...] Examined (sentinel and non-sentinel) 4 Number of [place] Nodes Examined 4 pTNM CLASSIFICAT (more content not included)... [facility] 10-19-2023 Note HNO ID: [id number] Author: ANDREW LOPEZ, DO Service: ? Author [...] Stain intensity: moderate to strong Progesterone Receptor (KS) Positive 51-60 % Stain intensity: moderate to [...] carcinoma Ductal Carc (more content not included)... [facility] 10-13-2023 Note HNO ID: [id number] Author: Maria Victoria Camilo PA-C Service: ? Author Type: Physician Homebound Teacher Type: Progress Notes Filed: 10/13/2023 11:25 AM [...] Dr. Lopez (Breast Surgeon) Ted Monroe [address] [place] [address] [facility] 10-10-2023 Note HNO ID: [id number] Author: Valente Jesus Service: Pharmacy Author Type: ? Type: Plan of Care Filed: 10/13/2023 11:12 AM Note Text: PHARMACY BEDSIDE DELIVERY SERVICE Patient Name: Ramona Villegas The marked outpatient medications were filled at [facility] and picked up at the pharmacy [...] I take this medication? Valente Jesus PAGER: [phone] October 13, 2023 11:11 AM [facility] 10-10-2023 Note HNO ID: [id number] Author: Shakir Ji MD Service: General Surgery [...] Surgery PGY-2 N[facility] Crocker (General Surgery) pager: [phone] Between 6p-6a or Sat/Sun, please page general surgery funeral home location manager [phone] On exam: BP 139/56 Pulse 69 Temp [...] 0659 10/10/23 07 - 10/11/23 0659 Shift 6714-5778 9740-7013 9247-1473 24 Hour Total 7373-6382 0030-7078 2364-0865 24 Hour Total INTAKE PO 725 900 4953 PO 744 605 3445 IV 950 950 Volume (mL) (lactated ringers iv infusion) 950 950 Shift Total 1191 770 1783 OUTPUT Urine 850 631 536 4910 Void (ml) 550 020 180 3760 Output ([REMOVED] Indwelling Urinary Catheter 10/08/23 1736 Greco 16 Fr 10/09/23 0739) 300 300 Tubes 392 50 40 482 Drain/Tube Output (Drain/Tube 10/08/23 1833 Eliazar Steve Left Lower Breast Drain #1) 0 0 0 0 Drain/Tube Output (Drain/Tube 10/08/23 1833 Eliazar Steve Left Lateral;Lower Breast Drain #2) 392 50 40 482 Shift Total 1242 957 598 9529 Weight (kg) Current Medications: Current Facility-Administered Medications [...] to proceed with today?s plan of care. [facility] 10-09-2023 Note HNO ID: [id number] Author: Paulette Jade MD Service: General Surgery [...] Paulette Jade MD General Surgery Resident, PGY-1 [facility] 10-09-2023 Note HNO ID: [id number] Author: Brice Rivas MD Service: General Surgery [...] 09, 2023 TIME: 8:51 AM PAGER/CONTACT #: [phone] ETX#[phone] [facility] 10-09-2023 Note HNO ID: [id number] Author: Shakir Ji MD Service: General Surgery [...] Dr. John Ji MD General Surgery PGY-2 [facility] (General Surgery) pager: [phone] Between 6p-6a or Sat/Sun, please page general surgery funeral home location manager [phone] On exam: BP (!) 122/47 Pulse 80 [...] 0659 10/09/23 07 - 10/10/23 0659 Shift 7859-5123 8862-6703 6744-0045 24 Hour Total 0043-6627 6016-5322 7486-3946 24 Hour Total INTAKE IV 8529 943 2653 950 950 Volume (mL) (lactated ringers 1,000 [...] 1050 2150 950 950 OUTPUT Urine 200 5697 492 8091 300 300 Void (ml) 200 200 OR Urine Output 600 600 Output ([REMOVED] Indwelling Urinary Catheter 10/08/23 1736 Greco 16 Fr 10/09/23 0739) 622 187 4174 300 300 Tubes 310 75 385 260 260 Drain/Tube Output ([REMOVED] Drain/Tube 10/07/23 1532 [facility] Cesar Left Lower Breast Drain #1 10/08/23 174) 130 130 Drain/Tube Output ([REMOVED] Drain/Tube 10/07/23 1532 [facility] Cesar Left Breast Drain #2 10/08/23 174) 180 180 Drain/Tube Output (Drain/Tube 10/08/23 183 Eliazar Steve Left Lower Breast Drain #1) 15 15 0 0 Drain/Tube Output (Drain/Tube 10/08/23 1833 Eliazar Steve Left Lateral;Lower Breast Drain #2) 60 60 260 260 Blood 50 50 Estimated Blood loss 50 50 Shift Total 510 7198 782 6979 560 560 Weight (kg) Current Medications: Current [...] with the multidisc (more content not included)... [facility] 10-08-2023 Note HNO ID: [id number] Author: Janie Castro APRN.CONSTRUCTION ENGINEERING MANAGER Service: Anesthesiology Author Type: Nurse Vp Cardiovascular Type: Anesthesia Procedure Notes Filed: 10/08/2023 5:47 [...] Imaging Guidance Used: No SIGNATURE: Janie Floyd APRN.CONSTRUCTION ENGINEERING MANAGER PATIENT NAME: Ramona Villegas DATE: October 08, 2023 TIME: 5:47 PM CSN: [id number] [facility] 10-08-2023 Note HNO ID: [id number] Author: Janie Castro APRN.CRNA Service: Anesthesiology Author Type: Nurse Vp Cardiovascular Type: Anesthesia Procedure Notes Filed: 10/08/2023 5:47 PM Note Text: ANESTHESIOLOGY PROCEDURE NOTE Airway General Information Procedure Start Time/Medication Administration: 10/08/2023 5:35 PM Patient location during procedure: OR Staffing CONSTRUCTION ENGINEERING MANAGER: Janie Castro APRN.CONSTRUCTION ENGINEERING MANAGER Performed by: ALIYA Indications and Patient Condition [...] 1 Airway not difficult SIGNATURE: Janie Floyd APRN.CONSTRUCTION ENGINEERING MANAGER PATIENT NAME: Ramona Villegas DATE: October 08, 2023 TIME: 5:46 PM CSN: [id number] [facility] 10-08-2023 Note HNO ID: [id number] Author: Harper Lopez DO Service: General Surgery [...] pt symptomatic. Harper Lopez DO Breast Surgeon [facility] 10-08-2023 Note HNO ID: [id number] Author: Brice Rivas MD Service: General Surgery [...] for take-back to OR Brice Rivas MD [facility] 10-08-2023 Note Education (BELEN) RAMONA VILLEGAS ([id number]) 1960 F Date Time Provider Department 10/08/23 [...] Encounter Status:Closed by EMY BURKETT on 10/08/23 [facility] 10-08-2023 Note HNO ID: [id number] Author: Emy Burkett RN Service: ? Author [...] for post-op follow-up assessment. Emy Burkett RN [facility] 10-08-2023 Note HNO ID: [id number] Author: Raya Sosa MD Service: General Surgery [...] , PT , INR in the last [id number] hours. Cardiac Enzymes Intake and Output: Date 10/07/23 07 - 10/08/23 0659 10/08/23 07 - 10/09/23 0659 Shift 8183-5229 4899-7491 9229-1401 24 Hour Total 7681-1763 0148-2361 8181-2715 24 Hour Total INTAKE IV 210 1000 [...] 310 310 Drain/Tube Output (Drain/Tube 10/07/23 1532 [facility] Cesar Left Lower Breast Drain #1) 190 70 260 130 130 Drain/Tube Output (Drain/Tube 10/07/23 [facility]2 [facility] Cesar Left Breast Drain #2) 115 [...] to proceed with today?s plan of care. [facility] 10-08-2023 Note HNO ID: [id number] Author: Chintan Emery MD Service: General Surgery [...] during weekdays: [facility] (Trauma, General Surgery): [phone] [facility] (Bariatrics, HPB) : [phone] [facility]: [phone] [facility]: [phone] [facility]: [phone] For team paging after 6PM or on weekend / holidays: [phone] [facility] 10-07-2023 Note HNO ID: [id number] Author: Digna Noel APRN.CONSTRUCTION ENGINEERING MANAGER Service: Nursing Author Type: Nurse Vp Cardiovascular Type: Anesthesia Procedure Notes Filed: 10/07/2023 2:34 PM Note Text: ANESTHESIOLOGY PROCEDURE NOTE Airway General Information Procedure Start Time/Medication Administration: 10/07/2023 1:57 PM Patient location during procedure: OR Patient identity confirmed: arm band and care steam conditioner filling Staffing Anesthesiologist: Sarah Jameson MD CONSTRUCTION ENGINEERING MANAGER: Digna Noel APRN.CONSTRUCTION ENGINEERING MANAGER Performed by: CONSTRUCTION ENGINEERING MANAGER Indications and Patient Condition Indications for airway [...] Dentition same as preop SIGNATURE: Digna Noel APRN.CONSTRUCTION ENGINEERING MANAGER PATIENT NAME: Ramona Villegas DATE: October 07, 2023 TIME: 2:32 PM CSN: [id number] [facility] 10-07-2023 Note HNO ID: [id number] Author: Michael Mosley [employer] Service: Nuclear Medicine Author Type: Leather Whitener Type: Progress Notes Filed: 10/07/2023 2:11 PM [...] [email or web address]%20Pro tection %20-%20Diagnostic%20Nuclear%20Medi cine%20Procedures.pdf SIGNATURE: Michael Mosley [employer] PATIENT NAME: Ramona Villegas DATE: October 07, 2023 TIME: 2:09 PM PAGER/CONTACT #: [facility] 10-07-2023 Note Education (GENSF) RAMONA VILLEGAS ([id number]) 1960 F Date Time Provider Department 10/07/23 [...] Encounter Status:Closed by EMY BURKETT on 10/07/23 [facility] 10-07-2023 Note HNO ID: [id number] Author: Emy Burkett, RN Service: ? Author [...] and emotional support needs. Emy Burkett RN [facility] 09-30-2023 Note [facility] RAM[facility] VILLEG[facility] ([id number]) 1960 F Date Time Provider Department 09/30/23 SANAM ELLER [facility] Reason for Visit: Patient Education [91] Cmt: [...] Encounter Status:Closed by SANAM ELLER on 09/30/23 [facility] 09-30-2023 Nurse Note AMBULATORY PATIENT EDUCATION [...] Sanam Eller LPN In Department: [facility] Time spent on patient education: 20 minutes. documented in this encounter [facility] 09-20-2023 History and physical note HISTORY [...] large neck Non-male patient STOP-Bang Score: 7 [id number] Score: Age: <65 Sex: female CHF history: No Hypertension history: Yes Stroke/TIA/thromboembolism history: No Vascular disease history: No Diabetes history: No [id number] Score: 2 ARISCAT Score: Age: 51-80 Preoperative [...] and consent discussed: yes. Patient / Responsible Libertarian agrees to proceed: yes Patient / Surrogate [...] 09/16/2023, Dr. Lopez HISTORY of PRESENT ILLNESS: Rmaona Villegas is a 63 year old female who I initially saw in the office 08/27/23 with a LEFT breast 2.5 cm x 2.4 cm x 1.5 cm mass @ 1:00, [address] appear normal. ER+KS+HER2- [id number] RIGHT breast cluster of calcifications upper inner [...] analgesics as needed). Negative for: cerebral palsy, CLEANER AND PRESSER tumor, multiple sclerosis, Parkinson's disease, peripheral neuropathy, [...] pain, CHF, congenital heart defect, DVT/PE, recent LA, murmur/valvular heart disease, PVD, open heart surgery and valve surgery. GI: No history of GI symptoms or problems. No history of esophageal varices, recent ascites, or ETOH greater than 2 drinks per day. : Positive for: nephrolithiasis (hx stones, s/p lithotripsy). Negative for: urinary incontinence, renal failure and urinary tract infection. CRIME SCENE ANALYST: Negative for abnormal vaginal bleeding, abnormal vaginal [...] Prior to Admission medications as of 09/20/23 3925 Medication Sig Last Dose Taking rosuvastatin (CRESTOR) [...] or any previous visit (from the past 77736 hour(s)). Prepared for Surgery: optimally prepared for [...] PM PAGER/CONTACT #: documented in this encounter [facility] 09-20-2023 Instructions Keyanna Rmairez APRN.CNP - 09/20/2023 2:15 PM EST PATIENT PREOPERATIVE INSTRUCTIONS Harper Lopez DO has scheduled you for your procedure at this surgery center: [facility]: [phone] --[id number] [place] [address]. Please check in on the 1st floor [...] Procedures: - YOU MUST HAVE A RESPONSIBLE HAIR MIXER TAKE YOU HOME. A BRACELET FORMER OR DBA DEVELOPER CANNOT BE MADE A RESPONSIBLE HAIR MIXER. - We recommend that a responsible person [...] Advance Directive, please fax a copy to [phone] or email to for it to be [...] Keyanna Ramirez APRN.CNP documented in this encounter [facility] 09-20-2023 Note HNO ID: [id number] Author: Andrew Lopez, DO Service: ? Author [...] -Invasive ductal carcinoma with lobular features, provisional Enoree grade 1-2 (of 3), measuring almost 12 mm in this sampling. Estrogen Receptor (ER) Positive 91-100 % Stain intensity: moderate to strong Progesterone Receptor (KS) Positive 51-60 % Stain intensity: moderate to [...] daily at bedti (more content not included)... [facility] 09-20-2023 Note HNO ID: [id number] Author: Jacoby Guevara MD, MD Service: ? Author Type: Physician Type: Progress Notes Filed: 09/21/2023 2:35 PM Note Text: Radiation Oncology - New Patient/Consult Note PATIENT NAME: Ramona Villegas PATIENT REQUESTING PROVIDER: Dr. Harper Lopez DIAGNOSIS: Stage IB, cT2 cN0, grade 1-2 invasive ductal carcinoma of the left breast. It's ER positive (91-100%, moderate to strong), KS positive (51-60%, moderate to strong) and Her2 [...] It's ER positive (91-100%, moderate to strong), KS positive (51-60%, moderate to strong) and Her2 [...] ZEYNEP (obstructive sleep apnea) 11/15/2013 [facility] Overweight(278.02) Post-menopausal Prior radiation therapy, collagen vascular disease, or inflammatory bowel disease: No Any implanted or external electric devices? No status: Post-menopausal. PAST SURGICAL HISTORY Procedure Laterality (more content not included)... [facility] 09-20-2023 Nurse Note Radiation Therapy - Nursing Note (Consult) PATIENT NAME: Ramona Villegas PATIENT September 20, 2023 [facility] FACILITY/LOCATION: [place] Chief Complaint: consult Reason for visit: Consult. Referring physician: Internal provider Dr Lopez Subjective Data: no complaints Additional Data Do you want to see a Magnetic Grinder Operator? No Are you interested in information about fertility? No Status: Post-menopausal Stress Scale: On a scale of 0 to 10, what number best describes how much distress you have experienced in the past week?(0 being no distress and 10 being extreme distress) 1 Social work notified: no SIGNED by: Jacquelin Moseley RN documented in this encounter [facility] 09-20-2023 History of Present illness Narrative Radiation Oncology - New Patient/Consult Note PATIENT NAME: Ramona Villegas PATIENT REQUESTING PROVIDER: Dr. Harper Lopez DIAGNOSIS: Stage IB, cT2 cN0, grade 1-2 invasive ductal carcinoma of the left breast. It's ER positive (91-100%, moderate to strong), KS positive (51-60%, moderate to strong) and Her2 [...] It's ER positive (91-100%, moderate to strong), KS positive (51-60%, moderate to strong) and Her2 [...] Hypertension ZEYNEP (obstructive sleep apnea) 11/15/2013 DME [facility] for AutoPAP Overweight(278.02) Post-menopausal Prior radiation therapy, [...] It's ER positive (91-100%, moderate to strong), KS positive (51-60%, moderate to strong) and Her2 [...] by: Jacoby Guevara MD cc: Ted Monroe [address] [place] [address] Harper Lopez [id number] [address] [facility] [address] documented in this encounter [facility] 09-17-2023 Miscellaneous Notes Spoke to patient, confirmed her surgery date and appointments related to her procedure with Dr. Lopez on 10/07 . documented in this encounter [facility] 09-16-2023 Miscellaneous Notes PT calling to inform she would like to proceed with a Mastectomy with the tentative date given of 10/07. She will cancel her biopsy appt on October 20 . Sanam Eller LPN documented in this encounter [facility] 09-16-2023 Note HNO ID: [id number] Author: Harper Lopez, DO Service: ? Author [...] 1:00, [address] appear normal. ER+KS+HER2- [id number] RIGHT breast cluster of calcifications upper inner aspect, posterior depth, stereo bx recommended - performed on 09/09/23, benign and concordant - 6 month MMG recommended to demonstrate stability Breast MRI was performed yesterday Patient is here to review the findings and to discuss her surgical options. Presents with her son IMAGIN09/09/23 Correlation is made to exams dated: 08/03/2023 ultrasound and 08/03/2023 mammogram - [facility]. A stereotactic guided biopsy was performed for [...] location, twelve specimens were obtained using the Mashable system. The patient received additional local anesthetic [...] to exams dated: 09/09/2023 stereotactic biopsy - [facility], 08/11/2023 mammogram, 08/03/2023 ultrasound, 08/03/2023 mammogram, 07/02/2023 mammogram, and 06/12/2022 mammogram - [facility]. MRI images were obtained with a dedicated breast coil. TECHNIQUE: Axial STIR and axial T1 weighted imaging was carried out follow by axial T1- with fat saturation imaging both before and after IV administration of 20 ml of Dotarem. Subsequently, complex volumetric analysis requiring post processing performed using a semi-automated software Diffonacad, on an independent workstation by the physician, [...] and slightly medi (more content not included)... [facility] 09-16-2023 History of Present illness Narrative REASON FOR TODAY'S VISIT: Patient presents with: Established Patient: regroup HISTORY of PRESENT ILLNESS: Ramona Villegas is a 63 year old female who I initially saw in the office 08/27/23 with a LEFT breast 2.5 cm x 2.4 cm x 1.5 cm mass @ 1:00, [address] appear normal. ER+KS+HER2- [id number] RIGHT breast cluster of calcifications upper inner aspect, posterior depth, stereo bx recommended - performed on 09/09/23, benign and concordant - 6 month MMG recommended to demonstrate stability Breast MRI was performed yesterday Patient is here to review the findings and to discuss her surgical options. Presents with her son IMAGIN09/09/23 Correlation is made to exams dated: 08/03/2023 ultrasound and 08/03/2023 mammogram - [facility]. A stereotactic guided biopsy was performed for [...] location, twelve specimens were obtained using the Mashable system. The patient received additional local anesthetic [...] to exams dated: 09/09/2023 stereotactic biopsy - [facility], 08/11/2023 mammogram, 08/03/2023 ultrasound, 08/03/2023 mammogram, 07/02/2023 mammogram, and 06/12/2022 mammogram - [facility]. MRI images were obtained with a dedicated breast coil. TECHNIQUE: Axial STIR and axial T1 weighted imaging was carried out follow by axial T1- with fat saturation imaging both before and after IV administration of 20 ml of Dotarem. Subsequently, complex volumetric analysis requiring post processing performed using a semi-automated software Diffonacad, on an independent workstation by the physician, [...] bx has been recommended. LN appear normal. ER+KS+HER2- [id number] PLAN: We reviewed the imaging and recommendation [...] 09/20/2023 9:30 AM Jacoby Guevara MD, RADTWS [facility] 09/20/2023 11:10 AM Andrew Lopez DO HEMAWS [facility] 10/20/2023 12:30 PM PROCEDURE MAMMO MAIN RADMN Mn A Bldg 12/28/2023 10:45 AM Dianne Toledo [facility] GMTAUS Mn CA Bldg 12/28/2023 2:40 PM Ted Monroe DO [facility] cc: Ted Monroe [address] [place] [address] documented in this encounter [facility] 09-16-2023 Nurse Note Regroup Did patient [...] Drug use: No documented in this encounter [facility] 09-15-2023 Note HNO ID: [id number] Author: Sandra Bennett RT(R) Service: Radiology Author [...] DATE: September 15, 2023 TIME: 11:09 AM [facility] 09-15-2023 History of Present illness Narrative [...] TIME: 11:09 AM documented in this encounter [facility] 09-13-2023 Miscellaneous Notes Called patient to notify the breast pathology results were benign per Dr. Martinez. Informed patient a 6 month follow up is recommended. Also to continue follow up with Dr. Lopez. Patient agrees with the plan. documented in this encounter [facility] 09-09-2023 Note HNO ID: [id number] Author: Destiney Mckinney, RT(R) Service: ? Author Type: Technologist Type: Patient Education Filed: 09/09/2023 10:31 AM Note Text: Written post procedure instructions were given to the patient. [facility] 09-08-2023 Miscellaneous Notes Spoke with pt [...] Andrew Lopez DO documented in this encounter [facility] 09-06-2023 Miscellaneous Notes Patient has been [...] Last refill: 06/2023 documented in this encounter [facility] 09-06-2023 Miscellaneous Notes Images from the [...] Lopez. Harper Emerson documented in this encounter [facility] 08-27-2023 Note HNO ID: [id number] Author: Sarah Link MD Service: ? Author Type: Physician Type: Progress Notes Filed: 08/27/2023 3:03 PM Note Text: Assessment interrupted by medical provider, unable to complete nursing assessment. Itzel Hanna MA [facility] 08-27-2023 Note HNO ID: [id number] Author: Sarah Link MD Service: ? Author [...] then left breast biopsy on 08/11 Results [facility] by means of stereotactic core biopsy of Left breast on. The pathology report showed Infiltrating Ductal Carcinoma Grade I- II, ER positive, KS positive, HER2 non-amplified. 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 [facility] 08-27-2023 Note HNO ID: [id number] Author: Harper Lopez, DO Service: ? Author Type: Physician Type: Progress Notes Filed: 09/04/2023 5:25 AM Note Text: NEW BREAST CANCER - INITIAL SURGICAL VISIT SERVICE DATE: 08/27/2023 REFERRING PROVIDER: Dr. King Monroe [address] [facility] [address] Consult requested for an opinion regarding the [...] lobular features, Grade I- II, ER positive, KS positive, HER2 non-amplified. 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 [facility] 08-27-2023 History of Present illness Narrative [...] then left breast biopsy on 08/11 Results [facility] by means of stereotactic core biopsy of Left breast on. The pathology report showed Infiltrating Ductal Carcinoma Grade I- II, ER positive, KS positive, HER2 non-amplified. 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 King Monroe [address] [facility] [address] Consult requested for an opinion regarding the [...] lobular features, Grade I- II, ER positive, KS positive, HER2 non-amplified. 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 The breasts are heterogeneously dense, which may [...] mammogram, 06/12/2022 mammogram, and 05/27/2021 mammogram - [facility]. The breasts are heterogeneously dense, which may [...] mammogram, 06/12/2022 mammogram, and 05/27/2021 mammogram - [facility]. Color flow and real-time ultrasound of the [...] Invasive ductal carcinoma with lobular features, provisional Enoree grade 1-2 (of 3), measuring almost 12 mm in this sampling BREAST BIOMARKER Breast Biomarkers RESULTS: Estrogen Receptor (ER) Positive 91-100 % Progesterone Receptor (KS) Positive 51-60 % HER2 (ERBB2) IMMUNOHISTOCHEMISTRY ASSAY Interpretation: NEGATIVE for HER2 (ERBB2) Expression Score: 1+ GENETIC TESTING: discussed that consult to be placed. SOZO LEFT arm 0.9 ASSESSMENT: Ramona Villegas is a 62 year old female with a LEFT breast 2.5 cm x 2.4 cm x 1.5 cm mass @ 1:00, [address] appear normal. ER+KS+HER2- [id number] RIGHT breast cluster of calcifications upper inner [...] further questions or concerns. Harper Lopez DO, [facility] Breast Surgeon [facility] Cc: DO Dr. Jessica Tavera Dr., Dr. documented in this encounter [facility] 08-25-2023 Miscellaneous Notes Tristian, Called patient to offer an appointment with Dr. Lopez on 08/27/2023, patient accepted, scheduled. documented in this encounter [facility] 08-25-2023 Miscellaneous Notes Tristian, Received a [...] results. Thank you documented in this encounter [facility] 08-23-2023 Miscellaneous Notes I see that she is referred to the breast surgeons per preference/ recommendations from Dr. Norton I am familiar with the breast center surgeons and she will have great care Please recommend Ted Monroe DO Images from the original note were not included. Please see pt Feidee message- Ramona Rivera Wstr Famp My Chart [...] help is appreciated. documented in this encounter [facility] 08-20-2023 Note HNO ID: [id number] Author: Corwin Norton MD Service: ? Author [...] her to the breast surgeons up in [place]. [facility] 08-16-2023 Miscellaneous Notes Turned into KEYONNA Lombardo documented in this encounter [facility] 08-13-2023 Note HNO ID: [id number] Author: Jm Mcguire MD Service: ? Author Type: Physician Type: Progress Notes Filed: 08/13/2023 5:27 PM Note Text: Agree with recommendation for stereotactic biopsy of the heterogeneous calcifications in the right breast upper inner aspect posterior depth. An order has been placed. This is not a billable event. [facility] 08-13-2023 History of Present illness Narrative Agree with recommendation for stereotactic biopsy of the heterogeneous calcifications in the right breast upper inner aspect posterior depth. An order has been placed. This is not a billable event. documented in this encounter [facility] 08-13-2023 Note HNO ID: [id number] Author: Corwin Norton MD Service: ? Author [...] tolerated the procedure sterile dressings were applied. [facility] 08-13-2023 History of Present illness Narrative [...] Jessi Adams RN documented in this encounter [facility] 08-11-2023 Note HNO ID: [id number] Author: Halley Queen, Professionali.ruo Mas Con Movil Service: ? Author Type: Leather Whitener Type: Progress Notes Filed: 08/11/2023 1:41 PM [...] DATA: Not applicable SIGNED BY: Halley Queen Aarki August 11, 2023 1:40 PM [facility] 08-11-2023 History of Present illness Narrative [...] DATA: Not applicable SIGNED BY: Halley Queen [employer] Graciela August 11, 2023 1:40 PM documented in this encounter [facility] 08-11-2023 Note HNO ID: [id number] Author: Jessi Adams RN Service: ? Author [...] Visit completed when applicable. Jessi Adams RN [facility] 08-11-2023 Instructions Jessi Adams RN - 08/11/2023 12:23 PM EDT The following instructions are important for you related to your office visit today with the [facility] General Surgeons. Instructions After OFFICE BASED [...] you should contact our office immediately @ [phone] and ask to be transferred to the General Surgery department. documented in this encounter [facility] 08-05-2023 Miscellaneous Notes Patient was scheduled with general surgery for evaluation of abnormal mammogram. Stanley Prescott PA-C documented in this encounter [facility] 08-03-2023 Note HNO ID: [id number] Author: Corwin Norton MD Service: ? Author [...] Hypercholesteraemia Hypertension ZEYNEP (obstructive sleep apnea) 11/15/2013 [facility] for AutoPAP Overweight(278.02) Post-menopausal PAST SURGICAL [...] by the nurse (more content not included)... [facility] 08-03-2023 Note HNO ID: [id number] Author: Veronica Ulloa RDMS Service: ? Author Type: Petroleum Engineer Type: Progress Notes Filed: 08/03/2023 1:26 PM [...] RDMS RVT August 03, 2023 1:25 PM [facility] 08-03-2023 Note HNO ID: [id number] Author: Darshana White Professionali.ruo Graciela Service: ? Author Type: Leather Whitener Type: Progress Notes Filed: 08/03/2023 9:45 AM [...] Eddie Powers August 03, 2023 8:54 AM [facility] 08-03-2023 History of Present illness Narrative [...] 2023 1:25 PM documented in this encounter [facility] 08-03-2023 History of Present illness Narrative [...] 2023 8:54 AM documented in this encounter [facility] 07-22-2023 Miscellaneous Notes The following approved medication requests have been transmitted electronically. Requested Prescriptions Signed Prescriptions Disp Refills hydroCHLOROthiazide 25 mg tablet 90 tablet 1 Sig: take 1 tablet daily Authorizing Provider: SHAR BOLANOS MD Patient last visit 12/03/2022 Follow up appointment scheduled 12/28/2023 Xena Dawson Ma documented in this encounter [facility] 07-02-2023 Note HNO ID: [id number] Author: Darshana White Mammo Tech Service: ? Author Type: Leather Whitener Type: Progress Notes Filed: 07/02/2023 8:27 AM [...] Eddie Powers July 02, 2023 8:09 AM [facility] 07-02-2023 Miscellaneous Notes Patient active MyChart. Patient notified via [email or web address] message to the previous Proxinot message. Kimberly Rosas MA Called and left a detailed voicemail notifying patient of providers message. Hospital phone number was left for patient to call and either set up exam with Dr Monroe or get a referral to CRIME SCENE ANALYST. Padmini Guidry, RN I am okay with helping manage her Pap/pelvic exams or she can be seen by CRIME SCENE ANALYST, whichever she is more comfortable. Not sure when she is due for her next pap etc Ted Monroe DO Due to [place] CRIME SCENE ANALYST closing., patient is transferring CRIME SCENE ANALYST records to [facility]. Is patient to establish with a [facility] CRIME SCENE ANALYST or okay to follow PCP? Please advise & place referral if needed to establish with specialty. Kimberly Rosas MA documented in this encounter [facility] 07-02-2023 History of Present illness Narrative [...] 2023 8:09 AM documented in this encounter [facility] 06-23-2023 Miscellaneous Notes Patient phones requesting refills as follows: Requested Prescriptions Pending Prescriptions Disp Refills rosuvastatin (CRESTOR) 10 mg tablet 90 tablet 0 Sig: Take 1 tablet by mouth daily at bedtime. BAHMAN-2/23/23 Labs-11/14/22 NOV-12/28/23 Please review and advise. Sherron Villegas LPN documented in this encounter [facility] 05-25-2023 Miscellaneous Notes Mammogram ordered. Danilo order pended Mignon Lombardo documented in this encounter [facility] 03-11-2023 Miscellaneous Notes Bahman--12/03/22 Nov--nothing scheduled Last refill--12/03/22 90 with 0 refills Last refill--11/14/22 documented in this encounter [facility] 01-27-2023 Miscellaneous Notes Resent to [facility]. Amparo Robledo APRN.PODIATRIC FOOT AND ANKLE SPECIALIST Patient phones requesting refills as follows: Requested Prescriptions Pending Prescriptions Disp Refills Syringe with Needle, Safety 3 mL 23 gauge x 1 12 Each 0 Si Each once every month. With B-12 injections Luerlock BAHMAN-12/03/22 Labs-11/17/22 NOV-none Please review and advise. Sherron Villegas LPN documented in this encounter [facility] 01-25-2023 Miscellaneous Notes Patient phones requesting [...] mg 30 qty 30-day supply Rx Number [id number]# [id number] Prescription details Prescriber: Amparo Greene New Fill Canceled Alert Icon Your prescriber is requesting that you call their office before we fill your HYDROCHLOROTHIAZIDE TABS 25MG prescription. Please contact your prescriber to discuss and ask them to e - prescrib documented in this encounter [facility] 01-01-2023 Miscellaneous Notes Faxed order, office notes, demographics, and sleep study to: DME name: [facility] fax: [phone] DME ph: documented in this encounter [facility] 12-31-2022 Miscellaneous Notes Orders faxed to [facility] in [place] via [facility]. Cassidy Gordon LPN Order completed per request. Order pended for Auto Pap. Please review and advise. Thank you. NORBERT Baldwin TC to patient with results, verbalized understanding, states she has been using [facility] in [place] and would like orders sent there. fax #[phone] Cassidy Gordon LPN ----- Message from Jefry [...] Jefry Bertrand MD documented in this encounter [facility] 12-30-2022 Miscellaneous Notes TC to pt [...] Jefry Bertrand MD documented in this encounter [facility] 12-21-2022 Note HNO ID: [id number] Author: Naima Henriquez Service: ? Author Type: ? Type: Progress Notes Filed: 12/21/2022 6:37 AM Note Text: Sleep Study Check-In Documentation Date: December 21, 2022 Name: Ramona Villegas Patient was accompanied by Self. Location: [place] Latex allergy: No Tape allergy: No Current medications were reviewed with the patient:Yes Sleep aid taken by patient for the sleep study: Marley of sleep aid: Not Applicable Procedure was explained to the patient and all questions were answered. PAP treatment discussed and shown to patient: Yes If PAP used enter mask info: Mask Name Mirage Quattro Air Make Resmed MaskTypeFull Face Mask SizeSmall Chin Sharp Used No ------- Knowledge Program (KP): KP was not completed in [facility] by patient and accepted Study type: PAP titration Adverse Event: No (If yes create a new abstract) Comments: Patient was advised to follow up with their ordering provider regarding test results Naima Fong-Ankit [facility] 12-21-2022 History of Present illness Narrative Sleep Study Check-In Documentation Date: December 21, 2022 Name: Ramona Villegas Patient was accompanied by Self. Location: [place] Latex allergy: No Tape allergy: No Current medications were reviewed with the patient:Yes Sleep aid taken by patient for the sleep study: Marley of sleep aid: Not Applicable Procedure was explained to the patient and all questions were answered. PAP treatment discussed and shown to patient: Yes If PAP used enter mask info: Mask Name Mirage Quattro Air Make Resmed MaskTypeFull Face Mask SizeSmall Chin Sharp Used No Knowledge Program (KP): KP was not completed in [facility] by patient and accepted Study type: PAP titration Adverse Event: No (If yes create a new abstract) Comments: Patient was advised to follow up with their ordering provider regarding test results Naima Perezummie Poly-T documented in this encounter [facility] 12-10-2022 Miscellaneous Notes The following approved [...] Harper Archibald RN documented in this encounter [facility] 12-03-2022 Note HNO ID: [id number] Author: Amparo Robledo APRN.ELIANA Service: ? Author [...] Hypercholesteraemia Hypertension ZEYNEP (obstructive sleep apnea) 11/15/2013 [facility] for AutoPAP Overweight(278.02) Post-menopausal Previous Surgical [...] AutoPAP 10-20 cmH2O (more content not included)... [facility] 11-13-2022 Miscellaneous Notes Patient active MyChart. Patient notified via [employer] message. Kimberly Rosas MA Will proceed with in lab titration. Jefry Bertrand MD documented in this encounter [facility] 11-09-2022 Miscellaneous Notes FLUoxetine (PROZAC) 20 mg capsule [Amparo Robledo] Patient Comment: Prescription runs out the same time as sceduled appointment, but I worry about a break while waiting for the mail. Can I have a stop-gap supply prescribed? documented in this encounter [facility] 11-02-2022 History of Present illness Narrative Sleep Study Check-In Documentation Date: November 02, 2022 Name: Ramona Villegas Comments: HST was returned in working order with all sleep questionnaires Diana Liz PSS Nomad# [id number] Mail out date:10/26/22 FedEx Shipping #:[id number] [employer] Return #:[id number] October 26, 2022 An order has been received for Home Sleep Apnea Test (HSAT) from [facility] Staff/Fabricator Special [employer] Staff Orders. Visit prep complete - Please refer to the sleep study order (under procedures tab) for protocol details and special instructions. The sleep study is scheduled for 10/27/22. Insurance: Payor: [place] [employer] CHOICE PLAN / Plan: [place] [employer] CONNECT GENERIC / Product Type: PPO / Payer/Plan Subscr Sex Relation Sub. Ins. ID Effective Group Num 1. [place] [employer] RAMONA WINN 1960 Female Self [id number] 10/11/21 [address], [facility] [address] Maddi Fleming documented in this encounter [facility] 10-19-2022 Miscellaneous Notes Please clarify as to why this order was not completed through the [facility] sleep dept. Jefry Bertrand MD Clarified with Christi Moreland, needs new HSAT order. Pended new order. Please file. Kimberly Rosas MA documented in this encounter [facility] 10-15-2022 Miscellaneous Notes Pt notified of [...] Jeannie Turk LPN documented in this encounter [facility] 10-15-2022 Miscellaneous Notes Another phone note [...] Sherron Villegas LPN documented in this encounter [facility] 06-12-2022 Miscellaneous Notes June 12, 2022 PID: [id number] Ramona Villegas [address] [place] [address] Dear Ms. Villegas, We are pleased to [...] report will be kept on file at [facility] as part of your permanent medical record and are available for your continuing care. Thank you for allowing us to help in meeting your health care needs. Sincerely, Dr. Aguilar Interpreting Radiologist [facility] (Normal over 40) documented in this encounter [facility] 05-25-2022 Miscellaneous Notes The following approved [...] once daily. Authorizing Provider: AMPARO DE LEON APRN.PODIATRIC FOOT AND ANKLE SPECIALIST Last Office Visit: 06/04/2021 Future Office Visit: Non3 Last Medication Refill: Cholecalciferol 06/04/2021 90 cap 3 refill Metoprolol 06/04/2021 90 cap 3 refill Date of Last Labs: 05/31/2021 documented in this encounter [facility] 05-04-2022 Miscellaneous Notes Patient phones requesting refills as follows: Pending Prescriptions Disp Refills CYANOCOBALAMIN (VIT B-12) 1,000 MCG/ML INJECTION SOLUTION 3 mL 3 Sig: Inject 1 mL intramuscularly once every month. BOGDAN: No BAHMAN-06/04/21 NOV-05/22/21 NOV-none med filled 07/08/21 Please review and advise. Sherron Villegas LPN documented in this encounter [facility] 03-30-2022 Miscellaneous Notes Please call patient - colonoscopy was normal - I recommend repeat colonoscopy in 10 years - her last two were normal. Please change colonoscopy screening from 5 to 10 years Beth Maguire APRN.PODIATRIC FOOT AND ANKLE SPECIALIST documented in this encounter [facility] 03-25-2022 Instructions Madonna Romero MD - [...] sleep nurse practitioner. documented in this encounter [facility] 03-24-2022 Note HNO ID: [id number] Author: Jefry Bertrand Jr., MD Service: ? Author Type: Physician Type: Progress Notes Filed: 04/06/2022 11:45 AM Note Text: [facility] New Patient Evaluation PATIENT NAME: Ramona Villegas DATE OF SERVICE: March 24, 2022 CONSULTING PROVIDER: Ted Monroe [address] [facility] [address] REASON FOR CONSULT: Ted Monroe sends the [...] refer to records. The patient moved from [place] to [place]. The patient current machine was both in 2013, and her machine from her insurance was broken in 2013 and she bought a new machine [id number]. chine CPAP information: Machine name : Pankaj DME company: [employer] [place] Mask: Fullface mask The patient compliance report [...] - ZEYNEP (obstructive sleep apnea) 11/15/2013 [facility] for AutoPAP - Overweight(278.02) - Post-menopausal PAST [...] Right (more content not included)... [facility] 03-24-2022 History of Present illness Narrative Images from the original note were not included. [facility] New Patient Evaluation PATIENT NAME: Ramona Villegas DATE OF SERVICE: March 24, 2022 CONSULTING PROVIDER: Ted Monroe [address] [facility] [address] REASON FOR CONSULT: Ted Monroe sends the [...] refer to records. The patient moved from [place] to [place]. The patient current machine was both in 2013, and her machine from her insurance was broken in 2013 and she bought a new machine [id number]. chine CPAP information: Machine name : Sarika DME company: [employer] [place] Mask: Fullface mask The patient compliance [...] Dr. Bertrand. Madonna Romero MD Sleep Fellow [facility] STAFF PHYSICIAN NOTE OF PERSONAL INVOLVEMENT IN [...] visit: Patient and Physician and Fellow via [employer]. Consent for this visit received from patient. [...] which included preparing to see the patient, xzha-he-apde patient care, completing clinical documentation, obtaining and/or reviewing separately obtained history, performing a medically appropriate examination, counseling and educating the patient/family/caregiver, ordering medications, tests, or procedures, communicating with other HCPs (not separately reported) and communicating results to the patient/family/caregiver. documented in this encounter [facility] 03-23-2022 Miscellaneous Notes We have yet [...] Fortino Parekh CMA documented in this encounter [facility] 03-23-2022 Nurse Note Patient passing flatus [...] Roselyn Miranda RN documented in this encounter [facility] 03-23-2022 History and physical note NEW [...] with more than 50% of the total exri-le-bjei time of the visit in counseling / coordination of care. I have confirmed and edited as necessary, the PFSH and ROS obtained by others. Beth Maguire APRN.PODIATRIC FOOT AND ANKLE SPECIALIST UPDATED HISTORY AND PHYSICAL EXAMINATION SERVICE DATE: [...] TIME: 10:41 AM documented in this encounter [facility] 03-23-2022 Miscellaneous Notes NEW VIRTUAL VISIT [...] Hypercholesteraemia Hypertension ZEYNEP (obstructive sleep apnea) 11/15/2013 [facility] Overweight(278.02) Post-menopausal PAST SURGICAL HISTORY PAST SURGICAL HISTORY Procedure Laterality Date COLONOSCOP W/ OR W/O [facility] SPEC 09/04/2013 Colonoscopy- 3 small polyps COLONOSCOPY [...] with more than 50% of the total wrkd-bn-fgrk time of the visit in counseling / coordination of care. I have confirmed and edited as necessary, the PFSH and ROS obtained by others. Beth Maguire APRN.PODIATRIC FOOT AND ANKLE SPECIALIST UPDATED HISTORY AND PHYSICAL EXAMINATION SERVICE DATE: [...] TIME: 10:40 AM documented in this encounter [facility] 02-13-2022 Miscellaneous Notes Patient is scheduled at [facility] on 03/23/[address] Norton for a colonoscopy. DX: Screening for colon cancer [Z12.11 (ICD-10-CM)] Verbal and written instructions given. documented in this encounter [facility] 02-11-2022 History of Present illness Narrative [...] with more than 50% of the total dqui-cp-nanh time of the visit in counseling / coordination of care. I have confirmed and edited as necessary, the PFSH and ROS obtained by others. Beth Maguire APRN.CNP February 11, 2022 11:21 AM documented in this encounter [facility] 02-11-2022 Instructions Beth Maguire APRN.CNP - [...] If you do not have a responsible dedicated intermodal truck driver (family member or friend) with [...] exam. 3 09/2019 documented in this encounter [facility] Screening for colon cancer Special screening for malignant neoplasms, colon [facility] Diagnosis ZEYNEP (obstructive sleep apnea)- Primary Obstructive sleep apnea (adult) (pediatric) Sleep deprivation Problems related to lack of adequate sleep Behaviorally induced insufficient sleep syndrome Persistent disorder of initiating or maintaining wakefulness [facility] Diagnosis Vitamin B 12 deficiency Other B-complex deficiencies [facility] Diagnosis Essential hypertension Unspecified essential hypertension Vitamin D deficiency Unspecified vitamin D deficiency [facility] Diagnosis Vitamin B 12 deficiency Other B-complex deficiencies [facility] Diagnosis Vitamin D deficiency- Primary Unspecified vitamin D deficiency Essential hypertension Unspecified essential hypertension Wellness examination [facility] Diagnosis ZEYNEP (obstructive sleep apnea)- Primary Obstructive sleep apnea (adult) (pediatric) [facility] Diagnosis Anxiety Anxiety state, unspecified [facility] Diagnosis Obstructive sleep apnea (adult) (pediatric)- Primary [facility] Diagnosis Vitamin B 12 deficiency Other B-complex deficiencies [facility] Diagnosis ZEYNEP (obstructive sleep apnea)- Primary Obstructive sleep apnea (adult) (pediatric) [facility] Diagnosis Vitamin B 12 deficiency Other B-complex deficiencies [facility] Diagnosis Essential hypertension Unspecified essential hypertension [facility] Diagnosis Hyperlipidemia, mixed Mixed hyperlipidemia [facility] Diagnosis Encounter for screening mammogram for malignant neoplasm of breast- Primary Other screening mammogram [facility] Diagnosis Hyperlipidemia, mixed Mixed hyperlipidemia documented in this encounter [facility] note* Diagnosis Essential hypertension Unspecified essential hypertension documented in this encounter [facility] note* Diagnosis Abnormal mammogram- Primary Abnormal mammogram, unspecified Mammographic microcalcification found on diagnostic imaging of breast Mammographic microcalcification documented in this encounter [facility] note* Diagnosis Abnormal finding on radiological examination of breast- Primary Other (abnormal) findings on radiological examination of breast documented in this encounter [facility] note* Diagnosis Abnormal mammogram Abnormal mammogram, unspecified documented in this encounter [facility] note* Diagnosis Abnormality of both breasts on screening mammogram documented in this encounter [facility] note* Diagnosis Abnormality of both breasts on screening mammogram [facility] Diagnosis Encounter for screening mammogram for malignant neoplasm of breast Other screening mammogram [facility] Diagnosis Malignant neoplasm of upper-outer quadrant of left breast in female, estrogen receptor positive (HCC)- Primary [facility] Diagnosis Invasive ductal carcinoma of breast, female, left (HCC)- Primary [facility] Diagnosis Malignant neoplasm of upper-outer quadrant of left breast in female, estrogen receptor positive (HCC)- Primary Abnormal mammogram with microcalcification Mammographic microcalcification At risk for lymphedema Other specified conditions influencing health status documented in this encounter [facility] note* Diagnosis Hyperlipidemia, mixed Mixed hyperlipidemia [facility] Diagnosis Invasive ductal carcinoma of breast, female, left (HCC) [facility] Diagnosis Breast disorder- Primary Unspecified breast disorder [facility] Diagnosis Breast disorder- Primary Unspecified breast disorder [facility] Diagnosis Malignant neoplasm of upper-outer quadrant of left breast in female, estrogen receptor positive (HCC)- Primary [facility] Diagnosis Malignant neoplasm of upper-outer quadrant of left breast in female, estrogen receptor positive (HCC)- Primary Malignant neoplasm of upper-outer quadrant of left breast in female, estrogen receptor positive (HCC) [facility] Diagnosis Pre-operative examination- Primary Preoperative examination, [...] receptor positive (HCC) [facility] Diagnosis Malignant neoplasm of upper-outer quadrant of left breast in female, estrogen receptor positive (HCC) Abnormal mammogram with microcalcification Mammographic microcalcification Malignant neoplasm of upper-outer quadrant of left breast in female, estrogen receptor positive (HCC) documented in this encounter [facility] note* Diagnosis Malignant neoplasm of upper-outer quadrant of left breast in female, estrogen receptor positive (HCC) (HCC)- Primary Malignant neoplasm of upper-outer quadrant of left breast in female, estrogen receptor positive (HCC) (HCC) documented in this encounter [facility] for referral (narrative)* Outpatient Procedure (Routine) - Pending Review Specialty Diagnoses / Procedures Referred By Laila bermudez Referred To Contact [facility] Diagnoses Screening for colon cancer Procedures COLONOSCOPY SCREENING COLONOSCOPY FLX DX W/COLLJ SPEC WHEN Beth Gonzalez APRN.CNP [address] [place] [address] [facility] [address] [place] [address] Referral ID Status Reason Start Date Expiration Date Visits Requested Visits Authorized [id number] Pending Review Auto-Generat ed Referral 02/11/2022 02/11/2023 1 1 [facility] for referral (narrative)* Outpatient Procedure (Routine) - Closed Specialty Diagnoses / Procedures Referred By Contac t Referred To Contact [facility] Diagnoses Screening for colon cancer Procedures COLONOSCOPY SCREENING COLONOSCOPY SCREENING COLONOSCOPY FLX DX W/COLLJ SPEC WHEN Beth Gonzalez APRN.PODIATRIC FOOT AND ANKLE SPECIALIST [address] [place] [address] [facility] [address] [place] [address] Referral ID Status Reason Start Date Expiration Date V isits Requested Visits Authorized [id number] Closed Auto-Generate d Referral OON/Self Pay Override 02/11/2022 02/11/2023 1 1 [facility] for referral (narrative)* Diagnostic Procedure Only (Routine) - Authorized Specialty Diagnoses / Procedures Referred By Contac t Referred To Contact [facility] Diagnoses ZEYNEP (obstructive sleep apnea) Procedures HOME SLEEP APNEA TEST (HSAT) SLEEP STD AIRFLOW HRT RATE&O2 SAT EFFORT Jefry Figueroa Jr., MD [address] [place] [phone] [facility] [address] [place] [address] Referral ID Status Reason Start Date Expiration Date Visits Requested Visits Authorized [id number] Authorized Auto-Generat ed Referral 10/11/2021 10/10/2022 1 1 T [facility] for referral (narrative)* Diagnostic Procedure Only (Routine) - Pending Review Specialty Diagnoses / Procedures Referred By Contac t Referred To Contact [facility] Diagnoses ZEYNEP (obstructive sleep apnea) Procedures HOME SLEEP APNEA TEST (HSAT) SLEEP STD AIRFLOW HRT RATE&O2 SAT EFFORT Jefry Figueroa Jr., MD [address] [place] [address] [facility] [address] [place] [address] Referral ID Status Reason Start Date Expiration Date Visits Requested Visits Authorized [id number] Pending Review Auto-Generat ed Referral 10/19/2022 10/19/2023 1 1 [facility] for referral (narrative)* Diagnostic Procedure Only (Routine) - Pending Review Specialty Diagnoses / Procedures Referred By Laila bermudez Referred To Contact [facility] Diagnoses Encounter for screening mammogram for malignant neoplasm of breast Procedures DANILO SCREENING SCREENING MAMMOGRAPHY BI 2-VIEW BREAST INC Stanley Mauricio PA-C [address] [place] [address] [facility] [address] [place] [address] Referral ID Status Reason Start Date Expiration Date Visits Requested Visits Authorized [id number] Pending Review Auto-Generat ed Referral 05/25/2023 06/22/2024 1 1 [facility] for referral (narrative)* Diagnostic Procedure Only (Routine) - Pending Review Specialty Diagnoses / Procedures Referred By Laila bermudez Referred To Contact [facility] Diagnoses Mammographic microcalcification found on diagnostic imaging of breast Procedures DANILO STEREO BX BREAST RIGHT BX BREAST W/DEVICE 1ST [facility] STEREOTACTIC GUID Corwin Norton MD [address] [place] [address] [facility] [address] [place] [address] Referral ID Status Reason Start Date Expiration Date Visits Requested Visits Authorized [id number] Pending Review Auto-Generat ed Referral 08/11/2023 09/09/2024 1 1 * Diagnostic Procedure Only (Routine) - Closed Specialty Diagnoses / Procedures Referred By Laila bermudez Referred To Contact [facility] Diagnoses Abnormal mammogram Procedures DANILO DIAGNOSTIC LEFT DIAGNOSTIC MAMMOGRAPHY COMPUTER-AIDED DETCJ UNI Corwin Norton MD [address] [place] [address] [facility] [address] [place] [address] Referral ID Status Reason Start Date Expiration Date V isits Requested Visits Authorized [id number] Closed Auto-Generate d Referral 08/11/2023 10/10/2023 1 1 [facility] for referral (narrative)* Diagnostic Procedure Only (Routine) - Pending Review Specialty Diagnoses / Procedures Referred By Contac t Referred To Contact [facility] Diagnoses Abnormal finding on radiological examination of breast Procedures DANILO STEREO BX BREAST RIGHT BX BREAST W/DEVICE 1ST [employer] STERE[employer] Jm Duff MD [address] [place] [address] [facility] [address] [place] [phone] Referral ID Status Reason Start Date Expiration Date Visits Requested Visits Authorized [id number] Pending Review Auto-Generat ed Referral 08/13/2023 09/11/2024 1 1 [facility] for referral (narrative)* Diagnostic Procedure Only (Routine) - Closed Specialty Diagnoses / Procedures Referred By Contac t Referred To Contact [facility] Diagnoses Abnormal mammogram Procedures DANILO DIAGNOSTIC LEFT DIAGNOSTIC MAMMOGRAPHY COMPUTER-AIDED DETCJ UNI Corwin Norton MD [address] [place] [address] [facility] [address] [place] [phone] Referral ID Status Reason Start Date Expiration Date V isits Requested Visits Authorized [id number] Closed Auto-Generate d Referral 08/11/2023 10/10/2023 1 1 [facility] for referral (narrative)* Diagnostic Procedure Only (Routine) - Closed Specialty Diagnoses / Procedures Referred By Laila t Referred To Contact [facility] Diagnoses Abnormality of both breasts on screening mammogram Procedures US BREAST LTD LEFT US BREAST UNI REAL TIME WITH IMAGE LIMITED Ted Monroe, [address] [place] [address] [facility] [address] [place] [address] Referral ID Status Reason Start Date Expiration Date V isits Requested Visits Authorized [id number] Closed Auto-Generate d Referral 08/03/2023 10/10/2023 1 1 [facility] for referral (narrative)* Diagnostic Procedure Only (Routine) - Closed Specialty Diagnoses / Procedures Referred By Alethaac t Referred To Contact [facility] Diagnoses Encounter for screening mammogram for malignant neoplasm of breast Procedures DANILO SCREENING SCREENING MAMMOGRAPHY BI 2-VIEW BREAST INC CAD Stanley Prescott PA-C [address] [place] [address] [facility] [address] [place] [address] Referral ID Status Reason Start Date Expiration Date V isits Requested Visits Authorized [id number] Closed Auto-Generate d Referral 07/02/2023 10/10/2023 [address] [facility] for referral (narrative)* Diagnostic Procedure Only (Routine) - Closed Specialty Diagnoses / Procedures Referred By Laila t Referred To Contact [facility] Diagnoses Breast disorder Procedures US BREAST LTD LEFT US BREAST UNI REAL TIME WITH IMAGE LIMITED Dianne Alvarenga MD [address] [place] [address] [facility] [address] [place] [address] Referral ID Status Reason Start Date Expiration Date Visits Re quested Visits Authorized [id number] Closed 09/16/2023 10/10/2023 1 1 [facility] for visit Narrative* Outpatient Procedure (Routine) - Closed Specialty Diagnoses / Procedures Referred By Laila bermudez Referred To Contact [facility] Diagnoses Screening for colon cancer Procedures COLONOSCOPY SCREENING COLONOSCOPY SCREENING COLONOSCOPY FLX DX W/COLLJ SPEC WHEN PFRMD Beth Maguire, SHEELA.PODIATRIC FOOT AND ANKLE SPECIALIST [address] [place] [address] [facility] [address] [place] [address] Referral ID Status Reason Start Date Expiration Date V isits Requested Visits Authorized [id number] Closed Auto-Generate d Referral OON/Self Pay Override 02/11/2022 02/11/2023 1 1 [facility] for visit Narrative* Diagnostic Procedure Only (Routine) - Closed Specialty Diagnoses / Procedures Referred By Laila bermudez Referred To Contact Radiology / RADIO [facility] Diagnoses mammo scrreen order pend Procedures MAMMOGRAM SCREENING Ted Monroe [address] [place] [address] [facility] [address] [place] [address] Referral ID Status Reason Start Date Expiration Date Visits Re quested Visits Authorized [id number] Closed 06/12/2022 08/11/2022 1 1 [facility] for visit Narrative* Diagnostic Procedure Only (Routine) - Closed Specialty Diagnoses / Procedures Referred By Laila t Referred To Contact [facility] Diagnoses Abnormal mammogram Procedures DANILO DIAGNOSTIC LEFT DIAGNOSTIC MAMMOGRAPHY COMPUTER-AIDED DETCJ Corwin Nugent MD [address] [place] [address] [facility] [address] [place] [address] Referral ID Status Reason Start Date Expiration Date V isits Requested Visits Authorized [id number] Closed Auto-Generate d Referral 08/11/2023 10/10/2023 1 1 [facility] for visit Narrative* Diagnostic Procedure Only (Routine) - Closed Specialty Diagnoses / Procedures Referred By Laila t Referred To Contact [facility] Diagnoses Abnormality of both breasts on screening mammogram Procedures DANILO DIAGNOSTIC BILATERAL DIAGNOSTIC MAMMOGRAPHY COMPUTER-AIDED DETCJ BI Ted Monroe L, DO [address] [place] [address] [facility] [address] [place] [address] Referral ID Status Reason Start Date Expiration Date V isits Requested Visits Authorized [id number] Closed Auto-Generate d Referral 08/03/2023 10/10/2023 1 [facility] Procedure Only (Routine) - Closed Specialty Diagnoses / Procedures Referred By Contsveta t Referred To Contact [facility] Diagnoses Encounter for screening mammogram for malignant neoplasm of breast Procedures DANILO SCREENING SCREENING MAMMOGRAPHY BI 2-VIEW BREAST INC CAD Stanley Prescott PA-C [address] [place] [address] [facility] [address] [place] [address] Referral ID Status Reason Start Date Expiration Date V isits Requested Visits Authorized [id number] Closed Auto-Generate d Referral 07/02/2023 10/10/2023 1 1 [facility] Advance Directives Documents on File Type Date Recorded 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 Advance Directive(s) 07/02/2020 12:48 PM Advance Directive(s) 06/28/2020 12:21 PM Advance Directive(s) 11/09/2016 12:42 PM Documents on File Type Date Recorded 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 Advance Directive(s) 03/23/2022 9:24 AM Advance Directive(s) 07/02/2020 12:48 PM Advance Directive(s) 06/28/2020 12:21 PM Advance Directive(s) 11/09/2016 12:42 PM Documents on File Type Date Recorded 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 Advance Directive(s) 03/23/2022 9:24 AM [...] DIFF WORK STATION Maria Victoria Camilo PA-C [address] [place] [phone] [facility] Referral ID Status Reason Start Date Expiration Date Visits Requested Visits Authorized [id number] Pending Review Auto-Generat ed Referral 3 09/25/2024 1 1 Specialty Diagnoses / Procedures Referred By Contac t Referred To Contact [facility] Diagnoses Invasive ductal carcinoma of breast, female, left (HCC) Procedures MRI BREAST WO/W IVCON BILATERAL MRI BREAST WITHOUT&WITH CONTRAST W/CAD BILATERAL Maria Victoria Camilo PA-C [address] [phone] [facility] Referral ID Status Reason Start Date Expiration Date Visits Requested Visits Authorized [id number] Pending Review Auto-Generat ed Referral 3 09/25/2024 1 1 Specialty Diagnoses / Procedures Referred By Contac t Referred To Contact Diagnoses Malignant neoplasm of upper-outer quadrant of left breast in female, estrogen receptor positive (HCC) Procedures CONSULT TO MEDICAL GENETICS - CANCER MEDICAL GENETICS COUNSELING EACH 30 [place] [address] [address] [phone] [place] [address] [place] [address] Referral ID Status Reason Start Date Expiration Date Visits Requested Visits Authorized [id number] Pending Review PCP Requested Referral Auto-Generate d Referral 3 09/03/2024 1 1 Specialty Diagnoses / Procedures Referred By Contac t Referred To Contact Radiation Oncology Diagnoses Malignant neoplasm of upper-outer quadrant of left breast in female, estrogen receptor positive (HCC) Abnormal mammogram with microcalcification Procedures RAD/ONC CONSULT OFFICE/OUTPATIENT [facility] 60-[place] [address] [place] [address] Referral ID Status Reason Start Date Expiration Date Visits Requested Visits Authorized [id number] Pending Review PCP Requested Referral 3 09/03/2024 1 1 Specialty Diagnoses / Procedures Referred By Contac t Referred To Contact Diagnoses Malignant neoplasm of upper-outer quadrant of left breast in female, estrogen receptor positive (HCC) Abnormal mammogram with microcalcification Procedures CONSULT TO HEMATOLOGY/ONCOLOGY OFFICE/OUTPATIENT [facility] 60-[place] [address] [place] [address] Referral ID Status Reason Start Date Expiration Date Visits Requested Visits Authorized [id number] Pending Review PCP Requested Referral 3 12/03/2023 1 1 Specialty Diagnoses / Procedures Referred By Contac t Referred To Contact [facility] Diagnoses Breast disorder Procedures MRI CLIP PLACEMENT BREAST LEFT PERQ BREAST LOC DEVICE PLACEMT 1ST LESIO [place] [address] Referral ID Status Reason Start Date Expiration Date Visits Requested Visits Authorized [id number] Pending Review Auto-Generat ed Referral 09/16/2023 10/15/2024 1 1 Specialty Diagnoses / Procedures Referred By Contac t Referred To Contact [facility] Diagnoses Breast disorder Procedures US BIOPSY BREAST LEFT BX BREAST W/DEVICE 1ST LESION ULTRASOUND Lashell Borjas MD [facility] [address] [place] [address] Referral ID Status Reason Start Date Expiration Date Visits Requested Visits Authorized [id number] Pending Review Auto-Generat ed Referral 09/16/2023 10/15/2024 1 1 Additional Source Comments Source Comments (unrecognize d section and content) In the event this informatio n is protected by the Federal Confidentiality of Alcohol and Drug Abuse Patient Records regulations: The Federal rules restrict any use of the information to criminally investigate or prosecute any alcohol or drug abuse patient.[facility] the event this information is protected by the Federal Confidentiality of Alcohol and Drug Abuse Patient Records regulations: The Federal rules restrict any use of the information to criminally investigate or prosecute any alcohol or drug abuse patient.[facility] HospitalIn the event this information is protected by the Federal Confidentiality of Alcohol and Drug Abuse Patient Records regulations: The Federal rules restrict any use of the information to criminally investigate or prosecute any alcohol or drug abuse patient.[facility] HospitalIn the event this information is protected by the Federal Confidentiality of Alcohol and Drug Abuse Patient Records regulations: The Federal rules restrict any use of the information to criminally investigate or prosecute any alcohol or drug abuse patient.[facility] HospitalIn the event this information is protected by the Federal Confidentiality of Alcohol and Drug Abuse Patient Records regulations: The Federal rules restrict any use of the information to criminally investigate or prosecute any alcohol or drug abuse patient.[facility] HospitalIn the event this information is protected by the Federal Confidentiality of Alcohol and Drug Abuse Patient Records regulations: The Federal rules restrict any use of the information to criminally investigate or prosecute any alcohol or drug abuse patient.[facility] HospitalIn the event this information is protected by the Federal Confidentiality of Alcohol and Drug Abuse Patient Records regulations: The Federal rules restrict any use of the information to criminally investigate or prosecute any alcohol or drug abuse patient.[facility] HospitalIn the event this information is protected by the Federal Confidentiality of Alcohol and Drug Abuse Patient Records regulations: The Federal rules restrict any use of the information to criminally investigate or prosecute any alcohol or drug abuse patient.[facility] HospitalIn the event this information is protected by the Federal Confidentiality of Alcohol and Drug Abuse Patient Records regulations: The Federal rules restrict any use of the information to criminally investigate or prosecute any alcohol or drug abuse patient.[facility] HospitalIn the event this information is protected by the Federal Confidentiality of Alcohol and Drug Abuse Patient Records regulations: The Federal rules restrict any use of the information to criminally investigate or prosecute any alcohol or drug abuse patient.[facility] HospitalIn the event this information is protected by the Federal Confidentiality of Alcohol and Drug Abuse Patient Records regulations: The Federal rules restrict any use of the information to criminally investigate or prosecute any alcohol or drug abuse patient.[facility] HospitalIn the event this information is protected by the Federal Confidentiality of Alcohol and Drug Abuse Patient Records regulations: The Federal rules restrict any use of the information to criminally investigate or prosecute any alcohol or drug abuse patient.[facility] HospitalIn the event this information is protected by the Federal Confidentiality of Alcohol and Drug Abuse Patient Records regulations: The Federal rules restrict any use of the information to criminally investigate or prosecute any alcohol or drug abuse patient.[facility] HospitalIn the event this information is protected by the Federal Confidentiality of Alcohol and Drug Abuse Patient Records regulations: The Federal rules restrict any use of the information to criminally investigate or prosecute any alcohol or drug abuse patient.[facility] HospitalIn the event this information is protected by the Federal Confidentiality of Alcohol and Drug Abuse Patient Records regulations: The Federal rules restrict any use of the information to criminally investigate or prosecute any alcohol or drug abuse patient.[facility] HospitalIn the event this information is protected by the Federal Confidentiality of Alcohol and Drug Abuse Patient Records regulations: The Federal rules restrict any use of the information to criminally investigate or prosecute any alcohol or drug abuse patient.[facility] HospitalIn the event this information is protected by the Federal Confidentiality of Alcohol and Drug Abuse Patient Records regulations: The Federal rules restrict any use of the information to criminally investigate or prosecute any alcohol or drug abuse patient.[facility] HospitalIn the event this information is protected by the Federal Confidentiality of Alcohol and Drug Abuse Patient Records regulations: The Federal rules restrict any use of the information to criminally investigate or prosecute any alcohol or drug abuse patient.[facility] HospitalIn the event this information is protected by the Federal Confidentiality of Alcohol and Drug Abuse Patient Records regulations: The Federal rules restrict any use of the information to criminally investigate or prosecute any alcohol or drug abuse patient.[facility] HospitalIn the event this information is protected by the Federal Confidentiality of Alcohol and Drug Abuse Patient Records regulations: The Federal rules restrict any use of the information to criminally investigate or prosecute any alcohol or drug abuse patient.[facility] HospitalIn the event this information is protected by the Federal Confidentiality of Alcohol and Drug Abuse Patient Records regulations: The Federal rules restrict any use of the information to criminally investigate or prosecute any alcohol or drug abuse patient.[facility] HospitalIn the event this information is protected by the Federal Confidentiality of Alcohol and Drug Abuse Patient Records regulations: The Federal rules restrict any use of the information to criminally investigate or prosecute any alcohol or drug abuse patient.[facility] HospitalIn the event this information is protected by the Federal Confidentiality of Alcohol and Drug Abuse Patient Records regulations: The Federal rules restrict any use of the information to criminally investigate or prosecute any alcohol or drug abuse patient.[facility] HospitalIn the event this information is protected by the Federal Confidentiality of Alcohol and Drug Abuse Patient Records regulations: The Federal rules restrict any use of the information to criminally investigate or prosecute any alcohol or drug abuse patient.[facility] HospitalIn the event this information is protected by the Federal Confidentiality of Alcohol and Drug Abuse Patient Records regulations: The Federal rules restrict any use of the information to criminally investigate or prosecute any alcohol or drug abuse patient.[facility] HospitalIn the event this information is protected by the Federal Confidentiality of Alcohol and Drug Abuse Patient Records regulations: The Federal rules restrict any use of the information to criminally investigate or prosecute any alcohol or drug abuse patient.[facility] HospitalIn the event this information is protected by the Federal Confidentiality of Alcohol and Drug Abuse Patient Records regulations: The Federal rules restrict any use of the information to criminally investigate or prosecute any alcohol or drug abuse patient.[facility] HospitalIn the event this information is protected by the Federal Confidentiality of Alcohol and Drug Abuse Patient Records regulations: The Federal rules restrict any use of the information to criminally investigate or prosecute any alcohol or drug abuse patient.[facility] HospitalIn the event this information is protected by the Federal Confidentiality of Alcohol and Drug Abuse Patient Records regulations: The Federal rules restrict any use of the information to criminally investigate or prosecute any alcohol or drug abuse patient.[facility] HospitalIn the event this information is protected by the Federal Confidentiality of Alcohol and Drug Abuse Patient Records regulations: The Federal rules restrict any use of the information to criminally investigate or prosecute any alcohol or drug abuse patient.[facility] HospitalIn the event this information is protected by the Federal Confidentiality of Alcohol and Drug Abuse Patient Records regulations: The Federal rules restrict any use of the information to criminally investigate or prosecute any alcohol or drug abuse patient.[facility] HospitalIn the event this information is protected by the Federal Confidentiality of Alcohol and Drug Abuse Patient Records regulations: The Federal rules restrict any use of the information to criminally investigate or prosecute any alcohol or drug abuse patient.[facility] HospitalIn the event this information is protected by the Federal Confidentiality of Alcohol and Drug Abuse Patient Records regulations: The Federal rules restrict any use of the information to criminally investigate or prosecute any alcohol or drug abuse patient.[facility] HospitalIn the event this information is protected by the Federal Confidentiality of Alcohol and Drug Abuse Patient Records regulations: The Federal rules restrict any use of the information to criminally investigate or prosecute any alcohol or drug abuse patient.[facility] HospitalIn the event this information is protected by the Federal Confidentiality of Alcohol and Drug Abuse Patient Records regulations: The Federal rules restrict any use of the information to criminally investigate or prosecute any alcohol or drug abuse patient.[facility] HospitalIn the event this information is protected by the Federal Confidentiality of Alcohol and Drug Abuse Patient Records regulations: The Federal rules restrict any use of the information to criminally investigate or prosecute any alcohol or drug abuse patient.[facility] HospitalIn the event this information is protected by the Federal Confidentiality of Alcohol and Drug Abuse Patient Records regulations: The Federal rules restrict any use of the information to criminally investigate or prosecute any alcohol or drug abuse patient.[facility] HospitalIn the event this information is protected by the Federal Confidentiality of Alcohol and Drug Abuse Patient Records regulations: The Federal rules restrict any use of the information to criminally investigate or prosecute any alcohol or drug abuse patient.[facility] HospitalIn the event this information is protected by the Federal Confidentiality of Alcohol and Drug Abuse Patient Records regulations: The Federal rules restrict any use of the information to criminally investigate or prosecute any alcohol or drug abuse patient.[facility] HospitalIn the event this information is protected by the Federal Confidentiality of Alcohol and Drug Abuse Patient Records regulations: The Federal rules restrict any use of the information to criminally investigate or prosecute any alcohol or drug abuse patient.[facility] HospitalIn the event this information is protected by the Federal Confidentiality of Alcohol and Drug Abuse Patient Records regulations: The Federal rules restrict any use of the information to criminally investigate or prosecute any alcohol or drug abuse patient.[facility] HospitalIn the event this information is protected by the Federal Confidentiality of Alcohol and Drug Abuse Patient Records regulations: The Federal rules restrict any use of the information to criminally investigate or prosecute any alcohol or drug abuse patient.[facility] HospitalIn the event this information is protected by the Federal Confidentiality of Alcohol and Drug Abuse Patient Records regulations: The Federal rules restrict any use of the information to criminally investigate or prosecute any alcohol or drug abuse patient.[facility] HospitalIn the event this information is protected by the Federal Confidentiality of Alcohol and Drug Abuse Patient Records regulations: The Federal rules restrict any use of the information to criminally investigate or prosecute any alcohol or drug abuse patient.[facility] HospitalIn the event this information is protected by the Federal Confidentiality of Alcohol and Drug Abuse Patient Records regulations: The Federal rules restrict any use of the information to criminally investigate or prosecute any alcohol or drug abuse patient.[facility] HospitalIn the event this information is protected by the Federal Confidentiality of Alcohol and Drug Abuse Patient Records regulations: The Federal rules restrict any use of the information to criminally investigate or prosecute any alcohol or drug abuse patient.[facility] HospitalIn the event this information is protected by the Federal Confidentiality of Alcohol and Drug Abuse Patient Records regulations: The Federal rules restrict any use of the information to criminally investigate or prosecute any alcohol or drug abuse patient.[facility] HospitalIn the event this information is protected by the Federal Confidentiality of Alcohol and Drug Abuse Patient Records regulations: The Federal rules restrict any use of the information to criminally investigate or prosecute any alcohol or drug abuse patient.[facility] HospitalIn the event this information is protected by the Federal Confidentiality of Alcohol and Drug Abuse Patient Records regulations: The Federal rules restrict any use of the information to criminally investigate or prosecute any alcohol or drug abuse patient.[facility] HospitalIn the event this information is protected by the Federal Confidentiality of Alcohol and Drug Abuse Patient Records regulations: The Federal rules restrict any use of the information to criminally investigate or prosecute any alcohol or drug abuse patient.[facility] HospitalIn the event this information is protected by the Federal Confidentiality of Alcohol and Drug Abuse Patient Records regulations: The Federal rules restrict any use of the information to criminally investigate or prosecute any alcohol or drug abuse patient.[facility] HospitalIn the event this information is protected by the Federal Confidentiality of Alcohol and Drug Abuse Patient Records regulations: The Federal rules restrict any use of the information to criminally investigate or prosecute any alcohol or drug abuse patient.[facility] HospitalIn the event this information is protected by the Federal Confidentiality of Alcohol and Drug Abuse Patient Records regulations: The Federal rules restrict any use of the information to criminally investigate or prosecute any alcohol or drug abuse patient.[facility] HospitalIn the event this information is protected by the Federal Confidentiality of Alcohol and Drug Abuse Patient Records regulations: The Federal rules restrict any use of the information to criminally investigate or prosecute any alcohol or drug abuse patient.[facility] HospitalIn the event this information is protected by the Federal Confidentiality of Alcohol and Drug Abuse Patient Records regulations: The Federal rules restrict any use of the information to criminally investigate or prosecute any alcohol or drug abuse patient.[facility] HospitalIn the event this information is protected by the Federal Confidentiality of Alcohol and Drug Abuse Patient Records regulations: The Federal rules restrict any use of the information to criminally investigate or prosecute any alcohol or drug abuse patient.[facility] HospitalIn the event this information is protected by the Federal Confidentiality of Alcohol and Drug Abuse Patient Records regulations: The Federal rules restrict any use of the information to criminally investigate or prosecute any alcohol or drug abuse patient.[facility] HospitalIn the event this information is protected by the Federal Confidentiality of Alcohol and Drug Abuse Patient Records regulations: The Federal rules restrict any use of the information to criminally investigate or prosecute any alcohol or drug abuse patient.[facility] HospitalIn the event this information is protected by the Federal Confidentiality of Alcohol and Drug Abuse Patient Records regulations: The Federal rules restrict any use of the information to criminally investigate or prosecute any alcohol or drug abuse patient.[facility] HospitalIn the event this information is protected by the Federal Confidentiality of Alcohol and Drug Abuse Patient Records regulations: The Federal rules restrict any use of the information to criminally investigate or prosecute any alcohol or drug abuse patient.[facility] HospitalIn the event this information is protected by the Federal Confidentiality of Alcohol and Drug Abuse Patient Records regulations: The Federal rules restrict any use of the information to criminally investigate or prosecute any alcohol or drug abuse patient.[facility] HospitalIn the event this information is protected by the Federal Confidentiality of Alcohol and Drug Abuse Patient Records regulations: The Federal rules restrict any use of the information to criminally investigate or prosecute any alcohol or drug abuse patient.[facility] HospitalIn the event this information is protected by the Federal Confidentiality of Alcohol and Drug Abuse Patient Records regulations: The Federal rules restrict any use of the information to criminally investigate or prosecute any alcohol or drug abuse patient.[facility] HospitalIn the event this information is protected by the Federal Confidentiality of Alcohol and Drug Abuse Patient Records regulations: The Federal rules restrict any use of the information to criminally investigate or prosecute any alcohol or drug abuse patient.[facility] HospitalIn the event this information is protected by the Federal Confidentiality of Alcohol and Drug Abuse Patient Records regulations: The Federal rules restrict any use of the information to criminally investigate or prosecute any alcohol or drug abuse patient.[facility] Reason for Visit (unrecogniz ed section and content) Specialty Diagnoses / Procedures Referred By Contact Referred To Contact Gastroenterology / GASTROENTEROLOGY Diagnoses Screening for colon cancer Procedures CONSULT TO GASTROENTEROLOGY OFFICE/OUTPATIENT FOR[facility], [facility] MDM 60-74 MINUTES Amparo De Leon APRN.PODIATRIC FOOT AND [employer]KLE SPECIALIST [address] [place] [address] If Gastroenterology Referral ID Status Reason Start Date Expiration Date V isits Requested Visits Authorized [id number] Closed Financial Clearance Not Required Patient Cleared - INN Insurance Found 12/10/2021 10/10/2022 1 1 Reason Comments CPAP Supplies Compliance report Reason Comments Opened In Error Reason Comments New Patient Specialty Diagnoses / Procedures Referred By Laila bermudez Referred To Contact SLEEP DISORDERS Diagnoses ZEYNEP Procedures Consult to Sleep Medicine Ted Monroe, DO [address] [place] [address] [facility] [address] [place] [address] Referral ID Status Reason Start Date Expiration Date Visits Requested Visits Authorized [id number] Pending Review OON/Self Pay Override 03/04/2022 06/02/2022 [...] Self Corwin Norton MD [address] [place] [address] Referral ID Status Reason Start Date Expiration Date Visits Re quested Visits Authorized [id number] Closed 08/11/2023 10/10/2023 1 1 Reason Comments Radio Imaging Study Comments Reason Comments Radiology US Specialty Diagnoses / Procedures Referred By Laila bermudez Referred To Contact BR IMAGING Diagnoses Abnormality of both breasts on screening mammogram Procedures US BREAST LTD LEFT US BREAST UNI REAL TIME WITH IMAGE LIMITED Monroe, Ted L, DO [address] [place] [address] [facility] [address] [place] [address] Referral ID Status Reason Start Date Expiration Date V isits Requested Visits Authorized [id number] Closed Auto-Generate d Referral 08/03/2023 10/10/2023 1 [...] CONTRAST W/CAD BILATERAL Maria Victoria Camilo PA-C [address] [place] [address] [place] [address] Referral ID Status Reason Start Date Expiration Date V isits Requested Visits Authorized [id number] Closed Auto-Generate d Referral 09/15/2023 10/10/2023 1 [...] HIGH MDM 60-[address] [place] [address] [place] [address] Referral ID Status Reason Start Date Expiration Date Visits Requested Visits Authorized [id number] Pending Review PCP Requested Referral 3 09/03/2024 1 1 Reason Comments Patient Education LEFT mastectomy with SN bx/mapping Reason Comments Returning Patient's Call Reason Comments Orders Care Teams (unrecognized sec tion and content) 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 Start Date End Date Ted Monroe, DO [address] [place] [address] PCP - General Family Practice 01/24/14 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 Start Date End Date Ted Monroe, DO [address] [place] [address] PCP - General Family Practice 01/24/14 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 Start Date End Date Ted Monroe, DO [address] [place] [address] PCP - General Family Practice 01/24/14 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 Start Date End Date Ted Monroe, DO [address] [place] [address] PCP - General Family Practice 01/24/14 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 Start Date End Date Ted Monroe, DO [address] [place] [address] PCP - General Family Practice 01/24/14 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 Start Date End Date Ted Monroe, DO [address] [place] [address] PCP - General Family Practice 01/24/14 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 Start Date End Date Ted Monroe, DO [address] [place] [address] PCP - General Family Practice 01/24/14 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 Start Date End Date Ted Monroe, DO [address] [place] [address] PCP - General Family Practice 01/24/14 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 Start Date End Date Ted Monroe, DO [address] [place] [address] PCP - General Family Practice 01/24/14 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 Start Date End Date Ted Monroe, DO [address] [place] [address] PCP - General Family Practice 01/24/14 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 Start Date End Date Ted Monroe, DO [address] [place] [address] PCP - General Family Medicine 01/24/14 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 Start Date End Date Ted Monroe, DO [address] [place] [address] PCP - General Family Medicine 01/24/14 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 Start Date End Date Ted Monroe, DO [address] [place] [address] PCP - General Family Medicine 01/24/14 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 Start Date End Date Ted Monroe, DO [address] [place] [address] PCP - General Family Medicine 01/24/14 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 Start Date End Date Ted Monroe, DO [address] [place] [address] PCP - General Family Medicine 01/24/14 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 Start Date End Date Ted Monroe, DO [address] [place] [address] PCP - General Family Medicine 01/24/14 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 Start Date End Date Ted Monroe, DO [address] [place] [address] PCP - General Family Medicine 01/24/14 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 Start Date End Date Ted Monroe, DO [address] [place] [address] PCP - General Family Medicine 01/24/14 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 Start Date End Date Ted Monroe, DO [address] [place] [address] PCP - General Family Medicine 01/24/14 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 Start Date End Date Ted Monroe DO [address] [place] [address] PCP - General Family Medicine 01/24/14 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 Start Date End Date Ted Monroe DO [address] [place] [address] PCP - General Family Medicine 01/24/14 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 Start Date End Date Ted Monroe DO [address] [place] [address] PCP - General Family Medicine 01/24/14 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 Start Date End Date Ted Monroe DO [address] [place] [address] PCP - General Family Medicine 01/24/14 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 Start Date End Date Ted Monroe DO [address] [place] [address] PCP - General Family Medicine 01/24/14 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 Start Date End Date Ted Mnoroe DO [address] [place] [address] PCP - General Family Medicine 01/24/14 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 Start Date End Date Ted Monroe DO [address] [place] [address] PCP - General Family Medicine 01/24/14 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 Start Date End Date Ted Monroe DO [address] [place] [address] PCP - General Family Medicine 01/24/14 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 Start Date End Date Ted Monroe DO [address] [place] [address] PCP - General Family Medicine 01/24/14 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 Start Date End Date Ted Monroe DO [address] [place] [address] PCP - General Family Medicine 01/24/14 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 Start Date End Date Ted Monroe DO [address] [place] [address] PCP - General Family Medicine 01/24/14 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 Start Date End Date Ted Monroe DO [address] [place] [address] PCP - General Family Medicine 01/24/14 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 Start Date End Date Ted Monroe DO [address] [place] [address] PCP - General Family Medicine 01/24/14 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 Start Date End Date Ted Monroe DO [address] [place] [address] PCP - General Family Medicine 01/24/14 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 Start Date End Date Ted Monroe DO [address] [place] [address] PCP - General Family Medicine 01/24/14 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 Start Date End Date Ted Monroe DO [address] [place] [address] PCP - General Family Medicine 01/24/14 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 Start Date End Date Ted Monroe DO [address] [facility] [place] [address] PCP - General Family Medicine 01/24/14 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 Start Date End Date Ted Monroe DO [address] [place] [address] PCP - General Family Medicine 01/24/14 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 Start Date End Date Ted Monroe DO [address] [place] [address] PCP - General Family Medicine 01/24/14 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 Start Date End Date Ted Monroe DO [address] [place] [address] PCP - General Family Medicine 01/24/14 Jacoby Guevara MD, MD [address] [facility] [place] [address] Physician Radiation Oncology 09/09/23 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 Start Date End Date Ted Monroe DO [address] [place] [address] PCP - General Family Medicine 01/24/14 Jacoby Guevaar MD, [address] [facility] [address] Physician Radiation Oncology 09/09/23 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 Start Date End Date Ted Monroe DO [address] [place] [address] PCP - General Family Medicine 01/24/14 Jacoby Guevara MD, MD [address] [place] [address] Physician Radiation Oncology 09/09/23 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 Start Date End Date Ted Monroe DO [address] [place] [address] PCP - General Family Medicine 01/24/14 Jacoby Guevara MD, [address] [place] [address] Physician Radiation Oncology 09/09/23 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 Start Date End Date Ted Monroe DO [address] [place] [address] PCP - General Family Medicine 01/24/14 Jacoby Guevara MD, [address] [place] [address] Physician Radiation Oncology 09/09/23 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 Start Date End Date Ted Monroe DO [address] [place] [address] PCP - General Family Medicine 01/24/14 Jacoby Guevara MD, [address] [place] [address] Physician Radiation Oncology 09/09/23 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 Start Date End Date Ted Monroe DO [address] [place] [address] PCP - General Family Medicine 01/24/14 Jacoby Guevara MD, [address] [place] [address] Physician Radiation Oncology 09/09/23 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 Start Date End Date Ted Monroe DO [address] [place] [address] PCP - General Family Medicine 01/24/14 Jacoby Guevara MD, [address] [place] [address] Physician Radiation Oncology 09/09/23 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 Start Date End Date Ted Monroe DO [address] [place] [address] PCP - General Family Medicine 01/24/14 Jacoby Guevara MD, [address] [place] [address] Physician Radiation Oncology 09/09/23 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 Start Date End Date Ted Monroe DO [address] [place] [address] PCP - General Family Medicine 01/24/14 Jacoby Guevara MD, [address] [place] [address] Physician Radiation Oncology 09/09/23 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 Start Date End Date Ted Monroe DO [address] [place] [address] PCP - General Family Medicine 01/24/14 Jacoby Guevara MD, [address] [place] [address] Physician Radiation Oncology 09/09/23 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 Start Date End Date Ted Monroe DO [address] [place] [address] PCP - General Family Medicine 01/24/14 Jacoby Guevara MD [address] [place] [address] Physician Radiation Oncology 09/09/23 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 Start Date End Date Ted Monroe DO [address] [place] [address] PCP - General Family Medicine 01/24/14 Jacoby Guevara MD [address] [place] [address] Physician Radiation Oncology 09/09/23 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 [employer] [facility]. provides no warranty or guarantee of the accuracy or completeness of information in this document.
[2023-11-19] MEDS: Enoxaparin 40 MG/0.4 ML Syringe SC ×2 (11:02→20:56)
[2023-11-19] MEDS: 0.9% Normal Saline (1000mL) 1,000 ML 100 ML IV (11:02)
[2023-11-19] MEDS: FLUoxetine 20 MG Capsule PO (11:02)
[2023-11-19] MEDS: amLODIPine 2.5 MG Tablet PO (11:02)
[2023-11-19] MEDS: predniSONE 20 MG Tablet 40 MG PO (11:02)
[2023-11-19] MEDS: Magnesium Sulfate 2 GM in Dextrose 5%-Water (100mL Bag) 100 ML IV (11:09)
--- NOTE | 2023-11-19 11:30 | CASEMGMT ---
Patient was just discharged to home with outpatient therapy on 11/17/23. SEE RN CM assessment from 11/16/23. Patient states she was taking medications as prescribed. Patient was admitted for influenza A and requiring oxygen. Patient denies need for HHC at discharge. Will monitor for home oxygen at discharge, nhan prefers [employer]. Green sheet placed on chart. CM will continue to follow this patient and plan for a safe discharge.
[2023-11-19 14:01] LABS: Anion Gap 8 (5-15); BUN 16 mg/dL (7-18); BUN/Creat Ratio 14.8 RATIO (10-20); Calcium,Total 8.2 mg/dL (8.5-10.1); Chloride 108 mmol/L (98-107); Creatinine, Serum 1.08 mg/dL (0.55-1.02); EST Glomerular Filtration Rate 55 mL/min (>60); Est Glom Filt Rate - Afr Amer 66 mL/min (>60); Estimated Creatinine Clearance 75.53 ml/min; Glucose 118 mg/dL (74-106); Potassium 3.9 mmol/L (3.5-5.1); Sodium Level 137 mmol/L (136-145)
[2023-11-19] MEDS: Acetaminophen 325 MG Tablet 650 MG PO ×2 (16:27→20:55)
[2023-11-19] MEDS: Albuterol 2.5 MG/3 ML VIAL.NEB. INHALATION (19:13)
[2023-11-19] MEDS: Atorvastatin Calcium 20 MG Tablet PO (20:55)
[2023-11-19] MEDS: Metoprolol(XL)Succ 100 MG Tablet PO (20:55)
[2023-11-19] MEDS: Potassium Chloride Oral Soln 20 MEQ/15 ML UDC PO (20:56)
[2023-11-20] VITALS (7 sets, daily range): BP systolic 117–155; BP diastolic 58–94; PULSE 52–68; RESP 18–22; TEMP 36.4–37.8; O2SAT 94–98; BMI 45.9
--- NOTE | 2023-11-20 06:14 | PN.HOSP_ITS ---
Reason for Visit Reason for Visit: Diagnoses Influenza due to other identified influenza virus with other respiratory manife stations (11/19/23) Hypoxemia (11/19/23) Subjective Subjective Patient notes feeling improved from initial day of presentation however she still does have intermittent low-grade temperatures with some improvement with Tylenol. She does note that her cough is lessened but still is there and present especially deep inspiratory effort. She notes her other symptoms have improved and she is attempting to eat a bit more. Her daughter is present and she came to visit from out of town and assure that she is doing well. Patient denies fevers, chills, nausea, emesis, abdominal pain, chest pain. Objective Data Objective Data Vital Signs: Vital Signs Temp Pulse Resp BP Pulse Ox O2 Del Method O2 Flow Rate 97.7 F L 61 22 H 141/75 H 96 CPAP 3 11/20/23 02:12 11/20/23 02:12 11/20/23 02:12 11/20/23 02:12 11/20/23 02:12 11/20/23 02:34 11/20/23 02:34 Oxygen Flow Rate (L/min) 3 Oxygen Delivery Method CPAP Weight: 285 lb 15.033 oz Body Mass Index (BMI) 45.9 Intake & Output: Intake and Output for Last 24 Hours 11/18/23 11/19/23 11/20/23 23:59 23:59 23:59 Intake Total 1304.00 / 1304.00 Output Total 200 / 200 Balance 1104.00 / 1104.00 Lab / Micro Data 11/20/23 06:47 11/20/23 06:47 Labs: Laboratory Results - last 24 hr 11/19/23 06:11: WBC 8.6, RBC 3.99 L, Hgb 11.2 L, Hct 34.3 L, MCV 86.0, MCH 28.1, MCHC 32.7, RDW Std Deviation 42.5, RDW Coeff of Danilo 13.4, Plt Count , MPV 11.9, Immature Gran % (Auto) 0.600, Neut % (Auto) 78.3 H, Lymph % (Auto) 8.6 L, [place] % (Auto) 11.9 H, Eos % (Auto) 0.5, Baso % (Auto) 0.1, Absolute Neuts (auto) 6.8, Absolute Lymphs (auto) 0.74 L, Nucleated RBC % 0, Platelet Estimate MOD, Plt Morphology Comment CLUMPED, Sodium 139, Potassium 2.6 L*, Chloride 104, Carbon Dioxide 27.0, Anion Gap 8, BUN 20 H, Creatinine 1.14 H, Estim Creat Clear Calc 71.55, Est GFR (MDRD) Af Amer 62, Est GFR (MDRD) Non-Af 52 L, BUN/Creatinine Ratio 17.5, Glucose 106, Calcium 8.7, Magnesium 1.8 11/19/23 06:17: Lactic Acid 0.9 11/19/23 13:28: Sodium 137, Potassium 3.9, Chloride 108 H, Carbon Dioxide 21.0, Anion Gap 8, BUN 16, Creatinine 1.08 H, Estim Creat Clear Calc 75.53, Est GFR (MDRD) Af Amer 66, Est GFR (MDRD) Non-Af 55 L, BUN/Creatinine Ratio 14.8, Glucose 118 H, Calcium 8.2 L Micro: Microbiology 11/19/23 06:59 Mucosa - Nose SARS-CoV-2, Influenza & RSV (PCR) - Final Influenzae A Radiography Diagnostic Testing: Radiology Impression Chest CTA 11/19/23 06:17 IMPRESSION: Postsurgical absence of the left breast otherwise negative CTA chest.. Electronically Signed: Candido Graham MD at 8:14 EST , Physical Exam Narrative Physical Examination: General: Awake, alert, oriented x 3 and cooperative, seated upright in the medical surgical bed, fatigued but better appearance than day prior. Skin: Normal color, normal turgor, no icterus, no cyanosis except for occasional staged ecchymoses, left lateral chest status post RODERICK drainage reported per staff with dressing changes. HEENT: AT/NC, EOMI, PERRLA, improved MMM. Lungs: Still diminished, greater bases, significant coughing fits with deep inspiratory effort, no evidence of any distress, no rales, rhonchi or wheezing. Heart: Regular rate and rhythm; no gallop, rub audible. Abdomen: Soft, morbidly obese, NTTP, no obvious distention, normal BS. Extremities: No cyanosis, no clubbing, no marked peripheral edema, left knee moving with greater ease since prior admission. Neurological: Patient awake, alert, oriented as noted, cognitive function intact; pupils equally reactive to light and accommodation, cranial nerves grossly normal, moving all 4 extremities, no focal deficits, strength moderately to severely globally decreased. Psychiatric: Affect appears improved, still fatigued, no acute evidence of depressive or anxiety feelings but does have underlying history. Assessment & Plan Assessment/Plan (1) Hypoxia: (2) Influenza A: PLAN: Plan The patient is a 63 y/o F w/ PMHx: Possible CKD stage III unclear subtype, Breast L sided CA s/p recent mastectomy at [facility] following with Dr. Lopez with issues with bleeding (celebrex/IBU held) with recent admission RODERICK removal per her surgeon request, HTN, HLD, Chronic migraines, ZEYNEP on CPAP, Hx Nephrolithiasis, Anxiety and Depression, recent discharge 11/17/23 following evaluation for acute L knee pain/debility with gout flare diagnosis discharged to home on prednisone therapy who now re-presents to the [facility] ED on 11/19/23 with history of now 48 hours of throbbing headache, nonproductive cough, significant dyspnea worse with exertion, body aches, fevers, mild congestion as well as loose stools reporting that she had gone back to work and 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 1. Acute Debility, Adult FTT, Acute Hypoxia (decreased to 87%) secondary to Acute Influenza A Viral Syndrome: Admitted to [place], maintained on oxygen with wean as tolerated but currently requiring 3 L nasal cannula even at rest and suspect she may need some oxygen for discharge, PRN albuterol, HOB, IS parameters, maintained on tamiflu with plan 5-day course, continue supportive care, as needed cough regimen, antidiarrheal regimen as needed, PT/OT/CM consultation for discharge planning. If patient continues to improve will repeat oxygenation trial 11/21/2023 and if appropriate consider discharge home at that time. 2. Hypokalemia: Admission K+ 2.6, magnesium level 1.8 per ED, supplementation given, repeat level 11/29/23 3.9, improved. 11/20/23 K+ 3.2. Started on BID scheduled regimen as had hypokalemia prior admission also. Will continue closely trend to assure not inappropriately elevated but likely associated with her chronic hydrochlorothiazide regimen 3. Normocytic anemia, new: Upon admission hemoglobin 11.2, previously had been low 12 range, repeat 11/19/23 hemoglobin 11.2--> 11/20/2023 hemoglobin 10.5, MCV 86.5 with no obvious hemoptysis or altered stools, if decreases further we will discontinue Lovenox chemoprophylaxis and further investigate. 4. Recent L knee gout flare: Will continue fall precautions, maintain on prior prednisone regimen, continue PT/OT/CM consultation as noted above. 5. Left sided breast cancer, unclear specific type: Patient is uncertain of type but states potentially ductal carcinoma, status post recent left mastectomy approximately 7 weeks prior, RODERICK drain removed prior admission, continue dry dressings to region. Encouraged continued follow-up with Dr. Lopez and her surgeon. 6. Hypertension: Continue home regimen including metoprolol, will hold hydrochlorothiazide until 11/20/23, PRN hydralazine. 7. Suspected Chronic Kidney Disease Stage III, unclear subtype: Admission BUN/Cr 20/1.14, GFR 52, again consistent with CKD stage III as prior admission also, 11/20/23 BUN/Cr 15/1.07, continue to trend, hydration given #1. 8. Anxiety and depression: We will continue patient on fluoxetine regimen. 9. Obesity: Weight loss and lifestyle changes encouraged. 10. Chronic migraines: Per current list not on chronic regimen, if necessary may add. 11. Hyperlipidemia: Per current list on a regimen, defer to outpatient. 12. ZEYNEP: CPAP nightly. 13. DVT prophylaxis: Lovenox. 14. CODE status: Patient SHEILA is her children and living will is currently in place. Full Code status. Charges/Coding Visit Charges Inpatient E&M: 05365 Subs Hosp L2
[2023-11-20] MEDS: Acetaminophen 325 MG Tablet 650 MG PO ×4 (06:36→22:06)
[2023-11-20 06:56] LABS: Absolute Lymphocyte Count 1.47 X10^3/uL (0.83-4.51); Absolute Neutrophil Count 4.7 X10^3/uL (2.0-7.7); Basophil# 0.02 X10^3/uL; Basophil% 0.3 % (0-1); Eosinophil# 0.03 X10^3/uL; Eosinophils% 0.4 % (0-5); Hematocrit 32.8 % (37-47); Hemoglobin 10.5 g/dL (12.0-15.0); Lymphocyte # 1.47 X10^3/ul (0.83-4.51); Lymphocyte % 20.4 % (19-41); Mean Corpuscular Hgb 27.7 pg (27.0-32.0); Mean Corpuscular Volume 86.5 fL (81-99); Mean Platelet Vol. 10.8 fl (6.2-12.0); Monocyte# 0.93 X10^3/uL; Monocyte% 12.9 % (0-10); NRBC Flagged by Analyzer 0 % (0-5); Neutrophil # 4.73 X10^3/uL (2.7-7.7); Neutrophil % 65.6 % (47-70); Platelet Count 176 K/mm3 (150-450); RBC Distribution Width CV 13.4 % (11.6-14.6); RBC Distribution Width SD 42.5 fl (35.1-43.9); Red Blood Count 3.79 M/mm3 (4.2-5.4); White Blood Count 7.2 K/mm3 (4.4-11.0)
[2023-11-20 07:34] LABS: AST(SGOT) 46 U/L (15-37); Alanine Aminotransfer ALT/SGPT 52 U/L (13-56); Albumin, Serum 3.2 g/dL (3.2-5.0); Alkaline Phosphatase 63 U/L (45-117); Anion Gap 5 (5-15); BUN 15 mg/dL (7-18); Calcium,Total 8.3 mg/dL (8.5-10.1); Chloride 107 mmol/L (98-107); Creatinine, Serum 1.07 mg/dL (0.55-1.02); EST Glomerular Filtration Rate 55 mL/min (>60); Est Glom Filt Rate - Afr Amer 67 mL/min (>60); Estimated Creatinine Clearance 76.23 ml/min; Globulin 3.3 g/dL (2.2-4.2); Glucose 102 mg/dL (74-106); Potassium 3.2 mmol/L (3.5-5.1); Protein, Total 6.5 g/dL (6.4-8.2); Sodium Level 138 mmol/L (136-145)
[2023-11-20] MEDS: hydroCHLOROthiazide 12.5mg 12.5 MG PO (09:45)
[2023-11-20] MEDS: predniSONE 20 MG Tablet 40 MG PO (09:46)
[2023-11-20] MEDS: Oseltamivir Phosphate 75 MG Capsule PO ×2 (09:46→21:49)
[2023-11-20] MEDS: FLUoxetine 20 MG Capsule PO (09:46)
[2023-11-20] MEDS: amLODIPine 2.5 MG Tablet PO (09:47)
[2023-11-20] MEDS: Potassium Chloride Oral Soln 20 MEQ/15 ML UDC 40 MEQ PO (09:47)
[2023-11-20] MEDS: Enoxaparin 40 MG/0.4 ML Syringe SC ×2 (09:47→21:53)
[2023-11-20] MEDS: 0.9% Saline Lock 10 ML Syringe IV (18:10)
[2023-11-20] MEDS: Atorvastatin Calcium 20 MG Tablet PO (21:48)
[2023-11-20] MEDS: Potassium Chloride Oral Soln 20 MEQ/15 ML UDC PO (21:48)
[2023-11-21 04:47] VITALS: BMI 44.2
[2023-11-21 05:05] VITALS: BP 136/70; PULSE 47; RESP 16; TEMP 36.6; O2SAT 98
[2023-11-21] MEDS: Acetaminophen 325 MG Tablet 650 MG PO (05:09)
--- NOTE | 2023-11-21 06:08 | PN.HOSP_ITS ---
Reason for Visit Reason for Visit: Diagnoses Influenza due to other identified influenza virus with other respiratory manife stations (11/19/23) Hypoxemia (11/19/23) Subjective Subjective Patient overnight with no acute events per self and per nursing report. She notes still coughing with deep inspiratory effort but breathing with greater ease. She has been moving around her room also and in bed without getting short of breath. Discussed plan of care for oxygenation trial and if she needs oxygen will be arranged for home. She states she does feel comfortable and is amenable for discharge to home. She did say she was able to eat food the day prior and had an appetite which she had not previously. Patient denies fevers, chills, nausea, emesis, abdominal pain, chest pain or worsening dyspnea. Objective Data Objective Data Vital Signs: Vital Signs Temp Pulse Resp BP Pulse Ox O2 Del Method O2 Flow Rate 98 F 47 L 16 136/70 H 98 CPAP 1 11/21/23 05:05 11/21/23 05:05 11/21/23 05:05 11/21/23 05:05 11/21/23 05:05 11/21/23 05:05 11/20/23 22:20 Oxygen Flow Rate (L/min) 1 Oxygen Delivery Method CPAP Weight: 275 lb 9.245 oz Body Mass Index (BMI) 44.2 Intake & Output: Intake and Output for Last 24 Hours 11/19/23 11/20/23 11/21/23 23:59 23:59 23:59 Intake Total 1304.00 / 1304.00 900 / 900 Output Total 200 / 200 Balance 1104.00 / 1104.00 900 / 900 Lab / Micro Data 11/21/23 07:29 11/21/23 07:29 Labs: Laboratory Results - last 24 hr 11/20/23 06:47: WBC 7.2, RBC 3.79 L, Hgb 10.5 L, Hct 32.8 L, MCV 86.5, MCH 27.7, MCHC 32.0, RDW Std Deviation 42.5, RDW Coeff of Danilo 13.4, Plt Count 176, MPV 10.8, Immature Gran % (Auto) 0.400, Neut % (Auto) 65.6, Lymph % (Auto) 20.4, [place] % (Auto) 12.9 H, Eos % (Auto) 0.4, Baso % (Auto) 0.3, Absolute Neuts (auto) 4.7, Absolute Lymphs (auto) 1.47, Nucleated RBC % 0, Sodium 138, Potassium 3.2 L , Chloride 107, Carbon Dioxide 26.0, Anion Gap 5, BUN 15, Creatinine 1.07 H, Estim Creat Clear Calc 76.23, Est GFR (MDRD) Af Amer 67, Est GFR (MDRD) Non-Af 55 L, BUN/Creatinine Ratio 14.0, Glucose 102, Calcium 8.3 L, Total Bilirubin 0.90, AST 46 H, ALT 52, Alkaline Phosphatase 63, Total Protein 6.5, Albumin 3.2, Globulin 3.3, Albumin/Globulin Ratio 1.0 Micro: Microbiology 11/19/23 06:59 Mucosa - Nose SARS-CoV-2, Influenza & RSV (PCR) - Final Influenzae A Physical Exam Narrative Physical Examination: General: Awake, alert, oriented x 3 and cooperative, seated upright in the medical surgical bed, notes feeling better, discussed plan of care and discharged which she is amenable. Skin: Normal color, normal turgor, no icterus, no cyanosis except for occasional staged ecchymoses, left lateral chest status post RODERICK drainage reported per staff with dressing changes. HEENT: AT/NC, EOMI, PERRLA, MMM. Lungs: Still diminished, greater bases, still having coughing fits with deep inspiratory effort but less than day prior, still a dry cough, no rales, rhonchi or wheezing. Heart: Regular rate and rhythm; no gallop, rub audible. Abdomen: Soft, morbidly obese, NTTP, no obvious distention, normal BS. Extremities: No cyanosis, no clubbing, no marked peripheral edema, left knee moving with greater ease since prior admission. Neurological: Patient awake, alert, oriented as noted, cognitive function intact; pupils equally reactive to light and accommodation, cranial nerves grossly normal, moving all 4 extremities, no focal deficits, strength improved, moderately globally decreased. Psychiatric: Affect appears improved,, less fatigued, notes feeling well enough to discharge to home, no acute evidence of depressive or anxiety feelings but does have underlying history. Assessment & Plan Assessment/Plan (1) Hypoxia: (2) Influenza A: PLAN: Plan The patient is a 63 y/o F w/ PMHx: Possible CKD stage III unclear subtype, Breast L sided CA s/p recent mastectomy at [facility] following with Dr. Lopez with issues with bleeding (celebrex/IBU held) with recent admission RODERICK removal per her surgeon request, HTN, HLD, Chronic migraines, ZEYNEP on CPAP, Hx Nephrolithiasis, Anxiety and Depression, recent discharge 11/17/23 following evaluation for acute L knee pain/debility with gout flare diagnosis discharged to home on prednisone therapy who now re-presents to the [facility] ED on 11/19/23 with history of now 48 hours of throbbing headache, nonproductive cough, significant dyspnea worse with exertion, body aches, fevers, mild congestion as well as loose stools reporting that she had gone back to work and 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 1. Acute Debility, Adult FTT, Acute Hypoxia (decreased to 87%) secondary to Acute Influenza A Viral Syndrome: Admitted to [place], maintained on oxygen with wean as tolerated but currently requiring 3 L nasal cannula even at rest and suspect she may need some oxygen for discharge, PRN albuterol, HOB, IS parameters, maintained on tamiflu with plan 5-day course, continue supportive care, as needed cough regimen, antidiarrheal regimen as needed, PT/OT/CM consultation for discharge planning. 11/21/2023 discussion with patient with no acute events overnight, improved appetite, symptoms lessening although still cough with deep inspiratory effort. Will obtain ambulatory oxygenation trial to be cautious and plan discharge to home today per discussion with patient. 2. Hypokalemia: Admission K+ 2.6, magnesium level 1.8 per ED, supplementation given, repeat level 11/29/23 3.9, improved. 11/20/23 K+ 3.2. Started on BID scheduled regimen as had hypokalemia prior admission also. 11/21/2023 potassium 3.1, will be given her a.m. dose of her twice daily regimen which we continued upon discharge with recommendation for repeat basic metabolic panel outpatient and regimen may need to be further altered versus alteration of her hypertensive regimen. 3. Normocytic anemia, new: Upon admission hemoglobin 11.2, previously had been low 12 range, repeat 11/19/23 hemoglobin 11.2--> 11/21/2023 hemoglobin 10.6, MCV 87.4, with no obvious hemoptysis or altered stools. 4. Recent L knee gout flare: Will continue fall precautions, maintain on prior prednisone regimen, continue PT/OT/CM consultation as noted above. 5. Left sided breast cancer, unclear specific type: Patient is uncertain of type but states potentially ductal carcinoma, status post recent left mastectomy approximately 7 weeks prior, RODERICK drain removed prior admission, continue dry dressings to region. Encouraged continued follow-up with Dr. Lopez and her surgeon. 6. Hypertension: Continue home regimen including metoprolol, will hold hydrochlorothiazide until 11/20/23, PRN hydralazine. 7. Suspected Chronic Kidney Disease Stage III, unclear subtype: Admission BUN/Cr 20/1.14, GFR 52, again consistent with CKD stage III as prior admission also, 11/21/2023 BUN/creatinine 16/0.9. 8. Anxiety and depression: We will continue patient on fluoxetine regimen. 9. Obesity: Weight loss and lifestyle changes encouraged. 10. Chronic migraines: Per current list not on chronic regimen, if necessary may add. 11. Hyperlipidemia: Per current list on a regimen, defer to outpatient. 12. ZEYNEP: CPAP nightly. 13. DVT prophylaxis: Lovenox. 14. CODE status: Patient SHEILA is her children and living will is currently in place. Full Code status. Charges/Coding Visit Charges Inpatient E&M: 85903 Subs Hosp L2
[2023-11-21 06:59] VITALS: O2SAT 94
[2023-11-21 07:40] LABS: Absolute Lymphocyte Count 2.07 X10^3/uL (0.83-4.51); Absolute Neutrophil Count 2.7 X10^3/uL (2.0-7.7); Basophil# 0.02 X10^3/uL; Basophil% 0.4 % (0-1); Eosinophil# 0.06 X10^3/uL; Eosinophils% 1.1 % (0-5); Hematocrit 33.3 % (37-47); Hemoglobin 10.6 g/dL (12.0-15.0); Lymphocyte # 2.07 X10^3/ul (0.83-4.51); Lymphocyte % 38.7 % (19-41); Mean Corp Hgb Conc 31.8 g/dL (32-36); Mean Corpuscular Hgb 27.8 pg (27.0-32.0); Mean Corpuscular Volume 87.4 fL (81-99); Mean Platelet Vol. 10.7 fl (6.2-12.0); Monocyte# 0.53 X10^3/uL; Monocyte% 9.9 % (0-10); NRBC Flagged by Analyzer 0 % (0-5); Neutrophil # 2.65 X10^3/uL (2.7-7.7); Neutrophil % 49.5 % (47-70); Platelet Count 172 K/mm3 (150-450); RBC Distribution Width CV 13.3 % (11.6-14.6); RBC Distribution Width SD 42.5 fl (35.1-43.9); Red Blood Count 3.81 M/mm3 (4.2-5.4); White Blood Count 5.4 K/mm3 (4.4-11.0)
[2023-11-21 08:06] LABS: ALB/GLOB Ratio 0.9 RATIO (0.9-2.4); AST(SGOT) 36 U/L (15-37); Alanine Aminotransfer ALT/SGPT 53 U/L (13-56); Alkaline Phosphatase 65 U/L (45-117); Anion Gap 8 (5-15); BUN 16 mg/dL (7-18); BUN/Creat Ratio 17.7 RATIO (10-20); Calcium,Total 8.5 mg/dL (8.5-10.1); Chloride 108 mmol/L (98-107); EST Glomerular Filtration Rate 67 mL/min (>60); Est Glom Filt Rate - Afr Amer 81 mL/min (>60); Estimated Creatinine Clearance 88.68 ml/min; Globulin 3.5 g/dL (2.2-4.2); Glucose 97 mg/dL (74-106); Potassium 3.1 mmol/L (3.5-5.1); Protein, Total 6.5 g/dL (6.4-8.2); Sodium Level 142 mmol/L (136-145)
[2023-11-21 10:00] VITALS: PULSE 58; O2SAT 91
--- NOTE | 2023-11-21 10:06 | PCM.DC.SUM ---
Providers Date of Admission: 11/19/23 Date of Discharge: 11/21/23 Primary Care Physician: Dr. Ted Monroe DO Reason For Visit: HYPOXIA, INFLUENZA A Diagnosis Discharge Diagnosis (1) Hypoxia: Status: Acute Code(s): R09.02 - Hypoxemia Plan: DISCHARGE DIAGNOSES: 1. Acute Debility, Adult FTT, Acute Hypoxia (decreased to 87%) secondary to Acute Influenza A Viral Syndrome 2. Hypokalemia, likely in part secondary to her HCTZ chronic regimen 3. Normocytic anemia, new, unclear etiology 4. Recent L knee gout flare 5. Left sided breast cancer, unclear specific type 6. Hypertension 7. Suspected Chronic Kidney Disease Stage III, unclear subtype 8. Anxiety and depression 9. Obesity 10. Chronic migraines 11. Hyperlipidemia 12. ZEYNEP on CPAP nightly. (2) Influenza A: Status: Acute Code(s): J10.1 - Influenza due to other identified influenza virus with other respiratory manifestations Medications at Discharge Home Medications hydrochlorothiazide 12.5 mg capsule 12.5 mg PO DAILY HTN 05/29/18 metoprolol succinate 100 mg tablet,extended release 24 hr 100 mg PO QHS HTN 05/29/18 fluoxetine 20 mg capsule 20 mg PO DAILY MOOD 09/26/18 ibuprofen 600 mg tablet 600 mg PO 4X/DAY pain or cramping #30 tabs 09/27/18 amlodipine 2.5 mg tablet 2.5 mg PO DAILY HTN 11/16/23 oxycodone-acetaminophen 5 mg-325 mg tablet 1 tab PO Q6H PRN PRN Pain 3 days #12 TABLETS 11/16/23 rosuvastatin 10 mg tablet 10 mg PO QHS CHOLESTEROL 11/16/23 prednisone 20 mg tablet 40 mg (2 x 20 mg) PO DAILY STEROID 7 days #14 tabs 11/17/23 cholecalciferol (vitamin D3) 125 mcg (5,000 unit) capsule 125 mcg PO DAILY supplement 11/19/23 cyanocobalamin (vitamin B-12) 1,000 mcg/mL injection solution 1,000 mcg IM .COMPLEX SUPPLEMENT 11/19/23 guaifenesin 100 mg/5 mL oral liquid 200 mg (10 mL) PO Q4H PRN PRN COUGH 10 days #473 mL 11/21/23 loperamide 2 mg capsule 2 mg PO Q2H PRN PRN Diarrhea associated w/ Influenza 10 days #20 caps 11/21/23 oseltamivir 75 mg capsule 75 mg PO BID 3 days #6 caps 11/21/23 potassium chloride 20 mEq/15 mL oral liquid 20 meq (15 mL) PO BID Low K 14 days #420 mL 11/21/23 Hospital Course Operations None Procedures EKG Summary of Care Provided Minutes Spent on Discharge: 35 Hospital Course: The patient is a 63 y/o F w/ PMHx: Possible CKD stage III unclear subtype, Breast L sided CA s/p recent mastectomy at [facility] following with Dr. Lopez with issues with bleeding (celebrex/IBU held) with recent admission RODERICK removal per her surgeon request, HTN, HLD, Chronic migraines, ZEYNEP on CPAP, Hx Nephrolithiasis, Anxiety and Depression, recent discharge 11/17/23 following evaluation for acute L knee pain/debility with gout flare diagnosis discharged to home on prednisone therapy who now re-presented to the [facility] ED on 11/19/23 with history of now 48 hours of throbbing headache, nonproductive cough, significant dyspnea worse with exertion, body aches, fevers, mild congestion as well as loose stools reporting that she had gone back to work and 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 Admitted to [place], maintained on oxygen with wean as tolerated but currently requiring 3 L nasal cannula even at rest and suspect she may need some oxygen for discharge, PRN albuterol, HOB, IS parameters, maintained on tamiflu with plan 5-day course, continue supportive care, as needed cough regimen, antidiarrheal regimen as needed, PT/OT/CM consultation for discharge planning. 11/21/2023 discussion with patient with no acute events overnight, improved appetite, symptoms lessening although still cough with deep inspiratory effort. Admission K+ 2.6, magnesium level 1.8 per ED, supplementation given, repeat level 11/29/23 3.9, improved. 11/20/23 K+ 3.2. Started on BID scheduled regimen as had hypokalemia prior admission also. 11/21/2023 potassium 3.1, given her a.m. dose of her twice daily regimen which was continued upon discharge with recommendation for repeat basic metabolic panel outpatient and regimen may need to be further altered versus alteration of her hypertensive regimen. Upon admission hemoglobin 11.2, previously had been low 12 range, repeat 11/19/23 hemoglobin 11.2--> 11/21/2023 hemoglobin 10.6, MCV 87.4, with no obvious hemoptysis or altered stools with recommendation for continued evaluation outpatient with repeat CBC with PCP follow-up. Given recent gout flare, continued prior interventions with continued improvement. With recent L chest RODERICK removal s/p mastectomy with Breast CA, continued dry dressings to region and again encouraged continued follow-up with Dr. Lopez and her surgeon. 11/21/23 given clinical improvement, oxygenation trial obtained and noted no need for oxygen supplementation only dropping down to 91% while ambulating. Patient discharged to home in stable improved condition with PCP follow-up as recommended and to continue prior follow-up arranged to admission previously. Weight / BMI Weight Weight: 275 lb 9.245 oz Body Mass Index (BMI) 44.2 ABG / Lab / Microbiology Data 11/21/23 07:29 11/21/23 07:29 Laboratory: Laboratory Results - last 24 hr 11/21/23 07:29: WBC 5.4, RBC 3.81 L, Hgb 10.6 L, Hct 33.3 L, MCV 87.4, MCH 27.8, MCHC 31.8 L, RDW Std Deviation 42.5, RDW Coeff of Danilo 13.3, Plt Count 172, MPV 10.7, Immature Gran % (Auto) 0.400, Neut % (Auto) 49.5, Lymph % (Auto) 38.7, [place] % (Auto) 9.9, Eos % (Auto) 1.1, Baso % (Auto) 0.4, Absolute Neuts (auto) 2.7, Absolute Lymphs (auto) 2.07, Nucleated RBC % 0, Sodium 142, Potassium 3.1 L, Chloride 108 H, Carbon Dioxide 26.0, Anion Gap 8, BUN 16, Creatinine 0.90, Estim Creat Clear Calc 88.68, Est GFR (MDRD) Af Amer 81, Est GFR (MDRD) Non-Af 67, BUN/Creatinine Ratio 17.7, Glucose 97, Calcium 8.5, Total Bilirubin 1.00, AST 36, ALT 53, Alkaline Phosphatase 65, Total Protein 6.5, Albumin 3.0 L, Globulin 3.5, Albumin/Globulin Ratio 0.9 Microbiology: Microbiology 11/19/23 06:57 Blood Culture (Wb) - Right Forearm Blood Culture - Preliminary No growth in 48 hours. 11/19/23 06:11 Blood Culture (Wb) - Anticubital Right Blood Culture - Preliminary No growth in 48 hours. 11/19/23 06:59 Mucosa - Nose SARS-CoV-2, Influenza & RSV (PCR) - Final Influenzae A D/C Instructions Discharge Diet: Low fat / Low cholesterol May resume sexual activity in: 10-14 days Weight Bearing Status: Weight bearing as tolerated Call your doctor if you observe: Fever of 101 or Higher, Shortness of breath, Dizziness, Chest pain, Increased palpitations (irregular heartbeat), Calf discomfort and Uncontrolled pain Meaningful Use Info Meaningful Use Diagnoses (Choose all that apply): None applicable Discharge Plan Admission Admit Date/Time: 11/19/23 08:25 Primary Reason for Your Visit: Hypoxia, Acute Influenza A Viral Syndrome, Hypokalemia Attending Provider: Rama Su Primary Care Provider: Ted Monroe Instructions Patient Instructions: Understanding Oxygen Therapy, Traveling with Oxygen, Hypokalemia Dc, ED Influenza (Adult) Additional Instructions / Restrictions: ADDITIONAL DISCHARGE INSTRUCTIONS/PLAN OF CARE: 1. Acute Debility, Adult FTT, Acute Hypoxia (decreased to 87%) secondary to Acute Influenza A Viral Syndrome: --Complete your tamiflu regimen. --Use as needed cough syrup and antidiarrheal regimen. --Encourage continued incentive spirometry upon discharge 10x/hr from after breakfast to before dinner. --If oxygen necessary upon discharge to home this will be de-escalated to off per your primary care physician and re-assessed at follow-up. 2. Hypokalemia: --During the admission your potassium was low. This was supplemented and you were started on a twice daily supplementation regimen. Please continue this and have repeat complete metabolic panel with your primary care physician. You may need your BP regimen with the HCTZ altered if this is an ongoing issue. 3. Normocytic anemia, new: --Upon admission hemoglobin 11.2, previously had been low 12 range, 11/21/2023 hemoglobin 10.6, MCV 87.4, with no obvious hemoptysis or altered stools. Please continue to have evaluation outpatient. 4. Recent L knee gout flare: Please continue to be careful ambulating. Use assistive devices. Continue plan per prior admission. 5. Left sided breast cancer: Recently during prior admission RODERICK drain removed. Please continue dry dressings to region. As noted last admission please follow-up with Dr. Lopez and your surgeon. 6. ZEYNEP: Consider re-assessment for your sleep apnea to ascertain if oxygen needs to be bled into it as night as you noted feeling much better with this adjustment while inpatient; however, of note this was secondary to your need for supplementation with the low oxygen with influenza. Discharge Orders/Prescriptions Prescriptions: New potassium chloride 20 mEq/15 mL Liquid 20 meq PO BID 14 Days Qty: 420 0RF oseltamivir 75 mg Capsule 75 mg PO BID 3 Days Qty: 6 0RF guaifenesin 100 mg/5 mL Liquid 200 mg PO Q4H PRN PRN (Reason: COUGH) 10 Days Qty: 473 0RF loperamide 2 mg Capsule 2 mg PO Q2H PRN PRN (Reason: Diarrhea associated w/ Influenza) 10 Days Qty: 20 0RF Continued metoprolol succinate 100 MG tablet extended release 24 hr 100 mg PO QHS Patient Comments: hydrochlorothiazide 12.5 MG capsule 12.5 mg PO DAILY Patient Comments: fluoxetine 20 MG capsule 20 mg PO DAILY cholecalciferol (vitamin D3) 125 mcg (5,000 unit) capsule 125 mcg PO DAILY cyanocobalamin (vitamin B-12) 1,000 mcg/mL solution 1,000 mcg IM .COMPLEX Rx Instructions: 1,000 mcg intramuscularly MONTHLY; oxycodone-acetaminophen 5-325 mg tablet 1 tab PO Q6H PRN PRN (Reason: Pain) 3 Days Qty: 12 0RF amlodipine 2.5 mg tablet 2.5 mg PO DAILY rosuvastatin 10 mg tablet 10 mg PO QHS prednisone 20 mg tablet 40 mg PO DAILY 7 Days Qty: 14 0RF Rx Instructions: Please discuss tapering following this regimen with your primary care. Held ibuprofen 600 MG tablet 600 mg PO 4X/DAY Qty: 30 1RF Hold Instructions: Resume on 12/15/23. DO NOT RESUME UNTIL CLEARED PER ONCOLOGY. Referrals / Follow Up: Ted Monroe DO [Primary Care Provider] - (Follow-up within 3-5 days to review admission. Please have repeat completed blood count and basic metabolic panel at follow-up.) Disposition Disposition (needs filled in before D/C Order can be placed): Home Health Service Charges/Coding Visit Charges Inpatient E&M: 88155 Disch Hosp >30min
[2023-11-21] MEDS: FLUoxetine 20 MG Capsule PO (10:48)
[2023-11-21] MEDS: Oseltamivir Phosphate 75 MG Capsule PO (10:51)
[2023-11-21] MEDS: Potassium Chloride Oral Soln 20 MEQ/15 ML UDC PO (10:52)
[2023-11-21] MEDS: predniSONE 20 MG Tablet 40 MG PO (10:52)
[2023-11-21] MEDS: Enoxaparin 40 MG/0.4 ML Syringe SC (10:52)
[2023-11-21 10:55] VITALS: O2SAT 94
[2023-11-21 10:56] VITALS: O2SAT 91; O2SAT 94
[2023-11-21 11:00] VITALS: BP 138/72; PULSE 58; RESP 18; TEMP 36.4; O2SAT 91
[2023-11-21] MEDS: amLODIPine 2.5 MG Tablet PO (12:10)
[2023-11-21] MEDS: hydroCHLOROthiazide 12.5mg 12.5 MG PO (12:10)
== END 2023-11-21 13:25 | disposition home health service (06) | DRG 194 ==
LOC: ED 08:27 → MS3 08:59
PROVIDERS: Admitting Provider Family Medicine; Emergency Provider Emergency Medicine; PCP Student in an Organized Health Care Education/Training Program; Visit Provider Family Medicine
DX: J10.1 Influenza due to other identified influenza virus with other respiratory manifestations (principal); Z68.42 Body mass index [BMI] 45.0-49.9, adult; C50.912 Malignant neoplasm of unspecified site of left female breast; D64.9 Anemia, unspecified; E78.5 Hyperlipidemia, unspecified; E66.9 Obesity, unspecified; N18.30 Chronic kidney disease, stage 3 unspecified; I12.9 Hypertensive chronic kidney disease with stage 1 through stage 4 chronic kidney disease, or unspecified chronic kidney disease; E87.6 Hypokalemia; G47.33 Obstructive sleep apnea (adult) (pediatric); G43.709 Chronic migraine without aura, not intractable, without status migrainosus; M10.062 Idiopathic gout, left knee; F41.8 Other specified anxiety disorders; R53.81 Other malaise; Z79.1 Long term (current) use of non-steroidal anti-inflammatories (NSAID); Z90.12 Acquired absence of left breast and nipple; R09.02 Hypoxemia; Z99.89 Dependence on other enabling machines and devices; Z79.899 Other long term (current) drug therapy
CPT/HCPCS: 36415; 71275; 80048; 80053; 83605; 83735; 85025; 87040; 87631; 94640; 94668; 97161; 99283; J7030; Q9967; A4216